=== PATIENT | female | born 1955 | race Caucasian/White ===

== ENCOUNTER → 2016-10-26 | Outpatient (CLI) | payer MEDICARE, MEDICAID ==
[~2016-10-26] MED LIST: AC325T PO; AC500T PO; ACET-2303 PO; ALBU2.5V52 INH; AMPH20TA2 PO; AMPH30TA2 PO; CALC-9 PO; DCS100C PO; FESO8TAB SQ; FLC100T1 PO; HYDR25CA92 PO; KCL20TCR PO; LEVO750T24 PO; LRT10T PO; LSNP20T PO; MELO-198 PO; NITR-65 PO; OMEP-10 PO; PNT40TEC PO; TERI202.4P SQ
--- NOTE | 2016-10-26 13:36 | Diagnostic Imaging Report ---
PROCEDURE: CT head without contrast. TECHNIQUE: Multiple contiguous axial images were obtained through the brain without the use of intravenous contrast. Indication: Headache, evaluate shunt placement and function. Comparison: 04/06/2013. Discussion: No adverse interval change. Bilateral transfrontal ventriculostomy catheters are again noted, unchanged in position. Dense calcification along the tip of the right catheter in the right basal ganglia is stable. Chronic lacunar infarct within the right basal ganglia stable. Mild asymmetrical appearance of the lateral ventricles is stable, right greater than left. No midline shift. White matter hypoattenuation is nonspecific though not greater than expected for age related chronic small vessel ischemic disease, stable. 1 cm high attenuation nodule along the anterior right falx is stable, likely a meningioma. Senescent intraparenchymal calcifications are present within the posterior right frontal lobe, increased from prior. The visualized orbits, paranasal sinuses, mastoid air cells, and calvarium are unremarkable. Impression: 1. Stable head CT. Dictated by: Dictated on workstation # [id number]
== END ==
LOC: RAD 13:13
PROVIDERS: ATTEND Family Medicine
DX: T85.09XA 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, initial encounter (principal)
CPT/HCPCS: 70450

== ENCOUNTER → 2017-05-04 | Outpatient (CLI) | payer MEDICARE, MEDICAID | LOC: WOUNDCARE 09:54 | PROVIDERS: ATTEND Surgery | DX: Z53.9 Procedure and treatment not carried out, unspecified reason (principal) | CPT/HCPCS: 11042 ==

== ENCOUNTER → 2017-05-11 | Outpatient (CLI) | payer MEDICARE, MEDICAID | LOC: WOUNDCARE 08:58 | PROVIDERS: ATTEND Surgery | DX: L98.492 Non-pressure chronic ulcer of skin of other sites with fat layer exposed (principal); L03.311 Cellulitis of abdominal wall; L03.313 Cellulitis of chest wall; L30.4 Erythema intertrigo; R41.843 Psychomotor deficit | CPT/HCPCS: 11042 ==

== ENCOUNTER → 2017-05-25 | Outpatient (CLI) | payer MEDICARE, MEDICAID | LOC: WOUNDCARE 09:03 | PROVIDERS: ATTEND Surgery | DX: S30.851A Superficial foreign body of abdominal wall, initial encounter (principal); L98.492 Non-pressure chronic ulcer of skin of other sites with fat layer exposed; L03.311 Cellulitis of abdominal wall; L03.313 Cellulitis of chest wall; L30.4 Erythema intertrigo; R41.843 Psychomotor deficit | CPT/HCPCS: 99213 ==

== ENCOUNTER 2017-05-30 05:30 | Outpatient (CLI) | payer MEDICARE, MEDICAID ==
[~2017-05-30] VITALS: Ht 157.5 cm; Wt 68.0 kg
[2017-05-30] MEDS ORDERED: ACET325T49 PO (11:53)
[2017-05-30] MEDS ORDERED: CHOL5000 PO (11:53)
[2017-05-30] MEDS ORDERED: MAGN400O7 PO (11:53)
[2017-05-30] MEDS ORDERED: DOCU-163 PO (11:53)
[2017-05-30] MEDS ORDERED: BISA5TAB8 PO (11:53)
[2017-05-30] MEDS ORDERED: LANS15CA21 PO (11:53)
[2017-05-30] MEDS ORDERED: POLY454P4 PO (11:53)
[2017-05-30] MEDS ORDERED: ASPI-586 PO (11:53)
[2017-05-30] MEDS ORDERED: MULT-35 PO (11:53)
[2017-05-30] MEDS ORDERED: SENN8.6T81 PO (11:53)
[2017-05-30] MEDS ORDERED: POTA8TAB6 PO (11:53)
== END 2017-05-30 11:55 ==
LOC: PREOP 05:30
PROVIDERS: ATTEND Surgery
DX: Z01.818 Encounter for other preprocedural examination (principal); S21.102A Unspecified open wound of left front wall of thorax without penetration into thoracic cavity, initial encounter; S31.109A Unspecified open wound of abdominal wall, unspecified quadrant without penetration into peritoneal cavity, initial encounter; X58.XXXA Exposure to other specified factors, initial encounter; Y99.8 Other external cause status

== ENCOUNTER → 2017-06-01 | Outpatient (CLI) | payer MEDICARE, MEDICAID ==
[~2017-06-01] MED LIST changes: +ACET325T49 PO; +ASPI-586 PO; +BISA5TAB8 PO; +BUP/EPI 0.5% 1:200,000 (MARCAINE) 10ML VIAL IJ ONE; +CHOL5000 PO; +DOCU-163 PO; +HYDR-3816 PO; +LANS15CA21 PO; +MAGN400O7 PO; +MULT-35 PO; +POLY454P4 PO; +POTA8TAB6 PO; +SENN8.6T81 PO
== END ==
LOC: WOUNDCARE 08:55
PROVIDERS: ATTEND Surgery
DX: S30.851A Superficial foreign body of abdominal wall, initial encounter (principal); L98.492 Non-pressure chronic ulcer of skin of other sites with fat layer exposed; L03.311 Cellulitis of abdominal wall; L03.313 Cellulitis of chest wall; L30.4 Erythema intertrigo; R41.843 Psychomotor deficit
CPT/HCPCS: 99213

== ENCOUNTER 2017-06-02 12:00 | Day surgery (SDC) | payer MEDICARE, MEDICAID ==
[~2017-06-02] VITALS: Ht 157.5 cm; Wt 68.0 kg
[2017-06-02 11:45] VITALS: BP 137/58
[~2017-06-02 12:00] MED LIST changes: -BUP/EPI 0.5% 1:200,000 (MARCAINE) 10ML VIAL IJ ONE; -HYDR-3816 PO
[2017-06-02] MEDS ORDERED: ceFAZolin 1 GM/NS 50 ML IVPB IV ONE ×2 (12:30)
--- NOTE | 2017-06-02 12:47 | Progress Note-Pre Operative ---
Pre-Operative Progress Note H&P Reviewed The H&P was reviewed, patient examined and no changes noted. Date Seen by Provider: Jun 02, 2017 Time Seen by Provider: 12:45 Date H&P Reviewed: Jun 02, 2017 Time H&P Reviewed: 12:45 Pre-Operative Diagnosis: non-healing open abdominal wall wounds CARLOS WHITE MD Jun 02, 2017 12:47 pm
[2017-06-02] MEDS ORDERED: ACETAMINOPHEN 325 MG TABLET/CAPLET (TYLENOL) PO PRN (13:00)
[2017-06-02] MEDS ORDERED: morphine INJ 10 MG/ML 1ML (SYR OR VIAL) IVP PRN ×2 (13:00→16:45)
[2017-06-02] MEDS ORDERED: ONDANSETRON 4 MG/2 ML (SDV) Z0FRAN IVP PRN ×2 (13:00→16:45)
[2017-06-02] MEDS ORDERED: HYDROcodone/APAP 5 MG/325 MG (LORTAB) TAB PO ONE (13:00)
[2017-06-02] MEDS ORDERED: proPOfol 200 MG/20 ML (DIPRIVAN) VIAL IV ONE (13:41)
[2017-06-02] MEDS ORDERED: MIDAZOLAM 2 MG/2 ML (VERSED) VIAL ONE (13:41)
[2017-06-02] MEDS ORDERED: ROCURONIUM 50 MG/5 ML (ZEMURON) VIAL IV ONE (13:41)
[2017-06-02] MEDS ORDERED: LIDOCAINE JELLY 2% (XYLOCAINE) 5 ML TUBE ONE (13:41)
[2017-06-02] MEDS ORDERED: ONDANSETRON 4 MG/2 ML (SDV) Z0FRAN ONE ×2 (13:41→15:24)
[2017-06-02] MEDS ORDERED: LIDOCAINE PF 2% 5 ML (XYLOCAINE) VIAL ONE (13:41)
[2017-06-02] MEDS ORDERED: LACTATED RINGERS 0 ML IV ONE (13:41)
[2017-06-02] MEDS ORDERED: fentaNYL INJECTION 100 MCG/2 ML AMP ONE (13:42)
[2017-06-02] MEDS ORDERED: HYDROmorphone (DILAUDID) 2 MG/ML VIAL ONE (15:24)
[2017-06-02] MEDS ORDERED: morphine INJ 10 MG/ML 1ML (SYR OR VIAL) ONE ×2 (15:24→15:42)
[2017-06-02] MEDS ORDERED: KETOROLAC 30 MG/ML VIAL ONE (15:24)
[2017-06-02] MEDS ORDERED: NEOSTIGMINE (BLOXIVERZ ) 1 MG/1ML 10 ML VIAL ONE (16:15)
[2017-06-02] MEDS ORDERED: GLYCOPYRROLATE 0.2 MG/ML (ROBINUL) 2 ML VIAL ONE (16:15)
[2017-06-02] MEDS ORDERED: SEVOFLURANE (ULTANE) 15 ML INHAL SOLN ONE (16:34)
--- NOTE | 2017-06-02 16:44 | Progress Note-Post Operative ---
Post-Operative Progess Note Surgeon (s)/Bacteriologist Soil (s) Surgeon CARLOS WHITE MD Bacteriologist Soil: jack moreno SAND SCREENER Pre-Operative Diagnosis non-healing open abdominal wall wounds Post-Operative Diagnosis foreign body right upper abdomen(catheter), extensive fibrosis abdominal wall, possible incorporated hernia mesh, no obvious foreign body. Procedure & Operative Findings Date of Procedure 06/02/17 Procedure Performed/Findings removal foreign and debridement right upper abdominal wall, mini laparotomy with bx abdominal wall and primary closure. Anesthesia Type general LMA Estimated Blood Loss Estimated blood loss (mL): minimal Specimens/Packing Specimens Removed abdominal wall foreign body, abdominal wall. CARLOS WHITE MD Jun 02, 2017 4:44 pm
[2017-06-02] MEDS ORDERED: MEPERIDINE (DEMEROL) INJ 50 MG/ML IVP PRN (16:45)
[2017-06-02] MEDS ORDERED: BUP/EPI 0.5% 1:200,000 (SENSORCAINE) 30 ML VIAL INJ ONE (16:45)
[2017-06-02] MEDS ORDERED: HYDR-3816 PO (16:46)
--- NOTE | 2017-06-02 16:47 | Discharge Inst-Surgical ---
D/C Lap Instructions-CINDY New, Converted, or Re-Newed RX: RX on Chart Follow Up Appt in 2 weeks Activity as tolerated No driving for 24 hours No driving while on pain medications Incentive Spirometry use every 2 hours while awake Regular Diet Symptoms to Report: Fever over 101 degree F, Nausea/Vomiting Infection Signs and Symptoms to report: Increased redness, Foul odor of wound, Increased drainage Bathing instructions: May shower Operative Area Clean/Dry; Keep incision clean/dry If any problems/questions: Contact your physician or go to Emergency Room CARLOS WHITE MD Jun 02, 2017 4:47 pm
[2017-06-02 17:35] VITALS: BP 126/48
[2017-06-02 18:06] VITALS: BP 122/48
[2017-06-02 18:20] VITALS: BP 122/48
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
== END 2017-06-02 18:20 | disposition home or self-care (01) ==
LOC: SDC 12:00
PROVIDERS: ATTEND Surgery
DX: S30.851A Superficial foreign body of abdominal wall, initial encounter (principal); G35 Multiple sclerosis; K21.9 Gastro-esophageal reflux disease without esophagitis; F17.210 Nicotine dependence, cigarettes, uncomplicated; M19.91 Primary osteoarthritis, unspecified site; Z85.820 Personal history of malignant melanoma of skin; Z86.011 Personal history of benign neoplasm of the brain; Z79.899 Other long term (current) drug therapy; Z79.82 Long term (current) use of aspirin
CPT/HCPCS: 87081

== ENCOUNTER → 2017-06-15 | Outpatient (CLI) | payer MEDICARE, MEDICAID ==
[~2017-06-15] MED LIST changes: +HYDR-3816 PO
== END ==
LOC: WOUNDCARE 09:04
PROVIDERS: ATTEND Surgery
DX: S30.851A Superficial foreign body of abdominal wall, initial encounter (principal); L98.492 Non-pressure chronic ulcer of skin of other sites with fat layer exposed; R41.83 Borderline intellectual functioning
CPT/HCPCS: 99212

== ENCOUNTER → 2017-06-22 | Outpatient (CLI) | payer MEDICARE, MEDICAID | LOC: WOUNDCARE 08:58 | PROVIDERS: ATTEND Surgery | DX: L98.492 Non-pressure chronic ulcer of skin of other sites with fat layer exposed (principal); R41.843 Psychomotor deficit; S30.851A Superficial foreign body of abdominal wall, initial encounter | CPT/HCPCS: 11042; 87070; 87075; 87205 ==

== ENCOUNTER → 2017-06-25 | Outpatient (CLI) | payer MEDICARE, MEDICAID | PROVIDERS: ATTEND Family Medicine | DX: S31.109A Unspecified open wound of abdominal wall, unspecified quadrant without penetration into peritoneal cavity, initial encounter (principal); X58.XXXA Exposure to other specified factors, initial encounter; Y99.8 Other external cause status | CPT/HCPCS: 87070; 87077; 87186; 87205 ==

== ENCOUNTER 2017-06-28 14:07 | Day surgery (SDC) | payer MEDICARE, MEDICAID ==
[~2017-06-28] VITALS: Ht 157.5 cm; Wt 59.9 kg
--- NOTE | 2017-06-28 14:52 | ED GI ---
General Chief Complaint: Abdominal/GI Problems Stated Complaint: ABD PAIN Source of Information: Patient Exam Limitations: No Limitations History of Present Illness Time Seen By Provider: 14:49 Initial Comments To ER with left-sided abdominal pain around the wound. She's had a chronic wound for several months, about 6 months to the left-sided abdominal wound. About 6 months ago she had a laparotomy for retained piece of ventriculoperitoneal shunt on the right and some hard fibrous tissue on the left. No fevers or chills but she does report feeling generally poorly today. Patient has a ventriculoperitoneal shunt that was placed in the 1970s for an inoperable brain tumor and she also received cobalt therapy. She has residual left arm and leg paralysis.she is currently on Augmentin and doxycycline for this wound. She does follow with wound care Timing/Duration: Getting Worse, Intermittent Severity/Quality: Moderate Location: LUQ, LLQ Radiation: No Radiation Activities at Onset: None Allergies and Home Medications Allergies Coded Allergies: erythromycin base (Verified Allergy, Unknown, 04/06/13) fentanyl (Verified Allergy, Unknown, 04/06/13) Uncoded Allergies: CHROME SUTURES (Allergy, Unknown, 01/07/09) Home Medications Acetaminophen 325 Mg Tablet, 650 MG PO Q4H PRN for PAIN-MILD, (Reported) Aspirin 81 Mg Tablet.dr, PO DAILY, (Reported) Bisacodyl 5 Mg Tablet.dr, 5 MG PO Q12H PRN for CONSTIPATION-1ST LINE, (Reported) Cholecalciferol (Vitamin D3) 5,000 Unit Capsule, 5,000 UNIT PO DAILY, (Reported) Docusate Sodium 100 Mg Capsule, 100 MG PO Q8H PRN for CONSTIPATION-2ND LINE, ( Reported) Hydrocodone/Acetaminophen 1 Each Tablet, 1-2 EACH PO Q4H, #35 Prescribed by: CARLOS WHITE on 06/02/17 1646 Lansoprazole 15 Mg Capsule.dr, 15 MG PO DAILY, (Reported) Magnesium Hydroxide 400 Mg/5 Ml Oral.susp, 30 ML PO PRN PRN for CONSTIPATION- 3RD LINE, (Reported) Multivitamin 1 Each Tablet, 1 EACH PO DAILY, (Reported) Polyethylene Glycol 1000 500 Gm Powder, 17 GM PO Q8H PRN for CONSTIPATION-4TH LINE, (Reported) Potassium Chloride 8 Meq Tablet.er, 8 MEQ PO DAILY, (Reported) Sennosides 8.6 Mg Tablet, 8.6 MG PO BID, (Reported) Review of Systems Constitutional: see HPI EENTM: No Symptoms Reported Respiratory: No Symptoms Reported Cardiovascular: No Symptoms Reported Gastrointestinal: See HPI, Abdominal Pain, Other (there is 4 cm of erythema to the left side of the abdominal wall. This is indurated and there are 2 wounds channels. The most lateral wound channel on this has drainage of purulent brownish material. I'm unable to express any drainage by pressing on this. However a very large amount of material does rhythmically come out of the wound. I would have concerns about an enterocutaneous fistula.) Genitourinary: No Symptoms Reported Musculoskeletal: no symptoms reported Skin: no symptoms reported Endocrine: No Symptoms Reported Hematologic/Lymphatic: No Symptoms Reported Past Lsusmys-Ixviba-Kmvlsg Hx Patient Social History Type Used: Cigarettes Recent Foreign Travel: No Contact w/Someone Who Travel: No Recent Hopitalizations: Yes (left hip) Immunizations Up To Date Tetanus Booster (TDap): Unknown Surgeries Surgeries: Gallbladder, Tonsillectomy Respiratory Respiratory Disorders: COPD Reproductive System Hx Reproductive Disorders: No Sexually Transmitted Disease: No HIV/AIDS: No Female Reproductive Disorders: Denies Gastrointestinal Gastrointestinal Disorders: Gastroesophageal Reflux HEENT Loss of Vision: Denies Hearing Impairment: Denies Cancer Cancer: Brain, Skin, Melanoma Family Medical History Significant Family History: No Pertinent Family Hx Physical Exam Vital Signs VS - Last 72 Hours, by Label 06/28/17 14:22 Temp 97.6 Pulse 72 Resp 16 B/P (MAP) 118/49 Pulse Ox 98 O2 Delivery Room Air Capillary Refill : General Appearance: WD/WN, no apparent distress HEENT: PERRL/EOMI, normal ENT inspection Neck: non-tender, full range of motion Respiratory: no respiratory distress, no accessory muscle use Gastrointestinal: normal bowel sounds, non tender, other (erythema 7 cm left upper abdominal wall with brownish purulent drainage leaking out.) Extremities: normal range of motion, non-tender Neurologic/Psychiatric: alert, normal mood/affect, oriented x 3 Skin: normal color, warm/dry Progress/Results/Core Measures Results/Orders Lab Results Laboratory Tests Test 06/28/17 14:50 Range/Units White Blood Count 12.0 H 4.3-11.0 10^3/uL Red Blood Count 5.04 4.35-5.85 10^6/uL Hemoglobin 13.6 11.5-16.0 G/DL Hematocrit 44 35-52 % Mean Corpuscular Volume 87 80-99 FL Mean Corpuscular Hemoglobin 27 25-34 PG Mean Corpuscular Hemoglobin Concent 31 L 32-36 G/DL Red Cell Distribution Width 14.9 H 10.0-14.5 % Platelet Count 507 H 130-400 10^3/uL Mean Platelet Volume 9.9 7.4-10.4 FL Neutrophils (%) (Auto) 69 42-75 % Lymphocytes (%) (Auto) 19 12-44 % Monocytes (%) (Auto) 8 0-12 % Eosinophils (%) (Auto) 4 0-10 % Basophils (%) (Auto) 1 0-10 % Neutrophils # (Auto) 8.3 H 1.8-7.8 X 10^3 Lymphocytes # (Auto) 2.2 1.0-4.0 X 10^3 Monocytes # (Auto) 0.9 0.0-1.0 X 10^3 Eosinophils # (Auto) 0.5 H 0.0-0.3 10^3/uL Basophils # (Auto) 0.1 0.0-0.1 10^3/uL Sodium Level 149 H 135-145 MMOL/L Potassium Level 3.6 3.6-5.0 MMOL/L Chloride Level 109 H 98-107 MMOL/L Carbon Dioxide Level 28 21-32 MMOL/L Anion Gap 12 5-14 MMOL/L Blood Urea Nitrogen 23 H 7-18 MG/DL Creatinine 0.85 0.60-1.30 MG/DL Estimat Glomerular Filtration Rate > 60 BUN/Creatinine Ratio 27 Glucose Level 113 H 70-105 MG/DL Calcium Level 9.8 8.5-10.1 MG/DL Total Bilirubin 0.2 0.1-1.0 MG/DL Aspartate Amino Transf (AST/SGOT) 27 5-34 U/L Alanine Aminotransferase (ALT/SGPT) 20 0-55 U/L Alkaline Phosphatase 123 40-136 U/L Total Protein 8.6 H 6.4-8.2 GM/DL Albumin 3.8 3.2-4.5 GM/DL My Orders Orders - FELIPE BURRELL G[employer]PER Cbc With Automated Diff (06/28/17 14:52) Comprehensive Metabolic Panel (06/28/17 14:52) Ua Culture If Indicated (06/28/17 14:52) Saline Lock/Iv-Start (06/28/17 14:52) Ct Abdomen/Pelvis W (06/28/17 14:52) Iohexol Injection (Omnipaque 350 Mg/Ml 1 (06/28/17 15:00) Ns (Ivpb) (Sodium Chloride 0.9% Ivpb Bag (06/28/17 15:00) Pharmacy Communication (Pharmacy Communi (06/28/17 14:54) Medications Given in ED Current Medications Medications Dose Ordered Sig/Sarah Route Start Time Stop Time Status Last Admin Dose Admin Iohexol 100 ml ONCE ONCE IV 06/28/17 15:00 06/28/17 15:01 DC 06/28/17 15:47 100 ML Sodium Chloride 100 ml ONCE ONCE IV 06/28/17 15:00 06/28/17 15:01 DC 06/28/17 15:48 80 ML Vital Signs/I&O Vital Sign - Last 12Hours 06/28/17 14:22 Temp 97.6 Pulse 72 Resp 16 B/P (MAP) 118/49 Pulse Ox 98 O2 Delivery Room Air Departure Communication (Admissions) Progress Notes I discussed the case with Dr. White with information relayed through the day surgery nurse. Recommends having the patient sent to day surgery and he will do her as the next case. I reviewed cultures from 1716 which showed staph aureus without MRSA. Sensitive to the Augmentin and doxycycline that she is on. Impression Impression: Primary Impression: left abdominal wall abscess Disposition: HOME, SELF-CARE Condition: Stable Departure-Patient Inst. Decision time for Depature: 16:00 Referrals: BRIGETTE GIMENEZ DO (PCP/Family) Primary Care Physician Patient Instructions: Abscess Drainage, Percutaneous (DC) Add. Discharge Instructions: 1. Go directly to day surgery. Nothing to eat or drink in the meantime Copy Copies To 1: CARLOS WHITE MD; BRIGETTE GIMENEZ PETER J APRN Jun 28, 2017 14:52
[2017-06-28] MEDS ORDERED: NS 100 ML (IVPB) BAG IV ONE (15:00)
[2017-06-28] MEDS ORDERED: IOHEXOL 350 MG/ML 100 ML (OMNIPAQUE 350) VIAL IV ONE (15:00)
[2017-06-28 15:03] LABS: BASOPHILS # (AUTO) 0.1 10^3/uL (0.0-0.1); BASOPHILS % (AUTO) 1 % (0-10); EOSINOPHILS # (AUTO) 0.5 10^3/uL (0.0-0.3); EOSINOPHILS % (AUTO) 4 % (0-10); LYMPHOCYTES # (AUTO) 2.2 X 10^3 (1.0-4.0); LYMPHOCYTES % (AUTO) 19 % (12-44); MEAN CORPUSCULAR HEMOGLOBIN 27 PG (25-34); MEAN CORPUSCULAR HGB CONC 31 G/DL (32-36); MEAN CORPUSCULAR VOLUME 87 FL (80-99); MEAN PLATELET VOLUME 9.9 FL (7.4-10.4); MONOCYTES # (AUTO) 0.9 X 10^3 (0.0-1.0); MONOCYTES % (AUTO) 8 % (0-12); NEUTROPHILS # (AUTO) 8.3 X 10^3 (1.8-7.8); NEUTROPHILS % (AUTO) 69 % (42-75); PLATELET COUNT 507 10^3/uL (130-400); RED BLOOD COUNT 5.04 10^6/uL (4.35-5.85); RED CELL DISTRIBUTION WIDTH 14.9 % (10.0-14.5)
[2017-06-28 15:13] LABS: ALANINE AMINOTRANSFERASE 20 U/L (0-55); ALBUMIN 3.8 GM/DL (3.2-4.5); ANION GAP 12 MMOL/L (5-14); ASPARTATE AMINO TRANSFERASE 27 U/L (5-34); BILIRUBIN,TOTAL 0.2 MG/DL (0.1-1.0); BLOOD UREA NITROGEN 23 MG/DL (7-18); BUN/CREATININE RATIO 27; CALCIUM 9.8 MG/DL (8.5-10.1); CARBON DIOXIDE 28 MMOL/L (21-32); CHLORIDE 109 MMOL/L (98-107); CREATININE SERUM 0.85 MG/DL (0.60-1.30); GFR ESTIMATED > 60; GLUCOSE 113 MG/DL (70-105); POTASSIUM 3.6 MMOL/L (3.6-5.0); SODIUM 149 MMOL/L (135-145); TOTAL PROTEIN 8.6 GM/DL (6.4-8.2)
--- NOTE | 2017-06-28 16:11 | Diagnostic Imaging Report ---
PROCEDURE: CT abdomen and pelvis with contrast. TECHNIQUE: Multiple contiguous axial images were obtained through the abdomen and pelvis after administration of intravenous contrast. INDICATION: Abdominal pain and drainage. 100 mL of Omnipaque 350 is administered intravenously. FINDINGS: The lung bases demonstrate no significant abnormality. The liver, the spleen, the pancreas, and the adrenal glands appear unremarkable. Cholecystectomy clips are seen. The kidneys have symmetric enhancement and contrast excretion. There is no hydronephrosis. The urinary bladder appears unremarkable. There are moderate to large amounts of fecal material seen in the colon. There is a fluid collection with an air-fluid level seen in the anterior abdominal wall within the upper left side of the abdomen measuring 7.8 x 4.3 x 5.2 cm. This may relate to an abscess. This appears to involve the anterior abdominal wall muscles layer with no definitive involvement of the peritoneal cavity. Portion of the greater curvature of the stomach and the gastric body appears to be adherent to the abdominal wall just deep to the location of the abscess with no definitive communication. No peritoneal fluid collection is seen. The appendix is normal. There is a shunt tube seen in the right side of the abdomen and looped in the pelvis. The osseous structures demonstrate internal fixation of a proximal left femoral fracture. IMPRESSION: 1. Upper left anterior abdominal wall fluid collection with an air-fluid level measuring 7.8 cm in size may relate to an abscess. No obvious communication to the peritoneal cavity. There is, however, an area from the greater curvature of the gastric body that appears to be adherent to the anterior abdominal wall just deep to the fluid collection. If the fluid collection or drainage persists after draining this abscess, then a followup CT scan with oral contrast would be helpful to rule out a fistula. 2. Moderate amounts of fecal material seen in the colon and rectum. The findings were discussed with NANNETTE Abebe taking care of the patient at time of dictation. Dictated by: Dictated on workstation # [id number]
--- OUTSIDE RECORDS SUMMARY | 2017-06-28 16:12 | XMS REPORT | Continuity of Care Document ---
Author Author [employer] Organization [facility] Address Unknown Phone Unavailable Care Team Providers Care Recruiting Manager Name Role Phone [employer] Unavailable Unavailable Problems Medications Allergies, Adverse Reactions, Alerts Immunizations Results Vital Signs Encounters Location Location Details Encounter Type Encounter Number Reason For Visit Attending Provider ADM Date DC Date Status Source O Active [facility] Procedures Plan of Care Social History Assessment and Plan Family History Value Date Source Advance Directives Order Name Results Value Date Source
--- OUTSIDE RECORDS SUMMARY | 2017-06-28 16:13 | XMS REPORT | Clinical Summary ---
Author Author [facility] Organization [facility] Address Unknown Phone Unavailable Care Team Providers Care Assistant Production Manager Name Role Phone PCP Unavailable Source Comments Some departments are not documenting in the electronic medical record. If you do not see the information that you expected, contact Release of Information in the Health Information Management department at [phone] for further assistance in locating additional records.[facility] Allergies Active Allergy Reactions Severity Noted Date Comments Adhesive Tape (Rosins) RASH Medium 10/12/2016 Erythromycin SEE COMMENTS Low 10/12/2016 Anorexia Current Medications Prescription Sig. Disp. Refills Start End Date Status Date acetaminophen SR(+) Take 650 mg by mouth Active (TYLENOL) 650 mg tablet every 4 hours as needed for Pain. bisacodyl (DULCOLAX) 5 mg Take 5 mg by mouth every Active tablet 12 hours as needed for Constipation. docusate (COLACE) 100 mg Take 100 mg by mouth Active capsule every 8 hours as needed for Constipation. ketoconazole (NIZORAL) 2 Apply topically to Active % topical shampoo affected area once. Apply topically to affected area of damp skin, lather, leave on 5 minutes, and rinse. Repeat 2x/weekly potassium chloride(+) Take 8 mEq by mouth Active (MICRO-K) 10 mEq capsule daily. Take with a meal and a full glass of water. polyethylene glycol 3350 Take 17 g by mouth every Active (MIRALAX) 17 g packet 8 hours as needed. lansoprazole(+) DR Take 15 mg by mouth daily Active (PREVACID) 15 mg capsule 30 minutes before breakfast. cholecalciferol (VITAMIN Take 3,000 Units by mouth Active D-3) 1,000 units tablet daily. gentamicin 0.1 % topical Apply to area on head Active cream twice daily milk of magnesia (CONC) Take 10 mL by mouth four Active 2,400 mg/10 mL oral times daily as needed for suspension Heartburn. kjubiefk-zrg-fwhh-FA-lute Take 1 Tab by mouth Active in (CENTRUM SILVER WOMEN) daily. 8 mg iron-400 mcg-300 mcg tab aspirin EC 81 mg tablet Take 1 Tab by mouth 90 Tab 3 10/23/19 Active daily. Take with food. OK 17 to restart 1 week post op - 10/22/16 HYDROcodone/acetaminophen Take 1-2 Tabs by mouth 60 Tab 0 10/19/19 Active (NORCO) 5/325 mg tablet every 4 hours as needed 17 for Pain Bacitracin 500 unit/gram apply to incisions daily, 2 Tube 1 10/19/19 Active oint cover with xeroform, 17 telfa and head gauze Active Problems Problem Noted Date Hx of head and neck radiation 11/22/2016 Scalp laceration 11/02/2016 Hydrocephalus 10/12/2016 Benign neoplasm of skin of trunk, except scrotum 11/23/2007 Family History Medical History Relation Name Comments Alcohol abuse Father Hypertension Father Stroke Father Vision Loss Father Diabetes Maternal Grandfather Heart Disease Maternal Grandmother Vision Loss Maternal Grandmother Arthritis Mother Depression Mother Relation Name Status Comments Father Maternal Grandfather Maternal Grandmother Mother Social History Tobacco Use Types Packs/Day Years Used Date Current Every Day Smoker Cigarettes 1 15 Smokeless Tobacco: Never Used Alcohol Use Drinks/Week oz/Week Comments No 0 Standard 0.0 rarely drinks or equivalent Sex Assigned at Date Recorded Not on file Last Filed Vital Signs Vital Sign Reading Time Taken Blood Pressure 105/67 01/13/2017 10:40 AM CDT Pulse 41 01/13/2017 10:40 AM CDT Temperature 36.2 C (97.2 F) 11/15/2016 10:50 AM CDT Respiratory Rate 16 11/15/2016 10:50 AM CDT Oxygen Saturation 96% 10/18/2016 9:16 AM CDT Inhaled Oxygen - - Concentration Weight 59 kg (130 lb) 01/13/2017 10:40 AM CDT Height 157.5 cm (5' 2") 01/13/2017 10:40 AM CDT Body Mass Index 23.78 01/13/2017 10:40 AM CDT Plan of Treatment Health Maintenance Due Date Last Done Comments HEPATITIS C SCREENING 1954 PHYSICAL (COMPREHENSIVE) 1961 EXAM PERTUSSIS VACCINE 1965 TETANUS VACCINE 1971 CERVICAL CANCER SCREENING 1984 BREAST CANCER SCREENING 1994 COLORECTAL CANCER 2004 SCREENING SHINGLES VACCINE 2014 INFLUENZA VACCINE 03/08/2017 Implants Explanted Type Area Optical Lens Manufacturing Tech Device Expiration Model / Identifier Date Serial / Lot Equipment Maintenance Technician Shunt / Explanted: Qty: 2 on 10/15/2016 by LELAND / Keegan Sandra MD NA Results Not on filefrom Last 3 Months
[2017-06-28 16:20] VITALS: BP 112/58
[2017-06-28] MEDS ORDERED: ceFAZolin 1,000 MG (ANCEF) VIAL ONE (16:49)
[2017-06-28] MEDS ORDERED: NS (IVPB) 50 ML ONE (16:49)
[2017-06-28] MEDS ORDERED: LACTATED RINGERS 1,000 ML IV PRN (16:55)
[2017-06-28] MEDS ORDERED: FAMOTIDINE 20MG/2ML IV (PEPCID) IV ONE (17:00)
--- NOTE | 2017-06-28 17:03 | Progress Note-Pre Operative ---
Pre-Operative Progress Note H&P Reviewed The H&P was reviewed, patient examined and no changes noted. Date Seen by Provider: Jun 28, 2017 Time Seen by Provider: 17:00 Date H&P Reviewed: Jun 28, 2017 Time H&P Reviewed: 17:00 Pre-Operative Diagnosis: abdominal wall abscess. CARLOS WHITE MD Jun 28, 2017 5:03 pm
[2017-06-28] MEDS ORDERED: MIDAZOLAM 2 MG/2 ML (VERSED) VIAL ONE (17:06)
[2017-06-28] MEDS ORDERED: KETAMINE HCL 100 MG/ML 5 ML VIAL ONE (17:06)
[2017-06-28] MEDS ORDERED: BUP/EPI 0.5% 1:200,000 (MARCAINE) 10ML VIAL IJ ONE (17:16)
[2017-06-28] MEDS ORDERED: ceFAZolin 1 GM/NS 50 ML IVPB IV ONE ×2 (17:30)
[2017-06-28] MEDS ORDERED: proPOfol 200 MG/20 ML (DIPRIVAN) VIAL IV ONE (17:41)
--- NOTE | 2017-06-28 17:59 | Progress Note-Post Operative ---
Post-Operative Progess Note Surgeon (s)/Payroll And Benefits Manager (s) Surgeon CARLOS WHITE MD Payroll And Benefits Manager: jack moreno APRN Pre-Operative Diagnosis abdominal wall abscess. Post-Operative Diagnosis same (6x6cm), no fistula Procedure & Operative Findings Date of Procedure 06/28/17 Procedure Performed/Findings incision and drainage debridement abdominal wall 6x6cm. Anesthesia Type MAC with local Estimated Blood Loss Estimated blood loss (mL): minimal Specimens/Packing Specimens Removed none CARLOS WHITE MD Jun 28, 2017 5:59 pm
[2017-06-28] MEDS ORDERED: ACETAMINOPHEN 325 MG TABLET/CAPLET (TYLENOL) PO PRN (18:00)
[2017-06-28] MEDS ORDERED: morphine INJ 10 MG/ML 1ML (SYR OR VIAL) IVP PRN ×2 (18:00→18:15)
[2017-06-28] MEDS ORDERED: HYDROcodone/APAP 5 MG/325 MG (LORTAB) TAB PO ONE (18:00)
[2017-06-28] MEDS ORDERED: ONDANSETRON 4 MG/2 ML (SDV) Z0FRAN IVP PRN ×2 (18:00→18:15)
--- NOTE | 2017-06-28 18:09 | Discharge Inst-Surgical ---
D/C Lap Instructions-KIDO New, Converted, or Re-Newed RX: RX on Chart Follow Up Appt in 2 weeks Activity as tolerated wet to dry dressing change BID until completely closed. Regular Diet Symptoms to Report: Fever over 101 degree F, Nausea/Vomiting Infection Signs and Symptoms to report: Increased redness, Foul odor of wound, Increased drainage Bathing instructions: May shower Operative Area Clean/Dry; Keep incision clean/dry If any problems/questions: Contact your physician or go to Emergency Room CARLOS WHITE MD Jun 28, 2017 6:09 pm
[2017-06-28 18:20] VITALS: BP 118/55
[2017-06-28] MEDS ORDERED: PIPERACILLIN SODIUM/TAZOBACTAM 4.5 GM in NS (IVPB) 100 ML IV NR (19:30)
[2017-06-28 19:41] VITALS: BP 137/74
[2017-06-28] MEDS ORDERED: CATHETER FLUSH 10 ML SYR IV PRN (19:45)
[2017-06-28] MEDS: CATHETER FLUSH 10 ML SYR IV SCH (22:33)
[2017-06-29 00:50] VITALS: BP 114/58
[2017-06-29] MEDS: PIPERACILLIN SODIUM/TAZOBACTAM 4.5 GM in NS (IVPB) 100 ML IV SCH ×2 (01:05→09:12)
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
[2017-06-29 04:57] VITALS: BP 110/56
[2017-06-29] MEDS: CATHETER FLUSH 10 ML SYR IV SCH (06:36)
[2017-06-29 08:00] VITALS: BP 103/54
[2017-06-29] MEDS ORDERED: INFLUENZA TRIvalent 2017-2018 0.5 ML/45 MCG SYR IM ONE (09:15)
[2017-06-29] MEDS ORDERED: AMOX1TAB11 PO (10:08)
[2017-06-29] MEDS ORDERED: MULT-166 PO (10:08)
[2017-06-29] MEDS ORDERED: POLY17PO6 PO (10:08)
[2017-06-29] MEDS ORDERED: ACET-2429 PO (10:08)
[2017-06-29] MEDS ORDERED: DOXY100C42 PO (10:08)
[2017-06-29] MEDS ORDERED: SENN8.6T68 PO (10:08)
[2017-06-29] MEDS ORDERED: MAGN400O7 PO (10:08)
[2017-06-29] MEDS ORDERED: POTA8CAP9 PO (10:08)
[2017-06-29] MEDS ORDERED: OXYC-197 PO (10:08)
[2017-06-29 11:45] VITALS: BP 103/54
--- NOTE | 2017-06-29 12:49 | Anesthesia-General Post-Op ---
General Patient Condition Mental Status/LOC: Same as Preop Cardiovascular: Satisfactory Nausea/Vomiting: Absent Respiratory: Satisfactory Pain: Controlled Complications: Absent Post Op Complications Complications None Follow Up Care/Instructions Patient Instructions None needed. Anesthesia/Patient Condition Patient Condition Patient is doing well, no complaints, stable vital signs, no apparent adverse anesthesia problems. No complications reported per nursing. D/C home per [facility] Criteria: No ROBYN CAZARES CRNA Jun 29, 2017 12:49
== END 2017-06-29 11:45 | disposition home or self-care (01) ==
LOC: EDUNIT# 14:07 → ER 14:09 → SDC 16:08 → 4TH 18:20 → SDC 06-29 11:45
PROVIDERS: ATTEND Surgery
DX: L02.211 Cutaneous abscess of abdominal wall (principal); G35 Multiple sclerosis; F17.210 Nicotine dependence, cigarettes, uncomplicated; M19.91 Primary osteoarthritis, unspecified site; G83.24 Monoplegia of upper limb affecting left nondominant side; G83.14 Monoplegia of lower limb affecting left nondominant side; Z85.820 Personal history of malignant melanoma of skin; Z86.011 Personal history of benign neoplasm of the brain; Z79.899 Other long term (current) drug therapy; Z79.82 Long term (current) use of aspirin
CPT/HCPCS: 36415; 74177; 80053; 85025; 87070; 87075; 87077; 87081; 87205

== ENCOUNTER → 2017-07-06 | Outpatient (CLI) | payer MEDICARE, MEDICAID ==
[~2017-07-06] MED LIST changes: +ACET-2429 PO; +AMOX1TAB11 PO; +DOXY100C42 PO; +MULT-166 PO; +OXYC-197 PO; +POLY17PO6 PO; +POTA8CAP9 PO; +SENN8.6T68 PO
== END ==
LOC: WOUNDCARE 09:07
PROVIDERS: ATTEND Surgery
DX: L98.492 Non-pressure chronic ulcer of skin of other sites with fat layer exposed (principal); R41.843 Psychomotor deficit; S30.851A Superficial foreign body of abdominal wall, initial encounter
CPT/HCPCS: 99212

== ENCOUNTER → 2017-07-13 | Outpatient (CLI) | payer MEDICARE, MEDICAID ==
--- NOTE | 2017-07-13 12:50 | Diagnostic Imaging Report ---
PROCEDURE: CT abdomen without contrast. TECHNIQUE: Multiple contiguous axial images were obtained through the abdomen without the use of intravenous contrast. INDICATION: Draining wound in the anterior abdominal wall. FINDINGS: Oral contrast is given opacifying the stomach and small bowel loops. Oral contrast is seen leaking into the abdominal wall collection from the gastric body anterior aspect. This could relate to a fistula along a tract of an old gastrostomy tube. There is no bowel obstruction. There is no significant fluid collection seen at this time in the abdomen. The abdominal aorta is normal in caliber. No para-aortic significantly enlarged lymph node seen. The kidneys demonstrate no hydronephrosis. The liver, the pancreas, the spleen, and the adrenal glands appear unremarkable. Cholecystectomy clips are seen. The osseous structures appear grossly unremarkable. IMPRESSION: Findings compatible with a gastrocutaneous fistula, involving the gastric body which appears to be adherent to the anterior abdominal wall at the site of the fistula. Dictated by: Dictated on workstation # [id number]
== END ==
LOC: RAD 08:14
PROVIDERS: ATTEND Nurse Practitioner Family
DX: T81.89XA Other complications of procedures, not elsewhere classified, initial encounter (principal); Z90.49 Acquired absence of other specified parts of digestive tract
CPT/HCPCS: 74150

== ENCOUNTER → 2017-07-27 | Outpatient (CLI) | payer MEDICARE, MEDICAID | LOC: WOUNDCARE 08:27 | PROVIDERS: ATTEND Surgery | DX: T81.83XA Persistent postprocedural fistula, initial encounter (principal); T81.31XD Disruption of external operation (surgical) wound, not elsewhere classified, subsequent encounter; L98.492 Non-pressure chronic ulcer of skin of other sites with fat layer exposed; R41.843 Psychomotor deficit | CPT/HCPCS: 99213 ==

== ENCOUNTER → 2018-08-15 | Outpatient (CLI) | payer MEDICARE, MEDICAID ==
[~2018-08-15] MED LIST changes: +HYDR-34 PO; -HYDR-3816 PO; -OXYC-197 PO; +OXYC1TAB87 PO
--- NOTE | 2018-08-15 13:14 | Diagnostic Imaging Report ---
Indication: Routine screening. No prior mammograms are available for comparison. 2-D and 3-D bilateral screening mammography was performed with CAD. Both breasts are heterogeneously dense, limiting the sensitivity of mammography. Overall positioning is extremely limited. No dominant mass or malignant-appearing microcalcifications are seen. Impression: BI-RADS category 1 Limited study. No definite mammographic features suspicious for malignancy are identified. ACR BI-RADS Category 1: Negative. Result letter will be mailed to the patient. Note: At least 10% of breast cancer is not imaged by mammography. Dictated by: Dictated on workstation # [id number]
== END ==
LOC: RAD 09:58
PROVIDERS: ATTEND Nurse Practitioner Family
DX: Z12.31 Encounter for screening mammogram for malignant neoplasm of breast (principal)
CPT/HCPCS: 77067

== ENCOUNTER 2018-09-26 14:14 | Outpatient (CLI) | payer MEDICARE, MEDICAID ==
[~2018-09-26] VITALS: Ht 157.5 cm; Wt 59.9 kg
== END 2018-09-26 16:00 | disposition home or self-care (01) ==
LOC: PREOP 14:14
PROVIDERS: ATTEND Surgery
DX: Z01.818 Encounter for other preprocedural examination (principal)

== ENCOUNTER 2018-10-02 07:14 | Day surgery (SDC) | payer MEDICARE, MEDICAID ==
[~2018-10-02] VITALS: Ht 157.5 cm; Wt 59.9 kg
[~2018-10-02 07:14] MED LIST changes: +AMIT10TA6 PO; +DULO30CA3 PO; +GLYC5.6S RC; +HYDR-3812 PO; +HYOS-20 PO; +POTA10CA43 PO; +RABE20TA27 PO
--- OUTSIDE RECORDS SUMMARY | 2018-10-02 07:18 | XMS REPORT | Clinical Summary ---
Author Author [facility] Organization [facility] Address Unknown Phone Unavailable Care Team Providers [place] Manager Name Role Phone Jermoe Aguilar MD Unavailable Cherri Holguin MD PCP Source Comments Some departments are not documenting in the electronic medical record. If you do not see the information that you expected, contact Release of Information in the Health Information Management department at [phone] for further assistance in locating additional records.[facility] Allergies Comments Active Allergy Reactions Severity Noted Date Adhesive Tape (Rosins) RASH Medium 10/12/2016 Anorexia Erythromycin SEE COMMENTS Low 10/12/2016 Medications End Date Status Medication Sig Dispensed Refills Start Date Active acetaminophen SR(+) Take 650 mg 0 (TYLENOL) 650 mg tablet by mouth every 4 hours as needed for Pain. Active bisacodyl (DULCOLAX) 5 mg Take 5 mg by 0 tablet mouth every 12 hours as needed for Constipation. Active docusate (COLACE) 100 mg Take 100 mg 0 capsule by mouth every 8 hours as needed for Constipation. Active ketoconazole (NIZORAL) 2 Apply 0 % topical shampoo topically to affected area once. Apply topically to affected area of damp skin, lather, leave on 5 minutes, and rinse. Repeat 2x/weekly Active potassium chloride(+) Take 8 mEq by 0 (MICRO-K) 10 mEq capsule mouth daily. Take with a meal and a full glass of water. Active polyethylene glycol 3350 Take 17 g by 0 (MIRALAX) 17 g packet mouth every 8 hours as needed. Active lansoprazole(+) DR Take 15 mg by 0 (PREVACID) 15 mg capsule mouth daily 30 minutes before breakfast. Active cholecalciferol (VITAMIN Take 3,000 0 D-3) 1,000 units tablet Units by mouth daily. Active gentamicin 0.1 % topical Apply to area 0 cream on head twice daily Active milk of magnesia (CONC) Take 10 mL by 0 2,400 mg/10 mL oral mouth four suspension times daily as needed for Heartburn. Active fqinbzax-wup-xlxh-FA-lute Take 1 Tab by 0 in (CENTRUM SILVER WOMEN) mouth daily. 8 mg iron-400 mcg-300 mcg tab Active aspirin EC 81 mg tablet Take 1 Tab by 90 Tab 3 mouth daily. 7 Take with food. OK to restart 1 week post op - 10/22/16 Active HYDROcodone/acetaminophen Take 1-2 Tabs 60 Tab 0 (NORCO) 5/325 mg tablet by mouth 7 every 4 hours as needed for Pain Active Bacitracin 500 unit/gram apply to 2 Tube 1 oint incisions 7 daily, cover with xeroform, telfa and head gauze Active Problems Problem [...] Maternal Grandfather Maternal Grandmother Mother Social History Date Tobacco Use Types Packs/Day Years Used Current Every Day Smoker Cigarettes 1 15 Smokeless Tobacco: Never Used Alcohol Use Drinks/Week oz/Week Comments No 0 Standard 0.0 rarely drinks or equivalent Sex Assigned at Date Recorded Not on file Industry Job Start Date Occupation Not on file Not on file Not on file Travel End Travel History Travel Start No recent travel history available. Last Filed Vital Signs Time Taken Vital Sign Reading 01/13/2017 10:40 AM CDT Blood Pressure 105/67 01/13/2017 10:40 AM CDT Pulse 41 11/15/2016 10:50 AM CDT Temperature 36.2 C (97.2 F) 11/15/2016 10:50 AM CDT Respiratory Rate 16 10/18/2016 9:16 AM CDT Oxygen Saturation 96% - Inhaled Oxygen - Concentration 01/13/2017 10:40 AM CDT Weight 59 kg (130 lb) 01/13/2017 10:40 AM CDT Height 157.5 cm (5' 2") 01/13/2017 10:40 AM CDT Body Mass Index 23.78 Plan of Treatment Health Maintenance Due Date Last Done Comments HEPATITIS C SCREENING 1954 PHYSICAL (COMPREHENSIVE) 1961 EXAM HIV SCREENING 1969 DTAP/TDAP VACCINES (1 - 1972 Tdap) CERVICAL CANCER SCREENING 1984 BREAST CANCER SCREENING 1994 COLORECTAL CANCER 2004 SCREENING SHINGLES RECOMBINANT 2004 VACCINE (1 of 2) INFLUENZA VACCINE 03/08/2018 Implants Device Identifier Shelf Expiration Date Model / Serial / Lot Explanted Type Area Manufactur er / NA / NA Test Desk Trouble Locator Shunt Explanted: Qty: 2 on 10/15/2016 by Keegan Sandra MD Results Not on filefrom Last 3 Months Insurance Payer Benefit Subscriber ID Type Phone Address Plan / Group MEDICARE MEDICARE xxxxxxxxxx Medicare PART A AND B [facility] AARP xxxxxxxxxxx PPO [facility] MEDICAID [place] [facility] xxxxxxxxxxx Medicaid [employer] [place] Advance Directives Patient has advance care planning documents, and code status on file. For more information, please contact: [facility] [address] [place] [address] Date Inactivated Comments Code Status Date Activated 10/18/2016 4:17 PM Full Code 10/12/2016 3:39 PM Provider has discussed Code Status No, discussion not w/Patient or Family? necessary based on Dx
--- OUTSIDE RECORDS SUMMARY | 2018-10-02 07:19 | XMS REPORT | Continuity of Care Document ---
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 EXTERNAL CAUSE STATUS 08/15/2018 JIM SURESH MD, Ot L98.492 NON-PRS CHRONIC ULCER OF SKIN OF SITES W 08/15/2018 JIM SURESH MD, Ot R41.843 PSYCHOMOTOR DEFICIT 08/15/2018 JIM SURESH MD, Ot S30.851A SUPERFICIAL FOREIGN BODY OF ABDOMINAL WA 08/15/2018 TUNG STYLES APRN Ot T81.89XA OTH COMPLICATIONS OF PROCEDURES, NEC, IN 08/15/2018 TUNG STYLES APRN Ot Z90.49 ACQUIRED ABSENCE OF OTHER SPECIFIED PART 08/15/2018 JIM SURESH MD Ot L98.492 NON-PRS CHRONIC ULCER OF SKIN OF SITES W 08/15/2018 JIM SURESH MD Ot R41.843 PSYCHOMOTOR DEFICIT 08/15/2018 JIM SURESH MD, Ot T81.31XD DISRUPTION OF EXTERNAL OPERATION (SURGIC 08/15/2018 JIM SURESH MD, Ot 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 Results Test Result Range Methicillin resistant Staphylococcus aureus (MRSA) screening culture - 12:15 Methicillin resistant Staphylococcus aureus (MRSA) screening culture NEG NRG Bacteria identification in isolate by anaerobe culture - 06/22/17 09:18 Bacteria identification in isolate by anaerobe culture NOANA NRG Gram stain microscopy - 06/22/17 09:18 GRAM STAIN RESULT FEW GRAM POSITIVE COCCI RESEMBLING STAPH NRG Bacteria identification in wound by culture - 06/22/17 09:18 Bacteria identification in wound by culture [id number] NR FREE TEXT EXTERNAL SENSITIVITY REPORTED AT 06-24-17 NRG QUANTITY OF GROWTH Moderate Growth NRG MRSA AGAR Screening test for MRSA is NEGATIVE (Final to follow) NR Bacterial susceptibility panel - 06/22/17 09:18 Oxacillin susceptibility test by minimum inhibitory concentration 0.5 NRG Gentamicin susceptibility test by minimum inhibitory concentration < = NRG Clindamycin susceptibility test by minimum inhibitory concentration >= NRG Erythromycin susceptibility test by minimum inhibitory concentration >= NRG Trimethoprim/sulfamethoxazole susceptibility test by minimum inhibitoryconcentration S NRG Vancomycin susceptibility test by minimum inhibitory concentration 1 NRG Levofloxacin susceptibility test by minimum inhibitory concentration >= NRG Rifampin susceptibility test by minimum inhibitory concentration <= NRG Tetracycline susceptibility test by minimum inhibitory concentration <= NRG Ciprofloxacin susceptibility test by minimum inhibitory concentration R NRG Gram stain microscopy - 06/25/17 00:30 GRAM STAIN RESULT FEW GRAM POSITIVE COCCI [facility] Bacteria identification in wound by culture - 06/25/17 00:30 Bacteria identification in wound by culture [id number] [facility] FREE TEXT EXTERNAL SENSITIVITY REPORTED AT 1229, 06-26-17 NR QUANTITY OF GROWTH Moderate Growth NR MRSA AGAR Screening test for MRSA is NEGATIVE (Final to follow) [facility] Bacterial susceptibility panel - 06/25/17 00:30 Oxacillin susceptibility test by minimum inhibitory concentration < = NRG Gentamicin susceptibility test by minimum inhibitory concentration < = NRG Clindamycin susceptibility test by minimum inhibitory concentration >= NRG Erythromycin susceptibility test by minimum inhibitory concentration >= NRG Trimethoprim/sulfamethoxazole susceptibility test by minimum inhibitoryconcentration S NRG Vancomycin susceptibility test by minimum inhibitory concentration 1 NRG Levofloxacin susceptibility test by minimum inhibitory concentration >= NRG Rifampin susceptibility test by minimum inhibitory concentration <= NRG Tetracycline susceptibility test by minimum inhibitory concentration <= NRG Ciprofloxacin susceptibility test by minimum inhibitory concentration R NRG Complete blood count (CBC) with automated white blood cell (WBC) differential - 06/28/17 14:50 Blood leukocytes automated count (number/volume) 12.0 10*3/uL 4.3-11.0 Blood erythrocytes automated count (number/volume) 5.04 10*6/uL 4.35-5.85 Venous blood hemoglobin measurement (mass/volume) 13.6 g/dL 11.5-16.0 Blood hematocrit (volume fraction) 44 % 35-52 Automated erythrocyte mean corpuscular volume 87 [foz_us] 80-99 Automated erythrocyte mean corpuscular hemoglobin (mass per erythrocyte) 27 pg 25-34 Automated erythrocyte mean corpuscular hemoglobin concentration measurement ( mass/volume) 31 g/dL 32-36 Automated erythrocyte distribution width ratio 14.9 % 10.0-14.5 Automated blood platelet count (count/volume) 507 10*3/uL 130-400 Automated blood platelet mean volume measurement 9.9 [foz_us] 7.4-10.4 Automated blood neutrophils/100 leukocytes 69 % 42-75 Automated blood lymphocytes/100 leukocytes 19 % 12-44 Blood monocytes/100 leukocytes 8 % 0-12 Automated blood eosinophils/100 leukocytes 4 % 0-10 Automated blood basophils/100 leukocytes 1 % 0-10 Blood neutrophils automated count (number/volume) 8.3 10*3 1.8-7.8 Blood lymphocytes automated count (number/volume) 2.2 10*3 1.0-4.0 Blood monocytes automated count (number/volume) 0.9 10*3 0.0-1.0 Automated eosinophil count 0.5 10*3/uL 0.0-0.3 Automated blood basophil count (count/volume) 0.1 10*3/uL 0.0-0.1 Comprehensive metabolic panel - 06/28/17 14:50 Serum or plasma sodium measurement (moles/volume) 149 mmol/L 135-145 Serum or plasma potassium measurement (moles/volume) 3.6 mmol/L 3.6-5.0 Serum or plasma chloride measurement (moles/volume) 109 mmol/L 98-107 Carbon dioxide 28 mmol/L 21-32 Serum or plasma anion gap determination (moles/volume) 12 mmol/L 5-14 Serum or plasma urea nitrogen measurement (mass/volume) 23 mg/dL 7-18 Serum or plasma creatinine measurement (mass/volume) 0.85 mg/dL 0.60-1.30 Serum or plasma urea nitrogen/creatinine mass ratio 27 NRG Serum or plasma creatinine measurement with calculation of estimated glomerular filtration rate > NRG Serum or plasma glucose measurement (mass/volume) 113 mg/dL 70-105 Serum or plasma calcium measurement (mass/volume) 9.8 mg/dL 8.5-10.1 Serum or plasma total bilirubin measurement (mass/volume) 0.2 mg/dL 0.1-1.0 Serum or plasma alkaline phosphatase measurement (enzymatic activity/volume) 123 U/L 40-136 Serum or plasma aspartate aminotransferase measurement (enzymatic activity/ volume) 27 U/L 5-34 Serum or plasma alanine aminotransferase measurement (enzymatic activity/volume ) 20 U/L 0-55 Serum or plasma protein measurement (mass/volume) 8.6 g/dL 6.4-8.2 Serum or plasma albumin measurement (mass/volume) 3.8 g/dL 3.2-4.5 Methicillin resistant Staphylococcus aureus (MRSA) screening culture - 17:00 Methicillin resistant Staphylococcus aureus (MRSA) screening culture NEG NRG Bacteria identification in isolate by anaerobe culture - 06/28/17 17:30 Bacteria identification in isolate by anaerobe culture NOANA NRG Gram stain microscopy - 06/28/17 17:30 GRAM STAIN RESULT RODS NRG Bacteria identification in wound by culture - 06/28/17 17:30 Bacteria identification in wound by culture [id number] NRG FREE TEXT EXTERNAL SENSITIVITY REPORTED 06/30/17 7:50 NRG QUANTITY OF GROWTH Moderate Growth NRG Bacterial susceptibility panel - 06/28/17 17:30 Oxacillin susceptibility test by minimum inhibitory concentration 0.5 NRG Gentamicin susceptibility test by minimum inhibitory concentration < = NRG Clindamycin susceptibility test by minimum inhibitory concentration >= NRG Erythromycin susceptibility test by minimum inhibitory concentration >= NRG Trimethoprim/sulfamethoxazole susceptibility test by minimum inhibitoryconcentration S NRG Vancomycin susceptibility test by minimum inhibitory concentration 1 NRG Levofloxacin susceptibility test by minimum inhibitory concentration >= NRG Rifampin susceptibility test by minimum inhibitory concentration <= NRG Tetracycline susceptibility test by minimum inhibitory concentration <= NRG Ciprofloxacin susceptibility test by minimum inhibitory concentration R NRG Encounters ACCT No. Visit Date/Time Discharge Status Pt. Type Provider Facility Loc./Unit Complaint [id number] 09/26/2018 14:14:00 09/26/2018 16:00:00 DIS Outpatient JEFF SAMANIEGO, VELVET Desai [facility] PREOP COLONOSCOPY [id number] 08/15/2018 09:58:00 08/15/2018 23:59:59 CLS Outpatient CJ BETANCOURT PACK OUT OPERATOR [facility] RAD SCREENING [id number] 07/27/2017 08:27:00 07/27/2017 23:59:59 CLS Outpatient JIM SURESH MD [facility] WOUNDCARE [id number] 07/13/2017 08:14:00 07/13/2017 23:59:59 CLS Outpatient TUNG STYLES PACK OUT OPERATOR [facility] RAD POSSIBLE FISTULA [id number] 07/06/2017 09:07:00 07/06/2017 23:59:59 CLS Outpatient JIM SURESH MD [facility] WOUNDCARE [id number] 06/28/2017 16:08:00 06/29/2017 11:45:00 DIS Outpatient CARLOS WHITE MD [facility] INCISION DRAINING OF ABD ABSCESS [id number] 06/25/2017 00:30:00 06/25/2017 23:59:59 CLS Outpatient CHERRI HOLGUIN DO [facility] MSL WOUND CULTURE [id number] 06/22/2017 08:58:00 06/22/2017 23:59:59 CLS Outpatient JIM SURESH MD [facility] WOUNDCARE [id number] 06/15/2017 09:04:00 06/15/2017 23:59:59 CLS Outpatient JIM SURESH MD [facility] WOUNDCARE [id number] 06/02/2017 12:00:00 06/02/2017 18:20:00 DIS Outpatient CARLOS WHITE MD [facility] NONHEALING WOUNDS [id number] 06/01/2017 08:55:00 06/01/2017 23:59:59 CLS Outpatient JIM SURESH MD [facility] WOUNDCARE [id number] 05/30/2017 05:30:00 05/30/2017 11:55:00 DIS Outpatient CARLOS WHITE MD [facility] PREOP NON HEALING WOUNDS [id number] 05/25/2017 09:03:00 05/25/2017 23:59:59 CLS Outpatient JIM SURESH MD [facility] WOUNDCARE [id number] 05/11/2017 08:58:00 05/11/2017 23:59:59 CLS Outpatient JIM SURESH MD [facility] WOUNDCARE [id number] 05/04/2017 09:54:00 05/04/2017 23:59:59 CLS Outpatient JIM SURESH MD [facility] WOUNDCARE [id number] 10/26/2016 13:13:00 10/26/2016 23:59:59 CLS Outpatient ORENDER DO CHERRI S [facility] RAD T85.09 [id number] 06/07/2014 10:12:00 06/07/2014 23:59:59 CLS Outpatient ORENDER DO CHERRI S [facility] RAD JOHNSON OF THROAT, OTHER DYSPHAGIA, FEEDING TUBE [id number] 02/21/2014 13:42:00 02/21/2014 17:14:00 DIS Emergency SHERRIE SAMANIEGO, GAMAL De Leon [facility] ER JOHNSON TO CHEST [id number] 06/20/2013 08:40:00 07/03/2013 13:51:00 DIS Outpatient DANIEL HOLGUIN DOQUELINE S [facility] REHAB LEFT HEMIPARESIS, WEAKNESS,CONTRACTURES [id number] 04/06/2013 15:20:00 04/11/2013 11:45:00 DIS Inpatient ERICNDER DO CHERRI S [facility] 4TH VOLUME DEPLETION, STAGE 1 DECUBITUS COCCYX [id number] 10/02/2018 08:00:00 PEN Preadmit JEFF SAMANIEGO, VELVET Desai [facility] ENDO SCREENING [id number] 04/23/2015 09:31:00 Document Registration [id number] 04/23/2015 09:31:00 Document Registration [id number] 07/10/2012 12:26:00 Document Registration [id number] 09/24/2011 11:38:00 Document Registration [id number] 01/05/2011 12:50:00 Document Registration [id number] 05/25/2010 14:41:00 Document Registration [id number] 05/04/2010 16:31:00 Document Registration [id number] 10/30/2009 10:18:00 Document Registration [id number] 02/06/2015 14:39:00 Document Registration 10/12/10 09/21/2018 23:22:00 09/21/2018 23:59:59 CLS Outpatient Vickie Holguinline S.
[2018-10-02] MEDS ORDERED: LACTATED RINGERS 1,000 ML IV STA (07:22)
[2018-10-02] MEDS ORDERED: LACTATED RINGERS 1,000 ML IV ONE (07:28)
[2018-10-02 07:57] VITALS: BP 147/98
[2018-10-02] MEDS ORDERED: PROPOFOL INJECTION 50 ML IV ONE (08:23)
--- NOTE | 2018-10-02 08:56 | Anesthesia-General Post-Op ---
MAC Patient Condition Mental Status/LOC: Same as Preop Cardiovascular: Satisfactory Nausea/Vomiting: Absent Respiratory: Satisfactory Pain: Controlled Complications: Absent Post Op Complications Complications None Follow Up Care/Instructions Patient Instructions None needed. Anesthesiology Discharge Order Discharge Order Patient is doing well, no complaints, stable vital signs, no apparent adverse anesthesia problems. No complications reported per nursing. JEAN CARLOS ENGLAND CRNA Oct 02, 2018 08:56
--- NOTE | 2018-10-02 08:59 | History & Physicial ---
History of Present Illness History of Present Illness Reason for visit/HPI to undergo screening colonoscopy Date of Admission 10/02/18 Date Seen by a Provider: Oct 02, 2018 Time Seen by a Provider: 08:05 I consulted on this patient on 10/02/18 08:57 Attending Physician Antonio Gandhi MD Admitting Physician Cherri Holguin DO Consult Allergies and Home Medications Allergies Coded Allergies: erythromycin base (Verified Allergy, Unknown, 06/28/17) fentanyl (Verified Allergy, Unknown, 06/28/17) Uncoded Allergies: CHROME SUTURES (Allergy, Unknown, 01/07/09) Home Medications Acetaminophen 650 Mg Tablet.er, 650 MG PO Q4H PRN for PAIN-MILD, (Reported) Amitriptyline HCl 10 Mg Tablet, 10 MG PO HS, (Reported) Aspirin 81 Mg Tablet.dr, 81 MG PO HS, (Reported) Bisacodyl 5 Mg Tablet.dr, 5 MG PO Q12H PRN for CONSTIPATION-4TH LINE, (Reported) Cholecalciferol (Vitamin D3) 5,000 Unit Capsule, 5,000 UNIT PO HS, (Reported) Docusate Sodium 100 Mg Capsule, 100 MG PO Q8H PRN for CONSTIPATION-1ST LINE, ( Reported) Duloxetine HCl 30 Mg Capsule.dr, 30 MG PO DAILY, (Reported) Glycerin 5.4 Gm/5.4 Ml Tonia.pf.logan, 5.4 GM RC TuSa, (Reported) Hydrocodone/Acetaminophen 1 Each Tablet, 1 TAB PO Q4H, (Reported) Hyoscyamine Sulfate 0.125 Mg Tablet, 0.125 MG PO Q4H PRN for INCREASE ORAL SECREATIONS, (Reported) Magnesium Hydroxide 400 Mg/5 Ml Oral.susp, 30 ML PO DAILY PRN for CONSTIPATION- 7TH LINE, (Reported) Multivitamin with Minerals 1 Each Tablet, 1 TAB PO HS, (Reported) Potassium Chloride 10 Meq Capsule.er, 10 MEQ PO HS, (Reported) Rabeprazole Sodium 20 Mg Tablet.dr, 20 MG PO DAILY, (Reported) Sennosides 8.6 Mg Tablet, 17.2 MG PO BID, (Reported) TAKE 2 (8.6MG) TABS Patient Home Medication List Home Medication List Reviewed: Yes Past [place]-Hczsdr Hx Patient Social History Marrital Status: single Employed/Student: unemployed Alcohol Use: Denies Use Recreational Drug Use: No Smoking Status: Current Everyday Smoker Type Used: Cigarettes Recent Foreign Travel: No Contact w/other who traveled: No Recent Hopitalizations: No Immunizations Up To Date Tetanus Booster (TDap): Unknown Date of Influenza Vaccine: Apr 27, 2018 Seasonal Allergies Seasonal Allergies: Yes Surgeries Yes (shunt x2, SKIN ) Gallbladder, Tonsillectomy Respiratory Yes Cardiovascular No Neurological Yes (HX BRAIN TUMOR, MEMORY LOSS) Parkinson's Disease Reproductive System Hx Reproductive Disorders: No Sexually Transmitted Disease: No HIV/AIDS: No Female Reproductive Disorders: Denies Genitourinary No Gastrointestinal Yes (HX OF ANOREXIA AT AGE 16) Gastroesophageal Reflux, Chronic Constipation Musculoskeletal Yes (MS) Osteoporosis, Arthritis Endocrine History of Endocrine Disorders: No HEENT History of HEENT Disorders: No Loss of Vision: Denies Hearing Impairment: Denies Cancer Yes Brain, Skin, Melanoma Type of Treatment: Surgical Intervention Psychosocial History of Psychiatric Problem: Yes Behavioral Health Disorders: Sleep Difficulties Integumentary History of Skin or Integumenta: No Blood Transfusions History of Blood Disorders: No Family Medical History Significant Family History: No Pertinent Family Hx Review of Systems Constitutional: no symptoms reported EENTM: no symptoms reported Respiratory: no symptoms reported Cardiovascular: no symptoms reported Gastrointestinal: no symptoms reported Genitourinary: no symptoms reported Musculoskeletal: joint pain Skin: no symptoms reported Psychiatric/Neurological: Anxiety Physical Exam Vital Signs Vital Signs - First Documented 10/02/18 07:57 Temp 98.4 Pulse 104 Resp 18 B/P (MAP) 147/98 (114) Pulse Ox 93 O2 Delivery Room Air Capillary Refill : Height, Weight, BMI Height: 5'2.00" Weight: 132lbs. 0.0oz. 59.884549ti; 24.1 BMI Method:Stated General Appearance: No Apparent Distress Neck: Normal Inspection Respiratory: Lungs Clear Cardiovascular: Regular Rate, Rhythm Gastrointestinal: Non Tender, Soft Rectal: Deferred Skin: Warm/Dry Assessment/Plan Assessment and Plan lady in need of screening colonoscopy. No family history of colon cancer. Discussed in detail. Admission Diagnosis Admission Status: Other (Outpt Proc) ANTONIO GANDHI MD Oct 02, 2018 08:59
--- NOTE | 2018-10-02 09:01 | Endo Procedure Record ---
Endo Procedure Report Date of Procedure Last Colonoscopy: Yes Oct 02, 2018 Surgeon (s) VELVET AGUILAR MD Post Procedure/Op Diagnosis normal colonoscopy Procedure Performed colonoscopy to cecum Description of Procedure Anesthesia Type: Conscious Sedation Specimen(s) collected/removed none Description of the Procedure Indication for the procedure: This lady, who is a resident at a local [facility] due to multiple neurologic issues, came in for screening colonoscopy. The family denied relevant history of colon cancer or polyps. Informed consent was obtained after reviewing the procedure in detail. Description of the procedure: She was placed in left lateral decubitus position and her vital signs conscious sedation was achieved using propofol infusion by our DIRECTOR OF SUSTAINABILITY. Digital rectal examination was unremarkable. The colonoscope was then introduced in the rectum and advanced to the cecum. The scope was then withdrawn slowly and the mucosa examined in a systematic fashion. There was no abnormality. She tolerated the procedure well and was taken back to the nursing area in a stable condition. Impression: Normal screening colonoscopy. No family history. Copy Copies To 1: BRIGETTE GIMENEZ XAVIER M MD Oct 02, 2018 09:01
--- NOTE | 2018-10-02 09:02 | Discharge Inst-Simple/Standard ---
Discharge Inst-Standard Discharge Medications New, Converted or Re-Newed RX: Other Patient Instructions/Follow Up Plan of Care/Instructions/FU: follow-up with her primary as needed Activity as Tolerated: Yes Discharge Diet: No Restrictions VELVTE AGUILAR MD Oct 02, 2018 09:02
[2018-10-02 09:05] VITALS: BP 121/73
[2018-10-02 09:35] VITALS: BP 148/90
[2018-10-02 10:38] VITALS: BP 148/90
== END 2018-10-02 09:40 ==
LOC: ENDO 07:14
PROVIDERS: ATTEND Surgery
DX: Z12.11 Encounter for screening for malignant neoplasm of colon (principal); G20 Parkinson's disease; K21.9 Gastro-esophageal reflux disease without esophagitis; K59.09 Other constipation; G35 Multiple sclerosis; M81.0 Age-related osteoporosis without current pathological fracture; F17.210 Nicotine dependence, cigarettes, uncomplicated; J44.9 Chronic obstructive pulmonary disease, unspecified; Z79.899 Other long term (current) drug therapy; Z79.82 Long term (current) use of aspirin; Z85.820 Personal history of malignant melanoma of skin; Z85.828 Personal history of other malignant neoplasm of skin; Z85.841 Personal history of malignant neoplasm of brain

== ENCOUNTER → 2019-06-12 | Outpatient (CLI) | payer MEDICARE, MEDICAID ==
[~2019-06-12] MED LIST changes: +POTA8CAP20 PO; -POTA8CAP9 PO
--- NOTE | 2019-06-12 15:44 | Diagnostic Imaging Report ---
INDICATION: Postmenopausal screening for osteoporosis. COMPARISON: None FINDINGS: AP Spine L1-L4: [BMD (g/cm2): 0.720] [T-Score: -4.0] [Z-Score: -2.6] [BMD Previous: 0.915] [BMD % Change: -21.3] LT Hip Neck: [BMD (g/cm2): NA] [T-Score: NA] [Z-Score: NA] LT Hip Total: [BMD (g/cm2):NA] [T-Score:NA] [Z-Score: NA] [BMD Previous: NA] [BMD % Change: NA] RT Hip Neck: [BMD (g/cm2):0.322] [T-Score:-5.2] [Z-Score:-3.8] RT Hip Total: [BMD (g/cm2):0.293] [T-score:-5.7] [Z-Score:-4.6] [BMD Previous:0.556] [BMD % Change:-47.3] *Indicates significant change from prior examination based on 95% confidence level. World Health Organization criteria for BMD interpretation classify patients as Normal (T-score at or above -1.0), Osteopenic (T-score between -1.0 and -2.5) or Osteoporotic (T-score at or below -2.5). LIMITATIONS AND MODIFICATION: None. FRACTURE RISK (FRAX SCORE): The ten year probability of (%): Major Osteoporotic Fracture: [49.8] Hip Fracture: [72.7] IMPRESSION: 1. Osteoporosis. 2. Baseline examination. 3. See below National Osteoporosis Foundation guidelines on when to potentially initiate pharmacologic therapy. Based on the National Osteoporosis Foundation Guidelines, pharmacologic treatment should be initiated in any of the following, unless clinical conditions suggest otherwise: * Any patient with prior fragility fracture of the hip or vertebrae. A spine fracture indicates 5X risk for subsequent spine fracture and 2X risk for subsequent hip fracture. * Osteoporosis (T-score <-2.5). * Postmenopausal women and men age 50 and older with low bone mass/osteopenia (T-score between -1.0 and -2.5) by DXA and 10-year major osteoporotic fracture greater than 20% or a 10-year probability of hip fracture greater than 3%. These fracture risks are supplied above in the FRAX score, if applicable. * Clinician judgement and/or patient preferences may indicate treatment for people with 10-year fracture probabilities above or below these levels. Dictated by: Dictated on workstation # [id number]
== END ==
LOC: RAD 14:11
PROVIDERS: ATTEND Family Medicine
DX: Z13.820 Encounter for screening for osteoporosis (principal); M81.0 Age-related osteoporosis without current pathological fracture; Z78.0 Asymptomatic menopausal state
CPT/HCPCS: 77080

== ENCOUNTER 2019-06-29 08:12 | Outpatient (CLI) | payer MEDICARE, MEDICAID ==
[~2019-06-29] VITALS: Ht 157.5 cm; Wt 61.5 kg
[2019-06-29 08:20] VITALS: BP 129/60
[2019-06-29] MEDS ORDERED: DENOSUMAB 60 MG/1 ML (PROLIA) SQ SCH (08:30)
== END 2019-06-29 09:15 | disposition home or self-care (01) ==
LOC: SDC 08:12
PROVIDERS: ATTEND Family Medicine
DX: M81.0 Age-related osteoporosis without current pathological fracture (principal)
CPT/HCPCS: 96372

== ENCOUNTER → 2019-08-23 | Outpatient (CLI) | payer MEDICARE, MEDICAID ==
[~2019-08-23] MED LIST changes: -ACET-2429 PO; +ACET650T41 PO
--- NOTE | 2019-08-23 15:37 | Diagnostic Imaging Report ---
INDICATION: Routine screening. Comparison is made with prior mammogram from 08/15/2018. 2-D and 3-D bilateral screening mammography was performed. The current study was also evaluated with a Computer Aided Detection (CAD) system. 3-D tomosynthesis was also performed and reviewed. FINDINGS: Both breasts are heterogeneously dense, limiting the sensitivity of mammography. Positioning remains extremely limited, limiting the study. No dominant mass or malignant-appearing microcalcifications are seen. Axillae are unremarkable. IMPRESSION: No mammographic features suspicious for malignancy are identified. ACR BI-RADS Category 1: Negative. Result letter will be mailed to the patient. Note: At least 10% of breast cancer is not imaged by mammography. Dictated by: Dictated on workstation # [id number]
== END ==
LOC: RAD 14:39
PROVIDERS: ATTEND Family Medicine
DX: Z12.31 Encounter for screening mammogram for malignant neoplasm of breast (principal)
CPT/HCPCS: 77067

== ENCOUNTER 2020-03-05 19:09 | Emergency (ER) | payer MEDICARE, MEDICAID ==
[~2020-03-05 19:09] MED LIST changes: +ACHD5005 PO; -HYDR-3812 PO
--- NOTE | 2020-03-05 19:28 | ED Head Injury ---
General Chief Complaint: Head/Cervical Problems Stated Complaint: HEAD INJ Nursing Triage Note: Staff reported to ems that they were pushing the patient in her wheelchair when she leaned forward and fell out of her chair. Patient has a large hematoma to the left mormonism area of her head. EMS state staff deny loss of consciousness and a c-collar was placed per EMS. Patient is alert and oriented upon arrival but is normally non-verbal. Source: patient Exam Limitations: no limitations History of Present Illness Date Seen by Provider: Mar 05, 2020 Time Seen by Provider: 19:24 Initial Comments To ER by EMS from local [facility] with a left temporal hematoma/laceration. She has Parkinson's and multiple sclerosis, fell forward out of her wheelchair just prior to arrival. Occurred: just prior to arrival Severity: moderate Location: temporal Loss of Consciousness: no loss of consciousness Allergies and Home Medications Allergies Coded Allergies: erythromycin base (Verified Allergy, Unknown, 06/28/17) fentanyl (Verified Allergy, Unknown, 06/28/17) Uncoded Allergies: CHROME SUTURES (Allergy, Unknown, 01/07/09) Home Medications Acetaminophen 650 Mg Tablet.er, 650 MG PO Q4H PRN for PAIN-MILD, (Reported) Amitriptyline HCl 10 Mg Tablet, 10 MG PO HS, (Reported) Aspirin 81 Mg Tablet.dr, 81 MG PO HS, (Reported) Bisacodyl 5 Mg Tablet.dr, 5 MG PO Q12H PRN for CONSTIPATION-4TH LINE, (Reported) Cholecalciferol (Vitamin D3) 5,000 Unit Capsule, 5,000 UNIT PO HS, (Reported) Docusate Sodium 100 Mg Capsule, 100 MG PO Q8H PRN for CONSTIPATION-1ST LINE, (Reported) Duloxetine HCl 30 Mg Capsule.dr, 30 MG PO DAILY, (Reported) Glycerin 5.4 Gm/5.4 Ml Tonia.pf.logan, 5.4 GM RC TuSa, (Reported) Hydrocodone Bit/Acetaminophen 1 Each Tablet, 1 TAB PO Q4H, (Reported) Hyoscyamine Sulfate 0.125 Mg Tablet, 0.125 MG PO Q4H PRN for INCREASE ORAL SECREATIONS, (Reported) Magnesium Hydroxide 400 Mg/5 Ml Oral.susp, 30 ML PO DAILY PRN for CONSTIPATION- 7TH LINE, (Reported) Multivitamin with Minerals 1 Each Tablet, 1 TAB PO HS, (Reported) Potassium Chloride 10 Meq Capsule.er, 10 MEQ PO HS, (Reported) Rabeprazole Sodium 20 Mg Tablet.dr, 20 MG PO DAILY, (Reported) Sennosides 8.6 Mg Tablet, 17.2 MG PO BID, (Reported) TAKE 2 (8.6MG) TABS Patient Home Medication List Home Medication List Reviewed: Yes Review of Systems Review of Systems Constitutional: see HPI Eyes: No Symptoms Reported Ears, Nose, Mouth, Throat: no symptoms reported Respiratory: no symptoms reported Cardiovascular: no symptoms reported Genitourinary: no symptoms reported Musculoskeletal: no symptoms reported Skin: no symptoms reported Psychiatric/Neurological: No Symptoms Reported Past Pxtuwyj-Vkwffh-Ymhlwz Hx Patient Social History Alcohol Use: Denies Use Recreational Drug Use: No Smoking Status: Current Everyday Smoker Type Used: Cigarettes Recent Foreign Travel: No Contact w/Someone Who Travel: No Recent Infectious Disease Expo: No Recent Hopitalizations: No Immunizations Up To Date Tetanus Booster (TDap): Unknown Date of Influenza Vaccine: Apr 27, 2018 Seasonal Allergies Seasonal Allergies: Yes Past Medical History Surgeries: Yes (shunt x2, SKIN ) Gallbladder, Tonsillectomy Respiratory: Yes COPD Cardiac: No Neurological: Yes (HX BRAIN TUMOR, MEMORY LOSS) Parkinson's Disease Reproductive Disorders: No Female Reproductive Disorders: Denies Sexually Transmitted Disease: No HIV/AIDS: No Genitourinary: No Gastrointestinal: Yes (HX OF ANOREXIA AT AGE 16) Gastroesophageal Reflux, Chronic Constipation Musculoskeletal: Yes (MS) Osteoporosis, Arthritis Endocrine: No HEENT: No Loss of Vision: Denies Hearing Impairment: Denies Cancer: Yes Brain, Skin, Melanoma What Type of Treatment Did You: Surgical Intervention Psychosocial: Yes Sleep Difficulties Integumentary: No Blood Disorders: No Family Medical History No Pertinent Family Hx Physical Exam Vital Signs Capillary Refill : Less Than 3 Seconds Height, Weight, BMI Height: 5'2.00" Weight: 132lbs. 0.0oz. 59.612255de; 24.1 BMI Method:Stated General Appearance: WD/WN, no apparent distress HEENT: PERRL/EOMI, normal ENT inspection, TMs normal, other (0.570 laceration to the lateral aspect of the left eyebrow depth to the subcutaneous tissue. This was cleansed with chlorhexidine/saline solution covered with Dermabond.) Neck: other (she is in a rigid cervical collar upon arrival. Nonverbal when I ask her questions) Respiratory: no respiratory distress, no accessory muscle use Gastrointestinal: normal bowel sounds, non tender Extremities: normal range of motion, non-tender Psychiatric: alert, oriented x 3 Crainal Nerves: normal hearing, normal speech, PERRL Motor/Sensory: no motor deficit, no sensory deficit Skin: normal color, warm/dry Crawford Coma Score Best Eye Response: (4) Open Spontaneously Best Verbal Response: (1) No Verbal Response Best Motor Response: (5) Localizes to Pain Petr Total: 10 Images 1 - Progress/Results/Core Measures Results/Orders My Orders Orders - FELIPE BURRELL APRN Ct Head/Cervical Spine Wo (03/05/20 19:15) Dipht,Pertuss(Acell),Tet Adult (Boostrix (03/05/20 19:30) Blood Pressure Mean: 104 Departure Impression Primary Impression: Fall at [facility] Qualified Codes: W19.XXXA - Unspecified fall, initial encounter; Y92.129 - Unspecified place in [facility] as the place of occurrence of the external cause Additional Impressions: Forehead laceration Qualified Codes: S01.81XA - Laceration without foreign body of other part of head, initial encounter Traumatic hematoma of forehead Qualified Codes: S00.83XA - Contusion of other part of head, initial encounter Disposition: 01 HOME, SELF-CARE Condition: Stable Departure-Patient Inst. Decision time for Depature: 19:27 Referrals: BRIGETTE GIMENEZ DO (PCP/Family) Primary Care Physician Patient Instructions: Closed Head Injury Add. Discharge Instructions: 1. Allow the glue to fall off on its own in 3-5 days. She can shower letting water run over this but do not apply any lotions creams or ointments to the skin glue. All discharge instructions reviewed with patient and/or family. Voiced understanding. FELIPE BURRELL APRN Mar 05, 2020 19:28
[2020-03-05] MEDS ORDERED: TETANUS,DIPTH,PERTUSS P/F (BOOSTRIX) 0.5 ML VIAL IM ONE (19:30)
--- NOTE | 2020-03-05 19:40 | Diagnostic Imaging Report ---
PROCEDURE: CT head and CT cervical spine without contrast. TECHNIQUE: Multiple contiguous axial images were obtained through the brain and cervical spine without the use of intravenous contrast. Sagittal and coronal reformations through the cervical spine were then performed. Auto Exposure Controls were utilized during the CT exam to meet ALARA standards for radiation dose reduction. INDICATION: Fall with head and neck injury. COMPARISON: Study of 10/26/2016. CT head: There is prominent left frontal scalp contusion. No underlying fracture is identified. There are bilateral frontal anabella holes. Catheters or electrodes extend into the lateral ventricles anteriorly bilaterally. There are dystrophic calcifications in the periphery of the ventricles and in the right posterior frontal lobe. There is also a probable 1 cm meningioma to the right of midline along the interhemispheric falx. No definite intracranial hemorrhage is identified. IMPRESSION: Left frontal scalp contusion without acute intracranial abnormality or significant change from previous study. CT cervical spine: There is loss of normal cervical lordosis. Vertebral body heights and disc spaces are maintained. Prevertebral soft tissues are unremarkable, and there is no evidence of paraspinous hematoma. There are mild diffuse degenerative findings in the cervical spine. IMPRESSION: Loss of normal cervical lordosis which may be due to positioning or muscle spasm. There is, otherwise, no CT evidence of acute cervical spinal abnormality. Dictated by: Dictated on workstation # [id number]
--- NOTE | 2020-03-05 20:00 | NUR ---
C-collar removed per Opal PEREZ
--- NOTE | 2020-03-05 20:08 | NUR ---
Patient is resting comfortably at this time.
[2020-03-05 20:41] VITALS: BP 153/88
--- OUTSIDE RECORDS SUMMARY | 2020-03-05 20:42 | XMS REPORT | Clinical Summary ---
Author Author [facility] Organization [facility] Address Unknown Phone Unavailable Care Team Providers Care Psychiatric Aides Teacher Name Role Phone Jerome Aguilar MD Unavailable Cherri Holguin MD PCP Source Comments Some departments are not documenting in the electronic medical record. If you d o not see the information that you expected, contact Release of Information in [facility] [employer] Information Management department at [phone] for further assistan ce in locating additional records.[facility] Allergies Comments Active Allergy Reactions Severity Noted Date Adhesive Tape (Rosins) RASH Medium 017 Anorexia Erythromycin SEE COMMENTS Low 10/12/2016 Medications [...] times daily as needed for Heartburn. Active ehzvckqh-bga-ldiu-FA-lute Take 1 Tab by 0 in (CENTRUM [...] 500 unit/gram apply to 2 Tube 1 0 oint incisions 7 daily, cover with xeroform, telfa and head gauze Active amitriptyline (ELAVIL) 10 Take 10 mg by 0 mg tablet mouth at bedtime as needed. Active duloxetine DR (CYMBALTA) Take 30 mg by 0 30 mg capsule mouth daily. Active hyoscyamine (ANASPAZ; Place 125 mcg 0 NULEV; SYMAX FASTABS; under tongue HYOMAX-FT; ED-SPAZ; every 4 hours OSCIMIN) 0.125 mg rapid as needed for dissolve tablet Cramps. Active lidocaine/hydrocortisone Apply 0 ac (SENATEC HC TP) topically to affected area. Active sennosides (SENNA PO) Take by 0 mouth. Active ergocalciferol (vitamin Take by 0 D2) (VITAMIN D PO) mouth. Active Problems Problem Noted Date Hx of head and neck radiation 11/22/2016 Scalp laceration 11/02/2016 Hydrocephalus 10/12/2016 Benign neoplasm of skin of trunk, except scrotum Family History Medical History Relation Name Comments Alcohol abuse Father Hypertension Father Stroke Father Vision Loss Father Diabetes Maternal Grandfather Heart Disease Maternal Grandmother Vision Loss Maternal Grandmother Arthritis Mother Depression Mother Relation Name Status Comments Father Maternal Grandfather Maternal Grandmother Mother Social History Date Tobacco Use Types Packs/Day Years Used Current Every Day Smoker Cigarettes 1 15 Smokeless Tobacco: Never Used Drinks/Week oz/Week Comments Alcohol Use 0 Standard drinks or equivalent 0.0 rarely No Sex Assigned at Date Recorded Not on file Industry Job Start Date Occupation Not on file Not on file Not on file Travel End Travel History Travel Start No recent travel history available. Last Filed Vital Signs Reading Time Taken Comments Vital Sign 91/76 10/13/2018 12:06 PM [employer] Blood Pressure 78 10/13/2018 12:06 PM [employer] Pulse 36.7 C (98 F) 10/13/2018 12:06 PM [employer] Temperature 16 11/15/2016 10:50 AM CDT Respiratory Rate 99% 10/13/2018 12:06 PM [employer] Oxygen Saturation - - Inhaled Oxygen Concentration 57.1 kg (125 lb 14.4 oz) 10/13/2018 12:06 PM [employer] Weight 157.5 cm (5' 2") 10/13/2018 12:06 PM [employer] Height 23.03 10/13/2018 12:06 PM [employer] Body Mass Index Plan of Treatment Health Maintenance Due Date Last Done Comments MEDICARE ANNUAL WELLNESS 1954 VISIT HIV SCREENING 1969 DTAP/TDAP VACCINES (1 - 1972 Tdap) HEPATITIS C SCREENING 1972 PHYSICAL (COMPREHENSIVE) 1972 EXAM BREAST CANCER SCREENING 1994 COLORECTAL CANCER 2004 SCREENING SHINGLES RECOMBINANT 2004 VACCINE (1 of 2) OSTEOPOROSIS 2019 SCREENING/MONITORING PNEUMONIA (PPSV23) 2019 VACCINE (1 of 1 - PPSV23) INFLUENZA VACCINE 05/08/2020 Implants Device Identifier Shelf Expiration Date Model / Serial / L ot Explanted Type Area Manufactur er / NA / NA Testing Engineer Shunt Explanted: Qty: 2 on 10/15/2016 by Keegan Sandra MD at [facility] Results Not on filefrom Last 3 Months Insurance Type Payer Benefit Subscriber ID Effective Phone Address Plan / Dates Group Medicare MEDICARE MEDICARE xxxxxxxxxxx 2007-P PART A AND resent B PPO [facility] AARP xxxxxxxxxxx 2014- Present Medicaid [facility] [place]ICAID [place] [facility] xxxxxxxxxxx 2016-P [employer] resent PLAN [place] Advance Directives Patient Nurse Office Explanation Type Date Recorded Advance 10/12/2016 2:27 PM Directive/DPOA Date Inactivated Comments Code Status Date Activated 10/18/2016 4:17 PM Full Code 10/12/2016 3:39 PM Provider has discussed Code Status No, discussion no t w/Patient or Family? necessary based on Dx
--- OUTSIDE RECORDS SUMMARY | 2020-03-05 20:43 | XMS REPORT | CCD ---
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 10e9/L 012 Unknown COMPLETE BLOOD COUNT [id number] ABS EOS 0.11 10e9/L 012 Unknown COMPLETE BLOOD COUNT [id number] ABS BASO 0.02 10e9/L 012 Unknown COMPLETE BLOOD COUNT [id number] RDW-SD 43.5 fL 2 Unknown THYROID STIMULATING HORMONE 50586 TSH 1.487 uIU/ML 05/29/2012 Unknown GFR CALC [id number] GFR AA >60 ML/MIN 05/29/2012 Unknown GFR CALC [id number] GFR NON-AA >60 ML/MIN 05/29/2012 Unknown FREE T4 84017 FREE T4 1.20 NG/DL 05/29/2012 Unknown COMPREHENSIVE METABOLIC 85331 AST 17 U/L 2011 Unknown COMPREHENSIVE METABOLIC 14475 ALT 16 IU/L 2011 Unknown COMPREHENSIVE METABOLIC 69624 BUN 9 MG/DL 2011 Unknown COMPREHENSIVE METABOLIC 37176 ALBUMIN 4.1 GM/DL 2011 Unknown COMPREHENSIVE METABOLIC 15273 CHLORIDE 106 MMOL/L 05/29 Unknown COMPREHENSIVE METABOLIC 78050 BILI TOT 0.4 MG/DL 2011 Unknown COMPREHENSIVE METABOLIC 15475 ALK PHOS 87 U/L 2011 Unknown COMPREHENSIVE METABOLIC 00499 SODIUM 142 MMOL/L 05/29 Unknown COMPREHENSIVE METABOLIC 64460 CREATININE 0.79 MG/DL 05/09 Unknown COMPREHENSIVE METABOLIC 10169 CALCIUM 9.2 MG/DL 2011 Unknown COMPREHENSIVE METABOLIC 05190 POTASSIUM 3.6 MMOL/L 05/29 Unknown COMPREHENSIVE METABOLIC 88924 PROT TOT 6.5 GM/DL 2011 Unknown COMPREHENSIVE METABOLIC 60663 Glucose 78 MG/DL 2011 Unknown COMPREHENSIVE METABOLIC 27127 BICARB 27 MMOL/L 2011 Unknown COMPREHENSIVE METABOLIC 79153 ANION GAP 9 MEQ/L 2011 Unknown Procedures Procedure Codes Date PPPS, subseq visit CPT-4: G0439 08/03/2018 PPPS, subseq visit CPT-4: G0439 07/12/2016 CUR TOBACCO NON-USER CPT-4: G8457 04/15/2015 URINALYSIS NONAUTO W/O SCOPE CPT-4: 12179 07/05/2012 URINE CULTURE/ COLONY COUNT CPT-4: 96460 07/05/2012 PRESCRIP TRANSMIT VIA ERX SY CPT-4: G8553 07/05/2012 ROUTINE VENIPUNCTURE CPT-4: 56174 05/29/2012 ASSAY OF FREE THYROXINE CPT-4: 39068 05/29/2012 ASSAY THYROID STIM HORMONE CPT-4: 88738 05/29/2012 COMPREHEN METABOLIC PANEL CPT-4: 56028 05/29/2012 COMPLETE CBC W/AUTO DIFF WBC CPT-4: 94764 05/29/2012 PRESCRIP TRANSMIT VIA ERX SY CPT-4: G8553 05/29/2012 PRESCRIP TRANSMIT VIA ERX SY CPT-4: G8553 02/02/2012 PRESCRIP TRANSMIT VIA ERX SY CPT-4: G8553 05/27/2011 PRESCRIP TRANSMIT VIA ERX SY CPT-4: G8553 02/22/2011 SERVICE REQUIRED FOR PMD CPT-4: G0372 06/15/2010 ROUTINE VENIPUNCTURE CPT-4: 75616 10/20/2009 Vital Signs Date Vital 02/20/2020 Blood Pressure 1: 116/64 Code: 8480-6 Heart Rate 1: 70 bpm Respiratory Rate: 18 bpm SpO2: 94% Temperature: 36.4 (C) / 97.5 (F) 12/03/2019 Blood Pressure 1: 106/58 Code: 8480-6 Heart Rate 1: 73 bpm Respiratory Rate: 18 bpm SpO2: 96% Temperature: 36.4 (C) / 97.5 (F) We ight: 138 lbs 10/01/2019 Blood Pressure 1: 92/60 Code: 8480-6 Heart Rate 1: 88 bpm Respiratory Rate: 16 bpm Temperature: 36.6 (C) / 97.9 (F) 06/25/2019 Blood Pressure 1: 118/74 Code: 8480-6 Heart Rate 1: 67 bpm SpO2: 97% Temperature: 36.2 (C) / 97.1 (F) Weight: 135 lbs 02/05/2019 Blood Pressure 1: 102/68 Code: 8480-6 Heart Rate 1: 76 bpm Respiratory Rate: 16 bpm SpO2: 95% Temperature: 36.6 (C) / 97.9 (F) 12/13/2018 Blood Pressure 1: 112/78 Code: 8480-6 Heart Rate 1: 72 bpm Height: Respiratory Rate: 16 bpm SpO2: 97% Temperature: 36.7 (C) / 98.1 (F) We ight: 11/27/2018 Blood Pressure 1: 112/68 Code: 8480-6 Heart Rate 1: 82 bpm Respiratory Rate: 18 bpm SpO2: 97% Temperature: 36.6 (C) / 97.8 (F) We ight: 09/25/2018 Blood Pressure 1: 106/68 Code: 8480-6 Heart Rate 1: 72 bpm Height: Respiratory Rate: 16 bpm SpO2: 94% Temperature: 36.7 (C) / 98.0 (F) We ight: 08/03/2018 Blood Pressure 1: 120/70 Code: 8480-6 Heart Rate 1: 76 bpm Respiratory Rate: 20 bpm SpO2: 93% Temperature: 36.1 (C) / 97.0 (F) We ight: 06/22/2018 Blood Pressure 1: 118/70 Code: 8480-6 Heart Rate 1: 67 bpm Respiratory Rate: 18 bpm SpO2: 96% Temperature: 36.1 (C) / 96.9 (F) We ight: 04/06/2018 Blood Pressure 1: 100/64 Code: 8480-6 Heart Rate 1: 76 bpm Height: Respiratory Rate: 20 bpm SpO2: 95% Temperature: 36.8 (C) / 98.2 (F) We ight: 03/06/2018 Blood Pressure 1: 106/70 Code: 8480-6 Heart Rate 1: 56 bpm Height: Respiratory Rate: 22 bpm SpO2: 97% Temperature: 35.7 (C) / 96.2 (F) We ight: 02/15/2018 Blood Pressure 1: 108/74 Code: 8480-6 Heart Rate 1: 84 bpm Height: Respiratory Rate: 18 bpm SpO2: 97% Temperature: 36.8 (C) / 98.3 (F) We ight: 12/12/2017 Blood Pressure 1: 114/72 Code: 8480-6 Heart Rate 1: 68 bpm Height: Respiratory Rate: 20 bpm SpO2: 96% Temperature: 36.6 (C) / 97.8 (F) We ight: 10/10/2017 Blood Pressure 1: 100/64 Code: 8480-6 Heart Rate 1: 84 bpm Height: Respiratory Rate: 20 bpm SpO2: 94% Temperature: 36.7 (C) / 98.0 (F) We ight: 09/19/2017 Blood Pressure 1: 108/66 Code: 8480-6 Heart Rate 1: 74 bpm Height: Respiratory Rate: 22 bpm SpO2: 97% Temperature: 35.9 (C) / 96.6 (F) We ight: 08/04/2017 Blood Pressure 1: 108/74 Code: 8480-6 Heart Rate 1: 80 bpm Height: Temperature: 36.8 (C) / 98.2 (F) Weight: 07/12/2017 Blood Pressure 1: 112/74 Code: 8480-6 Heart Rate 1: 80 bpm Respiratory Rate: 20 bpm Temperature: 36.8 (C) / 98.2 (F) Weight: 123 lbs 05/30/2017 Blood Pressure 1: 114/74 Code: 8480-6 Heart Rate 1: 82 bpm Height: Respiratory Rate: 22 bpm SpO2: 94% Temperature: 36.0 (C) / 96.8 (F) We ight: 05/02/2017 Blood Pressure 1: 112/70 Code: 8480-6 Heart Rate 1: 80 bpm Height: Respiratory Rate: 18 bpm SpO2: 94% Temperature: 36.6 (C) / 97.8 (F) We ight: 02/28/2017 Blood Pressure 1: 106/70 Code: 8480-6 Heart Rate 1: 86 bpm Height: Respiratory Rate: 18 bpm SpO2: 94% Temperature: 36.6 (C) / 97.8 (F) We ight: 12/06/2016 Blood Pressure 1: 116/74 Code: 8480-6 Heart Rate 1: 80 bpm Height: Respiratory Rate: 20 bpm SpO2: 95% Temperature: 37.0 (C) / 98.6 (F) We ight: 12/02/2016 Blood Pressure 1: 122/74 Code: 8480-6 Heart Rate 1: 88 bpm Height: Respiratory Rate: 20 bpm SpO2: 95% Temperature: 36.4 (C) / 97.5 (F) We ight: 12/01/2016 Blood Pressure 1: 126/74 Code: 8480-6 Heart Rate 1: 72 bpm Height: Respiratory Rate: 20 bpm SpO2: 95% Temperature: 37.0 (C) / 98.6 (F) We ight: 11/30/2016 Blood Pressure 1: 104/70 Code: 8480-6 Heart Rate 1: 84 bpm Height: Respiratory Rate: 20 bpm SpO2: 94% Temperature: 36.8 (C) / 98.2 (F) We ight: 10/26/2016 Blood Pressure 1: 126/78 Code: 8480-6 Heart Rate 1: 76 bpm Height: Respiratory Rate: 20 bpm SpO2: 95% Temperature: 36.6 (C) / 97.8 (F) We ight: 09/13/2016 Blood Pressure 1: 124/78 Code: 8480-6 Heart Rate 1: 76 bpm Height: Respiratory Rate: 20 bpm SpO2: 95% Temperature: 36.7 (C) / 98.1 (F) We ight: 07/12/2016 Blood Pressure 1: 114/66 Code: 8480-6 BMI: 25.8 Code: 79161-0 Heart Rate 1: 72 bpm Height: 5'2" Respiratory Rate: 20 bpm SpO2: 94% Tempera ture: 36.7 (C) / 98.0 (F) Weight: 141 lbs 2 oz 05/11/2016 Blood Pressure 1: 116/68 Code: 8480-6 Heart Rate 1: 80 bpm Height: Respiratory Rate: 20 bpm Temperature: 36.8 (C) / 98.3 (F) Weight: 12/23/2015 Blood Pressure 1: 11678 Code: 8480-6 Heart Rate 1: 76 bpm Height: Respiratory Rate: 20 bpm Temperature: 36.2 (C) / 97.2 (F) Weight: 09/23/2015 Blood Pressure 1: 124/78 Code: 8480-6 Heart Rate 1: 76 bpm Height: Respiratory Rate: 20 bpm Temperature: 36.1 (C) / 96.9 (F) Weight: 04/15/2015 Blood Pressure 1: 124/90 Code: 8480-6 Heart Rate 1: 10 8 bpm Height: Respiratory Rate: 20 bpm Temperature: 36.8 (C) / 98.2 (F) Weight: 01/14/2015 Blood Pressure 1: 116/78 Code: 8480-6 Heart Rate 1: 92 bpm Height: Respiratory Rate: 20 bpm Temperature: 36.3 (C) / 97.4 (F) Weight: 10/29/2014 Blood Pressure 1: 114/78 Code: 8480-6 Heart Rate 1: 84 bpm Height: Respiratory Rate: 20 bpm Temperature: 36.4 (C) / 97.5 (F) Weight: 08/20/2014 Blood Pressure 1: 104/70 Code: 8480-6 Heart Rate 1: 10 0 bpm Height: Respiratory Rate: 20 bpm Temperature: 36.9 (C) / 98.4 (F) Weight: 06/04/2014 Blood Pressure 1: 114/68 Code: 8480-6 Heart Rate 1: 92 bpm Height: Respiratory Rate: 20 bpm Temperature: 36.7 (C) / 98.1 (F) Weight: 05/06/2014 Blood Pressure 1: 118/90 Code: 8480-6 Heart Rate 1: 108 bpm Respiratory Rate: 20 bpm Temperature: 36.6 (C) / 97.9 (F) 08/07/2013 Blood Pressure 1: 116/78 Code: 8480-6 Heart Rate 1: 80 bpm Temperature: 36.5 (C) / 97.7 (F) 05/23/2013 Blood Pressure 1: 114/72 Code: 8480-6 Heart Rate 1: 88 bpm Respiratory Rate: 20 bpm Temperature: 36.6 (C) / 97.9 (F) 04/25/2013 Blood Pressure 1: 140/82 Code: 8480-6 Heart Rate 1: 78 bpm Respiratory Rate: 22 bpm Temperature: 36.3 (C) / 97.3 (F) 01/22/2013 Blood Pressure 1: 124/80 Code: 8480-6 Heart Rate 1: 100 bpm Respiratory Rate: 20 bpm Temperature: 36.7 (C) / 98.1 (F) 10/18/2012 Blood Pressure 1: 122/68 Code: 8480-6 Heart Rate 1: 72 bpm Respiratory Rate: 20 bpm Temperature: 36.6 (C) / 97.8 (F) 09/25/2012 Blood Pressure 1: 122/68 Code: 8480-6 Heart Rate 1: 68 bpm Temperature: 36.3 (C) / 97.4 (F) Weight: 08/24/2012 Blood Pressure 1: 108/68 Code: 8480-6 Heart Rate 1: 96 bpm Temperature: 36.9 (C) / 98.4 (F) 07/27/2012 Blood Pressure 1: 108/70 Code: 8480-6 Heart Rate 1: 92 bpm Respiratory Rate: 20 bpm Temperature: 36.6 (C) / 97.9 (F) 07/05/2012 Blood Pressure 1: 114/70 Code: 8480-6 Heart Rate 1: 92 bpm SpO2: 95% Temperature: 37.8 (C) / 100.1 (F) 05/29/2012 Blood Pressure 1: 114/72 Code: 8480-6 Heart Rate 1: 92 bpm Respiratory Rate: 20 bpm Temperature: 36.8 (C) / 98.2 (F) Weight: 129 lbs 02/02/2012 Blood Pressure 1: 122/80 Code: 8480-6 BMI: 24.9 Code: 54795-6 Heart Rate 1: 100 bpm Height: 5'2" Respiratory Rate: 20 bpm Temperature: 37 .1 (C) / 98.8 (F) Weight: 136 lbs 11/03/2011 Blood Pressure 1: 104/60 Code: 8480-6 BMI: 24.1 Code: 15103-5 Heart Rate 1: 88 bpm Height: 5'2" Respiratory Rate: 20 bpm Temperature: 36 .6 (C) / 97.8 (F) Weight: 132 lbs 08/25/2011 Blood Pressure 1: 128/86 Code: 8480-6 BMI: 24.9 Code: 81906-8 Heart Rate 1: 76 bpm Height: 5'2" Respiratory Rate: 20 bpm Temperature: 36 .2 (C) / 97.2 (F) Weight: 136 lbs 05/27/2011 Blood Pressure 1: 130/90 Code: 8480-6 BMI: 25.1 Code: 51033-5 Heart Rate 1: 68 bpm Height: 5'2" Temperature: 36.1 (C) / 97.0 (F) Weight: 137 lbs 04/15/2011 Blood Pressure 1: 92/58 Code: 8480-6 Heart Rate 1: 76 bpm Temperature: 36.8 (C) / 98.2 (F) Weight: 134 lbs 03/22/2011 Blood Pressure 1: 128/82 Code: 8480-6 Heart Rate 1: 88 bpm Respiratory Rate: 18 bpm Temperature: 36.9 (C) / 98.4 (F) Weight: 130 lbs 02/22/2011 Blood Pressure 1: 98/68 Code: 8480-6 Heart Rate 1: 88 bpm Temperature: 36.9 (C) / 98.4 (F) Weight: 134 lbs 01/26/2011 Blood Pressure 1: 118/80 Code: 8480-6 Heart Rate 1: 84 bpm Temperature: 36.4 (C) / 97.6 (F) Weight: 136 lbs 06/15/2010 Blood Pressure 1: 126/80 Code: 8480-6 Heart Rate 1: 76 bpm Temperature: 36.2 (C) / 97.2 (F) 05/04/2010 Blood Pressure 1: 126/84 Code: 8480-6 Heart Rate 1: 92 bpm Temperature: 36.2 (C) / 97.2 (F) 03/03/2010 Blood Pressure 1: 106/78 Code: 8480-6 Heart Rate 1: 92 bpm Temperature: 36.7 (C) / 98.1 (F) 10/20/2009 Blood Pressure 1: 114/70 Code: 8480-6 BMI: 22.9 Code: 37098-8 Heart Rate 1: 92 bpm Height: 5'2" Temperature: 36.4 (C) / 97.5 (F) Weight: 125 lbs Functional Status No Functional Status data Reason For Visit Reason For Visit Effective Dates Notes follow up 02/20/2020 swelling 12/10/2019 follow up 12/03/2019 2mo fwup follow up 10/01/2019 follow up 06/25/2019 follow up 02/05/2019 Sister said her dent ist is wanting to try speech therapy orders follow up 12/13/2018 follow up 11/27/2018 to right forearm, th ey are unsure what to use on it. follow up 09/25/2018 Patients family woul d like need for colonoscopy discussed with patient well woman exam (40-65 years) 08/03/2018 ~generic 06/22/2018 H&P follow up 04/06/2018 follow up 03/06/2018 2 Week follow up 02/15/2018 Sister states all me dications are given at bedtime so wonders if duloxetine should be switched to morning dose follow up 12/12/2017 2mo fwup follow up 10/10/2017 follow up 09/19/2017 follow up 08/04/2017 sores 07/12/2017 Sister would like to discuss hospice follow up 05/30/2017 3Month follow up 05/02/2017 follow up 02/28/2017 Discuss Labs follow up 12/06/2016 follow up 12/02/2016 1 day fwup follow up 12/01/2016 sores 11/30/2016 back pain 10/26/2016 follow up 09/13/2016 2mo fwup back pain 07/12/2016 follow up 05/11/2016 follow up 12/23/2015 3mo fwup follow up 09/23/2015 2mo fwup follow up 04/15/2015 1mo fwup follow up 01/14/2015 3mo fwup follow up 10/29/2014 3mo fwup follow up 08/20/2014 follow up 06/04/2014 1mo fwup follow up 05/06/2014 Hospital fwup follow up 08/07/2013 from Urgent Care follow up 05/23/2013 1mo fwup--Patient wa nting to go home follow up 04/25/2013 2 WEEK HOSPITAL F/U follow up 01/22/2013 follow up 10/18/2012 1mo fwup--going home next week follow up 09/25/2012 follow up 08/24/2012 1mo fwup follow up 07/27/2012 3wk fwup fever 07/05/2012 follow up 05/29/2012 4mo fwup follow up 02/02/2012 3mo fwup follow up 11/03/2011 2mo fwup follow up 08/25/2011 refill adderall eye erythema 05/27/2011 follow up 04/15/2011 1mo fwup follow up 03/22/2011 1mo fwup follow up 02/22/2011 1mo fwup muscle weakness 01/26/2011 needs paperwork fill ed out for PT muscle weakness 06/15/2010 follow up 05/04/2010 from physical therap y, going to inpatient care for intense PT for 2wks, will be going today follow up 03/03/2010 3mo fwup follow up 10/20/2009 PATIENT STOPPED PROZ AC, ZESTRIL, MV BECAUSE OF N/V Encounters Encounter Performer Location Codes Date ([id number]) OFFICE/OUTPATIENT VISIT EST Diagnosis: Hemiplegia, unspecified affecting left dominant side[ICD10: G81.92] Diagnosis: Gastro-esophageal reflux disease without esophagitis[ICD10: K21.9] Diagnosis: Muscle weakness (generalized)[ICD10: M62.81] Cherri Thomas [facility] CPT-4: 40175 02/20/2020 ([id number]) OFFICE/OUTPATIENT VISIT EST Diagnosis: Left arm cellulitis[ICD10: L03.114] Diagnosis: Skin tear of left upper extremity[ICD10: S41.112A] Cherri Thomas [facility] CPT-4: 53635 12/10/2019 ([id number]) OFFICE/OUTPATIENT VISIT EST Diagnosis: Constipation[ICD10: K59.00] Diagnosis: Sacral decubitus ulcer[ICD10: L89.159] Cherri Thomas [facility] CPT-4: 25816 12/03/2019 ([id number]) OFFICE/OUTPATIENT VISIT EST 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] Diagnosis: Muscle weakness (generalized)[ICD10: M62.81] Cherri HOLGUIN DO [facility] CPT-4: 80469 10/01/2019 ([id number]) OFFICE/OUTPATIENT VISIT EST Diagnosis: Personal history of malignant neoplasm of brain[ICD10: Z85.841] Diagnosis: Muscle weakness (generalized)[ICD10: M62.81] Diagnosis: Hemiplegia, unspecified affecting left dominant side[ICD10: G81.92] Diagnosis: Contracture, 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] Cherri HOLGUIN [facility] CPT-4: 07263 06/25/2019 ([id number]) OFFICE/OUTPATIENT VISIT EST Diagnosis: Attention and concentration deficit[ICD10: R41.840] Diagnosis: Abnormal weight loss[ICD10: R63.4] Cherri HOLGUIN [employer] [facility] CPT-4: 09547 02/05/2019 ([id number]) OFFICE/OUTPATIENT VISIT EST Diagnosis: Attention and concentration deficit[ICD10: R41.840] Cherri HOLGUIN [facility] CPT-4: 02510 12/13/2018 ([id number]) OFFICE/OUTPATIENT VISIT EST Diagnosis: Laceration without foreign body of left upper arm, sequela[ICD10: S41.112S] Diagnosis: Other fatigue[ICD10: R53.83] Cherri HOLGUIN [facility] CPT-4: 75970 11/27/2018 ([id number]) OFFICE/OUTPATIENT VISIT EST Diagnosis: Gastro-esophageal reflux disease without esophagitis[ICD10: K21.9] Diagnosis: Contracture, 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] Diagnosis: Slow transit constipation[ICD10: K59.01] Cherri HOLGUIN DO [facility] CPT-4: 47536 09/25/2018 ([id number]) OFFICE/OUTPATIENT VISIT EST Diagnosis: Gastro-esophageal reflux disease without esophagitis[ICD10: K21.9] Diagnosis: Muscle weakness (generalized)[ICD10: M62.81] Maxine HOLGUIN DO [facility] CPT-4: 60728 06/22/2018 ([id number]) OFFICE/OUTPATIENT VISIT EST Diagnosis: Gastro-esophageal reflux disease without esophagitis[ICD10: K21.9] Cherri HOLGUIN DO [facility] CPT-4: 91916 04/06/2018 ([id number]) OFFICE/OUTPATIENT VISIT EST Diagnosis: Gastro-esophageal reflux disease without esophagitis[ICD10: K21.9] Maxine HOLGUIN DO [facility] CPT-4: 30231 03/06/2018 ([id number]) OFFICE/OUTPATIENT VISIT EST Diagnosis: 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] Diagnosis: Gastro-esophageal reflux disease without esophagitis[ICD10: K21.9] Diagnosis: Slow transit constipation[ICD10: K59.01] Diagnosis: Primary insomnia[ICD10: F51.01] Cherri HOLGUIN [employer] [facility] CPT-4: 95332 02/15/2018 ([id number]) OFFICE/OUTPATIENT VISIT EST Diagnosis: Muscle weakness (generalized)[ICD10: M62.81] Diagnosis: Gastro-esophageal reflux disease without esophagitis[ICD10: K21.9] Cherri HOLGUIN DO [employer] CPT-4: 86008 12/12/2017 ([id number]) OFFICE/OUTPATIENT VISIT EST Diagnosis: Nondisplaced fracture of medial malleolus of left tibia, subsequent encounter for closed fracture with delayed healing[ICD10: S82.55XG] Cherri HOLGUIN DO [facility] CPT-4: 81664 10/10/2017 OFFICE/OUTPATIENT VISIT EST Diagnosis: Acute upper respiratory infection, unspecified[ICD10: J06.9] Maxine HOLGUIN DO [facility] CPT-4: 00514 09/19/2017 ([id number]) OFFICE/OUTPATIENT VISIT EST Diagnosis: Muscle weakness (generalized)[ICD10: M62.81] Diagnosis: Other specified disorders of the skin and subcutaneous tissue[ICD10: L98.8] Cherri HOLGUIN DO [facility] CPT-4: 05963 08/04/2017 ([id number]) OFFICE/OUTPATIENT VISIT EST Diagnosis: Unspecified open wound of abdominal wall, left upper quadrant with penetration into peritoneal cavity, sequela[ICD10: S31.601S] Diagnosis: Muscle weakness (generalized)[ICD10: M62.81] Diagnosis: Personal history of malignant neoplasm of brain[ICD10: Z85.841] Cherri HOLGUIN DO [facility] CPT-4: 07472 07/12/2017 ([id number]) OFFICE/OUTPATIENT VISIT EST Diagnosis: Non-pressure chronic ulcer of skin of other sites with unspecified severity[ICD10: L98.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] Diagnosis: Tinea cruris[ICD10: B35.6] Cherri RUSHING [facility] CPT-4: 08048 05/30/2017 ([id number]) OFFICE/OUTPATIENT VISIT EST Diagnosis: Cellulitis of abdominal wall[ICD10: L03.311] Diagnosis: Cellulitis of chest wall[ICD10: L03.313] Cherri HOLGUIN DO [facility] CPT-4: 51879 05/02/2017 ([id number]) OFFICE/OUTPATIENT VISIT EST Diagnosis: Cellulitis of chest wall[ICD10: L03.313] Diagnosis: Muscle weakness (generalized)[ICD10: M62.81] Cherri HOLGUIN DO [facility] CPT-4: 25027 02/28/2017 ([id number]) OFFICE/OUTPATIENT VISIT EST Diagnosis: Cellulitis of abdominal wall[ICD10: L03.311] Cherri HOLGUIN DO [facility] CPT-4: 71265 12/06/2016 OFFICE/OUTPATIENT VISIT EST Diagnosis: Cutaneous abscess of abdominal wall[ICD10: L02.211] Diagnosis: Cellulitis of abdominal wall[ICD10: L03.311] Cherri HOLGUIN DO [facility] CPT-4: 71933 12/02/2016 ([id number]) OFFICE/OUTPATIENT VISIT EST Diagnosis: Cellulitis of abdominal wall[ICD10: L03.311] Diagnosis: Cutaneous abscess of abdominal wall[ICD10: L02.211] Cherri HOLGUIN DO [facility] CPT-4: 77098 12/01/2016 ([id number]) OFFICE/OUTPATIENT VISIT EST Diagnosis: Cutaneous abscess of abdominal wall[ICD10: L02.211] Diagnosis: Cellulitis of abdominal wall[ICD10: L03.311] Cherri HOLGUIN [facility] CPT-4: 63131 11/30/2016 ([id number]) OFFICE/OUTPATIENT VISIT EST Diagnosis: Muscle weakness (generalized)[ICD10: M62.81] Diagnosis: Slow transit constipation[ICD10: K59.01] Diagnosis: 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, 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] Cherri HOLGUIN [facility] CPT-4: 81951 10/26/2016 ([id number]) OFFICE/OUTPATIENT VISIT EST Diagnosis: Other seborrheic dermatitis[ICD10: L21.8] Cherri HOLGUIN [facility] CPT-4: 17079 09/13/2016 ([id number]) OFFICE/OUTPATIENT VISIT EST Diagnosis: Contracture, 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] Diagnosis: Nicotine dependence, cigarettes, uncomplicated[ICD10: F17.210] Diagnosis: Hemiplegia, unspecified affecting unspecified side[ICD10: G81.90] Diagnosis: Muscle weakness (generalized)[ICD10: M62.81] Cherriолег Pappasramuxuan HOLGUIN [facility] CPT-4: 26256 05/11/2016 ([id number]) OFFICE/OUTPATIENT VISIT EST Diagnosis: Muscle weakness (generalized)[ICD10: M62.81] Diagnosis: Abnormal weight loss[ICD10: R63.4] [facility]: 83697 12/23/2015 ([id number]) OFFICE/OUTPATIENT VISIT EST Diagnosis: Torticollis[ICD10: M43.6] Diagnosis: Cervicalgia[ICD10: M54.2] Diagnosis: Basal cell carcinoma of skin, unspecified[ICD10: C44.91] Cherri HOLGUIN [facility] CPT-4: 10090 09/23/2015 ([id number]) OFFICE/OUTPATIENT VISIT EST Diagnosis: Constipation[ICD9: 564.00] Diagnosis: MUSCLE WEAKNESS-GENERAL[ICD9: 728.87] Cherri HOLGUIN [facility] CPT-4: 50581 04/15/2015 ([id number]) OFFICE/OUTPATIENT VISIT EST Diagnosis: MALAISE AND FATIGUE[ICD9: 780.79] Diagnosis: 3RD DEGREE BURN[ICD9: 949.3] Cherri HOLGUIN DO [facility] CPT-4: 24615 01/14/2015 ([id number]) OFFICE/OUTPATIENT VISIT EST Diagnosis: Constipation[ICD9: 564.00] Diagnosis: MUSCLE WEAKNESS-GENERAL[ICD9: 728.87] Diagnosis: 3RD DEGREE BURN[ICD9: 949.3] Cherri HOLGUIN [facility] CPT-4: 92295 10/29/2014 ([id number]) OFFICE/OUTPATIENT VISIT EST Diagnosis: Weakness generalized[ICD9: 780.79] Diagnosis: 3RD DEGREE BURN[ICD9: 949.3] Cherri HOLGUIN [facility] CPT-4: 73685 08/20/2014 ([id number]) OFFICE/OUTPATIENT VISIT EST Diagnosis: 3RD DEGREE BURN[ICD9: 949.3] Diagnosis: DYSPHAGIA NEC[ICD9: 787.29] Cherri Pappasramuxuan CHERRI EarlBelkis Jaquan [facility] CPT-4: 39798 06/04/2014 ([id number]) OFFICE/OUTPATIENT VISIT EST Diagnosis: 3RD DEGREE BURN[ICD9: 949.3] Diagnosis: Complication of skin graft[ICD9: 996.52] Diagnosis: TOBACCO USE DISORDER[ICD9: 305.1] Cherri Mianrl Franklin [employer] [facility] CPT-4: 98109 05/06/2014 ([id number]) OFFICE/OUTPATIENT VISIT EST Diagnosis: CELLULITIS[ICD9: 682.9] Cherri Mianrl MACHUCA [employer] LAWSON BRUNSON [facility] CPT-4: 38632 08/07/2013 ([id number]) OFFICE/OUTPATIENT VISIT EST Diagnosis: MUSCLE WEAKNESS-GENERAL[ICD9: 728.87] Diagnosis: MALAISE AND FATIGUE[ICD9: 780.79] Diagnosis: ABNORMALITY OF GAIT[ICD9: 781.2] Cherri HOLGUIN [employer] CPT-4: 93356 05/23/2013 ([id number]) OFFICE/OUTPATIENT VISIT EST Diagnosis: MALAISE AND FATIGUE[ICD9: 780.79] Diagnosis: MUSCLE WEAKNESS-GENERAL[ICD9: 728.87] Diagnosis: HEMIPLEGIANOS SIDE NOS[ICD9: 342.90] Diagnosis: 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] Cherri HOLGUIN [employer] CPT-4: 69078 04/25/2013 ([id number]) OFFICE/OUTPATIENT VISIT EST Diagnosis: MUSCLE WEAKNESS-GENERAL[ICD9: 728.87] Diagnosis: ABNORMALITY OF GAIT[ICD9: 781.2] Diagnosis: MALAISE AND FATIGUE[ICD9: 780.79] Cherri BYERS Noemi Martha HOLGUIN [employer] CPT-4: 39993 01/22/2013 OFFICE/OUTPATIENT VISIT EST Diagnosis: MALAISE AND FATIGUE[ICD9: 780.79] Diagnosis: MUSCLE WEAKNESS-GENERAL[ICD9: 728.87] Diagnosis: HEMIPLEGIANOS SIDE NOS[ICD9: 342.90] Diagnosis: ABNORMALITY OF GAIT[ICD9: 781.2] Cherri HOLGUIN [employer] [facility] CPT-4: 01601 10/18/2012 OFFICE/OUTPATIENT VISIT EST Diagnosis: ABNORMALITY OF GAIT[ICD9: 781.2] Diagnosis: MALAISE AND FATIGUE[ICD9: 780.79] Diagnosis: MUSCLE WEAKNESS-GENERAL[ICD9: 728.87] Cherri Mianramuxuan ALLEN RYLIE Martha HOLGUIN [employer] CPT-4: 36722 09/25/2012 OFFICE/OUTPATIENT VISIT EST Diagnosis: CERVICALGIA[ICD9: 723.1] Diagnosis: ABNORMALITY OF GAIT[ICD9: 781.2] Diagnosis: MUSCLE WEAKNESS-GENERAL[ICD9: 728.87] Cherri Mianramuxuan ALLEN [employer] EZIO [employer] [facility] CPT-4: 89702 08/24/2012 ([id number]) OFFICE/OUTPATIENT VISIT EST Diagnosis: URINARY TRACT INFECTION[ICD9: 599.0] Diagnosis: Altered mental state[ICD9: 780.97] Diagnosis: MUSCLE WEAKNESS-GENERAL[ICD9: 728.87] Diagnosis: HEMIPLEGIANOS SIDE NOS[ICD9: 342.90] Diagnosis: Cervicalgia[ICD9: 723.1] Cherri CARIAS [facility] CPT-4: 57973 07/27/2012 OFFICE/OUTPATIENT VISIT EST Diagnosis: URINARY TRACT INFECTION[ICD9: 599.0] Diagnosis: Weakness generalized[ICD9: 780.79] Diagnosis: FEBRILE ILLNESS[ICD9: 780.60] Diagnosis: Vision disturbance[ICD9: 368.9] Tasneem Esquivel CHERRI HOLGUIN [facility] CPT-4: 00942 07/05/2012 OFFICE/OUTPATIENT VISIT EST Diagnosis: CONJUNCTIVITIS NOS[ICD9: 372.30] Diagnosis: MUSCLE WEAKNESS-GENERAL[ICD9: 728.87] Diagnosis: HEMIPLEGIANOS SIDE NOS[ICD9: 342.90] Diagnosis: ABNORMALITY OF GAIT[ICD9: 781.2] [facility] 02379 05/29/2012 ([id number]) OFFICE/OUTPATIENT VISIT EST Diagnosis: MUSCLE WEAKNESS-GENERAL[ICD9: 728.87] Diagnosis: HEMIPLEGIANOS SIDE NOS[ICD9: 342.90] Diagnosis: ABNORMALITY OF GAIT[ICD9: 781.2] Diagnosis: DYSPEPSIA[ICD9: 536.8] Diagnosis: GERD[ICD9: 530.81] [facility] 35437 02/02/2012 ([id number]) OFFICE/OUTPATIENT VISIT EST Diagnosis: MUSCLE WEAKNESS-GENERAL[ICD9: 728.87] Diagnosis: ABNORMALITY OF GAIT[ICD9: 781.2] Diagnosis: GERD[ICD9: 530.81] Cherri HOLGUIN [facility] CPT-4: 22546 11/03/2011 OFFICE/OUTPATIENT VISIT EST Diagnosis: MUSCLE WEAKNESS-GENERAL[ICD9: 728.87] Diagnosis: ABNORMALITY OF GAIT[ICD9: 781.2] Diagnosis: VOMITING ALONE[ICD9: 787.03] Diagnosis: GERD[ICD9: 530.81] Cherri PAPPASNDER DO [facility] CPT-4: 49845 08/25/2011 OFFICE/OUTPATIENT VISIT EST Diagnosis: CONJUNCTIVITIS NOS[ICD9: 372.30] [facility] CPT-4: 72134 05/27/2011 OFFICE/OUTPATIENT VISIT EST Diagnosis: MUSCLE WEAKNESS-GENERAL[ICD9: 728.87] Diagnosis: ABNORMALITY OF GAIT[ICD9: 781.2] Cherri PAPPASNDER DO [facility] CPT-4: 70998 04/15/2011 OFFICE/OUTPATIENT VISIT EST Diagnosis: MALAISE AND FATIGUE[ICD9: 780.79] Diagnosis: MUSCLE WEAKNESS-GENERAL[ICD9: 728.87] Diagnosis: DEPRESSIVE DISORDER NEC[ICD9: 311] Diagnosis: ABNORMALITY OF GAIT[ICD9: 781.2] Cherri MACHUCA SBelkis ORENDER DO [facility] CPT-4: 60709 03/22/2011 OFFICE/OUTPATIENT VISIT EST Cherri Ezio MACHUCA SBelkis ORE NDER DO [facility] CPT- 4: 06594 02/22/2011 ([id number]) OFFICE/OUTPATIENT VISIT EST Cherriолег MELO [facility] CPT-4: 27762 01/26/2011 ([id number]) OFFICE/OUTPATIENT VISIT, EST Cherri Mianramuxuan [facility] CPT-4: 09845 06/15/2010 ([id number]) OFFICE/OUTPATIENT VISIT, EST Cherri Pathakxuan [facility] CPT-4: 77910 05/04/2010 ([id number]) OFFICE/OUTPATIENT VISIT, EST Cherri Pathakxuan [facility] CPT-4: 24603 03/03/2010 ([id number]) OFFICE/OUTPATIENT VISIT, EST Cherri Mianramuxuan [facility] CPT-4: 57506 10/20/2009 Plan of Care Planned Activity Notes Codes Status Date Visit Diagnosis Plan: Hemiplegia, unspecified affectin g left dominant side Discussion: Shaneka.me video visit done with nurse at [facility] Doing well with new Wheel Chair Follow Up: 2 months ICD-9 : 342.91 ICD-10 : G81.92 02/20/2020 Visit Diagnosis Plan: Gastro-esophageal reflux disease without esophagitis Discussion: Stable ICD-9 : 530.81 ICD-10 : K21.9 02/20/2020 Visit Diagnosis Plan: Left arm cellulitis Discussion: Shaneka. video visit done with nurse at [facility] Start Keflex Continue with clear tegaderm dressing and brian wrap and ice Notify if any worsening ICD-9 : 682.3 ICD-10 : L03.114 12/10/2019 Appointment: Cherri Holguintel: [address] [place] [address] 12/10/2019 Visit Diagnosis Plan: Sacral decubitus ulcer Discussio n: Wound Care seeing this week Follow Up: 2 months ICD-9 : 707.03 ICD-10 : L89.159 12/03/2019 Visit Diagnosis Plan: Constipation Discussion: Shaneka. 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 FOLLOW UP 06/25/2019 Visit Diagnosis Plan: Abnormal weight loss Discussion: Patient agrees to try protein shake daily and facility will send me weekly weight checks the next month Will also do ST for swallow eval ICD-9 : 783.21 ICD-10 : R63.4 02/05/2019 Visit Diagnosis Plan: Attention and concentration defi cit Discussion: Discussed that patient has had weight loss with all stimulants that has tried in past and is currently a poor eater and having ongoing issues with proper amount of food consumption as well as ongoing weight loss ICD-9 : 799.51 ICD-10 : R41.840 02/05/2019 Appointment: Cherri Holguintel: [address] [place] [id number] [place] Confirmed with Nara Hankins 02/02 @ 11:07 am FOL LOW UP 02/05/2019 Appointment: Cherri Holguintel: [address] [place], [place] [id number] [place] NO SHOW 01/24/2019 Visit Diagnosis Plan: Attention and concentration defi cit Discussion: Trial of strattera 10mg daily for 1 week then 25mg daily Recheck 6 weeks Stimulants have caused weight loss in past as patient is also poor, picky eater so with the stimulants her appetite worsens even more ICD-9 : 799.51 ICD-10 : R41.840 12/13/2018 Appointment: Cherri Holguintel: [address] [place] [id number] [place] confirmed with Morena FOLLOW UP 12/13/2018 Visit Diagnosis Plan: Laceration without foreign body of left upper arm, sequela Discussion: Cover with keflex for possib le cellulitis Non stick telfa with kerlix then coband applied Recheck 2 weeks ICD-9 : 906.1 ICD-10 : S41.112S 11/27/2018 Visit Diagnosis Plan: Other fatigue Discussion: DC ami triptylene Recheck 2 weeks ICD-9 : 780.79 ICD-10 : R53.83 11/27/2018 Appointment: Cherri Holguintel: [facility]6 [facility] [place] confirmed with Karlee FOLLOW UP 11/27/2018 Visit Diagnosis Plan: Gastro-esophageal reflux disease without esophagitis Discussion: Stable on current meds ICD-9 : 530.81 ICD-10 : K21.9 09/25/2018 Visit Diagnosis Plan: Contracture, left hand Discussio n: Left arm in anh on wheelchair Follow Up: 2 months ICD-9 : 718.44 ICD-10 : M24.542 09/25/2018 Visit Diagnosis Plan: Slow transit constipation Discus benito: Scheduled for colonoscopy on Tuesday ICD-9 : 564.01 ICD-10 : K59.01 09/25/2018 Appointment: Cherri Holguin WPtel: [facility]9 [facility] [place] FOLLOW UP 09/25/2018 Visit Diagnosis Plan: Disorder of the skin and subcuta neous tissue, unspecified Discussion: referral to be sent to dr. hsieh for change in lesion on scalp. ICD-9 : 709.9 ICD-10 : L98.9 08/03/2018 Visit Diagnosis Plan: Mood disorder due to known physiological condition with depressive features Discussion: stable on current dose of cy mbalta. continue with current medications. ICD-9 : 311 ICD-10 : F06.31 08/03/2018 Visit Diagnosis Plan: Encounter for gene [facility] adult medical examination with abnormal findings Discussion: see other plans. follow up i n 3 months. ICD-9 : V70.0 ICD-10 : Z00.01 08/03/2018 Visit Diagnosis Plan: Encounter for screening for maximino gnant neoplasm of colon Discussion: will obtain records for colonoscopy. if needing updated scope, will refer to surgeon. ICD-9 : V76.51 ICD-10 : Z12.11 08/03/2018 Visit Diagnosis Plan: Encounter for othe r screening for malignant neoplasm of breast Discussion: mammogram order written to thierry stacy. ICD-9 : V76.10 ICD-10 : Z12.39 08/03/2018 Appointment: Maxine Glasgow [address] Annual Well Visit 08/03/2018 Visit Diagnosis Plan: Muscle weakness (generalized) Di scussion: stable. follow up 3 months. patient is due for routine blood work in july and order was written to be obtained in july. ICD-9 : 780.79 ICD-10 : M62.81 06/22/2018 Visit Diagnosis Plan: Gastro-esophageal reflux disease without esophagitis Discussion: stable on current medications, continue with current medications. follow up 3 months. ICD-9 : 530.81 ICD-10 : K21.9 06/22/2018 [facility]ment[facility] [facility] 06/22/2018 Visit Diagnosis Plan: Gastro-esophageal reflux disease without esophagitis Discussion: Continue aciphex at 20m po daily Recheck 2mos ICD-9 : 530.81 ICD-10 : K21.9 04/06/2018 Appointment: [facility] [phone] [facility] [facility] 04/06/2018 Patient Education: Patient Medication Summary Completed 04/06/2018 Appointment: Cher[facility] [address] [facility] [place] RESCHEDULED 03/07/2018 Visit Diagnosis Plan: Gastro-esophageal reflux disease without esophagitis Discussion: patient had aciphex and prevacid on med list. order written out on patient's list to only give the aciphex as prescribed and not both. follow up in one month to assess medication efficacy and constipation. ICD-9 : 530.81 ICD-10 : K21.9 03/06/2018 Appointment: [facility] [address] [facility] [id number] FOLLOW UP 03/06/2018 Patient Education: Patient Medication Summary Completed 03/06/2018 Visit Diagnosis Plan: Mood disorder due to known physiological condition with depressive features Discussion: Affect seems improved with c ymbalta ICD-9 : 311 ICD-10 : F06.31 02/15/2018 Visit Diagnosis Plan: Gastro-esophageal reflux disease without esophagitis Discussion: Increase prevacid to 30mg po q HS ICD-9 : 530.81 ICD-10 : K21.9 02/15/2018 Visit Diagnosis Plan: Slow transit constipation Discus benito: DC miralax Increase senokot-S to 2 po q HS Follow Up: 2 months ICD-9 : 564.01 ICD-10 : K59.01 02/15/2018 Visit Diagnosis Plan: Primary insomnia Discussion: Add elavil 10mg po q HS Sister to let us know in 2 weeks if helping ICD-9 : 780.52 ICD-10 : F51.01 02/15/2018 Appointment: Cherri Holguin WPtel: [address] [place], [place] [id number] [place] FOLLOW UP 02/15/2018 Patient Education: Patient Medication Summary Completed 02/15/2018 Appointment: Cherri Holguin WPtel: [address] [place], [place] [phone] [facility] transportation called, stating that the patient is still eating lunch, and will not be able to make her appointment.She is rescheduled for Tuesday ~sp NO SHOW 02/13/2018 Visit Diagnosis Plan: Gastro-esophageal reflux disease without esophagitis Discussion: Stable as long as takes prevacid Follow Up: 2 months ICD-9 : 530.81 ICD-10 : K21.9 12/12/2017 Visit Diagnosis Plan: Muscle weakness (generalized) Di scussion: Patient asked for PT but PT has not been beneficial in past as the patient makes no progress so the therapies are DCed ICD-9 : 728.87 ICD-10 : M62.81 12/12/2017 Appointment: Cherri Holguin WPtel: [address] [place], [place] [id number] [place] FOLLOW UP 12/12/2017 Patient Education: Patient Medication Summary Completed 12/12/2017 Visit Diagnosis Plan: Nondisplaced fract ure of medial malleolus of left tibia, subsequent encounter for closed fracture with delayed healing Discussion: Add miacalcin nasal spray for next 2mos Fwup with ortho Follow Up: 2 months ICD-9 : V54.16 ICD-10 : S82.55XG 10/10/2017 Appointment: Cherri Holguin WPtel: [facility] [place] FOLLOW UP 10/10/2017 Patient Education: Patient Medication Summary Completed 10/10/2017 Appointment: Cherri Holguin WPtel: [address] [place] [address] [place] RESCHEDULED 10/04/2017 Referral: Alvarado Mercado WPtel: [address] [address] [place] Referral Initiated 10/04/2017 Visit Diagnosis Plan: Acute upper respiratory infectio n, unspecified Discussion: continue with tespavel perlmerle as needed. increase fluids. notify if worsening symptoms including shortness of breath or fever. call or rtc later this week if no improvement. instructed patient to perform deep breathing exercises at home. ICD-9 : 465.9 ICD-10 : J06.9 09/19/2017 Appointment: Maxine Glasgow [address] [place] [address] ACUTE ILLNESS 09/19/2017 Patient Education: Patient Medication Summary Completed 09/19/2017 Appointment: Cherri Holguin WPtel: [address] [place], [place] [id number] [place] CANCELED 08/16/2017 Visit Diagnosis Plan: Muscle weakness (generalized) Di scussion: Continue adderall at low dose and monitor weight/appetite Follow Up: 2 months ICD-9 : 728.87 ICD-10 : M62.81 08/04/2017 Visit Diagnosis Plan: Other specified di sorders of the skin and subcutaneous tissue Discussion: Should heal on own per surge ry and wound care ICD-9 : 686.9 ICD-10 : L98.8 08/04/2017 Appointment: Cherri Holguin WPtel: [address] [place], [place] [phone] [place] FOLLOW UP 08/04/2017 Patient Education: Patient Medication Summary Completed 08/04/2017 Visit Diagnosis Plan: Muscle weakness (generalized) Di scussion: Retry low dose adderall Follow Up: 1 months ICD-9 : 728.87 ICD-10 : M62.81 07/12/2017 Visit Diagnosis Plan: Unspecified open w ound of abdominal wall, left upper quadrant with penetration into peritoneal cavity, sequela Discussion: Getting scan tomorrow to look for fistula ICD-9 : 906.0 ICD-10 : S31.601S 07/12/2017 Visit Diagnosis Plan: Personal history of malignant ne oplasm of brain Discussion: Hospice consult ICD-9 : V10.85 ICD-10 : Z85.841 07/12/2017 Appointment: Cherri Holguin WPtel: [address] [place], [place] [id number] Follow Up 07/12/2017 Patient Education: Patient Medication Summary Completed 07/12/2017 Visit Diagnosis Plan: Tinea cruris Discussion: Difluca n for 1 week ICD-9 : 110.3 ICD-10 : B35.6 05/30/2017 Visit Diagnosis Plan: 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 Valdes for further debridement Follow Up: 2 months ICD-9 : 707.8 ICD-10 : L98.499 05/30/2017 Appointment: Cherri Holguin WPtel: [address] [place] [address] FOLLOW UP 05/30/2017 Patient Education: Patient Medication Summary Completed 05/30/2017 Visit Diagnosis Plan: Cellulitis of abdominal wall Dis cussion: Finish keflex Referral to wound care ICD-9 : 682.2 ICD-10 : L03.311 05/02/2017 Appointment: Cherri Holguin WPtel: [address] [place], [place] [phone] FOLLOW UP 05/02/2017 Patient Education: Patient Medication Summary Completed 05/02/2017 Referral: Remigio Valdes WPtel: [address] [place], [place] [phone] [place] Referral Initiated 04/05/2017 Visit Diagnosis Plan: Cellulitis of chest wall Discuss ion: Keflex x1 week Continue daily dressing changes ICD-9 : 682.2 ICD-10 : L03.313 02/28/2017 Visit Diagnosis Plan: Muscle weakness (generalized) Di scussion: Stable Follow Up: 2 months ICD-9 : 728.87 ICD-10 : M62.81 02/28/2017 Appointment: Cherri Holguin WPtel: [facility] 02/24 confirmed~sl FOLLOW UP 02/28/2017 Patient Education: Patient Medication Summary Completed 02/28/2017 Visit Diagnosis Plan: Cellulitis of abdominal wall Dis cussion: Healing and improving so will finish all of clindamycin and monitor wounds for any worsening or recurrence ICD-9 : 682.2 ICD-10 : L03.311 12/06/2016 Appointment: Cherri Holguin WPtel: [phone] [facility] WORK IN 12/06/2016 Patient Education: Patient Medication Summary Completed 12/06/2016 Visit Diagnosis Plan: Cutaneous abscess of abdominal w all Discussion: Continue clindamycin and dressing changes To ER this weekend if worsens Fwup with me in 4 days for recheck ICD-9 : 682.2 ICD-10 : L02.211 12/02/2016 Appointment: Cherri Holguin WPtel: [phone] [facility] FOLLOW UP 12/02/2016 Patient Education: Patient Medication Summary Completed 12/02/2016 Visit Diagnosis Plan: Cutaneous abscess of abdominal w all Discussion: Continue clindamycin Follow Up: 1 days ICD-9 : 682.2 ICD-10 : L02.211 12/01/2016 Visit Diagnosis Plan: Cellulitis of abdominal wall Dis cussion: Continue clindamycin TID f/u in 1 day for abscess under rt breast and LUQ consider hospital admit Follow Up: 1 days ICD-9 : 682.2 ICD-10 : L03.311 12/01/2016 Appointment: Cherri Holguin WPtel: [phone] [facility] [place] WORK IN 12/01/2016 Patient Education: Patient Medication Summary Completed 12/01/2016 Visit Diagnosis Plan: Cutaneous abscess of abdominal w all Discussion: Copious amounts of pus expressed until bloody discharge Start clindamycin Recheck tomorrow Erythema outline marked Follow Up: 1 days ICD-9 : 682.2 ICD-10 : L02.211 11/30/2016 Appointment: Cherri Holguin WPtel: [address] [place], [place] [phone] 11/29 confirmed`sl FOLLOW UP 11/30/2016 Patient Education: Patient Medication Summary Completed 11/30/2016 Appointment: Cherri Holguin WPtel: [address] [place], [place] [phone] 11/10 scalp looks ok will discuss at 11/30 appointment~sl RESCHEDULED 11/11/2016 Visit Diagnosis Plan: Slow transit constipation Discus benito: Add colace 100mg po BID and increase water intake ICD-9 : 564.01 ICD-10 : K59.01 10/26/2016 Visit Diagnosis Plan: Muscle weakness (generalized) Di scussion: Start PT and will also assess for new wheelchair due to truncal and extremity weakness Follow Up: 1 months ICD-9 : 728.87 ICD-10 : M62.81 10/26/2016 Visit Diagnosis Plan: 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, sequela Discussion: Patient has CT scan of brain tomorrow and fwup with [facility] on 11/02/16 ICD-9 : 909.3 ICD-10 : T85.09XS 10/26/2016 Appointment: Cherri Holguin WPtel: [address] [place], [place] [phone] ACUTE ILLNESS 10/26/2016 Patient Education: Patient Medication Summary Completed 10/26/2016 Patient Education: Patient Medication Summary Completed 10/21/2016 Care Plan: CT HEAD/BRAIN W/O DYE LOINC : 56910-0 Pending 10/21/2016 Visit Diagnosis Plan: Other seborrheic dermatitis Disc ussion: Topical ketoconazole shampoo alternating with selsun blue Follow Up: 2 months ICD-9 : 706.3 ICD-10 : L21.8 09/13/2016 Appointment: Cherri Holguin WPtel: [address] [place], [place] [phone] 09/09 confirm`sl FOLLOW UP 09/13/2016 Patient Education: Patient Medication Summary Completed 09/13/2016 Appointment: Cherri Holguin WPtel: [address] [place], [place] [phone] [place] CANCELED 07/13/2016 Visit Plan: Low-dose CT scan-45 PPD of C hest Check hemoccult Discussed updated CT of head to recheck meningioma Zostavax vaccine Will obtain last colonoscopy results Update lab 07/12/2016 Appointment: Cherri Holguin WPtel: [address] [place], [place] [phone] 07/08 confirmed~sl Annual Well Visit 07/12/2016 Patient Education: Patient Medication Summary Completed 07/12/2016 Visit Plan: Gets teeth extracted next mo nth then getting fitted for dentures so some of poor appetite is due to inability to eat certain things Continue current meds Defers flu shot 05/11/2016 Appointment: Cherri Holguin WPtel: [address] [place], [place] [phone] 05/10 confirmed~sl FOLLOW UP 05/11/2016 Patient Education: Patient Medication Summary Completed 05/11/2016 Visit Plan: Discussed nutrition and poss ible shakes as supplement until gets teeth completely pulled and fitted for full dentures Continue current meds Did have right scalp lesion removed 12/23/2015 Appointment: Cherri Holguin WPtel: [address] [place], [place] [phone] 12/21 confirmed-sp FOLLOW UP 12/23/2015 Patient Education: Patient Medication Summary Completed 12/23/2015 Referral: Tabitha Messer WPtel: [facility] [address] [facility] [place] Spoke with Kayli at [facility] and gave her appt information Initiated 10/07/2015 Visit Plan: Start PT for ROM of neck Dis cussed milkshake in place of meal if does not eat at least 20% of meal--patient states she wants to lose weight and does not like the food served there See dermatology for removal of scalp lesion 09/23/2015 Appointment: Cherri Holguin WPtel: [address] [place], [place] [phone] 09/22/15 appt confirmed with Amber at [facility] FOLLOW UP 09/23/2015 Patient Education: Patient Medication Summary Completed 09/23/2015 Visit Plan: Stop miralax and senokot-s S tart dulcolax daily Patient asking for PT and OT again but admits they don't really help/she doesn't gain much from them 04/15/2015 Appointment: Cherri Holguin WPtel: [address] [place], [place] [phone] 04/11 confirmed with [facility] FOLLOW UP 04/15/2015 Patient Education: Patient Medication Summary Completed 04/15/2015 Visit Plan: Check CBC, CMP, TSH, free T4 , Vit D Continue current meds 01/14/2015 Appointment: Cherri Holguin WPtel: [address] [place], [place] [phone] ACUTE ILLNESS 01/14/2015 Patient Education: Patient Medication Summary Completed 01/14/2015 Visit Plan: Change to Senokot-S 2 po BID Add miralax Has been released by burn center for now 10/29/2014 Appointment: Cherri Holguin WPtel: [address] [place], [place] [phone] 10/28 with Madiha FOLLOW UP 10/29/2014 Patient Education: Patient Medication Summary Completed 10/29/2014 Visit Plan: Patient is wheelchair bound now Continue current meds Patient following with [facility] end of 08/20/2014 Appointment: Cherri Holguin WPtel: [address] [place] [address] MLP rescheduled due to cold weather 08/19 message with Madiha at [facility] FOLLOW U P 08/20/2014 Patient Education: Patient Medication Summary Completed 08/20/2014 Visit Plan: Patient is eating better--10 0% of meals and wants feeding tube out but waiting on swallow eval Following with burn center and doing dressing changes to left chest every 3 days Refuses flu and pneumonia shots Fwup 4mos if goes to [place] or 1mo if stays in [place] 06/04/2014 Appointment: Cherri Holguin WPtel: [address] [place], [place] [phone] FOLLOW UP 06/04/2014 Patient Education: Patient Medication Summary Completed 06/04/2014 Visit Plan: Patient sees burn center nex t week Explained importance of taking nutren routinely as needs nutrition Increase prilosec to 20mg po BID Smoking Cessation 05/06/2014 Appointment: Cherri Holguin WPtel: [address] [place], [place] [phone] 05/03 vm on patient phone 05/03 message with Maria L at [facility] Follow Up 05/06/2014 Patient Education: Patient Medication Summary Completed 05/06/2014 Visit Plan: Finish abx Brian wrap to left LE and elevate 08/07/2013 Appointment: Cherri Holguin WPtel: [address] [place], [place] [phone] Urgent/Quick Care Follow Up 07/10 Patient Education: Patient Medication Summary Completed 08/07/2013 Appointment: Cherri Holguin WPtel: [address] [place], [place] [phone] 07/18 appointment confirmed with patient 07/19 NO SHOW FOLLOW UP 07/19/2013 Visit Plan: Continue current meds Contin ue PT 05/23/2013 Appointment: Cherri Holguin WPtel: [address] [place], [place] [phone] 05/22 vm...appt confirmed FOLLOW UP 2012 Patient Education: Patient Medication Summary Completed 05/23/2013 Visit Plan: Long discussion about need f or 24hr care Pt wants to go home 04/25/2013 Appointment: Cherri Holguin WPtel: [address] [place], [place] [phone] Appt confirmed with Augusto at [facility] Follow Up 04/25/2013 Patient Education: Patient Medication Summary Completed 04/25/2013 Appointment: Cherri Holguin WPtel: [address] [place], [place] [phone] 04/20 message left at [facility] FOLLOW UP 04/23/2013 Visit Plan: Continue current meds 01/22/2013 Appointment: Cherri Holguin WPtel: [address] [place], [place] [phone] 01/22 vm left FOLLOW UP 01/22/2013 Patient Education: Patient Medication Summary Completed 01/22/2013 Appointment: Cherri Holguin WPtel: [address] [place], [place] [phone] 11/20 left message...patient called in a t 10:00am and said she was unable to get to her car. She rescheduled for 11/27 11am 11/24 left message 11/29 called to confirm, patient cancell ed due to no ride from [place]. patient will [facility] and see when they can bring her and then call us to schedule FOLLOW UP 11/30/2012 Visit Plan: Going to go home at the end of week with caregiver Continue current meds 10/18/2012 Appointment: Cherri Holguin WPtel: [address] [place], [place] [phone] 10/17 appt confirmed with Reyna FOLLOW UP 10/18/2012 Patient Education: Patient Medication Summary Completed 10/18/2012 Visit Plan: Continue and finish PT Sultana nue current meds Fwup October 19 or --pts 100 days is up October 21 09/25/2012 Appointment: Cherri Holguintel: [address] [place], [place] [phone] [place] worked in since care home just droppe d her off. She was on shedule at one point but showed it was cancelled WORK IN Appointment: Cherri Holguin WPtel: [address] [place], [place] [phone] 07/17 Cancelled 09/25 Appt - Patient has appointments on 07/08 & 07/27 FOLLOW UP 09/25/2012 Patient Education: Patient Medication Summary Completed 09/25/2012 Visit Plan: Continue current meds Pt wan ts to go home when her 100 days are up 08/24/2012 Appointment: Cherri Holguin WPtel: [address] [place], [place] [phone] FOLLOW UP 08/24/2012 Patient Education: Patient Medication Summary Completed 08/24/2012 Visit Plan: DC tramadol Repeat UA and ch edu UDS Start PT for neck Discussed neurology eval, but pt has been to several in past and even [facility] 07/27/2012 Appointment: Cherri Holguin WPtel: [address] [place], [place] [phone] FOLLOW UP 07/27/2012 Patient Education: Patient Medication Summary Completed 07/27/2012 Appointment: Cherri Holguin WPtel: [address] [place], [place] [phone] 07/17 - left message..07/17 left message with Antonella at [facility] pt has appt tomorrow and on I think the 07/18 appt was scheduled prior to hospitalization. 07/18 no showed. just entered care home so no show is forgiven FOLLOW UP 07/18/2012 Appointment: Tasneem Esquivel WPtel: [address] [place], [place] [phone] ACUTE ILLNESS 07/05/2012 Patient Education: Patient Medication Summary Completed 07/05/2012 Appointment: Cherri Holguin WPtel: [address] [place], [place] [phone] FOLLOW UP 05/29/2012 Patient Education: Patient Medication Summary Completed 05/29/2012 Appointment: Cherri Holguin WPtel: [address] [place], [place] [phone] [place] FOLLOW UP 02/02/2012 Patient Education: Patient Medication Summary Completed 02/02/2012 Visit Plan: Continue current meds Check CBC, CMP, TSH, Free T4, B12 11/03/2011 Appointment: Cherri Holguin WPtel: [address] [place] [address] FOLLOW UP 11/03/2011 Patient Education: Patient Medication Summary Completed 11/03/2011 Visit Plan: Adderall refilled Continue c urrent meds 08/25/2011 Appointment: Cherri Holguin WPtel: [address] [place] [address] FOLLOW UP 08/25/2011 Patient Education: Patient Medication Summary Completed 08/25/2011 Appointment: Cherri Holguin WPtel: [address] [place] [address] Appointment was confirmed. FOLLOW UP 08/16 Visit Plan: Esther is eye doctor. Will u se eye drop.(Cipro as she claims allergy (nausea). Pt. is accompanied by "grounds keepers" from [facility]. Written instructions given for pt. to be seen in follow up by Esther. Written RX also given to pt. for cipro eye drops. Pt. is instructed that the RX has been electronically sent to [facility]. 05/27/2011 Appointment: Tasneem Esquivel WPtel: [address] [place] [address] ACUTE ILLNESS 05/27/2011 Patient Education: Patient Medication Summary Completed 05/27/2011 Visit Plan: Continue increased dose of A dderall 04/15/2011 Appointment: Cherri Holguin WPtel: [address] [place] [address] [place] FOLLOW UP 04/15/2011 Patient Education: Patient Medication Summary Completed 04/15/2011 Appointment: Cherri Holguin WPtel: [address] [place] [address] FOLLOW UP 03/22/2011 Patient Education: Patient Medication Summary Completed 03/22/2011 Appointment: Cherri Holguin WPtel: [address] [place], [place] [phone] [place] FOLLOW UP 02/25/2011 Visit Plan: Trial of Wellbutrin XL 150mg q AM 02/22/2011 Appointment: Cherri Holguin WPtel: [address] [place], [place] [phone] FOLLOW UP 02/22/2011 Patient Education: Patient Medication Summary Completed 02/22/2011 Visit Plan: Continue PT Add Cymbalta 30m g daily 01/26/2011 Appointment: Cherri Holguin WPtel: [address] [place] [address] FOLLOW UP 01/26/2011 Patient Education: Patient Medication Summary Completed 01/26/2011 Visit Plan: Cont current meds and PT Exa m for Power chair completed Adderall rx refilled 06/15/2010 Appointment: Cherri Holguin WPtel: [address] [place] [address] ESTABLISHED PATIENT 06/15/2010 Patient Education: Patient Medication Summary Completed 06/15/2010 Visit Plan: To rehab today for PT/OT--I will follow on rehab unit 05/04/2010 Appointment: Cherri Holguin WPtel: [address] [place], [place] [phone] FOLLOW UP 05/04/2010 Patient Education: Patient Medication Summary Completed 05/04/2010 Visit Plan: Cont PT Cont Forteo Long dis cussion about living home--will discuss with PT when finishes this session 03/03/2010 Appointment: Cherri Holguin WPtel: [address] [place] [address] FOLLOW UP 03/03/2010 Patient Education: Patient Medication Summary Completed 03/03/2010 Visit Plan: EGD by Dr. Dang Pt agrees to restart Forteo 10/20/2009 Appointment: Cherri Holguin WPtel: [address] [place], [place] [phone] FOLLOW UP 10/20/2009 Patient Education: Patient Medication Summary Completed 10/20/2009 Referral: Antonio Gandhi WPtel: [address] [id number] [place] Referral Initiated Instructions Comment . Low-dose CT scan-45 PPD of Chest Check hemoccult Discussed updated CT of head to recheck meningioma Zostavax vaccine Will obtain last colonoscopy results Update lab . Gets teeth extracted next month then g etting fitted for dentures so some of poor appetite is due to inability to eat certain things Continue current meds Defers flu shot . Discussed nutrition and possible shake s as supplement until gets teeth completely pulled and fitted for full dentures Continue current meds Did have right scalp lesion removed . Start PT for ROM of neck Discussed milkshake in place of meal if does not eat at least 20% of meal--patient states she wants to lose weight and does not like the food served there See dermatology for removal of scalp lesion . Stop miralax and senokot-s Start dulcolax daily Patient asking for PT and OT again but admits they don't really help/she doesn't gain much from them . Check CBC, CMP, TSH, free T4, Vit D Continue current meds . Change to Senokot-S 2 po BID Add miralax Has been released by burn center for now . Patient is wheelchair bound now Continue current meds Patient [facility] end of October . Patient is eating better--100% of meal s and wants feeding tube out but waiting on swallow eval Following with burn center and doing dressing changes to left chest every 3 days Refuses flu and pneumonia shots Fwup 4mos if goes to [place] or 1mo if stays in [place] . Patient sees burn center next week Explained importance of taking nutren routinely as needs nutrition Increase prilosec to 20mg po BID Smoking Cessation . Finish abx Brian wrap to left LE and elevate . Continue current meds Continue PT . Long discussion about need for 24hr ca re Pt wants to go home . Continue current meds . Going to go home at the end of week wi th caregiver Continue current meds . Continue and finish PT Continue current meds Fwup October 19 or --pts 100 days is up October 21 . Continue current meds Pt wants to go home when her 100 days are up . DC tramadol Repeat UA and check UDS Start PT for neck Discussed neurology eval, but pt has been to several in past and even [facility] . Continue current meds Check CBC, CMP, TSH, Free T4, B12 . Adderall refilled Continue current meds . 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 Will use eye bj p.(Cipro as she claims allergy (nausea). Pt. is accompanied by "grounds keepers" from [facility]. Written instructions given for pt. to be seen in follow up by Esther. Written RX also given to pt. for cipro eye drops. Pt. is instructed that the RX has been electronically sent to [facility]. . Continue increased dose of Adderall . Trial of Wellbutrin XL 150mg q AM . Continue PT Add Cymbalta 30mg daily . Cont current meds and PT Exam for Power chair completed Adderall rx refilled . To rehab today for PT/OT--I will follo w on rehab unit . Cont PT Cont Forteo Long discussion about living home--will discuss with PT when finishes this session . EGD by Dr. Dang Pt agrees to restart Forteo Medical Equipment No Medical Equipment data Health Concerns Section Health Concerns data not found Goals Section Goals data not found Interventions Section Interventions data not found Health Status Evaluations/Outcomes Section Health Status Evaluations/Outcomes data not found Advance Directives No Advance Directive data
--- OUTSIDE RECORDS SUMMARY | 2020-03-05 20:43 | XMS REPORT | CCD ---
Author Author Rosario Holguin D.O. 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 Medicare Part B [id number] Unknown Family History Family History data not found Social History Social History Element Codes Description Effective Dates Tobacco history SNOMED CT: 4315189 Former smoker 04/15/2015 Allergies, Adverse Reactions, Alerts [...] Instructions Tessalon Perles 100 mg capsule RxNorm: 403999 1 Capsule(s) Oral Q8H as needed 12/03/2019 No Stop Date Active glycerin (adult) rectal suppository RxNorm: 1 Cardenas ppository Rectal and Tuesday12/03/2019 No Stop Date Active cyanocobalamin (vit B-12) 1,000 mcg/mL injection solution Rx Norm: 048219 1 Milliliter(s) Intramuscular every 2 weeks 06/26/2019 09/24/2019 Inacti ve cyanocobalamin (vit B-12) 1,000 mcg/mL injection solution Rx Norm: 709702 1 Milliliter(s) Intramuscular every 2 weeks 06/26/2019 06/25/2019 Inacti ve bisacodyl 10 mg rectal suppository RxNorm: 854802 1 Sup pository Rectal QD as needed 05/10/2019 No Stop Date Active glycerin (adult) rectal suppository RxNorm: 9045079 1 Suppositor y RTL BIW 07/25/2018 12/02/2019 Inactive rabeprazole 20 mg tablet,delayed release RxNorm: 164651 1 Table t(s) PO QD 03/01/2018 05/29/2018 Inactive replaces lansoprazol e Adderall XR 10 mg capsule,extended release RxNorm: 231873 1 Cap teresa(s) PO QAM 10/20/2017 12/19/2017 Inactive Tessalon Perles 100 mg capsule RxNorm: 071814 1 Capsule (s) PO TID as needed for cough 09/16/2017 09/30/2019 Inactive Cymbalta 30 mg capsule,delayed release RxNorm: 131604 1 Capsule (s) PO QD 08/17/2017 12/02/2019 Inactive nystatin 100,000 unit/gram topical powder RxNorm: 008391 1 Appl ication TOP BID 08/16/2017 02/14/2018 Inactive Adderall XR 10 mg capsule,extended release RxNorm: 060945 1 Cap teresa(s) PO QAM 08/11/2017 09/09/2017 Inactive Adderall XR 10 mg capsule,extended release RxNorm: 638990 1 Cap teresa(s) PO QAM 08/04/2017 08/03/2017 Inactive Adderall XR 10 mg capsule,extended release RxNorm: 470177 1 Cap teresa(s) PO QAM 08/04/2017 08/10/2017 Inactive Bactrim DS 800 mg-160 mg tablet RxNorm: 243522 1 Tablet(s) PO BID 1 08/28/2016 07/07/2017 Inactive clindamycin 300 mg capsule RxNorm: 985293 2 Capsule(s) PO TID doses for today and tomorrow 11/30/2016 05/01/2017 Inactive ketoconazole 2 % shampoo RxNorm: 942183 1 Application TOP twice a week 09/14/2016 05/01/2017 Inactive hydrocodone 5 mg-acetaminophen 325 mg tablet RxNorm: 234317 1 Tablet(s) PO Q6H as needed for pain 07/12/2016 05/01/2017 Inactive Cipro 250 mg tablet RxNorm: 473372 1 Tablet(s) PO BID 09/29/201509/09 Inactive cefuroxime axetil 250 mg tablet RxNorm: 881784 1 Tablet(s) PO BID 0 09/10/2015 09/16/2015 Inactive Micro-K 8 mEq capsule,extended release RxNorm: 362742 1 Capsule (s) PO QD 08/20/2015 08/16/2017 Inactive Micro-K 8 mEq capsule,extended release RxNorm: 224328 1 Capsule (s) PO QD 08/20/2015 08/19/2015 Inactive Adderall XR 20 mg capsule,extended release RxNorm: 117330 1 Cap teresa(s) PO QAM 04/30/2015 02/11/2016 Inactive hydroxyzine HCl 25 mg tablet RxNorm: 454095 1 Tablet(s) PO Q6H as needed for itching/hives 04/02/2015 09/12/2016 Inactive Miralax 17 gram oral powder packet RxNorm: 891683 17 Gr am(s) PO BID for constipation 02/26/2015 02/11/2016 Inactive Adderall XR 20 mg capsule,extended release RxNorm: 220944 1 Cap teresa(s) PO QAM 07/09/2014 08/07/2014 Inactive Adderall 20 mg tablet RxNorm: 738383 2 Tablet(s) PO QD 02/04/201408/2013 Inactive [AttnRPh: Saving apply/adjudicate RxGRP: SG20 RxBIN:[id number] RxPCN:HT ID#:[id number]] triamcinolone acetonide 0.1 % topical cream RxNorm: 8346184 1 Application TOP BID to affected area as needed 12/12/2013 01/13/2015 Inactive [ AttnRPh: Saving apply/adjudicate RxGRP:SG20 RxBIN:[id number] RxPCN:HT ID#:[id number]] Adderall 20 mg tablet RxNorm: 328091 2 Tablet(s) PO QD 12/04/2013 Inactive [AttnRPh: Saving apply/adjudicate RxGRP: SG20 RxBIN:[id number] RxPCN:HT ID#:[id number]] Adderall 20 mg tablet RxNorm: 284651 2 Tablet(s) PO QD 12/03/2013 Inactive [AttnRPh: Saving apply/adjudicate RxGRP: SG20 RxBIN:[id number] RxPCN:HT ID#:[id number]] Adderall 20 mg tablet RxNorm: 294586 2 Tablet(s) PO QD 11/02/2013 Inactive Adderall 20 mg tablet RxNorm: 586219 2 Tablet(s) PO QD 10/01/2013 Inactive meloxicam 7.5 mg tablet RxNorm: 471878 1 Tablet(s) PO QD 09/24/2013 0 08/19/2014 Inactive lisinopril 20 mg tablet RxNorm: 006710 1 Tablet(s) PO QD 09/24/2013 0 08/19/2014 Inactive Protonix 40 mg tablet,delayed release RxNorm: 361641 1 Tablet(s ) PO QD 09/24/2013 08/19/2014 Inactive Adderall 20 mg tablet RxNorm: 870238 2 Tablet(s) PO QD 08/29/2013 Inactive Adderall 20 mg tablet RxNorm: 917146 2 Tablet(s) PO QD 08/02/2013 Inactive hydroxyzine HCl 25 mg tablet RxNorm: 393751 1 Tablet(s) PO Q6H as needed 06/29/2013 08/19/2014 Inactive Adderall 20 mg tablet RxNorm: 690292 2 Tablet(s) PO QD 05/22/2013 Inactive Protonix 40 mg tablet,delayed release RxNorm: 114041 1 Tablet(s ) PO QD 05/15/2013 09/11/2013 Inactive meloxicam 7.5 mg tablet RxNorm: 357010 1 Tablet(s) PO QD 05/15/2013 0 09/11/2013 Inactive lisinopril 20 mg tablet RxNorm: 482516 1 Tablet(s) PO QD 05/15/2013 0 09/11/2013 Inactive Adderall 20 mg tablet RxNorm: 470282 2 Tablet(s) PO QD 04/02/2013 No Stop Date Active Adderall 20 mg tablet RxNorm: 521081 2 Tablet(s) PO QD 02/27/2013 No Stop Date Active Adderall 20 mg tablet RxNorm: 447823 2 Tablet(s) PO QD 01/22/2013 No Stop Date Active Adderall 20 mg tablet RxNorm: 682819 2 Tablet(s) PO QD 12/28/2012 No Stop Date Active Adderall 20 mg tablet RxNorm: 264912 2 Tablet(s) PO QD 12/01/2012 No Stop Date Active Adderall 20 mg tablet RxNorm: 132020 2 Tablet(s) PO QD 11/01/2012 No Stop Date Active K-Dur 20 mEq tablet,extended release RxNorm: 169110 1 Tablet(s) PO QD 10/19/2012 11/26/2018 Inactive meloxicam 7.5 mg tablet RxNorm: 772741 1 Tablet(s) PO QD 10/19/2012 0 04/16/2013 Inactive Protonix 40 mg tablet,delayed release RxNorm: 207727 1 Tablet(s ) PO QD 10/19/2012 04/16/2013 Inactive lisinopril 20 mg tablet RxNorm: 125294 1 Tablet(s) PO QD 10/19/2012 0 04/16/2013 Inactive Cipro 500 mg tablet RxNorm: 603652 1 Tablet(s) PO BID 07/05/201211/2011 Inactive Adderall XR 20 mg capsule,extended release RxNorm: 619972 2 Cap teresa(s) PO QAM 06/12/2012 07/26/2012 Inactive Adderall XR 20 mg capsule,extended release RxNorm: 633926 2 Cap teresa(s) PO QAM 05/16/2012 06/11/2012 Inactive Adderall XR 20 mg capsule,extended release RxNorm: 134293 2 Cap teresa(s) PO QAM 04/21/2012 05/15/2012 Inactive Adderall XR 20 mg capsule,extended release RxNorm: 056528 2 Cap teresa(s) PO QAM 02/16/2012 03/16/2012 Inactive Enablex 15 mg 24 hr Tab RxNorm: 803341 1 Tablet(s) PO QPM repla mady Vesicare 02/07/2012 05/28/2012 Inactive Enablex 15 mg 24 hr Tab RxNorm: 067728 1 Tablet(s) PO QPM repla mady Vesicare 02/07/2012 08/04/2012 Inactive Protonix 40 mg Tab RxNorm: 708922 1 Tablet(s) PO QD 02/07/20122011 Inactive Protonix 40 mg Tab RxNorm: 677452 1 Tablet(s) PO QD 02/02/20122011 Inactive Enablex 15 mg 24 hr Tab RxNorm: 192657 1 Tablet(s) PO QPM repla mady Vesicare 02/02/2012 02/06/2012 Inactive Adderall XR 20 mg 24 hr Cap RxNorm: 242255 2 Capsule(s) PO QAM 01/0602/15/2012 Inactive Adderall XR 20 mg 24 hr Cap RxNorm: 664873 2 Capsule(s) PO QAM 12/0601/15/2012 Inactive Adderall XR 20 mg 24 hr Cap RxNorm: 553361 2 Capsule(s) PO QAM 11/0612/16/2011 Inactive Adderall XR 20 mg 24 hr Cap RxNorm: 970951 2 Capsule(s) PO QAM 10/0611/17/2011 Inactive Adderall XR 20 mg 24 hr Cap RxNorm: 190601 2 Capsule(s) PO QAM 09/0910/24/2011 Inactive Prevacid 30 mg Cap RxNorm: 803130 1 Capsule(s) PO QD 07/30/201109/27 Inactive Adderall XR 20 mg 24 hr Cap RxNorm: 607469 2 Capsule(s) PO QAM 07/0908/28/2011 Inactive Adderall XR 20 mg 24 hr Cap RxNorm: 446051 2 Capsule(s) PO QAM 06/0807/21/2011 Inactive ciprofloxacin 0.3 % Eye Drops RxNorm: 079503 2 Drop(s) OPH Q2H 05/0905/31/2011 Inactive Adderall XR 20 mg 24 hr Cap RxNorm: 937856 2 Capsule(s) PO QAM 05/08 No Stop Date Active Wellbutrin XL 150 mg 24 hr Tab RxNorm: 611867 1 Tablet(s) PO QAM 04/14/2011 Inactive Vesicare 10 mg Tab RxNorm: 302506 1 Tablet(s) PO QD 12/24/20102011 Inactive Vesicare 10 mg Tab RxNorm: 092084 1 Tablet(s) PO QD 12/21/20102018 Inactive Adderall XR 30 mg 24 hr Cap RxNorm: 626231 1 Capsule(s) PO QD 11/1712/16/2010 Inactive Vesicare 10 mg Tab RxNorm: 296326 1 Tablet(s) PO QD 09/21/20102010 Inactive Adderall XR 30 mg 24 hr Cap RxNorm: 358949 1 Capsule(s) PO 09/17/19 11 10/16/2010 Inactive Adderall XR 30 mg 24 hr Cap RxNorm: 026115 1 Capsule(s) PO QAM 07/0911/26/2018 Inactive Adderall XR 30 mg 24 hr Cap RxNorm: 151405 1 Capsule(s) PO QAM 07/0908/03/2010 Inactive Adderall XR 20 mg 24 hr Cap RxNorm: 044040 2 Capsule(s) PO QD 01/2602/02/2010 Inactive Adderall XR 20 mg 24 hr Cap RxNorm: 549347 1 Capsule(s) PO QD 01/2605/03/2010 Inactive Forteo 20 mcg/dose (600 mcg/2.4 mL) Sub-Q Pen Injector RxNorm: 1 696970 SQ 12/30/2009 01/25/2011 Inactive hyoscyamine 0.125 mg sublingual tablet RxNorm: 1290141 1 Tablet(s) SL Q4H as needed for excessive secretions No Start Date Active Senokot-S 8.6 mg-50 mg tablet RxNorm: 0085817 2 Tablet(s) PO BID No Start Date Active rabeprazole 20 mg tablet,delayed release RxNorm: 190827 1 Table t(s) PO QD No Start Date Active Micro-K 10 10 mEq capsule,extended release RxNorm: 574753 1 Cap teresa(s) PO QD No Start Date Active docusate sodium 100 mg tablet RxNorm: 7302736 1 Tablet(s) PO Q8H as needed No Start Date Active ondansetron HCl 4 mg tablet RxNorm: 742557 1 Tablet(s) PO Q4H a s needed No Start Date Active Vitamin D3 5,000 unit tablet RxNorm: 555513 1 Tablet(s) PO QD No Star t Date Active bisacodyl 5 mg tablet RxNorm: 835045 1 Tablet(s) PO BID as needed N o Start Date Active aspirin 81 mg tablet RxNorm: 483737 1 Tablet(s) PO QD No Start Date Active Multivitamin And Mineral oral RxNorm: oral No Start Date Active Benadryl 1 % topical cream RxNorm: 4718959 TOP as needed for hiv es No Start Date Active K-Dur 20 mEq tablet,extended release RxNorm: 667543 1 Tablet(s) PO QD No Start Date 08/19/2014 Inactive Colace 100 mg capsule RxNorm: 9200954 1 Capsule(s) PO BID No Start Date 01/19/2017 Inactive ketoconazole 2 % shampoo RxNorm: 895334 1 Application TOP twice a week No Start Date 09/13/2016 Inactive ibuprofen 600 mg tablet RxNorm: 479480 1 Tablet(s) PO Q6H as ne eded No Start Date 06/21/2018 Inactive Zaditor 0.025 % Eye Drops RxNorm: 544428 1 Drop(s) OPH BID No Start Date 05/28/2012 Inactive senna 8.6 mg tablet RxNorm: 198830 2 Tablet(s) PO BID No Start Date 0 02/11/2016 Inactive senna 8.6 mg tablet RxNorm: 387471 1 Tablet(s) PO BID No Start Date 0 02/11/2016 Inactive Amoxil 500 mg capsule RxNorm: 239953 1 Capsule(s) PO BID No Start D ate 05/01/2017 Inactive lisinopril 20 mg tablet RxNorm: 035360 1 Tablet(s) PO QD No Start D ate 10/18/2012 Inactive Prevacid 30 mg Capsule, delayed release RxNorm: 858812 1 Capsul e(s) PO QD No Start Date 02/01/2012 Inactive Senokot-S 8.6 mg-50 mg Tab RxNorm: 9575216 2 Tablet(s) PO QD PRN No Start Date 03/02/2010 Inactive Cymbalta 30 mg capsule,delayed release RxNorm: 057398 1 Capsule (s) PO QD No Start Date 08/16/2017 Inactive ketoconazole 2 % topical cream RxNorm: 174400 1 Applica tion TOP BID to scaly eyebrows No Start Date 05/01/2017 Inactive lorazepam 0.5 mg tablet RxNorm: 477165 1 Tablet(s) PO Q4H as ne eded No Start Date 06/21/2018 Inactive Vitamin C 500 mg tablet RxNorm: 557897 1 Tablet(s) PO QD No Start D ate 01/21/2013 Inactive albuterol sulfate 2.5 mg/3 mL (0.083 %) Neb Solution RxNorm: 961873 Milliliter(s) INH 1 vial in nebulizer every 4 hours as needed No Start Date 01/21/2013 Inactive Adderall XR 20 mg 24 hr Cap RxNorm: 554702 1 Capsule(s) PO QAM No S tart Date 01/25/2011 Inactive Xanax 0.25 mg Tab RxNorm: 768238 1/2 Tablet(s) PO BID PRN No Start Date 03/02/2010 Inactive Tylenol Extra Strength 500 mg Tab RxNorm: 965002 2 Tablet(s) PO PRN No Start Date 08/24/2011 Inactive Adderall 20 mg tablet RxNorm: 780636 2 Tablet(s) PO QD No Start Date 10/31/2012 Inactive bisacodyl 5 mg tablet,delayed release RxNorm: 843858 1 Tablet(s) PO Q12H as needed No Start Date 02/04/2019 Inactive Tessalon Perles 100 mg capsule RxNorm: 365686 1 Capsule (s) PO TID as needed for cough No Start Date 09/15/2017 Inactive Vitamin D3 1,000 unit tablet RxNorm: 049630 3 Tablet(s) PO QD No St art Date 02/22/2017 Inactive meloxicam 7.5 mg tablet RxNorm: 245260 1 Tablet(s) PO QD No Start D ate 10/18/2012 Inactive Bactroban 2 % topical ointment RxNorm: 856773 1 Application TOP QD No Start Date 12/11/2017 Inactive Toviaz 8 mg 24 hr Tab RxNorm: 250535 1 Tablet(s) PO QD No Start Date 09/21/2010 Inactive Prevacid 15 mg capsule,delayed release RxNorm: 748995 Capsule(s ) PO QD No Start Date 02/28/2018 Inactive K-Dur 20 mEq tablet,extended release RxNorm: 8136731 1 Tablet(s) PO QD No Start Date 10/18/2012 Inactive Adderall XR 20 mg 24 hr Cap RxNorm: 605269 2 Capsule(s) PO QAM No S tart Date 05/24/2011 Inactive Calcium with Vitamin D 600 mg-400 unit Tab RxNorm: 576288 1 Tab let(s) PO QD No Start Date 08/24/2011 Inactive Miralax 17 gram oral powder packet RxNorm: 852306 17 Gram(s) PO BID as needed No Start Date 11/26/2018 Inactive Zestril 10 mg Tab RxNorm: 660630 1 Tablet(s) PO QD No Start Date 10/06 Inactive baclofen 10 mg tablet RxNorm: 581916 1 Tablet(s) PO QHS No Start Da te 09/11/2015 Inactive Tums 500 Oral RxNorm: Oral No Start Date 01/13/2015 Inactive Senokot-S 8.6 mg-50 mg tablet RxNorm: 0861302 1 Tablet(s) PO BID No Start Date 11/26/2018 Inactive Prozac 10 mg Tab RxNorm: 729115 1 Capsule(s) PO QD No Start Date 10/06 Inactive Elavil 10 mg tablet RxNorm: 873394 1 Tablet(s) PO QHS No Start Date 0 12/12/2018 Inactive Dulcolax Stool Softener (docusate) 100 mg capsule RxNorm: 12 14275 1 Capsule(s) PO Q8H as needed No Start Date 01/19/2017 Inactive Adderall XR 30 mg 24 hr Cap RxNorm: 067883 1 Capsule(s) PO QAM No S tart Date 04/14/2011 Inactive Milk of Alexa-Maury 15.25 % oral suspension RxNorm: oral No Start Date 11/26/2018 Inactive Tylenol 325 mg tablet RxNorm: 962626 2 Tablet(s) PO Q4H as needed N o Start Date 11/26/2018 Inactive Prilosec 20 mg capsule,delayed release RxNorm: 390092 1 Capsule (s) PO BID No Start Date 09/08/2014 Inactive Tylenol 8 Hour 650 mg tablet,extended release RxNorm: 916190 0 1 Tablet(s) PO Q4H as needed No Start Date 11/26/2018 Inactive Vitamin D3 2,000 unit tablet RxNorm: 885609 1 Tablet(s) PO QD No St art Date 02/22/2017 Inactive nystatin 100,000 unit/gram topical powder RxNorm: 423840 1 Appl ication TOP BID No Start Date 08/15/2017 Inactive morphine 20 mg/5 mL (4 mg/mL) oral solution RxNorm: 337955 .25 Milliliter(s) PO Q4H as needed No Start Date 09/24/2018 Inactive Forteo 20 mcg/dose (750 mcg/3 mL) Sub-Q Pen Injector RxNorm: 143 5115 SQ QD No Start Date 01/21/2010 Inactive ciprofloxacin 0.3 % Eye Drops RxNorm: 613133 2 Drop(s) OPH TID to affected eye No Start Date 08/23/2012 Inactive bisacodyl 5 mg tablet RxNorm: 925599 1 Tablet(s) PO BID No Start Da te 02/11/2016 Inactive Avosil 2 %-0.2 % topical ointment RxNorm: 1 Appl ication TOP Q8H as needed to burn sites No Start Date 11/26/2018 Inactive Milk of Sarahesia 800 mg/5 mL oral suspension RxNorm: 194317 Milliliter(s) PO as needed No Start Date 06/20/2018 Inactive Atarax 25 mg tablet RxNorm: 628149 1 Tablet(s) PO Q4H prn itchi ng/hives No Start Date 08/24/2011 Inactive Adderall XR 30 mg 24 hr Cap RxNorm: 137220 1 Capsule(s) PO QAM No S tart Date 07/26/2010 Inactive Prevacid 30 mg Cap RxNorm: 821590 1 Capsule(s) PO QD No Start Date Inactive Vitamin C 500 mg tablet RxNorm: 108234 1 Tablet(s) PO BID No Start Date 07/11/2016 Inactive Vistaril 25 mg capsule RxNorm: 214486 1 Capsule(s) PO Q4H PRN No St art Date 03/02/2010 Inactive tramadol 50 mg tablet RxNorm: 016733 1 Tablet(s) PO TID as need ed for pain No Start Date 01/21/2013 Inactive Multivitamin & Mineral Formula tablet RxNorm: 1 Tablet(s) PO Q D No Start Date 06/22/2018 Inactive hydrocodone 5 mg-acetaminophen 325 mg tablet RxNorm: 303337 1 Tablet(s) PO Q4H as needed for pain No Start Date 06/24/2019 Inactive Multivitamin & Mineral Formula Oral RxNorm: Oral No Start Da te 03/02/2010 Inactive Miralax 17 gram oral powder packet RxNorm: 507695 17 Gr am(s) PO QPM for constipation No Start Date 02/25/2015 Inactive Percocet 5 mg-325 mg tablet RxNorm: 8641966 1-2 Tablet(s) PO Q4H as needed No Start Date 09/24/2018 Inactive triamcinolone acetonide 0.1 % topical cream RxNorm: 6408278 1 Application TOP TID to affected area as needed No Start Date 12/12/2013 Inactive rabeprazole 20 mg tablet,delayed release RxNorm: 194035 1 Table t(s) PO QD No Start Date 09/24/2018 Inactive Protonix 40 mg tablet,delayed release RxNorm: 064807 1 Tablet(s ) PO QD No Start Date 10/18/2012 Inactive Mobic 7.5 mg Tab RxNorm: 235996 1 Tablet(s) PO BID No Start Date 10/06 Inactive Sinemet CR 50 mg-200 mg Tab RxNorm: 696702 1 Tablet(s) PO QD No Sta rt Date 03/02/2010 Inactive Adderall XR 20 mg 24 hr Cap RxNorm: 801888 2 Capsule(s) PO QD No St art Date 02/02/2010 Inactive Medication Administered No Medication Administered data Immunizations No Immunization data Results Observation Observation Code Item Item Code Result Date S vice Location COMPLETE BLOOD COUNT [id number] WBC 7.3 10e9/L 05/29/20 12 Unknown COMPLETE BLOOD COUNT [id number] RBC 5.20 10e12/L 2011 Unknown COMPLETE BLOOD COUNT [id number] HGB 15.3 g/dL 2 Unknown COMPLETE BLOOD COUNT [id number] HCT DET 45.9 % 2 Unknown COMPLETE BLOOD COUNT [id number] MCV 88.3 fL 2 Unknown COMPLETE BLOOD COUNT [id number] MCH 29.4 pg 2 Unknown COMPLETE BLOOD COUNT [id number] MCHC 33.3 g/dL 2 Unknown COMPLETE BLOOD COUNT [id number] PLT 341 10e9/L 05/29/20 12 Unknown COMPLETE BLOOD COUNT [id number] MPV 10.1 fL 2 Unknown COMPLETE BLOOD COUNT [id number] ASHLEY % 63.2 % 2 Unknown COMPLETE BLOOD COUNT [id number] LY % 27.4 % 2 Unknown COMPLETE BLOOD COUNT [id number] MON % 7.6 % 2 Unknown COMPLETE BLOOD COUNT [id number] EOS % 1.5 % 2 Unknown COMPLETE BLOOD COUNT [id number] BASO % 0.3 % 2 Unknown COMPLETE BLOOD COUNT [id number] RDW 13.6 % 2 Unknown COMPLETE BLOOD COUNT [id number] ABS ASHLEY 4.61 10e9/L 012 Unknown COMPLETE BLOOD COUNT [id number] ABS LYMPH 2.00 10e9/L 012 Unknown COMPLETE BLOOD COUNT [id number] ABS MONO 0.55 10e9/L 012 Unknown COMPLETE BLOOD COUNT [id number] ABS EOS 0.11 10e9/L 012 Unknown COMPLETE BLOOD COUNT [id number] ABS BASO 0.02 10e9/L 012 Unknown COMPLETE BLOOD COUNT [id number] RDW-SD 43.5 fL 2 Unknown THYROID STIMULATING HORMONE 77407 TSH 1.487 uIU/ML 05/29/2012 Unknown GFR CALC [id number] GFR AA >60 ML/MIN 05/29/2012 Unknown GFR CALC [id number] GFR NON-AA >60 ML/MIN 05/29/2012 Unknown FREE T4 91289 FREE T4 1.20 NG/DL 05/29/2012 Unknown COMPREHENSIVE METABOLIC 03959 AST 17 U/L 2011 Unknown COMPREHENSIVE METABOLIC 40613 ALT 16 IU/L 2011 Unknown COMPREHENSIVE METABOLIC 43926 BUN 9 MG/DL 2011 Unknown COMPREHENSIVE METABOLIC 84900 ALBUMIN 4.1 GM/DL 2011 Unknown COMPREHENSIVE METABOLIC 80423 CHLORIDE 106 MMOL/L 05/29 Unknown COMPREHENSIVE METABOLIC 34101 BILI TOT 0.4 MG/DL 2011 Unknown COMPREHENSIVE METABOLIC 37070 ALK PHOS 87 U/L 2011 Unknown COMPREHENSIVE METABOLIC 16730 SODIUM 142 MMOL/L 05/29 Unknown COMPREHENSIVE METABOLIC 47505 CREATININE 0.79 MG/DL 05/09 Unknown COMPREHENSIVE METABOLIC 93061 CALCIUM 9.2 MG/DL 2011 Unknown COMPREHENSIVE METABOLIC 46996 POTASSIUM 3.6 MMOL/L 05/29 Unknown COMPREHENSIVE METABOLIC 74186 PROT TOT 6.5 GM/DL 2011 Unknown COMPREHENSIVE METABOLIC 41166 Glucose 78 MG/DL 2011 Unknown COMPREHENSIVE METABOLIC 21276 BICARB 27 MMOL/L 2011 Unknown COMPREHENSIVE METABOLIC 61864 ANION GAP 9 MEQ/L 2011 Unknown Procedures Procedure Codes Date PPPS, subseq visit CPT-4: G0439 08/03/2018 PPPS, subseq visit CPT-4: G0439 07/12/2016 CUR TOBACCO NON-USER CPT-4: G8457 04/15/2015 URINALYSIS NONAUTO W/O SCOPE CPT-4: 54448 07/05/2012 URINE CULTURE/ COLONY COUNT CPT-4: 31656 07/05/2012 PRESCRIP TRANSMIT VIA ERX SY CPT-4: G8553 07/05/2012 ROUTINE VENIPUNCTURE CPT-4: 82744 05/29/2012 ASSAY OF FREE THYROXINE CPT-4: 12610 05/29/2012 ASSAY THYROID STIM HORMONE CPT-4: 54608 05/29/2012 COMPREHEN METABOLIC PANEL CPT-4: 83035 05/29/2012 COMPLETE CBC W/AUTO DIFF WBC CPT-4: 91553 05/29/2012 PRESCRIP TRANSMIT VIA ERX SY CPT-4: G8553 05/29/2012 PRESCRIP TRANSMIT VIA ERX SY CPT-4: G8553 02/02/2012 PRESCRIP TRANSMIT VIA ERX SY CPT-4: G8553 05/27/2011 PRESCRIP TRANSMIT VIA ERX SY CPT-4: G8553 02/22/2011 SERVICE REQUIRED FOR PMD CPT-4: G0372 06/15/2010 ROUTINE VENIPUNCTURE CPT-4: 56084 10/20/2009 Vital Signs Date Vital 02/20/2020 Blood [...] 1: 114/66 Code: 8480-6 BMI: 25.8 Code: 60771-3 Heart Rate 1: 72 bpm Height: 5'2" [...] 1: 122/80 Code: 8480-6 BMI: 24.9 Code: 00029-4 Heart Rate 1: 100 bpm Height: 5'2" Respiratory Rate: 20 bpm Temperature: 37 .1 (C) / 98.8 (F) Weight: 136 lbs 11/03/2011 Blood Pressure 1: 104/60 Code: 8480-6 BMI: 24.1 Code: 74679-5 Heart Rate 1: 88 bpm Height: 5'2" Respiratory Rate: 20 bpm Temperature: 36 .6 (C) / 97.8 (F) Weight: 132 lbs 08/25/2011 Blood Pressure 1: 128/86 Code: 8480-6 BMI: 24.9 Code: 17429-5 Heart Rate 1: 76 bpm Height: 5'2" Respiratory Rate: 20 bpm Temperature: 36 .2 (C) / 97.2 (F) Weight: 136 lbs 05/27/2011 Blood Pressure 1: 130/90 Code: 8480-6 BMI: 25.1 Code: 56434-4 Heart Rate 1: 68 bpm Height: 5'2" [...] 1: 114/70 Code: 8480-6 BMI: 22.9 Code: 91672-2 Heart Rate 1: 92 bpm Height: 5'2" [...] N/V Encounters Encounter Performer Location Codes Date (37037) OFFICE/OUTPATIENT VISIT EST Diagnosis: Hemiplegia, unspecified affecting left dominant side[ICD10: G81.92] Diagnosis: Gastro-esophageal reflux disease without esophagitis[ICD10: K21.9] Diagnosis: Muscle weakness (generalized)[ICD10: M62.81] Cherri Thomas Visier CPT-4: 24578 02/20/2020 ([id number]) OFFICE/OUTPATIENT VISIT EST Diagnosis: Left arm cellulitis[ICD10: L03.114] Diagnosis: Skin tear of left upper extremity[ICD10: S41.112A] Cherri Thomas Visier CPT-4: 71994 12/10/2019 ([id number]) OFFICE/OUTPATIENT VISIT EST Diagnosis: Constipation[ICD10: K59.00] Diagnosis: Sacral decubitus ulcer[ICD10: L89.159] Cherri Thomas Visier CPT-4: 13637 12/03/2019 ([id number]) OFFICE/OUTPATIENT VISIT EST 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] Diagnosis: Muscle weakness (generalized)[ICD10: M62.81] Cherri HOLGUIN DO [facility] CPT-4: 76739 10/01/2019 ([id number]) OFFICE/OUTPATIENT VISIT EST Diagnosis: Personal history of malignant neoplasm of brain[ICD10: Z85.841] Diagnosis: Muscle weakness (generalized)[ICD10: M62.81] Diagnosis: Hemiplegia, unspecified affecting left dominant side[ICD10: G81.92] Diagnosis: Contracture, 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] Cherri HOLGUIN [facility] CPT-4: 51677 06/25/2019 ([id number]) OFFICE/OUTPATIENT VISIT EST Diagnosis: Attention and concentration deficit[ICD10: R41.840] Diagnosis: Abnormal weight loss[ICD10: R63.4] Cherri HOLGUIN [employer] [facility] CPT-4: 37128 02/05/2019 ([id number]) OFFICE/OUTPATIENT VISIT EST Diagnosis: Attention and concentration deficit[ICD10: R41.840] Cherri HOLGUIN [facility] CPT-4: 95493 12/13/2018 ([id number]) OFFICE/OUTPATIENT VISIT EST Diagnosis: Laceration without foreign body of left upper arm, sequela[ICD10: S41.112S] Diagnosis: Other fatigue[ICD10: R53.83] Chreri HOLGUIN [facility] CPT-4: 60608 11/27/2018 ([id number]) OFFICE/OUTPATIENT VISIT EST Diagnosis: Gastro-esophageal reflux disease without esophagitis[ICD10: K21.9] Diagnosis: Contracture, 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] Diagnosis: Slow transit constipation[ICD10: K59.01] Cherri HOLGUIN DO [facility] CPT-4: 36006 09/25/2018 ([id number]) OFFICE/OUTPATIENT VISIT EST Diagnosis: Gastro-esophageal reflux disease without esophagitis[ICD10: K21.9] Diagnosis: Muscle weakness (generalized)[ICD10: M62.81] Maxine HOLGUIN DO [facility] CPT-4: 82703 06/22/2018 ([id number]) OFFICE/OUTPATIENT VISIT EST Diagnosis: Gastro-esophageal reflux disease without esophagitis[ICD10: K21.9] Cherri HOLGUIN DO [facility] CPT-4: 44888 04/06/2018 ([id number]) OFFICE/OUTPATIENT VISIT EST Diagnosis: Gastro-esophageal reflux disease without esophagitis[ICD10: K21.9] Maxine HOLGUIN DO [facility] CPT-4: 00976 03/06/2018 ([id number]) OFFICE/OUTPATIENT VISIT EST Diagnosis: 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] Diagnosis: Gastro-esophageal reflux disease without esophagitis[ICD10: K21.9] Diagnosis: Slow transit constipation[ICD10: K59.01] Diagnosis: Primary insomnia[ICD10: F51.01] Cherri HOLGUIN [employer] [facility] CPT-4: 13709 02/15/2018 ([id number]) OFFICE/OUTPATIENT VISIT EST Diagnosis: Muscle weakness (generalized)[ICD10: M62.81] Diagnosis: Gastro-esophageal reflux disease without esophagitis[ICD10: K21.9] Cherri HOLGUIN DO [employer] CPT-4: 94481 12/12/2017 ([id number]) OFFICE/OUTPATIENT VISIT EST Diagnosis: Nondisplaced fracture of medial malleolus of left tibia, subsequent encounter for closed fracture with delayed healing[ICD10: S82.55XG] Cherri HOLGUIN DO [facility] CPT-4: 86682 10/10/2017 OFFICE/OUTPATIENT VISIT EST Diagnosis: Acute upper respiratory infection, unspecified[ICD10: J06.9] Maxine HOLGUIN DO [facility] CPT-4: 23392 09/19/2017 ([id number]) OFFICE/OUTPATIENT VISIT EST Diagnosis: Muscle weakness (generalized)[ICD10: M62.81] Diagnosis: Other specified disorders of the skin and subcutaneous tissue[ICD10: L98.8] Cherri HOLGUIN DO [facility] CPT-4: 98119 08/04/2017 ([id number]) OFFICE/OUTPATIENT VISIT EST Diagnosis: Unspecified open wound of abdominal wall, left upper quadrant with penetration into peritoneal cavity, sequela[ICD10: S31.601S] Diagnosis: Muscle weakness (generalized)[ICD10: M62.81] Diagnosis: Personal history of malignant neoplasm of brain[ICD10: Z85.841] Cherri HOLGUIN DO [facility] CPT-4: 57519 07/12/2017 ([id number]) OFFICE/OUTPATIENT VISIT EST Diagnosis: Non-pressure chronic ulcer of skin of other sites with unspecified severity[ICD10: L98.499] Diagnosis: Tinea cruris[ICD10: B35.6] Cherri RUSHING [facility] CPT-4: 38784 05/30/2017 ([id number]) OFFICE/OUTPATIENT VISIT EST Diagnosis: Cellulitis of abdominal wall[ICD10: L03.311] Diagnosis: Cellulitis of chest wall[ICD10: L03.313] Cherri HOLGUIN DO [facility] CPT-4: 09569 05/02/2017 ([id number]) OFFICE/OUTPATIENT VISIT EST Diagnosis: Cellulitis of chest wall[ICD10: L03.313] Diagnosis: Muscle weakness (generalized)[ICD10: M62.81] Cherri HOLGUIN DO [facility] CPT-4: 77979 02/28/2017 ([id number]) OFFICE/OUTPATIENT VISIT EST Diagnosis: Cellulitis of abdominal wall[ICD10: L03.311] Cherri HOLGUIN DO [facility] CPT-4: 01467 12/06/2016 OFFICE/OUTPATIENT VISIT EST Diagnosis: Cutaneous abscess of abdominal wall[ICD10: L02.211] Diagnosis: Cellulitis of abdominal wall[ICD10: L03.311] Cherri HOLGUIN DO [facility] CPT-4: 03837 12/02/2016 ([id number]) OFFICE/OUTPATIENT VISIT EST Diagnosis: Cellulitis of abdominal wall[ICD10: L03.311] Diagnosis: Cutaneous abscess of abdominal wall[ICD10: L02.211] Cherri HOLGUIN DO [facility] CPT-4: 96054 12/01/2016 ([id number]) OFFICE/OUTPATIENT VISIT EST Diagnosis: Cutaneous abscess of abdominal wall[ICD10: L02.211] Diagnosis: Cellulitis of abdominal wall[ICD10: L03.311] Cherri HOLGUIN [facility] CPT-4: 11144 11/30/2016 ([id number]) OFFICE/OUTPATIENT VISIT EST Diagnosis: Muscle weakness (generalized)[ICD10: M62.81] Diagnosis: Slow transit constipation[ICD10: K59.01] Diagnosis: 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, 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] Cherri HOLGUIN [facility] CPT-4: 25069 10/26/2016 ([id number]) OFFICE/OUTPATIENT VISIT EST Diagnosis: Other seborrheic dermatitis[ICD10: L21.8] Cherri HOLGUIN [facility] CPT-4: 68885 09/13/2016 ([id number]) OFFICE/OUTPATIENT VISIT EST Diagnosis: Contracture, 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] Diagnosis: Nicotine dependence, cigarettes, uncomplicated[ICD10: F17.210] Diagnosis: Hemiplegia, unspecified affecting unspecified side[ICD10: G81.90] Diagnosis: Muscle weakness (generalized)[ICD10: M62.81] Cherriолег Pappasramuxuan HOLGUIN [facility] CPT-4: 16949 05/11/2016 ([id number]) OFFICE/OUTPATIENT VISIT EST Diagnosis: Muscle weakness (generalized)[ICD10: M62.81] Diagnosis: Abnormal weight loss[ICD10: R63.4] [facility] CPT-4: 97493 12/23/2015 ([id number]) OFFICE/OUTPATIENT VISIT EST Diagnosis: Torticollis[ICD10: M43.6] Diagnosis: Cervicalgia[ICD10: M54.2] Diagnosis: Basal cell carcinoma of skin, unspecified[ICD10: C44.91] Cherri HOLGUIN [facility] CPT-4: 11352 09/23/2015 ([id number]) OFFICE/OUTPATIENT VISIT EST Diagnosis: Constipation[ICD9: 564.00] Diagnosis: MUSCLE WEAKNESS-GENERAL[ICD9: 728.87] Cherri HOLGUIN [facility] CPT-4: 39549 04/15/2015 ([id number]) OFFICE/OUTPATIENT VISIT EST Diagnosis: MALAISE AND FATIGUE[ICD9: 780.79] Diagnosis: 3RD DEGREE BURN[ICD9: 949.3] Cherri HOLGUIN DO [facility] CPT-4: 96943 01/14/2015 ([id number]) OFFICE/OUTPATIENT VISIT EST Diagnosis: Constipation[ICD9: 564.00] Diagnosis: MUSCLE WEAKNESS-GENERAL[ICD9: 728.87] Diagnosis: 3RD DEGREE BURN[ICD9: 949.3] Cherri HOLGUIN [facility] CPT-4: 48265 10/29/2014 ([id number]) OFFICE/OUTPATIENT VISIT EST Diagnosis: Weakness generalized[ICD9: 780.79] Diagnosis: 3RD DEGREE BURN[ICD9: 949.3] Cherri HOLGUIN [facility] CPT-4: 91684 08/20/2014 ([id number]) OFFICE/OUTPATIENT VISIT EST Diagnosis: 3RD DEGREE BURN[ICD9: 949.3] Diagnosis: DYSPHAGIA NEC[ICD9: 787.29] Cherri Pappasramuxuan CHERRI EarlBelkis Jaquan XENIA [facility] CPT-4: 04446 06/04/2014 ([id number]) OFFICE/OUTPATIENT VISIT EST Diagnosis: 3RD DEGREE BURN[ICD9: 949.3] Diagnosis: Complication of skin graft[ICD9: 996.52] Diagnosis: TOBACCO USE DISORDER[ICD9: 305.1] Cherri Mianrl Franklin EarlBelkis [facility] CPT-4: 43662 05/06/2014 ([id number]) OFFICE/OUTPATIENT VISIT EST Diagnosis: CELLULITIS[ICD9: 682.9] Cherri Mianrl MACHUCA [employer] LAWSON BRUNSON [facility] CPT-4: 70261 08/07/2013 ([id number]) OFFICE/OUTPATIENT VISIT EST Diagnosis: MUSCLE WEAKNESS-GENERAL[ICD9: 728.87] Diagnosis: MALAISE AND FATIGUE[ICD9: 780.79] Diagnosis: ABNORMALITY OF GAIT[ICD9: 781.2] Cherri HOLGUIN [employer] CPT-4: 34717 05/23/2013 ([id number]) OFFICE/OUTPATIENT VISIT EST Diagnosis: MALAISE AND FATIGUE[ICD9: 780.79] Diagnosis: MUSCLE WEAKNESS-GENERAL[ICD9: 728.87] Diagnosis: HEMIPLEGIANOS SIDE NOS[ICD9: 342.90] Diagnosis: 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] Cherri HOLGUIN [employer] CPT-4: 37354 04/25/2013 ([id number]) OFFICE/OUTPATIENT VISIT EST Diagnosis: MUSCLE WEAKNESS-GENERAL[ICD9: 728.87] Diagnosis: ABNORMALITY OF GAIT[ICD9: 781.2] Diagnosis: MALAISE AND FATIGUE[ICD9: 780.79] Cherri BYERS Noemi Martha HOLGUIN [employer] CPT-4: 14331 01/22/2013 OFFICE/OUTPATIENT VISIT EST Diagnosis: MALAISE AND FATIGUE[ICD9: 780.79] Diagnosis: MUSCLE WEAKNESS-GENERAL[ICD9: 728.87] Diagnosis: HEMIPLEGIANOS SIDE NOS[ICD9: 342.90] Diagnosis: ABNORMALITY OF GAIT[ICD9: 781.2] Cherri HOLGUIN [employer] [facility] CPT-4: 93542 10/18/2012 OFFICE/OUTPATIENT VISIT EST Diagnosis: ABNORMALITY OF GAIT[ICD9: 781.2] Diagnosis: MALAISE AND FATIGUE[ICD9: 780.79] Diagnosis: MUSCLE WEAKNESS-GENERAL[ICD9: 728.87] Cherri Mianramuxuan ALLEN RYLIE Martha HOLGUIN [employer] CPT-4: 46516 09/25/2012 OFFICE/OUTPATIENT VISIT EST Diagnosis: CERVICALGIA[ICD9: 723.1] Diagnosis: ABNORMALITY OF GAIT[ICD9: 781.2] Diagnosis: MUSCLE WEAKNESS-GENERAL[ICD9: 728.87] Cherri Mianramuxuan ALLEN YOUNGBLOOD [employer] [facility] CPT-4: 39713 08/24/2012 ([id number]) OFFICE/OUTPATIENT VISIT EST Diagnosis: URINARY TRACT INFECTION[ICD9: 599.0] Diagnosis: Altered mental state[ICD9: 780.97] Diagnosis: MUSCLE WEAKNESS-GENERAL[ICD9: 728.87] Diagnosis: HEMIPLEGIANOS SIDE NOS[ICD9: 342.90] Diagnosis: Cervicalgia[ICD9: 723.1] Cherri CARIAS [facility] CPT-4: 81208 07/27/2012 OFFICE/OUTPATIENT VISIT EST Diagnosis: URINARY TRACT INFECTION[ICD9: 599.0] Diagnosis: Weakness generalized[ICD9: 780.79] Diagnosis: FEBRILE ILLNESS[ICD9: 780.60] Diagnosis: Vision disturbance[ICD9: 368.9] Tasneem Esquivel CHERRI HOLGUIN [facility] CPT-4: 77519 07/05/2012 OFFICE/OUTPATIENT VISIT EST Diagnosis: CONJUNCTIVITIS NOS[ICD9: 372.30] Diagnosis: MUSCLE WEAKNESS-GENERAL[ICD9: 728.87] Diagnosis: HEMIPLEGIANOS SIDE NOS[ICD9: 342.90] Diagnosis: ABNORMALITY OF GAIT[ICD9: 781.2] [facility] CPT-4: 47344 05/29/2012 ([id number]) OFFICE/OUTPATIENT VISIT EST Diagnosis: MUSCLE WEAKNESS-GENERAL[ICD9: 728.87] Diagnosis: HEMIPLEGIANOS SIDE NOS[ICD9: 342.90] Diagnosis: ABNORMALITY OF GAIT[ICD9: 781.2] Diagnosis: DYSPEPSIA[ICD9: 536.8] Diagnosis: GERD[ICD9: 530.81] [facility] CPT-4: 67020 02/02/2012 ([id number]) OFFICE/OUTPATIENT VISIT EST Diagnosis: MUSCLE WEAKNESS-GENERAL[ICD9: 728.87] Diagnosis: ABNORMALITY OF GAIT[ICD9: 781.2] Diagnosis: GERD[ICD9: 530.81] Cherri HOLGUIN [facility] CPT-4: 35487 11/03/2011 OFFICE/OUTPATIENT VISIT EST Diagnosis: MUSCLE WEAKNESS-GENERAL[ICD9: 728.87] Diagnosis: ABNORMALITY OF GAIT[ICD9: 781.2] Diagnosis: VOMITING ALONE[ICD9: 787.03] Diagnosis: GERD[ICD9: 530.81] Cherri PAPPASNDER DO [facility] CPT-4: 62450 08/25/2011 OFFICE/OUTPATIENT VISIT EST Diagnosis: CONJUNCTIVITIS NOS[ICD9: 372.30] Cherri [facility] CPT-4: 82545 05/27/2011 OFFICE/OUTPATIENT VISIT EST Diagnosis: MUSCLE WEAKNESS-GENERAL[ICD9: 728.87] Diagnosis: ABNORMALITY OF GAIT[ICD9: 781.2] Cherri PAPPASNDER DO [facility] CPT-4: 65762 04/15/2011 OFFICE/OUTPATIENT VISIT EST Diagnosis: MALAISE AND FATIGUE[ICD9: 780.79] Diagnosis: MUSCLE WEAKNESS-GENERAL[ICD9: 728.87] Diagnosis: DEPRESSIVE DISORDER NEC[ICD9: 311] Diagnosis: ABNORMALITY OF GAIT[ICD9: 781.2] Cherri MACHUCA SBelkis ORENDER DO [facility] CPT-4: 74886 03/22/2011 OFFICE/OUTPATIENT VISIT EST Cherri Ezio MACHUCA SBelkis ORE NDER DO [facility] CPT- 4: 59180 02/22/2011 ([id number]) OFFICE/OUTPATIENT VISIT EST Cherriолег MELO [facility] CPT-4: 29145 01/26/2011 ([id number]) OFFICE/OUTPATIENT VISIT, EST Cherri Mianramuxuan [facility] CPT-4: 30239 06/15/2010 ([id number]) OFFICE/OUTPATIENT VISIT, EST Cherri Pathakxuan [facility] CPT-4: 92737 05/04/2010 ([id number]) OFFICE/OUTPATIENT VISIT, EST Cherri Pathakxuan [facility] CPT-4: 37245 03/03/2010 ([id number]) OFFICE/OUTPATIENT VISIT, EST Cherri Mianramuxuan [facility] CPT-4: 95208 10/20/2009 Plan of Care Planned Activity Notes Codes Status Date Visit Diagnosis Plan: Hemiplegia, unspecified affectin g left dominant side Discussion: Shaneka.me video visit done with nurse at [facility] Doing well with new Wheel Chair Follow Up: 2 months ICD-9 : 342.91 ICD-10 : G81.92 02/20/2020 Visit Diagnosis Plan: Gastro-esophageal reflux disease without esophagitis Discussion: Stable ICD-9 : 530.81 ICD-10 : K21.9 02/20/2020 Visit Diagnosis Plan: Left arm cellulitis Discussion: Shaneka. video visit done with nurse at [facility] Start Keflex Continue with clear tegaderm dressing and brian wrap and ice Notify if any worsening ICD-9 : 682.3 ICD-10 : L03.114 12/10/2019 Appointment: Cherri Holguintel: [address] [place] [address] 12/10/2019 Visit Diagnosis Plan: Sacral decubitus ulcer Discussio n: Wound Care seeing this week Follow Up: 2 months ICD-9 : 707.03 ICD-10 : L89.159 12/03/2019 Visit Diagnosis Plan: Constipation Discussion: Shaneka. 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 FOLLOW UP 06/25/2019 [...] ICD-10 : R41.840 02/05/2019 Appointment: Cherri Holguintel: [address] [place], [place] [id number] [place] Confirmed with Nara Hankins 02/02 @ 11:07 am FOL LOW UP 02/05/2019 Appointment: Cherri Holguintel: [address] [place], [place] [id number] [place] NO SHOW 01/24/2019 Visit Diagnosis Plan: Attention and concentration defi cit Discussion: Trial of strattera 10mg daily for 1 week then 25mg daily Recheck 6 weeks Stimulants have caused weight loss in past as patient is also poor, picky eater so with the stimulants her appetite worsens even more ICD-9 : 799.51 ICD-10 : R41.840 12/13/2018 Appointment: Cherri Holguintel: [address] [place], [place] [id number] [place] confirmed with Morena FOLLOW UP 12/13/2018 [...] ICD-10 : R53.83 11/27/2018 Appointment: Cherri Holguintel: [facility] [place] confirmed with Karlee FOLLOW UP 11/27/2018 [...] : K59.01 09/25/2018 Appointment: Cherri Holguin WPtel: [facility]7 [facility] [place] FOLLOW UP 09/25/2018 Visit Diagnosis Plan: [...] 08/03/2018 Visit Diagnosis Plan: Encounter for [facility] adult medical examination with abnormal [...] 08/03/2018 Appointment: Maxine Glasgow [address] Annual Well Visit 08/03/2018 Visit Diagnosis [...] : K21.9 06/22/2018 App[facility]ment[facility] [facility] 06/22/2018 Visit Diagnosis Plan: Gastro-esophageal reflux disease without esophagitis Discussion: Continue aciphex at 20m po daily Recheck 2mos ICD-9 : 530.81 ICD-10 : K21.9 04/06/2018 Appointment: Cherri Holguin [facility]Ptel[facility] [phone] [facility] FO[facility] UP 04/06/2018 Patient Education: Patient Medication Summary Completed 04/06/2018 Appointment: Cherri Holguin WPtel[facility] [phone] [facility] [place] RESCHEDULED 03/07/2018 Visit Diagnosis Plan: Gastro-esophageal reflux disease without esophagitis Discussion: patient had aciphex and prevacid on med list. order written out on patient's list to only give the aciphex as prescribed and not both. follow up in one month to assess medication efficacy and constipation. ICD-9 : 530.81 ICD-10 : K21.9 03/06/2018 Appointment: Maxine Glasgow [address] [facility] 03/06/2018 Patient Education: Patient Medication [...] : F51.01 02/15/2018 Appointment: Cherri Holguin WPtel: [address] [place], [place] [address] [place] FOLLOW UP 02/15/2018 Patient Education: Patient Medication Summary Completed 02/15/2018 Appointment: Cherri Holguin WPtel: [address] [place], [place] [phone] [facility] transportation called, stating that the patient is [...] : M62.81 12/12/2017 Appointment: Cherri Holguin WPtel: [address] [place], [place] [address] [place] FOLLOW UP 12/12/2017 Patient Education: Patient Medication Summary Completed 12/12/2017 Visit Diagnosis Plan: Nondisplaced fract ure of medial malleolus of left tibia, subsequent encounter for closed fracture with delayed healing Discussion: Add miacalcin nasal spray for next 2mos Fwup with ortho Follow Up: 2 months ICD-9 : V54.16 ICD-10 : S82.55XG 10/10/2017 Appointment: Cherri Holguin WPtel: [facility] [place] FOLLOW UP 10/10/2017 Patient Education: Patient Medication Summary Completed 10/10/2017 Appointment: Cherri Holguin WPtel: [address] [place] [address] [place] RESCHEDULED 10/04/2017 Referral: Alvarado Mercado WPtel: [address] [address] [place] Referral Initiated 10/04/2017 Visit Diagnosis Plan: Acute upper respiratory infectio n, unspecified Discussion: continue with tespavel perlmerle as needed. increase fluids. notify if worsening symptoms including shortness of breath or fever. call or rtc later this week if no improvement. instructed patient to perform deep breathing exercises at home. ICD-9 : 465.9 ICD-10 : J06.9 09/19/2017 Appointment: Maxine Glasgow [address] [place] [address] ACUTE ILLNESS 09/19/2017 Patient Education: Patient Medication Summary Completed 09/19/2017 Appointment: Cherri Holguin WPtel: [address] [place], [place] [phone] [place] CANCELED 08/16/2017 Visit Diagnosis Plan: Muscle [...] : L98.8 08/04/2017 Appointment: Cherri Holguin WPtel: [address] [place], [place] [phone] [place] FOLLOW UP 08/04/2017 Patient Education: Patient [...] : Z85.841 07/12/2017 Appointment: Cherri Holguin WPtel: [address] [place], [place] [phone] Follow Up 07/12/2017 Patient Education: Patient Medication Summary Completed 07/12/2017 Visit Diagnosis Plan: 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 Valdes for further debridement Follow Up: 2 months ICD-9 : 707.8 ICD-10 : L98.499 05/30/2017 Visit Diagnosis Plan: Tinea cruris Discussion: Difluca n for 1 week ICD-9 : 110.3 ICD-10 : B35.6 05/30/2017 Appointment: Cherri Holguin WPtel: [address] [place] [address] FOLLOW UP 05/30/2017 Patient Education: Patient Medication Summary Completed 05/30/2017 Visit Diagnosis Plan: Cellulitis of abdominal wall Dis cussion: Finish keflex Referral to wound care ICD-9 : 682.2 ICD-10 : L03.311 05/02/2017 Appointment: Cherri Holguin WPtel: [address] [place], [place] [phone] FOLLOW UP 05/02/2017 Patient Education: Patient Medication Summary Completed 05/02/2017 Referral: Remigio Valdes WPtel: [address] [place], [place] [phone] [place] Referral Initiated 04/05/2017 Visit Diagnosis Plan: Cellulitis of chest wall Discuss ion: Keflex x1 week Continue daily dressing changes ICD-9 : 682.2 ICD-10 : L03.313 02/28/2017 Visit Diagnosis Plan: Muscle weakness (generalized) Di scussion: Stable Follow Up: 2 months ICD-9 : 728.87 ICD-10 : M62.81 02/28/2017 Appointment: Cherri Holguin WPtel: [facility] 02/24 confirmed~sl FOLLOW UP 02/28/2017 Patient Education: Patient Medication Summary Completed 02/28/2017 Visit Diagnosis Plan: Cellulitis of abdominal wall Dis cussion: Healing and improving so will finish all of clindamycin and monitor wounds for any worsening or recurrence ICD-9 : 682.2 ICD-10 : L03.311 12/06/2016 Appointment: Cherri Holguin WPtel: [phone] [facility] WORK IN 12/06/2016 Patient Education: Patient Medication Summary Completed 12/06/2016 Visit Diagnosis Plan: Cutaneous abscess of abdominal w all Discussion: Continue clindamycin and dressing changes To ER this weekend if worsens Fwup with me in 4 days for recheck ICD-9 : 682.2 ICD-10 : L02.211 12/02/2016 Appointment: Cherri Holguin WPtel: [phone] [facility] FOLLOW UP 12/02/2016 Patient Education: Patient Medication Summary Completed 12/02/2016 Visit Diagnosis Plan: Cellulitis of abdominal wall Dis cussion: Continue clindamycin TID f/u in 1 day for abscess under rt breast and LUQ consider hospital admit Follow Up: 1 days ICD-9 : 682.2 ICD-10 : L03.311 12/01/2016 Visit Diagnosis Plan: Cutaneous abscess of abdominal w all Discussion: Continue clindamycin Follow Up: 1 days ICD-9 : 682.2 ICD-10 : L02.211 12/01/2016 Appointment: Cherri Holguintel: [phone] [facility] [place] WORK IN 12/01/2016 Patient Education: Patient Medication Summary Completed 12/01/2016 Visit Diagnosis Plan: Cutaneous abscess of abdominal w all Discussion: Copious amounts of pus expressed until bloody discharge Start clindamycin Recheck tomorrow Erythema outline marked Follow Up: 1 days ICD-9 : 682.2 ICD-10 : L02.211 11/30/2016 Appointment: Cherri Holguin WPtel: [address] [place], [place] [phone] 11/29 confirmed`sl FOLLOW UP 11/30/2016 Patient Education: Patient Medication Summary Completed 11/30/2016 Appointment: Cherri Holguin WPtel: [address] [place], [place] [phone] 11/10 scalp looks ok will discuss at 11/30 appointment~sl RESCHEDULED 11/11/2016 Visit Diagnosis Plan: Muscle weakness (generalized) Di [...] ICD-9 : 909.3 ICD-10 : T85.09XS 10/26/2016 Visit Diagnosis Plan: Slow transit constipation Discus benito: Add colace 100mg po BID and increase water intake ICD-9 : 564.01 ICD-10 : K59.01 10/26/2016 Appointment: Cherri Holguin WPtel: [address] [place], [place] [phone] ACUTE ILLNESS 10/26/2016 Patient Education: Patient Medication Summary Completed 10/26/2016 Patient Education: Patient Medication Summary Completed 10/21/2016 Care Plan: CT HEAD/BRAIN W/O DYE LOINC : 91105-5 Pending 10/21/2016 Visit Diagnosis Plan: Other seborrheic dermatitis Disc ussion: Topical ketoconazole shampoo alternating with selsun blue Follow Up: 2 months ICD-9 : 706.3 ICD-10 : L21.8 09/13/2016 Appointment: Cherri Holguin WPtel: [address] [place], [place] [phone] 09/09 confirm`sl FOLLOW UP 09/13/2016 Patient Education: Patient Medication Summary Completed 09/13/2016 Appointment: Cherri Holguin WPtel: [address] [place], [place] [phone] [place] CANCELED 07/13/2016 Visit Plan: Low-dose CT scan-45 PPD of C hest Check hemoccult Discussed updated CT of head to recheck meningioma Zostavax vaccine Will obtain last colonoscopy results Update lab 07/12/2016 Appointment: Cherri Holguin WPtel: [address] [place], [place] [phone] 07/08 confirmed~sl Annual Well Visit 07/12/2016 Patient Education: Patient Medication Summary Completed 07/12/2016 Visit Plan: Gets teeth extracted next mo nth then getting fitted for dentures so some of poor appetite is due to inability to eat certain things Continue current meds Defers flu shot 05/11/2016 Appointment: Cherri Holguin WPtel: [address] [place] [phone] 05/10 confirmed~sl FOLLOW UP 05/11/2016 Patient Education: Patient Medication Summary Completed 05/11/2016 Visit Plan: Discussed nutrition and poss ible shakes as supplement until gets teeth completely pulled and fitted for full dentures Continue current meds Did have right scalp lesion removed 12/23/2015 Appointment: Cherri Holguin WPtel: [address] [place] [phone] 12/21 confirmed-sp FOLLOW UP 12/23/2015 Patient Education: Patient Medication Summary Completed 12/23/2015 Referral: Tabitha Messer WPtel: [facility] [address] [facility] [place] Spoke with Kayli at [facility] and gave her appt information Initiated 10/07/2015 Visit Plan: Start PT for ROM of neck Dis cussed milkshake in place of meal if does not eat at least 20% of meal--patient states she wants to lose weight and does not like the food served there See dermatology for removal of scalp lesion 09/23/2015 Appointment: Cherri Holguin WPtel: [address] [place] [phone] 09/22/15 appt confirmed with Amber at [facility] FOLLOW UP 09/23/2015 Patient Education: Patient Medication Summary Completed 09/23/2015 Visit Plan: Stop miralax and senokot-s S tart dulcolax daily Patient asking for PT and OT again but admits they don't really help/she doesn't gain much from them 04/15/2015 Appointment: Cherri Holguin WPtel: [address] [place], [place] [phone] 04/11 confirmed with [facility] FOLLOW UP 04/15/2015 Patient Education: Patient Medication Summary Completed 04/15/2015 Visit Plan: Check CBC, CMP, TSH, free T4 , Vit D Continue current meds 01/14/2015 Appointment: Cherri Holguin WPtel: [address] [place], [place] [phone] ACUTE ILLNESS 01/14/2015 Patient Education: Patient Medication Summary Completed 01/14/2015 Visit Plan: Change to Senokot-S 2 po BID Add miralax Has been released by burn center for now 10/29/2014 Appointment: Cherri Holguin WPtel: [address] [place], [place] [phone] 10/28 with Madiha FOLLOW UP 10/29/2014 Patient Education: Patient Medication Summary Completed 10/29/2014 Visit Plan: Patient is wheelchair bound now Continue current meds Patient following with Burn Center at [facility] end of 08/20/2014 Appointment: Cherri Holguin WPtel: [address] [place] [address] MLP rescheduled due to cold weather 08/19 message with Madiha at [facility] FOLLOW U P 08/20/2014 Patient Education: Patient [...] in [place] 06/04/2014 Appointment: Cherri Holguin WPtel: [address] [place], [place] [phone] FOLLOW UP 06/04/2014 Patient Education: Patient Medication Summary Completed 06/04/2014 Visit Plan: Patient sees burn center nex t week Explained importance of taking nutren routinely as needs nutrition Increase prilosec to 20mg po BID Smoking Cessation 05/06/2014 Appointment: Cherri Holguin WPtel: [address] [place], [place] [phone] 05/03 vm on patient phone 05/03 message with Maria L at [facility] Follow Up 05/06/2014 Patient Education: Patient Medication Summary Completed 05/06/2014 Visit Plan: Finish abx Brian wrap to left LE and elevate 08/07/2013 Appointment: Cherri Holguin WPtel: [address] [place], [place] [phone] Urgent/Quick Care Follow Up 07/10 Patient Education: Patient Medication Summary Completed 08/07/2013 Appointment: Cherri Holguin WPtel: [address] [place] [phone] 07/18 appointment confirmed with patient 07/19 NO SHOW FOLLOW UP 07/19/2013 Visit Plan: Continue current meds Contin ue PT 05/23/2013 Appointment: Cherri Holguin WPtel: [address] [place] [phone] 05/22 vm...appt confirmed FOLLOW UP 2012 Patient Education: Patient Medication Summary Completed 05/23/2013 Visit Plan: Long discussion about need f or 24hr care Pt wants to go home 04/25/2013 Appointment: Cherri Holguin WPtel: [address] [place], [place] [phone] Appt confirmed with Augusto at [facility] Follow Up 04/25/2013 Patient Education: Patient Medication Summary Completed 04/25/2013 Appointment: Cherri Holguin WPtel: [address] [place], [place] [phone] 04/20 message left at [facility] FOLLOW UP 04/23/2013 Visit Plan: Continue current meds 01/22/2013 Appointment: Cherri Holguin WPtel: [address] [place] [phone] 01/22 vm left FOLLOW UP 01/22/2013 Patient Education: Patient Medication Summary Completed 01/22/2013 Appointment: Cherri Holguin WPtel: [address] [place], [place] [phone] 11/20 left message...patient called in a t 10:00am and said she was unable to get to her car. She rescheduled for 11/27 11am 11/24 left message 11/29 called to confirm, patient cancell ed due to no ride from [employer] [place]. patient will call [facility] and see when they can bring her and then call us to schedule FOLLOW UP 11/30/2012 Visit Plan: Going to go home at the end of week with caregiver Continue current meds 10/18/2012 Appointment: Cherri Holguin WPtel: [address] [place] [phone] 10/17 appt confirmed with Reyna FOLLOW UP 10/18/2012 Patient Education: Patient Medication Summary Completed 10/18/2012 Visit Plan: Continue and finish PT Sultana nue current meds Fwup October 19 or --pts 100 days is up October 21 09/25/2012 Appointment: Cherri Holguintel: [address] [place] [phone] [place] worked in since [facility] just drop[facility] d her off. She was on shedule at one point but showed it was cancelled WORK IN Appointment: Cherri Holguin WPtel: [address] [place], [place] [phone] 07/17 Cancelled 09/25 Appt - Patient has appointments on 07/08 & 07/27 FOLLOW UP 09/25/2012 Patient Education: Patient Medication Summary Completed 09/25/2012 Visit Plan: Continue current meds Pt wan ts to go home when her 100 days are up 08/24/2012 Appointment: Cherri Holguin WPtel: [address] [place] [phone] FOLLOW UP 08/24/2012 Patient Education: Patient Medication Summary Completed 08/24/2012 Visit Plan: DC tramadol Repeat UA and ch edu UDS Start PT for neck Discussed neurology eval, but pt has been to several in past and even [facility] 07/27/2012 Appointment: Cherri Holguin WPtel: [address] [place] [phone] FOLLOW UP 07/27/2012 Patient Education: Patient Medication Summary Completed 07/27/2012 Appointment: Cherri Holguin WPtel: [address] [place] [phone] 07/17 - left message..07/17 left message with Antonella at [facility] pt has appt tomorrow and on I think the 07/18 appt was scheduled prior to hospitalization. 07/18 no showed. just entered [facility] so no show is forgiven FOLLOW UP 07/18/2012 Appointment: Tasneem Esquivel WPtel: [address] [place], [place] [phone] ACUTE ILLNESS 07/05/2012 Patient Education: Patient Medication Summary Completed 07/05/2012 Appointment: Cherri Holguin WPtel: [address] [place] [phone] FOLLOW UP 05/29/2012 Patient Education: Patient Medication Summary Completed 05/29/2012 Appointment: Cherri Holguin WPtel: [address] [place] [phone] [place] FOLLOW UP 02/02/2012 Patient Education: Patient Medication Summary Completed 02/02/2012 Visit Plan: Continue current meds Check CBC, CMP, TSH, Free T4, B12 11/03/2011 Appointment: Cherri Holguin WPtel: [address] [place] [address] FOLLOW UP 11/03/2011 Patient Education: Patient Medication Summary Completed 11/03/2011 Visit Plan: Adderall refilled Continue c urrent meds 08/25/2011 Appointment: Cherri Holguin WPtel: [address] [place] [address] FOLLOW UP 08/25/2011 Patient Education: Patient Medication Summary Completed 08/25/2011 Appointment: Cherri Holguin WPtel: [address] [place] [address] Appointment was confirmed. FOLLOW UP 08/16 Visit Plan: Esther is eye doctor. Will u se eye drop.(Cipro as she claims allergy (nausea). [facility] Written instructions given for pt. to be seen in follow up by Esther. Written RX also given to pt. for cipro eye drops. Pt. is instructed that the RX has been electronically sent to [facility]. 05/27/2011 Appointment: Tasneem Esquivel WPtel: [address] [place] [address] ACUTE ILLNESS 05/27/2011 Patient Education: Patient Medication Summary Completed 05/27/2011 Visit Plan: Continue increased dose of A dderall 04/15/2011 Appointment: Cherri Holguin WPtel: [address] [place] [address] [place] FOLLOW UP 04/15/2011 Patient Education: Patient Medication Summary Completed 04/15/2011 Appointment: Cherri Holguin WPtel: [address] [place] [address] FOLLOW UP 03/22/2011 Patient Education: Patient Medication Summary Completed 03/22/2011 Appointment: Cherri Holguin WPtel: [address] [place] [phone] [place] FOLLOW UP 02/25/2011 Visit Plan: Trial of Wellbutrin XL 150mg q AM 02/22/2011 Appointment: Cherri Holguin WPtel: [address] [place] [phone] FOLLOW UP 02/22/2011 Patient Education: Patient Medication Summary Completed 02/22/2011 Visit Plan: Continue PT Add Cymbalta 30m g daily 01/26/2011 Appointment: Cherri Holguin WPtel: [address] [place] [address] FOLLOW UP 01/26/2011 Patient Education: Patient Medication Summary Completed 01/26/2011 Visit Plan: Cont current meds and PT Exa m for Power chair completed Adderall rx refilled 06/15/2010 Appointment: Cherri Holguin WPtel: [address] [place] [address] ESTABLISHED PATIENT 06/15/2010 Patient Education: Patient Medication Summary Completed 06/15/2010 Visit Plan: To rehab today for PT/OT--I will follow on rehab unit 05/04/2010 Appointment: Cherri Holguin WPtel: [address] [place], [place] [phone] FOLLOW UP 05/04/2010 Patient Education: Patient Medication Summary Completed 05/04/2010 Visit Plan: Cont PT Cont Forteo Long dis cussion about living home--will discuss with PT when finishes this session 03/03/2010 Appointment: Cherri Holguin WPtel: [address] [place] [address] FOLLOW UP 03/03/2010 Patient Education: Patient Medication Summary Completed 03/03/2010 Visit Plan: EGD by Dr. Dang Pt agrees to restart Forteo 10/20/2009 Appointment: Cherri Holguin WPtel: [address] [place], [place] [phone] FOLLOW UP 10/20/2009 Patient Education: Patient Medication Summary Completed 10/20/2009 Referral: Antonio Gandhi WPtel: [address] [id number] [place] Referral Initiated Instructions Comment . Low-dose [...] meds Patient following with Burn Center at [facility] end of October . Patient is [...] been to several in past and even [facility] . Continue current meds Check CBC, CMP, TSH, Free T4, B12 . Adderall refilled Continue current meds . 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 Will use eye bj p.(Cipro as she claims allergy (nausea). Pt. is accompanied by "grounds keepers" from [facility]. Written instructions given for pt. to be [...]
--- OUTSIDE RECORDS SUMMARY | 2020-03-05 20:44 | XMS REPORT | CCD ---
Author Author Rosario Holguin D.O. Organization [facility] Address [address] [place] [address] Phone Care Team Providers Care Extension Associate Name Role Phone Cherri Holguin D.O., PP Unavailable CCM Unavailable Summary Purpose Interface Exchange Insurance Providers Payer name Policy type / Coverage type Covered libertarian ID Effective Begin Date Effective End Date WPS MEDICARE PART B [place] Medicare Part B [id number] Unknown [facility] Medicare Part B [id number] Unknown [facility] Medicare Part B [id number] Unknown Family History Family History data not found Social History Social History Element Codes Description Effective Dates Tobacco history SNOMED CT: 7554591 Former smoker 04/15/2015 Allergies, Adverse Reactions, Alerts [...] Instructions Tessalon Perles 100 mg capsule RxNorm: 914935 1 Capsule(s) Oral Q8H as needed 12/03/2019 No Stop Date Active glycerin (adult) rectal suppository RxNorm: 1 Cardenas ppository Rectal and Tuesday12/03/2019 No Stop Date Active cyanocobalamin (vit B-12) 1,000 mcg/mL injection solution Rx Norm: 264658 1 Milliliter(s) Intramuscular every 2 weeks 06/26/2019 09/24/2019 Inacti ve cyanocobalamin (vit B-12) 1,000 mcg/mL injection solution Rx Norm: 764300 1 Milliliter(s) Intramuscular every 2 weeks 06/26/2019 06/25/2019 Inacti ve bisacodyl 10 mg rectal suppository RxNorm: 737785 1 Sup pository Rectal QD as needed 05/10/2019 No Stop Date Active glycerin (adult) rectal suppository RxNorm: 5611994 1 Suppositor y RTL BIW 07/25/2018 12/02/2019 Inactive rabeprazole 20 mg tablet,delayed release RxNorm: 985410 1 Table t(s) PO QD 03/01/2018 05/29/2018 Inactive replaces lansoprazol e Adderall XR 10 mg capsule,extended release RxNorm: 141823 1 Cap teresa(s) PO QAM 10/20/2017 12/19/2017 Inactive Tessalon Perles 100 mg capsule RxNorm: 558424 1 Capsule (s) PO TID as needed for cough 09/16/2017 09/30/2019 Inactive Cymbalta 30 mg capsule,delayed release RxNorm: 511615 1 Capsule (s) PO QD 08/17/2017 12/02/2019 Inactive nystatin 100,000 unit/gram topical powder RxNorm: 169753 1 Appl ication TOP BID 08/16/2017 02/14/2018 Inactive Adderall XR 10 mg capsule,extended release RxNorm: 269340 1 Cap teresa(s) PO QAM 08/11/2017 09/09/2017 Inactive Adderall XR 10 mg capsule,extended release RxNorm: 574458 1 Cap teresa(s) PO QAM 08/04/2017 08/03/2017 Inactive Adderall XR 10 mg capsule,extended release RxNorm: 486945 1 Cap teresa(s) PO QAM 08/04/2017 08/10/2017 Inactive Bactrim DS 800 mg-160 mg tablet RxNorm: 644240 1 Tablet(s) PO BID 1 08/28/2016 07/07/2017 Inactive clindamycin 300 mg capsule RxNorm: 417804 2 Capsule(s) PO TID doses for today and tomorrow 11/30/2016 05/01/2017 Inactive ketoconazole 2 % shampoo RxNorm: 045716 1 Application TOP twice a week 09/14/2016 05/01/2017 Inactive hydrocodone 5 mg-acetaminophen 325 mg tablet RxNorm: 469705 1 Tablet(s) PO Q6H as needed for pain 07/12/2016 05/01/2017 Inactive Cipro 250 mg tablet RxNorm: 323482 1 Tablet(s) PO BID 09/29/201509/09 Inactive cefuroxime axetil 250 mg tablet RxNorm: 140183 1 Tablet(s) PO BID 0 09/10/2015 09/16/2015 Inactive Micro-K 8 mEq capsule,extended release RxNorm: 639328 1 Capsule (s) PO QD 08/20/2015 08/16/2017 Inactive Micro-K 8 mEq capsule,extended release RxNorm: 360530 1 Capsule (s) PO QD 08/20/2015 08/19/2015 Inactive Adderall XR 20 mg capsule,extended release RxNorm: 249227 1 Cap teresa(s) PO QAM 04/30/2015 02/11/2016 Inactive hydroxyzine HCl 25 mg tablet RxNorm: 226660 1 Tablet(s) PO Q6H as needed for itching/hives 04/02/2015 09/12/2016 Inactive Miralax 17 gram oral powder packet RxNorm: 298828 17 Gr am(s) PO BID for constipation 02/26/2015 02/11/2016 Inactive Adderall XR 20 mg capsule,extended release RxNorm: 519911 1 Cap teresa(s) PO QAM 07/09/2014 08/07/2014 Inactive Adderall 20 mg tablet RxNorm: 229347 2 Tablet(s) PO QD 02/04/201408/2013 Inactive [AttnRPh: Saving apply/adjudicate RxGRP: SG20 RxBIN:[id number] RxPCN:HT ID#:[id number]] triamcinolone acetonide 0.1 % topical cream RxNorm: 6431371 1 Application TOP BID to affected area as needed 12/12/2013 01/13/2015 Inactive [ AttnRPh: Saving apply/adjudicate RxGRP:SG20 RxBIN:[id number] RxPCN:HT ID#:[id number]] Adderall 20 mg tablet RxNorm: 249284 2 Tablet(s) PO QD 12/04/2013 Inactive [AttnRPh: Saving apply/adjudicate RxGRP: SG20 RxBIN:[id number] RxPCN:HT ID#:[id number]] Adderall 20 mg tablet RxNorm: 549394 2 Tablet(s) PO QD 12/03/2013 Inactive [AttnRPh: Saving apply/adjudicate RxGRP: SG20 RxBIN:[id number] RxPCN:HT ID#:[id number]] Adderall 20 mg tablet RxNorm: 319675 2 Tablet(s) PO QD 11/02/2013 Inactive Adderall 20 mg tablet RxNorm: 391520 2 Tablet(s) PO QD 10/01/2013 Inactive meloxicam 7.5 mg tablet RxNorm: 672853 1 Tablet(s) PO QD 09/24/2013 0 08/19/2014 Inactive lisinopril 20 mg tablet RxNorm: 547771 1 Tablet(s) PO QD 09/24/2013 0 08/19/2014 Inactive Protonix 40 mg tablet,delayed release RxNorm: 598830 1 Tablet(s ) PO QD 09/24/2013 08/19/2014 Inactive Adderall 20 mg tablet RxNorm: 235689 2 Tablet(s) PO QD 08/29/2013 Inactive Adderall 20 mg tablet RxNorm: 927843 2 Tablet(s) PO QD 08/02/2013 Inactive hydroxyzine HCl 25 mg tablet RxNorm: 719641 1 Tablet(s) PO Q6H as needed 06/29/2013 08/19/2014 Inactive Adderall 20 mg tablet RxNorm: 812737 2 Tablet(s) PO QD 05/22/2013 Inactive Protonix 40 mg tablet,delayed release RxNorm: 018460 1 Tablet(s ) PO QD 05/15/2013 09/11/2013 Inactive meloxicam 7.5 mg tablet RxNorm: 915085 1 Tablet(s) PO QD 05/15/2013 0 09/11/2013 Inactive lisinopril 20 mg tablet RxNorm: 786675 1 Tablet(s) PO QD 05/15/2013 0 09/11/2013 Inactive Adderall 20 mg tablet RxNorm: 347304 2 Tablet(s) PO QD 04/02/2013 No Stop Date Active Adderall 20 mg tablet RxNorm: 553050 2 Tablet(s) PO QD 02/27/2013 No Stop Date Active Adderall 20 mg tablet RxNorm: 157563 2 Tablet(s) PO QD 01/22/2013 No Stop Date Active Adderall 20 mg tablet RxNorm: 099467 2 Tablet(s) PO QD 12/28/2012 No Stop Date Active Adderall 20 mg tablet RxNorm: 172740 2 Tablet(s) PO QD 12/01/2012 No Stop Date Active Adderall 20 mg tablet RxNorm: 048936 2 Tablet(s) PO QD 11/01/2012 No Stop Date Active K-Dur 20 mEq tablet,extended release RxNorm: 547408 1 Tablet(s) PO QD 10/19/2012 11/26/2018 Inactive meloxicam 7.5 mg tablet RxNorm: 841729 1 Tablet(s) PO QD 10/19/2012 0 04/16/2013 Inactive Protonix 40 mg tablet,delayed release RxNorm: 334317 1 Tablet(s ) PO QD 10/19/2012 04/16/2013 Inactive lisinopril 20 mg tablet RxNorm: 021161 1 Tablet(s) PO QD 10/19/2012 0 04/16/2013 Inactive Cipro 500 mg tablet RxNorm: 909846 1 Tablet(s) PO BID 07/05/201211/2011 Inactive Adderall XR 20 mg capsule,extended release RxNorm: 528734 2 Cap teresa(s) PO QAM 06/12/2012 07/26/2012 Inactive Adderall XR 20 mg capsule,extended release RxNorm: 217428 2 Cap teresa(s) PO QAM 05/16/2012 06/11/2012 Inactive Adderall XR 20 mg capsule,extended release RxNorm: 500266 2 Cap teresa(s) PO QAM 04/21/2012 05/15/2012 Inactive Adderall XR 20 mg capsule,extended release RxNorm: 442944 2 Cap teresa(s) PO QAM 02/16/2012 03/16/2012 Inactive Enablex 15 mg 24 hr Tab RxNorm: 353213 1 Tablet(s) PO QPM repla mady Vesicare 02/07/2012 05/28/2012 Inactive Enablex 15 mg 24 hr Tab RxNorm: 922366 1 Tablet(s) PO QPM repla mady Vesicare 02/07/2012 08/04/2012 Inactive Protonix 40 mg Tab RxNorm: 644009 1 Tablet(s) PO QD 02/07/20122011 Inactive Protonix 40 mg Tab RxNorm: 278305 1 Tablet(s) PO QD 02/02/20122011 Inactive Enablex 15 mg 24 hr Tab RxNorm: 329095 1 Tablet(s) PO QPM repla mady Vesicare 02/02/2012 02/06/2012 Inactive Adderall XR 20 mg 24 hr Cap RxNorm: 677139 2 Capsule(s) PO QAM 01/0602/15/2012 Inactive Adderall XR 20 mg 24 hr Cap RxNorm: 292251 2 Capsule(s) PO QAM 12/0601/15/2012 Inactive Adderall XR 20 mg 24 hr Cap RxNorm: 327212 2 Capsule(s) PO QAM 11/0612/16/2011 Inactive Adderall XR 20 mg 24 hr Cap RxNorm: 900463 2 Capsule(s) PO QAM 10/0611/17/2011 Inactive Adderall XR 20 mg 24 hr Cap RxNorm: 671037 2 Capsule(s) PO QAM 09/0910/24/2011 Inactive Prevacid 30 mg Cap RxNorm: 794617 1 Capsule(s) PO QD 07/30/201109/27 Inactive Adderall XR 20 mg 24 hr Cap RxNorm: 136196 2 Capsule(s) PO QAM 07/0908/28/2011 Inactive Adderall XR 20 mg 24 hr Cap RxNorm: 995803 2 Capsule(s) PO QAM 06/0807/21/2011 Inactive ciprofloxacin 0.3 % Eye Drops RxNorm: 781872 2 Drop(s) OPH Q2H 05/0905/31/2011 Inactive Adderall XR 20 mg 24 hr Cap RxNorm: 660901 2 Capsule(s) PO QAM 05/08 No Stop Date Active Wellbutrin XL 150 mg 24 hr Tab RxNorm: 430430 1 Tablet(s) PO QAM 04/14/2011 Inactive Vesicare 10 mg Tab RxNorm: 249377 1 Tablet(s) PO QD 12/24/20102011 Inactive Vesicare 10 mg Tab RxNorm: 464048 1 Tablet(s) PO QD 12/21/20102018 Inactive Adderall XR 30 mg 24 hr Cap RxNorm: 075757 1 Capsule(s) PO QD 11/1712/16/2010 Inactive Vesicare 10 mg Tab RxNorm: 602477 1 Tablet(s) PO QD 09/21/20102010 Inactive Adderall XR 30 mg 24 hr Cap RxNorm: 453009 1 Capsule(s) PO 09/17/19 11 10/16/2010 Inactive Adderall XR 30 mg 24 hr Cap RxNorm: 465815 1 Capsule(s) PO QAM 07/0911/26/2018 Inactive Adderall XR 30 mg 24 hr Cap RxNorm: 735701 1 Capsule(s) PO QAM 07/0908/03/2010 Inactive Adderall XR 20 mg 24 hr Cap RxNorm: 607261 2 Capsule(s) PO QD 01/2602/02/2010 Inactive Adderall XR 20 mg 24 hr Cap RxNorm: 025278 1 Capsule(s) PO QD 01/2605/03/2010 Inactive Forteo 20 mcg/dose (600 mcg/2.4 mL) Sub-Q Pen Injector RxNorm: 1 237490 SQ 12/30/2009 01/25/2011 Inactive hyoscyamine 0.125 mg sublingual tablet RxNorm: 2175091 1 Tablet(s) SL Q4H as needed for excessive secretions No Start Date Active Senokot-S 8.6 mg-50 mg tablet RxNorm: 7751813 2 Tablet(s) PO BID No Start Date Active rabeprazole 20 mg tablet,delayed release RxNorm: 576811 1 Table t(s) PO QD No Start Date Active Micro-K 10 10 mEq capsule,extended release RxNorm: 787798 1 Cap teresa(s) PO QD No Start Date Active docusate sodium 100 mg tablet RxNorm: 3839691 1 Tablet(s) PO Q8H as needed No Start Date Active ondansetron HCl 4 mg tablet RxNorm: 295893 1 Tablet(s) PO Q4H a s needed No Start Date Active Vitamin D3 5,000 unit tablet RxNorm: 397435 1 Tablet(s) PO QD No Star t Date Active bisacodyl 5 mg tablet RxNorm: 995857 1 Tablet(s) PO BID as needed N o Start Date Active aspirin 81 mg tablet RxNorm: 014731 1 Tablet(s) PO QD No Start Date Active Multivitamin And Mineral oral RxNorm: oral No Start Date Active Benadryl 1 % topical cream RxNorm: 6351516 TOP as needed for hiv es No Start Date Active K-Dur 20 mEq tablet,extended release RxNorm: 391441 1 Tablet(s) PO QD No Start Date 08/19/2014 Inactive Colace 100 mg capsule RxNorm: 6139027 1 Capsule(s) PO BID No Start Date 01/19/2017 Inactive ketoconazole 2 % shampoo RxNorm: 952608 1 Application TOP twice a week No Start Date 09/13/2016 Inactive ibuprofen 600 mg tablet RxNorm: 701561 1 Tablet(s) PO Q6H as ne eded No Start Date 06/21/2018 Inactive Zaditor 0.025 % Eye Drops RxNorm: 277395 1 Drop(s) OPH BID No Start Date 05/28/2012 Inactive senna 8.6 mg tablet RxNorm: 761514 2 Tablet(s) PO BID No Start Date 0 02/11/2016 Inactive senna 8.6 mg tablet RxNorm: 809611 1 Tablet(s) PO BID No Start Date 0 02/11/2016 Inactive Amoxil 500 mg capsule RxNorm: 069699 1 Capsule(s) PO BID No Start D ate 05/01/2017 Inactive lisinopril 20 mg tablet RxNorm: 748630 1 Tablet(s) PO QD No Start D ate 10/18/2012 Inactive Prevacid 30 mg Capsule, delayed release RxNorm: 722983 1 Capsul e(s) PO QD No Start Date 02/01/2012 Inactive Senokot-S 8.6 mg-50 mg Tab RxNorm: 5295662 2 Tablet(s) PO QD PRN No Start Date 03/02/2010 Inactive Cymbalta 30 mg capsule,delayed release RxNorm: 144511 1 Capsule (s) PO QD No Start Date 08/16/2017 Inactive ketoconazole 2 % topical cream RxNorm: 897632 1 Applica tion TOP BID to scaly eyebrows No Start Date 05/01/2017 Inactive lorazepam 0.5 mg tablet RxNorm: 124922 1 Tablet(s) PO Q4H as ne eded No Start Date 06/21/2018 Inactive Vitamin C 500 mg tablet RxNorm: 961172 1 Tablet(s) PO QD No Start D ate 01/21/2013 Inactive albuterol sulfate 2.5 mg/3 mL (0.083 %) Neb Solution RxNorm: 625353 Milliliter(s) INH 1 vial in nebulizer every 4 hours as needed No Start Date 01/21/2013 Inactive Adderall XR 20 mg 24 hr Cap RxNorm: 176056 1 Capsule(s) PO QAM No S tart Date 01/25/2011 Inactive Xanax 0.25 mg Tab RxNorm: 736741 1/2 Tablet(s) PO BID PRN No Start Date 03/02/2010 Inactive Tylenol Extra Strength 500 mg Tab RxNorm: 329152 2 Tablet(s) PO PRN No Start Date 08/24/2011 Inactive Adderall 20 mg tablet RxNorm: 764033 2 Tablet(s) PO QD No Start Date 10/31/2012 Inactive bisacodyl 5 mg tablet,delayed release RxNorm: 915419 1 Tablet(s) PO Q12H as needed No Start Date 02/04/2019 Inactive Tessalon Perles 100 mg capsule RxNorm: 847946 1 Capsule (s) PO TID as needed for cough No Start Date 09/15/2017 Inactive Vitamin D3 1,000 unit tablet RxNorm: 023812 3 Tablet(s) PO QD No St art Date 02/22/2017 Inactive meloxicam 7.5 mg tablet RxNorm: 206058 1 Tablet(s) PO QD No Start D ate 10/18/2012 Inactive Bactroban 2 % topical ointment RxNorm: 127798 1 Application TOP QD No Start Date 12/11/2017 Inactive Toviaz 8 mg 24 hr Tab RxNorm: 983876 1 Tablet(s) PO QD No Start Date 09/21/2010 Inactive Prevacid 15 mg capsule,delayed release RxNorm: 749444 Capsule(s ) PO QD No Start Date 02/28/2018 Inactive K-Dur 20 mEq tablet,extended release RxNorm: 6224504 1 Tablet(s) PO QD No Start Date 10/18/2012 Inactive Adderall XR 20 mg 24 hr Cap RxNorm: 345687 2 Capsule(s) PO QAM No S tart Date 05/24/2011 Inactive Calcium with Vitamin D 600 mg-400 unit Tab RxNorm: 584911 1 Tab let(s) PO QD No Start Date 08/24/2011 Inactive Miralax 17 gram oral powder packet RxNorm: 398831 17 Gram(s) PO BID as needed No Start Date 11/26/2018 Inactive Zestril 10 mg Tab RxNorm: 228230 1 Tablet(s) PO QD No Start Date 10/06 Inactive baclofen 10 mg tablet RxNorm: 563038 1 Tablet(s) PO QHS No Start Da te 09/11/2015 Inactive Tums 500 Oral RxNorm: Oral No Start Date 01/13/2015 Inactive Senokot-S 8.6 mg-50 mg tablet RxNorm: 5528686 1 Tablet(s) PO BID No Start Date 11/26/2018 Inactive Prozac 10 mg Tab RxNorm: 288472 1 Capsule(s) PO QD No Start Date 10/06 Inactive Elavil 10 mg tablet RxNorm: 166788 1 Tablet(s) PO QHS No Start Date 0 12/12/2018 Inactive Dulcolax Stool Softener (docusate) 100 mg capsule RxNorm: 12 82100 1 Capsule(s) PO Q8H as needed No Start Date 01/19/2017 Inactive Adderall XR 30 mg 24 hr Cap RxNorm: 156747 1 Capsule(s) PO QAM No S tart Date 04/14/2011 Inactive Milk of Alexa-Maury 15.25 % oral suspension RxNorm: oral No Start Date 11/26/2018 Inactive Tylenol 325 mg tablet RxNorm: 079398 2 Tablet(s) PO Q4H as needed N o Start Date 11/26/2018 Inactive Prilosec 20 mg capsule,delayed release RxNorm: 683832 1 Capsule (s) PO BID No Start Date 09/08/2014 Inactive Tylenol 8 Hour 650 mg tablet,extended release RxNorm: 325853 0 1 Tablet(s) PO Q4H as needed No Start Date 11/26/2018 Inactive Vitamin D3 2,000 unit tablet RxNorm: 189351 1 Tablet(s) PO QD No St art Date 02/22/2017 Inactive nystatin 100,000 unit/gram topical powder RxNorm: 612544 1 Appl ication TOP BID No Start Date 08/15/2017 Inactive morphine 20 mg/5 mL (4 mg/mL) oral solution RxNorm: 651506 .25 Milliliter(s) PO Q4H as needed No Start Date 09/24/2018 Inactive Forteo 20 mcg/dose (750 mcg/3 mL) Sub-Q Pen Injector RxNorm: 143 5115 SQ QD No Start Date 01/21/2010 Inactive ciprofloxacin 0.3 % Eye Drops RxNorm: 887051 2 Drop(s) OPH TID to affected eye No Start Date 08/23/2012 Inactive bisacodyl 5 mg tablet RxNorm: 625233 1 Tablet(s) PO BID No Start Da te 02/11/2016 Inactive Avosil 2 %-0.2 % topical ointment RxNorm: 1 Appl ication TOP Q8H as needed to burn sites No Start Date 11/26/2018 Inactive Milk of Sarahesia 800 mg/5 mL oral suspension RxNorm: 269209 Milliliter(s) PO as needed No Start Date 06/20/2018 Inactive Atarax 25 mg tablet RxNorm: 056199 1 Tablet(s) PO Q4H prn itchi ng/hives No Start Date 08/24/2011 Inactive Adderall XR 30 mg 24 hr Cap RxNorm: 207182 1 Capsule(s) PO QAM No S tart Date 07/26/2010 Inactive Prevacid 30 mg Cap RxNorm: 523902 1 Capsule(s) PO QD No Start Date Inactive Vitamin C 500 mg tablet RxNorm: 020266 1 Tablet(s) PO BID No Start Date 07/11/2016 Inactive Vistaril 25 mg capsule RxNorm: 181573 1 Capsule(s) PO Q4H PRN No St art Date 03/02/2010 Inactive tramadol 50 mg tablet RxNorm: 969332 1 Tablet(s) PO TID as need ed for pain No Start Date 01/21/2013 Inactive Multivitamin & Mineral Formula tablet RxNorm: 1 Tablet(s) PO Q D No Start Date 06/22/2018 Inactive hydrocodone 5 mg-acetaminophen 325 mg tablet RxNorm: 596766 1 Tablet(s) PO Q4H as needed for pain No Start Date 06/24/2019 Inactive Multivitamin & Mineral Formula Oral RxNorm: Oral No Start Da te 03/02/2010 Inactive Miralax 17 gram oral powder packet RxNorm: 962283 17 Gr am(s) PO QPM for constipation No Start Date 02/25/2015 Inactive Percocet 5 mg-325 mg tablet RxNorm: 2003231 1-2 Tablet(s) PO Q4H as needed No Start Date 09/24/2018 Inactive triamcinolone acetonide 0.1 % topical cream RxNorm: 5547227 1 Application TOP TID to affected area as needed No Start Date 12/12/2013 Inactive rabeprazole 20 mg tablet,delayed release RxNorm: 155616 1 Table t(s) PO QD No Start Date 09/24/2018 Inactive Protonix 40 mg tablet,delayed release RxNorm: 957427 1 Tablet(s ) PO QD No Start Date 10/18/2012 Inactive Mobic 7.5 mg Tab RxNorm: 787471 1 Tablet(s) PO BID No Start Date 10/06 Inactive Sinemet CR 50 mg-200 mg Tab RxNorm: 202823 1 Tablet(s) PO QD No Sta rt Date 03/02/2010 Inactive Adderall XR 20 mg 24 hr Cap RxNorm: 741348 2 Capsule(s) PO QD No St art Date 02/02/2010 Inactive Medication Administered No Medication Administered data Immunizations No Immunization data Results Observation Observation Code Item Item Code Result Date S vice Location COMPLETE BLOOD COUNT [id number] WBC 7.3 10e9/L 05/29/20 12 Unknown COMPLETE BLOOD COUNT [id number] RBC 5.20 10e12/L 2011 Unknown COMPLETE BLOOD COUNT [id number] HGB 15.3 g/dL 2 Unknown COMPLETE BLOOD COUNT [id number] HCT DET 45.9 % 2 Unknown COMPLETE BLOOD COUNT [id number] MCV 88.3 fL 2 Unknown COMPLETE BLOOD COUNT [id number] MCH 29.4 pg 2 Unknown COMPLETE BLOOD COUNT [id number] MCHC 33.3 g/dL 2 Unknown COMPLETE BLOOD COUNT [id number] PLT 341 10e9/L 05/29/20 12 Unknown COMPLETE BLOOD COUNT [id number] MPV 10.1 fL 2 Unknown COMPLETE BLOOD COUNT [id number] ASHLEY % 63.2 % 2 Unknown COMPLETE BLOOD COUNT [id number] LY % 27.4 % 2 Unknown COMPLETE BLOOD COUNT [id number] MON % 7.6 % 2 Unknown COMPLETE BLOOD COUNT [id number] EOS % 1.5 % 2 Unknown COMPLETE BLOOD COUNT [id number] BASO % 0.3 % 2 Unknown COMPLETE BLOOD COUNT [id number] RDW 13.6 % 2 Unknown COMPLETE BLOOD COUNT [id number] ABS ASHLEY 4.61 10e9/L 012 Unknown COMPLETE BLOOD COUNT [id number] ABS LYMPH 2.00 10e9/L 012 Unknown COMPLETE BLOOD COUNT [id number] ABS MONO 0.55 10e9/L 012 Unknown COMPLETE BLOOD COUNT [id number] ABS EOS 0.11 10e9/L 012 Unknown COMPLETE BLOOD COUNT [id number] ABS BASO 0.02 10e9/L 012 Unknown COMPLETE BLOOD COUNT [id number] RDW-SD 43.5 fL 2 Unknown THYROID STIMULATING HORMONE 16593 TSH 1.487 uIU/ML 05/29/2012 Unknown GFR CALC [id number] GFR AA >60 ML/MIN 05/29/2012 Unknown GFR CALC [id number] GFR NON-AA >60 ML/MIN 05/29/2012 Unknown FREE T4 58153 FREE T4 1.20 NG/DL 05/29/2012 Unknown COMPREHENSIVE METABOLIC 28266 AST 17 U/L 2011 Unknown COMPREHENSIVE METABOLIC 36675 ALT 16 IU/L 2011 Unknown COMPREHENSIVE METABOLIC 92533 BUN 9 MG/DL 2011 Unknown COMPREHENSIVE METABOLIC 34291 ALBUMIN 4.1 GM/DL 2011 Unknown COMPREHENSIVE METABOLIC 34125 CHLORIDE 106 MMOL/L 05/29 Unknown COMPREHENSIVE METABOLIC 31850 BILI TOT 0.4 MG/DL 2011 Unknown COMPREHENSIVE METABOLIC 34468 ALK PHOS 87 U/L 2011 Unknown COMPREHENSIVE METABOLIC 29617 SODIUM 142 MMOL/L 05/29 Unknown COMPREHENSIVE METABOLIC 88280 CREATININE 0.79 MG/DL 05/09 Unknown COMPREHENSIVE METABOLIC 60720 CALCIUM 9.2 MG/DL 2011 Unknown COMPREHENSIVE METABOLIC 09407 POTASSIUM 3.6 MMOL/L 05/29 Unknown COMPREHENSIVE METABOLIC 68474 PROT TOT 6.5 GM/DL 2011 Unknown COMPREHENSIVE METABOLIC 74964 Glucose 78 MG/DL 2011 Unknown COMPREHENSIVE METABOLIC 28025 BICARB 27 MMOL/L 2011 Unknown COMPREHENSIVE METABOLIC 10046 ANION GAP 9 MEQ/L 2011 Unknown Procedures Procedure Codes Date PPPS, subseq visit CPT-4: G0439 08/03/2018 PPPS, subseq visit CPT-4: G0439 07/12/2016 CUR TOBACCO NON-USER CPT-4: G8457 04/15/2015 URINALYSIS NONAUTO W/O SCOPE CPT-4: 74819 07/05/2012 URINE CULTURE/ COLONY COUNT CPT-4: 64473 07/05/2012 PRESCRIP TRANSMIT VIA ERX SY CPT-4: G8553 07/05/2012 ROUTINE VENIPUNCTURE CPT-4: 86507 05/29/2012 ASSAY OF FREE THYROXINE CPT-4: 40521 05/29/2012 ASSAY THYROID STIM HORMONE CPT-4: 80156 05/29/2012 COMPREHEN METABOLIC PANEL CPT-4: 15351 05/29/2012 COMPLETE CBC W/AUTO DIFF WBC CPT-4: 91023 05/29/2012 PRESCRIP TRANSMIT VIA ERX SY CPT-4: G8553 05/29/2012 PRESCRIP TRANSMIT VIA ERX SY CPT-4: G8553 02/02/2012 PRESCRIP TRANSMIT VIA ERX SY CPT-4: G8553 05/27/2011 PRESCRIP TRANSMIT VIA ERX SY CPT-4: G8553 02/22/2011 SERVICE REQUIRED FOR PMD CPT-4: G0372 06/15/2010 ROUTINE VENIPUNCTURE CPT-4: 86326 10/20/2009 Vital Signs Date Vital 02/20/2020 Blood [...] 1: 114/66 Code: 8480-6 BMI: 25.8 Code: 64429-4 Heart Rate 1: 72 bpm Height: 5'2" [...] 1: 122/80 Code: 8480-6 BMI: 24.9 Code: 81071-5 Heart Rate 1: 100 bpm Height: 5'2" Respiratory Rate: 20 bpm Temperature: 37 .1 (C) / 98.8 (F) Weight: 136 lbs 11/03/2011 Blood Pressure 1: 104/60 Code: 8480-6 BMI: 24.1 Code: 20876-6 Heart Rate 1: 88 bpm Height: 5'2" Respiratory Rate: 20 bpm Temperature: 36 .6 (C) / 97.8 (F) Weight: 132 lbs 08/25/2011 Blood Pressure 1: 128/86 Code: 8480-6 BMI: 24.9 Code: 94017-8 Heart Rate 1: 76 bpm Height: 5'2" Respiratory Rate: 20 bpm Temperature: 36 .2 (C) / 97.2 (F) Weight: 136 lbs 05/27/2011 Blood Pressure 1: 130/90 Code: 8480-6 BMI: 25.1 Code: 39724-2 Heart Rate 1: 68 bpm Height: 5'2" [...] 1: 114/70 Code: 8480-6 BMI: 22.9 Code: 19082-9 Heart Rate 1: 92 bpm Height: 5'2" [...] N/V Encounters Encounter Performer Location Codes Date ([id number]) OFFICE/OUTPATIENT VISIT EST Diagnosis: Hemiplegia, unspecified affecting left dominant side[ICD10: G81.92] Diagnosis: Gastro-esophageal reflux disease without esophagitis[ICD10: K21.9] Diagnosis: Muscle weakness (generalized)[ICD10: M62.81] Cherri [facility] CPT-4: 09762 02/20/2020 ([id number]) OFFICE/OUTPATIENT VISIT EST Diagnosis: Left arm cellulitis[ICD10: L03.114] Diagnosis: Skin tear of left upper extremity[ICD10: S41.112A] Cherri Thomas [facility] CPT-4: 88463 12/10/2019 ([id number]) OFFICE/OUTPATIENT VISIT EST Diagnosis: Constipation[ICD10: K59.00] Diagnosis: Sacral decubitus ulcer[ICD10: L89.159] Cherri Thomas [facility] CPT-4: 77191 12/03/2019 ([id number]) OFFICE/OUTPATIENT VISIT EST 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] Diagnosis: Muscle weakness (generalized)[ICD10: M62.81] Cherri [facility] DO [facility] CPT-4: 88932 10/01/2019 ([id number]) OFFICE/OUTPATIENT VISIT EST Diagnosis: Personal history of malignant neoplasm of brain[ICD10: Z85.841] Diagnosis: Muscle weakness (generalized)[ICD10: M62.81] Diagnosis: Hemiplegia, unspecified affecting left dominant side[ICD10: G81.92] Diagnosis: Contracture, 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] Cherri [facility] CPT-4: 72460 06/25/2019 ([id number]) OFFICE/OUTPATIENT VISIT EST Diagnosis: Attention and concentration deficit[ICD10: R41.840] Diagnosis: Abnormal weight loss[ICD10: R63.4] Cherri [facility]GU[facility] CPT-4: 75730 02/05/2019 ([id number]) OFFICE/OUTPATIENT VISIT EST Diagnosis: Attention and concentration deficit[ICD10: R41.840] Cherri HOLGUIN [facility] CPT-4: 05720 12/13/2018 ([id number]) OFFICE/OUTPATIENT VISIT EST Diagnosis: Laceration without foreign body of left upper arm, sequela[ICD10: S41.112S] Diagnosis: Other fatigue[ICD10: R53.83] Cherri HOLGUIN [facility] CPT-4: 27950 11/27/2018 ([id number]) OFFICE/OUTPATIENT VISIT EST Diagnosis: Gastro-esophageal reflux disease without esophagitis[ICD10: K21.9] Diagnosis: Contracture, 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] Diagnosis: Slow transit constipation[ICD10: K59.01] Cherri HOLGUIN [facility] CPT-4: 32054 09/25/2018 ([id number]) OFFICE/OUTPATIENT VISIT EST Diagnosis: Gastro-esophageal reflux disease without esophagitis[ICD10: K21.9] Diagnosis: Muscle weakness (generalized)[ICD10: M62.81] Maxine HOLGUIN DO [facility] CPT-4: 78053 06/22/2018 ([id number]) OFFICE/OUTPATIENT VISIT EST Diagnosis: Gastro-esophageal reflux disease without esophagitis[ICD10: K21.9] Cherri HOLGUIN DO [facility] CPT-4: 06369 04/06/2018 ([id number]) OFFICE/OUTPATIENT VISIT EST Diagnosis: Gastro-esophageal reflux disease without esophagitis[ICD10: K21.9] Maxine HOLGUIN DO [facility] CPT-4: 15472 03/06/2018 ([id number]) OFFICE/OUTPATIENT VISIT EST Diagnosis: 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] Diagnosis: Gastro-esophageal reflux disease without esophagitis[ICD10: K21.9] Diagnosis: Slow transit constipation[ICD10: K59.01] Diagnosis: Primary insomnia[ICD10: F51.01] Cherri HOLGUIN [facility] CPT-4: 36795 02/15/2018 ([id number]) OFFICE/OUTPATIENT VISIT EST Diagnosis: Muscle weakness (generalized)[ICD10: M62.81] Diagnosis: Gastro-esophageal reflux disease without esophagitis[ICD10: K21.9] Cherri HOLGUIN DO [facility] CPT-4: 22805 12/12/2017 ([id number]) OFFICE/OUTPATIENT VISIT EST Diagnosis: Nondisplaced fracture of medial malleolus of left tibia, subsequent encounter for closed fracture with delayed healing[ICD10: S82.55XG] Cherri HOLGUIN DO [facility] CPT-4: 49021 10/10/2017 OFFICE/OUTPATIENT VISIT EST Diagnosis: Acute upper respiratory infection, unspecified[ICD10: J06.9] Maxine HOLGUIN DO [facility] CPT-4: 95084 09/19/2017 ([id number]) OFFICE/OUTPATIENT VISIT EST Diagnosis: Muscle weakness (generalized)[ICD10: M62.81] Diagnosis: Other specified disorders of the skin and subcutaneous tissue[ICD10: L98.8] Cherri HOLGUIN DO [facility] CPT-4: 52540 08/04/2017 ([id number]) OFFICE/OUTPATIENT VISIT EST Diagnosis: Unspecified open wound of abdominal wall, left upper quadrant with penetration into peritoneal cavity, sequela[ICD10: S31.601S] Diagnosis: Muscle weakness (generalized)[ICD10: M62.81] Diagnosis: Personal history of malignant neoplasm of brain[ICD10: Z85.841] Cherri HOLGUIN DO [facility] CPT-4: 40934 07/12/2017 ([id number]) OFFICE/OUTPATIENT VISIT EST Diagnosis: Non-pressure chronic ulcer of skin of other sites with unspecified severity[ICD10: L98.499] Diagnosis: Tinea cruris[ICD10: B35.6] Cherri [facility] CPT-4: 30850 05/30/2017 ([id number]) OFFICE/OUTPATIENT VISIT EST Diagnosis: Cellulitis of abdominal wall[ICD10: L03.311] Diagnosis: Cellulitis of chest wall[ICD10: L03.313] Cherri HOLGUIN DO [facility] CPT-4: 83445 05/02/2017 ([id number]) OFFICE/OUTPATIENT VISIT EST Diagnosis: Cellulitis of chest wall[ICD10: L03.313] Diagnosis: Muscle weakness (generalized)[ICD10: M62.81] Cherri HOLGUIN DO [facility] CPT-4: 21349 02/28/2017 ([id number]) OFFICE/OUTPATIENT VISIT EST Diagnosis: Cellulitis of abdominal wall[ICD10: L03.311] Cherri HOLGUIN DO [facility] CPT-4: 82170 12/06/2016 OFFICE/OUTPATIENT VISIT EST Diagnosis: Cutaneous abscess of abdominal wall[ICD10: L02.211] Diagnosis: Cellulitis of abdominal wall[ICD10: L03.311] Cherri HOLGUIN DO [facility] CPT-4: 80415 12/02/2016 ([id number]) OFFICE/OUTPATIENT VISIT EST Diagnosis: Cellulitis of abdominal wall[ICD10: L03.311] Diagnosis: Cutaneous abscess of abdominal wall[ICD10: L02.211] Cherri HOLGUIN DO [facility] CPT-4: 75997 12/01/2016 ([id number]) OFFICE/OUTPATIENT VISIT EST Diagnosis: Cutaneous abscess of abdominal wall[ICD10: L02.211] Diagnosis: Cellulitis of abdominal wall[ICD10: L03.311] Cherri HOLGUIN [facility] CPT-4: 72998 11/30/2016 ([id number]) OFFICE/OUTPATIENT VISIT EST Diagnosis: Muscle weakness (generalized)[ICD10: M62.81] Diagnosis: Slow transit constipation[ICD10: K59.01] Diagnosis: 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, 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] Cherri HOLGUIN [facility] CPT-4: 91939 10/26/2016 ([id number]) OFFICE/OUTPATIENT VISIT EST Diagnosis: Other seborrheic dermatitis[ICD10: L21.8] Cherri HOLGUIN [facility] CPT-4: 99045 09/13/2016 ([id number]) OFFICE/OUTPATIENT VISIT EST Diagnosis: Contracture, 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] Diagnosis: Nicotine dependence, cigarettes, uncomplicated[ICD10: F17.210] Diagnosis: Hemiplegia, unspecified affecting unspecified side[ICD10: G81.90] Diagnosis: Muscle weakness (generalized)[ICD10: M62.81] Cherriолег Pappasramuxuan HOLGUIN [facility] CPT-4: 98917 05/11/2016 ([id number]) OFFICE/OUTPATIENT VISIT EST Diagnosis: Muscle weakness (generalized)[ICD10: M62.81] Diagnosis: Abnormal weight loss[ICD10: R63.4] [facility]: 18648 12/23/2015 ([id number]) OFFICE/OUTPATIENT VISIT EST Diagnosis: Torticollis[ICD10: M43.6] Diagnosis: Cervicalgia[ICD10: M54.2] Diagnosis: Basal cell carcinoma of skin, unspecified[ICD10: C44.91] Cherri HOLGUIN [facility] CPT-4: 53031 09/23/2015 ([id number]) OFFICE/OUTPATIENT VISIT EST Diagnosis: Constipation[ICD9: 564.00] Diagnosis: MUSCLE WEAKNESS-GENERAL[ICD9: 728.87] Cherri HOLGUIN [facility] CPT-4: 92833 04/15/2015 ([id number]) OFFICE/OUTPATIENT VISIT EST Diagnosis: MALAISE AND FATIGUE[ICD9: 780.79] Diagnosis: 3RD DEGREE BURN[ICD9: 949.3] Cherri HOLGUIN DO [facility] CPT-4: 34427 01/14/2015 ([id number]) OFFICE/OUTPATIENT VISIT EST Diagnosis: Constipation[ICD9: 564.00] Diagnosis: MUSCLE WEAKNESS-GENERAL[ICD9: 728.87] Diagnosis: 3RD DEGREE BURN[ICD9: 949.3] Cherri HOLGUIN [facility] CPT-4: 54566 10/29/2014 ([id number]) OFFICE/OUTPATIENT VISIT EST Diagnosis: Weakness generalized[ICD9: 780.79] Diagnosis: 3RD DEGREE BURN[ICD9: 949.3] Cherri OHLGUIN [facility] CPT-4: 96709 08/20/2014 ([id number]) OFFICE/OUTPATIENT VISIT EST Diagnosis: 3RD DEGREE BURN[ICD9: 949.3] Diagnosis: DYSPHAGIA NEC[ICD9: 787.29] Cherri Pappasramuxuan CHERRI EarlBelkis Jaquan XENIA [facility] CPT-4: 39824 06/04/2014 ([id number]) OFFICE/OUTPATIENT VISIT EST Diagnosis: 3RD DEGREE BURN[ICD9: 949.3] Diagnosis: Complication of skin graft[ICD9: 996.52] Diagnosis: TOBACCO USE DISORDER[ICD9: 305.1] Cherri Mianrl Franklin EarlBelkis EZIO [facility] CPT-4: 64214 05/06/2014 ([id number]) OFFICE/OUTPATIENT VISIT EST Diagnosis: CELLULITIS[ICD9: 682.9] Cherri Mianrl MACHUCA EarlBelkis LAWSON BRUNSON [facility] CPT-4: 82421 08/07/2013 ([id number]) OFFICE/OUTPATIENT VISIT EST Diagnosis: MUSCLE WEAKNESS-GENERAL[ICD9: 728.87] Diagnosis: MALAISE AND FATIGUE[ICD9: 780.79] Diagnosis: ABNORMALITY OF GAIT[ICD9: 781.2] Cherri HOLGUIN [facility] CPT-4: 78898 05/23/2013 ([id number]) OFFICE/OUTPATIENT VISIT EST Diagnosis: MALAISE AND FATIGUE[ICD9: 780.79] Diagnosis: MUSCLE WEAKNESS-GENERAL[ICD9: 728.87] Diagnosis: HEMIPLEGIANOS SIDE NOS[ICD9: 342.90] Diagnosis: 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] Cherri HOLGUIN [facility] CPT-4: 40788 04/25/2013 ([id number]) OFFICE/OUTPATIENT VISIT EST Diagnosis: MUSCLE WEAKNESS-GENERAL[ICD9: 728.87] Diagnosis: ABNORMALITY OF GAIT[ICD9: 781.2] Diagnosis: MALAISE AND FATIGUE[ICD9: 780.79] Cherri BYERS Noemi Martha HOLGUIN [facility] CPT-4: 75992 01/22/2013 OFFICE/OUTPATIENT VISIT EST Diagnosis: MALAISE AND FATIGUE[ICD9: 780.79] Diagnosis: MUSCLE WEAKNESS-GENERAL[ICD9: 728.87] Diagnosis: HEMIPLEGIANOS SIDE NOS[ICD9: 342.90] Diagnosis: ABNORMALITY OF GAIT[ICD9: 781.2] Cherri HOLGUIN [facility] CPT-4: 68518 10/18/2012 OFFICE/OUTPATIENT VISIT EST Diagnosis: ABNORMALITY OF GAIT[ICD9: 781.2] Diagnosis: MALAISE AND FATIGUE[ICD9: 780.79] Diagnosis: MUSCLE WEAKNESS-GENERAL[ICD9: 728.87] Cherri Mianramuxuan ALLEN RYLIE Martha HOLGUIN [facility] CPT-4: 46262 09/25/2012 OFFICE/OUTPATIENT VISIT EST Diagnosis: CERVICALGIA[ICD9: 723.1] Diagnosis: ABNORMALITY OF GAIT[ICD9: 781.2] Diagnosis: MUSCLE WEAKNESS-GENERAL[ICD9: 728.87] Cherri Mianramuxuan ALLEN YOUNGBLOOD EarlBelkis [facility] CPT-4: 91468 08/24/2012 ([id number]) OFFICE/OUTPATIENT VISIT EST Diagnosis: URINARY TRACT INFECTION[ICD9: 599.0] Diagnosis: Altered mental state[ICD9: 780.97] Diagnosis: MUSCLE WEAKNESS-GENERAL[ICD9: 728.87] Diagnosis: HEMIPLEGIANOS SIDE NOS[ICD9: 342.90] Diagnosis: Cervicalgia[ICD9: 723.1] Cherri CARIAS [facility] CPT-4: 46146 07/27/2012 OFFICE/OUTPATIENT VISIT EST Diagnosis: URINARY TRACT INFECTION[ICD9: 599.0] Diagnosis: Weakness generalized[ICD9: 780.79] Diagnosis: FEBRILE ILLNESS[ICD9: 780.60] Diagnosis: Vision disturbance[ICD9: 368.9] Tasneem Esquivel CHERRI HOLGUIN [facility] CPT-4: 05991 07/05/2012 OFFICE/OUTPATIENT VISIT EST Diagnosis: CONJUNCTIVITIS NOS[ICD9: 372.30] Diagnosis: MUSCLE WEAKNESS-GENERAL[ICD9: 728.87] Diagnosis: HEMIPLEGIANOS SIDE NOS[ICD9: 342.90] Diagnosis: ABNORMALITY OF GAIT[ICD9: 781.2] [facility]: 60590 05/29/2012 ([id number]) OFFICE/OUTPATIENT VISIT EST Diagnosis: MUSCLE WEAKNESS-GENERAL[ICD9: 728.87] Diagnosis: HEMIPLEGIANOS SIDE NOS[ICD9: 342.90] Diagnosis: ABNORMALITY OF GAIT[ICD9: 781.2] Diagnosis: DYSPEPSIA[ICD9: 536.8] Diagnosis: GERD[ICD9: 530.81] [facility] CPT-4: 10832 02/02/2012 ([id number]) OFFICE/OUTPATIENT VISIT EST Diagnosis: MUSCLE WEAKNESS-GENERAL[ICD9: 728.87] Diagnosis: ABNORMALITY OF GAIT[ICD9: 781.2] Diagnosis: GERD[ICD9: 530.81] Cherri HOLGUIN [facility] CPT-4: 47238 11/03/2011 OFFICE/OUTPATIENT VISIT EST Diagnosis: MUSCLE WEAKNESS-GENERAL[ICD9: 728.87] Diagnosis: ABNORMALITY OF GAIT[ICD9: 781.2] Diagnosis: VOMITING ALONE[ICD9: 787.03] Diagnosis: GERD[ICD9: 530.81] Cherri PAPPASNDER DO [facility] CPT-4: 08061 08/25/2011 OFFICE/OUTPATIENT VISIT EST Diagnosis: CONJUNCTIVITIS NOS[ICD9: 372.30] [facility]ri [facility] CPT-4: 27887 05/27/2011 OFFICE/OUTPATIENT VISIT EST Diagnosis: MUSCLE WEAKNESS-GENERAL[ICD9: 728.87] Diagnosis: ABNORMALITY OF GAIT[ICD9: 781.2] Cherri PAPPASNDER DO [facility] CPT-4: 19029 04/15/2011 OFFICE/OUTPATIENT VISIT EST Diagnosis: MALAISE AND FATIGUE[ICD9: 780.79] Diagnosis: MUSCLE WEAKNESS-GENERAL[ICD9: 728.87] Diagnosis: DEPRESSIVE DISORDER NEC[ICD9: 311] Diagnosis: ABNORMALITY OF GAIT[ICD9: 781.2] Cherri MACHUCA SBelkis ORENDER DO [facility] CPT-4: 43932 03/22/2011 OFFICE/OUTPATIENT VISIT EST Cherri Ezio MACHUCA SBelkis ORE NDER DO [facility] CPT- 4: 59684 02/22/2011 ([id number]) OFFICE/OUTPATIENT VISIT EST Cherriолег MELO [facility] CPT-4: 60232 01/26/2011 ([id number]) OFFICE/OUTPATIENT VISIT, EST Cherri Mianramuxuan [facility] CPT-4: 00729 06/15/2010 ([id number]) OFFICE/OUTPATIENT VISIT, EST Cherri Pathakxuan [facility] CPT-4: 14164 05/04/2010 ([id number]) OFFICE/OUTPATIENT VISIT, EST Cherri Pathakxuan [facility] CPT-4: 34914 03/03/2010 ([id number]) OFFICE/OUTPATIENT VISIT, EST Cherri Mianramuxuan [facility] CPT-4: 94444 10/20/2009 Plan of Care Planned Activity Notes Codes Status Date Visit Diagnosis Plan: Hemiplegia, unspecified affectin g left dominant side Discussion: Shaneka.me video visit done with nurse at CT Doing well with new Wheel Chair Follow Up: 2 months ICD-9 : 342.91 ICD-10 : G81.92 02/20/2020 Visit Diagnosis Plan: Gastro-esophageal reflux disease without esophagitis Discussion: Stable ICD-9 : 530.81 ICD-10 : K21.9 02/20/2020 Visit Diagnosis Plan: Left arm cellulitis Discussion: Shaneka. video visit done with nurse at CT Start Keflex Continue with clear tegaderm dressing and brian wrap and ice Notify if any worsening ICD-9 : 682.3 ICD-10 : L03.114 12/10/2019 Appointment: Cherri Holguintel: [address] [place] [address] 12/10/2019 Visit Diagnosis Plan: Sacral decubitus ulcer Discussio n: Wound Care seeing this week Follow Up: 2 months ICD-9 : 707.03 ICD-10 : L89.159 12/03/2019 Visit Diagnosis Plan: Constipation Discussion: Shaneka. 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 FOLLOW UP 06/25/2019 [...] ICD-10 : R41.840 02/05/2019 Appointment: Cherri Holguintel: [address] [place], [place] [id number] [place] Confirmed with Nara Hankins 02/02 @ 11:07 am FOL LOW UP 02/05/2019 Appointment: Cherri Holguintel: [address] [place], [place] [id number] [place] NO SHOW 01/24/2019 Visit Diagnosis Plan: Attention and concentration defi cit Discussion: Trial of strattera 10mg daily for 1 week then 25mg daily Recheck 6 weeks Stimulants have caused weight loss in past as patient is also poor, picky eater so with the stimulants her appetite worsens even more ICD-9 : 799.51 ICD-10 : R41.840 12/13/2018 Appointment: Cherri Holguintel: [address] [place], [place] [id number] [place] confirmed with Morena FOLLOW UP 12/13/2018 [...] ICD-10 : R53.83 11/27/2018 Appointment: Cherri Holguintel: [facility] [place] confirmed with Karlee FOLLOW UP [...] : K59.01 09/25/2018 Appointment: Cherri Holguin WPtel: [facility] [place] FOLLOW UP 09/25/2018 Visit Diagnosis [...] 08/03/2018 Visit Diagnosis Plan: Encounter for gene [facility] adult medical examination with abnormal findings Discussion: [...] 08/03/2018 Appointment: Maxine Glasgow [address] Annual Well Visit 08/03/2018 Visit Diagnosis [...] : K21.9 06/22/2018 [facility] [facility] 06/22/2018 Visit Diagnosis Plan: Gastro-esophageal reflux disease without esophagitis Discussion: Continue aciphex at 20m po daily Recheck 2mos ICD-9 : 530.81 ICD-10 : K21.9 04/06/2018 Appointment: Cherri Holguin [facility]el[facility] [phone] [facility] FOLLOW UP 04/06/2018 Patient Education: Patient Medication Summary Completed 04/06/2018 Appointment: Cherri Holguin WPtel: [phone] [facility] [place] RESCHEDULED 03/07/2018 Visit Diagnosis Plan: Gastro-esophageal reflux disease without esophagitis Discussion: patient had aciphex and prevacid on med list. order written out on patient's list to only give the aciphex as prescribed and not both. follow up in one month to assess medication efficacy and constipation. ICD-9 : 530.81 ICD-10 : K21.9 03/06/2018 Appointment: [facility]ine Glasgow [address] [id number] 03/06/2018 Patient Education: Patient Medication [...] : F51.01 02/15/2018 Appointment: Cherri Holguin WPtel: [address] [place], [place] [id number] [place] FOLLOW UP 02/15/2018 Patient Education: Patient Medication Summary Completed 02/15/2018 Appointment: Cherri Holguin WPtel: [address] [place], [place] [phone] [facility] transportation called, stating that the patient [...] : M62.81 12/12/2017 Appointment: Cherri Holguin WPtel: [address] [place], [place] [id number] [place] FOLLOW UP 12/12/2017 Patient Education: Patient Medication Summary Completed 12/12/2017 Visit Diagnosis Plan: Nondisplaced fract ure of medial malleolus of left tibia, subsequent encounter for closed fracture with delayed healing Discussion: Add miacalcin nasal spray for next 2mos Fwup with ortho Follow Up: 2 months ICD-9 : V54.16 ICD-10 : S82.55XG 10/10/2017 Appointment: Cherri Holguin WPtel: [facility] [place] FOLLOW UP 10/10/2017 Patient Education: Patient Medication Summary Completed 10/10/2017 Appointment: Cherri Holguin WPtel: [address] [place] [address] [place] RESCHEDULED 10/04/2017 Referral: Alvarado Mercado WPtel: [address] [address] [place] Referral Initiated 10/04/2017 Visit Diagnosis Plan: Acute upper respiratory infectio n, unspecified Discussion: continue with tespavel perlmerle as needed. increase fluids. notify if worsening symptoms including shortness of breath or fever. call or rtc later this week if no improvement. instructed patient to perform deep breathing exercises at home. ICD-9 : 465.9 ICD-10 : J06.9 09/19/2017 Appointment: Maxine Glasgow [address] [place] [address] ACUTE ILLNESS 09/19/2017 Patient Education: Patient Medication Summary Completed 09/19/2017 Appointment: Cherri Holguin WPtel: [address] [place], [place] [phone] [place] CANCELED 08/16/2017 Visit Diagnosis Plan: Muscle [...] : L98.8 08/04/2017 Appointment: Cherri Holguin WPtel: [address] [place], [place] [phone] [place] FOLLOW UP 08/04/2017 Patient Education: Patient [...] : Z85.841 07/12/2017 Appointment: Cherri Holguin WPtel: [address] [place], [place] [phone] Follow Up 07/12/2017 Patient Education: Patient [...] : B35.6 05/30/2017 Appointment: Cherri Holguin WPtel: [address] [place] [address] FOLLOW UP 05/30/2017 Patient Education: Patient Medication Summary Completed 05/30/2017 Visit Diagnosis Plan: Cellulitis of abdominal wall Dis cussion: Finish keflex Referral to wound care ICD-9 : 682.2 ICD-10 : L03.311 05/02/2017 Appointment: Cherri Holguin WPtel: [address] [place], [place] [phone] FOLLOW UP 05/02/2017 Patient Education: Patient Medication Summary Completed 05/02/2017 Referral: Reimgio Valdes WPtel: [address] [place], [place] [phone] [place] Referral Initiated 04/05/2017 Visit Diagnosis Plan: Cellulitis of chest wall Discuss ion: Keflex x1 week Continue daily dressing changes ICD-9 : 682.2 ICD-10 : L03.313 02/28/2017 Visit Diagnosis Plan: Muscle weakness (generalized) Di scussion: Stable Follow Up: 2 months ICD-9 : 728.87 ICD-10 : M62.81 02/28/2017 Appointment: Cherri Holguin WPtel: [facility] 02/24 confirmed~sl FOLLOW UP 02/28/2017 Patient Education: Patient Medication Summary Completed 02/28/2017 Visit Diagnosis Plan: Cellulitis of abdominal wall Dis cussion: Healing and improving so will finish all of clindamycin and monitor wounds for any worsening or recurrence ICD-9 : 682.2 ICD-10 : L03.311 12/06/2016 Appointment: Cherri Holguin WPtel: [address] [facility] WORK IN 12/06/2016 Patient Education: Patient Medication Summary Completed 12/06/2016 Visit Diagnosis Plan: Cutaneous abscess of abdominal w all Discussion: Continue clindamycin and dressing changes To ER this weekend if worsens Fwup with me in 4 days for recheck ICD-9 : 682.2 ICD-10 : L02.211 12/02/2016 Appointment: Cherri Holguin WPtel: [address] [facility] FOLLOW UP 12/02/2016 Patient Education: Patient [...] : L02.211 12/01/2016 Appointment: Cherri Holguintel: [address] [facility] [place] WORK IN 12/01/2016 Patient Education: Patient Medication Summary Completed 12/01/2016 Visit Diagnosis Plan: Cutaneous abscess of abdominal w all Discussion: Copious amounts of pus expressed until bloody discharge Start clindamycin Recheck tomorrow Erythema outline marked Follow Up: 1 days ICD-9 : 682.2 ICD-10 : L02.211 11/30/2016 Appointment: Cherri Holguin WPtel: [address] [place], [place] [phone] 11/29 confirmed`sl FOLLOW UP 11/30/2016 Patient Education: Patient Medication Summary Completed 11/30/2016 Appointment: Cherri Holguin WPtel: [address] [place], [place] [phone] 11/10 scalp looks ok will discuss at [...] : K59.01 10/26/2016 Appointment: Cherri Holguin WPtel: [address] [place], [place] [phone] ACUTE ILLNESS 10/26/2016 Patient Education: Patient Medication Summary Completed 10/26/2016 Patient Education: Patient Medication Summary Completed 10/21/2016 Care Plan: CT HEAD/BRAIN W/O DYE LOINC : 12606-1 Pending 10/21/2016 Visit Diagnosis Plan: Other seborrheic dermatitis Disc ussion: Topical ketoconazole shampoo alternating with selsun blue Follow Up: 2 months ICD-9 : 706.3 ICD-10 : L21.8 09/13/2016 Appointment: Cherri Holguin WPtel: [address] [place], [place] [phone] 09/09 confirm`sl FOLLOW UP 09/13/2016 Patient Education: Patient Medication Summary Completed 09/13/2016 Appointment: Cherri Holguin WPtel: [address] [place], [place] [phone] [place] CANCELED 07/13/2016 Visit Plan: Low-dose CT scan-45 PPD of C hest Check hemoccult Discussed updated CT of head to recheck meningioma Zostavax vaccine Will obtain last colonoscopy results Update lab 07/12/2016 Appointment: Cherri Holguin WPtel: [address] [place], [place] [phone] 07/08 confirmed~sl Annual Well Visit 07/12/2016 Patient Education: Patient Medication Summary Completed 07/12/2016 Visit Plan: Gets teeth extracted next mo nth then getting fitted for dentures so some of poor appetite is due to inability to eat certain things Continue current meds Defers flu shot 05/11/2016 Appointment: Cherri Holguin WPtel: [address] [place], [place] [phone] 05/10 confirmed~sl FOLLOW UP 05/11/2016 Patient Education: Patient Medication Summary Completed 05/11/2016 Visit Plan: Discussed nutrition and poss ible shakes as supplement until gets teeth completely pulled and fitted for full dentures Continue current meds Did have right scalp lesion removed 12/23/2015 Appointment: Cherri Holguin WPtel: [address] [place], [place] [phone] 12/21 confirmed-sp FOLLOW UP 12/23/2015 Patient Education: Patient Medication Summary Completed 12/23/2015 Referral: Tabitha Messer WPtel: [facility] [address] [facility] [place] Spoke with Kayli at [facility] and gave her appt information Initiated 10/07/2015 Visit Plan: Start PT for ROM of neck Dis cussed milkshake in place of meal if does not eat at least 20% of meal--patient states she wants to lose weight and does not like the food served there See dermatology for removal of scalp lesion 09/23/2015 Appointment: Cherri Holguin WPtel: [address] [place], [place] [phone] 09/22/15 appt confirmed with Amber at [facility] FOLLOW UP 09/23/2015 Patient Education: Patient Medication Summary Completed 09/23/2015 Visit Plan: Stop miralax and senokot-s S tart dulcolax daily Patient asking for PT and OT again but admits they don't really help/she doesn't gain much from them 04/15/2015 Appointment: Cherri Holguin WPtel: [address] [place], [place] [phone] 04/11 confirmed with [facility] FOLLOW UP 04/15/2015 Patient Education: Patient Medication Summary Completed 04/15/2015 Visit Plan: Check CBC, CMP, TSH, free T4 , Vit D Continue current meds 01/14/2015 Appointment: Cherri Holguin WPtel: [address] [place], [place] [phone] ACUTE ILLNESS 01/14/2015 Patient Education: Patient Medication Summary Completed 01/14/2015 Visit Plan: Change to Senokot-S 2 po BID Add miralax Has been released by burn center for now 10/29/2014 Appointment: Cherri Holguin WPtel: [address] [place], [place] [phone] 10/28 with Madiha FOLLOW UP 10/29/2014 Patient Education: Patient Medication Summary Completed 10/29/2014 Visit Plan: Patient is wheelchair bound now Continue current meds Patient following with [facility] end of 08/20/2014 Appointment: Cherri Holguin WPtel: [address] [place] [address] MLP rescheduled due to cold weather 08/19 message with Madiha at [facility] FOLLOW U P 08/20/2014 Patient [...] in [place] 06/04/2014 Appointment: Cherri Holguin WPtel: [address] [place], [place] [phone] FOLLOW UP 06/04/2014 Patient Education: Patient Medication Summary Completed 06/04/2014 Visit Plan: Patient sees burn center nex t week Explained importance of taking nutren routinely as needs nutrition Increase prilosec to 20mg po BID Smoking Cessation 05/06/2014 Appointment: Cherri Holguin WPtel: [address] [place], [place] [phone] 05/03 vm on patient phone 05/03 message with Maria L at [facility] Follow Up 05/06/2014 Patient Education: Patient Medication Summary Completed 05/06/2014 Visit Plan: Finish abx Brian wrap to left LE and elevate 08/07/2013 Appointment: Cherri Holguin WPtel: [address] [place], [place] [phone] Urgent/Quick Care Follow Up 07/10 Patient Education: Patient Medication Summary Completed 08/07/2013 Appointment: Cherri Holguin WPtel: [address] [place], [place] [phone] 07/18 appointment confirmed with patient 07/19 NO SHOW FOLLOW UP 07/19/2013 Visit Plan: Continue current meds Contin ue PT 05/23/2013 Appointment: Cehrri Holguin WPtel: [address] [place], [place] [phone] 05/22 vm...appt confirmed FOLLOW UP 2012 Patient Education: Patient Medication Summary Completed 05/23/2013 Visit Plan: Long discussion about need f or 24hr care Pt wants to go home 04/25/2013 Appointment: Cherri Holguin WPtel: [address] [place], [place] [phone] Appt confirmed with Augusto at [facility] Follow Up 04/25/2013 Patient Education: Patient Medication Summary Completed 04/25/2013 Appointment: Cherri Holguin WPtel: [address] [place], [place] [phone] 04/20 message left at [facility] FOLLOW UP 04/23/2013 Visit Plan: Continue current meds 01/22/2013 Appointment: Cherri Holguin WPtel: [address] [place], [place] [phone] 01/22 vm left FOLLOW UP 01/22/2013 Patient Education: Patient Medication Summary Completed 01/22/2013 Appointment: Cherri Holguin WPtel: [address] [place], [place] [phone] 11/20 left message...patient called in a t 10:00am and said she was unable to get to her car. She rescheduled for 11/27 11am 11/24 left message 11/29 called to confirm, patient cancell ed due to no ride from [facility] [place]. patient will call [facility] and see when they can bring her and then call us to schedule FOLLOW UP 11/30/2012 Visit Plan: Going to go home at the end of week with caregiver Continue current meds 10/18/2012 Appointment: Cherri Holguin WPtel: [address] [place], [place] [phone] 10/17 appt confirmed with Reyna FOLLOW UP 10/18/2012 Patient Education: Patient Medication Summary Completed 10/18/2012 Visit Plan: Continue and finish PT Sultana nue current meds Fwup October 19 or --pts 100 days is up October 21 09/25/2012 Appointment: Cherri Holguintel: [address] [place], [place] [phone] [place] worked in since care home just droppe d her off. She was on shedule at one point but showed it was cancelled WORK IN Appointment: Cherri Holguin WPtel: [address] [place], [place] [phone] 07/17 Cancelled 09/25 Appt - Patient has appointments on 07/08 & 07/27 FOLLOW UP 09/25/2012 Patient Education: Patient Medication Summary Completed 09/25/2012 Visit Plan: Continue current meds Pt wan ts to go home when her 100 days are up 08/24/2012 Appointment: Cherri Holguin WPtel: [address] [place], [place] [phone] FOLLOW UP 08/24/2012 Patient Education: Patient Medication Summary Completed 08/24/2012 Visit Plan: DC tramadol Repeat UA and ch edu UDS Start PT for neck Discussed neurology eval, but pt has been to several in past and even [facility] 07/27/2012 Appointment: Cherri Holguin WPtel: [address] [place], [place] [phone] FOLLOW UP 07/27/2012 Patient Education: Patient Medication Summary Completed 07/27/2012 Appointment: Cherri Holguin WPtel: [address] [place], [place] [phone] 07/17 - left message..07/17 left message with Antonella at [facility] pt has appt tomorrow and on I think the 07/18 appt was scheduled prior to hospitalization. 07/18 no showed. just entered care home so no show is forgiven FOLLOW UP 07/18/2012 Appointment: Tasneem Esquivel WPtel: [address] [place], [place] [phone] ACUTE ILLNESS 07/05/2012 Patient Education: Patient Medication Summary Completed 07/05/2012 Appointment: Cherri Holguin WPtel: [address] [place], [place] [phone] FOLLOW UP 05/29/2012 Patient Education: Patient Medication Summary Completed 05/29/2012 Appointment: Cherri Holguin WPtel: [address] [place], [place] [phone] [place] FOLLOW UP 02/02/2012 Patient Education: Patient Medication Summary Completed 02/02/2012 Visit Plan: Continue current meds Check CBC, CMP, TSH, Free T4, B12 11/03/2011 Appointment: Cherri Holguin WPtel: [address] [place] [address] FOLLOW UP 11/03/2011 Patient Education: Patient Medication Summary Completed 11/03/2011 Visit Plan: Adderall refilled Continue c urrent meds 08/25/2011 Appointment: Cherri Holguin WPtel: [address] [place] [address] FOLLOW UP 08/25/2011 Patient Education: Patient Medication Summary Completed 08/25/2011 Appointment: Cherri Holguin WPtel: [address] [place] [address] Appointment was confirmed. FOLLOW UP 08/16 Visit Plan: Esther is eye doctor. Will u se eye drop.(Cipro as she claims allergy (nausea). Pt. is accompanied by "grounds keepers" from [facility]. Written instructions given for pt. to be seen in follow up by Esther. Written RX also given to pt. for cipro eye drops. Pt. is instructed that the RX has been electronically sent to [facility]. 05/27/2011 Appointment: Tasneem Esquivel WPtel: [address] [place] [address] ACUTE ILLNESS 05/27/2011 Patient Education: Patient Medication Summary Completed 05/27/2011 Visit Plan: Continue increased dose of A dderall 04/15/2011 Appointment: Cherri Holguin WPtel: [address] [place] [address] [place] FOLLOW UP 04/15/2011 Patient Education: Patient Medication Summary Completed 04/15/2011 Appointment: Cherri Holguin WPtel: [address] [place] [address] FOLLOW UP 03/22/2011 Patient Education: Patient Medication Summary Completed 03/22/2011 Appointment: Cherri Holguin WPtel: [address] [place], [place] [phone] [place] FOLLOW UP 02/25/2011 Visit Plan: Trial of Wellbutrin XL 150mg q AM 02/22/2011 Appointment: Cherri Holguin WPtel: [address] [place], [place] [phone] FOLLOW UP 02/22/2011 Patient Education: Patient Medication Summary Completed 02/22/2011 Visit Plan: Continue PT Add Cymbalta 30m g daily 01/26/2011 Appointment: Cherri Holguin WPtel: [address] [place] [address] FOLLOW UP 01/26/2011 Patient Education: Patient Medication Summary Completed 01/26/2011 Visit Plan: Cont current meds and PT Exa m for Power chair completed Adderall rx refilled 06/15/2010 Appointment: Cherri Holguin WPtel: [address] [place] [address] ESTABLISHED PATIENT 06/15/2010 Patient Education: Patient Medication Summary Completed 06/15/2010 Visit Plan: To rehab today for PT/OT--I will follow on rehab unit 05/04/2010 Appointment: Cherri Holguin WPtel: [address] [place], [place] [phone] FOLLOW UP 05/04/2010 Patient Education: Patient Medication Summary Completed 05/04/2010 Visit Plan: Cont PT Cont Forteo Long dis cussion about living home--will discuss with PT when finishes this session 03/03/2010 Appointment: Cherri Holguin WPtel: [address] [place] [address] FOLLOW UP 03/03/2010 Patient Education: Patient Medication Summary Completed 03/03/2010 Visit Plan: EGD by Dr. Dang Pt agrees to restart Forteo 10/20/2009 Appointment: Cherri Holguin WPtel: [address] [place], [place] [phone] FOLLOW UP 10/20/2009 Patient Education: Patient Medication Summary Completed 10/20/2009 Referral: Antonio Gandhi WPtel: [address] [id number] [place] Referral Initiated Instructions Comment . Low-dose [...] meds [facility] . Patient is [...] been to several in past and even [facility] . Continue current meds Check CBC, CMP, TSH, Free T4, B12 . Adderall refilled Continue current meds . 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 Will use eye bj p.(Cipro as she claims allergy (nausea). Pt. is accompanied by "grounds keepers" from [facility]. Written instructions given for pt. to [...]
--- OUTSIDE RECORDS SUMMARY | 2020-03-05 20:45 | XMS REPORT | CCD ---
Author Author Rosario Holguin D.O. Organization [facility] Address [address] [place] [address] Phone Care Team Providers Care Web Merchant Name Role Phone Cherri Holguin D.O., PP Unavailable CCM Unavailable Summary Purpose Interface Exchange Insurance Providers Payer name Policy type / Coverage type Covered green party ID Effective Begin Date Effective End Date WPS MEDICARE PART B [place] Medicare Part B [id number] Unknown [facility] Medicare Part B [id number] Unknown [facility] Medicare Part B [id number] Unknown Family History Family History data not found Social History Social History Element Codes Description Effective Dates Tobacco history SNOMED CT: 0310765 Former smoker 04/15/2015 Allergies, Adverse Reactions, Alerts [...] Instructions Tessalon Perles 100 mg capsule RxNorm: 572251 1 Capsule(s) Oral Q8H as needed 12/03/2019 No Stop Date Active glycerin (adult) rectal suppository RxNorm: 1 Cardenas ppository Rectal and Tuesday12/03/2019 No Stop Date Active cyanocobalamin (vit B-12) 1,000 mcg/mL injection solution Rx Norm: 470132 1 Milliliter(s) Intramuscular every 2 weeks 06/26/2019 09/24/2019 Inacti ve cyanocobalamin (vit B-12) 1,000 mcg/mL injection solution Rx Norm: 975171 1 Milliliter(s) Intramuscular every 2 weeks 06/26/2019 06/25/2019 Inacti ve bisacodyl 10 mg rectal suppository RxNorm: 486966 1 Sup pository Rectal QD as needed 05/10/2019 No Stop Date Active glycerin (adult) rectal suppository RxNorm: 6508276 1 Suppositor y RTL BIW 07/25/2018 12/02/2019 Inactive rabeprazole 20 mg tablet,delayed release RxNorm: 709665 1 Table t(s) PO QD 03/01/2018 05/29/2018 Inactive replaces lansoprazol e Adderall XR 10 mg capsule,extended release RxNorm: 217029 1 Cap teresa(s) PO QAM 10/20/2017 12/19/2017 Inactive Tessalon Perles 100 mg capsule RxNorm: 118239 1 Capsule (s) PO TID as needed for cough 09/16/2017 09/30/2019 Inactive Cymbalta 30 mg capsule,delayed release RxNorm: 174667 1 Capsule (s) PO QD 08/17/2017 12/02/2019 Inactive nystatin 100,000 unit/gram topical powder RxNorm: 536220 1 Appl ication TOP BID 08/16/2017 02/14/2018 Inactive Adderall XR 10 mg capsule,extended release RxNorm: 107019 1 Cap teresa(s) PO QAM 08/11/2017 09/09/2017 Inactive Adderall XR 10 mg capsule,extended release RxNorm: 921862 1 Cap teresa(s) PO QAM 08/04/2017 08/03/2017 Inactive Adderall XR 10 mg capsule,extended release RxNorm: 122614 1 Cap teresa(s) PO QAM 08/04/2017 08/10/2017 Inactive Bactrim DS 800 mg-160 mg tablet RxNorm: 756995 1 Tablet(s) PO BID 1 08/28/2016 07/07/2017 Inactive clindamycin 300 mg capsule RxNorm: 709363 2 Capsule(s) PO TID doses for today and tomorrow 11/30/2016 05/01/2017 Inactive ketoconazole 2 % shampoo RxNorm: 851446 1 Application TOP twice a week 09/14/2016 05/01/2017 Inactive hydrocodone 5 mg-acetaminophen 325 mg tablet RxNorm: 777821 1 Tablet(s) PO Q6H as needed for pain 07/12/2016 05/01/2017 Inactive Cipro 250 mg tablet RxNorm: 179238 1 Tablet(s) PO BID 09/29/201509/09 Inactive cefuroxime axetil 250 mg tablet RxNorm: 734369 1 Tablet(s) PO BID 0 09/10/2015 09/16/2015 Inactive Micro-K 8 mEq capsule,extended release RxNorm: 787049 1 Capsule (s) PO QD 08/20/2015 08/16/2017 Inactive Micro-K 8 mEq capsule,extended release RxNorm: 330684 1 Capsule (s) PO QD 08/20/2015 08/19/2015 Inactive Adderall XR 20 mg capsule,extended release RxNorm: 111459 1 Cap teresa(s) PO QAM 04/30/2015 02/11/2016 Inactive hydroxyzine HCl 25 mg tablet RxNorm: 669385 1 Tablet(s) PO Q6H as needed for itching/hives 04/02/2015 09/12/2016 Inactive Miralax 17 gram oral powder packet RxNorm: 774404 17 Gr am(s) PO BID for constipation 02/26/2015 02/11/2016 Inactive Adderall XR 20 mg capsule,extended release RxNorm: 888831 1 Cap teresa(s) PO QAM 07/09/2014 08/07/2014 Inactive Adderall 20 mg tablet RxNorm: 189299 2 Tablet(s) PO QD 02/04/201408/2013 Inactive [AttnRPh: Saving apply/adjudicate RxGRP: SG20 RxBIN:[id number] RxPCN:HT ID#:[id number]] triamcinolone acetonide 0.1 % topical cream RxNorm: 3922194 1 Application TOP BID to affected area as needed 12/12/2013 01/13/2015 Inactive [ AttnRPh: Saving apply/adjudicate RxGRP:SG20 RxBIN:[id number] RxPCN:HT ID#:[id number]] Adderall 20 mg tablet RxNorm: 561302 2 Tablet(s) PO QD 12/04/2013 Inactive [AttnRPh: Saving apply/adjudicate RxGRP: SG20 RxBIN:[id number] RxPCN:HT ID#:[id number]] Adderall 20 mg tablet RxNorm: 022861 2 Tablet(s) PO QD 12/03/2013 Inactive [AttnRPh: Saving apply/adjudicate RxGRP: SG20 RxBIN:[id number] RxPCN:HT ID#:[id number]] Adderall 20 mg tablet RxNorm: 954222 2 Tablet(s) PO QD 11/02/2013 Inactive Adderall 20 mg tablet RxNorm: 709207 2 Tablet(s) PO QD 10/01/2013 Inactive meloxicam 7.5 mg tablet RxNorm: 497710 1 Tablet(s) PO QD 09/24/2013 0 08/19/2014 Inactive lisinopril 20 mg tablet RxNorm: 307348 1 Tablet(s) PO QD 09/24/2013 0 08/19/2014 Inactive Protonix 40 mg tablet,delayed release RxNorm: 700628 1 Tablet(s ) PO QD 09/24/2013 08/19/2014 Inactive Adderall 20 mg tablet RxNorm: 788815 2 Tablet(s) PO QD 08/29/2013 Inactive Adderall 20 mg tablet RxNorm: 711270 2 Tablet(s) PO QD 08/02/2013 Inactive hydroxyzine HCl 25 mg tablet RxNorm: 676150 1 Tablet(s) PO Q6H as needed 06/29/2013 08/19/2014 Inactive Adderall 20 mg tablet RxNorm: 353415 2 Tablet(s) PO QD 05/22/2013 Inactive Protonix 40 mg tablet,delayed release RxNorm: 243644 1 Tablet(s ) PO QD 05/15/2013 09/11/2013 Inactive meloxicam 7.5 mg tablet RxNorm: 807317 1 Tablet(s) PO QD 05/15/2013 0 09/11/2013 Inactive lisinopril 20 mg tablet RxNorm: 417998 1 Tablet(s) PO QD 05/15/2013 0 09/11/2013 Inactive Adderall 20 mg tablet RxNorm: 059310 2 Tablet(s) PO QD 04/02/2013 No Stop Date Active Adderall 20 mg tablet RxNorm: 505737 2 Tablet(s) PO QD 02/27/2013 No Stop Date Active Adderall 20 mg tablet RxNorm: 448766 2 Tablet(s) PO QD 01/22/2013 No Stop Date Active Adderall 20 mg tablet RxNorm: 785636 2 Tablet(s) PO QD 12/28/2012 No Stop Date Active Adderall 20 mg tablet RxNorm: 473981 2 Tablet(s) PO QD 12/01/2012 No Stop Date Active Adderall 20 mg tablet RxNorm: 071195 2 Tablet(s) PO QD 11/01/2012 No Stop Date Active K-Dur 20 mEq tablet,extended release RxNorm: 146591 1 Tablet(s) PO QD 10/19/2012 11/26/2018 Inactive meloxicam 7.5 mg tablet RxNorm: 316207 1 Tablet(s) PO QD 10/19/2012 0 04/16/2013 Inactive Protonix 40 mg tablet,delayed release RxNorm: 468749 1 Tablet(s ) PO QD 10/19/2012 04/16/2013 Inactive lisinopril 20 mg tablet RxNorm: 675068 1 Tablet(s) PO QD 10/19/2012 0 04/16/2013 Inactive Cipro 500 mg tablet RxNorm: 525903 1 Tablet(s) PO BID 07/05/201211/2011 Inactive Adderall XR 20 mg capsule,extended release RxNorm: 099503 2 Cap teresa(s) PO QAM 06/12/2012 07/26/2012 Inactive Adderall XR 20 mg capsule,extended release RxNorm: 529264 2 Cap teresa(s) PO QAM 05/16/2012 06/11/2012 Inactive Adderall XR 20 mg capsule,extended release RxNorm: 078213 2 Cap teresa(s) PO QAM 04/21/2012 05/15/2012 Inactive Adderall XR 20 mg capsule,extended release RxNorm: 540931 2 Cap teresa(s) PO QAM 02/16/2012 03/16/2012 Inactive Enablex 15 mg 24 hr Tab RxNorm: 806846 1 Tablet(s) PO QPM repla mady Vesicare 02/07/2012 05/28/2012 Inactive Enablex 15 mg 24 hr Tab RxNorm: 956554 1 Tablet(s) PO QPM repla mady Vesicare 02/07/2012 08/04/2012 Inactive Protonix 40 mg Tab RxNorm: 014238 1 Tablet(s) PO QD 02/07/20122011 Inactive Protonix 40 mg Tab RxNorm: 927985 1 Tablet(s) PO QD 02/02/20122011 Inactive Enablex 15 mg 24 hr Tab RxNorm: 247936 1 Tablet(s) PO QPM repla mady Vesicare 02/02/2012 02/06/2012 Inactive Adderall XR 20 mg 24 hr Cap RxNorm: 982408 2 Capsule(s) PO QAM 01/0602/15/2012 Inactive Adderall XR 20 mg 24 hr Cap RxNorm: 067496 2 Capsule(s) PO QAM 12/0601/15/2012 Inactive Adderall XR 20 mg 24 hr Cap RxNorm: 308184 2 Capsule(s) PO QAM 11/0612/16/2011 Inactive Adderall XR 20 mg 24 hr Cap RxNorm: 331818 2 Capsule(s) PO QAM 10/0611/17/2011 Inactive Adderall XR 20 mg 24 hr Cap RxNorm: 726809 2 Capsule(s) PO QAM 09/0910/24/2011 Inactive Prevacid 30 mg Cap RxNorm: 457523 1 Capsule(s) PO QD 07/30/201109/27 Inactive Adderall XR 20 mg 24 hr Cap RxNorm: 041044 2 Capsule(s) PO QAM 07/0908/28/2011 Inactive Adderall XR 20 mg 24 hr Cap RxNorm: 750034 2 Capsule(s) PO QAM 06/0807/21/2011 Inactive ciprofloxacin 0.3 % Eye Drops RxNorm: 394897 2 Drop(s) OPH Q2H 05/0905/31/2011 Inactive Adderall XR 20 mg 24 hr Cap RxNorm: 591504 2 Capsule(s) PO QAM 05/08 No Stop Date Active Wellbutrin XL 150 mg 24 hr Tab RxNorm: 600484 1 Tablet(s) PO QAM 04/14/2011 Inactive Vesicare 10 mg Tab RxNorm: 981354 1 Tablet(s) PO QD 12/24/20102011 Inactive Vesicare 10 mg Tab RxNorm: 295328 1 Tablet(s) PO QD 12/21/20102018 Inactive Adderall XR 30 mg 24 hr Cap RxNorm: 109460 1 Capsule(s) PO QD 11/1712/16/2010 Inactive Vesicare 10 mg Tab RxNorm: 620842 1 Tablet(s) PO QD 09/21/20102010 Inactive Adderall XR 30 mg 24 hr Cap RxNorm: 709192 1 Capsule(s) PO 09/17/19 11 10/16/2010 Inactive Adderall XR 30 mg 24 hr Cap RxNorm: 571420 1 Capsule(s) PO QAM 07/0911/26/2018 Inactive Adderall XR 30 mg 24 hr Cap RxNorm: 208145 1 Capsule(s) PO QAM 07/0908/03/2010 Inactive Adderall XR 20 mg 24 hr Cap RxNorm: 062506 2 Capsule(s) PO QD 01/2602/02/2010 Inactive Adderall XR 20 mg 24 hr Cap RxNorm: 248936 1 Capsule(s) PO QD 01/2605/03/2010 Inactive Forteo 20 mcg/dose (600 mcg/2.4 mL) Sub-Q Pen Injector RxNorm: 1 309529 SQ 12/30/2009 01/25/2011 Inactive hyoscyamine 0.125 mg sublingual tablet RxNorm: 7767772 1 Tablet(s) SL Q4H as needed for excessive secretions No Start Date Active Senokot-S 8.6 mg-50 mg tablet RxNorm: 7232395 2 Tablet(s) PO BID No Start Date Active rabeprazole 20 mg tablet,delayed release RxNorm: 590705 1 Table t(s) PO QD No Start Date Active Micro-K 10 10 mEq capsule,extended release RxNorm: 278355 1 Cap teresa(s) PO QD No Start Date Active docusate sodium 100 mg tablet RxNorm: 5188635 1 Tablet(s) PO Q8H as needed No Start Date Active ondansetron HCl 4 mg tablet RxNorm: 128022 1 Tablet(s) PO Q4H a s needed No Start Date Active Vitamin D3 5,000 unit tablet RxNorm: 543959 1 Tablet(s) PO QD No Star t Date Active bisacodyl 5 mg tablet RxNorm: 320886 1 Tablet(s) PO BID as needed N o Start Date Active aspirin 81 mg tablet RxNorm: 611302 1 Tablet(s) PO QD No Start Date Active Multivitamin And Mineral oral RxNorm: oral No Start Date Active Benadryl 1 % topical cream RxNorm: 9674791 TOP as needed for hiv es No Start Date Active K-Dur 20 mEq tablet,extended release RxNorm: 123326 1 Tablet(s) PO QD No Start Date 08/19/2014 Inactive Colace 100 mg capsule RxNorm: 8078813 1 Capsule(s) PO BID No Start Date 01/19/2017 Inactive ketoconazole 2 % shampoo RxNorm: 818356 1 Application TOP twice a week No Start Date 09/13/2016 Inactive ibuprofen 600 mg tablet RxNorm: 280953 1 Tablet(s) PO Q6H as ne eded No Start Date 06/21/2018 Inactive Zaditor 0.025 % Eye Drops RxNorm: 375690 1 Drop(s) OPH BID No Start Date 05/28/2012 Inactive senna 8.6 mg tablet RxNorm: 969976 2 Tablet(s) PO BID No Start Date 0 02/11/2016 Inactive senna 8.6 mg tablet RxNorm: 314320 1 Tablet(s) PO BID No Start Date 0 02/11/2016 Inactive Amoxil 500 mg capsule RxNorm: 948867 1 Capsule(s) PO BID No Start D ate 05/01/2017 Inactive lisinopril 20 mg tablet RxNorm: 392095 1 Tablet(s) PO QD No Start D ate 10/18/2012 Inactive Prevacid 30 mg Capsule, delayed release RxNorm: 721971 1 Capsul e(s) PO QD No Start Date 02/01/2012 Inactive Senokot-S 8.6 mg-50 mg Tab RxNorm: 3686085 2 Tablet(s) PO QD PRN No Start Date 03/02/2010 Inactive Cymbalta 30 mg capsule,delayed release RxNorm: 226360 1 Capsule (s) PO QD No Start Date 08/16/2017 Inactive ketoconazole 2 % topical cream RxNorm: 565748 1 Applica tion TOP BID to scaly eyebrows No Start Date 05/01/2017 Inactive lorazepam 0.5 mg tablet RxNorm: 714365 1 Tablet(s) PO Q4H as ne eded No Start Date 06/21/2018 Inactive Vitamin C 500 mg tablet RxNorm: 108180 1 Tablet(s) PO QD No Start D ate 01/21/2013 Inactive albuterol sulfate 2.5 mg/3 mL (0.083 %) Neb Solution RxNorm: 694265 Milliliter(s) INH 1 vial in nebulizer every 4 hours as needed No Start Date 01/21/2013 Inactive Adderall XR 20 mg 24 hr Cap RxNorm: 658918 1 Capsule(s) PO QAM No S tart Date 01/25/2011 Inactive Xanax 0.25 mg Tab RxNorm: 313746 1/2 Tablet(s) PO BID PRN No Start Date 03/02/2010 Inactive Tylenol Extra Strength 500 mg Tab RxNorm: 999553 2 Tablet(s) PO PRN No Start Date 08/24/2011 Inactive Adderall 20 mg tablet RxNorm: 609610 2 Tablet(s) PO QD No Start Date 10/31/2012 Inactive bisacodyl 5 mg tablet,delayed release RxNorm: 268485 1 Tablet(s) PO Q12H as needed No Start Date 02/04/2019 Inactive Tessalon Perles 100 mg capsule RxNorm: 034633 1 Capsule (s) PO TID as needed for cough No Start Date 09/15/2017 Inactive Vitamin D3 1,000 unit tablet RxNorm: 250670 3 Tablet(s) PO QD No St art Date 02/22/2017 Inactive meloxicam 7.5 mg tablet RxNorm: 340118 1 Tablet(s) PO QD No Start D ate 10/18/2012 Inactive Bactroban 2 % topical ointment RxNorm: 784569 1 Application TOP QD No Start Date 12/11/2017 Inactive Toviaz 8 mg 24 hr Tab RxNorm: 643451 1 Tablet(s) PO QD No Start Date 09/21/2010 Inactive Prevacid 15 mg capsule,delayed release RxNorm: 799434 Capsule(s ) PO QD No Start Date 02/28/2018 Inactive K-Dur 20 mEq tablet,extended release RxNorm: 4870746 1 Tablet(s) PO QD No Start Date 10/18/2012 Inactive Adderall XR 20 mg 24 hr Cap RxNorm: 133600 2 Capsule(s) PO QAM No S tart Date 05/24/2011 Inactive Calcium with Vitamin D 600 mg-400 unit Tab RxNorm: 548060 1 Tab let(s) PO QD No Start Date 08/24/2011 Inactive Miralax 17 gram oral powder packet RxNorm: 227453 17 Gram(s) PO BID as needed No Start Date 11/26/2018 Inactive Zestril 10 mg Tab RxNorm: 189960 1 Tablet(s) PO QD No Start Date 10/06 Inactive baclofen 10 mg tablet RxNorm: 849210 1 Tablet(s) PO QHS No Start Da te 09/11/2015 Inactive Tums 500 Oral RxNorm: Oral No Start Date 01/13/2015 Inactive Senokot-S 8.6 mg-50 mg tablet RxNorm: 6219877 1 Tablet(s) PO BID No Start Date 11/26/2018 Inactive Prozac 10 mg Tab RxNorm: 174602 1 Capsule(s) PO QD No Start Date 10/06 Inactive Elavil 10 mg tablet RxNorm: 300457 1 Tablet(s) PO QHS No Start Date 0 12/12/2018 Inactive Dulcolax Stool Softener (docusate) 100 mg capsule RxNorm: 12 80676 1 Capsule(s) PO Q8H as needed No Start Date 01/19/2017 Inactive Adderall XR 30 mg 24 hr Cap RxNorm: 282726 1 Capsule(s) PO QAM No S tart Date 04/14/2011 Inactive Milk of Alexa-Maury 15.25 % oral suspension RxNorm: oral No Start Date 11/26/2018 Inactive Tylenol 325 mg tablet RxNorm: 662865 2 Tablet(s) PO Q4H as needed N o Start Date 11/26/2018 Inactive Prilosec 20 mg capsule,delayed release RxNorm: 172142 1 Capsule (s) PO BID No Start Date 09/08/2014 Inactive Tylenol 8 Hour 650 mg tablet,extended release RxNorm: 515545 0 1 Tablet(s) PO Q4H as needed No Start Date 11/26/2018 Inactive Vitamin D3 2,000 unit tablet RxNorm: 199609 1 Tablet(s) PO QD No St art Date 02/22/2017 Inactive nystatin 100,000 unit/gram topical powder RxNorm: 897719 1 Appl ication TOP BID No Start Date 08/15/2017 Inactive morphine 20 mg/5 mL (4 mg/mL) oral solution RxNorm: 392434 .25 Milliliter(s) PO Q4H as needed No Start Date 09/24/2018 Inactive Forteo 20 mcg/dose (750 mcg/3 mL) Sub-Q Pen Injector RxNorm: 143 5115 SQ QD No Start Date 01/21/2010 Inactive ciprofloxacin 0.3 % Eye Drops RxNorm: 188282 2 Drop(s) OPH TID to affected eye No Start Date 08/23/2012 Inactive bisacodyl 5 mg tablet RxNorm: 944894 1 Tablet(s) PO BID No Start Da te 02/11/2016 Inactive Avosil 2 %-0.2 % topical ointment RxNorm: 1 Appl ication TOP Q8H as needed to burn sites No Start Date 11/26/2018 Inactive Milk of Sarahesia 800 mg/5 mL oral suspension RxNorm: 764674 Milliliter(s) PO as needed No Start Date 06/20/2018 Inactive Atarax 25 mg tablet RxNorm: 659858 1 Tablet(s) PO Q4H prn itchi ng/hives No Start Date 08/24/2011 Inactive Adderall XR 30 mg 24 hr Cap RxNorm: 927102 1 Capsule(s) PO QAM No S tart Date 07/26/2010 Inactive Prevacid 30 mg Cap RxNorm: 708653 1 Capsule(s) PO QD No Start Date Inactive Vitamin C 500 mg tablet RxNorm: 264361 1 Tablet(s) PO BID No Start Date 07/11/2016 Inactive Vistaril 25 mg capsule RxNorm: 348974 1 Capsule(s) PO Q4H PRN No St art Date 03/02/2010 Inactive tramadol 50 mg tablet RxNorm: 929169 1 Tablet(s) PO TID as need ed for pain No Start Date 01/21/2013 Inactive Multivitamin & Mineral Formula tablet RxNorm: 1 Tablet(s) PO Q D No Start Date 06/22/2018 Inactive hydrocodone 5 mg-acetaminophen 325 mg tablet RxNorm: 462856 1 Tablet(s) PO Q4H as needed for pain No Start Date 06/24/2019 Inactive Multivitamin & Mineral Formula Oral RxNorm: Oral No Start Da te 03/02/2010 Inactive Miralax 17 gram oral powder packet RxNorm: 640953 17 Gr am(s) PO QPM for constipation No Start Date 02/25/2015 Inactive Percocet 5 mg-325 mg tablet RxNorm: 5772360 1-2 Tablet(s) PO Q4H as needed No Start Date 09/24/2018 Inactive triamcinolone acetonide 0.1 % topical cream RxNorm: 7684135 1 Application TOP TID to affected area as needed No Start Date 12/12/2013 Inactive rabeprazole 20 mg tablet,delayed release RxNorm: 280280 1 Table t(s) PO QD No Start Date 09/24/2018 Inactive Protonix 40 mg tablet,delayed release RxNorm: 778854 1 Tablet(s ) PO QD No Start Date 10/18/2012 Inactive Mobic 7.5 mg Tab RxNorm: 220152 1 Tablet(s) PO BID No Start Date 10/06 Inactive Sinemet CR 50 mg-200 mg Tab RxNorm: 339432 1 Tablet(s) PO QD No Sta rt Date 03/02/2010 Inactive Adderall XR 20 mg 24 hr Cap RxNorm: 292850 2 Capsule(s) PO QD No St art Date 02/02/2010 Inactive Medication Administered No Medication Administered data Immunizations No Immunization data Results Observation Observation Code Item Item Code Result Date S vice Location COMPLETE BLOOD COUNT [id number] WBC 7.3 10e9/L 05/29/20 12 Unknown COMPLETE BLOOD COUNT [id number] RBC 5.20 10e12/L 2011 Unknown COMPLETE BLOOD COUNT [id number] HGB 15.3 g/dL 2 Unknown COMPLETE BLOOD COUNT [id number] HCT DET 45.9 % 2 Unknown COMPLETE BLOOD COUNT [id number] MCV 88.3 fL 2 Unknown COMPLETE BLOOD COUNT [id number] MCH 29.4 pg 2 Unknown COMPLETE BLOOD COUNT [id number] MCHC 33.3 g/dL 2 Unknown COMPLETE BLOOD COUNT [id number] PLT 341 10e9/L 05/29/20 12 Unknown COMPLETE BLOOD COUNT [id number] MPV 10.1 fL 2 Unknown COMPLETE BLOOD COUNT [id number] ASHLEY % 63.2 % 2 Unknown COMPLETE BLOOD COUNT [id number] LY % 27.4 % 2 Unknown COMPLETE BLOOD COUNT [id number] MON % 7.6 % 2 Unknown COMPLETE BLOOD COUNT [id number] EOS % 1.5 % 2 Unknown COMPLETE BLOOD COUNT [id number] BASO % 0.3 % 2 Unknown COMPLETE BLOOD COUNT [id number] RDW 13.6 % 2 Unknown COMPLETE BLOOD COUNT [id number] ABS ASHLEY 4.61 10e9/L 012 Unknown COMPLETE BLOOD COUNT [id number] ABS LYMPH 2.00 10e9/L 012 Unknown COMPLETE BLOOD COUNT [id number] ABS MONO 0.55 10e9/L 012 Unknown COMPLETE BLOOD COUNT [id number] ABS EOS 0.11 10e9/L 012 Unknown COMPLETE BLOOD COUNT [id number] ABS BASO 0.02 10e9/L 012 Unknown COMPLETE BLOOD COUNT [id number] RDW-SD 43.5 fL 2 Unknown THYROID STIMULATING HORMONE 37145 TSH 1.487 uIU/ML 05/29/2012 Unknown GFR CALC [id number] GFR AA >60 ML/MIN 05/29/2012 Unknown GFR CALC [id number] GFR NON-AA >60 ML/MIN 05/29/2012 Unknown FREE T4 64015 FREE T4 1.20 NG/DL 05/29/2012 Unknown COMPREHENSIVE METABOLIC 48248 AST 17 U/L 2011 Unknown COMPREHENSIVE METABOLIC 13499 ALT 16 IU/L 2011 Unknown COMPREHENSIVE METABOLIC 54654 BUN 9 MG/DL 2011 Unknown COMPREHENSIVE METABOLIC 90975 ALBUMIN 4.1 GM/DL 2011 Unknown COMPREHENSIVE METABOLIC 92325 CHLORIDE 106 MMOL/L 05/29 Unknown COMPREHENSIVE METABOLIC 88884 BILI TOT 0.4 MG/DL 2011 Unknown COMPREHENSIVE METABOLIC 00078 ALK PHOS 87 U/L 2011 Unknown COMPREHENSIVE METABOLIC 29446 SODIUM 142 MMOL/L 05/29 Unknown COMPREHENSIVE METABOLIC 20484 CREATININE 0.79 MG/DL 05/09 Unknown COMPREHENSIVE METABOLIC 76898 CALCIUM 9.2 MG/DL 2011 Unknown COMPREHENSIVE METABOLIC 44253 POTASSIUM 3.6 MMOL/L 05/29 Unknown COMPREHENSIVE METABOLIC 88245 PROT TOT 6.5 GM/DL 2011 Unknown COMPREHENSIVE METABOLIC 94026 Glucose 78 MG/DL 2011 Unknown COMPREHENSIVE METABOLIC 35015 BICARB 27 MMOL/L 2011 Unknown COMPREHENSIVE METABOLIC 85502 ANION GAP 9 MEQ/L 2011 Unknown Procedures Procedure Codes Date PPPS, subseq visit CPT-4: G0439 08/03/2018 PPPS, subseq visit CPT-4: G0439 07/12/2016 CUR TOBACCO NON-USER CPT-4: G8457 04/15/2015 URINALYSIS NONAUTO W/O SCOPE CPT-4: 07868 07/05/2012 URINE CULTURE/ COLONY COUNT CPT-4: 65930 07/05/2012 PRESCRIP TRANSMIT VIA ERX SY CPT-4: G8553 07/05/2012 ROUTINE VENIPUNCTURE CPT-4: 39778 05/29/2012 ASSAY OF FREE THYROXINE CPT-4: 78280 05/29/2012 ASSAY THYROID STIM HORMONE CPT-4: 85935 05/29/2012 COMPREHEN METABOLIC PANEL CPT-4: 40069 05/29/2012 COMPLETE CBC W/AUTO DIFF WBC CPT-4: 99306 05/29/2012 PRESCRIP TRANSMIT VIA ERX SY CPT-4: G8553 05/29/2012 PRESCRIP TRANSMIT VIA ERX SY CPT-4: G8553 02/02/2012 PRESCRIP TRANSMIT VIA ERX SY CPT-4: G8553 05/27/2011 PRESCRIP TRANSMIT VIA ERX SY CPT-4: G8553 02/22/2011 SERVICE REQUIRED FOR PMD CPT-4: G0372 06/15/2010 ROUTINE VENIPUNCTURE CPT-4: 11594 10/20/2009 Vital Signs Date Vital 02/20/2020 Blood [...] 1: 114/66 Code: 8480-6 BMI: 25.8 Code: 57294-9 Heart Rate 1: 72 bpm Height: 5'2" [...] 1: 122/80 Code: 8480-6 BMI: 24.9 Code: 66683-7 Heart Rate 1: 100 bpm Height: 5'2" Respiratory Rate: 20 bpm Temperature: 37 .1 (C) / 98.8 (F) Weight: 136 lbs 11/03/2011 Blood Pressure 1: 104/60 Code: 8480-6 BMI: 24.1 Code: 79371-3 Heart Rate 1: 88 bpm Height: 5'2" Respiratory Rate: 20 bpm Temperature: 36 .6 (C) / 97.8 (F) Weight: 132 lbs 08/25/2011 Blood Pressure 1: 128/86 Code: 8480-6 BMI: 24.9 Code: 98818-9 Heart Rate 1: 76 bpm Height: 5'2" Respiratory Rate: 20 bpm Temperature: 36 .2 (C) / 97.2 (F) Weight: 136 lbs 05/27/2011 Blood Pressure 1: 130/90 Code: 8480-6 BMI: 25.1 Code: 69371-7 Heart Rate 1: 68 bpm Height: 5'2" [...] 1: 114/70 Code: 8480-6 BMI: 22.9 Code: 84924-5 Heart Rate 1: 92 bpm Height: 5'2" [...] N/V Encounters Encounter Performer Location Codes Date ([id number]) OFFICE/OUTPATIENT VISIT EST Diagnosis: Hemiplegia, unspecified affecting left dominant side[ICD10: G81.92] Diagnosis: Gastro-esophageal reflux disease without esophagitis[ICD10: K21.9] Diagnosis: Muscle weakness (generalized)[ICD10: M62.81] Cherri Thomas [employer] CPT-4: 42175 02/20/2020 ([id number]) OFFICE/OUTPATIENT VISIT EST Diagnosis: Left arm cellulitis[ICD10: L03.114] Diagnosis: Skin tear of left upper extremity[ICD10: S41.112A] Cherri Thomas [employer] CPT-4: 36818 12/10/2019 ([id number]) OFFICE/OUTPATIENT VISIT EST Diagnosis: Constipation[ICD10: K59.00] Diagnosis: Sacral decubitus ulcer[ICD10: L89.159] Cherri Thomas [employer] CPT-4: 58829 12/03/2019 ([id number]) OFFICE/OUTPATIENT VISIT EST 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] Diagnosis: Muscle weakness (generalized)[ICD10: M62.81] Cherri H[facility]GUIN [facility] CPT-4: 14372 10/01/2019 ([id number]) OFFICE/OUTPATIENT VISIT EST Diagnosis: Personal history of malignant neoplasm of brain[ICD10: Z85.841] Diagnosis: Muscle weakness (generalized)[ICD10: M62.81] Diagnosis: Hemiplegia, unspecified affecting left dominant side[ICD10: G81.92] Diagnosis: Contracture, 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] Cherri HOLGUIN [facility] CPT-4: 89350 06/25/2019 ([id number]) OFFICE/OUTPATIENT VISIT EST Diagnosis: Attention and concentration deficit[ICD10: R41.840] Diagnosis: Abnormal weight loss[ICD10: R63.4] Cherri HOLGUIN [employer] [facility] CPT-4: 51345 02/05/2019 ([id number]) OFFICE/OUTPATIENT VISIT EST Diagnosis: Attention and concentration deficit[ICD10: R41.840] Cherri HOLGUIN [facility] CPT-4: 19022 12/13/2018 ([id number]) OFFICE/OUTPATIENT VISIT EST Diagnosis: Laceration without foreign body of left upper arm, sequela[ICD10: S41.112S] Diagnosis: Other fatigue[ICD10: R53.83] Cherri HOLGUIN [facility] CPT-4: 15071 11/27/2018 ([id number]) OFFICE/OUTPATIENT VISIT EST Diagnosis: Gastro-esophageal reflux disease without esophagitis[ICD10: K21.9] Diagnosis: Contracture, 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] Diagnosis: Slow transit constipation[ICD10: K59.01] Cherri HOLGUIN DO [facility] CPT-4: 04723 09/25/2018 ([id number]) OFFICE/OUTPATIENT VISIT EST Diagnosis: Gastro-esophageal reflux disease without esophagitis[ICD10: K21.9] Diagnosis: Muscle weakness (generalized)[ICD10: M62.81] Maxine HOLGUIN DO [facility] CPT-4: 98055 06/22/2018 ([id number]) OFFICE/OUTPATIENT VISIT EST Diagnosis: Gastro-esophageal reflux disease without esophagitis[ICD10: K21.9] Cherri HOLGUIN DO [facility] CPT-4: 51456 04/06/2018 ([id number]) OFFICE/OUTPATIENT VISIT EST Diagnosis: Gastro-esophageal reflux disease without esophagitis[ICD10: K21.9] Maxine HOLGUIN DO [facility] CPT-4: 91164 03/06/2018 ([id number]) OFFICE/OUTPATIENT VISIT EST Diagnosis: 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] Diagnosis: Gastro-esophageal reflux disease without esophagitis[ICD10: K21.9] Diagnosis: Slow transit constipation[ICD10: K59.01] Diagnosis: Primary insomnia[ICD10: F51.01] Cherri HOLGUIN [employer] [facility] CPT-4: 02658 02/15/2018 ([id number]) OFFICE/OUTPATIENT VISIT EST Diagnosis: Muscle weakness (generalized)[ICD10: M62.81] Diagnosis: Gastro-esophageal reflux disease without esophagitis[ICD10: K21.9] Cherri HOLGUIN DO [employer] CPT-4: 20442 12/12/2017 ([id number]) OFFICE/OUTPATIENT VISIT EST Diagnosis: Nondisplaced fracture of medial malleolus of left tibia, subsequent encounter for closed fracture with delayed healing[ICD10: S82.55XG] Cherri HOLGUIN DO [facility] CPT-4: 17447 10/10/2017 OFFICE/OUTPATIENT VISIT EST Diagnosis: Acute upper respiratory infection, unspecified[ICD10: J06.9] Maxine HOLGUIN DO [facility] CPT-4: 56310 09/19/2017 ([id number]) OFFICE/OUTPATIENT VISIT EST Diagnosis: Muscle weakness (generalized)[ICD10: M62.81] Diagnosis: Other specified disorders of the skin and subcutaneous tissue[ICD10: L98.8] Cherri HOLGUIN DO [facility] CPT-4: 36603 08/04/2017 ([id number]) OFFICE/OUTPATIENT VISIT EST Diagnosis: Unspecified open wound of abdominal wall, left upper quadrant with penetration into peritoneal cavity, sequela[ICD10: S31.601S] Diagnosis: Muscle weakness (generalized)[ICD10: M62.81] Diagnosis: Personal history of malignant neoplasm of brain[ICD10: Z85.841] Cherri HOLGUIN DO [facility] CPT-4: 51829 07/12/2017 ([id number]) OFFICE/OUTPATIENT VISIT EST Diagnosis: Non-pressure chronic ulcer of skin of other sites with unspecified severity[ICD10: L98.499] Diagnosis: Tinea cruris[ICD10: B35.6] Cherri RUSHING [facility] CPT-4: 47552 05/30/2017 ([id number]) OFFICE/OUTPATIENT VISIT EST Diagnosis: Cellulitis of abdominal wall[ICD10: L03.311] Diagnosis: Cellulitis of chest wall[ICD10: L03.313] Cherri HOLGUIN DO [facility] CPT-4: 45591 05/02/2017 ([id number]) OFFICE/OUTPATIENT VISIT EST Diagnosis: Cellulitis of chest wall[ICD10: L03.313] Diagnosis: Muscle weakness (generalized)[ICD10: M62.81] Cherri HOLGUIN DO [facility] CPT-4: 69005 02/28/2017 ([id number]) OFFICE/OUTPATIENT VISIT EST Diagnosis: Cellulitis of abdominal wall[ICD10: L03.311] Cherri HOLGUIN DO [facility] CPT-4: 20968 12/06/2016 OFFICE/OUTPATIENT VISIT EST Diagnosis: Cutaneous abscess of abdominal wall[ICD10: L02.211] Diagnosis: Cellulitis of abdominal wall[ICD10: L03.311] Cherri HOLGUIN DO [facility] CPT-4: 72788 12/02/2016 ([id number]) OFFICE/OUTPATIENT VISIT EST Diagnosis: Cellulitis of abdominal wall[ICD10: L03.311] Diagnosis: Cutaneous abscess of abdominal wall[ICD10: L02.211] Cherri HOLGUIN DO [facility] CPT-4: 61316 12/01/2016 ([id number]) OFFICE/OUTPATIENT VISIT EST Diagnosis: Cutaneous abscess of abdominal wall[ICD10: L02.211] Diagnosis: Cellulitis of abdominal wall[ICD10: L03.311] Cherri HOLGUIN [facility] CPT-4: 09229 11/30/2016 ([id number]) OFFICE/OUTPATIENT VISIT EST Diagnosis: Muscle weakness (generalized)[ICD10: M62.81] Diagnosis: Slow transit constipation[ICD10: K59.01] Diagnosis: 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, 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] Cherri HOLGUIN [facility] CPT-4: 86632 10/26/2016 ([id number]) OFFICE/OUTPATIENT VISIT EST Diagnosis: Other seborrheic dermatitis[ICD10: L21.8] Cherri HOLGUIN [facility] CPT-4: 20447 09/13/2016 ([id number]) OFFICE/OUTPATIENT VISIT EST Diagnosis: Contracture, 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] Diagnosis: Nicotine dependence, cigarettes, uncomplicated[ICD10: F17.210] Diagnosis: Hemiplegia, unspecified affecting unspecified side[ICD10: G81.90] Diagnosis: Muscle weakness (generalized)[ICD10: M62.81] Cherriолег Pappasramuxuan HOLGUIN [facility] CPT-4: 33308 05/11/2016 ([id number]) OFFICE/OUTPATIENT VISIT EST Diagnosis: Muscle weakness (generalized)[ICD10: M62.81] Diagnosis: Abnormal weight loss[ICD10: R63.4] [facility]: 58081 12/23/2015 ([id number]) OFFICE/OUTPATIENT VISIT EST Diagnosis: Torticollis[ICD10: M43.6] Diagnosis: Cervicalgia[ICD10: M54.2] Diagnosis: Basal cell carcinoma of skin, unspecified[ICD10: C44.91] Cherri HOLGUIN [facility] CPT-4: 83898 09/23/2015 ([id number]) OFFICE/OUTPATIENT VISIT EST Diagnosis: Constipation[ICD9: 564.00] Diagnosis: MUSCLE WEAKNESS-GENERAL[ICD9: 728.87] Cherri HOLGUIN [facility] CPT-4: 64450 04/15/2015 ([id number]) OFFICE/OUTPATIENT VISIT EST Diagnosis: MALAISE AND FATIGUE[ICD9: 780.79] Diagnosis: 3RD DEGREE BURN[ICD9: 949.3] Cherri HOLGUIN DO [facility] CPT-4: 79536 01/14/2015 ([id number]) OFFICE/OUTPATIENT VISIT EST Diagnosis: Constipation[ICD9: 564.00] Diagnosis: MUSCLE WEAKNESS-GENERAL[ICD9: 728.87] Diagnosis: 3RD DEGREE BURN[ICD9: 949.3] Cherri HOLGUIN [facility] CPT-4: 55546 10/29/2014 ([id number]) OFFICE/OUTPATIENT VISIT EST Diagnosis: Weakness generalized[ICD9: 780.79] Diagnosis: 3RD DEGREE BURN[ICD9: 949.3] Cherri HOLGUIN [facility] CPT-4: 91497 08/20/2014 ([id number]) OFFICE/OUTPATIENT VISIT EST Diagnosis: 3RD DEGREE BURN[ICD9: 949.3] Diagnosis: DYSPHAGIA NEC[ICD9: 787.29] Cherri Pappasramuxuan CHERRI EralBelkis Jaquan XENIA [facility] CPT-4: 45115 06/04/2014 ([id number]) OFFICE/OUTPATIENT VISIT EST Diagnosis: 3RD DEGREE BURN[ICD9: 949.3] Diagnosis: Complication of skin graft[ICD9: 996.52] Diagnosis: TOBACCO USE DISORDER[ICD9: 305.1] Cherri Mianrl Franklin EarlBelkis EZIO [facility] CPT-4: 36747 05/06/2014 ([id number]) OFFICE/OUTPATIENT VISIT EST Diagnosis: CELLULITIS[ICD9: 682.9] Cherri Mianrl MACHUCA EarlBelkis LAWSON BRUNSON [facility] CPT-4: 41405 08/07/2013 ([id number]) OFFICE/OUTPATIENT VISIT EST Diagnosis: MUSCLE WEAKNESS-GENERAL[ICD9: 728.87] Diagnosis: MALAISE AND FATIGUE[ICD9: 780.79] Diagnosis: ABNORMALITY OF GAIT[ICD9: 781.2] Cherri HOLGUIN [employer] CPT-4: 85666 05/23/2013 ([id number]) OFFICE/OUTPATIENT VISIT EST Diagnosis: MALAISE AND FATIGUE[ICD9: 780.79] Diagnosis: MUSCLE WEAKNESS-GENERAL[ICD9: 728.87] Diagnosis: HEMIPLEGIANOS SIDE NOS[ICD9: 342.90] Diagnosis: 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] Cherri HOLGUIN [employer] CPT-4: 06771 04/25/2013 ([id number]) OFFICE/OUTPATIENT VISIT EST Diagnosis: MUSCLE WEAKNESS-GENERAL[ICD9: 728.87] Diagnosis: ABNORMALITY OF GAIT[ICD9: 781.2] Diagnosis: MALAISE AND FATIGUE[ICD9: 780.79] Cherri BYERS Noemi Martha HOLGUIN [employer] CPT-4: 28233 01/22/2013 OFFICE/OUTPATIENT VISIT EST Diagnosis: MALAISE AND FATIGUE[ICD9: 780.79] Diagnosis: MUSCLE WEAKNESS-GENERAL[ICD9: 728.87] Diagnosis: HEMIPLEGIANOS SIDE NOS[ICD9: 342.90] Diagnosis: ABNORMALITY OF GAIT[ICD9: 781.2] Cherri HOLGUIN [employer] [facility] CPT-4: 95198 10/18/2012 OFFICE/OUTPATIENT VISIT EST Diagnosis: ABNORMALITY OF GAIT[ICD9: 781.2] Diagnosis: MALAISE AND FATIGUE[ICD9: 780.79] Diagnosis: MUSCLE WEAKNESS-GENERAL[ICD9: 728.87] Cherri Mianramuxuan ALLEN RYLIE Martha HOLGUIN [employer] CPT-4: 02046 09/25/2012 OFFICE/OUTPATIENT VISIT EST Diagnosis: CERVICALGIA[ICD9: 723.1] Diagnosis: ABNORMALITY OF GAIT[ICD9: 781.2] Diagnosis: MUSCLE WEAKNESS-GENERAL[ICD9: 728.87] Cherri Mianramuxuan ALLEN YOUNGBLOOD EarlBelkis EZIO [employer] [facility] CPT-4: 15305 08/24/2012 ([id number]) OFFICE/OUTPATIENT VISIT EST Diagnosis: URINARY TRACT INFECTION[ICD9: 599.0] Diagnosis: Altered mental state[ICD9: 780.97] Diagnosis: MUSCLE WEAKNESS-GENERAL[ICD9: 728.87] Diagnosis: HEMIPLEGIANOS SIDE NOS[ICD9: 342.90] Diagnosis: Cervicalgia[ICD9: 723.1] Cherri CARIAS [facility] CPT-4: 10390 07/27/2012 OFFICE/OUTPATIENT VISIT EST Diagnosis: URINARY TRACT INFECTION[ICD9: 599.0] Diagnosis: Weakness generalized[ICD9: 780.79] Diagnosis: FEBRILE ILLNESS[ICD9: 780.60] Diagnosis: Vision disturbance[ICD9: 368.9] Tasneem Esquivel CHERRI HOLGUIN [facility] CPT-4: 70638 07/05/2012 OFFICE/OUTPATIENT VISIT EST Diagnosis: CONJUNCTIVITIS NOS[ICD9: 372.30] Diagnosis: MUSCLE WEAKNESS-GENERAL[ICD9: 728.87] Diagnosis: HEMIPLEGIANOS SIDE NOS[ICD9: 342.90] Diagnosis: ABNORMALITY OF GAIT[ICD9: 781.2] [facility]PT-[facility]: 66208 05/29/2012 ([id number]) OFFICE/OUTPATIENT VISIT EST Diagnosis: MUSCLE WEAKNESS-GENERAL[ICD9: 728.87] Diagnosis: HEMIPLEGIANOS SIDE NOS[ICD9: 342.90] Diagnosis: ABNORMALITY OF GAIT[ICD9: 781.2] Diagnosis: DYSPEPSIA[ICD9: 536.8] Diagnosis: GERD[ICD9: 530.81] [facility] CPT-4: 12570 02/02/2012 ([id number]) OFFICE/OUTPATIENT VISIT EST Diagnosis: MUSCLE WEAKNESS-GENERAL[ICD9: 728.87] Diagnosis: ABNORMALITY OF GAIT[ICD9: 781.2] Diagnosis: GERD[ICD9: 530.81] Cherri HOLGUIN [facility] CPT-4: 54336 11/03/2011 OFFICE/OUTPATIENT VISIT EST Diagnosis: MUSCLE WEAKNESS-GENERAL[ICD9: 728.87] Diagnosis: ABNORMALITY OF GAIT[ICD9: 781.2] Diagnosis: VOMITING ALONE[ICD9: 787.03] Diagnosis: GERD[ICD9: 530.81] Cherri PAPPASNDER DO [facility] CPT-4: 22191 08/25/2011 OFFICE/OUTPATIENT VISIT EST Diagnosis: CONJUNCTIVITIS NOS[ICD9: 372.30] [facility]ri [facility] CPT-4: 20185 05/27/2011 OFFICE/OUTPATIENT VISIT EST Diagnosis: MUSCLE WEAKNESS-GENERAL[ICD9: 728.87] Diagnosis: ABNORMALITY OF GAIT[ICD9: 781.2] Cherri PAPPASNDER DO [facility] CPT-4: 29944 04/15/2011 OFFICE/OUTPATIENT VISIT EST Diagnosis: MALAISE AND FATIGUE[ICD9: 780.79] Diagnosis: MUSCLE WEAKNESS-GENERAL[ICD9: 728.87] Diagnosis: DEPRESSIVE DISORDER NEC[ICD9: 311] Diagnosis: ABNORMALITY OF GAIT[ICD9: 781.2] Cherri MACHUCA SBelkis ORENDER DO [facility] CPT-4: 14960 03/22/2011 OFFICE/OUTPATIENT VISIT EST Cherri Ezio MACHUCA SBelkis ORE NDER DO [facility] CPT- 4: 45185 02/22/2011 ([id number]) OFFICE/OUTPATIENT VISIT EST Cherriолег MELO [facility] CPT-4: 96252 01/26/2011 ([id number]) OFFICE/OUTPATIENT VISIT, EST Cherri Mianramuxuan [facility] CPT-4: 74395 06/15/2010 ([id number]) OFFICE/OUTPATIENT VISIT, EST Cherri Pathakxuan [facility] CPT-4: 10823 05/04/2010 ([id number]) OFFICE/OUTPATIENT VISIT, EST Cherri Pathakxuan [facility] CPT-4: 00289 03/03/2010 ([id number]) OFFICE/OUTPATIENT VISIT, EST Cherri Mianramuxuan [facility] CPT-4: 83332 10/20/2009 Plan of Care Planned Activity Notes Codes Status Date Visit Diagnosis Plan: Hemiplegia, unspecified affectin g left dominant side Discussion: Shaneka.me video visit done with nurse at [place] Doing well with new Wheel Chair Follow Up: 2 months ICD-9 : 342.91 ICD-10 : G81.92 02/20/2020 Visit Diagnosis Plan: Gastro-esophageal reflux disease without esophagitis Discussion: Stable ICD-9 : 530.81 ICD-10 : K21.9 02/20/2020 Visit Diagnosis Plan: Left arm cellulitis Discussion: Shaneka. video visit done with nurse at [place] Start Keflex Continue with clear tegaderm dressing and brian wrap and ice Notify if any worsening ICD-9 : 682.3 ICD-10 : L03.114 12/10/2019 Appointment: Cherri Holguintel: [address] [place] [address] 12/10/2019 Visit Diagnosis Plan: Sacral decubitus ulcer Discussio n: Wound Care seeing this week Follow Up: 2 months ICD-9 : 707.03 ICD-10 : L89.159 12/03/2019 Visit Diagnosis Plan: Constipation Discussion: Shaneka. 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 FOLLOW UP 06/25/2019 [...] ICD-10 : R41.840 02/05/2019 Appointment: Cherri Holguintel: [address] [place], [place] [id number] [place] Confirmed with Nara Hankins 02/02 @ 11:07 am FOL LOW UP 02/05/2019 Appointment: Cherri Holguintel: [address] [place], [place] [address] [place] NO SHOW 01/24/2019 Visit Diagnosis Plan: Attention and concentration defi cit Discussion: Trial of strattera 10mg daily for 1 week then 25mg daily Recheck 6 weeks Stimulants have caused weight loss in past as patient is also poor, picky eater so with the stimulants her appetite worsens even more ICD-9 : 799.51 ICD-10 : R41.840 12/13/2018 Appointment: Cherri Holguintel: [address] [place] [id number] [place] confirmed with Morena FOLLOW UP 12/13/2018 [...] ICD-10 : R53.83 11/27/2018 Appointment: Cherri Holguintel: [facility] [place] confirmed with Karlee FOLLOW UP 11/27/2018 [...] : K59.01 09/25/2018 Appointment: Cherri Holguin WPtel: [facility] [place] FOLLOW UP 09/25/2018 Visit Diagnosis Plan: [...] 08/03/2018 Visit Diagnosis Plan: Encounter for [facility] adult medical examination with abnormal findings Discussion: [...] 08/03/2018 Appointment: Maxine Glasgow [address] Annual Well Visit 08/03/2018 Visit Diagnosis [...] : K21.9 06/22/2018 App[facility]ment[facility] [facility] 06/22/2018 Visit Diagnosis Plan: Gastro-esophageal reflux disease without esophagitis Discussion: Continue aciphex at 20m po daily Recheck 2mos ICD-9 : 530.81 ICD-10 : K21.9 04/06/2018 Appointment: Cherri [facility]gu[facility] [phone] [facility] FO[facility] 04/06/2018 Patient Education: Patient Medication Summary Completed 04/06/2018 Appointment: Cherri Holguin [facility]Ptel[facility] [phone] [facility] [place] RESCHEDULED 03/07/2018 Visit Diagnosis Plan: Gastro-esophageal reflux disease without esophagitis Discussion: patient had aciphex and prevacid on med list. order written out on patient's list to only give the aciphex as prescribed and not both. follow up in one month to assess medication efficacy and constipation. ICD-9 : 530.81 ICD-10 : K21.9 03/06/2018 Appointment: Maxine Glasgow [address] [facility] [facility] 03/06/2018 Patient Education: Patient Medication [...] : F51.01 02/15/2018 Appointment: Cherri Holguin WPtel: [address] [place] [address] [place] FOLLOW UP 02/15/2018 Patient Education: Patient Medication Summary Completed 02/15/2018 Appointment: Cherri Holguin WPtel: [address] [place], [place] [phone] [facility] transportation called, stating that the patient [...] : M62.81 12/12/2017 Appointment: Cherri Holguin WPtel: [address] [place] [address] [place] FOLLOW UP 12/12/2017 Patient Education: Patient Medication Summary Completed 12/12/2017 Visit Diagnosis Plan: Nondisplaced fract ure of medial malleolus of left tibia, subsequent encounter for closed fracture with delayed healing Discussion: Add miacalcin nasal spray for next 2mos Fwup with ortho Follow Up: 2 months ICD-9 : V54.16 ICD-10 : S82.55XG 10/10/2017 Appointment: Cherri Holguin WPtel: [facility] [place] FOLLOW UP 10/10/2017 Patient Education: Patient Medication Summary Completed 10/10/2017 Appointment: Cherri Holguin WPtel: [address] [place] [address] [place] RESCHEDULED 10/04/2017 Referral: Alvarado Mercado WPtel: [address] [address] [place] Referral Initiated 10/04/2017 Visit Diagnosis Plan: Acute upper respiratory infectio n, unspecified Discussion: continue with tespavel perlmerle as needed. increase fluids. notify if worsening symptoms including shortness of breath or fever. call or rtc later this week if no improvement. instructed patient to perform deep breathing exercises at home. ICD-9 : 465.9 ICD-10 : J06.9 09/19/2017 Appointment: Maxine Glasgow [address] [place] [address] ACUTE ILLNESS 09/19/2017 Patient Education: Patient Medication Summary Completed 09/19/2017 Appointment: Cherri Holguin WPtel: [address] [place], [place] [phone] [place] CANCELED 08/16/2017 Visit Diagnosis Plan: Muscle [...] : L98.8 08/04/2017 Appointment: Cherri Holguin WPtel: [address] [place], [place] [phone] [place] FOLLOW UP 08/04/2017 Patient Education: Patient [...] : Z85.841 07/12/2017 Appointment: Cherri Holguin WPtel: [address] [place], [place] [id number] Follow Up 07/12/2017 Patient [...] : B35.6 05/30/2017 Appointment: Cherri Holguin WPtel: [address] [place] [address] FOLLOW UP 05/30/2017 Patient Education: Patient Medication Summary Completed 05/30/2017 Visit Diagnosis Plan: Cellulitis of abdominal wall Dis cussion: Finish keflex Referral to wound care ICD-9 : 682.2 ICD-10 : L03.311 05/02/2017 Appointment: Cherri Holguin WPtel: [address] [place], [place] [phone] FOLLOW UP 05/02/2017 Patient Education: Patient Medication Summary Completed 05/02/2017 Referral: Remigio Valdes WPtel: [address] [place], [place] [phone] [place] Referral Initiated 04/05/2017 Visit Diagnosis Plan: Cellulitis of chest wall Discuss ion: Keflex x1 week Continue daily dressing changes ICD-9 : 682.2 ICD-10 : L03.313 02/28/2017 Visit Diagnosis Plan: Muscle weakness (generalized) Di scussion: Stable Follow Up: 2 months ICD-9 : 728.87 ICD-10 : M62.81 02/28/2017 Appointment: Cherri Holguin WPtel: [facility] 02/24 confirmed~sl FOLLOW UP 02/28/2017 Patient Education: Patient Medication Summary Completed 02/28/2017 Visit Diagnosis Plan: Cellulitis of abdominal wall Dis cussion: Healing and improving so will finish all of clindamycin and monitor wounds for any worsening or recurrence ICD-9 : 682.2 ICD-10 : L03.311 12/06/2016 Appointment: Cherri Holguin WPtel: [phone] [facility] WORK IN 12/06/2016 Patient Education: Patient Medication Summary Completed 12/06/2016 Visit Diagnosis Plan: Cutaneous abscess of abdominal w all Discussion: Continue clindamycin and dressing changes To ER this weekend if worsens Fwup with me in 4 days for recheck ICD-9 : 682.2 ICD-10 : L02.211 12/02/2016 Appointment: Cherri Holguin WPtel: [phone] [facility] FOLLOW UP 12/02/2016 Patient Education: Patient Medication [...] : L02.211 12/01/2016 Appointment: Cherri Holguintel: [address] [facility] [place] WORK IN 12/01/2016 Patient Education: Patient Medication Summary Completed 12/01/2016 Visit Diagnosis Plan: Cutaneous abscess of abdominal w all Discussion: Copious amounts of pus expressed until bloody discharge Start clindamycin Recheck tomorrow Erythema outline marked Follow Up: 1 days ICD-9 : 682.2 ICD-10 : L02.211 11/30/2016 Appointment: Cherri Holguin WPtel: [address] [place], [place] [phone] 11/29 confirmed`sl FOLLOW UP 11/30/2016 Patient Education: Patient Medication Summary Completed 11/30/2016 Appointment: Cherri Holguin WPtel: [address] [place], [place] [phone] 11/10 scalp looks ok will discuss at [...] : K59.01 10/26/2016 Appointment: Cherri Holguin WPtel: [address] [place], [place] [phone] ACUTE ILLNESS 10/26/2016 Patient Education: Patient Medication Summary Completed 10/26/2016 Patient Education: Patient Medication Summary Completed 10/21/2016 Care Plan: CT HEAD/BRAIN W/O DYE LOINC : 23478-6 Pending 10/21/2016 Visit Diagnosis Plan: Other seborrheic dermatitis Disc ussion: Topical ketoconazole shampoo alternating with selsun blue Follow Up: 2 months ICD-9 : 706.3 ICD-10 : L21.8 09/13/2016 Appointment: Cherri Holguin WPtel: [address] [place], [place] [phone] 09/09 confirm`sl FOLLOW UP 09/13/2016 Patient Education: Patient Medication Summary Completed 09/13/2016 Appointment: Cherri Holguin WPtel: [address] [place], [place] [phone] [place] CANCELED 07/13/2016 Visit Plan: Low-dose CT scan-45 PPD of C hest Check hemoccult Discussed updated CT of head to recheck meningioma Zostavax vaccine Will obtain last colonoscopy results Update lab 07/12/2016 Appointment: Cherri Holguin WPtel: [address] [place], [place] [phone] 07/08 confirmed~sl Annual Well Visit 07/12/2016 Patient Education: Patient Medication Summary Completed 07/12/2016 Visit Plan: Gets teeth extracted next mo nth then getting fitted for dentures so some of poor appetite is due to inability to eat certain things Continue current meds Defers flu shot 05/11/2016 Appointment: Cherri Holguin WPtel: [address] [place], [place] [phone] 05/10 confirmed~sl FOLLOW UP 05/11/2016 Patient Education: Patient Medication Summary Completed 05/11/2016 Visit Plan: Discussed nutrition and poss ible shakes as supplement until gets teeth completely pulled and fitted for full dentures Continue current meds Did have right scalp lesion removed 12/23/2015 Appointment: Cherri Holguin WPtel: [address] [place], [place] [phone] 12/21 confirmed-sp FOLLOW UP 12/23/2015 Patient Education: Patient Medication Summary Completed 12/23/2015 Referral: Tabitha Messer WPtel: [facility] [address] [facility] [place] Spoke with Kayli at [facility] and gave her appt information Initiated 10/07/2015 Visit Plan: Start PT for ROM of neck Dis cussed milkshake in place of meal if does not eat at least 20% of meal--patient states she wants to lose weight and does not like the food served there See dermatology for removal of scalp lesion 09/23/2015 Appointment: Cherri Holguin WPtel: [address] [place], [place] [phone] 09/22/15 appt confirmed with Amber at [facility] FOLLOW UP 09/23/2015 Patient Education: Patient Medication Summary Completed 09/23/2015 Visit Plan: Stop miralax and senokot-s S tart dulcolax daily Patient asking for PT and OT again but admits they don't really help/she doesn't gain much from them 04/15/2015 Appointment: Cherri Holguin WPtel: [address] [place] [place] [phone] 04/11 confirmed with [facility] FOLLOW UP 04/15/2015 Patient Education: Patient Medication Summary Completed 04/15/2015 Visit Plan: Check CBC, CMP, TSH, free T4 , Vit D Continue current meds 01/14/2015 Appointment: Cherri Holguin WPtel: [address] [place], [place] [phone] ACUTE ILLNESS 01/14/2015 Patient Education: Patient Medication Summary Completed 01/14/2015 Visit Plan: Change to Senokot-S 2 po BID Add miralax Has been released by burn center for now 10/29/2014 Appointment: Cherri Holguin WPtel: [address] [place], [place] [phone] 10/28 with Madiha FOLLOW UP 10/29/2014 Patient Education: Patient Medication Summary Completed 10/29/2014 Visit Plan: Patient is wheelchair bound now Continue current meds Patient following with [facility] end of 08/20/2014 Appointment: Cherri Holguin WPtel: [address] [place] [address] MLP rescheduled due to cold weather 08/19 message with Madiha at [facility] FOLLOW U P 08/20/2014 Patient Education: Patient [...] in [place] 06/04/2014 Appointment: Cherri Holguin WPtel: [address] [place], [place] [phone] FOLLOW UP 06/04/2014 Patient Education: Patient Medication Summary Completed 06/04/2014 Visit Plan: Patient sees burn center nex t week Explained importance of taking nutren routinely as needs nutrition Increase prilosec to 20mg po BID Smoking Cessation 05/06/2014 Appointment: Cherri Holguin WPtel: [address] [place], [place] [phone] 05/03 vm on patient phone 05/03 message with Maria L at [facility] Follow Up 05/06/2014 Patient Education: Patient Medication Summary Completed 05/06/2014 Visit Plan: Finish abx Brian wrap to left LE and elevate 08/07/2013 Appointment: Cherri Holguin WPtel: [address] [place], [place] [phone] Urgent/Quick Care Follow Up 07/10 Patient Education: Patient Medication Summary Completed 08/07/2013 Appointment: Cherri Holguin WPtel: [address] [place], [place] [phone] 07/18 appointment confirmed with patient 07/19 NO SHOW FOLLOW UP 07/19/2013 Visit Plan: Continue current meds Contin ue PT 05/23/2013 Appointment: Cherri Holguin WPtel: [address] [place], [place] [phone] 05/22 vm...appt confirmed FOLLOW UP 2012 Patient Education: Patient Medication Summary Completed 05/23/2013 Visit Plan: Long discussion about need f or 24hr care Pt wants to go home 04/25/2013 Appointment: Cherri Holguin WPtel: [address] [place], [place] [phone] Appt confirmed with Augusto at [facility] Follow Up 04/25/2013 Patient Education: Patient Medication Summary Completed 04/25/2013 Appointment: Cherri Holguin WPtel: [address] [place], [place] [phone] 04/20 message left at [facility] FOLLOW UP 04/23/2013 Visit Plan: Continue current meds 01/22/2013 Appointment: Cherri Holguin WPtel: [address] [place], [place] [phone] 01/22 vm left FOLLOW UP 01/22/2013 Patient Education: Patient Medication Summary Completed 01/22/2013 Appointment: Cherri Holguin WPtel: [address] [place], [place] [phone] 11/20 left message...patient called in a t 10:00am and said she was unable to get to her car. She rescheduled for 11/27 11am 11/24 left message 11/29 called to confirm, patient cancell ed due to no ride from [email or web address]. patient will call [facility] and see when they can bring her and then call us to schedule FOLLOW UP 11/30/2012 Visit Plan: Going to go home at the end of week with caregiver Continue current meds 10/18/2012 Appointment: Cherri Holguin WPtel: [address] [place], [place] [phone] 10/17 appt confirmed with Reyna FOLLOW UP 10/18/2012 Patient Education: Patient Medication Summary Completed 10/18/2012 Visit Plan: Continue and finish PT Sultana nue current meds Fwup October 19 or --pts 100 days is up October 21 09/25/2012 Appointment: Cherri Holguintel: [address] [place], [place] [phone] [place] worked in since shelter just droppe d her off. She was on shedule at one point but showed it was cancelled WORK IN Appointment: Cherri Holguin WPtel: [address] [place], [place] [phone] 07/17 Cancelled 09/25 Appt - Patient has appointments on 07/08 & 07/27 FOLLOW UP 09/25/2012 Patient Education: Patient Medication Summary Completed 09/25/2012 Visit Plan: Continue current meds Pt wan ts to go home when her 100 days are up 08/24/2012 Appointment: Cherri Holguin WPtel: [address] [place], [place] [phone] FOLLOW UP 08/24/2012 Patient Education: Patient Medication Summary Completed 08/24/2012 Visit Plan: DC tramadol Repeat UA and ch edu UDS Start PT for neck Discussed neurology eval, but pt has been to several in past and even [facility] 07/27/2012 Appointment: Cherri Holguin WPtel: [address] [place], [place] [phone] FOLLOW UP 07/27/2012 Patient Education: Patient Medication Summary Completed 07/27/2012 Appointment: Cherri Holguin WPtel: [address] [place], [place] [phone] 07/17 - left message..07/17 left message with Antonella at [facility] pt has appt tomorrow and on I think the 07/18 appt was scheduled prior to hospitalization. 07/18 no showed. just entered shelter so no show is forgiven FOLLOW UP 07/18/2012 Appointment: Tasneem Esquivel WPtel: [address] [place], [place] [phone] ACUTE ILLNESS 07/05/2012 Patient Education: Patient Medication Summary Completed 07/05/2012 Appointment: Cherri Holguin WPtel: [address] [place], [place] [phone] FOLLOW UP 05/29/2012 Patient Education: Patient Medication Summary Completed 05/29/2012 Appointment: Cherri Holguin WPtel: [address] [place], [place] [phone] [place] FOLLOW UP 02/02/2012 Patient Education: Patient Medication Summary Completed 02/02/2012 Visit Plan: Continue current meds Check CBC, CMP, TSH, Free T4, B12 11/03/2011 Appointment: Cherri Holguin WPtel: [address] [place] [address] FOLLOW UP 11/03/2011 Patient Education: Patient Medication Summary Completed 11/03/2011 Visit Plan: Adderall refilled Continue c urrent meds 08/25/2011 Appointment: Cherri Holguin WPtel: [address] [place] [address] FOLLOW UP 08/25/2011 Patient Education: Patient Medication Summary Completed 08/25/2011 Appointment: Cherri Holguin WPtel: [address] [place] [address] Appointment was confirmed. FOLLOW UP 08/16 Visit Plan: Esther is eye doctor. Will u se eye drop.(Cipro as she claims allergy (nausea). Pt. is accompanied by "grounds keepers" from [facility]. Written instructions given for pt. to be seen in follow up by Esther. Written RX also given to pt. for cipro eye drops. Pt. is instructed that the RX has been electronically sent to [facility]. 05/27/2011 Appointment: Tasneem Esquivel WPtel: [address] [place] [address] ACUTE ILLNESS 05/27/2011 Patient Education: Patient Medication Summary Completed 05/27/2011 Visit Plan: Continue increased dose of A dderall 04/15/2011 Appointment: Cherri Holguin WPtel: [address] [place] [address] [place] FOLLOW UP 04/15/2011 Patient Education: Patient Medication Summary Completed 04/15/2011 Appointment: Cherri Holguin WPtel: [address] [place] [address] FOLLOW UP 03/22/2011 Patient Education: Patient Medication Summary Completed 03/22/2011 Appointment: Cherri Holguin WPtel: [address] [place], [place] [phone] [place] FOLLOW UP 02/25/2011 Visit Plan: Trial of Wellbutrin XL 150mg q AM 02/22/2011 Appointment: Cherri Holguin WPtel: [address] [place], [place] [phone] FOLLOW UP 02/22/2011 Patient Education: Patient Medication Summary Completed 02/22/2011 Visit Plan: Continue PT Add Cymbalta 30m g daily 01/26/2011 Appointment: Cherri Holguin WPtel: [address] [place] [address] FOLLOW UP 01/26/2011 Patient Education: Patient Medication Summary Completed 01/26/2011 Visit Plan: Cont current meds and PT Exa m for Power chair completed Adderall rx refilled 06/15/2010 Appointment: Cherri Holguin WPtel: [address] [place] [address] ESTABLISHED PATIENT 06/15/2010 Patient Education: Patient Medication Summary Completed 06/15/2010 Visit Plan: To rehab today for PT/OT--I will follow on rehab unit 05/04/2010 Appointment: Cherri Holguin WPtel: [address] [place], [place] [phone] FOLLOW UP 05/04/2010 Patient Education: Patient Medication Summary Completed 05/04/2010 Visit Plan: Cont PT Cont Forteo Long dis cussion about living home--will discuss with PT when finishes this session 03/03/2010 Appointment: Cherri Holguin WPtel: [address] [place] [address] FOLLOW UP 03/03/2010 Patient Education: Patient Medication Summary Completed 03/03/2010 Visit Plan: EGD by Dr. Dang Pt agrees to restart Forteo 10/20/2009 Appointment: Cherri Holguin WPtel: [address] [place], [place] [phone] FOLLOW UP 10/20/2009 Patient Education: Patient Medication Summary Completed 10/20/2009 Referral: Antonio Gandhi WPtel: [address] [id number] [place] Referral Initiated Instructions Comment . Low-dose [...] meds Patient [facility] end of October . Patient is eating [...] been to several in past and even [facility] . Continue current meds Check CBC, CMP, TSH, Free T4, B12 . Adderall refilled Continue current meds . 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 Will use eye bj p.(Cipro as she claims allergy (nausea). Pt. is accompanied by "grounds keepers" from [facility]. Written instructions given for pt. to [...]
--- OUTSIDE RECORDS SUMMARY | 2020-03-05 20:46 | XMS REPORT | CCD ---
Author Author Rosario Holguin D.O. Organization [facility] Address [address] [place] [address] Phone Care Team Providers Care Lining Stamper Name Role Phone Cherri Holguin D.O., PP Unavailable CCM Unavailable Summary Purpose Interface Exchange Insurance Providers Payer name Policy type / Coverage type Covered democrat ID Effective Begin Date Effective End Date WPS MEDICARE PART B [place] Medicare Part B [id number] Unknown AARP Medicare Part B [id number] Unknown Family History Family History data not found Social History Social History Element Codes Description Effective Dates Tobacco history SNOMED CT: 0597084 Former smoker 04/15/2015 Allergies, Adverse Reactions, Alerts Substance Reaction Codes Entered Date Inactivated Date Status _ Unknown 03/03/2010 No Inactive Date Active * NO KNOWN FOOD ALLERGIES Unknown 10/20/2009 No Inactiv e Date Active _ Unknown 10/20/2009 No Inactive Date Active Erythromycin nausea, _ Unknown 10/20/2009 No Inactive Date Active Problems Condition Codes Effective Dates Condition Status Left arm cellulitis ICD-9: 682.3 ICD-10: L03.114 12/10/2019 Active Skin tear of left upper extremity ICD-9: 880.03 ICD-10: S41.112A 12/10/2019 Active Constipation ICD-9: 564.00 ICD-10: K59.00 12/03/2019 Active Sacral decubitus ulcer ICD-9: 707.03 ICD-10: L89.159 12/03/2019 Active Muscle weakness (generalized) ICD-9: 728.87 ICD-10: M62.81 10/29/2014 Active 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 ICD-9: 359.8 9 ICD-10: G73.7 10/01/2019 Active Contracture, left hand ICD-9: 718.44 ICD-10: M24.542 05/10/2016 Active Hemiplegia, unspecified affecting left dominant side I CD-9: 342.91 ICD-10: G81.92 08/03/2018 Active Muscle weakness (generalized) ICD-9: 780.79 ICD-10: [...] fatigue ICD-9: 780.79 ICD-10: R53.83 11/27/2018 Active Gastro-esophageal reflux disease without esophagitis I CD-9: 530.81 ICD-10: K21.9 12/12/2017 Active Slow transit constipation ICD-9: 564.01 ICD-10: [...] Instructions Tessalon Perles 100 mg capsule RxNorm: 137160 1 Capsule(s) Oral Q8H as needed 12/03/2019 No Stop Date Active glycerin (adult) rectal suppository RxNorm: 1 Cardenas ppository Rectal and Tuesday12/03/2019 No Stop Date Active cyanocobalamin (vit B-12) 1,000 mcg/mL injection solution Rx Norm: 438281 1 Milliliter(s) Intramuscular every 2 weeks 06/26/2019 09/24/2019 Inacti ve cyanocobalamin (vit B-12) 1,000 mcg/mL injection solution Rx Norm: 780262 1 Milliliter(s) Intramuscular every 2 weeks 06/26/2019 06/25/2019 Inacti ve bisacodyl 10 mg rectal suppository RxNorm: 262608 1 Sup pository Rectal QD as needed 05/10/2019 No Stop Date Active glycerin (adult) rectal suppository RxNorm: 4349778 1 Suppositor y RTL BIW 07/25/2018 12/02/2019 Inactive rabeprazole 20 mg tablet,delayed release RxNorm: 795877 1 Table t(s) PO QD 03/01/2018 05/29/2018 Inactive replaces lansoprazol e Adderall XR 10 mg capsule,extended release RxNorm: 072734 1 Cap teresa(s) PO QAM 10/20/2017 12/19/2017 Inactive Tessalon Perles 100 mg capsule RxNorm: 244946 1 Capsule (s) PO TID as needed for cough 09/16/2017 09/30/2019 Inactive Cymbalta 30 mg capsule,delayed release RxNorm: 172903 1 Capsule (s) PO QD 08/17/2017 12/02/2019 Inactive nystatin 100,000 unit/gram topical powder RxNorm: 970512 1 Appl ication TOP BID 08/16/2017 02/14/2018 Inactive Adderall XR 10 mg capsule,extended release RxNorm: 987419 1 Cap teresa(s) PO QAM 08/11/2017 09/09/2017 Inactive Adderall XR 10 mg capsule,extended release RxNorm: 636518 1 Cap teresa(s) PO QAM 08/04/2017 08/03/2017 Inactive Adderall XR 10 mg capsule,extended release RxNorm: 735627 1 Cap teresa(s) PO QAM 08/04/2017 08/10/2017 Inactive Bactrim DS 800 mg-160 mg tablet RxNorm: 951156 1 Tablet(s) PO BID 1 08/28/2016 07/07/2017 Inactive clindamycin 300 mg capsule RxNorm: 447125 2 Capsule(s) PO TID doses for today and tomorrow 11/30/2016 05/01/2017 Inactive ketoconazole 2 % shampoo RxNorm: 315869 1 Application TOP twice a week 09/14/2016 05/01/2017 Inactive hydrocodone 5 mg-acetaminophen 325 mg tablet RxNorm: 787809 1 Tablet(s) PO Q6H as needed for pain 07/12/2016 05/01/2017 Inactive Cipro 250 mg tablet RxNorm: 952283 1 Tablet(s) PO BID 09/29/201509/09 Inactive cefuroxime axetil 250 mg tablet RxNorm: 555647 1 Tablet(s) PO BID 0 09/10/2015 09/16/2015 Inactive Micro-K 8 mEq capsule,extended release RxNorm: 934351 1 Capsule (s) PO QD 08/20/2015 08/16/2017 Inactive Micro-K 8 mEq capsule,extended release RxNorm: 674436 1 Capsule (s) PO QD 08/20/2015 08/19/2015 Inactive Adderall XR 20 mg capsule,extended release RxNorm: 078216 1 Cap teresa(s) PO QAM 04/30/2015 02/11/2016 Inactive hydroxyzine HCl 25 mg tablet RxNorm: 432375 1 Tablet(s) PO Q6H as needed for itching/hives 04/02/2015 09/12/2016 Inactive Miralax 17 gram oral powder packet RxNorm: 807200 17 Gr am(s) PO BID for constipation 02/26/2015 02/11/2016 Inactive Adderall XR 20 mg capsule,extended release RxNorm: 351145 1 Cap teresa(s) PO QAM 07/09/2014 08/07/2014 Inactive Adderall 20 mg tablet RxNorm: 552714 2 Tablet(s) PO QD 02/04/201408/2013 Inactive [AttnRPh: Saving apply/adjudicate RxGRP: SG20 RxBIN:[id number] RxPCN: ID#:[id number]] triamcinolone acetonide 0.1 % topical cream RxNorm: 1294117 1 Application TOP BID to affected area as needed 12/12/2013 01/13/2015 Inactive [ AttnRPh: Saving apply/adjudicate RxGRP:SG20 RxBIN:[id number] RxPCN: ID#:[id number]] Adderall 20 mg tablet RxNorm: 011683 2 Tablet(s) PO QD 12/04/2013 Inactive [AttnRPh: Saving apply/adjudicate RxGRP: SG20 RxBIN:[id number] RxPCN: ID#:[id number]] Adderall 20 mg tablet RxNorm: 391531 2 Tablet(s) PO QD 12/03/2013 Inactive [AttnRPh: Saving apply/adjudicate RxGRP: SG20 RxBIN:[id number] RxPCN: ID#:[id number]] Adderall 20 mg tablet RxNorm: 036656 2 Tablet(s) PO QD 11/02/2013 Inactive Adderall 20 mg tablet RxNorm: 450911 2 Tablet(s) PO QD 10/01/2013 Inactive meloxicam 7.5 mg tablet RxNorm: 168390 1 Tablet(s) PO QD 09/24/2013 0 08/19/2014 Inactive lisinopril 20 mg tablet RxNorm: 749448 1 Tablet(s) PO QD 09/24/2013 0 08/19/2014 Inactive Protonix 40 mg tablet,delayed release RxNorm: 663351 1 Tablet(s ) PO QD 09/24/2013 08/19/2014 Inactive Adderall 20 mg tablet RxNorm: 751652 2 Tablet(s) PO QD 08/29/2013 Inactive Adderall 20 mg tablet RxNorm: 965300 2 Tablet(s) PO QD 08/02/2013 Inactive hydroxyzine HCl 25 mg tablet RxNorm: 212313 1 Tablet(s) PO Q6H as needed 06/29/2013 08/19/2014 Inactive Adderall 20 mg tablet RxNorm: 975035 2 Tablet(s) PO QD 05/22/2013 Inactive Protonix 40 mg tablet,delayed release RxNorm: 482607 1 Tablet(s ) PO QD 05/15/2013 09/11/2013 Inactive meloxicam 7.5 mg tablet RxNorm: 500184 1 Tablet(s) PO QD 05/15/2013 0 09/11/2013 Inactive lisinopril 20 mg tablet RxNorm: 885583 1 Tablet(s) PO QD 05/15/2013 0 09/11/2013 Inactive Adderall 20 mg tablet RxNorm: 709448 2 Tablet(s) PO QD 04/02/2013 No Stop Date Active Adderall 20 mg tablet RxNorm: 684517 2 Tablet(s) PO QD 02/27/2013 No Stop Date Active Adderall 20 mg tablet RxNorm: 715251 2 Tablet(s) PO QD 01/22/2013 No Stop Date Active Adderall 20 mg tablet RxNorm: 634486 2 Tablet(s) PO QD 12/28/2012 No Stop Date Active Adderall 20 mg tablet RxNorm: 102605 2 Tablet(s) PO QD 12/01/2012 No Stop Date Active Adderall 20 mg tablet RxNorm: 679993 2 Tablet(s) PO QD 11/01/2012 No Stop Date Active K-Dur 20 mEq tablet,extended release RxNorm: 905246 1 Tablet(s) PO QD 10/19/2012 11/26/2018 Inactive meloxicam 7.5 mg tablet RxNorm: 269362 1 Tablet(s) PO QD 10/19/2012 0 04/16/2013 Inactive Protonix 40 mg tablet,delayed release RxNorm: 478949 1 Tablet(s ) PO QD 10/19/2012 04/16/2013 Inactive lisinopril 20 mg tablet RxNorm: 127662 1 Tablet(s) PO QD 10/19/2012 0 04/16/2013 Inactive Cipro 500 mg tablet RxNorm: 454687 1 Tablet(s) PO BID 07/05/201211/2011 Inactive Adderall XR 20 mg capsule,extended release RxNorm: 887941 2 Cap teresa(s) PO QAM 06/12/2012 07/26/2012 Inactive Adderall XR 20 mg capsule,extended release RxNorm: 915594 2 Cap teresa(s) PO QAM 05/16/2012 06/11/2012 Inactive Adderall XR 20 mg capsule,extended release RxNorm: 575387 2 Cap teresa(s) PO QAM 04/21/2012 05/15/2012 Inactive Adderall XR 20 mg capsule,extended release RxNorm: 201259 2 Cap teresa(s) PO QAM 02/16/2012 03/16/2012 Inactive Enablex 15 mg 24 hr Tab RxNorm: 139965 1 Tablet(s) PO QPM repla mady Vesicare 02/07/2012 05/28/2012 Inactive Enablex 15 mg 24 hr Tab RxNorm: 738607 1 Tablet(s) PO QPM repla mady Vesicare 02/07/2012 08/04/2012 Inactive Protonix 40 mg Tab RxNorm: 352625 1 Tablet(s) PO QD 02/07/20122011 Inactive Protonix 40 mg Tab RxNorm: 956930 1 Tablet(s) PO QD 02/02/20122011 Inactive Enablex 15 mg 24 hr Tab RxNorm: 561799 1 Tablet(s) PO QPM repla mady Vesicare 02/02/2012 02/06/2012 Inactive Adderall XR 20 mg 24 hr Cap RxNorm: 916984 2 Capsule(s) PO QAM 01/0602/15/2012 Inactive Adderall XR 20 mg 24 hr Cap RxNorm: 557764 2 Capsule(s) PO QAM 12/0601/15/2012 Inactive Adderall XR 20 mg 24 hr Cap RxNorm: 750561 2 Capsule(s) PO QAM 11/0612/16/2011 Inactive Adderall XR 20 mg 24 hr Cap RxNorm: 372814 2 Capsule(s) PO QAM 10/0611/17/2011 Inactive Adderall XR 20 mg 24 hr Cap RxNorm: 009418 2 Capsule(s) PO QAM 09/0910/24/2011 Inactive Prevacid 30 mg Cap RxNorm: 514372 1 Capsule(s) PO QD 07/30/201109/27 Inactive Adderall XR 20 mg 24 hr Cap RxNorm: 798210 2 Capsule(s) PO QAM 07/0908/28/2011 Inactive Adderall XR 20 mg 24 hr Cap RxNorm: 337688 2 Capsule(s) PO QAM 06/0807/21/2011 Inactive ciprofloxacin 0.3 % Eye Drops RxNorm: 178746 2 Drop(s) OPH Q2H 05/0905/31/2011 Inactive Adderall XR 20 mg 24 hr Cap RxNorm: 428034 2 Capsule(s) PO QAM 05/08 No Stop Date Active Wellbutrin XL 150 mg 24 hr Tab RxNorm: 532525 1 Tablet(s) PO QAM 04/14/2011 Inactive Vesicare 10 mg Tab RxNorm: 945656 1 Tablet(s) PO QD 12/24/20102011 Inactive Vesicare 10 mg Tab RxNorm: 726087 1 Tablet(s) PO QD 12/21/20102018 Inactive Adderall XR 30 mg 24 hr Cap RxNorm: 044022 1 Capsule(s) PO QD 11/1712/16/2010 Inactive Vesicare 10 mg Tab RxNorm: 335917 1 Tablet(s) PO QD 09/21/20102010 Inactive Adderall XR 30 mg 24 hr Cap RxNorm: 710744 1 Capsule(s) PO 09/17/19 11 10/16/2010 Inactive Adderall XR 30 mg 24 hr Cap RxNorm: 505227 1 Capsule(s) PO QAM 07/0911/26/2018 Inactive Adderall XR 30 mg 24 hr Cap RxNorm: 230284 1 Capsule(s) PO QAM 07/0908/03/2010 Inactive Adderall XR 20 mg 24 hr Cap RxNorm: 119531 2 Capsule(s) PO QD 01/2602/02/2010 Inactive Adderall XR 20 mg 24 hr Cap RxNorm: 744890 1 Capsule(s) PO QD 01/2605/03/2010 Inactive Forteo 20 mcg/dose (600 mcg/2.4 mL) Sub-Q Pen Injector RxNorm: 1 330179 SQ 12/30/2009 01/25/2011 Inactive hyoscyamine 0.125 mg sublingual tablet RxNorm: 1500115 1 Tablet(s) SL Q4H as needed for excessive secretions No Start Date Active Senokot-S 8.6 mg-50 mg tablet RxNorm: 5120239 2 Tablet(s) PO BID No Start Date Active rabeprazole 20 mg tablet,delayed release RxNorm: 700055 1 Table t(s) PO QD No Start Date Active Micro-K 10 10 mEq capsule,extended release RxNorm: 659366 1 Cap teresa(s) PO QD No Start Date Active docusate sodium 100 mg tablet RxNorm: 0026679 1 Tablet(s) PO Q8H as needed No Start Date Active ondansetron HCl 4 mg tablet RxNorm: 462313 1 Tablet(s) PO Q4H a s needed No Start Date Active Vitamin D3 5,000 unit tablet RxNorm: 501422 1 Tablet(s) PO QD No Star t Date Active bisacodyl 5 mg tablet RxNorm: 705412 1 Tablet(s) PO BID as needed N o Start Date Active aspirin 81 mg tablet RxNorm: 164383 1 Tablet(s) PO QD No Start Date Active Multivitamin And Mineral oral RxNorm: oral No Start Date Active Benadryl 1 % topical cream RxNorm: 0439542 TOP as needed for hiv es No Start Date Active K-Dur 20 mEq tablet,extended release RxNorm: 968261 1 Tablet(s) PO QD No Start Date 08/19/2014 Inactive Colace 100 mg capsule RxNorm: 3649503 1 Capsule(s) PO BID No Start Date 01/19/2017 Inactive ketoconazole 2 % shampoo RxNorm: 905715 1 Application TOP twice a week No Start Date 09/13/2016 Inactive ibuprofen 600 mg tablet RxNorm: 112187 1 Tablet(s) PO Q6H as ne eded No Start Date 06/21/2018 Inactive Zaditor 0.025 % Eye Drops RxNorm: 561821 1 Drop(s) OPH BID No Start Date 05/28/2012 Inactive senna 8.6 mg tablet RxNorm: 438204 2 Tablet(s) PO BID No Start Date 0 02/11/2016 Inactive senna 8.6 mg tablet RxNorm: 256384 1 Tablet(s) PO BID No Start Date 0 02/11/2016 Inactive Amoxil 500 mg capsule RxNorm: 921111 1 Capsule(s) PO BID No Start D ate 05/01/2017 Inactive lisinopril 20 mg tablet RxNorm: 001542 1 Tablet(s) PO QD No Start D ate 10/18/2012 Inactive Prevacid 30 mg Capsule, delayed release RxNorm: 699627 1 Capsul e(s) PO QD No Start Date 02/01/2012 Inactive Senokot-S 8.6 mg-50 mg Tab RxNorm: 9756452 2 Tablet(s) PO QD PRN No Start Date 03/02/2010 Inactive Cymbalta 30 mg capsule,delayed release RxNorm: 150564 1 Capsule (s) PO QD No Start Date 08/16/2017 Inactive ketoconazole 2 % topical cream RxNorm: 700078 1 Applica tion TOP BID to scaly eyebrows No Start Date 05/01/2017 Inactive lorazepam 0.5 mg tablet RxNorm: 976375 1 Tablet(s) PO Q4H as ne eded No Start Date 06/21/2018 Inactive Vitamin C 500 mg tablet RxNorm: 978730 1 Tablet(s) PO QD No Start D ate 01/21/2013 Inactive albuterol sulfate 2.5 mg/3 mL (0.083 %) Neb Solution RxNorm: 151364 Milliliter(s) INH 1 vial in nebulizer every 4 hours as needed No Start Date 01/21/2013 Inactive Adderall XR 20 mg 24 hr Cap RxNorm: 414567 1 Capsule(s) PO QAM No S tart Date 01/25/2011 Inactive Xanax 0.25 mg Tab RxNorm: 065162 1/2 Tablet(s) PO BID PRN No Start Date 03/02/2010 Inactive Tylenol Extra Strength 500 mg Tab RxNorm: 383015 2 Tablet(s) PO PRN No Start Date 08/24/2011 Inactive Adderall 20 mg tablet RxNorm: 172970 2 Tablet(s) PO QD No Start Date 10/31/2012 Inactive bisacodyl 5 mg tablet,delayed release RxNorm: 947709 1 Tablet(s) PO Q12H as needed No Start Date 02/04/2019 Inactive Tessalon Perles 100 mg capsule RxNorm: 439574 1 Capsule (s) PO TID as needed for cough No Start Date 09/15/2017 Inactive Vitamin D3 1,000 unit tablet RxNorm: 119075 3 Tablet(s) PO QD No St art Date 02/22/2017 Inactive meloxicam 7.5 mg tablet RxNorm: 160521 1 Tablet(s) PO QD No Start D ate 10/18/2012 Inactive Bactroban 2 % topical ointment RxNorm: 717167 1 Application TOP QD No Start Date 12/11/2017 Inactive Toviaz 8 mg 24 hr Tab RxNorm: 863831 1 Tablet(s) PO QD No Start Date 09/21/2010 Inactive Prevacid 15 mg capsule,delayed release RxNorm: 382956 Capsule(s ) PO QD No Start Date 02/28/2018 Inactive K-Dur 20 mEq tablet,extended release RxNorm: 2708861 1 Tablet(s) PO QD No Start Date 10/18/2012 Inactive Adderall XR 20 mg 24 hr Cap RxNorm: 702611 2 Capsule(s) PO QAM No S tart Date 05/24/2011 Inactive Calcium with Vitamin D 600 mg-400 unit Tab RxNorm: 663415 1 Tab let(s) PO QD No Start Date 08/24/2011 Inactive Miralax 17 gram oral powder packet RxNorm: 911786 17 Gram(s) PO BID as needed No Start Date 11/26/2018 Inactive Zestril 10 mg Tab RxNorm: 208813 1 Tablet(s) PO QD No Start Date 10/06 Inactive baclofen 10 mg tablet RxNorm: 682799 1 Tablet(s) PO QHS No Start Da te 09/11/2015 Inactive Tums 500 Oral RxNorm: Oral No Start Date 01/13/2015 Inactive Senokot-S 8.6 mg-50 mg tablet RxNorm: 6751919 1 Tablet(s) PO BID No Start Date 11/26/2018 Inactive Prozac 10 mg Tab RxNorm: 955903 1 Capsule(s) PO QD No Start Date 10/06 Inactive Elavil 10 mg tablet RxNorm: 551414 1 Tablet(s) PO QHS No Start Date 0 12/12/2018 Inactive Dulcolax Stool Softener (docusate) 100 mg capsule RxNorm: 12 99147 1 Capsule(s) PO Q8H as needed No Start Date 01/19/2017 Inactive Adderall XR 30 mg 24 hr Cap RxNorm: 652083 1 Capsule(s) PO QAM No S tart Date 04/14/2011 Inactive Milk of Alexa-Genieara 15.25 % oral suspension RxNorm: oral No Start Date 11/26/2018 Inactive Tylenol 325 mg tablet RxNorm: 524762 2 Tablet(s) PO Q4H as needed N o Start Date 11/26/2018 Inactive Prilosec 20 mg capsule,delayed release RxNorm: 800550 1 Capsule (s) PO BID No Start Date 09/08/2014 Inactive Tylenol 8 Hour 650 mg tablet,extended release RxNorm: 500632 0 1 Tablet(s) PO Q4H as needed No Start Date 11/26/2018 Inactive Vitamin D3 2,000 unit tablet RxNorm: 962123 1 Tablet(s) PO QD No St art Date 02/22/2017 Inactive nystatin 100,000 unit/gram topical powder RxNorm: 445536 1 Appl ication TOP BID No Start Date 08/15/2017 Inactive morphine 20 mg/5 mL (4 mg/mL) oral solution RxNorm: 697391 .25 Milliliter(s) PO Q4H as needed No Start Date 09/24/2018 Inactive Forteo 20 mcg/dose (750 mcg/3 mL) Sub-Q Pen Injector RxNorm: 143 5115 SQ QD No Start Date 01/21/2010 Inactive ciprofloxacin 0.3 % Eye Drops RxNorm: 238497 2 Drop(s) OPH TID to affected eye No Start Date 08/23/2012 Inactive bisacodyl 5 mg tablet RxNorm: 205594 1 Tablet(s) PO BID No Start Da te 02/11/2016 Inactive Avosil 2 %-0.2 % topical ointment RxNorm: 1 Appl ication TOP Q8H as needed to burn sites No Start Date 11/26/2018 Inactive Milk of Magnesia 800 mg/5 mL oral suspension RxNorm: 966967 Milliliter(s) PO as needed No Start Date 06/20/2018 Inactive Atarax 25 mg tablet RxNorm: 884667 1 Tablet(s) PO Q4H prn itchi ng/hives No Start Date 08/24/2011 Inactive Adderall XR 30 mg 24 hr Cap RxNorm: 117532 1 Capsule(s) PO QAM No S tart Date 07/26/2010 Inactive Prevacid 30 mg Cap RxNorm: 337883 1 Capsule(s) PO QD No Start Date Inactive Vitamin C 500 mg tablet RxNorm: 500619 1 Tablet(s) PO BID No Start Date 07/11/2016 Inactive Vistaril 25 mg capsule RxNorm: 603063 1 Capsule(s) PO Q4H PRN No St art Date 03/02/2010 Inactive tramadol 50 mg tablet RxNorm: 045422 1 Tablet(s) PO TID as need ed for pain No Start Date 01/21/2013 Inactive Multivitamin & Mineral Formula tablet RxNorm: 1 Tablet(s) PO Q D No Start Date 06/22/2018 Inactive hydrocodone 5 mg-acetaminophen 325 mg tablet RxNorm: 934842 1 Tablet(s) PO Q4H as needed for pain No Start Date 06/24/2019 Inactive Multivitamin & Mineral Formula Oral RxNorm: Oral No Start Da te 03/02/2010 Inactive Miralax 17 gram oral powder packet RxNorm: 630779 17 Gr am(s) PO QPM for constipation No Start Date 02/25/2015 Inactive Percocet 5 mg-325 mg tablet RxNorm: 2505561 1-2 Tablet(s) PO Q4H as needed No Start Date 09/24/2018 Inactive triamcinolone acetonide 0.1 % topical cream RxNorm: 3084225 1 Application TOP TID to affected area as needed No Start Date 12/12/2013 Inactive rabeprazole 20 mg tablet,delayed release RxNorm: 286377 1 Table t(s) PO QD No Start Date 09/24/2018 Inactive Protonix 40 mg tablet,delayed release RxNorm: 968119 1 Tablet(s ) PO QD No Start Date 10/18/2012 Inactive Mobic 7.5 mg Tab RxNorm: 946832 1 Tablet(s) PO BID No Start Date 10/06 Inactive Sinemet CR 50 mg-200 mg Tab RxNorm: 204665 1 Tablet(s) PO QD No Sta rt Date 03/02/2010 Inactive Adderall XR 20 mg 24 hr Cap RxNorm: 433089 2 Capsule(s) PO QD No St art Date 02/02/2010 Inactive Medication Administered No Medication Administered data Immunizations No Immunization data Results Observation Observation Code Item Item Code Result Date S ervice Location COMPLETE BLOOD COUNT [id number] WBC 7.3 10e9/L 05/29/20 12 Unknown COMPLETE BLOOD COUNT [id number] RBC 5.20 10e12/L 2011 Unknown COMPLETE BLOOD COUNT [id number] HGB 15.3 g/dL 2 Unknown COMPLETE BLOOD COUNT [id number] HCT DET 45.9 % 2 Unknown COMPLETE BLOOD COUNT [id number] MCV 88.3 fL 2 Unknown COMPLETE BLOOD COUNT [id number] MCH 29.4 pg 2 Unknown COMPLETE BLOOD COUNT [id number] MCHC 33.3 g/dL 2 Unknown COMPLETE BLOOD COUNT [id number] PLT 341 10e9/L 05/29/20 12 Unknown COMPLETE BLOOD COUNT [id number] MPV 10.1 fL 2 Unknown COMPLETE BLOOD COUNT [id number] ASHLEY % 63.2 % 2 Unknown COMPLETE BLOOD COUNT [id number] LY % 27.4 % 2 Unknown COMPLETE BLOOD COUNT 0600001 MON % 7.6 % 2 Unknown COMPLETE BLOOD COUNT [id number] EOS % 1.5 % 2 Unknown COMPLETE BLOOD COUNT [id number] BASO % 0.3 % 2 Unknown COMPLETE BLOOD COUNT [id number] RDW 13.6 % 2 Unknown COMPLETE BLOOD COUNT [id number] ABS ASHLEY 4.61 10e9/L 012 Unknown COMPLETE BLOOD COUNT [id number] ABS LYMPH 2.00 10e9/L 012 Unknown COMPLETE BLOOD COUNT [id number] ABS MONO 0.55 10e9/L 012 Unknown COMPLETE BLOOD COUNT [id number] ABS EOS 0.11 10e9/L 012 Unknown COMPLETE BLOOD COUNT [id number] ABS BASO 0.02 10e9/L 012 Unknown COMPLETE BLOOD COUNT [id number] RDW-SD 43.5 fL 2 Unknown THYROID STIMULATING HORMONE 09419 TSH 1.487 uIU/ML 05/29/2012 Unknown GFR CALC [id number] GFR AA >60 ML/MIN 05/29/2012 Unknown GFR CALC [id number] GFR NON-AA >60 ML/MIN 05/29/2012 Unknown FREE T4 73874 FREE T4 1.20 NG/DL 05/29/2012 Unknown COMPREHENSIVE METABOLIC 97091 AST 17 U/L 2011 Unknown COMPREHENSIVE METABOLIC 23553 ALT 16 IU/L 2011 Unknown COMPREHENSIVE METABOLIC 95190 BUN 9 MG/DL 2011 Unknown COMPREHENSIVE METABOLIC 94399 ALBUMIN 4.1 GM/DL 2011 Unknown COMPREHENSIVE METABOLIC 71794 CHLORIDE 106 MMOL/L 05/29 Unknown COMPREHENSIVE METABOLIC 53209 BILI TOT 0.4 MG/DL 2011 Unknown COMPREHENSIVE METABOLIC 86112 ALK PHOS 87 U/L 2011 Unknown COMPREHENSIVE METABOLIC 76487 SODIUM 142 MMOL/L 05/29 Unknown COMPREHENSIVE METABOLIC 44670 CREATININE 0.79 MG/DL 05/09 Unknown COMPREHENSIVE METABOLIC 58097 CALCIUM 9.2 MG/DL 2011 Unknown COMPREHENSIVE METABOLIC 22514 POTASSIUM 3.6 MMOL/L 05/29 Unknown COMPREHENSIVE METABOLIC 72418 PROT TOT 6.5 GM/DL 2011 Unknown COMPREHENSIVE METABOLIC 49601 Glucose 78 MG/DL 2011 Unknown COMPREHENSIVE METABOLIC 85398 BICARB 27 MMOL/L 2011 Unknown COMPREHENSIVE METABOLIC 87765 ANION GAP 9 MEQ/L 2011 Unknown Procedures Procedure Codes Date PPPS, subseq visit CPT-4: G0439 08/03/2018 PPPS, subseq visit CPT-4: G0439 07/12/2016 CUR TOBACCO NON-USER CPT-4: G8457 04/15/2015 URINALYSIS NONAUTO W/O SCOPE CPT-4: 03004 07/05/2012 URINE CULTURE/ COLONY COUNT CPT-4: 17386 07/05/2012 PRESCRIP TRANSMIT VIA ERX SY CPT-4: G8553 07/05/2012 ROUTINE VENIPUNCTURE CPT-4: 64403 05/29/2012 ASSAY OF FREE THYROXINE CPT-4: 77944 05/29/2012 ASSAY THYROID STIM HORMONE CPT-4: 73036 05/29/2012 COMPREHEN METABOLIC PANEL CPT-4: 26867 05/29/2012 COMPLETE CBC W/AUTO DIFF WBC CPT-4: 94654 05/29/2012 PRESCRIP TRANSMIT VIA ERX SY CPT-4: G8553 05/29/2012 PRESCRIP TRANSMIT VIA ERX SY CPT-4: G8553 02/02/2012 PRESCRIP TRANSMIT VIA ERX SY CPT-4: G8553 05/27/2011 PRESCRIP TRANSMIT VIA ERX SY CPT-4: G8553 02/22/2011 SERVICE REQUIRED FOR PMD CPT-4: G0372 06/15/2010 ROUTINE VENIPUNCTURE CPT-4: 78458 10/20/2009 Vital Signs Date Vital 12/03/2019 Blood Pressure 1: 106/58 Code: 8480-6 [...] 1: 114/66 Code: 8480-6 BMI: 25.8 Code: 09209-3 Heart Rate 1: 72 bpm Height: 5'2" Respiratory Rate: 20 bpm SpO2: 94% Tempera ture: 36.7 (C) / 98.0 (F) Weight: 141 lbs 2 oz 05/11/2016 Blood Pressure 1: 11668 Code: 8480-6 Heart Rate 1: 80 bpm Height: Respiratory Rate: 20 bpm Temperature: 36.8 (C) / 98.3 (F) Weight: 12/23/2015 Blood Pressure 1: 11678 Code: 8480-6 Heart Rate 1: 76 bpm Height: Respiratory Rate: 20 bpm Temperature: 36.2 (C) / 97.2 (F) Weight: 09/23/2015 Blood Pressure 1: 12478 Code: 8480-6 Heart Rate 1: 76 bpm Height: Respiratory Rate: 20 bpm Temperature: 36.1 (C) / 96.9 (F) Weight: 04/15/2015 Blood Pressure 1: 124/90 Code: 8480-6 Heart Rate 1: 10 8 bpm Height: Respiratory Rate: 20 bpm Temperature: 36.8 (C) / 98.2 (F) Weight: 01/14/2015 Blood Pressure 1: 116 Code: 8480-6 Heart Rate 1: 92 bpm Height: Respiratory Rate: 20 bpm Temperature: 36.3 (C) / 97.4 (F) Weight: 10/29/2014 Blood Pressure 1: 114 Code: 8480-6 Heart Rate 1: 84 bpm Height: Respiratory Rate: 20 bpm Temperature: 36.4 (C) / 97.5 (F) Weight: 08/20/2014 Blood Pressure 1: 104/70 Code: 8480-6 Heart Rate 1: 10 0 bpm Height: Respiratory Rate: 20 bpm Temperature: 36.9 (C) / 98.4 (F) Weight: 06/04/2014 Blood Pressure 1: 11468 Code: 8480-6 Heart Rate 1: 92 bpm Height: Respiratory Rate: 20 bpm Temperature: 36.7 (C) / 98.1 (F) Weight: 05/06/2014 Blood Pressure 1: 118/90 Code: 8480-6 Heart Rate 1: 108 bpm Respiratory Rate: 20 bpm Temperature: 36.6 (C) / 97.9 (F) 08/07/2013 Blood Pressure 1: 11678 Code: 8480-6 Heart Rate 1: 80 bpm [...] 1: 122/80 Code: 8480-6 BMI: 24.9 Code: 10848-6 Heart Rate 1: 100 bpm Height: 5'2" Respiratory Rate: 20 bpm Temperature: 37 .1 (C) / 98.8 (F) Weight: 136 lbs 11/03/2011 Blood Pressure 1: 104/60 Code: 8480-6 BMI: 24.1 Code: 63521-9 Heart Rate 1: 88 bpm Height: 5'2" Respiratory Rate: 20 bpm Temperature: 36 .6 (C) / 97.8 (F) Weight: 132 lbs 08/25/2011 Blood Pressure 1: 128/86 Code: 8480-6 BMI: 24.9 Code: 01694-6 Heart Rate 1: 76 bpm Height: 5'2" Respiratory Rate: 20 bpm Temperature: 36 .2 (C) / 97.2 (F) Weight: 136 lbs 05/27/2011 Blood Pressure 1: 130/90 Code: 8480-6 BMI: 25.1 Code: 00770-8 Heart Rate 1: 68 bpm Height: 5'2" [...] 1: 114/70 Code: 8480-6 BMI: 22.9 Code: 16556-7 Heart Rate 1: 92 bpm Height: 5'2" Temperature: 36.4 (C) / 97.5 (F) Weight: 125 lbs Functional Status No Functional Status data Reason For Visit Reason For Visit Effective Dates Notes swelling 12/10/2019 follow up 12/03/2019 2mo fwup [...] N/V Encounters Encounter Performer Location Codes Date () OFFICE/OUTPATIENT VISIT EST Diagnosis: Left arm cellulitis[ICD10: L03.114] Diagnosis: Skin tear of left upper extremity[ICD10: S41.112A] Cherri MACHUCA [employer] CPT-4: 12597 12/10/2019 ([id number]) OFFICE/OUTPATIENT VISIT EST Diagnosis: Constipation[ICD10: K59.00] Diagnosis: Sacral decubitus ulcer[ICD10: L89.159] Cherri OLSON [employer] CPT-4: 17361 12/03/2019 ([id number]) OFFICE/OUTPATIENT VISIT EST 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] Diagnosis: Muscle weakness (generalized)[ICD10: M62.81] Cherri MACHUCA [employer] CPT-4: 54302 10/01/2019 ([id number]) OFFICE/OUTPATIENT VISIT EST Diagnosis: Personal history of malignant neoplasm of brain[ICD10: Z85.841] Diagnosis: Muscle weakness (generalized)[ICD10: M62.81] Diagnosis: Hemiplegia, unspecified affecting left dominant side[ICD10: G81.92] Diagnosis: Contracture, 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] Cherri Ezio HOLGUIN DO [facility] CPT-4: 85550 06/25/2019 ([id number]) OFFICE/OUTPATIENT VISIT EST Diagnosis: Attention and concentration deficit[ICD10: R41.840] Diagnosis: Abnormal weight loss[ICD10: R63.4] Cherri HOLGUIN DO [facility] CPT-4: 15931 02/05/2019 ([id number]) OFFICE/OUTPATIENT VISIT EST Diagnosis: Attention and concentration deficit[ICD10: R41.840] Cherri HOLGUIN DO [facility] CPT-4: 62564 12/13/2018 ([id number]) OFFICE/OUTPATIENT VISIT EST Diagnosis: Laceration without foreign body of left upper arm, sequela[ICD10: S41.112S] Diagnosis: Other fatigue[ICD10: R53.83] Cherri HOLGUIN DO [facility] CPT-4: 87357 11/27/2018 ([id number]) OFFICE/OUTPATIENT VISIT EST Diagnosis: Gastro-esophageal reflux disease without esophagitis[ICD10: K21.9] Diagnosis: Contracture, 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] Diagnosis: Slow transit constipation[ICD10: K59.01] Cherri HOLGUIN DO [facility] CPT-4: 28590 09/25/2018 ([id number]) OFFICE/OUTPATIENT VISIT EST Diagnosis: Gastro-esophageal reflux disease without esophagitis[ICD10: K21.9] Diagnosis: Muscle weakness (generalized)[ICD10: M62.81] Maxine HOLGUIN DO [facility] CPT-4: 22750 06/22/2018 ([id number]) OFFICE/OUTPATIENT VISIT EST Diagnosis: Gastro-esophageal reflux disease without esophagitis[ICD10: K21.9] Cherri HOLGUIN DO [facility] CPT-4: 34148 04/06/2018 ([id number]) OFFICE/OUTPATIENT VISIT EST Diagnosis: Gastro-esophageal reflux disease without esophagitis[ICD10: K21.9] Maxine HOLGUIN DO [facility] CPT-4: 09748 03/06/2018 ([id number]) OFFICE/OUTPATIENT VISIT EST Diagnosis: 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] Diagnosis: Gastro-esophageal reflux disease without esophagitis[ICD10: K21.9] Diagnosis: Slow transit constipation[ICD10: K59.01] Diagnosis: Primary insomnia[ICD10: F51.01] Cherri HOLGUIN [employer] [facility] CPT-4: 93098 02/15/2018 ([id number]) OFFICE/OUTPATIENT VISIT EST Diagnosis: Muscle weakness (generalized)[ICD10: M62.81] Diagnosis: Gastro-esophageal reflux disease without esophagitis[ICD10: K21.9] Cherri HOLGUIN [employer] [facility] CPT-4: 49467 12/12/2017 ([id number]) OFFICE/OUTPATIENT VISIT EST Diagnosis: Nondisplaced fracture of medial malleolus of left tibia, subsequent encounter for closed fracture with delayed healing[ICD10: S82.55XG] Cherri HOLGUIN [employer] [facility] CPT-4: 62621 10/10/2017 OFFICE/OUTPATIENT VISIT EST Diagnosis: Acute upper respiratory infection, unspecified[ICD10: J06.9] Maxine HOLGUIN [employer] [facility] CPT-4: 63595 09/19/2017 ([id number]) OFFICE/OUTPATIENT VISIT EST Diagnosis: Muscle weakness (generalized)[ICD10: M62.81] Diagnosis: Other specified disorders of the skin and subcutaneous tissue[ICD10: L98.8] Cherri HOLGUIN [employer] [facility] CPT-4: 37080 08/04/2017 ([id number]) OFFICE/OUTPATIENT VISIT EST Diagnosis: Unspecified open wound of abdominal wall, left upper quadrant with penetration into peritoneal cavity, sequela[ICD10: S31.601S] Diagnosis: Muscle weakness (generalized)[ICD10: M62.81] Diagnosis: Personal history of malignant neoplasm of brain[ICD10: Z85.841] Cherri HOLGUIN [employer] [facility] CPT-4: 07026 07/12/2017 ([id number]) OFFICE/OUTPATIENT VISIT EST Diagnosis: Non-pressure chronic ulcer of skin of other sites with unspecified severity[ICD10: L98.499] Diagnosis: Tinea cruris[ICD10: B35.6] Cherri RUSHING DO [facility] CPT-4: 85193 05/30/2017 ([id number]) OFFICE/OUTPATIENT VISIT EST Diagnosis: Cellulitis of abdominal wall[ICD10: L03.311] Diagnosis: Cellulitis of chest wall[ICD10: L03.313] Cherri HOLGUIN DO [facility] CPT-4: 16558 05/02/2017 ([id number]) OFFICE/OUTPATIENT VISIT EST Diagnosis: Cellulitis of chest wall[ICD10: L03.313] Diagnosis: Muscle weakness (generalized)[ICD10: M62.81] Cherri HOLGUIN DO [facility] CPT-4: 41159 02/28/2017 ([id number]) OFFICE/OUTPATIENT VISIT EST Diagnosis: Cellulitis of abdominal wall[ICD10: L03.311] Cherri HOLGUIN [facility] CPT-4: 17002 12/06/2016 OFFICE/OUTPATIENT VISIT EST Diagnosis: Cutaneous abscess of abdominal wall[ICD10: L02.211] Diagnosis: Cellulitis of abdominal wall[ICD10: L03.311] Cherri HOLGUIN DO [facility] CPT-4: 68326 12/02/2016 ([id number]) OFFICE/OUTPATIENT VISIT EST Diagnosis: Cellulitis of abdominal wall[ICD10: L03.311] Diagnosis: Cutaneous abscess of abdominal wall[ICD10: L02.211] Cherri HOLGUIN DO [facility] CPT-4: 34723 12/01/2016 ([id number]) OFFICE/OUTPATIENT VISIT EST Diagnosis: Cutaneous abscess of abdominal wall[ICD10: L02.211] Diagnosis: Cellulitis of abdominal wall[ICD10: L03.311] Cherri HOLGUIN DO [facility] CPT-4: 54786 11/30/2016 ([id number]) OFFICE/OUTPATIENT VISIT EST Diagnosis: Muscle weakness (generalized)[ICD10: M62.81] Diagnosis: Slow transit constipation[ICD10: K59.01] Diagnosis: 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, 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] Cherri HOLGUIN DO [facility] CPT-4: 66682 10/26/2016 ([id number]) OFFICE/OUTPATIENT VISIT EST Diagnosis: Other seborrheic dermatitis[ICD10: L21.8] Cherri HOLGUIN DO [facility] CPT-4: 65714 09/13/2016 ([id number]) OFFICE/OUTPATIENT VISIT EST Diagnosis: Contracture, 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] Diagnosis: Nicotine dependence, cigarettes, uncomplicated[ICD10: F17.210] Diagnosis: Hemiplegia, unspecified affecting unspecified side[ICD10: G81.90] Diagnosis: Muscle weakness (generalized)[ICD10: M62.81] Cherri HOLGUIN DO [facility] CPT-4: 84082 05/11/2016 ([id number]) OFFICE/OUTPATIENT VISIT EST Diagnosis: Muscle weakness (generalized)[ICD10: M62.81] Diagnosis: Abnormal weight loss[ICD10: R63.4] Cherri HOLGUIN [employer] [facility] CPT-4: 66658 12/23/2015 ([id number]) OFFICE/OUTPATIENT VISIT EST Diagnosis: Torticollis[ICD10: M43.6] Diagnosis: Cervicalgia[ICD10: M54.2] Diagnosis: Basal cell carcinoma of skin, unspecified[ICD10: C44.91] Cherri HOLGUIN [facility] CPT-4: 12646 09/23/2015 ([id number]) OFFICE/OUTPATIENT VISIT EST Diagnosis: Constipation[ICD9: 564.00] Diagnosis: MUSCLE WEAKNESS-GENERAL[ICD9: 728.87] Cherri SANCHEZDELFINA RYLIE Martha HOLGUIN [employer] [facility] CPT-4: 96280 04/15/2015 ([id number]) OFFICE/OUTPATIENT VISIT EST Diagnosis: MALAISE AND FATIGUE[ICD9: 780.79] Diagnosis: 3RD DEGREE BURN[ICD9: 949.3] Cherricesar JOHNSTONLINE Martha HOLGUIN [employer] [facility] CPT-4: 14027 01/14/2015 ([id number]) OFFICE/OUTPATIENT VISIT EST Diagnosis: Constipation[ICD9: 564.00] Diagnosis: MUSCLE WEAKNESS-GENERAL[ICD9: 728.87] Diagnosis: 3RD DEGREE BURN[ICD9: 949.3] Cherri HOLGUIN DO [facility] CPT-4: 14868 10/29/2014 ([id number]) OFFICE/OUTPATIENT VISIT EST Diagnosis: Weakness generalized[ICD9: 780.79] Diagnosis: 3RD DEGREE BURN[ICD9: 949.3] Cherri HOLGUIN DO [facility] CPT-4: 21442 08/20/2014 ([id number]) OFFICE/OUTPATIENT VISIT EST Diagnosis: 3RD DEGREE BURN[ICD9: 949.3] Diagnosis: DYSPHAGIA NEC[ICD9: 787.29] Cherri MICHAELS [facility] CPT-4: 06086 06/04/2014 ([id number]) OFFICE/OUTPATIENT VISIT EST Diagnosis: 3RD DEGREE BURN[ICD9: 949.3] Diagnosis: Complication of skin graft[ICD9: 996.52] Diagnosis: TOBACCO USE DISORDER[ICD9: 305.1] [facility] 59563 05/06/2014 ([id number]) OFFICE/OUTPATIENT VISIT EST Diagnosis: CELLULITIS[ICD9: 682.9] Cherri BRUNSON [facility] CPT-4: 49481 08/07/2013 ([id number]) OFFICE/OUTPATIENT VISIT EST Diagnosis: MUSCLE WEAKNESS-GENERAL[ICD9: 728.87] Diagnosis: MALAISE AND FATIGUE[ICD9: 780.79] Diagnosis: ABNORMALITY OF GAIT[ICD9: 781.2] Cherri HOLGUIN [facility] CPT-4: 30947 05/23/2013 ([id number]) OFFICE/OUTPATIENT VISIT EST Diagnosis: MALAISE AND FATIGUE[ICD9: 780.79] Diagnosis: MUSCLE WEAKNESS-GENERAL[ICD9: 728.87] Diagnosis: HEMIPLEGIANOS SIDE NOS[ICD9: 342.90] Diagnosis: 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] Cherri HOLGUIN [facility] CPT-4: 36087 04/25/2013 ([id number]) OFFICE/OUTPATIENT VISIT EST Diagnosis: MUSCLE WEAKNESS-GENERAL[ICD9: 728.87] Diagnosis: ABNORMALITY OF GAIT[ICD9: 781.2] Diagnosis: MALAISE AND FATIGUE[ICD9: 780.79] [facility]: 69452 01/22/2013 OFFICE/OUTPATIENT VISIT EST Diagnosis: MALAISE AND FATIGUE[ICD9: 780.79] Diagnosis: MUSCLE WEAKNESS-GENERAL[ICD9: 728.87] Diagnosis: HEMIPLEGIANOS SIDE NOS[ICD9: 342.90] Diagnosis: ABNORMALITY OF GAIT[ICD9: 781.2] [facility]: 60256 10/18/2012 OFFICE/OUTPATIENT VISIT EST Diagnosis: ABNORMALITY OF GAIT[ICD9: 781.2] Diagnosis: MALAISE AND FATIGUE[ICD9: 780.79] Diagnosis: MUSCLE WEAKNESS-GENERAL[ICD9: 728.87] [facility]PT[facility]: 39424 09/25/2012 OFFICE/OUTPATIENT VISIT EST Diagnosis: CERVICALGIA[ICD9: 723.1] Diagnosis: ABNORMALITY OF GAIT[ICD9: 781.2] Diagnosis: MUSCLE WEAKNESS-GENERAL[ICD9: 728.87] [facility]: 86464 08/24/2012 ([id number]) OFFICE/OUTPATIENT VISIT EST Diagnosis: URINARY TRACT INFECTION[ICD9: 599.0] Diagnosis: Altered mental state[ICD9: 780.97] Diagnosis: MUSCLE WEAKNESS-GENERAL[ICD9: 728.87] Diagnosis: HEMIPLEGIANOS SIDE NOS[ICD9: 342.90] Diagnosis: Cervicalgia[ICD9: 723.1] Cherri aPppasramuxuan CARIAS [facility] CPT-4: 81030 07/27/2012 OFFICE/OUTPATIENT VISIT EST Diagnosis: URINARY TRACT INFECTION[ICD9: 599.0] Diagnosis: Weakness generalized[ICD9: 780.79] Diagnosis: FEBRILE ILLNESS[ICD9: 780.60] Diagnosis: Vision disturbance[ICD9: 368.9] Tasneem HOLGUIN DO [facility] CPT-4: 77933 07/05/2012 OFFICE/OUTPATIENT VISIT EST Diagnosis: CONJUNCTIVITIS NOS[ICD9: 372.30] Diagnosis: MUSCLE WEAKNESS-GENERAL[ICD9: 728.87] Diagnosis: HEMIPLEGIANOS SIDE NOS[ICD9: 342.90] Diagnosis: ABNORMALITY OF GAIT[ICD9: 781.2] Cherri HOLGUIN [employer] [facility] CPT-4: 51808 05/29/2012 ([id number]) OFFICE/OUTPATIENT VISIT EST Diagnosis: MUSCLE WEAKNESS-GENERAL[ICD9: 728.87] Diagnosis: HEMIPLEGIANOS SIDE NOS[ICD9: 342.90] Diagnosis: ABNORMALITY OF GAIT[ICD9: 781.2] Diagnosis: DYSPEPSIA[ICD9: 536.8] Diagnosis: GERD[ICD9: 530.81] Cherri HOLGUIN [employer] [facility] CPT-4: 28028 02/02/2012 ([id number]) OFFICE/OUTPATIENT VISIT EST Diagnosis: MUSCLE WEAKNESS-GENERAL[ICD9: 728.87] Diagnosis: ABNORMALITY OF GAIT[ICD9: 781.2] Diagnosis: GERD[ICD9: 530.81] Cherri HOLGUIN [employer] [facility] CPT-4: 80781 11/03/2011 OFFICE/OUTPATIENT VISIT EST Diagnosis: MUSCLE WEAKNESS-GENERAL[ICD9: 728.87] Diagnosis: ABNORMALITY OF GAIT[ICD9: 781.2] Diagnosis: VOMITING ALONE[ICD9: 787.03] Diagnosis: GERD[ICD9: 530.81] Cherri HOLGUIN [employer] [facility] CPT-4: 01523 08/25/2011 OFFICE/OUTPATIENT VISIT EST Diagnosis: CONJUNCTIVITIS NOS[ICD9: 372.30] Cherri HOGLUIN [employer] [facility] CPT-4: 81768 05/27/2011 OFFICE/OUTPATIENT VISIT EST Diagnosis: MUSCLE WEAKNESS-GENERAL[ICD9: 728.87] Diagnosis: ABNORMALITY OF GAIT[ICD9: 781.2] Cherri HOLGUIN [employer] [facility] CPT-4: 02229 04/15/2011 OFFICE/OUTPATIENT VISIT EST Diagnosis: MALAISE AND FATIGUE[ICD9: 780.79] Diagnosis: MUSCLE WEAKNESS-GENERAL[ICD9: 728.87] Diagnosis: DEPRESSIVE DISORDER NEC[ICD9: 311] Diagnosis: ABNORMALITY OF GAIT[ICD9: 781.2] Cherri Mianrl CHERRI Thomas ORENDER DO [facility] CPT-4: 49390 03/22/2011 OFFICE/OUTPATIENT VISIT EST Cherri Thomas ORE NDER DO [facility] CPT- 4: 59426 02/22/2011 ([id number]) OFFICE/OUTPATIENT VISIT EST Cherri Oreramuxuan MELO SBelkis ORENDER DO [facility] CPT-4: 30310 01/26/2011 ([id number]) OFFICE/OUTPATIENT VISIT, EST Cherricrystal DENNEY SBelkis ORENDER DO [employer] CPT-4: 95902 06/15/2010 ([id number]) OFFICE/OUTPATIENT VISIT, EST Cherri Mianrl DANIEL DENNEY S. ORENDER DO [facility] CPT-4: 86469 05/04/2010 ([id number]) OFFICE/OUTPATIENT VISIT, EST Cherri DENNEY SBelkis ORENDER DO [employer] CPT-4: 47495 03/03/2010 ([id number]) OFFICE/OUTPATIENT VISIT, EST Cherri DENNEY S. ORENDER DO [employer] CPT-4: 00530 10/20/2009 Plan of Care Planned Activity Notes Codes Status Date Visit Diagnosis Plan: Left arm cellulitis Discussion: Doxy.ms video visit done with nurse at [place] Start Keflex Continue with clear tegaderm dressing and brian wrap and ice Notify if any worsening ICD-9 : 682.3 ICD-10 : L03.114 12/10/2019 Appointment[facility] [phone] [facility] [facility]/10/2019 Visit Diagnosis Plan: Constipation Discussion: Doxy.me video with [place] nurse done Changing to bisacodyl suppository ICD-9 : 564.00 ICD-10 : K59.00 12/03/2019 Visit Diagnosis Plan: Sacral decubitus ulcer Discussio n: Wound Care seeing this week Follow Up: 2 months ICD-9 : 707.03 ICD-10 : L89.159 12/03/2019 Appointment: Cherri Holguintel: [address] [place], [place] [phone] [place] [employer] 12/03/2019 Visit Diagnosis Plan: 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 FOLLOW UP 06/25/2019 Visit Diagnosis Plan: Attention and concentration defi cit Discussion: Discussed that patient has had weight loss with all stimulants that has tried in past and is currently a poor eater and having ongoing issues with proper amount of food consumption as well as ongoing weight loss ICD-9 : 799.51 ICD-10 : R41.840 02/05/2019 Visit Diagnosis Plan: Abnormal weight loss Discussion: Patient agrees to try protein shake daily and facility will send me weekly weight checks the next month Will also do ST for swallow eval ICD-9 : 783.21 ICD-10 : R63.4 02/05/2019 Appointment: Cherri Holguintel: [address] [place], [place] [phone] [place] Confirmed with Nara Hankins 02/02 @ 11:07 am FOL LOW UP 02/05/2019 Appointment: Cherri Holguintel: [address] [place], [place] [phone] [place] NO SHOW 01/24/2019 Visit Diagnosis Plan: Attention and concentration defi cit Discussion: Trial of strattera 10mg daily for 1 week then 25mg daily Recheck 6 weeks Stimulants have caused weight loss in past as patient is also poor, picky eater so with the stimulants her appetite worsens even more ICD-9 : 799.51 ICD-10 : R41.840 12/13/2018 Appointment: Cherri Holguintel: [address] [place], [place] [phone] [place] confirmed with Morena FOLLOW UP 12/13/2018 [...] 780.79 ICD-10 : R53.83 11/27/2018 Appointment: Cherri Holguin WPtel: [address] [place], [place] [phone] [place] confirmed with Karlee FOLLOW UP 11/27/2018 [...] 564.01 ICD-10 : K59.01 09/25/2018 Appointment: Cherri Holguintel: [address] [place], [place] [phone] [place] FOLLOW UP 09/25/2018 Visit Diagnosis Plan: Disorder of the skin and subcuta neous tissue, unspecified Discussion: referral to be sent to dr. hsieh for change in lesion on scalp. ICD-9 : 709.9 ICD-10 : L98.9 08/03/2018 Visit Diagnosis Plan: Encounter for othe r screening for malignant neoplasm of breast Discussion: mammogram order written to thierry stacy. ICD-9 : V76.10 ICD-10 : Z12.39 08/03/2018 Visit Diagnosis Plan: Encounter for gene ral adult medical examination with abnormal findings Discussion: see other plans. follow up i n 3 months. ICD-9 : V70.0 ICD-10 : Z00.01 08/03/2018 Visit Diagnosis Plan: Mood disorder due to known physiological condition with depressive features Discussion: stable on current dose of cy mbalta. continue with current medications. ICD-9 : 311 ICD-10 : F06.31 08/03/2018 Visit Diagnosis Plan: Encounter for screening for maximino gnant neoplasm of colon Discussion: will obtain records for colonoscopy. if needing updated scope, will refer to surgeon. ICD-9 : V76.51 ICD-10 : Z12.11 08/03/2018 Appointment: Maxine Glasgow [address] [facility] Annual Well Visit 08/03/2018 Visit Diagnosis Plan: [...] : K21.9 06/22/2018 Appointment: [facility] [facility] 06/22/2018 Visit Diagnosis Plan: Gastro-esophageal reflux disease without esophagitis Discussion: Continue aciphex at 20m po daily Recheck 2mos ICD-9 : 530.81 ICD-10 : K21.9 04/06/2018 Appointment: Cherri Holguintel: [address] [place], [place] [phone] FOLLOW UP 04/06/2018 Patient Education: Patient Medication Summary Completed 04/06/2018 Appointment: Cherri Holguintel: [phone] [facility] [place] RESCHEDULED 03/07/2018 Visit Diagnosis Plan: Gastro-esophageal reflux disease without esophagitis Discussion: patient had aciphex and prevacid on med list. order written out on patient's list to only give the aciphex as prescribed and not both. follow up in one month to assess medication efficacy and constipation. ICD-9 : 530.81 ICD-10 : K21.9 03/06/2018 Appointment: Maxine Glasgow [address] [place], [place] [phone] FOLLOW UP 03/06/2018 Patient Education: Patient Medication Summary Completed 03/06/2018 Visit Diagnosis Plan: Mood disorder due to known physiological condition with depressive features Discussion: Affect seems improved with c nasimbalta ICD-9 : 311 ICD-10 : F06.31 02/15/2018 [...] : F51.01 02/15/2018 Appointment: Cherri Holguin WPtel: [address] [place], [place] [phone] FOLLOW UP 02/15/2018 Patient Education: Patient Medication Summary Completed 02/15/2018 Appointment: Cherri Holguin WPtel: [facility] [facility], [facility] that the patient is [...] : M62.81 12/12/2017 Appointment: Cherri Holguin WPtel: [address] [place] [address] FOLLOW UP 12/12/2017 Patient Education: Patient Medication Summary Completed 12/12/2017 Visit Diagnosis Plan: Nondisplaced fract ure of medial malleolus of left tibia, subsequent encounter for closed fracture with delayed healing Discussion: Add miacalcin nasal spray for next 2mos Fwup with ortho Follow Up: 2 months ICD-9 : V54.16 ICD-10 : S82.55XG 10/10/2017 Appointment: Cherri Holguin WPtel: [address] [place] [address] FOLLOW UP 10/10/2017 Patient Education: Patient Medication Summary Completed 10/10/2017 Appointment: Cherri Holguin WPtel: [address] [place] [address] [place] RESCHEDULED 10/04/2017 Referral: Alvarado Mercado WPtel: [address] [address] [place] Referral Initiated 10/04/2017 Visit Diagnosis Plan: Acute upper respiratory infectio n, unspecified Discussion: continue with chika ragland as needed. increase fluids. notify if worsening symptoms including shortness of breath or fever. call or rtc later this week if no improvement. instructed patient to perform deep breathing exercises at home. ICD-9 : 465.9 ICD-10 : J06.9 09/19/2017 Appointment: Maxine Glasgow [address] [place] [address] ACUTE ILLNESS 09/19/2017 Patient Education: Patient Medication Summary Completed 09/19/2017 Appointment: Cherri Holguin WPtel: [address] [place] [address] [place] CANCELED 08/16/2017 Visit Diagnosis Plan: Muscle [...] : L98.8 08/04/2017 Appointment: Cherri Holguin WPtel: [address] [place], [place] [id number] FOLLOW UP 08/04/2017 Patient Education: Patient Medication [...] : Z85.841 07/12/2017 Appointment: Cherri Holguin WPtel: [address] [place], [place] [phone] [facility] Follow Up 07/12/2017 Patient Education: Patient Medication [...] : B35.6 05/30/2017 Appointment: Cherri Holguin WPtel: [address] [place], [place] [phone] [place] FOLLOW UP 05/30/2017 Patient Education: Patient Medication Summary Completed 05/30/2017 Visit Diagnosis Plan: Cellulitis of abdominal wall Dis cussion: Finish keflex Referral to wound care ICD-9 : 682.2 ICD-10 : L03.311 05/02/2017 Appointment: Cherri Holguin WPtel: [address] [place], [place] [phone] [place] FOLLOW UP 05/02/2017 Patient Education: Patient Medication Summary Completed 05/02/2017 Referral: Remigio Valdes WPtel: [address] [place], [place] [phone] [place] Referral Initiated 04/05/2017 Visit Diagnosis Plan: Cellulitis of chest wall Discuss ion: Keflex x1 week Continue daily dressing changes ICD-9 : 682.2 ICD-10 : L03.313 02/28/2017 Visit Diagnosis Plan: Muscle weakness (generalized) Di scussion: Stable Follow Up: 2 months ICD-9 : 728.87 ICD-10 : M62.81 02/28/2017 Appointment: Cherri Holguin WPtel: [address] [place], [place] [phone] [place] 02/24 confirmed~sl FOLLOW UP 02/28/2017 Patient Education: Patient Medication Summary Completed 02/28/2017 Visit Diagnosis Plan: Cellulitis of abdominal wall Dis cussion: Healing and improving so will finish all of clindamycin and monitor wounds for any worsening or recurrence ICD-9 : 682.2 ICD-10 : L03.311 12/06/2016 Appointment: Cherri Holguin WPtel: [address] [place], [place] [phone] [place] WORK IN 12/06/2016 Patient Education: Patient Medication Summary Completed 12/06/2016 Visit Diagnosis Plan: Cutaneous abscess of abdominal w all Discussion: Continue clindamycin and dressing changes To ER this weekend if worsens Fwup with me in 4 days for recheck ICD-9 : 682.2 ICD-10 : L02.211 12/02/2016 Appointment: Cherri Holguin WPtel: [address] [place], [place] [id number] [place] FOLLOW UP 12/02/2016 Patient Education: Patient Medication [...] 682.2 ICD-10 : L02.211 12/01/2016 Appointment: Cherri Holguin WPtel: [address] [place] [id number] WORK IN 12/01/2016 Patient Education: Patient Medication Summary Completed 12/01/2016 Visit Diagnosis Plan: Cutaneous abscess of abdominal w all Discussion: Copious amounts of pus expressed until bloody discharge Start clindamycin Recheck tomorrow Erythema outline marked Follow Up: 1 days ICD-9 : 682.2 ICD-10 : L02.211 11/30/2016 Appointment: Cherri Holguin WPtel: [address] [place] [phone] 11/29 confirmed`sl FOLLOW UP 11/30/2016 Patient Education: Patient Medication Summary Completed 11/30/2016 Appointment: Cherri Holguintel: [address] [place], [place] [id number] 11/10 scalp looks ok will discuss at [...] : K59.01 10/26/2016 Appointment: Cherri Holguin WPtel: [address] [place], [place] [phone] ACUTE ILLNESS 10/26/2016 Patient Education: Patient Medication Summary Completed 10/26/2016 Patient Education: Patient Medication Summary Completed 10/21/2016 Care Plan: CT HEAD/BRAIN W/O DYE LOINC : 61676-9 Pending 10/21/2016 Visit Diagnosis Plan: Other seborrheic dermatitis Disc ussion: Topical ketoconazole shampoo alternating with selsun blue Follow Up: 2 months ICD-9 : 706.3 ICD-10 : L21.8 09/13/2016 Appointment: Cherri Holguin WPtel: [address] [place], [place] [phone] 09/09 confirm`sl FOLLOW UP 09/13/2016 Patient Education: Patient Medication Summary Completed 09/13/2016 Appointment: Cherri Holguin WPtel: [address] [place], [place] [id number] [place] CANCELED 07/13/2016 Visit Plan: Low-dose CT scan-45 PPD of C hest Check hemoccult Discussed updated CT of head to recheck meningioma Zostavax vaccine Will obtain last colonoscopy results Update lab 07/12/2016 Appointment: Cherri Holguin WPtel: [address] [place], [place] [phone] [place] 07/08 confirmed~sl Annual Well Visit 07/12/2016 Patient Education: Patient Medication Summary Completed 07/12/2016 Visit Plan: Gets teeth extracted next mo nth then getting fitted for dentures so some of poor appetite is due to inability to eat certain things Continue current meds Defers flu shot 05/11/2016 Appointment: Cherri Holguin WPtel: [address] [place], [place] [phone] 05/10 confirmed~sl FOLLOW UP 05/11/2016 Patient Education: Patient Medication Summary Completed 05/11/2016 Visit Plan: Discussed nutrition and poss ible shakes as supplement until gets teeth completely pulled and fitted for full dentures Continue current meds Did have right scalp lesion removed 12/23/2015 Appointment: Cherri Holugin WPtel: [address] [place], [place] [phone] 12/21 confirmed-sp FOLLOW UP 12/23/2015 Patient Education: Patient Medication Summary Completed 12/23/2015 Referral: Tabitha Messer WPtel: [facility] [address] Spoke with Kayli at [facility] and gave her appt information Initiated 10/07/2015 Visit Plan: Start PT for ROM of neck Dis cussed milkshake in place of meal if does not eat at least 20% of meal--patient states she wants to lose weight and does not like the food served there See dermatology for removal of scalp lesion 09/23/2015 Appointment: Cherri Holguin WPtel: [address] [place], [place] [phone] 09/22/15 appt confirmed with Amber at [facility] FOLLOW UP 09/23/2015 Patient Education: Patient Medication Summary Completed 09/23/2015 Visit Plan: Stop miralax and senokot-s S tart dulcolax daily Patient asking for PT and OT again but admits they don't really help/she doesn't gain much from them 04/15/2015 Appointment: Cherri Holguin WPtel: [address] [place], [place] [phone] 04/11 confirmed with [facility] FOLLOW UP 04/15/2015 Patient Education: Patient Medication Summary Completed 04/15/2015 Visit Plan: Check CBC, CMP, TSH, free T4 , Vit D Continue current meds 01/14/2015 Appointment: Cherri Holguin WPtel: [address] [place], [place] [phone] AC[facility] ILLNESS 01/14/2015 Patient Education: Patient Medication Summary Completed 01/14/2015 Visit Plan: Change to Senokot-S 2 po BID Add miralax Has been released by burn center for now 10/29/2014 Appointment: Cherri Holguin WPtel: [address] [place], [place] [phone] 10/28 with Madiha FOLLOW UP 10/29/2014 Patient Education: Patient Medication Summary Completed 10/29/2014 Visit Plan: Patient is wheelchair bound now Continue current meds Patient following with [facility] end of 08/20/2014 Appointment: Cherri Holguin WPtel: [address] [place] [address] MLP rescheduled due to cold weather 08/19 message with Madiha at [facility] FOLLOW U P 08/20/2014 Patient Education: Patient Medication Summary Completed 08/20/2014 Visit Plan: Patient is eating better--10 0% of meals and wants feeding tube out but waiting on swallow eval Following with burn center and doing dressing changes to left chest every 3 days Refuses flu and pneumonia shots Fwup 4mos if goes to [place] or 1mo if stays in [place] 06/04/2014 Appointment: Cherri Holguin WPtel: [address] [place], [place] [phone] FOLLOW UP 06/04/2014 Patient Education: Patient Medication Summary Completed 06/04/2014 Visit Plan: Patient sees burn center nex t week Explained importance of taking nutren routinely as needs nutrition Increase prilosec to 20mg po BID Smoking Cessation 05/06/2014 Appointment: Cherri Holguin WPtel: [address] [place], [place] [phone] 05/03 vm on patient phone 05/03 message with Maria L at [facility] Follow Up 05/06/2014 Patient Education: Patient Medication Summary Completed 05/06/2014 Visit Plan: Finish abx Brian wrap to left LE and elevate 08/07/2013 [facility]ment[facility] [phone] [id number] [facility] Follow Up 07/10 Patient Education: Patient Medication Summary Completed 08/07/2013 Appointment: Cherri Holguin WPtel: [address] [place], [place] [id number] 07/18 appointment confirmed with patient 07/19 NO SHOW FOLLOW UP 07/19/2013 Visit Plan: Continue current meds Contin ue PT 05/23/2013 Appointment: Cherri Holguin WPtel: [address] [place], [place] [phone] 05/22 vm...appt confirmed FOLLOW UP 2012 Patient Education: Patient Medication Summary Completed 05/23/2013 Visit Plan: Long discussion about need f or 24hr care Pt wants to go home 04/25/2013 Appointment: Cherri Holguin WPtel: [address] [place], [place] [phone] Appt confirmed with Augusto at [facility] Follow Up 04/25/2013 Patient Education: Patient Medication Summary Completed 04/25/2013 Appointment: Cherri Holguin WPtel: [address] [place], [place] [phone] 04/20 message left at [facility] FOLLOW UP 04/23/2013 Visit Plan: Continue current meds 01/22/2013 Appointment: Cherri Holguin WPtel: [address] [place], [place] [phone] 01/22 vm left FOLLOW UP 01/22/2013 Patient Education: Patient Medication Summary Completed 01/22/2013 Appointment: Cherri Holguin WPtel: [address] [place], [place] [phone] 11/20 left message...patient called in a t 10:00am and said she was unable to get to her car. She rescheduled for 11/27 11am 11/24 left message 11/29 called to confirm, patient cancell ed due to no ride from care van. patient will call [facility] and see when they can bring her and then call us to schedule FOLLOW UP 11/30/2012 Visit Plan: Going to go home at the end of week with caregiver Continue current meds 10/18/2012 Appointment: Cherri Holguintel: [address] [place], [place] [phone] 10/17 appt confirmed with Reyna FOLLOW UP 10/18/2012 Patient Education: Patient Medication Summary Completed 10/18/2012 Visit Plan: Continue and finish PT Sultana bolton current meds Fwup October 19 or --pts 100 days is up October 21 09/25/2012 Appointment: Cherri Holguintel: [address] [place], [place] [phone] [place] worked in since [facility] just droppe d her off. She was on shedule at one point but showed it was cancelled WORK IN Appointment: Cherri Holguin WPtel: [address] [place], [place] [phone] 07/17 Cancelled 09/25 Appt - Patient has appointments on 07/08 & 07/27 FOLLOW UP 09/25/2012 Patient Education: Patient Medication Summary Completed 09/25/2012 Visit Plan: Continue current meds Pt wan ts to go home when her 100 days are up 08/24/2012 Appointment: Cherri Holguintel: [address] [place], [place] [phone] [place] FOLLOW UP 08/24/2012 Patient Education: Patient Medication Summary Completed 08/24/2012 Visit Plan: DC tramadol Repeat UA and ch edu UDS Start PT for neck Discussed neurology eval, but pt has been to several in past and even [facility] 07/27/2012 Appointment: Cherri Holguintel: [address] [place], [place] [phone] [place] FOLLOW UP 07/27/2012 Patient Education: Patient Medication Summary Completed 07/27/2012 Appointment: Cherri Holguin WPtel: [address] [place] [address] 07/17 - left message..07/17 left message with Antonella at [facility] pt has appt tomorrow and on I think the 07/18 appt was scheduled prior to hospitalization. 07/18 no showed. just entered [facility] so no show is forgiven FOLLOW UP 07/18/2012 Appointment: Tasneem Esquivel WPtel: [address] [place] [address] ACUTE ILLNESS 07/05/2012 Patient Education: Patient Medication Summary Completed 07/05/2012 Appointment: Cherri Holguin WPtel: [address] [place] [address] FOLLOW UP 05/29/2012 Patient Education: Patient Medication Summary Completed 05/29/2012 Appointment: Cherri Holguin WPtel: [address] [place] [address] FOLLOW UP 02/02/2012 Patient Education: Patient Medication Summary Completed 02/02/2012 Visit Plan: Continue current meds Check CBC, CMP, TSH, Free T4, B12 11/03/2011 Appointment: Cherri Holguin WPtel: [address] [place] [address] FOLLOW UP 11/03/2011 Patient Education: Patient Medication Summary Completed 11/03/2011 Visit Plan: Adderall refilled Continue c urrent meds 08/25/2011 Appointment: Cherri Holguin WPtel: [address] [place] [address] FOLLOW UP 08/25/2011 Patient Education: Patient Medication Summary Completed 08/25/2011 Appointment: Cherri Holguin WPtel: [address] [place] [address] Appointment was confirmed. FOLLOW UP 08/16 Visit Plan: Esther is eye doctor. Will u se eye drop.(Cipro as she claims allergy (nausea). Pt. is accompanied by "grounds keepers" from [facility]. Written instructions given for pt. to be seen in follow up by Esther. Written RX also given to pt. for cipro eye drops. Pt. is instructed that the RX has been electronically sent to [facility]. 05/27/2011 Appointment: Tasneem Esquivel WPtel: [address] [place] [address] ACUTE ILLNESS 05/27/2011 Patient Education: Patient Medication Summary Completed 05/27/2011 Visit Plan: Continue increased dose of A dderall 04/15/2011 Appointment: Cherri Holguin WPtel: [address] [place] [address] FOLLOW UP 04/15/2011 Patient Education: Patient Medication Summary Completed 04/15/2011 Appointment: Cherri Holguin WPtel: [address] [place] [address] [place] FOLLOW UP 03/22/2011 Patient Education: Patient Medication Summary Completed 03/22/2011 Appointment: Cherri Holguin WPtel: [address] [place] [address] FOLLOW UP 02/25/2011 Visit Plan: Trial of Wellbutrin XL 150mg q AM 02/22/2011 Appointment: Cherri Holguin WPtel: [address] [place], [place] [phone] [place] FOLLOW UP 02/22/2011 Patient Education: Patient Medication Summary Completed 02/22/2011 Visit Plan: Continue PT Add Cymbalta 30m g daily 01/26/2011 Appointment: Cherri Holguin WPtel: [address] [place] [address] [place] FOLLOW UP 01/26/2011 Patient Education: Patient Medication Summary Completed 01/26/2011 Visit Plan: Cont current meds and PT Exrenetta m for Power chair completed Adderall rx refilled 06/15/2010 Appointment: Cherri Holguin WPtel: [address] [place] [address] ESTABLISHED PATIENT 06/15/2010 Patient Education: Patient Medication Summary Completed 06/15/2010 Visit Plan: To rehab today for PT/OT--I will follow on rehab unit 05/04/2010 Appointment: Cherri Holguin WPtel: [phone] [facility] FOLLOW UP 05/04/2010 Patient Education: Patient Medication Summary Completed 05/04/2010 Visit Plan: Cont PT Cont Forteo Long dis cussion about living home--will discuss with PT when finishes this session 03/03/2010 Appointment: Cherri Holguin WPtel: [address] [facility] FOLLOW UP 03/03/2010 Patient Education: Patient Medication Summary Completed 03/03/2010 Visit Plan: EGD by Dr. Dang Pt agrees to restart Forteo 10/20/2009 Appointment: Cherri Holguin WPtel: [address] [facility] [place] FOLLOW UP 10/20/2009 Patient Education: Patient Medication Summary Completed 10/20/2009 Referral: Antonio Gandhi WPtel: [phone] [id number] [place] Referral Initiated Instructions Comment . Low-dose [...] meds Patient following with [facility] end of October . Patient is eating [...] several in past and even [facility] . Continue current meds Check CBC, CMP, TSH, Free T4, B12 . Adderall refilled Continue current meds . 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 Will use eye bj p.(Cipro as she claims allergy (nausea). Pt. is accompanied by "grounds keepers" from [facility]. Written instructions given for pt. to be [...]
--- OUTSIDE RECORDS SUMMARY | 2020-03-05 20:46 | XMS REPORT | CCD ---
Author Author Rosario Holguin D.O. Organization [facility] Address [address] [place] [address] Phone Care Team Providers Care Director Of Alumni Relations Name Role Phone Cherri Holguin D.O., PP Unavailable CCM Unavailable Summary Purpose Interface Exchange Insurance Providers Payer name Policy type / Coverage type Covered democrat ID Effective Begin Date Effective End Date [place] MEDICARE PART B [place] Medicare Part B [id number] Unknown AARP Medicare Part B [id number] Unknown Family History Family History data not found Social History Social History Element Codes Description Effective Dates Tobacco history SNOMED CT: 6360033 Former smoker 04/15/2015 Allergies, Adverse Reactions, Alerts [...] Instructions Tessalon Perles 100 mg capsule RxNorm: 881217 1 Capsule(s) Oral Q8H as needed 12/03/2019 No Stop Date Active glycerin (adult) rectal suppository RxNorm: 1 Cardenas ppository Rectal and Tuesday12/03/2019 No Stop Date Active cyanocobalamin (vit B-12) 1,000 mcg/mL injection solution Rx Norm: 870412 1 Milliliter(s) Intramuscular every 2 weeks 06/26/2019 09/24/2019 Inacti ve cyanocobalamin (vit B-12) 1,000 mcg/mL injection solution Rx Norm: 395277 1 Milliliter(s) Intramuscular every 2 weeks 06/26/2019 06/25/2019 Inacti ve bisacodyl 10 mg rectal suppository RxNorm: 415002 1 Sup pository Rectal QD as needed 05/10/2019 No Stop Date Active glycerin (adult) rectal suppository RxNorm: 4283545 1 Suppositor y RTL BIW 07/25/2018 12/02/2019 Inactive rabeprazole 20 mg tablet,delayed release RxNorm: 044097 1 Table t(s) PO QD 03/01/2018 05/29/2018 Inactive replaces lansoprazol e Adderall XR 10 mg capsule,extended release RxNorm: 824643 1 Cap teresa(s) PO QAM 10/20/2017 12/19/2017 Inactive Tessalon Perles 100 mg capsule RxNorm: 509503 1 Capsule (s) PO TID as needed for cough 09/16/2017 09/30/2019 Inactive Cymbalta 30 mg capsule,delayed release RxNorm: 088054 1 Capsule (s) PO QD 08/17/2017 12/02/2019 Inactive nystatin 100,000 unit/gram topical powder RxNorm: 803047 1 Appl ication TOP BID 08/16/2017 02/14/2018 Inactive Adderall XR 10 mg capsule,extended release RxNorm: 940340 1 Cap teresa(s) PO QAM 08/11/2017 09/09/2017 Inactive Adderall XR 10 mg capsule,extended release RxNorm: 395838 1 Cap teresa(s) PO QAM 08/04/2017 08/03/2017 Inactive Adderall XR 10 mg capsule,extended release RxNorm: 611164 1 Cap teresa(s) PO QAM 08/04/2017 08/10/2017 Inactive Bactrim DS 800 mg-160 mg tablet RxNorm: 354922 1 Tablet(s) PO BID 1 08/28/2016 07/07/2017 Inactive clindamycin 300 mg capsule RxNorm: 936809 2 Capsule(s) PO TID doses for today and tomorrow 11/30/2016 05/01/2017 Inactive ketoconazole 2 % shampoo RxNorm: 440302 1 Application TOP twice a week 09/14/2016 05/01/2017 Inactive hydrocodone 5 mg-acetaminophen 325 mg tablet RxNorm: 972488 1 Tablet(s) PO Q6H as needed for pain 07/12/2016 05/01/2017 Inactive Cipro 250 mg tablet RxNorm: 110101 1 Tablet(s) PO BID 09/29/201509/09 Inactive cefuroxime axetil 250 mg tablet RxNorm: 920170 1 Tablet(s) PO BID 0 09/10/2015 09/16/2015 Inactive Micro-K 8 mEq capsule,extended release RxNorm: 637394 1 Capsule (s) PO QD 08/20/2015 08/16/2017 Inactive Micro-K 8 mEq capsule,extended release RxNorm: 709062 1 Capsule (s) PO QD 08/20/2015 08/19/2015 Inactive Adderall XR 20 mg capsule,extended release RxNorm: 328951 1 Cap teresa(s) PO QAM 04/30/2015 02/11/2016 Inactive hydroxyzine HCl 25 mg tablet RxNorm: 897182 1 Tablet(s) PO Q6H as needed for itching/hives 04/02/2015 09/12/2016 Inactive Miralax 17 gram oral powder packet RxNorm: 529864 17 Gr am(s) PO BID for constipation 02/26/2015 02/11/2016 Inactive Adderall XR 20 mg capsule,extended release RxNorm: 692270 1 Cap teresa(s) PO QAM 07/09/2014 08/07/2014 Inactive Adderall 20 mg tablet RxNorm: 114411 2 Tablet(s) PO QD 02/04/201408/2013 Inactive [AttnRPh: Saving apply/adjudicate RxGRP: SG20 RxBIN:[id number] RxPCN: ID#:[id number]] triamcinolone acetonide 0.1 % topical cream RxNorm: 0223366 1 Application TOP BID to affected area as needed 12/12/2013 01/13/2015 Inactive [ AttnRPh: Saving apply/adjudicate RxGRP:SG20 RxBIN:[id number] RxPCN: ID#:[id number]] Adderall 20 mg tablet RxNorm: 220720 2 Tablet(s) PO QD 12/04/2013 Inactive [AttnRPh: Saving apply/adjudicate RxGRP: SG20 RxBIN:[id number] RxPCN: ID#:[id number]] Adderall 20 mg tablet RxNorm: 757201 2 Tablet(s) PO QD 12/03/2013 Inactive [AttnRPh: Saving apply/adjudicate RxGRP: SG20 RxBIN:[id number] RxPCN: ID#:[id number]] Adderall 20 mg tablet RxNorm: 946960 2 Tablet(s) PO QD 11/02/2013 Inactive Adderall 20 mg tablet RxNorm: 590900 2 Tablet(s) PO QD 10/01/2013 Inactive meloxicam 7.5 mg tablet RxNorm: 882647 1 Tablet(s) PO QD 09/24/2013 0 08/19/2014 Inactive lisinopril 20 mg tablet RxNorm: 313579 1 Tablet(s) PO QD 09/24/2013 0 08/19/2014 Inactive Protonix 40 mg tablet,delayed release RxNorm: 890477 1 Tablet(s ) PO QD 09/24/2013 08/19/2014 Inactive Adderall 20 mg tablet RxNorm: 825091 2 Tablet(s) PO QD 08/29/2013 Inactive Adderall 20 mg tablet RxNorm: 571714 2 Tablet(s) PO QD 08/02/2013 Inactive hydroxyzine HCl 25 mg tablet RxNorm: 266194 1 Tablet(s) PO Q6H as needed 06/29/2013 08/19/2014 Inactive Adderall 20 mg tablet RxNorm: 708480 2 Tablet(s) PO QD 05/22/2013 Inactive Protonix 40 mg tablet,delayed release RxNorm: 680173 1 Tablet(s ) PO QD 05/15/2013 09/11/2013 Inactive meloxicam 7.5 mg tablet RxNorm: 904708 1 Tablet(s) PO QD 05/15/2013 0 09/11/2013 Inactive lisinopril 20 mg tablet RxNorm: 096646 1 Tablet(s) PO QD 05/15/2013 0 09/11/2013 Inactive Adderall 20 mg tablet RxNorm: 092371 2 Tablet(s) PO QD 04/02/2013 No Stop Date Active Adderall 20 mg tablet RxNorm: 241597 2 Tablet(s) PO QD 02/27/2013 No Stop Date Active Adderall 20 mg tablet RxNorm: 285639 2 Tablet(s) PO QD 01/22/2013 No Stop Date Active Adderall 20 mg tablet RxNorm: 944279 2 Tablet(s) PO QD 12/28/2012 No Stop Date Active Adderall 20 mg tablet RxNorm: 702494 2 Tablet(s) PO QD 12/01/2012 No Stop Date Active Adderall 20 mg tablet RxNorm: 076099 2 Tablet(s) PO QD 11/01/2012 No Stop Date Active K-Dur 20 mEq tablet,extended release RxNorm: 581149 1 Tablet(s) PO QD 10/19/2012 11/26/2018 Inactive meloxicam 7.5 mg tablet RxNorm: 813130 1 Tablet(s) PO QD 10/19/2012 0 04/16/2013 Inactive Protonix 40 mg tablet,delayed release RxNorm: 891130 1 Tablet(s ) PO QD 10/19/2012 04/16/2013 Inactive lisinopril 20 mg tablet RxNorm: 212395 1 Tablet(s) PO QD 10/19/2012 0 04/16/2013 Inactive Cipro 500 mg tablet RxNorm: 232563 1 Tablet(s) PO BID 07/05/201211/2011 Inactive Adderall XR 20 mg capsule,extended release RxNorm: 202061 2 Cap teresa(s) PO QAM 06/12/2012 07/26/2012 Inactive Adderall XR 20 mg capsule,extended release RxNorm: 147382 2 Cap teresa(s) PO QAM 05/16/2012 06/11/2012 Inactive Adderall XR 20 mg capsule,extended release RxNorm: 592384 2 Cap teresa(s) PO QAM 04/21/2012 05/15/2012 Inactive Adderall XR 20 mg capsule,extended release RxNorm: 090382 2 Cap teresa(s) PO QAM 02/16/2012 03/16/2012 Inactive Enablex 15 mg 24 hr Tab RxNorm: 305126 1 Tablet(s) PO QPM repla mady Vesicare 02/07/2012 05/28/2012 Inactive Enablex 15 mg 24 hr Tab RxNorm: 155432 1 Tablet(s) PO QPM repla mady Vesicare 02/07/2012 08/04/2012 Inactive Protonix 40 mg Tab RxNorm: 567064 1 Tablet(s) PO QD 02/07/20122011 Inactive Protonix 40 mg Tab RxNorm: 897203 1 Tablet(s) PO QD 02/02/20122011 Inactive Enablex 15 mg 24 hr Tab RxNorm: 812058 1 Tablet(s) PO QPM repla mady Vesicare 02/02/2012 02/06/2012 Inactive Adderall XR 20 mg 24 hr Cap RxNorm: 515825 2 Capsule(s) PO QAM 01/0602/15/2012 Inactive Adderall XR 20 mg 24 hr Cap RxNorm: 834450 2 Capsule(s) PO QAM 12/0601/15/2012 Inactive Adderall XR 20 mg 24 hr Cap RxNorm: 627132 2 Capsule(s) PO QAM 11/0612/16/2011 Inactive Adderall XR 20 mg 24 hr Cap RxNorm: 852343 2 Capsule(s) PO QAM 10/0611/17/2011 Inactive Adderall XR 20 mg 24 hr Cap RxNorm: 129474 2 Capsule(s) PO QAM 09/0910/24/2011 Inactive Prevacid 30 mg Cap RxNorm: 575756 1 Capsule(s) PO QD 07/30/201109/27 Inactive Adderall XR 20 mg 24 hr Cap RxNorm: 499176 2 Capsule(s) PO QAM 07/0908/28/2011 Inactive Adderall XR 20 mg 24 hr Cap RxNorm: 633432 2 Capsule(s) PO QAM 06/0807/21/2011 Inactive ciprofloxacin 0.3 % Eye Drops RxNorm: 892393 2 Drop(s) OPH Q2H 05/0905/31/2011 Inactive Adderall XR 20 mg 24 hr Cap RxNorm: 807245 2 Capsule(s) PO QAM 05/08 No Stop Date Active Wellbutrin XL 150 mg 24 hr Tab RxNorm: 145616 1 Tablet(s) PO QAM 04/14/2011 Inactive Vesicare 10 mg Tab RxNorm: 248694 1 Tablet(s) PO QD 12/24/20102011 Inactive Vesicare 10 mg Tab RxNorm: 557136 1 Tablet(s) PO QD 12/21/20102018 Inactive Adderall XR 30 mg 24 hr Cap RxNorm: 392098 1 Capsule(s) PO QD 11/1712/16/2010 Inactive Vesicare 10 mg Tab RxNorm: 746275 1 Tablet(s) PO QD 09/21/20102010 Inactive Adderall XR 30 mg 24 hr Cap RxNorm: 108594 1 Capsule(s) PO 09/17/19 11 10/16/2010 Inactive Adderall XR 30 mg 24 hr Cap RxNorm: 805275 1 Capsule(s) PO QAM 07/0911/26/2018 Inactive Adderall XR 30 mg 24 hr Cap RxNorm: 055342 1 Capsule(s) PO QAM 07/0908/03/2010 Inactive Adderall XR 20 mg 24 hr Cap RxNorm: 333289 2 Capsule(s) PO QD 01/2602/02/2010 Inactive Adderall XR 20 mg 24 hr Cap RxNorm: 199549 1 Capsule(s) PO QD 01/2605/03/2010 Inactive Forteo 20 mcg/dose (600 mcg/2.4 mL) Sub-Q Pen Injector RxNorm: 1 006529 SQ 12/30/2009 01/25/2011 Inactive hyoscyamine 0.125 mg sublingual tablet RxNorm: 4821413 1 Tablet(s) SL Q4H as needed for excessive secretions No Start Date Active Senokot-S 8.6 mg-50 mg tablet RxNorm: 8652421 2 Tablet(s) PO BID No Start Date Active rabeprazole 20 mg tablet,delayed release RxNorm: 575920 1 Table t(s) PO QD No Start Date Active Micro-K 10 10 mEq capsule,extended release RxNorm: 416390 1 Cap teresa(s) PO QD No Start Date Active docusate sodium 100 mg tablet RxNorm: 9415730 1 Tablet(s) PO Q8H as needed No Start Date Active ondansetron HCl 4 mg tablet RxNorm: 422799 1 Tablet(s) PO Q4H a s needed No Start Date Active Vitamin D3 5,000 unit tablet RxNorm: 745371 1 Tablet(s) PO QD No Star t Date Active bisacodyl 5 mg tablet RxNorm: 797734 1 Tablet(s) PO BID as needed N o Start Date Active aspirin 81 mg tablet RxNorm: 908438 1 Tablet(s) PO QD No Start Date Active Multivitamin And Mineral oral RxNorm: oral No Start Date Active Benadryl 1 % topical cream RxNorm: 3312813 TOP as needed for hiv es No Start Date Active K-Dur 20 mEq tablet,extended release RxNorm: 898296 1 Tablet(s) PO QD No Start Date 08/19/2014 Inactive Colace 100 mg capsule RxNorm: 0047494 1 Capsule(s) PO BID No Start Date 01/19/2017 Inactive ketoconazole 2 % shampoo RxNorm: 352779 1 Application TOP twice a week No Start Date 09/13/2016 Inactive ibuprofen 600 mg tablet RxNorm: 805312 1 Tablet(s) PO Q6H as ne eded No Start Date 06/21/2018 Inactive Zaditor 0.025 % Eye Drops RxNorm: 667225 1 Drop(s) OPH BID No Start Date 05/28/2012 Inactive senna 8.6 mg tablet RxNorm: 529492 2 Tablet(s) PO BID No Start Date 0 02/11/2016 Inactive senna 8.6 mg tablet RxNorm: 948898 1 Tablet(s) PO BID No Start Date 0 02/11/2016 Inactive Amoxil 500 mg capsule RxNorm: 303867 1 Capsule(s) PO BID No Start D ate 05/01/2017 Inactive lisinopril 20 mg tablet RxNorm: 530547 1 Tablet(s) PO QD No Start D ate 10/18/2012 Inactive Prevacid 30 mg Capsule, delayed release RxNorm: 179886 1 Capsul e(s) PO QD No Start Date 02/01/2012 Inactive Senokot-S 8.6 mg-50 mg Tab RxNorm: 4413991 2 Tablet(s) PO QD PRN No Start Date 03/02/2010 Inactive Cymbalta 30 mg capsule,delayed release RxNorm: 578119 1 Capsule (s) PO QD No Start Date 08/16/2017 Inactive ketoconazole 2 % topical cream RxNorm: 745049 1 Applica tion TOP BID to scaly eyebrows No Start Date 05/01/2017 Inactive lorazepam 0.5 mg tablet RxNorm: 791256 1 Tablet(s) PO Q4H as ne eded No Start Date 06/21/2018 Inactive Vitamin C 500 mg tablet RxNorm: 843813 1 Tablet(s) PO QD No Start D ate 01/21/2013 Inactive albuterol sulfate 2.5 mg/3 mL (0.083 %) Neb Solution RxNorm: 539391 Milliliter(s) INH 1 vial in nebulizer every 4 hours as needed No Start Date 01/21/2013 Inactive Adderall XR 20 mg 24 hr Cap RxNorm: 655213 1 Capsule(s) PO QAM No S tart Date 01/25/2011 Inactive Xanax 0.25 mg Tab RxNorm: 293300 1/2 Tablet(s) PO BID PRN No Start Date 03/02/2010 Inactive Tylenol Extra Strength 500 mg Tab RxNorm: 866688 2 Tablet(s) PO PRN No Start Date 08/24/2011 Inactive Adderall 20 mg tablet RxNorm: 866554 2 Tablet(s) PO QD No Start Date 10/31/2012 Inactive bisacodyl 5 mg tablet,delayed release RxNorm: 604576 1 Tablet(s) PO Q12H as needed No Start Date 02/04/2019 Inactive Tessalon Perles 100 mg capsule RxNorm: 622811 1 Capsule (s) PO TID as needed for cough No Start Date 09/15/2017 Inactive Vitamin D3 1,000 unit tablet RxNorm: 256237 3 Tablet(s) PO QD No St art Date 02/22/2017 Inactive meloxicam 7.5 mg tablet RxNorm: 328006 1 Tablet(s) PO QD No Start D ate 10/18/2012 Inactive Bactroban 2 % topical ointment RxNorm: 980982 1 Application TOP QD No Start Date 12/11/2017 Inactive Toviaz 8 mg 24 hr Tab RxNorm: 506173 1 Tablet(s) PO QD No Start Date 09/21/2010 Inactive Prevacid 15 mg capsule,delayed release RxNorm: 413905 Capsule(s ) PO QD No Start Date 02/28/2018 Inactive K-Dur 20 mEq tablet,extended release RxNorm: 9999287 1 Tablet(s) PO QD No Start Date 10/18/2012 Inactive Adderall XR 20 mg 24 hr Cap RxNorm: 083592 2 Capsule(s) PO QAM No S tart Date 05/24/2011 Inactive Calcium with Vitamin D 600 mg-400 unit Tab RxNorm: 200060 1 Tab let(s) PO QD No Start Date 08/24/2011 Inactive Miralax 17 gram oral powder packet RxNorm: 445017 17 Gram(s) PO BID as needed No Start Date 11/26/2018 Inactive Zestril 10 mg Tab RxNorm: 047113 1 Tablet(s) PO QD No Start Date 10/06 Inactive baclofen 10 mg tablet RxNorm: 520354 1 Tablet(s) PO QHS No Start Da te 09/11/2015 Inactive Tums 500 Oral RxNorm: Oral No Start Date 01/13/2015 Inactive Senokot-S 8.6 mg-50 mg tablet RxNorm: 8300452 1 Tablet(s) PO BID No Start Date 11/26/2018 Inactive Prozac 10 mg Tab RxNorm: 209029 1 Capsule(s) PO QD No Start Date 10/06 Inactive Elavil 10 mg tablet RxNorm: 408158 1 Tablet(s) PO QHS No Start Date 0 12/12/2018 Inactive Dulcolax Stool Softener (docusate) 100 mg capsule RxNorm: 12 83406 1 Capsule(s) PO Q8H as needed No Start Date 01/19/2017 Inactive Adderall XR 30 mg 24 hr Cap RxNorm: 280375 1 Capsule(s) PO QAM No S tart Date 04/14/2011 Inactive Milk of Alexa-Genieara 15.25 % oral suspension RxNorm: oral No Start Date 11/26/2018 Inactive Tylenol 325 mg tablet RxNorm: 100803 2 Tablet(s) PO Q4H as needed N o Start Date 11/26/2018 Inactive Prilosec 20 mg capsule,delayed release RxNorm: 763809 1 Capsule (s) PO BID No Start Date 09/08/2014 Inactive Tylenol 8 Hour 650 mg tablet,extended release RxNorm: 141223 0 1 Tablet(s) PO Q4H as needed No Start Date 11/26/2018 Inactive Vitamin D3 2,000 unit tablet RxNorm: 086037 1 Tablet(s) PO QD No St art Date 02/22/2017 Inactive nystatin 100,000 unit/gram topical powder RxNorm: 933909 1 Appl ication TOP BID No Start Date 08/15/2017 Inactive morphine 20 mg/5 mL (4 mg/mL) oral solution RxNorm: 003813 .25 Milliliter(s) PO Q4H as needed No Start Date 09/24/2018 Inactive Forteo 20 mcg/dose (750 mcg/3 mL) Sub-Q Pen Injector RxNorm: 143 5115 SQ QD No Start Date 01/21/2010 Inactive ciprofloxacin 0.3 % Eye Drops RxNorm: 645235 2 Drop(s) OPH TID to affected eye No Start Date 08/23/2012 Inactive bisacodyl 5 mg tablet RxNorm: 850897 1 Tablet(s) PO BID No Start Da te 02/11/2016 Inactive Avosil 2 %-0.2 % topical ointment RxNorm: 1 Appl ication TOP Q8H as needed to burn sites No Start Date 11/26/2018 Inactive Milk of Magnesia 800 mg/5 mL oral suspension RxNorm: 331103 Milliliter(s) PO as needed No Start Date 06/20/2018 Inactive Atarax 25 mg tablet RxNorm: 107096 1 Tablet(s) PO Q4H prn itchi ng/hives No Start Date 08/24/2011 Inactive Adderall XR 30 mg 24 hr Cap RxNorm: 223418 1 Capsule(s) PO QAM No S tart Date 07/26/2010 Inactive Prevacid 30 mg Cap RxNorm: 003452 1 Capsule(s) PO QD No Start Date Inactive Vitamin C 500 mg tablet RxNorm: 239261 1 Tablet(s) PO BID No Start Date 07/11/2016 Inactive Vistaril 25 mg capsule RxNorm: 176904 1 Capsule(s) PO Q4H PRN No St art Date 03/02/2010 Inactive tramadol 50 mg tablet RxNorm: 365879 1 Tablet(s) PO TID as need ed for pain No Start Date 01/21/2013 Inactive Multivitamin & Mineral Formula tablet RxNorm: 1 Tablet(s) PO Q D No Start Date 06/22/2018 Inactive hydrocodone 5 mg-acetaminophen 325 mg tablet RxNorm: 980155 1 Tablet(s) PO Q4H as needed for pain No Start Date 06/24/2019 Inactive Multivitamin & Mineral Formula Oral RxNorm: Oral No Start Da te 03/02/2010 Inactive Miralax 17 gram oral powder packet RxNorm: 296567 17 Gr am(s) PO QPM for constipation No Start Date 02/25/2015 Inactive Percocet 5 mg-325 mg tablet RxNorm: 5739212 1-2 Tablet(s) PO Q4H as needed No Start Date 09/24/2018 Inactive triamcinolone acetonide 0.1 % topical cream RxNorm: 6529755 1 Application TOP TID to affected area as needed No Start Date 12/12/2013 Inactive rabeprazole 20 mg tablet,delayed release RxNorm: 859949 1 Table t(s) PO QD No Start Date 09/24/2018 Inactive Protonix 40 mg tablet,delayed release RxNorm: 749532 1 Tablet(s ) PO QD No Start Date 10/18/2012 Inactive Mobic 7.5 mg Tab RxNorm: 784886 1 Tablet(s) PO BID No Start Date 10/06 Inactive Sinemet CR 50 mg-200 mg Tab RxNorm: 041389 1 Tablet(s) PO QD No Sta rt Date 03/02/2010 Inactive Adderall XR 20 mg 24 hr Cap RxNorm: 852450 2 Capsule(s) PO QD No St art Date 02/02/2010 Inactive Medication Administered No Medication Administered data Immunizations No Immunization data Results Observation Observation Code Item Item Code Result Date S ervice Location COMPLETE BLOOD COUNT [id number] WBC 7.3 10e9/L 05/29/20 12 Unknown COMPLETE BLOOD COUNT [id number] RBC 5.20 10e12/L 2011 Unknown COMPLETE BLOOD COUNT [id number] HGB 15.3 g/dL 2 Unknown COMPLETE BLOOD COUNT [id number] HCT DET 45.9 % 2 Unknown COMPLETE BLOOD COUNT [id number] MCV 88.3 fL 2 Unknown COMPLETE BLOOD COUNT [id number] MCH 29.4 pg 2 Unknown COMPLETE BLOOD COUNT [id number] MCHC 33.3 g/dL 2 Unknown COMPLETE BLOOD COUNT [id number] PLT 341 10e9/L 05/29/20 12 Unknown COMPLETE BLOOD COUNT [id number] MPV 10.1 fL 2 Unknown COMPLETE BLOOD COUNT [id number] ASHLEY % 63.2 % 2 Unknown COMPLETE BLOOD COUNT [id number] LY % 27.4 % 2 Unknown COMPLETE BLOOD COUNT [id number] MON % 7.6 % 2 Unknown COMPLETE BLOOD COUNT [id number] EOS % 1.5 % 2 Unknown COMPLETE BLOOD COUNT [id number] BASO % 0.3 % 2 Unknown COMPLETE BLOOD COUNT [id number] RDW 13.6 % 2 Unknown COMPLETE BLOOD COUNT [id number] ABS ASHLEY 4.61 10e9/L 012 Unknown COMPLETE BLOOD COUNT [id number] ABS LYMPH 2.00 10e9/L 012 Unknown COMPLETE BLOOD COUNT [id number] ABS MONO 0.55 10e9/L 012 Unknown COMPLETE BLOOD COUNT [id number] ABS EOS 0.11 10e9/L 012 Unknown COMPLETE BLOOD COUNT [id number] ABS BASO 0.02 10e9/L 012 Unknown COMPLETE BLOOD COUNT [id number] RDW-SD 43.5 fL 2 Unknown THYROID STIMULATING HORMONE 69040 TSH 1.487 uIU/ML 05/29/2012 Unknown GFR CALC [id number] GFR AA >60 ML/MIN 05/29/2012 Unknown GFR CALC [id number] GFR NON-AA >60 ML/MIN 05/29/2012 Unknown FREE T4 15975 FREE T4 1.20 NG/DL 05/29/2012 Unknown COMPREHENSIVE METABOLIC 66622 AST 17 U/L 2011 Unknown COMPREHENSIVE METABOLIC 08235 ALT 16 IU/L 2011 Unknown COMPREHENSIVE METABOLIC 05155 BUN 9 MG/DL 2011 Unknown COMPREHENSIVE METABOLIC 83509 ALBUMIN 4.1 GM/DL 2011 Unknown COMPREHENSIVE METABOLIC 62891 CHLORIDE 106 MMOL/L 05/29 Unknown COMPREHENSIVE METABOLIC 61333 BILI TOT 0.4 MG/DL 2011 Unknown COMPREHENSIVE METABOLIC 15316 ALK PHOS 87 U/L 2011 Unknown COMPREHENSIVE METABOLIC 85953 SODIUM 142 MMOL/L 05/29 Unknown COMPREHENSIVE METABOLIC 67671 CREATININE 0.79 MG/DL 05/09 Unknown COMPREHENSIVE METABOLIC 98752 CALCIUM 9.2 MG/DL 2011 Unknown COMPREHENSIVE METABOLIC 73905 POTASSIUM 3.6 MMOL/L 05/29 Unknown COMPREHENSIVE METABOLIC 81477 PROT TOT 6.5 GM/DL 2011 Unknown COMPREHENSIVE METABOLIC 26340 Glucose 78 MG/DL 2011 Unknown COMPREHENSIVE METABOLIC 12830 BICARB 27 MMOL/L 2011 Unknown COMPREHENSIVE METABOLIC 33711 ANION GAP 9 MEQ/L 2011 Unknown Procedures Procedure Codes Date PPPS, subseq visit CPT-4: G0439 08/03/2018 PPPS, subseq visit CPT-4: G0439 07/12/2016 CUR TOBACCO NON-USER CPT-4: G8457 04/15/2015 URINALYSIS NONAUTO W/O SCOPE CPT-4: 61370 07/05/2012 URINE CULTURE/ COLONY COUNT CPT-4: 70288 07/05/2012 PRESCRIP TRANSMIT VIA ERX SY CPT-4: G8553 07/05/2012 ROUTINE VENIPUNCTURE CPT-4: 36819 05/29/2012 ASSAY OF FREE THYROXINE CPT-4: 08033 05/29/2012 ASSAY THYROID STIM HORMONE CPT-4: 54128 05/29/2012 COMPREHEN METABOLIC PANEL CPT-4: 94565 05/29/2012 COMPLETE CBC W/AUTO DIFF WBC CPT-4: 27359 05/29/2012 PRESCRIP TRANSMIT VIA ERX SY CPT-4: G8553 05/29/2012 PRESCRIP TRANSMIT VIA ERX SY CPT-4: G8553 02/02/2012 PRESCRIP TRANSMIT VIA ERX SY CPT-4: G8553 05/27/2011 PRESCRIP TRANSMIT VIA ERX SY CPT-4: G8553 02/22/2011 SERVICE REQUIRED FOR PMD CPT-4: G0372 06/15/2010 ROUTINE VENIPUNCTURE CPT-4: 55828 10/20/2009 Vital Signs Date Vital 12/03/2019 Blood [...] 1: 114/66 Code: 8480-6 BMI: 25.8 Code: 61819-6 Heart Rate 1: 72 bpm Height: 5'2" [...] 1: 122/80 Code: 8480-6 BMI: 24.9 Code: 96849-1 Heart Rate 1: 100 bpm Height: 5'2" Respiratory Rate: 20 bpm Temperature: 37 .1 (C) / 98.8 (F) Weight: 136 lbs 11/03/2011 Blood Pressure 1: 104/60 Code: 8480-6 BMI: 24.1 Code: 59276-8 Heart Rate 1: 88 bpm Height: 5'2" Respiratory Rate: 20 bpm Temperature: 36 .6 (C) / 97.8 (F) Weight: 132 lbs 08/25/2011 Blood Pressure 1: 128/86 Code: 8480-6 BMI: 24.9 Code: 37025-6 Heart Rate 1: 76 bpm Height: 5'2" Respiratory Rate: 20 bpm Temperature: 36 .2 (C) / 97.2 (F) Weight: 136 lbs 05/27/2011 Blood Pressure 1: 130/90 Code: 8480-6 BMI: 25.1 Code: 25277-6 Heart Rate 1: 68 bpm Height: 5'2" [...] 1: 114/70 Code: 8480-6 BMI: 22.9 Code: 20524-6 Heart Rate 1: 92 bpm Height: 5'2" [...] of left upper extremity[ICD10: S41.112A] Cherri MACHUCA [facility] CPT-4: 20659 12/10/2019 ([id number]) OFFICE/OUTPATIENT VISIT EST Diagnosis: Constipation[ICD10: K59.00] Diagnosis: Sacral decubitus ulcer[ICD10: L89.159] Cherri OLSON [facility] CPT-4: 20093 12/03/2019 ([id number]) OFFICE/OUTPATIENT VISIT EST 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] Diagnosis: Muscle weakness (generalized)[ICD10: M62.81] Cherri MACHUCA [facility] CPT-4: 98888 10/01/2019 ([id number]) OFFICE/OUTPATIENT VISIT EST Diagnosis: Personal history of malignant neoplasm of brain[ICD10: Z85.841] Diagnosis: Muscle weakness (generalized)[ICD10: M62.81] Diagnosis: Hemiplegia, unspecified affecting left dominant side[ICD10: G81.92] Diagnosis: Contracture, 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] Cherri Ezio [facility] CPT-4: 57480 06/25/2019 ([id number]) OFFICE/OUTPATIENT VISIT EST Diagnosis: Attention and concentration deficit[ICD10: R41.840] Diagnosis: Abnormal weight loss[ICD10: R63.4] Cherri [facility] CPT-4: 66020 02/05/2019 ([id number]) OFFICE/OUTPATIENT VISIT EST Diagnosis: Attention and concentration deficit[ICD10: R41.840] Cherri [facility] CPT-4: 28801 12/13/2018 ([id number]) OFFICE/OUTPATIENT VISIT EST Diagnosis: Laceration without foreign body of left upper arm, sequela[ICD10: S41.112S] Diagnosis: Other fatigue[ICD10: R53.83] Cherri HOLGUIN DO [facility] CPT-4: 78793 11/27/2018 ([id number]) OFFICE/OUTPATIENT VISIT EST Diagnosis: Gastro-esophageal reflux disease without esophagitis[ICD10: K21.9] Diagnosis: Contracture, 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] Diagnosis: Slow transit constipation[ICD10: K59.01] Cherri HOLGUIN DO [facility] CPT-4: 86393 09/25/2018 ([id number]) OFFICE/OUTPATIENT VISIT EST Diagnosis: Gastro-esophageal reflux disease without esophagitis[ICD10: K21.9] Diagnosis: Muscle weakness (generalized)[ICD10: M62.81] Maxine HOLGUIN DO [facility] CPT-4: 61104 06/22/2018 ([id number]) OFFICE/OUTPATIENT VISIT EST Diagnosis: Gastro-esophageal reflux disease without esophagitis[ICD10: K21.9] Cherri HOLGUIN DO [facility] CPT-4: 63273 04/06/2018 ([id number]) OFFICE/OUTPATIENT VISIT EST Diagnosis: Gastro-esophageal reflux disease without esophagitis[ICD10: K21.9] Maxine HOLGUIN DO [facility] CPT-4: 05022 03/06/2018 ([id number]) OFFICE/OUTPATIENT VISIT EST Diagnosis: 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] Diagnosis: Gastro-esophageal reflux disease without esophagitis[ICD10: K21.9] Diagnosis: Slow transit constipation[ICD10: K59.01] Diagnosis: Primary insomnia[ICD10: F51.01] Cherri HOLGUIN [employer] [facility] CPT-4: 26609 02/15/2018 ([id number]) OFFICE/OUTPATIENT VISIT EST Diagnosis: Muscle weakness (generalized)[ICD10: M62.81] Diagnosis: Gastro-esophageal reflux disease without esophagitis[ICD10: K21.9] Cherri HOLGUIN [employer] CPT-4: 54001 12/12/2017 ([id number]) OFFICE/OUTPATIENT VISIT EST Diagnosis: Nondisplaced fracture of medial malleolus of left tibia, subsequent encounter for closed fracture with delayed healing[ICD10: S82.55XG] Cherri HOLGUIN [facility] CPT-4: 83755 10/10/2017 OFFICE/OUTPATIENT VISIT EST Diagnosis: Acute upper respiratory infection, unspecified[ICD10: J06.9] Maxine HOLGUIN [employer] CPT-4: 84225 09/19/2017 ([id number]) OFFICE/OUTPATIENT VISIT EST Diagnosis: Muscle weakness (generalized)[ICD10: M62.81] Diagnosis: Other specified disorders of the skin and subcutaneous tissue[ICD10: L98.8] Cherri HOLGUIN [employer] CPT-4: 34496 08/04/2017 ([id number]) OFFICE/OUTPATIENT VISIT EST Diagnosis: Unspecified open wound of abdominal wall, left upper quadrant with penetration into peritoneal cavity, sequela[ICD10: S31.601S] Diagnosis: Muscle weakness (generalized)[ICD10: M62.81] Diagnosis: Personal history of malignant neoplasm of brain[ICD10: Z85.841] Cherri HOLGUIN [employer] CPT-4: 34716 07/12/2017 ([id number]) OFFICE/OUTPATIENT VISIT EST Diagnosis: Non-pressure chronic ulcer of skin of other sites with unspecified severity[ICD10: L98.499] Diagnosis: Tinea cruris[ICD10: B35.6] Cherri RUSHING DO [facility] CPT-4: 90803 05/30/2017 ([id number]) OFFICE/OUTPATIENT VISIT EST Diagnosis: Cellulitis of abdominal wall[ICD10: L03.311] Diagnosis: Cellulitis of chest wall[ICD10: L03.313] Cherri HOLGUIN DO [facility] CPT-4: 60236 05/02/2017 ([id number]) OFFICE/OUTPATIENT VISIT EST Diagnosis: Cellulitis of chest wall[ICD10: L03.313] Diagnosis: Muscle weakness (generalized)[ICD10: M62.81] Cherri HOLGUIN DO [facility] CPT-4: 23395 02/28/2017 ([id number]) OFFICE/OUTPATIENT VISIT EST Diagnosis: Cellulitis of abdominal wall[ICD10: L03.311] Cherri HOGLUIN [facility] CPT-4: 87835 12/06/2016 OFFICE/OUTPATIENT VISIT EST Diagnosis: Cutaneous abscess of abdominal wall[ICD10: L02.211] Diagnosis: Cellulitis of abdominal wall[ICD10: L03.311] Cherri HOLGUIN DO [facility] CPT-4: 06326 12/02/2016 ([id number]) OFFICE/OUTPATIENT VISIT EST Diagnosis: Cellulitis of abdominal wall[ICD10: L03.311] Diagnosis: Cutaneous abscess of abdominal wall[ICD10: L02.211] Cherri HOLGUIN DO [facility] CPT-4: 10343 12/01/2016 ([id number]) OFFICE/OUTPATIENT VISIT EST Diagnosis: Cutaneous abscess of abdominal wall[ICD10: L02.211] Diagnosis: Cellulitis of abdominal wall[ICD10: L03.311] Cherri HOLGUIN DO [facility] CPT-4: 31920 11/30/2016 ([id number]) OFFICE/OUTPATIENT VISIT EST Diagnosis: Muscle weakness (generalized)[ICD10: M62.81] Diagnosis: Slow transit constipation[ICD10: K59.01] Diagnosis: 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, 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] Cherri HOLGUIN DO [facility] CPT-4: 95424 10/26/2016 ([id number]) OFFICE/OUTPATIENT VISIT EST Diagnosis: Other seborrheic dermatitis[ICD10: L21.8] Cherri HOLGUIN DO [facility] CPT-4: 62706 09/13/2016 ([id number]) OFFICE/OUTPATIENT VISIT EST Diagnosis: Contracture, 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] Diagnosis: Nicotine dependence, cigarettes, uncomplicated[ICD10: F17.210] Diagnosis: Hemiplegia, unspecified affecting unspecified side[ICD10: G81.90] Diagnosis: Muscle weakness (generalized)[ICD10: M62.81] Cherri HOLGUIN DO [facility] CPT-4: 67251 05/11/2016 ([id number]) OFFICE/OUTPATIENT VISIT EST Diagnosis: Muscle weakness (generalized)[ICD10: M62.81] Diagnosis: Abnormal weight loss[ICD10: R63.4] Cherri HOLGUIN [facility] CPT-4: 98843 12/23/2015 ([id number]) OFFICE/OUTPATIENT VISIT EST Diagnosis: Torticollis[ICD10: M43.6] Diagnosis: Cervicalgia[ICD10: M54.2] Diagnosis: Basal cell carcinoma of skin, unspecified[ICD10: C44.91] Cherri HOLGUIN [facility] CPT-4: 44514 09/23/2015 ([id number]) OFFICE/OUTPATIENT VISIT EST Diagnosis: Constipation[ICD9: 564.00] Diagnosis: MUSCLE WEAKNESS-GENERAL[ICD9: 728.87] Cherri SANCHEZDELFINA RYLIE Martha HOLGUIN [employer] CPT-4: 45558 04/15/2015 ([id number]) OFFICE/OUTPATIENT VISIT EST Diagnosis: MALAISE AND FATIGUE[ICD9: 780.79] Diagnosis: 3RD DEGREE BURN[ICD9: 949.3] Cherricesar JOHNSTONLINE Martha HOLGUIN [facility] CPT-4: 80981 01/14/2015 ([id number]) OFFICE/OUTPATIENT VISIT EST Diagnosis: Constipation[ICD9: 564.00] Diagnosis: MUSCLE WEAKNESS-GENERAL[ICD9: 728.87] Diagnosis: 3RD DEGREE BURN[ICD9: 949.3] Cherri HOLGUIN DO [facility] CPT-4: 24154 10/29/2014 ([id number]) OFFICE/OUTPATIENT VISIT EST Diagnosis: Weakness generalized[ICD9: 780.79] Diagnosis: 3RD DEGREE BURN[ICD9: 949.3] Cherri HOLGUIN DO [facility] CPT-4: 77034 08/20/2014 ([id number]) OFFICE/OUTPATIENT VISIT EST Diagnosis: 3RD DEGREE BURN[ICD9: 949.3] Diagnosis: DYSPHAGIA NEC[ICD9: 787.29] Cherri MICHAELS [facility] CPT-4: 53014 06/04/2014 ([id number]) OFFICE/OUTPATIENT VISIT EST Diagnosis: 3RD DEGREE BURN[ICD9: 949.3] Diagnosis: Complication of skin graft[ICD9: 996.52] Diagnosis: TOBACCO USE DISORDER[ICD9: 305.1] [facility] 10[facility] 05/06/2014 ([id number]) OFFICE/OUTPATIENT VISIT EST Diagnosis: CELLULITIS[ICD9: 682.9] Cherri BRUNSON [facility] CPT-4: 73976 08/07/2013 ([id number]) OFFICE/OUTPATIENT VISIT EST Diagnosis: MUSCLE WEAKNESS-GENERAL[ICD9: 728.87] Diagnosis: MALAISE AND FATIGUE[ICD9: 780.79] Diagnosis: ABNORMALITY OF GAIT[ICD9: 781.2] Cherri HOLGUIN [facility] CPT-4: 69419 05/23/2013 ([id number]) OFFICE/OUTPATIENT VISIT EST Diagnosis: MALAISE AND FATIGUE[ICD9: 780.79] Diagnosis: MUSCLE WEAKNESS-GENERAL[ICD9: 728.87] Diagnosis: HEMIPLEGIANOS SIDE NOS[ICD9: 342.90] Diagnosis: 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] Cherri HOLGUIN [facility] CPT-4: 61036 04/25/2013 ([id number]) OFFICE/OUTPATIENT VISIT EST Diagnosis: MUSCLE WEAKNESS-GENERAL[ICD9: 728.87] Diagnosis: ABNORMALITY OF GAIT[ICD9: 781.2] Diagnosis: MALAISE AND FATIGUE[ICD9: 780.79] [facility] 52696 01/22/2013 OFFICE/OUTPATIENT VISIT EST Diagnosis: MALAISE AND FATIGUE[ICD9: 780.79] Diagnosis: MUSCLE WEAKNESS-GENERAL[ICD9: 728.87] Diagnosis: HEMIPLEGIANOS SIDE NOS[ICD9: 342.90] Diagnosis: ABNORMALITY OF GAIT[ICD9: 781.2] [facility] 60796 10/18/2012 OFFICE/OUTPATIENT VISIT EST Diagnosis: ABNORMALITY OF GAIT[ICD9: 781.2] Diagnosis: MALAISE AND FATIGUE[ICD9: 780.79] Diagnosis: MUSCLE WEAKNESS-GENERAL[ICD9: 728.87] [facility] 98806 09/25/2012 OFFICE/OUTPATIENT VISIT EST Diagnosis: CERVICALGIA[ICD9: 723.1] Diagnosis: ABNORMALITY OF GAIT[ICD9: 781.2] Diagnosis: MUSCLE WEAKNESS-GENERAL[ICD9: 728.87] [facility] 21822 08/24/2012 ([id number]) OFFICE/OUTPATIENT VISIT EST Diagnosis: URINARY TRACT INFECTION[ICD9: 599.0] Diagnosis: Altered mental state[ICD9: 780.97] Diagnosis: MUSCLE WEAKNESS-GENERAL[ICD9: 728.87] Diagnosis: HEMIPLEGIANOS SIDE NOS[ICD9: 342.90] Diagnosis: Cervicalgia[ICD9: 723.1] Cherri Pappasramuxuan CARIAS [facility] CPT-4: 77954 07/27/2012 OFFICE/OUTPATIENT VISIT EST Diagnosis: URINARY TRACT INFECTION[ICD9: 599.0] Diagnosis: Weakness generalized[ICD9: 780.79] Diagnosis: FEBRILE ILLNESS[ICD9: 780.60] Diagnosis: Vision disturbance[ICD9: 368.9] Tasneem HOLGUIN DO [facility] CPT-4: 96378 07/05/2012 OFFICE/OUTPATIENT VISIT EST Diagnosis: CONJUNCTIVITIS NOS[ICD9: 372.30] Diagnosis: MUSCLE WEAKNESS-GENERAL[ICD9: 728.87] Diagnosis: HEMIPLEGIANOS SIDE NOS[ICD9: 342.90] Diagnosis: ABNORMALITY OF GAIT[ICD9: 781.2] Cherri HOLGUIN [facility] [facility] CPT-4: 16237 05/29/2012 ([id number]) OFFICE/OUTPATIENT VISIT EST Diagnosis: MUSCLE WEAKNESS-GENERAL[ICD9: 728.87] Diagnosis: HEMIPLEGIANOS SIDE NOS[ICD9: 342.90] Diagnosis: ABNORMALITY OF GAIT[ICD9: 781.2] Diagnosis: DYSPEPSIA[ICD9: 536.8] Diagnosis: GERD[ICD9: 530.81] Cherri HOLGUIN [facility] CPT-4: 41821 02/02/2012 ([id number]) OFFICE/OUTPATIENT VISIT EST Diagnosis: MUSCLE WEAKNESS-GENERAL[ICD9: 728.87] Diagnosis: ABNORMALITY OF GAIT[ICD9: 781.2] Diagnosis: GERD[ICD9: 530.81] Cherri HOLGUIN [facility] [facility] CPT-4: 10752 11/03/2011 OFFICE/OUTPATIENT VISIT EST Diagnosis: MUSCLE WEAKNESS-GENERAL[ICD9: 728.87] Diagnosis: ABNORMALITY OF GAIT[ICD9: 781.2] Diagnosis: VOMITING ALONE[ICD9: 787.03] Diagnosis: GERD[ICD9: 530.81] Cherri HOLGUIN [facility] [facility] CPT-4: 52328 08/25/2011 OFFICE/OUTPATIENT VISIT EST Diagnosis: CONJUNCTIVITIS NOS[ICD9: 372.30] Cherri HOLGUIN [facility] [facility] CPT-4: 64607 05/27/2011 OFFICE/OUTPATIENT VISIT EST Diagnosis: MUSCLE WEAKNESS-GENERAL[ICD9: 728.87] Diagnosis: ABNORMALITY OF GAIT[ICD9: 781.2] Cherri HOLGUIN [facility] [facility] CPT-4: 08132 04/15/2011 OFFICE/OUTPATIENT VISIT EST Diagnosis: MALAISE AND FATIGUE[ICD9: 780.79] Diagnosis: MUSCLE WEAKNESS-GENERAL[ICD9: 728.87] Diagnosis: DEPRESSIVE DISORDER NEC[ICD9: 311] Diagnosis: ABNORMALITY OF GAIT[ICD9: 781.2] Cherri Mianrl CHERRI hTomas ORENDER DO [facility] CPT-4: 45080 03/22/2011 OFFICE/OUTPATIENT VISIT EST Cherri Thomas ORE NDER DO [facility] CPT- 4: 55266 02/22/2011 ([id number]) OFFICE/OUTPATIENT VISIT EST Cherri Oreramuxuan MELO SBelkis [facility]ENDER [facility] CPT-4: 19423 01/26/2011 ([id number]) OFFICE/OUTPATIENT VISIT, EST Cherricrystal DENNEY SBelkis ORENDER DO [facility] CPT-4: 22476 06/15/2010 ([id number]) OFFICE/OUTPATIENT VISIT, EST Cherri Mianrl DANIEL DENNEY S. ORENDER DO [facility] CPT-4: 45456 05/04/2010 ([id number]) OFFICE/OUTPATIENT VISIT, EST Cherri DENNEY SBelkis ORENDER DO [facility] CPT-4: 21693 03/03/2010 ([id number]) OFFICE/OUTPATIENT VISIT, EST Cherri DENNEY S. ORENDER DO [facility] CPT-4: 06390 10/20/2009 Plan of Care Planned Activity Notes Codes Status Date Visit Diagnosis Plan: Left arm cellulitis Discussion: Doxy.ak video visit done with nurse [place] Start Keflex Continue with clear tegaderm dressing and brian wrap and ice Notify if any worsening ICD-9 : 682.3 ICD-10 : L03.114 12/10/2019 Appointment: [facility] [phone] [facility] 12/10/2019 Visit Diagnosis Plan: Constipation Discussion: Doxy.me video with [place] nurse done Changing to bisacodyl suppository ICD-9 : 564.00 ICD-10 : K59.00 12/03/2019 Visit Diagnosis Plan: Sacral decubitus ulcer Discussio n: Wound Care seeing this week Follow Up: 2 months ICD-9 : 707.03 ICD-10 : L89.159 12/03/2019 Appointment: Cherri Holguintel: [address] [place], [place] [phone] [place] TELE[employer]IC[employer] 12/03/2019 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 FOLLOW UP 06/25/2019 [...] ICD-10 : R63.4 02/05/2019 Appointment: Cherri Holguintel: [address] [place], [place] [phone] [place] Confirmed with Nara Hankins 02/02 @ 11:07 am FOL LOW UP 02/05/2019 Appointment: Cherri Holguintel: [address] [place], [place] [phone] [place] NO SHOW 01/24/2019 Visit Diagnosis Plan: Attention and concentration defi cit Discussion: Trial of strattera 10mg daily for 1 week then 25mg daily Recheck 6 weeks Stimulants have caused weight loss in past as patient is also poor, picky eater so with the stimulants her appetite worsens even more ICD-9 : 799.51 ICD-10 : R41.840 12/13/2018 Appointment: Cherri Holguintel: [address] [place], [place] [phone] [place] confirmed with Morena FOLLOW UP 12/13/2018 [...] : R53.83 11/27/2018 Appointment: Cherri Holguin WPtel: [address] [place], [place] [phone] [place] confirmed with Karlee FOLLOW UP 11/27/2018 [...] ICD-10 : K59.01 09/25/2018 Appointment: Cherri Holguintel: [address] [place], [place] [phone] [place] FOLLOW UP 09/25/2018 Visit Diagnosis Plan: [...] : Z12.11 08/03/2018 Appointment: Maxine Glasgow [address] [facility] Annual Well Visit 08/03/2018 Visit Diagnosis Plan: [...] : K21.9 06/22/2018 Appointment: [facility] [facility] 06/22/2018 Visit Diagnosis Plan: Gastro-esophageal reflux disease without esophagitis Discussion: Continue aciphex at 20m po daily Recheck 2mos ICD-9 : 530.81 ICD-10 : K21.9 04/06/2018 Appointment: Cherri Holguintel: [address] [place], [place] [phone] FOLLOW UP 04/06/2018 Patient Education: Patient Medication Summary Completed 04/06/2018 Appointment: Cherri Holguintel: [address] [facility] [place] RESCHEDULED 03/07/2018 Visit Diagnosis Plan: Gastro-esophageal reflux disease without esophagitis Discussion: patient had aciphex and prevacid on med list. order written out on patient's list to only give the aciphex as prescribed and not both. follow up in one month to assess medication efficacy and constipation. ICD-9 : 530.81 ICD-10 : K21.9 03/06/2018 Appointment: Maxine Glasgow [address] [place], [place] [phone] FOLLOW UP 03/06/2018 Patient Education: Patient Medication [...] : F51.01 02/15/2018 Appointment: Cherri Holguin WPtel: [address] [place], [place] [phone] FOLLOW UP 02/15/2018 Patient Education: Patient Medication Summary Completed 02/15/2018 Appointment: Cherri Holguin WPtel: [facility] [facility], [facility] [...] : M62.81 12/12/2017 Appointment: Cherri Holguin WPtel: [address] [place] [address] FOLLOW UP 12/12/2017 Patient Education: Patient Medication Summary Completed 12/12/2017 Visit Diagnosis Plan: Nondisplaced fract ure of medial malleolus of left tibia, subsequent encounter for closed fracture with delayed healing Discussion: Add miacalcin nasal spray for next 2mos Fwup with ortho Follow Up: 2 months ICD-9 : V54.16 ICD-10 : S82.55XG 10/10/2017 Appointment: Cherri Holguin WPtel: [address] [place] [address] FOLLOW UP 10/10/2017 Patient Education: Patient Medication Summary Completed 10/10/2017 Appointment: Cherri Holguin WPtel: [address] [place] [address] [place] RESCHEDULED 10/04/2017 Referral: Alvarado Mercado WPtel: [address] [address] [place] Referral Initiated 10/04/2017 Visit Diagnosis Plan: Acute upper respiratory infectio n, unspecified Discussion: continue with chika ragland as needed. increase fluids. notify if worsening symptoms including shortness of breath or fever. call or rtc later this week if no improvement. instructed patient to perform deep breathing exercises at home. ICD-9 : 465.9 ICD-10 : J06.9 09/19/2017 Appointment: Maxine Glasgow [address] [place] [address] ACUTE ILLNESS 09/19/2017 Patient Education: Patient Medication Summary Completed 09/19/2017 Appointment: Cherri Holguin WPtel: [address] [place] [address] [place] CANCELED 08/16/2017 Visit Diagnosis Plan: Muscle [...] : L98.8 08/04/2017 Appointment: Cherri Holguin WPtel: [address] [place] [id number] FOLLOW UP 08/04/2017 Patient Education: Patient Medication [...] : Z85.841 07/12/2017 Appointment: Cherri Holguin WPtel: [address] [place], [place] [phone] [facility] Follow Up 07/12/2017 Patient Education: [...] : B35.6 05/30/2017 Appointment: Cherri Holguin WPtel: [address] [place], [place] [phone] [place] FOLLOW UP 05/30/2017 Patient Education: Patient Medication Summary Completed 05/30/2017 Visit Diagnosis Plan: Cellulitis of abdominal wall Dis cussion: Finish keflex Referral to wound care ICD-9 : 682.2 ICD-10 : L03.311 05/02/2017 Appointment: Cherri Holguin WPtel: [address] [place], [place] [phone] [place] FOLLOW UP 05/02/2017 Patient Education: Patient Medication Summary Completed 05/02/2017 Referral: Remigio Valdes WPtel: [address] [place], [place] [phone] [place] Referral Initiated 04/05/2017 Visit Diagnosis Plan: Cellulitis of chest wall Discuss ion: Keflex x1 week Continue daily dressing changes ICD-9 : 682.2 ICD-10 : L03.313 02/28/2017 Visit Diagnosis Plan: Muscle weakness (generalized) Di scussion: Stable Follow Up: 2 months ICD-9 : 728.87 ICD-10 : M62.81 02/28/2017 Appointment: Cherri Holguin WPtel: [address] [place], [place] [phone] [place] 02/24 confirmed~sl FOLLOW UP 02/28/2017 Patient Education: Patient Medication Summary Completed 02/28/2017 Visit Diagnosis Plan: Cellulitis of abdominal wall Dis cussion: Healing and improving so will finish all of clindamycin and monitor wounds for any worsening or recurrence ICD-9 : 682.2 ICD-10 : L03.311 12/06/2016 Appointment: Cherri Holguin WPtel: [address] [place], [place] [phone] [place] WORK IN 12/06/2016 Patient Education: Patient Medication Summary Completed 12/06/2016 Visit Diagnosis Plan: Cutaneous abscess of abdominal w all Discussion: Continue clindamycin and dressing changes To ER this weekend if worsens Fwup with me in 4 days for recheck ICD-9 : 682.2 ICD-10 : L02.211 12/02/2016 Appointment: Cherri Holguin WPtel: [address] [place] [id number] [place] FOLLOW UP 12/02/2016 Patient Education: Patient [...] : L02.211 12/01/2016 Appointment: Cherri Holguin WPtel: [address] [place] [phone] WORK IN 12/01/2016 Patient Education: Patient Medication Summary Completed 12/01/2016 Visit Diagnosis Plan: Cutaneous abscess of abdominal w all Discussion: Copious amounts of pus expressed until bloody discharge Start clindamycin Recheck tomorrow Erythema outline marked Follow Up: 1 days ICD-9 : 682.2 ICD-10 : L02.211 11/30/2016 Appointment: Cherri Holguin WPtel: [address] [place] [phone] 11/29 confirmed`sl FOLLOW UP 11/30/2016 Patient Education: Patient Medication Summary Completed 11/30/2016 Appointment: Cherri Holguintel: [address] [place] [id number] 11/10 scalp looks ok will discuss at [...] : K59.01 10/26/2016 Appointment: Cherri Holguin WPtel: [address] [place], [place] [phone] ACUTE ILLNESS 10/26/2016 Patient Education: Patient Medication Summary Completed 10/26/2016 Patient Education: Patient Medication Summary Completed 10/21/2016 Care Plan: CT HEAD/BRAIN W/O DYE LOINC : 39221-7 Pending 10/21/2016 Visit Diagnosis Plan: Other seborrheic dermatitis Disc ussion: Topical ketoconazole shampoo alternating with selsun blue Follow Up: 2 months ICD-9 : 706.3 ICD-10 : L21.8 09/13/2016 Appointment: Cherri Holguin WPtel: [address] [place], [place] [phone] 09/09 confirm`sl FOLLOW UP 09/13/2016 Patient Education: Patient Medication Summary Completed 09/13/2016 Appointment: Cherri Holguin WPtel: [address] [place], [place] [phone] [place] CANCELED 07/13/2016 Visit Plan: Low-dose CT scan-45 PPD of C hest Check hemoccult Discussed updated CT of head to recheck meningioma Zostavax vaccine Will obtain last colonoscopy results Update lab 07/12/2016 Appointment: Cherri Holguin WPtel: [address] [place], [place] [phone] [place] 07/08 confirmed~sl Annual Well Visit 07/12/2016 Patient Education: Patient Medication Summary Completed 07/12/2016 Visit Plan: Gets teeth extracted next mo nth then getting fitted for dentures so some of poor appetite is due to inability to eat certain things Continue current meds Defers flu shot 05/11/2016 Appointment: Cherri Holguin WPtel: [address] [place], [place] [phone] 05/10 confirmed~sl FOLLOW UP 05/11/2016 Patient Education: Patient Medication Summary Completed 05/11/2016 Visit Plan: Discussed nutrition and poss ible shakes as supplement until gets teeth completely pulled and fitted for full dentures Continue current meds Did have right scalp lesion removed 12/23/2015 Appointment: Cherri Holguin WPtel: [address] [place], [place] [phone] 12/21 confirmed-sp FOLLOW UP 12/23/2015 Patient Education: Patient Medication Summary Completed 12/23/2015 Referral: Tabitha Messer WPtel: [facility] [address] Spoke with Kayli at [facility] and gave her appt information Initiated 10/07/2015 Visit Plan: Start PT for ROM of neck Dis cussed milkshake in place of meal if does not eat at least 20% of meal--patient states she wants to lose weight and does not like the food served there See dermatology for removal of scalp lesion 09/23/2015 Appointment: Cherri Holguin WPtel: [address] [place], [place] [phone] 09/22/15 appt confirmed with Amber at [facility] FOLLOW UP 09/23/2015 Patient Education: Patient Medication Summary Completed 09/23/2015 Visit Plan: Stop miralax and senokot-s S tart dulcolax daily Patient asking for PT and OT again but admits they don't really help/she doesn't gain much from them 04/15/2015 Appointment: Cherri Holguin WPtel: [address] [place], [place] [phone] 04/11 confirmed with [facility] cn FOLLOW UP 04/15/2015 Patient Education: Patient Medication Summary Completed 04/15/2015 Visit Plan: Check CBC, CMP, TSH, free T4 , Vit D Continue current meds 01/14/2015 Appointment: Cherri Holguin WPtel: [address] [place] [phone] 01/14/2015 Patient Education: Patient Medication Summary Completed 01/14/2015 Visit Plan: Change to Senokot-S 2 po BID Add miralax Has been released by burn center for now 10/29/2014 Appointment: Cherri Holguin WPtel: [address] [place], [place] [phone] 10/28 with Madiha FOLLOW UP 10/29/2014 Patient Education: Patient Medication Summary Completed 10/29/2014 Visit Plan: Patient is wheelchair bound now Continue current meds Patient following with [facility] end of 08/20/2014 Appointment: Cherri Holguin WPtel: [address] [place] [address] MLP rescheduled due to cold weather 08/19 message with Madiha at [facility] FOLLOW U P 08/20/2014 Patient Education: Patient Medication Summary Completed 08/20/2014 Visit Plan: Patient is eating better--10 0% of meals and wants feeding tube out but waiting on swallow eval Following with burn center and doing dressing changes to left chest every 3 days Refuses flu and pneumonia shots Fwup 4mos if goes to [place] or 1mo if stays in [place] 06/04/2014 Appointment: Cherri Holguin WPtel: [address] [place], [place] [phone] FOLLOW UP 06/04/2014 Patient Education: Patient Medication Summary Completed 06/04/2014 Visit Plan: Patient sees burn center nex t week Explained importance of taking nutren routinely as needs nutrition Increase prilosec to 20mg po BID Smoking Cessation 05/06/2014 Appointment: Cherri Holguin WPtel: [address] [place], [place] [phone] 05/03 vm on patient phone 05/03 message with Maria L at [facility] Follow Up 05/06/2014 Patient Education: Patient Medication Summary Completed 05/06/2014 Visit Plan: Finish abx Brian wrap to left LE and elevate 08/07/2013 Appointment: Cher[facility] [address] [facility] [facility] Follow Up 07/10 Patient Education: Patient Medication Summary Completed 08/07/2013 Appointment: Cherri Holguin WPtel: [address] [place], [place] [id number] 07/18 appointment confirmed with patient 07/19 NO SHOW FOLLOW UP 07/19/2013 Visit Plan: Continue current meds Contin ue PT 05/23/2013 Appointment: Cherri Holguin WPtel: [address] [place], [place] [phone] 05/22 vm...appt confirmed FOLLOW UP 2012 Patient Education: Patient Medication Summary Completed 05/23/2013 Visit Plan: Long discussion about need f or 24hr care Pt wants to go home 04/25/2013 Appointment: Cherri Holguin WPtel: [address] [place] [place], [place] [id number] Appt confirmed with Augusto at [facility] Follow Up 04/25/2013 Patient Education: Patient Medication Summary Completed 04/25/2013 Appointment: Cherri Holguin WPtel: [address] [place], [place] [phone] 04/20 message left at [facility] FOLLOW UP 04/23/2013 Visit Plan: Continue current meds 01/22/2013 Appointment: Cherri Holguin WPtel: [address] [place], [place] [phone] 01/22 vm left FOLLOW UP 01/22/2013 Patient Education: Patient Medication Summary Completed 01/22/2013 Appointment: Cherri Holguin WPtel: [address] [place], [place] [phone] 11/20 left message...patient called in a t 10:00am and said she was unable to get to her car. She rescheduled for 11/27 11am 11/24 left message 11/29 called to confirm, patient cancell ed due to no ride from care van. patient will call [facility] and see when they can bring her and then call us to schedule FOLLOW UP 11/30/2012 Visit Plan: Going to go home at the end of week with caregiver Continue current meds 10/18/2012 Appointment: Cherri Holguintel: [address] [place], [place] [phone] 10/17 appt confirmed with Reyna FOLLOW UP 10/18/2012 Patient Education: Patient Medication Summary Completed 10/18/2012 Visit Plan: Continue and finish PT Sultana bolton current meds Fwup October 19 or --pts 100 days is up October 21 09/25/2012 Appointment: Cherri Holguintel: [address] [place], [place] [phone] [place] worked in since [facility]p just droppe d her off. She was on shedule at one point but showed it was cancelled WORK IN Appointment: Cherri Holguin WPtel: [address] [place], [place] [phone] 07/17 Cancelled 09/25 Appt - Patient has appointments on 07/08 & 07/27 FOLLOW UP 09/25/2012 Patient Education: Patient Medication Summary Completed 09/25/2012 Visit Plan: Continue current meds Pt wan ts to go home when her 100 days are up 08/24/2012 Appointment: Cherri Holguintel: [address] [place], [place] [phone] [place] FOLLOW UP 08/24/2012 Patient Education: Patient Medication Summary Completed 08/24/2012 Visit Plan: DC tramadol Repeat UA and ch edu UDS Start PT for neck Discussed neurology eval, but pt has been to several in past and even [facility] 07/27/2012 Appointment: Cherri Holguintel: [address] [place], [place] [phone] [place] FOLLOW UP 07/27/2012 Patient Education: Patient Medication Summary Completed 07/27/2012 Appointment: Cherri Holguin WPtel: [address] [place] [address] 07/17 - left message..07/17 left message with Antonella at [facility] pt has appt tomorrow and on I think the 07/18 appt was scheduled prior to hospitalization. 07/18 no showed. just entered [facility] so no show is forgiven FOLLOW UP 07/18/2012 Appointment: Tasneem Esquivel WPtel: [address] [place] [address] ACUTE ILLNESS 07/05/2012 Patient Education: Patient Medication Summary Completed 07/05/2012 Appointment: Cherri Holguin WPtel: [address] [place] [address] FOLLOW UP 05/29/2012 Patient Education: Patient Medication Summary Completed 05/29/2012 Appointment: Cherri Holguin WPtel: [address] [place] [address] FOLLOW UP 02/02/2012 Patient Education: Patient Medication Summary Completed 02/02/2012 Visit Plan: Continue current meds Check CBC, CMP, TSH, Free T4, B12 11/03/2011 Appointment: Cherri Holguin WPtel: [address] [place] [address] FOLLOW UP 11/03/2011 Patient Education: Patient Medication Summary Completed 11/03/2011 Visit Plan: Adderall refilled Continue c urrent meds 08/25/2011 Appointment: Cherri Holguin WPtel: [address] [place] [address] FOLLOW UP 08/25/2011 Patient Education: Patient Medication Summary Completed 08/25/2011 Appointment: Cherri Holguin WPtel: [address] [place] [address] Appointment was confirmed. FOLLOW UP 08/16 Visit Plan: Esther is eye doctor. Will u se eye drop.(Cipro as she claims allergy (nausea). Pt. is accompanied by "grounds keepers" from [facility]. Written instructions given for pt. to be seen in follow up by Esther. Written RX also given to pt. for cipro eye drops. Pt. is instructed that the RX has been electronically sent to [facility]. 05/27/2011 Appointment: Tasneem Esquivel WPtel: [address] [place] [address] ACUTE ILLNESS 05/27/2011 Patient Education: Patient Medication Summary Completed 05/27/2011 Visit Plan: Continue increased dose of A dderall 04/15/2011 Appointment: Cherri Holguin WPtel: [address] [place] [address] FOLLOW UP 04/15/2011 Patient Education: Patient Medication Summary Completed 04/15/2011 Appointment: Cherri Holguin WPtel: [address] [place] [address] [place] FOLLOW UP 03/22/2011 Patient Education: Patient Medication Summary Completed 03/22/2011 Appointment: Cherri Holguin WPtel: [address] [place] [address] FOLLOW UP 02/25/2011 Visit Plan: Trial of Wellbutrin XL 150mg q AM 02/22/2011 Appointment: Cherri Holguin WPtel: [address] [place], [place] [phone] [place] FOLLOW UP 02/22/2011 Patient Education: Patient Medication Summary Completed 02/22/2011 Visit Plan: Continue PT Add Cymbalta 30m g daily 01/26/2011 Appointment: Cherri Holguin WPtel: [address] [place] [address] [place] FOLLOW UP 01/26/2011 Patient Education: Patient Medication Summary Completed 01/26/2011 Visit Plan: Cont current meds and PT Exrenetta m for Power chair completed Adderall rx refilled 06/15/2010 Appointment: Cherri Holguin WPtel: [address] [place] [address] ESTABLISHED PATIENT 06/15/2010 Patient Education: Patient Medication Summary Completed 06/15/2010 Visit Plan: To rehab today for PT/OT--I will follow on rehab unit 05/04/2010 Appointment: Cherri Holguin WPtel: [phone] [facility] FOLLOW UP 05/04/2010 Patient Education: Patient Medication Summary Completed 05/04/2010 Visit Plan: Cont PT Cont Forteo Long dis cussion about living home--will discuss with PT when finishes this session 03/03/2010 Appointment: Cherri Holguin WPtel: [phone] [facility] FOLLOW UP 03/03/2010 Patient Education: Patient Medication Summary Completed 03/03/2010 Visit Plan: EGD by Dr. Dang Pt agrees to restart Forteo 10/20/2009 Appointment: Cherri Holguni WPtel: [phone] [facility] [place] FOLLOW UP 10/20/2009 Patient Education: Patient Medication Summary Completed 10/20/2009 Referral: Antonio Gandhi WPtel: [phone] [id number] [place] Referral Initiated Instructions Comment . Low-dose [...] been to several in past and even [facility] . Continue current meds Check CBC, CMP, TSH, Free T4, B12 . Adderall refilled Continue current meds . 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 Will use eye bj p.(Cipro as she claims allergy (nausea). Pt. is accompanied by "grounds keepers" from [facility]. Written instructions given for pt. [...]
--- OUTSIDE RECORDS SUMMARY | 2020-03-05 20:47 | XMS REPORT | CCD ---
Author Author Rosario Holguin D.O. Organization CHERRI HOLGUIN DO [facility] Address [address] [place] [address] Phone Care Team Providers Care Housekeeping Attendant Name Role Phone Cherri Holguin D.O., PP Unavailable CCM Unavailable Summary Purpose Interface Exchange Insurance Providers Payer name Policy type / Coverage type Covered green party ID Effective Begin Date Effective End Date WPS MEDICARE PART [place] Medicare Part B [id number] Unknown AARP Medicare Part B [id number] Unknown Family History Family History data not found Social History Social History Element Codes Description Effective Dates Tobacco history SNOMED CT: 2177071 Former smoker 04/15/2015 Allergies, Adverse Reactions, Alerts [...] Instructions Tessalon Perles 100 mg capsule RxNorm: 921217 1 Capsule(s) Oral Q8H as needed 12/03/2019 No Stop Date Active glycerin (adult) rectal suppository RxNorm: 1 Cardenas ppository Rectal and Tuesday12/03/2019 No Stop Date Active cyanocobalamin (vit B-12) 1,000 mcg/mL injection solution Rx Norm: 929272 1 Milliliter(s) Intramuscular every 2 weeks 06/26/2019 09/24/2019 Inacti ve cyanocobalamin (vit B-12) 1,000 mcg/mL injection solution Rx Norm: 167394 1 Milliliter(s) Intramuscular every 2 weeks 06/26/2019 06/25/2019 Inacti ve bisacodyl 10 mg rectal suppository RxNorm: 476235 1 Sup pository Rectal QD as needed 05/10/2019 No Stop Date Active glycerin (adult) rectal suppository RxNorm: 4324472 1 Suppositor y RTL BIW 07/25/2018 12/02/2019 Inactive rabeprazole 20 mg tablet,delayed release RxNorm: 162825 1 Table t(s) PO QD 03/01/2018 05/29/2018 Inactive replaces lansoprazol e Adderall XR 10 mg capsule,extended release RxNorm: 363319 1 Cap teresa(s) PO QAM 10/20/2017 12/19/2017 Inactive Tessalon Perles 100 mg capsule RxNorm: 342523 1 Capsule (s) PO TID as needed for cough 09/16/2017 09/30/2019 Inactive Cymbalta 30 mg capsule,delayed release RxNorm: 065488 1 Capsule (s) PO QD 08/17/2017 12/02/2019 Inactive nystatin 100,000 unit/gram topical powder RxNorm: 993773 1 Appl ication TOP BID 08/16/2017 02/14/2018 Inactive Adderall XR 10 mg capsule,extended release RxNorm: 843018 1 Cap teresa(s) PO QAM 08/11/2017 09/09/2017 Inactive Adderall XR 10 mg capsule,extended release RxNorm: 361727 1 Cap teresa(s) PO QAM 08/04/2017 08/03/2017 Inactive Adderall XR 10 mg capsule,extended release RxNorm: 937015 1 Cap teresa(s) PO QAM 08/04/2017 08/10/2017 Inactive Bactrim DS 800 mg-160 mg tablet RxNorm: 276771 1 Tablet(s) PO BID 1 08/28/2016 07/07/2017 Inactive clindamycin 300 mg capsule RxNorm: 252625 2 Capsule(s) PO TID doses for today and tomorrow 11/30/2016 05/01/2017 Inactive ketoconazole 2 % shampoo RxNorm: 118949 1 Application TOP twice a week 09/14/2016 05/01/2017 Inactive hydrocodone 5 mg-acetaminophen 325 mg tablet RxNorm: 491487 1 Tablet(s) PO Q6H as needed for pain 07/12/2016 05/01/2017 Inactive Cipro 250 mg tablet RxNorm: 765321 1 Tablet(s) PO BID 09/29/201509/09 Inactive cefuroxime axetil 250 mg tablet RxNorm: 638593 1 Tablet(s) PO BID 0 09/10/2015 09/16/2015 Inactive Micro-K 8 mEq capsule,extended release RxNorm: 781497 1 Capsule (s) PO QD 08/20/2015 08/16/2017 Inactive Micro-K 8 mEq capsule,extended release RxNorm: 237094 1 Capsule (s) PO QD 08/20/2015 08/19/2015 Inactive Adderall XR 20 mg capsule,extended release RxNorm: 545866 1 Cap teresa(s) PO QAM 04/30/2015 02/11/2016 Inactive hydroxyzine HCl 25 mg tablet RxNorm: 540962 1 Tablet(s) PO Q6H as needed for itching/hives 04/02/2015 09/12/2016 Inactive Miralax 17 gram oral powder packet RxNorm: 017631 17 Gr am(s) PO BID for constipation 02/26/2015 02/11/2016 Inactive Adderall XR 20 mg capsule,extended release RxNorm: 980366 1 Cap teresa(s) PO QAM 07/09/2014 08/07/2014 Inactive Adderall 20 mg tablet RxNorm: 801039 2 Tablet(s) PO QD 02/04/201408/2013 Inactive [AttnRPh: Saving apply/adjudicate RxGRP: SG20 RxBIN:[id number] RxPCN: ID#:[id number]] triamcinolone acetonide 0.1 % topical cream RxNorm: 5761749 1 Application TOP BID to affected area as needed 12/12/2013 01/13/2015 Inactive [ AttnRPh: Saving apply/adjudicate RxGRP:SG20 RxBIN:[id number] RxPCN: ID#:[id number]] Adderall 20 mg tablet RxNorm: 435989 2 Tablet(s) PO QD 12/04/2013 Inactive [AttnRPh: Saving apply/adjudicate RxGRP: SG20 RxBIN:[id number] RxPCN: ID#:[id number]] Adderall 20 mg tablet RxNorm: 452080 2 Tablet(s) PO QD 12/03/2013 Inactive [AttnRPh: Saving apply/adjudicate RxGRP: SG20 RxBIN:[id number] RxPCN: ID#:[id number]] Adderall 20 mg tablet RxNorm: 504448 2 Tablet(s) PO QD 11/02/2013 Inactive Adderall 20 mg tablet RxNorm: 659716 2 Tablet(s) PO QD 10/01/2013 Inactive meloxicam 7.5 mg tablet RxNorm: 067828 1 Tablet(s) PO QD 09/24/2013 0 08/19/2014 Inactive lisinopril 20 mg tablet RxNorm: 855554 1 Tablet(s) PO QD 09/24/2013 0 08/19/2014 Inactive Protonix 40 mg tablet,delayed release RxNorm: 091818 1 Tablet(s ) PO QD 09/24/2013 08/19/2014 Inactive Adderall 20 mg tablet RxNorm: 122381 2 Tablet(s) PO QD 08/29/2013 Inactive Adderall 20 mg tablet RxNorm: 944235 2 Tablet(s) PO QD 08/02/2013 Inactive hydroxyzine HCl 25 mg tablet RxNorm: 024871 1 Tablet(s) PO Q6H as needed 06/29/2013 08/19/2014 Inactive Adderall 20 mg tablet RxNorm: 447142 2 Tablet(s) PO QD 05/22/2013 Inactive Protonix 40 mg tablet,delayed release RxNorm: 541927 1 Tablet(s ) PO QD 05/15/2013 09/11/2013 Inactive meloxicam 7.5 mg tablet RxNorm: 476741 1 Tablet(s) PO QD 05/15/2013 0 09/11/2013 Inactive lisinopril 20 mg tablet RxNorm: 661237 1 Tablet(s) PO QD 05/15/2013 0 09/11/2013 Inactive Adderall 20 mg tablet RxNorm: 480961 2 Tablet(s) PO QD 04/02/2013 No Stop Date Active Adderall 20 mg tablet RxNorm: 723962 2 Tablet(s) PO QD 02/27/2013 No Stop Date Active Adderall 20 mg tablet RxNorm: 714052 2 Tablet(s) PO QD 01/22/2013 No Stop Date Active Adderall 20 mg tablet RxNorm: 407474 2 Tablet(s) PO QD 12/28/2012 No Stop Date Active Adderall 20 mg tablet RxNorm: 772339 2 Tablet(s) PO QD 12/01/2012 No Stop Date Active Adderall 20 mg tablet RxNorm: 403998 2 Tablet(s) PO QD 11/01/2012 No Stop Date Active K-Dur 20 mEq tablet,extended release RxNorm: 015816 1 Tablet(s) PO QD 10/19/2012 11/26/2018 Inactive meloxicam 7.5 mg tablet RxNorm: 656099 1 Tablet(s) PO QD 10/19/2012 0 04/16/2013 Inactive Protonix 40 mg tablet,delayed release RxNorm: 216894 1 Tablet(s ) PO QD 10/19/2012 04/16/2013 Inactive lisinopril 20 mg tablet RxNorm: 041469 1 Tablet(s) PO QD 10/19/2012 0 04/16/2013 Inactive Cipro 500 mg tablet RxNorm: 938180 1 Tablet(s) PO BID 07/05/201211/2011 Inactive Adderall XR 20 mg capsule,extended release RxNorm: 033768 2 Cap teresa(s) PO QAM 06/12/2012 07/26/2012 Inactive Adderall XR 20 mg capsule,extended release RxNorm: 960206 2 Cap teresa(s) PO QAM 05/16/2012 06/11/2012 Inactive Adderall XR 20 mg capsule,extended release RxNorm: 766661 2 Cap teresa(s) PO QAM 04/21/2012 05/15/2012 Inactive Adderall XR 20 mg capsule,extended release RxNorm: 068874 2 Cap teresa(s) PO QAM 02/16/2012 03/16/2012 Inactive Enablex 15 mg 24 hr Tab RxNorm: 666622 1 Tablet(s) PO QPM repla mady Vesicare 02/07/2012 05/28/2012 Inactive Enablex 15 mg 24 hr Tab RxNorm: 997871 1 Tablet(s) PO QPM repla mady Vesicare 02/07/2012 08/04/2012 Inactive Protonix 40 mg Tab RxNorm: 789713 1 Tablet(s) PO QD 02/07/20122011 Inactive Protonix 40 mg Tab RxNorm: 898587 1 Tablet(s) PO QD 02/02/20122011 Inactive Enablex 15 mg 24 hr Tab RxNorm: 718593 1 Tablet(s) PO QPM repla mady Vesicare 02/02/2012 02/06/2012 Inactive Adderall XR 20 mg 24 hr Cap RxNorm: 211365 2 Capsule(s) PO QAM 01/0602/15/2012 Inactive Adderall XR 20 mg 24 hr Cap RxNorm: 608028 2 Capsule(s) PO QAM 12/0601/15/2012 Inactive Adderall XR 20 mg 24 hr Cap RxNorm: 947263 2 Capsule(s) PO QAM 11/0612/16/2011 Inactive Adderall XR 20 mg 24 hr Cap RxNorm: 720529 2 Capsule(s) PO QAM 10/0611/17/2011 Inactive Adderall XR 20 mg 24 hr Cap RxNorm: 979404 2 Capsule(s) PO QAM 09/0910/24/2011 Inactive Prevacid 30 mg Cap RxNorm: 066939 1 Capsule(s) PO QD 07/30/201109/27 Inactive Adderall XR 20 mg 24 hr Cap RxNorm: 757644 2 Capsule(s) PO QAM 07/0908/28/2011 Inactive Adderall XR 20 mg 24 hr Cap RxNorm: 233729 2 Capsule(s) PO QAM 06/0807/21/2011 Inactive ciprofloxacin 0.3 % Eye Drops RxNorm: 545532 2 Drop(s) OPH Q2H 05/0905/31/2011 Inactive Adderall XR 20 mg 24 hr Cap RxNorm: 830217 2 Capsule(s) PO QAM 05/08 No Stop Date Active Wellbutrin XL 150 mg 24 hr Tab RxNorm: 113554 1 Tablet(s) PO QAM 04/14/2011 Inactive Vesicare 10 mg Tab RxNorm: 401822 1 Tablet(s) PO QD 12/24/20102011 Inactive Vesicare 10 mg Tab RxNorm: 411730 1 Tablet(s) PO QD 12/21/20102018 Inactive Adderall XR 30 mg 24 hr Cap RxNorm: 445558 1 Capsule(s) PO QD 11/1712/16/2010 Inactive Vesicare 10 mg Tab RxNorm: 182093 1 Tablet(s) PO QD 09/21/20102010 Inactive Adderall XR 30 mg 24 hr Cap RxNorm: 790284 1 Capsule(s) PO 09/17/19 11 10/16/2010 Inactive Adderall XR 30 mg 24 hr Cap RxNorm: 378023 1 Capsule(s) PO QAM 07/0911/26/2018 Inactive Adderall XR 30 mg 24 hr Cap RxNorm: 581920 1 Capsule(s) PO QAM 07/0908/03/2010 Inactive Adderall XR 20 mg 24 hr Cap RxNorm: 694980 2 Capsule(s) PO QD 01/2602/02/2010 Inactive Adderall XR 20 mg 24 hr Cap RxNorm: 307132 1 Capsule(s) PO QD 01/2605/03/2010 Inactive Forteo 20 mcg/dose (600 mcg/2.4 mL) Sub-Q Pen Injector RxNorm: 1 385957 SQ 12/30/2009 01/25/2011 Inactive hyoscyamine 0.125 mg sublingual tablet RxNorm: 4782689 1 Tablet(s) SL Q4H as needed for excessive secretions No Start Date Active Senokot-S 8.6 mg-50 mg tablet RxNorm: 1235340 2 Tablet(s) PO BID No Start Date Active rabeprazole 20 mg tablet,delayed release RxNorm: 214583 1 Table t(s) PO QD No Start Date Active Micro-K 10 10 mEq capsule,extended release RxNorm: 179010 1 Cap teresa(s) PO QD No Start Date Active docusate sodium 100 mg tablet RxNorm: 7689380 1 Tablet(s) PO Q8H as needed No Start Date Active ondansetron HCl 4 mg tablet RxNorm: 762987 1 Tablet(s) PO Q4H a s needed No Start Date Active Vitamin D3 5,000 unit tablet RxNorm: 383670 1 Tablet(s) PO QD No Star t Date Active bisacodyl 5 mg tablet RxNorm: 657577 1 Tablet(s) PO BID as needed N o Start Date Active aspirin 81 mg tablet RxNorm: 436448 1 Tablet(s) PO QD No Start Date Active Multivitamin And Mineral oral RxNorm: oral No Start Date Active Benadryl 1 % topical cream RxNorm: 7361956 TOP as needed for hiv es No Start Date Active K-Dur 20 mEq tablet,extended release RxNorm: 776840 1 Tablet(s) PO QD No Start Date 08/19/2014 Inactive Colace 100 mg capsule RxNorm: 7587410 1 Capsule(s) PO BID No Start Date 01/19/2017 Inactive ketoconazole 2 % shampoo RxNorm: 798427 1 Application TOP twice a week No Start Date 09/13/2016 Inactive ibuprofen 600 mg tablet RxNorm: 986922 1 Tablet(s) PO Q6H as ne eded No Start Date 06/21/2018 Inactive Zaditor 0.025 % Eye Drops RxNorm: 609235 1 Drop(s) OPH BID No Start Date 05/28/2012 Inactive senna 8.6 mg tablet RxNorm: 039498 2 Tablet(s) PO BID No Start Date 0 02/11/2016 Inactive senna 8.6 mg tablet RxNorm: 961388 1 Tablet(s) PO BID No Start Date 0 02/11/2016 Inactive Amoxil 500 mg capsule RxNorm: 507559 1 Capsule(s) PO BID No Start D ate 05/01/2017 Inactive lisinopril 20 mg tablet RxNorm: 947512 1 Tablet(s) PO QD No Start D ate 10/18/2012 Inactive Prevacid 30 mg Capsule, delayed release RxNorm: 404810 1 Capsul e(s) PO QD No Start Date 02/01/2012 Inactive Senokot-S 8.6 mg-50 mg Tab RxNorm: 4722987 2 Tablet(s) PO QD PRN No Start Date 03/02/2010 Inactive Cymbalta 30 mg capsule,delayed release RxNorm: 723992 1 Capsule (s) PO QD No Start Date 08/16/2017 Inactive ketoconazole 2 % topical cream RxNorm: 082567 1 Applica tion TOP BID to scaly eyebrows No Start Date 05/01/2017 Inactive lorazepam 0.5 mg tablet RxNorm: 102710 1 Tablet(s) PO Q4H as ne eded No Start Date 06/21/2018 Inactive Vitamin C 500 mg tablet RxNorm: 885981 1 Tablet(s) PO QD No Start D ate 01/21/2013 Inactive albuterol sulfate 2.5 mg/3 mL (0.083 %) Neb Solution RxNorm: 125885 Milliliter(s) INH 1 vial in nebulizer every 4 hours as needed No Start Date 01/21/2013 Inactive Adderall XR 20 mg 24 hr Cap RxNorm: 274973 1 Capsule(s) PO QAM No S tart Date 01/25/2011 Inactive Xanax 0.25 mg Tab RxNorm: 719350 1/2 Tablet(s) PO BID PRN No Start Date 03/02/2010 Inactive Tylenol Extra Strength 500 mg Tab RxNorm: 152699 2 Tablet(s) PO PRN No Start Date 08/24/2011 Inactive Adderall 20 mg tablet RxNorm: 109866 2 Tablet(s) PO QD No Start Date 10/31/2012 Inactive bisacodyl 5 mg tablet,delayed release RxNorm: 692393 1 Tablet(s) PO Q12H as needed No Start Date 02/04/2019 Inactive Tessalon Perles 100 mg capsule RxNorm: 847421 1 Capsule (s) PO TID as needed for cough No Start Date 09/15/2017 Inactive Vitamin D3 1,000 unit tablet RxNorm: 035486 3 Tablet(s) PO QD No St art Date 02/22/2017 Inactive meloxicam 7.5 mg tablet RxNorm: 923048 1 Tablet(s) PO QD No Start D ate 10/18/2012 Inactive Bactroban 2 % topical ointment RxNorm: 943788 1 Application TOP QD No Start Date 12/11/2017 Inactive Toviaz 8 mg 24 hr Tab RxNorm: 809257 1 Tablet(s) PO QD No Start Date 09/21/2010 Inactive Prevacid 15 mg capsule,delayed release RxNorm: 159788 Capsule(s ) PO QD No Start Date 02/28/2018 Inactive K-Dur 20 mEq tablet,extended release RxNorm: 4452485 1 Tablet(s) PO QD No Start Date 10/18/2012 Inactive Adderall XR 20 mg 24 hr Cap RxNorm: 587305 2 Capsule(s) PO QAM No S tart Date 05/24/2011 Inactive Calcium with Vitamin D 600 mg-400 unit Tab RxNorm: 499916 1 Tab let(s) PO QD No Start Date 08/24/2011 Inactive Miralax 17 gram oral powder packet RxNorm: 492650 17 Gram(s) PO BID as needed No Start Date 11/26/2018 Inactive Zestril 10 mg Tab RxNorm: 855851 1 Tablet(s) PO QD No Start Date 10/06 Inactive baclofen 10 mg tablet RxNorm: 103435 1 Tablet(s) PO QHS No Start Da te 09/11/2015 Inactive Tums 500 Oral RxNorm: Oral No Start Date 01/13/2015 Inactive Senokot-S 8.6 mg-50 mg tablet RxNorm: 4401619 1 Tablet(s) PO BID No Start Date 11/26/2018 Inactive Prozac 10 mg Tab RxNorm: 583272 1 Capsule(s) PO QD No Start Date 10/06 Inactive Elavil 10 mg tablet RxNorm: 310652 1 Tablet(s) PO QHS No Start Date 0 12/12/2018 Inactive Dulcolax Stool Softener (docusate) 100 mg capsule RxNorm: 12 78405 1 Capsule(s) PO Q8H as needed No Start Date 01/19/2017 Inactive Adderall XR 30 mg 24 hr Cap RxNorm: 844657 1 Capsule(s) PO QAM No S tart Date 04/14/2011 Inactive Milk of Alexa-Genieara 15.25 % oral suspension RxNorm: oral No Start Date 11/26/2018 Inactive Tylenol 325 mg tablet RxNorm: 701961 2 Tablet(s) PO Q4H as needed N o Start Date 11/26/2018 Inactive Prilosec 20 mg capsule,delayed release RxNorm: 499094 1 Capsule (s) PO BID No Start Date 09/08/2014 Inactive Tylenol 8 Hour 650 mg tablet,extended release RxNorm: 707334 0 1 Tablet(s) PO Q4H as needed No Start Date 11/26/2018 Inactive Vitamin D3 2,000 unit tablet RxNorm: 633012 1 Tablet(s) PO QD No St art Date 02/22/2017 Inactive nystatin 100,000 unit/gram topical powder RxNorm: 502459 1 Appl ication TOP BID No Start Date 08/15/2017 Inactive morphine 20 mg/5 mL (4 mg/mL) oral solution RxNorm: 326524 .25 Milliliter(s) PO Q4H as needed No Start Date 09/24/2018 Inactive Forteo 20 mcg/dose (750 mcg/3 mL) Sub-Q Pen Injector RxNorm: 143 5115 SQ QD No Start Date 01/21/2010 Inactive ciprofloxacin 0.3 % Eye Drops RxNorm: 591224 2 Drop(s) OPH TID to affected eye No Start Date 08/23/2012 Inactive bisacodyl 5 mg tablet RxNorm: 932351 1 Tablet(s) PO BID No Start Da te 02/11/2016 Inactive Avosil 2 %-0.2 % topical ointment RxNorm: 1 Appl ication TOP Q8H as needed to burn sites No Start Date 11/26/2018 Inactive Milk of Magnesia 800 mg/5 mL oral suspension RxNorm: 034836 Milliliter(s) PO as needed No Start Date 06/20/2018 Inactive Atarax 25 mg tablet RxNorm: 551684 1 Tablet(s) PO Q4H prn itchi ng/hives No Start Date 08/24/2011 Inactive Adderall XR 30 mg 24 hr Cap RxNorm: 660954 1 Capsule(s) PO QAM No S tart Date 07/26/2010 Inactive Prevacid 30 mg Cap RxNorm: 067986 1 Capsule(s) PO QD No Start Date Inactive Vitamin C 500 mg tablet RxNorm: 234651 1 Tablet(s) PO BID No Start Date 07/11/2016 Inactive Vistaril 25 mg capsule RxNorm: 148702 1 Capsule(s) PO Q4H PRN No St art Date 03/02/2010 Inactive tramadol 50 mg tablet RxNorm: 053981 1 Tablet(s) PO TID as need ed for pain No Start Date 01/21/2013 Inactive Multivitamin & Mineral Formula tablet RxNorm: 1 Tablet(s) PO Q D No Start Date 06/22/2018 Inactive hydrocodone 5 mg-acetaminophen 325 mg tablet RxNorm: 573878 1 Tablet(s) PO Q4H as needed for pain No Start Date 06/24/2019 Inactive Multivitamin & Mineral Formula Oral RxNorm: Oral No Start Da te 03/02/2010 Inactive Miralax 17 gram oral powder packet RxNorm: 713484 17 Gr am(s) PO QPM for constipation No Start Date 02/25/2015 Inactive Percocet 5 mg-325 mg tablet RxNorm: 6231285 1-2 Tablet(s) PO Q4H as needed No Start Date 09/24/2018 Inactive triamcinolone acetonide 0.1 % topical cream RxNorm: 7728457 1 Application TOP TID to affected area as needed No Start Date 12/12/2013 Inactive rabeprazole 20 mg tablet,delayed release RxNorm: 102032 1 Table t(s) PO QD No Start Date 09/24/2018 Inactive Protonix 40 mg tablet,delayed release RxNorm: 613018 1 Tablet(s ) PO QD No Start Date 10/18/2012 Inactive Mobic 7.5 mg Tab RxNorm: 175996 1 Tablet(s) PO BID No Start Date 10/06 Inactive Sinemet CR 50 mg-200 mg Tab RxNorm: 530441 1 Tablet(s) PO QD No Sta rt Date 03/02/2010 Inactive Adderall XR 20 mg 24 hr Cap RxNorm: 727533 2 Capsule(s) PO QD No St art Date 02/02/2010 Inactive Medication Administered No Medication Administered data Immunizations No Immunization data Results Observation Observation Code Item Item Code Result Date S ervice Location COMPLETE BLOOD COUNT [id number] WBC 7.3 10e9/L 05/29/20 12 Unknown COMPLETE BLOOD COUNT [id number] RBC 5.20 10e12/L 2011 Unknown COMPLETE BLOOD COUNT [id number] HGB 15.3 g/dL 2 Unknown COMPLETE BLOOD COUNT [id number] HCT DET 45.9 % 2 Unknown COMPLETE BLOOD COUNT [id number] MCV 88.3 fL 2 Unknown COMPLETE BLOOD COUNT [id number] MCH 29.4 pg 2 Unknown COMPLETE BLOOD COUNT [id number] MCHC 33.3 g/dL 2 Unknown COMPLETE BLOOD COUNT [id number] PLT 341 10e9/L 05/29/20 12 Unknown COMPLETE BLOOD COUNT [id number] MPV 10.1 fL 2 Unknown COMPLETE BLOOD COUNT [id number] ASHLEY % 63.2 % 2 Unknown COMPLETE BLOOD COUNT [id number] LY % 27.4 % 2 Unknown COMPLETE BLOOD COUNT [id number] MON % 7.6 % 2 Unknown COMPLETE BLOOD COUNT [id number] EOS % 1.5 % 2 Unknown COMPLETE BLOOD COUNT [id number] BASO % 0.3 % 2 Unknown COMPLETE BLOOD COUNT [id number] RDW 13.6 % 2 Unknown COMPLETE BLOOD COUNT [id number] ABS ASHLEY 4.61 10e9/L 012 Unknown COMPLETE BLOOD COUNT [id number] ABS LYMPH 2.00 10e9/L 012 Unknown COMPLETE BLOOD COUNT [id number] ABS MONO 0.55 10e9/L 012 Unknown COMPLETE BLOOD COUNT [id number] ABS EOS 0.11 10e9/L 012 Unknown COMPLETE BLOOD COUNT [id number] ABS BASO 0.02 10e9/L 012 Unknown COMPLETE BLOOD COUNT [id number] RDW-SD 43.5 fL 2 Unknown THYROID STIMULATING HORMONE 94092 TSH 1.487 uIU/ML 05/29/2012 Unknown GFR CALC [id number] GFR AA >60 ML/MIN 05/29/2012 Unknown GFR CALC [id number] GFR NON-AA >60 ML/MIN 05/29/2012 Unknown FREE T4 62620 FREE T4 1.20 NG/DL 05/29/2012 Unknown COMPREHENSIVE METABOLIC 16062 AST 17 U/L 2011 Unknown COMPREHENSIVE METABOLIC 56554 ALT 16 IU/L 2011 Unknown COMPREHENSIVE METABOLIC 39052 BUN 9 MG/DL 2011 Unknown COMPREHENSIVE METABOLIC 19435 ALBUMIN 4.1 GM/DL 2011 Unknown COMPREHENSIVE METABOLIC 93730 CHLORIDE 106 MMOL/L 05/29 Unknown COMPREHENSIVE METABOLIC 31722 BILI TOT 0.4 MG/DL 2011 Unknown COMPREHENSIVE METABOLIC 29305 ALK PHOS 87 U/L 2011 Unknown COMPREHENSIVE METABOLIC 98252 SODIUM 142 MMOL/L 05/29 Unknown COMPREHENSIVE METABOLIC 75660 CREATININE 0.79 MG/DL 05/09 Unknown COMPREHENSIVE METABOLIC 05772 CALCIUM 9.2 MG/DL 2011 Unknown COMPREHENSIVE METABOLIC 95731 POTASSIUM 3.6 MMOL/L 05/29 Unknown COMPREHENSIVE METABOLIC 63772 PROT TOT 6.5 GM/DL 2011 Unknown COMPREHENSIVE METABOLIC 69919 Glucose 78 MG/DL 2011 Unknown COMPREHENSIVE METABOLIC 89443 BICARB 27 MMOL/L 2011 Unknown COMPREHENSIVE METABOLIC 31466 ANION GAP 9 MEQ/L 2011 Unknown Procedures Procedure Codes Date PPPS, subseq visit CPT-4: G0439 08/03/2018 PPPS, subseq visit CPT-4: G0439 07/12/2016 CUR TOBACCO NON-USER CPT-4: G8457 04/15/2015 URINALYSIS NONAUTO W/O SCOPE CPT-4: 17148 07/05/2012 URINE CULTURE/ COLONY COUNT CPT-4: 46718 07/05/2012 PRESCRIP TRANSMIT VIA ERX SY CPT-4: G8553 07/05/2012 ROUTINE VENIPUNCTURE CPT-4: 56611 05/29/2012 ASSAY OF FREE THYROXINE CPT-4: 74246 05/29/2012 ASSAY THYROID STIM HORMONE CPT-4: 91308 05/29/2012 COMPREHEN METABOLIC PANEL CPT-4: 30044 05/29/2012 COMPLETE CBC W/AUTO DIFF WBC CPT-4: 30017 05/29/2012 PRESCRIP TRANSMIT VIA ERX SY CPT-4: G8553 05/29/2012 PRESCRIP TRANSMIT VIA ERX SY CPT-4: G8553 02/02/2012 PRESCRIP TRANSMIT VIA ERX SY CPT-4: G8553 05/27/2011 PRESCRIP TRANSMIT VIA ERX SY CPT-4: G8553 02/22/2011 SERVICE REQUIRED FOR PMD CPT-4: G0372 06/15/2010 ROUTINE VENIPUNCTURE CPT-4: 33626 10/20/2009 Vital Signs Date Vital 12/03/2019 Blood [...] 1: 114/66 Code: 8480-6 BMI: 25.8 Code: 74419-0 Heart Rate 1: 72 bpm Height: 5'2" [...] 1: 122/80 Code: 8480-6 BMI: 24.9 Code: 62757-4 Heart Rate 1: 100 bpm Height: 5'2" Respiratory Rate: 20 bpm Temperature: 37 .1 (C) / 98.8 (F) Weight: 136 lbs 11/03/2011 Blood Pressure 1: 104/60 Code: 8480-6 BMI: 24.1 Code: 16052-3 Heart Rate 1: 88 bpm Height: 5'2" Respiratory Rate: 20 bpm Temperature: 36 .6 (C) / 97.8 (F) Weight: 132 lbs 08/25/2011 Blood Pressure 1: 128/86 Code: 8480-6 BMI: 24.9 Code: 21347-9 Heart Rate 1: 76 bpm Height: 5'2" Respiratory Rate: 20 bpm Temperature: 36 .2 (C) / 97.2 (F) Weight: 136 lbs 05/27/2011 Blood Pressure 1: 130/90 Code: 8480-6 BMI: 25.1 Code: 41913-9 Heart Rate 1: 68 bpm Height: 5'2" [...] 1: 114/70 Code: 8480-6 BMI: 22.9 Code: 68809-7 Heart Rate 1: 92 bpm Height: 5'2" [...] of left upper extremity[ICD10: S41.112A] Cherri MACHUCA [employer] CPT-4: 06606 12/10/2019 ([id number]) OFFICE/OUTPATIENT VISIT EST Diagnosis: Constipation[ICD10: K59.00] Diagnosis: Sacral decubitus ulcer[ICD10: L89.159] Cherri OLSON [employer] CPT-4: 28212 12/03/2019 ([id number]) OFFICE/OUTPATIENT VISIT EST 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] Diagnosis: Muscle weakness (generalized)[ICD10: M62.81] Cherri MACHUCA [employer] CPT-4: 68389 10/01/2019 ([id number]) OFFICE/OUTPATIENT VISIT EST Diagnosis: Personal history of malignant neoplasm of brain[ICD10: Z85.841] Diagnosis: Muscle weakness (generalized)[ICD10: M62.81] Diagnosis: Hemiplegia, unspecified affecting left dominant side[ICD10: G81.92] Diagnosis: Contracture, 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] Cherri Ezio HOLGUIN DO [facility] CPT-4: 95311 06/25/2019 ([id number]) OFFICE/OUTPATIENT VISIT EST Diagnosis: Attention and concentration deficit[ICD10: R41.840] Diagnosis: Abnormal weight loss[ICD10: R63.4] Cherri HOLGUIN DO [facility] CPT-4: 33669 02/05/2019 ([id number]) OFFICE/OUTPATIENT VISIT EST Diagnosis: Attention and concentration deficit[ICD10: R41.840] Cherri HOLGUIN DO [facility] CPT-4: 83734 12/13/2018 ([id number]) OFFICE/OUTPATIENT VISIT EST Diagnosis: Laceration without foreign body of left upper arm, sequela[ICD10: S41.112S] Diagnosis: Other fatigue[ICD10: R53.83] Cherri HOLGUIN DO [facility] CPT-4: 12008 11/27/2018 ([id number]) OFFICE/OUTPATIENT VISIT EST Diagnosis: Gastro-esophageal reflux disease without esophagitis[ICD10: K21.9] Diagnosis: Contracture, 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] Diagnosis: Slow transit constipation[ICD10: K59.01] Cherri HOLGUIN DO [facility] CPT-4: 07604 09/25/2018 ([id number]) OFFICE/OUTPATIENT VISIT EST Diagnosis: Gastro-esophageal reflux disease without esophagitis[ICD10: K21.9] Diagnosis: Muscle weakness (generalized)[ICD10: M62.81] Maxine HOLGUIN DO [facility] CPT-4: 50875 06/22/2018 ([id number]) OFFICE/OUTPATIENT VISIT EST Diagnosis: Gastro-esophageal reflux disease without esophagitis[ICD10: K21.9] Cherri HOLGUIN DO [facility] CPT-4: 96891 04/06/2018 ([id number]) OFFICE/OUTPATIENT VISIT EST Diagnosis: Gastro-esophageal reflux disease without esophagitis[ICD10: K21.9] Maxine HOLGUIN DO [facility] CPT-4: 90148 03/06/2018 ([id number]) OFFICE/OUTPATIENT VISIT EST Diagnosis: 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] Diagnosis: Gastro-esophageal reflux disease without esophagitis[ICD10: K21.9] Diagnosis: Slow transit constipation[ICD10: K59.01] Diagnosis: Primary insomnia[ICD10: F51.01] Cherri HOLGUIN [employer] [facility] CPT-4: 09549 02/15/2018 ([id number]) OFFICE/OUTPATIENT VISIT EST Diagnosis: Muscle weakness (generalized)[ICD10: M62.81] Diagnosis: Gastro-esophageal reflux disease without esophagitis[ICD10: K21.9] Cherri HOLGUIN [employer] [facility] CPT-4: 97495 12/12/2017 ([id number]) OFFICE/OUTPATIENT VISIT EST Diagnosis: Nondisplaced fracture of medial malleolus of left tibia, subsequent encounter for closed fracture with delayed healing[ICD10: S82.55XG] Cherri HOLGUIN [employer] [facility] CPT-4: 98171 10/10/2017 OFFICE/OUTPATIENT VISIT EST Diagnosis: Acute upper respiratory infection, unspecified[ICD10: J06.9] Maxine HOLGUIN [employer] [facility] CPT-4: 77957 09/19/2017 ([id number]) OFFICE/OUTPATIENT VISIT EST Diagnosis: Muscle weakness (generalized)[ICD10: M62.81] Diagnosis: Other specified disorders of the skin and subcutaneous tissue[ICD10: L98.8] Cherri HOLGUIN [employer] [facility] CPT-4: 49435 08/04/2017 ([id number]) OFFICE/OUTPATIENT VISIT EST Diagnosis: Unspecified open wound of abdominal wall, left upper quadrant with penetration into peritoneal cavity, sequela[ICD10: S31.601S] Diagnosis: Muscle weakness (generalized)[ICD10: M62.81] Diagnosis: Personal history of malignant neoplasm of brain[ICD10: Z85.841] Cherri HOLGUIN [employer] [facility] CPT-4: 35570 07/12/2017 ([id number]) OFFICE/OUTPATIENT VISIT EST Diagnosis: Non-pressure chronic ulcer of skin of other sites with unspecified severity[ICD10: L98.499] Diagnosis: Tinea cruris[ICD10: B35.6] Cherri RUSHING DO [facility] CPT-4: 46297 05/30/2017 ([id number]) OFFICE/OUTPATIENT VISIT EST Diagnosis: Cellulitis of abdominal wall[ICD10: L03.311] Diagnosis: Cellulitis of chest wall[ICD10: L03.313] Cherri HOLGUIN DO [facility] CPT-4: 82427 05/02/2017 ([id number]) OFFICE/OUTPATIENT VISIT EST Diagnosis: Cellulitis of chest wall[ICD10: L03.313] Diagnosis: Muscle weakness (generalized)[ICD10: M62.81] Cherri HOLGUIN DO [facility] CPT-4: 81116 02/28/2017 ([id number]) OFFICE/OUTPATIENT VISIT EST Diagnosis: Cellulitis of abdominal wall[ICD10: L03.311] Cherri HOLGUIN [facility] CPT-4: 19135 12/06/2016 OFFICE/OUTPATIENT VISIT EST Diagnosis: Cutaneous abscess of abdominal wall[ICD10: L02.211] Diagnosis: Cellulitis of abdominal wall[ICD10: L03.311] Cherri HOLGUIN DO [facility] CPT-4: 17271 12/02/2016 ([id number]) OFFICE/OUTPATIENT VISIT EST Diagnosis: Cellulitis of abdominal wall[ICD10: L03.311] Diagnosis: Cutaneous abscess of abdominal wall[ICD10: L02.211] Cherri HOLGUIN DO [facility] CPT-4: 50602 12/01/2016 ([id number]) OFFICE/OUTPATIENT VISIT EST Diagnosis: Cutaneous abscess of abdominal wall[ICD10: L02.211] Diagnosis: Cellulitis of abdominal wall[ICD10: L03.311] Cherri HOLGUIN DO [facility] CPT-4: 42516 11/30/2016 ([id number]) OFFICE/OUTPATIENT VISIT EST Diagnosis: Muscle weakness (generalized)[ICD10: M62.81] Diagnosis: Slow transit constipation[ICD10: K59.01] Diagnosis: 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, 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] Cherri HOLGUIN DO [facility] CPT-4: 56381 10/26/2016 ([id number]) OFFICE/OUTPATIENT VISIT EST Diagnosis: Other seborrheic dermatitis[ICD10: L21.8] Cherri HOLGUIN DO [facility] CPT-4: 53902 09/13/2016 ([id number]) OFFICE/OUTPATIENT VISIT EST Diagnosis: Contracture, 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] Diagnosis: Nicotine dependence, cigarettes, uncomplicated[ICD10: F17.210] Diagnosis: Hemiplegia, unspecified affecting unspecified side[ICD10: G81.90] Diagnosis: Muscle weakness (generalized)[ICD10: M62.81] Cherri HOLGUIN DO [facility] CPT-4: 63889 05/11/2016 ([id number]) OFFICE/OUTPATIENT VISIT EST Diagnosis: Muscle weakness (generalized)[ICD10: M62.81] Diagnosis: Abnormal weight loss[ICD10: R63.4] Cherri HOLGUIN [employer] [facility] CPT-4: 97382 12/23/2015 ([id number]) OFFICE/OUTPATIENT VISIT EST Diagnosis: Torticollis[ICD10: M43.6] Diagnosis: Cervicalgia[ICD10: M54.2] Diagnosis: Basal cell carcinoma of skin, unspecified[ICD10: C44.91] Cherri HOLGUIN [facility] CPT-4: 24110 09/23/2015 ([id number]) OFFICE/OUTPATIENT VISIT EST Diagnosis: Constipation[ICD9: 564.00] Diagnosis: MUSCLE WEAKNESS-GENERAL[ICD9: 728.87] Cherri SANCHEZDELFINA RYLIE Martha HOLGUIN [employer] [facility] CPT-4: 77523 04/15/2015 ([id number]) OFFICE/OUTPATIENT VISIT EST Diagnosis: MALAISE AND FATIGUE[ICD9: 780.79] Diagnosis: 3RD DEGREE BURN[ICD9: 949.3] Cherricesar JOHNSTONLINE Martha HOLGUIN [employer] [facility] CPT-4: 21507 01/14/2015 ([id number]) OFFICE/OUTPATIENT VISIT EST Diagnosis: Constipation[ICD9: 564.00] Diagnosis: MUSCLE WEAKNESS-GENERAL[ICD9: 728.87] Diagnosis: 3RD DEGREE BURN[ICD9: 949.3] Cherri HOLGUIN DO [facility] CPT-4: 95221 10/29/2014 ([id number]) OFFICE/OUTPATIENT VISIT EST Diagnosis: Weakness generalized[ICD9: 780.79] Diagnosis: 3RD DEGREE BURN[ICD9: 949.3] Cherri HOLGUIN DO [facility] CPT-4: 59242 08/20/2014 ([id number]) OFFICE/OUTPATIENT VISIT EST Diagnosis: 3RD DEGREE BURN[ICD9: 949.3] Diagnosis: DYSPHAGIA NEC[ICD9: 787.29] Cherri [facility]HAELS [facility] CPT-4: 53985 06/04/2014 ([id number]) OFFICE/OUTPATIENT VISIT EST Diagnosis: 3RD DEGREE BURN[ICD9: 949.3] Diagnosis: Complication of skin graft[ICD9: 996.52] Diagnosis: TOBACCO USE DISORDER[ICD9: 305.1] [facility] CPT-[facility]: 54241 05/06/2014 ([id number]) OFFICE/OUTPATIENT VISIT EST Diagnosis: CELLULITIS[ICD9: 682.9] Cherri [facility]UN[facility] CPT-4: 20476 08/07/2013 ([id number]) OFFICE/OUTPATIENT VISIT EST Diagnosis: MUSCLE WEAKNESS-GENERAL[ICD9: 728.87] Diagnosis: MALAISE AND FATIGUE[ICD9: 780.79] Diagnosis: ABNORMALITY OF GAIT[ICD9: 781.2] Cherri HOLGUIN 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 CPT-4: 92270 04/25/2013 ([id number]) OFFICE/OUTPATIENT VISIT EST Diagnosis: MUSCLE WEAKNESS-GENERAL[ICD9: 728.87] Diagnosis: ABNORMALITY OF GAIT[ICD9: 781.2] Diagnosis: MALAISE AND FATIGUE[ICD9: 780.79] [facility] CPT-4: 86171 01/22/2013 OFFICE/OUTPATIENT VISIT EST Diagnosis: MALAISE AND FATIGUE[ICD9: 780.79] Diagnosis: MUSCLE WEAKNESS-GENERAL[ICD9: 728.87] Diagnosis: HEMIPLEGIANOS SIDE NOS[ICD9: 342.90] Diagnosis: ABNORMALITY OF GAIT[ICD9: 781.2] [facility] CPT-4: 39438 10/18/2012 OFFICE/OUTPATIENT VISIT EST Diagnosis: ABNORMALITY OF GAIT[ICD9: 781.2] Diagnosis: MALAISE AND FATIGUE[ICD9: 780.79] Diagnosis: MUSCLE WEAKNESS-GENERAL[ICD9: 728.87] [facility] CPT-4: 28968 09/25/2012 OFFICE/OUTPATIENT VISIT EST Diagnosis: CERVICALGIA[ICD9: 723.1] Diagnosis: ABNORMALITY OF GAIT[ICD9: 781.2] Diagnosis: MUSCLE WEAKNESS-GENERAL[ICD9: 728.87] [facility] CPT-4: 44685 08/24/2012 ([id number]) OFFICE/OUTPATIENT VISIT EST Diagnosis: URINARY TRACT INFECTION[ICD9: 599.0] Diagnosis: Altered mental state[ICD9: 780.97] Diagnosis: MUSCLE WEAKNESS-GENERAL[ICD9: 728.87] Diagnosis: HEMIPLEGIANOS SIDE NOS[ICD9: 342.90] Diagnosis: Cervicalgia[ICD9: 723.1] Cherri Pappasramuxuan [facility]IAS [facility] CPT-4: 57787 07/27/2012 OFFICE/OUTPATIENT VISIT EST Diagnosis: URINARY TRACT INFECTION[ICD9: 599.0] Diagnosis: Weakness generalized[ICD9: 780.79] Diagnosis: FEBRILE ILLNESS[ICD9: 780.60] Diagnosis: Vision disturbance[ICD9: 368.9] Tasneem HOLGUIN DO [facility] CPT-4: 19806 07/05/2012 OFFICE/OUTPATIENT VISIT EST Diagnosis: CONJUNCTIVITIS NOS[ICD9: 372.30] Diagnosis: MUSCLE WEAKNESS-GENERAL[ICD9: 728.87] Diagnosis: HEMIPLEGIANOS SIDE NOS[ICD9: 342.90] Diagnosis: ABNORMALITY OF GAIT[ICD9: 781.2] Cherri HOLGUIN [employer] [facility] CPT-4: 53050 05/29/2012 ([id number]) OFFICE/OUTPATIENT VISIT EST Diagnosis: MUSCLE WEAKNESS-GENERAL[ICD9: 728.87] Diagnosis: HEMIPLEGIANOS SIDE NOS[ICD9: 342.90] Diagnosis: ABNORMALITY OF GAIT[ICD9: 781.2] Diagnosis: DYSPEPSIA[ICD9: 536.8] Diagnosis: GERD[ICD9: 530.81] Cherri HOLGUIN [employer] CPT-4: 21416 02/02/2012 ([id number]) OFFICE/OUTPATIENT VISIT EST Diagnosis: MUSCLE WEAKNESS-GENERAL[ICD9: 728.87] Diagnosis: ABNORMALITY OF GAIT[ICD9: 781.2] Diagnosis: GERD[ICD9: 530.81] Cherri HOLGUIN [employer] [facility] CPT-4: 15727 11/03/2011 OFFICE/OUTPATIENT VISIT EST Diagnosis: MUSCLE WEAKNESS-GENERAL[ICD9: 728.87] Diagnosis: ABNORMALITY OF GAIT[ICD9: 781.2] Diagnosis: VOMITING ALONE[ICD9: 787.03] Diagnosis: GERD[ICD9: 530.81] Cherri HOLGUIN [employer] [facility] CPT-4: 89689 08/25/2011 OFFICE/OUTPATIENT VISIT EST Diagnosis: CONJUNCTIVITIS NOS[ICD9: 372.30] Cherri HOLGUIN [employer] [facility] CPT-4: 24264 05/27/2011 OFFICE/OUTPATIENT VISIT EST Diagnosis: MUSCLE WEAKNESS-GENERAL[ICD9: 728.87] Diagnosis: ABNORMALITY OF GAIT[ICD9: 781.2] Cherri HOLGUIN [employer] [facility] CPT-4: 62362 04/15/2011 OFFICE/OUTPATIENT VISIT EST Diagnosis: MALAISE AND FATIGUE[ICD9: 780.79] Diagnosis: MUSCLE WEAKNESS-GENERAL[ICD9: 728.87] Diagnosis: DEPRESSIVE DISORDER NEC[ICD9: 311] Diagnosis: ABNORMALITY OF GAIT[ICD9: 781.2] Cherri Mianrl CHERRI Thomas ORENDER DO [facility] CPT-4: 33840 03/22/2011 OFFICE/OUTPATIENT VISIT EST Cherri Thomas ORE NDER DO [facility] CPT- 4: 19231 02/22/2011 ([id number]) OFFICE/OUTPATIENT VISIT EST Cherri Oreramuxuan MELO SBelkis ORENDER DO [facility] CPT-4: 36722 01/26/2011 ([id number]) OFFICE/OUTPATIENT VISIT, EST Cherricrystal DENNEY SBelkis ORENDER DO [employer] CPT-4: 04033 06/15/2010 ([id number]) OFFICE/OUTPATIENT VISIT, EST Cherri Mianrl DANIEL DENNEY S. ORENDER DO [facility] CPT-4: 54085 05/04/2010 ([id number]) OFFICE/OUTPATIENT VISIT, EST Cherri DENNEY SBelkis ORENDER DO [employer] CPT-4: 26777 03/03/2010 ([id number]) OFFICE/OUTPATIENT VISIT, EST Cherri DENNEY S. ORENDER DO [employer] CPT-4: 35823 10/20/2009 Plan of Care Planned Activity Notes Codes Status Date Visit Diagnosis Plan: Left arm cellulitis Discussion: Doxy.la video visit done with nurse [place] Start Keflex Continue with clear tegaderm dressing and brian wrap and ice Notify if any worsening ICD-9 : 682.3 ICD-10 : L03.114 12/10/2019 Appointment: Cher[facility] [phone] [facility] 12/10/2019 Visit Diagnosis Plan: Constipation Discussion: Doxy.me video with [facility] nurse done Changing to bisacodyl suppository ICD-9 : 564.00 ICD-10 : K59.00 12/03/2019 Visit Diagnosis Plan: Sacral decubitus ulcer Discussio n: Wound Care seeing this week Follow Up: 2 months ICD-9 : 707.03 ICD-10 : L89.159 12/03/2019 Appointment: Cherri Holguintel: [address] [place], [place] [phone] [place] TELE[place]INE 12/03/2019 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 FOLLOW UP 06/25/2019 [...] ICD-10 : R63.4 02/05/2019 Appointment: Cherri Holguintel: [address] [place], [place] [phone] [place] Confirmed with Nara Hankins 02/02 @ 11:07 am FOL LOW UP 02/05/2019 Appointment: Cherri Holguintel: [address] [place], [place] [phone] [place] NO SHOW 01/24/2019 Visit Diagnosis Plan: Attention and concentration defi cit Discussion: Trial of strattera 10mg daily for 1 week then 25mg daily Recheck 6 weeks Stimulants have caused weight loss in past as patient is also poor, picky eater so with the stimulants her appetite worsens even more ICD-9 : 799.51 ICD-10 : R41.840 12/13/2018 Appointment: Cherri Holguintel: [address] [place], [place] [phone] [place] confirmed with Morena FOLLOW UP 12/13/2018 [...] : R53.83 11/27/2018 Appointment: Cherri Holguin WPtel: [address] [place], [place] [phone] [place] confirmed with Karlee FOLLOW UP 11/27/2018 [...] ICD-10 : K59.01 09/25/2018 Appointment: Cherri Holguintel: [address] [place], [place] [phone] [place] FOLLOW UP 09/25/2018 Visit Diagnosis Plan: [...] : Z12.11 08/03/2018 Appointment: Maxine Glasgow [address] [facility] Annual Well Visit 08/03/2018 Visit Diagnosis [...] : K21.9 06/22/2018 [facility] [facility] 06/22/2018 Visit Diagnosis Plan: Gastro-esophageal reflux disease without esophagitis Discussion: Continue aciphex at 20m po daily Recheck 2mos ICD-9 : 530.81 ICD-10 : K21.9 04/06/2018 Appointment: Cherri Holguintel: [address] [place], [place] [phone] FOLLOW UP 04/06/2018 Patient Education: Patient Medication Summary Completed 04/06/2018 Appointment: Cherri Holguintel: [address] [facility] [place] RESCHEDULED 03/07/2018 Visit Diagnosis Plan: Gastro-esophageal reflux disease without esophagitis Discussion: patient had aciphex and prevacid on med list. order written out on patient's list to only give the aciphex as prescribed and not both. follow up in one month to assess medication efficacy and constipation. ICD-9 : 530.81 ICD-10 : K21.9 03/06/2018 Appointment: Maxine Glasgow [address] [place], [place] [phone] FOLLOW UP 03/06/2018 Patient Education: Patient Medication [...] : F51.01 02/15/2018 Appointment: Cherri Holguin WPtel: [address] [place], [place] [phone] FOLLOW UP 02/15/2018 Patient Education: Patient Medication Summary Completed 02/15/2018 Appointment: Cherri Holguin WPtel: [facility] [facility] stating that the [facility] [...] : M62.81 12/12/2017 Appointment: Cherri Holguin WPtel: [address] [place] [address] FOLLOW UP 12/12/2017 Patient Education: Patient Medication Summary Completed 12/12/2017 Visit Diagnosis Plan: Nondisplaced fract ure of medial malleolus of left tibia, subsequent encounter for closed fracture with delayed healing Discussion: Add miacalcin nasal spray for next 2mos Fwup with ortho Follow Up: 2 months ICD-9 : V54.16 ICD-10 : S82.55XG 10/10/2017 Appointment: Cherri Holguin WPtel: [address] [place] [address] FOLLOW UP 10/10/2017 Patient Education: Patient Medication Summary Completed 10/10/2017 Appointment: Cherri Holguin WPtel: [address] [place] [address] [place] RESCHEDULED 10/04/2017 Referral: Alvarado Mercado WPtel: [address] [address] [place] Referral Initiated 10/04/2017 Visit Diagnosis Plan: Acute upper respiratory infectio n, unspecified Discussion: continue with chika ragland as needed. increase fluids. notify if worsening symptoms including shortness of breath or fever. call or rtc later this week if no improvement. instructed patient to perform deep breathing exercises at home. ICD-9 : 465.9 ICD-10 : J06.9 09/19/2017 Appointment: Maxine Glasgow [address] [place] [address] ACUTE ILLNESS 09/19/2017 Patient Education: Patient Medication Summary Completed 09/19/2017 Appointment: Cherri Holguin WPtel: [address] [place] [address] [place] CANCELED 08/16/2017 Visit Diagnosis Plan: Muscle [...] : L98.8 08/04/2017 Appointment: Cherri Holguin WPtel: [address] [place], [place] [id number] FOLLOW UP 08/04/2017 Patient Education: Patient Medication [...] : Z85.841 07/12/2017 Appointment: Cherri Holguin WPtel: [address] [place], [place] [phone] [facility] Follow Up 07/12/2017 Patient Education: Patient [...] : B35.6 05/30/2017 Appointment: Cherri Holguin WPtel: [address] [place], [place] [phone] [place] FOLLOW UP 05/30/2017 Patient Education: Patient Medication Summary Completed 05/30/2017 Visit Diagnosis Plan: Cellulitis of abdominal wall Dis cussion: Finish keflex Referral to wound care ICD-9 : 682.2 ICD-10 : L03.311 05/02/2017 Appointment: Cherri Holguin WPtel: [address] [place], [place] [phone] [place] FOLLOW UP 05/02/2017 Patient Education: Patient Medication Summary Completed 05/02/2017 Referral: Remigio Valdes WPtel: [address] [place], [place] [phone] [place] Referral Initiated 04/05/2017 Visit Diagnosis Plan: Cellulitis of chest wall Discuss ion: Keflex x1 week Continue daily dressing changes ICD-9 : 682.2 ICD-10 : L03.313 02/28/2017 Visit Diagnosis Plan: Muscle weakness (generalized) Di scussion: Stable Follow Up: 2 months ICD-9 : 728.87 ICD-10 : M62.81 02/28/2017 Appointment: Cherri Holguin WPtel: [address] [place], [place] [phone] [place] 02/24 confirmed~sl FOLLOW UP 02/28/2017 Patient Education: Patient Medication Summary Completed 02/28/2017 Visit Diagnosis Plan: Cellulitis of abdominal wall Dis cussion: Healing and improving so will finish all of clindamycin and monitor wounds for any worsening or recurrence ICD-9 : 682.2 ICD-10 : L03.311 12/06/2016 Appointment: Cherri Holguin WPtel: [address] [place], [place] [phone] [place] WORK IN 12/06/2016 Patient Education: Patient Medication Summary Completed 12/06/2016 Visit Diagnosis Plan: Cutaneous abscess of abdominal w all Discussion: Continue clindamycin and dressing changes To ER this weekend if worsens Fwup with me in 4 days for recheck ICD-9 : 682.2 ICD-10 : L02.211 12/02/2016 Appointment: Cherri Holguin WPtel: [address] [place] [id number] [place] FOLLOW UP 12/02/2016 Patient Education: Patient [...] : L02.211 12/01/2016 Appointment: Cherri Holguin WPtel: [address] [place] [id number] WORK IN 12/01/2016 Patient Education: Patient Medication Summary Completed 12/01/2016 Visit Diagnosis Plan: Cutaneous abscess of abdominal w all Discussion: Copious amounts of pus expressed until bloody discharge Start clindamycin Recheck tomorrow Erythema outline marked Follow Up: 1 days ICD-9 : 682.2 ICD-10 : L02.211 11/30/2016 Appointment: Cherri Holguin WPtel: [address] [place] [id number] 11/29 confirmed`sl FOLLOW UP 11/30/2016 Patient Education: Patient Medication Summary Completed 11/30/2016 Appointment: Cherri Holguintel: [address] [place] [id number] 11/10 scalp looks ok will discuss at [...] : K59.01 10/26/2016 Appointment: Cherri Holguin WPtel: [address] [place], [place] [phone] ACUTE ILLNESS 10/26/2016 Patient Education: Patient Medication Summary Completed 10/26/2016 Patient Education: Patient Medication Summary Completed 10/21/2016 Care Plan: CT HEAD/BRAIN W/O DYE LOINC : 71099-3 Pending 10/21/2016 Visit Diagnosis Plan: Other seborrheic dermatitis Disc ussion: Topical ketoconazole shampoo alternating with selsun blue Follow Up: 2 months ICD-9 : 706.3 ICD-10 : L21.8 09/13/2016 Appointment: Cherri Holguin WPtel: [address] [place], [place] [phone] 09/09 confirm`sl FOLLOW UP 09/13/2016 Patient Education: Patient Medication Summary Completed 09/13/2016 Appointment: Cherri Holguin WPtel: [address] [place], [place] [phone] [place] CANCELED 07/13/2016 Visit Plan: Low-dose CT scan-45 PPD of C hest Check hemoccult Discussed updated CT of head to recheck meningioma Zostavax vaccine Will obtain last colonoscopy results Update lab 07/12/2016 Appointment: Cherri Holguin WPtel: [address] [place], [place] [phone] [place] 07/08 confirmed~sl Annual Well Visit 07/12/2016 Patient Education: Patient Medication Summary Completed 07/12/2016 Visit Plan: Gets teeth extracted next mo nth then getting fitted for dentures so some of poor appetite is due to inability to eat certain things Continue current meds Defers flu shot 05/11/2016 Appointment: Cherri Holguin WPtel: [address] [place], [place] [phone] 05/10 confirmed~sl FOLLOW UP 05/11/2016 Patient Education: Patient Medication Summary Completed 05/11/2016 Visit Plan: Discussed nutrition and poss ible shakes as supplement until gets teeth completely pulled and fitted for full dentures Continue current meds Did have right scalp lesion removed 12/23/2015 Appointment: Cherri Holguin WPtel: [address] [place] [phone] 12/21 confirmed-sp FOLLOW UP 12/23/2015 Patient Education: Patient Medication Summary Completed 12/23/2015 Referral: Tabitha Messer WPtel: [facility] [address] Spoke with Kayli at [facility] and gave her appt information Initiated 10/07/2015 Visit Plan: Start PT for ROM of neck Dis cussed milkshake in place of meal if does not eat at least 20% of meal--patient states she wants to lose weight and does not like the food served there See dermatology for removal of scalp lesion 09/23/2015 Appointment: Cherri Holguin WPtel: [address] [place], [place] [phone] 09/22/15 appt confirmed with Amber at [facility] FOLLOW UP 09/23/2015 Patient Education: Patient Medication Summary Completed 09/23/2015 Visit Plan: Stop miralax and senokot-s S tart dulcolax daily Patient asking for PT and OT again but admits they don't really help/she doesn't gain much from them 04/15/2015 Appointment: Cherri Holguin WPtel: [address] [place], [place] [phone] 04/11 confirmed with [facility] cn FOLLOW UP 04/15/2015 Patient Education: Patient Medication Summary Completed 04/15/2015 Visit Plan: Check CBC, CMP, TSH, free T4 , Vit D Continue current meds 01/14/2015 Appointment: Cherri Holguin WPtel: [address] [place], [place] [phone] AC[facility]NESS 01/14/2015 Patient Education: Patient Medication Summary Completed 01/14/2015 Visit Plan: Change to Senokot-S 2 po BID Add miralax Has been released by burn center for now 10/29/2014 Appointment: Cherri Holguin WPtel: [address] [place], [place] [phone] 10/28 with Madiha FOLLOW UP 10/29/2014 Patient Education: Patient Medication Summary Completed 10/29/2014 Visit Plan: Patient is wheelchair bound now Continue current meds Patient following with [facility] end of 08/20/2014 Appointment: Cherri Holguin WPtel: [address] [place] [address] MLP rescheduled due to cold weather 08/19 message with Madiha at [facility] FOLLOW U P 08/20/2014 Patient Education: Patient Medication Summary Completed 08/20/2014 Visit Plan: Patient is eating better--10 0% of meals and wants feeding tube out but waiting on swallow eval Following with burn center and doing dressing changes to left chest every 3 days Refuses flu and pneumonia shots Fwup 4mos if goes to [place] or 1mo if stays in [place] 06/04/2014 Appointment: Cherri Holguin WPtel: [address] [place], [place] [phone] FOLLOW UP 06/04/2014 Patient Education: Patient Medication Summary Completed 06/04/2014 Visit Plan: Patient sees burn center nex t week Explained importance of taking nutren routinely as needs nutrition Increase prilosec to 20mg po BID Smoking Cessation 05/06/2014 Appointment: Cherri Holguin WPtel: [address] [place], [place] [phone] 05/03 vm on patient phone 05/03 message with Maria L at [facility] Follow Up 05/06/2014 Patient Education: Patient Medication Summary Completed 05/06/2014 Visit Plan: Finish abx Brian wrap to left LE and elevate 08/07/2013 Appointment: Cher[facility] [address] [facility] [facility] Follow Up 07/10 Patient Education: Patient Medication Summary Completed 08/07/2013 Appointment: Cherri Holguin WPtel: [address] [place], [place] [id number] 07/18 appointment confirmed with patient 07/19 NO SHOW FOLLOW UP 07/19/2013 Visit Plan: Continue current meds Contin ue PT 05/23/2013 Appointment: Cherri Holguin WPtel: [address] [place], [place] [phone] 05/22 vm...appt confirmed FOLLOW UP 2012 Patient Education: Patient Medication Summary Completed 05/23/2013 Visit Plan: Long discussion about need f or 24hr care Pt wants to go home 04/25/2013 Appointment: Cherri Holguin WPtel: [address] [place], [place] [phone] Appt confirmed with Augusto at [facility] Follow Up 04/25/2013 Patient Education: Patient Medication Summary Completed 04/25/2013 Appointment: Cherri Holguin WPtel: [address] [place], [place] [phone] 04/20 message left at [facility] FOLLOW UP 04/23/2013 Visit Plan: Continue current meds 01/22/2013 Appointment: Cherri Holguin WPtel: [address] [place], [place] [phone] 01/22 vm left FOLLOW UP 01/22/2013 Patient Education: Patient Medication Summary Completed 01/22/2013 Appointment: Cherri Holguin WPtel: [address] [place], [place] [phone] 11/20 left message...patient called in a t 10:00am and said she was unable to get to her car. She rescheduled for 11/27 11am 11/24 left message 11/29 called to confirm, patient cancell ed due to no ride from care van. patient will call [facility] and see when they can bring her and then call us to schedule FOLLOW UP 11/30/2012 Visit Plan: Going to go home at the end of week with caregiver Continue current meds 10/18/2012 Appointment: Cherri Holguintel: [address] [place], [place] [phone] 10/17 appt confirmed with Reyna FOLLOW UP 10/18/2012 Patient Education: Patient Medication Summary Completed 10/18/2012 Visit Plan: Continue and finish PT Sultana bolton current meds Fwup October 19 or --pts 100 days is up October 21 09/25/2012 Appointment: Cherri Holguintel: [address] [place], [place] [phone] [place] worked in since jail just droppe d her off. She was on shedule at one point but showed it was cancelled WORK IN Appointment: Cherri Holguin WPtel: [address] [place], [place] [phone] 07/17 Cancelled 09/25 Appt - Patient has appointments on 07/08 & 07/27 FOLLOW UP 09/25/2012 Patient Education: Patient Medication Summary Completed 09/25/2012 Visit Plan: Continue current meds Pt wan ts to go home when her 100 days are up 08/24/2012 Appointment: Cherri Holguintel: [address] [place], [place] [phone] [place] FOLLOW UP 08/24/2012 Patient Education: Patient Medication Summary Completed 08/24/2012 Visit Plan: DC tramadol Repeat UA and ch edu UDS Start PT for neck Discussed neurology eval, but pt has been to several in past and even [facility] 07/27/2012 Appointment: Cherri Holguintel: [address] [place], [place] [phone] [place] FOLLOW UP 07/27/2012 Patient Education: Patient Medication Summary Completed 07/27/2012 Appointment: Cherri Holguin WPtel: [address] [place] [address] 07/17 - left message..07/17 left message with Antonella at [facility] pt has appt tomorrow and on I think the 07/18 appt was scheduled prior to hospitalization. 07/18 no showed. just entered jail so no show is forgiven FOLLOW UP 07/18/2012 Appointment: Tasneem Esquivel WPtel: [address] [place] [address] ACUTE ILLNESS 07/05/2012 Patient Education: Patient Medication Summary Completed 07/05/2012 Appointment: Cherri Holguin WPtel: [address] [place] [address] FOLLOW UP 05/29/2012 Patient Education: Patient Medication Summary Completed 05/29/2012 Appointment: Cherri Holguin WPtel: [address] [place] [address] FOLLOW UP 02/02/2012 Patient Education: Patient Medication Summary Completed 02/02/2012 Visit Plan: Continue current meds Check CBC, CMP, TSH, Free T4, B12 11/03/2011 Appointment: Cherri Holguin WPtel: [address] [place] [address] FOLLOW UP 11/03/2011 Patient Education: Patient Medication Summary Completed 11/03/2011 Visit Plan: Adderall refilled Continue c urrent meds 08/25/2011 Appointment: Cherri Holguin WPtel: [address] [place] [address] FOLLOW UP 08/25/2011 Patient Education: Patient Medication Summary Completed 08/25/2011 Appointment: Cherri Holguin WPtel: [address] [place] [address] Appointment was confirmed. FOLLOW UP 08/16 Visit Plan: Esther is eye doctor. Will u se eye drop.(Cipro as she claims allergy (nausea). Pt. is accompanied by "grounds keepers" from [facility]. Written instructions given for pt. to be seen in follow up by Esther. Written RX also given to pt. for cipro eye drops. Pt. is instructed that the RX has been electronically sent to [facility]. 05/27/2011 Appointment: Tasneem Esquivel WPtel: [address] [place] [address] ACUTE ILLNESS 05/27/2011 Patient Education: Patient Medication Summary Completed 05/27/2011 Visit Plan: Continue increased dose of A dderall 04/15/2011 Appointment: Cherri Holguin WPtel: [address] [place] [address] FOLLOW UP 04/15/2011 Patient Education: Patient Medication Summary Completed 04/15/2011 Appointment: Cherri Holguin WPtel: [address] [place] [address] [place] FOLLOW UP 03/22/2011 Patient Education: Patient Medication Summary Completed 03/22/2011 Appointment: Cherri Holguin WPtel: [address] [place] [address] FOLLOW UP 02/25/2011 Visit Plan: Trial of Wellbutrin XL 150mg q AM 02/22/2011 Appointment: Cherri Holguin WPtel: [address] [place], [place] [phone] [place] FOLLOW UP 02/22/2011 Patient Education: Patient Medication Summary Completed 02/22/2011 Visit Plan: Continue PT Add Cymbalta 30m g daily 01/26/2011 Appointment: Cherri Holguin WPtel: [address] [place] [address] [place] FOLLOW UP 01/26/2011 Patient Education: Patient Medication Summary Completed 01/26/2011 Visit Plan: Cont current meds and PT Exrenetta m for Power chair completed Adderall rx refilled 06/15/2010 Appointment: Cherri Holguin WPtel: [address] [place] [address] ESTABLISHED PATIENT 06/15/2010 Patient Education: Patient Medication Summary Completed 06/15/2010 Visit Plan: To rehab today for PT/OT--I will follow on rehab unit 05/04/2010 Appointment: Cherri Holguin WPtel: [phone] [id number] FOLLOW UP 05/04/2010 Patient Education: Patient Medication Summary Completed 05/04/2010 Visit Plan: Cont PT Cont Forteo Long dis cussion about living home--will discuss with PT when finishes this session 03/03/2010 Appointment: Cherri Holguin WPtel: [phone] [id number] FOLLOW UP 03/03/2010 Patient Education: Patient Medication Summary Completed 03/03/2010 Visit Plan: EGD by Dr. Dang Pt agrees to restart Forteo 10/20/2009 Appointment: Cherri Holguin WPtel: [phone] [facility] [place] FOLLOW UP 10/20/2009 Patient Education: Patient Medication Summary Completed 10/20/2009 Referral: Antonio Gandhi WPtel: [phone] [id number] [place] Referral Initiated Instructions Comment . Low-dose [...] to several in past and even [facility] . Continue current meds Check CBC, CMP, TSH, Free T4, B12 . Adderall refilled Continue current meds . 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 Will use eye bj p.(Cipro as she claims allergy (nausea). Pt. is accompanied by "grounds keepers" from [facility]. Written instructions given for pt. [...]
--- OUTSIDE RECORDS SUMMARY | 2020-03-05 20:48 | XMS REPORT | CCD ---
Author Author Rosario Holguin D.O. Organization [facility] Address [address] [place] [address] Phone Care Team Providers Care Parts Sales Manager Name Role Phone Cherri Holguin D.O., PP Unavailable CCM Unavailable Summary Purpose Interface Exchange Insurance Providers Payer name Policy type / Coverage type Covered republican ID Effective Begin Date Effective End Date WPS MEDICARE PART B [place] Medicare Part B [id number] Unknown AARP Medicare Part B [id number] Unknown Family History Family History data not found Social History Social History Element Codes Description Effective Dates Tobacco history SNOMED CT: 8308254 Former smoker 04/15/2015 Allergies, Adverse Reactions, Alerts [...] Instructions Tessalon Perles 100 mg capsule RxNorm: 419282 1 Capsule(s) Oral Q8H as needed 12/03/2019 No Stop Date Active glycerin (adult) rectal suppository RxNorm: 1 Cardenas ppository Rectal and Tuesday12/03/2019 No Stop Date Active cyanocobalamin (vit B-12) 1,000 mcg/mL injection solution Rx Norm: 970992 1 Milliliter(s) Intramuscular every 2 weeks 06/26/2019 09/24/2019 Inacti ve cyanocobalamin (vit B-12) 1,000 mcg/mL injection solution Rx Norm: 608135 1 Milliliter(s) Intramuscular every 2 weeks 06/26/2019 06/25/2019 Inacti ve bisacodyl 10 mg rectal suppository RxNorm: 819687 1 Sup pository Rectal QD as needed 05/10/2019 No Stop Date Active glycerin (adult) rectal suppository RxNorm: 3580235 1 Suppositor y RTL BIW 07/25/2018 12/02/2019 Inactive rabeprazole 20 mg tablet,delayed release RxNorm: 236390 1 Table t(s) PO QD 03/01/2018 05/29/2018 Inactive replaces lansoprazol e Adderall XR 10 mg capsule,extended release RxNorm: 228901 1 Cap teresa(s) PO QAM 10/20/2017 12/19/2017 Inactive Tessalon Perles 100 mg capsule RxNorm: 039567 1 Capsule (s) PO TID as needed for cough 09/16/2017 09/30/2019 Inactive Cymbalta 30 mg capsule,delayed release RxNorm: 865258 1 Capsule (s) PO QD 08/17/2017 12/02/2019 Inactive nystatin 100,000 unit/gram topical powder RxNorm: 113984 1 Appl ication TOP BID 08/16/2017 02/14/2018 Inactive Adderall XR 10 mg capsule,extended release RxNorm: 285085 1 Cap teresa(s) PO QAM 08/11/2017 09/09/2017 Inactive Adderall XR 10 mg capsule,extended release RxNorm: 851603 1 Cap teresa(s) PO QAM 08/04/2017 08/03/2017 Inactive Adderall XR 10 mg capsule,extended release RxNorm: 005254 1 Cap teresa(s) PO QAM 08/04/2017 08/10/2017 Inactive Bactrim DS 800 mg-160 mg tablet RxNorm: 411373 1 Tablet(s) PO BID 1 08/28/2016 07/07/2017 Inactive clindamycin 300 mg capsule RxNorm: 057563 2 Capsule(s) PO TID doses for today and tomorrow 11/30/2016 05/01/2017 Inactive ketoconazole 2 % shampoo RxNorm: 717278 1 Application TOP twice a week 09/14/2016 05/01/2017 Inactive hydrocodone 5 mg-acetaminophen 325 mg tablet RxNorm: 894919 1 Tablet(s) PO Q6H as needed for pain 07/12/2016 05/01/2017 Inactive Cipro 250 mg tablet RxNorm: 619934 1 Tablet(s) PO BID 09/29/201509/09 Inactive cefuroxime axetil 250 mg tablet RxNorm: 057203 1 Tablet(s) PO BID 0 09/10/2015 09/16/2015 Inactive Micro-K 8 mEq capsule,extended release RxNorm: 198090 1 Capsule (s) PO QD 08/20/2015 08/16/2017 Inactive Micro-K 8 mEq capsule,extended release RxNorm: 968487 1 Capsule (s) PO QD 08/20/2015 08/19/2015 Inactive Adderall XR 20 mg capsule,extended release RxNorm: 716287 1 Cap teresa(s) PO QAM 04/30/2015 02/11/2016 Inactive hydroxyzine HCl 25 mg tablet RxNorm: 937644 1 Tablet(s) PO Q6H as needed for itching/hives 04/02/2015 09/12/2016 Inactive Miralax 17 gram oral powder packet RxNorm: 422072 17 Gr am(s) PO BID for constipation 02/26/2015 02/11/2016 Inactive Adderall XR 20 mg capsule,extended release RxNorm: 592231 1 Cap teresa(s) PO QAM 07/09/2014 08/07/2014 Inactive Adderall 20 mg tablet RxNorm: 597774 2 Tablet(s) PO QD 02/04/201408/2013 Inactive [AttnRPh: Saving apply/adjudicate RxGRP: SG20 RxBIN:[id number] RxPCN: ID#:[id number]] triamcinolone acetonide 0.1 % topical cream RxNorm: 7968640 1 Application TOP BID to affected area as needed 12/12/2013 01/13/2015 Inactive [ AttnRPh: Saving apply/adjudicate RxGRP:SG20 RxBIN:[id number] RxPCN: ID#:[id number]] Adderall 20 mg tablet RxNorm: 636024 2 Tablet(s) PO QD 12/04/2013 Inactive [AttnRPh: Saving apply/adjudicate RxGRP: SG20 RxBIN:[id number] RxPCN: ID#:[id number]] Adderall 20 mg tablet RxNorm: 923376 2 Tablet(s) PO QD 12/03/2013 Inactive [AttnRPh: Saving apply/adjudicate RxGRP: SG20 RxBIN:[id number] RxPCN: ID#:[id number]] Adderall 20 mg tablet RxNorm: 885136 2 Tablet(s) PO QD 11/02/2013 Inactive Adderall 20 mg tablet RxNorm: 266511 2 Tablet(s) PO QD 10/01/2013 Inactive meloxicam 7.5 mg tablet RxNorm: 322408 1 Tablet(s) PO QD 09/24/2013 0 08/19/2014 Inactive lisinopril 20 mg tablet RxNorm: 996076 1 Tablet(s) PO QD 09/24/2013 0 08/19/2014 Inactive Protonix 40 mg tablet,delayed release RxNorm: 661899 1 Tablet(s ) PO QD 09/24/2013 08/19/2014 Inactive Adderall 20 mg tablet RxNorm: 554502 2 Tablet(s) PO QD 08/29/2013 Inactive Adderall 20 mg tablet RxNorm: 782610 2 Tablet(s) PO QD 08/02/2013 Inactive hydroxyzine HCl 25 mg tablet RxNorm: 431464 1 Tablet(s) PO Q6H as needed 06/29/2013 08/19/2014 Inactive Adderall 20 mg tablet RxNorm: 777081 2 Tablet(s) PO QD 05/22/2013 Inactive Protonix 40 mg tablet,delayed release RxNorm: 211867 1 Tablet(s ) PO QD 05/15/2013 09/11/2013 Inactive meloxicam 7.5 mg tablet RxNorm: 520934 1 Tablet(s) PO QD 05/15/2013 0 09/11/2013 Inactive lisinopril 20 mg tablet RxNorm: 587534 1 Tablet(s) PO QD 05/15/2013 0 09/11/2013 Inactive Adderall 20 mg tablet RxNorm: 240237 2 Tablet(s) PO QD 04/02/2013 No Stop Date Active Adderall 20 mg tablet RxNorm: 480626 2 Tablet(s) PO QD 02/27/2013 No Stop Date Active Adderall 20 mg tablet RxNorm: 865023 2 Tablet(s) PO QD 01/22/2013 No Stop Date Active Adderall 20 mg tablet RxNorm: 136806 2 Tablet(s) PO QD 12/28/2012 No Stop Date Active Adderall 20 mg tablet RxNorm: 949389 2 Tablet(s) PO QD 12/01/2012 No Stop Date Active Adderall 20 mg tablet RxNorm: 803396 2 Tablet(s) PO QD 11/01/2012 No Stop Date Active K-Dur 20 mEq tablet,extended release RxNorm: 686069 1 Tablet(s) PO QD 10/19/2012 11/26/2018 Inactive meloxicam 7.5 mg tablet RxNorm: 691507 1 Tablet(s) PO QD 10/19/2012 0 04/16/2013 Inactive Protonix 40 mg tablet,delayed release RxNorm: 374844 1 Tablet(s ) PO QD 10/19/2012 04/16/2013 Inactive lisinopril 20 mg tablet RxNorm: 235462 1 Tablet(s) PO QD 10/19/2012 0 04/16/2013 Inactive Cipro 500 mg tablet RxNorm: 512260 1 Tablet(s) PO BID 07/05/201211/2011 Inactive Adderall XR 20 mg capsule,extended release RxNorm: 015333 2 Cap teresa(s) PO QAM 06/12/2012 07/26/2012 Inactive Adderall XR 20 mg capsule,extended release RxNorm: 910550 2 Cap teresa(s) PO QAM 05/16/2012 06/11/2012 Inactive Adderall XR 20 mg capsule,extended release RxNorm: 359175 2 Cap teresa(s) PO QAM 04/21/2012 05/15/2012 Inactive Adderall XR 20 mg capsule,extended release RxNorm: 930800 2 Cap teresa(s) PO QAM 02/16/2012 03/16/2012 Inactive Enablex 15 mg 24 hr Tab RxNorm: 940879 1 Tablet(s) PO QPM repla mady Vesicare 02/07/2012 05/28/2012 Inactive Enablex 15 mg 24 hr Tab RxNorm: 469587 1 Tablet(s) PO QPM repla mady Vesicare 02/07/2012 08/04/2012 Inactive Protonix 40 mg Tab RxNorm: 580830 1 Tablet(s) PO QD 02/07/20122011 Inactive Protonix 40 mg Tab RxNorm: 699731 1 Tablet(s) PO QD 02/02/20122011 Inactive Enablex 15 mg 24 hr Tab RxNorm: 777492 1 Tablet(s) PO QPM repla mady Vesicare 02/02/2012 02/06/2012 Inactive Adderall XR 20 mg 24 hr Cap RxNorm: 300093 2 Capsule(s) PO QAM 01/0602/15/2012 Inactive Adderall XR 20 mg 24 hr Cap RxNorm: 571584 2 Capsule(s) PO QAM 12/0601/15/2012 Inactive Adderall XR 20 mg 24 hr Cap RxNorm: 249288 2 Capsule(s) PO QAM 11/0612/16/2011 Inactive Adderall XR 20 mg 24 hr Cap RxNorm: 497958 2 Capsule(s) PO QAM 10/0611/17/2011 Inactive Adderall XR 20 mg 24 hr Cap RxNorm: 589654 2 Capsule(s) PO QAM 09/0910/24/2011 Inactive Prevacid 30 mg Cap RxNorm: 398069 1 Capsule(s) PO QD 07/30/201109/27 Inactive Adderall XR 20 mg 24 hr Cap RxNorm: 653133 2 Capsule(s) PO QAM 07/0908/28/2011 Inactive Adderall XR 20 mg 24 hr Cap RxNorm: 135071 2 Capsule(s) PO QAM 06/0807/21/2011 Inactive ciprofloxacin 0.3 % Eye Drops RxNorm: 612500 2 Drop(s) OPH Q2H 05/0905/31/2011 Inactive Adderall XR 20 mg 24 hr Cap RxNorm: 267907 2 Capsule(s) PO QAM 05/08 No Stop Date Active Wellbutrin XL 150 mg 24 hr Tab RxNorm: 608240 1 Tablet(s) PO QAM 04/14/2011 Inactive Vesicare 10 mg Tab RxNorm: 696017 1 Tablet(s) PO QD 12/24/20102011 Inactive Vesicare 10 mg Tab RxNorm: 013817 1 Tablet(s) PO QD 12/21/20102018 Inactive Adderall XR 30 mg 24 hr Cap RxNorm: 627981 1 Capsule(s) PO QD 11/1712/16/2010 Inactive Vesicare 10 mg Tab RxNorm: 682997 1 Tablet(s) PO QD 09/21/20102010 Inactive Adderall XR 30 mg 24 hr Cap RxNorm: 075720 1 Capsule(s) PO 09/17/19 11 10/16/2010 Inactive Adderall XR 30 mg 24 hr Cap RxNorm: 626988 1 Capsule(s) PO QAM 07/0911/26/2018 Inactive Adderall XR 30 mg 24 hr Cap RxNorm: 938860 1 Capsule(s) PO QAM 07/0908/03/2010 Inactive Adderall XR 20 mg 24 hr Cap RxNorm: 816296 2 Capsule(s) PO QD 01/2602/02/2010 Inactive Adderall XR 20 mg 24 hr Cap RxNorm: 111962 1 Capsule(s) PO QD 01/2605/03/2010 Inactive Forteo 20 mcg/dose (600 mcg/2.4 mL) Sub-Q Pen Injector RxNorm: 1 561266 SQ 12/30/2009 01/25/2011 Inactive hyoscyamine 0.125 mg sublingual tablet RxNorm: 9352678 1 Tablet(s) SL Q4H as needed for excessive secretions No Start Date Active Senokot-S 8.6 mg-50 mg tablet RxNorm: 8879320 2 Tablet(s) PO BID No Start Date Active rabeprazole 20 mg tablet,delayed release RxNorm: 419465 1 Table t(s) PO QD No Start Date Active Micro-K 10 10 mEq capsule,extended release RxNorm: 553419 1 Cap teresa(s) PO QD No Start Date Active docusate sodium 100 mg tablet RxNorm: 6360882 1 Tablet(s) PO Q8H as needed No Start Date Active ondansetron HCl 4 mg tablet RxNorm: 133288 1 Tablet(s) PO Q4H a s needed No Start Date Active Vitamin D3 5,000 unit tablet RxNorm: 115736 1 Tablet(s) PO QD No Star t Date Active bisacodyl 5 mg tablet RxNorm: 507595 1 Tablet(s) PO BID as needed N o Start Date Active aspirin 81 mg tablet RxNorm: 873854 1 Tablet(s) PO QD No Start Date Active Multivitamin And Mineral oral RxNorm: oral No Start Date Active Benadryl 1 % topical cream RxNorm: 8751082 TOP as needed for hiv es No Start Date Active K-Dur 20 mEq tablet,extended release RxNorm: 915888 1 Tablet(s) PO QD No Start Date 08/19/2014 Inactive Colace 100 mg capsule RxNorm: 4855668 1 Capsule(s) PO BID No Start Date 01/19/2017 Inactive ketoconazole 2 % shampoo RxNorm: 692160 1 Application TOP twice a week No Start Date 09/13/2016 Inactive ibuprofen 600 mg tablet RxNorm: 650082 1 Tablet(s) PO Q6H as ne eded No Start Date 06/21/2018 Inactive Zaditor 0.025 % Eye Drops RxNorm: 563938 1 Drop(s) OPH BID No Start Date 05/28/2012 Inactive senna 8.6 mg tablet RxNorm: 807799 2 Tablet(s) PO BID No Start Date 0 02/11/2016 Inactive senna 8.6 mg tablet RxNorm: 941604 1 Tablet(s) PO BID No Start Date 0 02/11/2016 Inactive Amoxil 500 mg capsule RxNorm: 048913 1 Capsule(s) PO BID No Start D ate 05/01/2017 Inactive lisinopril 20 mg tablet RxNorm: 912460 1 Tablet(s) PO QD No Start D ate 10/18/2012 Inactive Prevacid 30 mg Capsule, delayed release RxNorm: 445984 1 Capsul e(s) PO QD No Start Date 02/01/2012 Inactive Senokot-S 8.6 mg-50 mg Tab RxNorm: 6692548 2 Tablet(s) PO QD PRN No Start Date 03/02/2010 Inactive Cymbalta 30 mg capsule,delayed release RxNorm: 224120 1 Capsule (s) PO QD No Start Date 08/16/2017 Inactive ketoconazole 2 % topical cream RxNorm: 537194 1 Applica tion TOP BID to scaly eyebrows No Start Date 05/01/2017 Inactive lorazepam 0.5 mg tablet RxNorm: 025709 1 Tablet(s) PO Q4H as ne eded No Start Date 06/21/2018 Inactive Vitamin C 500 mg tablet RxNorm: 242947 1 Tablet(s) PO QD No Start D ate 01/21/2013 Inactive albuterol sulfate 2.5 mg/3 mL (0.083 %) Neb Solution RxNorm: 673689 Milliliter(s) INH 1 vial in nebulizer every 4 hours as needed No Start Date 01/21/2013 Inactive Adderall XR 20 mg 24 hr Cap RxNorm: 837004 1 Capsule(s) PO QAM No S tart Date 01/25/2011 Inactive Xanax 0.25 mg Tab RxNorm: 257739 1/2 Tablet(s) PO BID PRN No Start Date 03/02/2010 Inactive Tylenol Extra Strength 500 mg Tab RxNorm: 963958 2 Tablet(s) PO PRN No Start Date 08/24/2011 Inactive Adderall 20 mg tablet RxNorm: 652403 2 Tablet(s) PO QD No Start Date 10/31/2012 Inactive bisacodyl 5 mg tablet,delayed release RxNorm: 135870 1 Tablet(s) PO Q12H as needed No Start Date 02/04/2019 Inactive Tessalon Perles 100 mg capsule RxNorm: 407731 1 Capsule (s) PO TID as needed for cough No Start Date 09/15/2017 Inactive Vitamin D3 1,000 unit tablet RxNorm: 936983 3 Tablet(s) PO QD No St art Date 02/22/2017 Inactive meloxicam 7.5 mg tablet RxNorm: 164219 1 Tablet(s) PO QD No Start D ate 10/18/2012 Inactive Bactroban 2 % topical ointment RxNorm: 029718 1 Application TOP QD No Start Date 12/11/2017 Inactive Toviaz 8 mg 24 hr Tab RxNorm: 929511 1 Tablet(s) PO QD No Start Date 09/21/2010 Inactive Prevacid 15 mg capsule,delayed release RxNorm: 774976 Capsule(s ) PO QD No Start Date 02/28/2018 Inactive K-Dur 20 mEq tablet,extended release RxNorm: 7319552 1 Tablet(s) PO QD No Start Date 10/18/2012 Inactive Adderall XR 20 mg 24 hr Cap RxNorm: 370020 2 Capsule(s) PO QAM No S tart Date 05/24/2011 Inactive Calcium with Vitamin D 600 mg-400 unit Tab RxNorm: 864406 1 Tab let(s) PO QD No Start Date 08/24/2011 Inactive Miralax 17 gram oral powder packet RxNorm: 961476 17 Gram(s) PO BID as needed No Start Date 11/26/2018 Inactive Zestril 10 mg Tab RxNorm: 952960 1 Tablet(s) PO QD No Start Date 10/06 Inactive baclofen 10 mg tablet RxNorm: 179967 1 Tablet(s) PO QHS No Start Da te 09/11/2015 Inactive Tums 500 Oral RxNorm: Oral No Start Date 01/13/2015 Inactive Senokot-S 8.6 mg-50 mg tablet RxNorm: 3793646 1 Tablet(s) PO BID No Start Date 11/26/2018 Inactive Prozac 10 mg Tab RxNorm: 738967 1 Capsule(s) PO QD No Start Date 10/06 Inactive Elavil 10 mg tablet RxNorm: 895473 1 Tablet(s) PO QHS No Start Date 0 12/12/2018 Inactive Dulcolax Stool Softener (docusate) 100 mg capsule RxNorm: 12 67420 1 Capsule(s) PO Q8H as needed No Start Date 01/19/2017 Inactive Adderall XR 30 mg 24 hr Cap RxNorm: 185483 1 Capsule(s) PO QAM No S tart Date 04/14/2011 Inactive Milk of Alexa-Genieara 15.25 % oral suspension RxNorm: oral No Start Date 11/26/2018 Inactive Tylenol 325 mg tablet RxNorm: 370021 2 Tablet(s) PO Q4H as needed N o Start Date 11/26/2018 Inactive Prilosec 20 mg capsule,delayed release RxNorm: 422417 1 Capsule (s) PO BID No Start Date 09/08/2014 Inactive Tylenol 8 Hour 650 mg tablet,extended release RxNorm: 464864 0 1 Tablet(s) PO Q4H as needed No Start Date 11/26/2018 Inactive Vitamin D3 2,000 unit tablet RxNorm: 762417 1 Tablet(s) PO QD No St art Date 02/22/2017 Inactive nystatin 100,000 unit/gram topical powder RxNorm: 188044 1 Appl ication TOP BID No Start Date 08/15/2017 Inactive morphine 20 mg/5 mL (4 mg/mL) oral solution RxNorm: 002932 .25 Milliliter(s) PO Q4H as needed No Start Date 09/24/2018 Inactive Forteo 20 mcg/dose (750 mcg/3 mL) Sub-Q Pen Injector RxNorm: 143 5115 SQ QD No Start Date 01/21/2010 Inactive ciprofloxacin 0.3 % Eye Drops RxNorm: 051788 2 Drop(s) OPH TID to affected eye No Start Date 08/23/2012 Inactive bisacodyl 5 mg tablet RxNorm: 564209 1 Tablet(s) PO BID No Start Da te 02/11/2016 Inactive Avosil 2 %-0.2 % topical ointment RxNorm: 1 Appl ication TOP Q8H as needed to burn sites No Start Date 11/26/2018 Inactive Milk of Magnesia 800 mg/5 mL oral suspension RxNorm: 440515 Milliliter(s) PO as needed No Start Date 06/20/2018 Inactive Atarax 25 mg tablet RxNorm: 192156 1 Tablet(s) PO Q4H prn itchi ng/hives No Start Date 08/24/2011 Inactive Adderall XR 30 mg 24 hr Cap RxNorm: 423198 1 Capsule(s) PO QAM No S tart Date 07/26/2010 Inactive Prevacid 30 mg Cap RxNorm: 465269 1 Capsule(s) PO QD No Start Date Inactive Vitamin C 500 mg tablet RxNorm: 335035 1 Tablet(s) PO BID No Start Date 07/11/2016 Inactive Vistaril 25 mg capsule RxNorm: 770166 1 Capsule(s) PO Q4H PRN No St art Date 03/02/2010 Inactive tramadol 50 mg tablet RxNorm: 890032 1 Tablet(s) PO TID as need ed for pain No Start Date 01/21/2013 Inactive Multivitamin & Mineral Formula tablet RxNorm: 1 Tablet(s) PO Q D No Start Date 06/22/2018 Inactive hydrocodone 5 mg-acetaminophen 325 mg tablet RxNorm: 409431 1 Tablet(s) PO Q4H as needed for pain No Start Date 06/24/2019 Inactive Multivitamin & Mineral Formula Oral RxNorm: Oral No Start Da te 03/02/2010 Inactive Miralax 17 gram oral powder packet RxNorm: 161846 17 Gr am(s) PO QPM for constipation No Start Date 02/25/2015 Inactive Percocet 5 mg-325 mg tablet RxNorm: 1941291 1-2 Tablet(s) PO Q4H as needed No Start Date 09/24/2018 Inactive triamcinolone acetonide 0.1 % topical cream RxNorm: 0124769 1 Application TOP TID to affected area as needed No Start Date 12/12/2013 Inactive rabeprazole 20 mg tablet,delayed release RxNorm: 083166 1 Table t(s) PO QD No Start Date 09/24/2018 Inactive Protonix 40 mg tablet,delayed release RxNorm: 551743 1 Tablet(s ) PO QD No Start Date 10/18/2012 Inactive Mobic 7.5 mg Tab RxNorm: 105427 1 Tablet(s) PO BID No Start Date 10/06 Inactive Sinemet CR 50 mg-200 mg Tab RxNorm: 204151 1 Tablet(s) PO QD No Sta rt Date 03/02/2010 Inactive Adderall XR 20 mg 24 hr Cap RxNorm: 019686 2 Capsule(s) PO QD No St art Date 02/02/2010 Inactive Medication Administered No Medication Administered data Immunizations No Immunization data Results Observation Observation Code Item Item Code Result Date S ervice Location COMPLETE BLOOD COUNT [id number] WBC 7.3 10e9/L 05/29/20 12 Unknown COMPLETE BLOOD COUNT [id number] RBC 5.20 10e12/L 2011 Unknown COMPLETE BLOOD COUNT [id number] HGB 15.3 g/dL 2 Unknown COMPLETE BLOOD COUNT [id number] HCT DET 45.9 % 2 Unknown COMPLETE BLOOD COUNT [id number] MCV 88.3 fL 2 Unknown COMPLETE BLOOD COUNT [id number] MCH 29.4 pg 2 Unknown COMPLETE BLOOD COUNT [id number] MCHC 33.3 g/dL 2 Unknown COMPLETE BLOOD COUNT [id number] PLT 341 10e9/L 05/29/20 12 Unknown COMPLETE BLOOD COUNT [id number] MPV 10.1 fL 2 Unknown COMPLETE BLOOD COUNT [id number] ASHLEY % 63.2 % 2 Unknown COMPLETE BLOOD COUNT [id number] LY % 27.4 % 2 Unknown COMPLETE BLOOD COUNT [id number] MON % 7.6 % 2 Unknown COMPLETE BLOOD COUNT [id number] EOS % 1.5 % 2 Unknown COMPLETE BLOOD COUNT [id number] BASO % 0.3 % 2 Unknown COMPLETE BLOOD COUNT [id number] RDW 13.6 % 2 Unknown COMPLETE BLOOD COUNT [id number] ABS ASHLEY 4.61 10e9/L 012 Unknown COMPLETE BLOOD COUNT [id number] ABS LYMPH 2.00 10e9/L 012 Unknown COMPLETE BLOOD COUNT [id number] ABS MONO 0.55 10e9/L 012 Unknown COMPLETE BLOOD COUNT [id number] ABS EOS 0.11 10e9/L 012 Unknown COMPLETE BLOOD COUNT [id number] ABS BASO 0.02 10e9/L 012 Unknown COMPLETE BLOOD COUNT [id number] RDW-SD 43.5 fL 2 Unknown THYROID STIMULATING HORMONE 48798 TSH 1.487 uIU/ML 05/29/2012 Unknown GFR CALC [id number] GFR AA >60 ML/MIN 05/29/2012 Unknown GFR CALC [id number] GFR NON-AA >60 ML/MIN 05/29/2012 Unknown FREE T4 97568 FREE T4 1.20 NG/DL 05/29/2012 Unknown COMPREHENSIVE METABOLIC 72866 AST 17 U/L 2011 Unknown COMPREHENSIVE METABOLIC 80395 ALT 16 IU/L 2011 Unknown COMPREHENSIVE METABOLIC 41424 BUN 9 MG/DL 2011 Unknown COMPREHENSIVE METABOLIC 84254 ALBUMIN 4.1 GM/DL 2011 Unknown COMPREHENSIVE METABOLIC 37275 CHLORIDE 106 MMOL/L 05/29 Unknown COMPREHENSIVE METABOLIC 86834 BILI TOT 0.4 MG/DL 2011 Unknown COMPREHENSIVE METABOLIC 50283 ALK PHOS 87 U/L 2011 Unknown COMPREHENSIVE METABOLIC 03811 SODIUM 142 MMOL/L 05/29 Unknown COMPREHENSIVE METABOLIC 11074 CREATININE 0.79 MG/DL 05/09 Unknown COMPREHENSIVE METABOLIC 78263 CALCIUM 9.2 MG/DL 2011 Unknown COMPREHENSIVE METABOLIC 30881 POTASSIUM 3.6 MMOL/L 05/29 Unknown COMPREHENSIVE METABOLIC 83488 PROT TOT 6.5 GM/DL 2011 Unknown COMPREHENSIVE METABOLIC 94530 Glucose 78 MG/DL 2011 Unknown COMPREHENSIVE METABOLIC 56102 BICARB 27 MMOL/L 2011 Unknown COMPREHENSIVE METABOLIC 40974 ANION GAP 9 MEQ/L 2011 Unknown Procedures Procedure Codes Date PPPS, subseq visit CPT-4: G0439 08/03/2018 PPPS, subseq visit CPT-4: G0439 07/12/2016 CUR TOBACCO NON-USER CPT-4: G8457 04/15/2015 URINALYSIS NONAUTO W/O SCOPE CPT-4: 45319 07/05/2012 URINE CULTURE/ COLONY COUNT CPT-4: 39833 07/05/2012 PRESCRIP TRANSMIT VIA ERX SY CPT-4: G8553 07/05/2012 ROUTINE VENIPUNCTURE CPT-4: 10616 05/29/2012 ASSAY OF FREE THYROXINE CPT-4: 01441 05/29/2012 ASSAY THYROID STIM HORMONE CPT-4: 46448 05/29/2012 COMPREHEN METABOLIC PANEL CPT-4: 96941 05/29/2012 COMPLETE CBC W/AUTO DIFF WBC CPT-4: 75093 05/29/2012 PRESCRIP TRANSMIT VIA ERX SY CPT-4: G8553 05/29/2012 PRESCRIP TRANSMIT VIA ERX SY CPT-4: G8553 02/02/2012 PRESCRIP TRANSMIT VIA ERX SY CPT-4: G8553 05/27/2011 PRESCRIP TRANSMIT VIA ERX SY CPT-4: G8553 02/22/2011 SERVICE REQUIRED FOR PMD CPT-4: G0372 06/15/2010 ROUTINE VENIPUNCTURE CPT-4: 59731 10/20/2009 Vital Signs Date Vital 12/03/2019 Blood [...] 1: 114/66 Code: 8480-6 BMI: 25.8 Code: 24640-3 Heart Rate 1: 72 bpm Height: 5'2" [...] 1: 122/80 Code: 8480-6 BMI: 24.9 Code: 18554-0 Heart Rate 1: 100 bpm Height: 5'2" Respiratory Rate: 20 bpm Temperature: 37 .1 (C) / 98.8 (F) Weight: 136 lbs 11/03/2011 Blood Pressure 1: 104/60 Code: 8480-6 BMI: 24.1 Code: 65897-2 Heart Rate 1: 88 bpm Height: 5'2" Respiratory Rate: 20 bpm Temperature: 36 .6 (C) / 97.8 (F) Weight: 132 lbs 08/25/2011 Blood Pressure 1: 128/86 Code: 8480-6 BMI: 24.9 Code: 50171-2 Heart Rate 1: 76 bpm Height: 5'2" Respiratory Rate: 20 bpm Temperature: 36 .2 (C) / 97.2 (F) Weight: 136 lbs 05/27/2011 Blood Pressure 1: 130/90 Code: 8480-6 BMI: 25.1 Code: 07592-3 Heart Rate 1: 68 bpm Height: 5'2" [...] 1: 114/70 Code: 8480-6 BMI: 22.9 Code: 45615-9 Heart Rate 1: 92 bpm Height: 5'2" [...] of left upper extremity[ICD10: S41.112A] Cherri MACHUCA [facility] [employer] [employer] CPT-4: 20982 12/10/2019 ([id number]) OFFICE/OUTPATIENT VISIT EST Diagnosis: Constipation[ICD10: K59.00] Diagnosis: Sacral decubitus ulcer[ICD10: L89.159] Cherri OLSON [employer] CPT-4: 53205 12/03/2019 ([id number]) OFFICE/OUTPATIENT VISIT EST 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] Diagnosis: Muscle weakness (generalized)[ICD10: M62.81] Cherri MACHUCA [employer] CPT-4: 22868 10/01/2019 ([id number]) OFFICE/OUTPATIENT VISIT EST Diagnosis: Personal history of malignant neoplasm of brain[ICD10: Z85.841] Diagnosis: Muscle weakness (generalized)[ICD10: M62.81] Diagnosis: Hemiplegia, unspecified affecting left dominant side[ICD10: G81.92] Diagnosis: Contracture, 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] Cherri Ezio [facility] CPT-4: 72224 06/25/2019 ([id number]) OFFICE/OUTPATIENT VISIT EST Diagnosis: Attention and concentration deficit[ICD10: R41.840] Diagnosis: Abnormal weight loss[ICD10: R63.4] Cherri [facility] CPT-4: 41534 02/05/2019 ([id number]) OFFICE/OUTPATIENT VISIT EST Diagnosis: Attention and concentration deficit[ICD10: R41.840] Cherri [facility] CPT-4: 60222 12/13/2018 ([id number]) OFFICE/OUTPATIENT VISIT EST Diagnosis: Laceration without foreign body of left upper arm, sequela[ICD10: S41.112S] Diagnosis: Other fatigue[ICD10: R53.83] Cherri HOLGUIN DO [facility] CPT-4: 53171 11/27/2018 ([id number]) OFFICE/OUTPATIENT VISIT EST Diagnosis: Gastro-esophageal reflux disease without esophagitis[ICD10: K21.9] Diagnosis: Contracture, 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] Diagnosis: Slow transit constipation[ICD10: K59.01] Cherri HOLGUIN DO [facility] CPT-4: 30306 09/25/2018 ([id number]) OFFICE/OUTPATIENT VISIT EST Diagnosis: Gastro-esophageal reflux disease without esophagitis[ICD10: K21.9] Diagnosis: Muscle weakness (generalized)[ICD10: M62.81] Maxine HOLGUIN DO [facility] CPT-4: 05879 06/22/2018 ([id number]) OFFICE/OUTPATIENT VISIT EST Diagnosis: Gastro-esophageal reflux disease without esophagitis[ICD10: K21.9] Cherri HOLGUIN DO [facility] CPT-4: 91130 04/06/2018 ([id number]) OFFICE/OUTPATIENT VISIT EST Diagnosis: Gastro-esophageal reflux disease without esophagitis[ICD10: K21.9] Maxine HOLGUIN DO [facility] CPT-4: 04563 03/06/2018 ([id number]) OFFICE/OUTPATIENT VISIT EST Diagnosis: 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] Diagnosis: Gastro-esophageal reflux disease without esophagitis[ICD10: K21.9] Diagnosis: Slow transit constipation[ICD10: K59.01] Diagnosis: Primary insomnia[ICD10: F51.01] Cherri HOLGUIN phorus [facility] CPT-4: 88919 02/15/2018 ([id number]) OFFICE/OUTPATIENT VISIT EST Diagnosis: Muscle weakness (generalized)[ICD10: M62.81] Diagnosis: Gastro-esophageal reflux disease without esophagitis[ICD10: K21.9] Cherri HOLGUIN phorus [facility] CPT-4: 29878 12/12/2017 ([id number]) OFFICE/OUTPATIENT VISIT EST Diagnosis: Nondisplaced fracture of medial malleolus of left tibia, subsequent encounter for closed fracture with delayed healing[ICD10: S82.55XG] Cherri HOLGUIN phorus [facility] CPT-4: 69904 10/10/2017 OFFICE/OUTPATIENT VISIT EST Diagnosis: Acute upper respiratory infection, unspecified[ICD10: J06.9] Maxine HOLGUIN phorus [facility] CPT-4: 46214 09/19/2017 ([id number]) OFFICE/OUTPATIENT VISIT EST Diagnosis: Muscle weakness (generalized)[ICD10: M62.81] Diagnosis: Other specified disorders of the skin and subcutaneous tissue[ICD10: L98.8] Cherri HOLGUIN phorus [facility] CPT-4: 49049 08/04/2017 ([id number]) OFFICE/OUTPATIENT VISIT EST Diagnosis: Unspecified open wound of abdominal wall, left upper quadrant with penetration into peritoneal cavity, sequela[ICD10: S31.601S] Diagnosis: Muscle weakness (generalized)[ICD10: M62.81] Diagnosis: Personal history of malignant neoplasm of brain[ICD10: Z85.841] Cherri HOLGUIN phorus [facility] CPT-4: 00854 07/12/2017 ([id number]) OFFICE/OUTPATIENT VISIT EST Diagnosis: Non-pressure chronic ulcer of skin of other sites with unspecified severity[ICD10: L98.499] Diagnosis: Tinea cruris[ICD10: B35.6] Cherri RUSHING DO [facility] CPT-4: 09022 05/30/2017 ([id number]) OFFICE/OUTPATIENT VISIT EST Diagnosis: Cellulitis of abdominal wall[ICD10: L03.311] Diagnosis: Cellulitis of chest wall[ICD10: L03.313] Cherri HOLGUIN DO [facility] CPT-4: 65601 05/02/2017 ([id number]) OFFICE/OUTPATIENT VISIT EST Diagnosis: Cellulitis of chest wall[ICD10: L03.313] Diagnosis: Muscle weakness (generalized)[ICD10: M62.81] Cherri HOLGUIN DO [facility] CPT-4: 78231 02/28/2017 ([id number]) OFFICE/OUTPATIENT VISIT EST Diagnosis: Cellulitis of abdominal wall[ICD10: L03.311] Cherri HOLGUIN [facility] CPT-4: 91113 12/06/2016 OFFICE/OUTPATIENT VISIT EST Diagnosis: Cutaneous abscess of abdominal wall[ICD10: L02.211] Diagnosis: Cellulitis of abdominal wall[ICD10: L03.311] Cherri HOLGUIN DO [facility] CPT-4: 74165 12/02/2016 ([id number]) OFFICE/OUTPATIENT VISIT EST Diagnosis: Cellulitis of abdominal wall[ICD10: L03.311] Diagnosis: Cutaneous abscess of abdominal wall[ICD10: L02.211] Cherri HOLGUIN DO [facility] CPT-4: 45502 12/01/2016 ([id number]) OFFICE/OUTPATIENT VISIT EST Diagnosis: Cutaneous abscess of abdominal wall[ICD10: L02.211] Diagnosis: Cellulitis of abdominal wall[ICD10: L03.311] Cherri HOLGUIN DO [facility] CPT-4: 36398 11/30/2016 ([id number]) OFFICE/OUTPATIENT VISIT EST Diagnosis: Muscle weakness (generalized)[ICD10: M62.81] Diagnosis: Slow transit constipation[ICD10: K59.01] Diagnosis: 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, 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] Cherri HOLGUIN DO [facility] CPT-4: 46934 10/26/2016 ([id number]) OFFICE/OUTPATIENT VISIT EST Diagnosis: Other seborrheic dermatitis[ICD10: L21.8] Cherri HOLGUIN DO [facility] CPT-4: 21885 09/13/2016 ([id number]) OFFICE/OUTPATIENT VISIT EST Diagnosis: Contracture, 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] Diagnosis: Nicotine dependence, cigarettes, uncomplicated[ICD10: F17.210] Diagnosis: Hemiplegia, unspecified affecting unspecified side[ICD10: G81.90] Diagnosis: Muscle weakness (generalized)[ICD10: M62.81] Cherri HOLGUIN DO [facility] CPT-4: 97560 05/11/2016 ([id number]) OFFICE/OUTPATIENT VISIT EST Diagnosis: Muscle weakness (generalized)[ICD10: M62.81] Diagnosis: Abnormal weight loss[ICD10: R63.4] Cherri HOLGUIN phorus [facility] CPT-4: 12322 12/23/2015 ([id number]) OFFICE/OUTPATIENT VISIT EST Diagnosis: Torticollis[ICD10: M43.6] Diagnosis: Cervicalgia[ICD10: M54.2] Diagnosis: Basal cell carcinoma of skin, unspecified[ICD10: C44.91] Cherri HOLGUIN [facility] CPT-4: 33515 09/23/2015 ([id number]) OFFICE/OUTPATIENT VISIT EST Diagnosis: Constipation[ICD9: 564.00] Diagnosis: MUSCLE WEAKNESS-GENERAL[ICD9: 728.87] Cherri SANCHEZDELFINA RYLIE Martha HOLGUIN phorus [facility] CPT-4: 68682 04/15/2015 ([id number]) OFFICE/OUTPATIENT VISIT EST Diagnosis: MALAISE AND FATIGUE[ICD9: 780.79] Diagnosis: 3RD DEGREE BURN[ICD9: 949.3] Cherricesar JOHNSTONLINE Martha HOLGUIN phorus [facility] CPT-4: 22847 01/14/2015 ([id number]) OFFICE/OUTPATIENT VISIT EST Diagnosis: Constipation[ICD9: 564.00] Diagnosis: MUSCLE WEAKNESS-GENERAL[ICD9: 728.87] Diagnosis: 3RD DEGREE BURN[ICD9: 949.3] Cherri HOLGUIN DO [facility] CPT-4: 75185 10/29/2014 ([id number]) OFFICE/OUTPATIENT VISIT EST Diagnosis: Weakness generalized[ICD9: 780.79] Diagnosis: 3RD DEGREE BURN[ICD9: 949.3] Cherri HOLGUIN DO [facility] CPT-4: 79683 08/20/2014 ([id number]) OFFICE/OUTPATIENT VISIT EST Diagnosis: 3RD DEGREE BURN[ICD9: 949.3] Diagnosis: DYSPHAGIA NEC[ICD9: 787.29] Cherri MICHAELS [facility] CPT-4: 91104 06/04/2014 ([id number]) OFFICE/OUTPATIENT VISIT EST Diagnosis: 3RD DEGREE BURN[ICD9: 949.3] Diagnosis: Complication of skin graft[ICD9: 996.52] Diagnosis: TOBACCO USE DISORDER[ICD9: 305.1] [facility]: 06995 05/06/2014 ([id number]) OFFICE/OUTPATIENT VISIT EST Diagnosis: CELLULITIS[ICD9: 682.9] Cherri BRUNSON [facility] CPT-4: 68266 08/07/2013 ([id number]) OFFICE/OUTPATIENT VISIT EST Diagnosis: MUSCLE WEAKNESS-GENERAL[ICD9: 728.87] Diagnosis: MALAISE AND FATIGUE[ICD9: 780.79] Diagnosis: ABNORMALITY OF GAIT[ICD9: 781.2] Cherri HOLGUIN [facility] CPT-4: 35267 05/23/2013 ([id number]) OFFICE/OUTPATIENT VISIT EST Diagnosis: MALAISE AND FATIGUE[ICD9: 780.79] Diagnosis: MUSCLE WEAKNESS-GENERAL[ICD9: 728.87] Diagnosis: HEMIPLEGIANOS SIDE NOS[ICD9: 342.90] Diagnosis: 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] Cherri HOLGUIN [facility] CPT-4: 92437 04/25/2013 ([id number]) OFFICE/OUTPATIENT VISIT EST Diagnosis: MUSCLE WEAKNESS-GENERAL[ICD9: 728.87] Diagnosis: ABNORMALITY OF GAIT[ICD9: 781.2] Diagnosis: MALAISE AND FATIGUE[ICD9: 780.79] [facility]: 82140 01/22/2013 OFFICE/OUTPATIENT VISIT EST Diagnosis: MALAISE AND FATIGUE[ICD9: 780.79] Diagnosis: MUSCLE WEAKNESS-GENERAL[ICD9: 728.87] Diagnosis: HEMIPLEGIANOS SIDE NOS[ICD9: 342.90] Diagnosis: ABNORMALITY OF GAIT[ICD9: 781.2] [facility]: 14423 10/18/2012 OFFICE/OUTPATIENT VISIT EST Diagnosis: ABNORMALITY OF GAIT[ICD9: 781.2] Diagnosis: MALAISE AND FATIGUE[ICD9: 780.79] Diagnosis: MUSCLE WEAKNESS-GENERAL[ICD9: 728.87] [facility]: 44120 09/25/2012 OFFICE/OUTPATIENT VISIT EST Diagnosis: CERVICALGIA[ICD9: 723.1] Diagnosis: ABNORMALITY OF GAIT[ICD9: 781.2] Diagnosis: MUSCLE WEAKNESS-GENERAL[ICD9: 728.87] [facility]: 83231 08/24/2012 ([id number]) OFFICE/OUTPATIENT VISIT EST Diagnosis: URINARY TRACT INFECTION[ICD9: 599.0] Diagnosis: Altered mental state[ICD9: 780.97] Diagnosis: MUSCLE WEAKNESS-GENERAL[ICD9: 728.87] Diagnosis: HEMIPLEGIANOS SIDE NOS[ICD9: 342.90] Diagnosis: Cervicalgia[ICD9: 723.1] Cherri Pappasramuxuan CARIAS [facility] CPT-4: 52758 07/27/2012 OFFICE/OUTPATIENT VISIT EST Diagnosis: URINARY TRACT INFECTION[ICD9: 599.0] Diagnosis: Weakness generalized[ICD9: 780.79] Diagnosis: FEBRILE ILLNESS[ICD9: 780.60] Diagnosis: Vision disturbance[ICD9: 368.9] Tasneem HOLGUIN DO [facility] CPT-4: 59568 07/05/2012 OFFICE/OUTPATIENT VISIT EST Diagnosis: CONJUNCTIVITIS NOS[ICD9: 372.30] Diagnosis: MUSCLE WEAKNESS-GENERAL[ICD9: 728.87] Diagnosis: HEMIPLEGIANOS SIDE NOS[ICD9: 342.90] Diagnosis: ABNORMALITY OF GAIT[ICD9: 781.2] Cherri HOLGUIN phorus [facility] CPT-4: 03272 05/29/2012 ([id number]) OFFICE/OUTPATIENT VISIT EST Diagnosis: MUSCLE WEAKNESS-GENERAL[ICD9: 728.87] Diagnosis: HEMIPLEGIANOS SIDE NOS[ICD9: 342.90] Diagnosis: ABNORMALITY OF GAIT[ICD9: 781.2] Diagnosis: DYSPEPSIA[ICD9: 536.8] Diagnosis: GERD[ICD9: 530.81] Cherri HOLGUIN phorus [facility] CPT-4: 70291 02/02/2012 ([id number]) OFFICE/OUTPATIENT VISIT EST Diagnosis: MUSCLE WEAKNESS-GENERAL[ICD9: 728.87] Diagnosis: ABNORMALITY OF GAIT[ICD9: 781.2] Diagnosis: GERD[ICD9: 530.81] Cherri HOLGUIN phorus [facility] CPT-4: 24501 11/03/2011 OFFICE/OUTPATIENT VISIT EST Diagnosis: MUSCLE WEAKNESS-GENERAL[ICD9: 728.87] Diagnosis: ABNORMALITY OF GAIT[ICD9: 781.2] Diagnosis: VOMITING ALONE[ICD9: 787.03] Diagnosis: GERD[ICD9: 530.81] Cherri HOLGUIN phorus [facility] CPT-4: 55988 08/25/2011 OFFICE/OUTPATIENT VISIT EST Diagnosis: CONJUNCTIVITIS NOS[ICD9: 372.30] Cherri HOLGUIN phorus [facility] CPT-4: 31737 05/27/2011 OFFICE/OUTPATIENT VISIT EST Diagnosis: MUSCLE WEAKNESS-GENERAL[ICD9: 728.87] Diagnosis: ABNORMALITY OF GAIT[ICD9: 781.2] Cherri HOLGUIN phorus [facility] CPT-4: 12980 04/15/2011 OFFICE/OUTPATIENT VISIT EST Diagnosis: MALAISE AND FATIGUE[ICD9: 780.79] Diagnosis: MUSCLE WEAKNESS-GENERAL[ICD9: 728.87] Diagnosis: DEPRESSIVE DISORDER NEC[ICD9: 311] Diagnosis: ABNORMALITY OF GAIT[ICD9: 781.2] Cherri Mianrl CHERRI Thomas ORENDER DO [facility] CPT-4: 23253 03/22/2011 OFFICE/OUTPATIENT VISIT EST Cherri Thomas ORE NDER DO [facility] CPT- 4: 47246 02/22/2011 ([id number]) OFFICE/OUTPATIENT VISIT EST Cherri Oreramuxuan MELO SBelkis ORENDER DO [facility] CPT-4: 23274 01/26/2011 ([id number]) OFFICE/OUTPATIENT VISIT, EST Cherricrystal DENNEY SBelkis ORENDER DO [facility] CPT-4: 54212 06/15/2010 ([id number]) OFFICE/OUTPATIENT VISIT, EST Cherri Mianrl DANIEL DENNEY S. ORENDER DO [facility] CPT-4: 89151 05/04/2010 ([id number]) OFFICE/OUTPATIENT VISIT, EST Cherri DENNEY SBelkis ORENDER DO [facility] CPT-4: 20919 03/03/2010 ([id number]) OFFICE/OUTPATIENT VISIT, EST Cherri DENNEY S. ORENDER DO [facility] CPT-4: 53539 10/20/2009 Plan of Care Planned Activity Notes Codes Status Date Visit Diagnosis Plan: Left arm cellulitis Discussion: Doxy.dc video visit done with nurse at [place] Start Keflex Continue with clear tegaderm dressing and brian wrap and ice Notify if any worsening ICD-9 : 682.3 ICD-10 : L03.114 12/10/2019 App[facility]ment: [phone] [facility] [facility]2019 Visit Diagnosis Plan: Constipation Discussion: Doxy.me video with DC nurse done Changing to bisacodyl suppository ICD-9 : 564.00 ICD-10 : K59.00 12/03/2019 Visit Diagnosis Plan: Sacral decubitus ulcer Discussio n: Wound Care seeing this week Follow Up: 2 months ICD-9 : 707.03 ICD-10 : L89.159 12/03/2019 Appointment: Cherri Holguintel: [address] [place], [place] [phone] [place] [employer] 12/03/2019 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 FOLLOW UP 06/25/2019 [...] ICD-10 : R63.4 02/05/2019 Appointment: Cherri Holguintel: [address] [place], [place] [phone] [place] Confirmed with aNra Hankins 02/02 @ 11:07 am FOL LOW UP 02/05/2019 Appointment: Cherri Holguintel: [address] [place], [place] [phone] [place] NO SHOW 01/24/2019 Visit Diagnosis Plan: Attention and concentration defi cit Discussion: Trial of strattera 10mg daily for 1 week then 25mg daily Recheck 6 weeks Stimulants have caused weight loss in past as patient is also poor, picky eater so with the stimulants her appetite worsens even more ICD-9 : 799.51 ICD-10 : R41.840 12/13/2018 Appointment: Cherri Holguintel: [address] [place], [place] [phone] [place] confirmed with Morena FOLLOW UP 12/13/2018 [...] R53.83 11/27/2018 Appointment: Cherri Holguin WPtel: [address] [place], [place] [phone] [place] confirmed with Karlee FOLLOW UP 11/27/2018 [...] : K59.01 09/25/2018 Appointment: Cherri Holguintel: [address] [place], [place] [phone] [place] FOLLOW UP 09/25/2018 Visit Diagnosis Plan: [...] : Z12.11 08/03/2018 Appointment: Maxine Glasgow [address] [facility] Annual Well Visit 08/03/2018 Visit Diagnosis Plan: [...] : K21.9 06/22/2018 [facility]ment[facility] [facility] 06/22/2018 Visit Diagnosis Plan: Gastro-esophageal reflux disease without esophagitis Discussion: Continue aciphex at 20m po daily Recheck 2mos ICD-9 : 530.81 ICD-10 : K21.9 04/06/2018 Appointment: Cherri Holguintel: [address] [place], [place] [phone] FOLLOW UP 04/06/2018 Patient Education: Patient Medication Summary Completed 04/06/2018 Appointment: Cherri Holguintel: [phone] [facility] [place] RESCHEDULED 03/07/2018 Visit Diagnosis Plan: Gastro-esophageal reflux disease without esophagitis Discussion: patient had aciphex and prevacid on med list. order written out on patient's list to only give the aciphex as prescribed and not both. follow up in one month to assess medication efficacy and constipation. ICD-9 : 530.81 ICD-10 : K21.9 03/06/2018 Appointment: Maxine Glasgow [address] [place], [place] [phone] FOLLOW UP 03/06/2018 Patient Education: Patient Medication [...] F51.01 02/15/2018 Appointment: Cherri Holguin WPtel: [address] [place], [place] [phone] FOLLOW UP 02/15/2018 Patient Education: Patient Medication Summary Completed 02/15/2018 Appointment: Cherri Holguin WPtel: [facility] [facility], stating that the patient is [...] : M62.81 12/12/2017 Appointment: Cherri Holguin WPtel: [address] [place] [address] FOLLOW UP 12/12/2017 Patient Education: Patient Medication Summary Completed 12/12/2017 Visit Diagnosis Plan: Nondisplaced fract ure of medial malleolus of left tibia, subsequent encounter for closed fracture with delayed healing Discussion: Add miacalcin nasal spray for next 2mos Fwup with ortho Follow Up: 2 months ICD-9 : V54.16 ICD-10 : S82.55XG 10/10/2017 Appointment: Cherri Holguin WPtel: [address] [place] [address] FOLLOW UP 10/10/2017 Patient Education: Patient Medication Summary Completed 10/10/2017 Appointment: Cherri Holguin WPtel: [address] [place] [address] [place] RESCHEDULED 10/04/2017 Referral: Alvarado Mercado WPtel: [address] [address] [place] Referral Initiated 10/04/2017 Visit Diagnosis Plan: Acute upper respiratory infectio n, unspecified Discussion: continue with chika ragland as needed. increase fluids. notify if worsening symptoms including shortness of breath or fever. call or rtc later this week if no improvement. instructed patient to perform deep breathing exercises at home. ICD-9 : 465.9 ICD-10 : J06.9 09/19/2017 Appointment: Maxine Glasgow [address] [place] [address] ACUTE ILLNESS 09/19/2017 Patient Education: Patient Medication Summary Completed 09/19/2017 Appointment: Cherri Holguin WPtel: [address] [place] [address] [place] CANCELED 08/16/2017 Visit Diagnosis Plan: Muscle [...] : L98.8 08/04/2017 Appointment: Cherri Holguin WPtel: [address] [place] [id number] FOLLOW UP 08/04/2017 Patient Education: Patient Medication [...] Z85.841 07/12/2017 Appointment: Cherri Holguin WPtel: [address] [place], [place] [phone] [facility] Follow Up 07/12/2017 Patient Education: Patient Medication [...] B35.6 05/30/2017 Appointment: Cherri Holguin WPtel: [address] [place], [place] [phone] [place] FOLLOW UP 05/30/2017 Patient Education: Patient Medication Summary Completed 05/30/2017 Visit Diagnosis Plan: Cellulitis of abdominal wall Dis cussion: Finish keflex Referral to wound care ICD-9 : 682.2 ICD-10 : L03.311 05/02/2017 Appointment: Cherri Holguin WPtel: [address] [place], [place] [phone] [place] FOLLOW UP 05/02/2017 Patient Education: Patient Medication Summary Completed 05/02/2017 Referral: Remigio Valdes WPtel: [address] [place], [place] [phone] [place] Referral Initiated 04/05/2017 Visit Diagnosis Plan: Cellulitis of chest wall Discuss ion: Keflex x1 week Continue daily dressing changes ICD-9 : 682.2 ICD-10 : L03.313 02/28/2017 Visit Diagnosis Plan: Muscle weakness (generalized) Di scussion: Stable Follow Up: 2 months ICD-9 : 728.87 ICD-10 : M62.81 02/28/2017 Appointment: Cherri Holguin WPtel: [address] [place], [place] [phone] [place] 02/24 confirmed~sl FOLLOW UP 02/28/2017 Patient Education: Patient Medication Summary Completed 02/28/2017 Visit Diagnosis Plan: Cellulitis of abdominal wall Dis cussion: Healing and improving so will finish all of clindamycin and monitor wounds for any worsening or recurrence ICD-9 : 682.2 ICD-10 : L03.311 12/06/2016 Appointment: Cherri Holguin WPtel: [address] [place], [place] [phone] [place] WORK IN 12/06/2016 Patient Education: Patient Medication Summary Completed 12/06/2016 Visit Diagnosis Plan: Cutaneous abscess of abdominal w all Discussion: Continue clindamycin and dressing changes To ER this weekend if worsens Fwup with me in 4 days for recheck ICD-9 : 682.2 ICD-10 : L02.211 12/02/2016 Appointment: Cherri Holguin WPtel: [address] [place] [id number] [place] FOLLOW UP 12/02/2016 Patient Education: Patient [...] : L02.211 12/01/2016 Appointment: Cherri Holguin WPtel: [address] [place] [phone] WORK [place] 12/01/2016 Patient Education: Patient Medication Summary Completed 12/01/2016 Visit Diagnosis Plan: Cutaneous abscess of abdominal w all Discussion: Copious amounts of pus expressed until bloody discharge Start clindamycin Recheck tomorrow Erythema outline marked Follow Up: 1 days ICD-9 : 682.2 ICD-10 : L02.211 11/30/2016 Appointment: Cherri Holguin WPtel: [address] [place] [phone] 11/29 confirmed`sl FOLLOW UP 11/30/2016 Patient Education: Patient Medication Summary Completed 11/30/2016 Appointment: Cherri Holguintel: [address] [place] [phone] 11/10 scalp looks ok will discuss at [...] K59.01 10/26/2016 Appointment: Cherri Holguin WPtel: [address] [place], [place] [phone] ACUTE ILLNESS 10/26/2016 Patient Education: Patient Medication Summary Completed 10/26/2016 Patient Education: Patient Medication Summary Completed 10/21/2016 Care Plan: CT HEAD/BRAIN W/O DYE LOINC : 57223-0 Pending 10/21/2016 Visit Diagnosis Plan: Other seborrheic dermatitis Disc ussion: Topical ketoconazole shampoo alternating with selsun blue Follow Up: 2 months ICD-9 : 706.3 ICD-10 : L21.8 09/13/2016 Appointment: Cherri Holguin WPtel: [address] [place], [place] [phone] 09/09 confirm`sl FOLLOW UP 09/13/2016 Patient Education: Patient Medication Summary Completed 09/13/2016 Appointment: Cherri Holguin WPtel: [address] [place], [place] [phone] [place] CANCELED 07/13/2016 Visit Plan: Low-dose CT scan-45 PPD of C hest Check hemoccult Discussed updated CT of head to recheck meningioma Zostavax vaccine Will obtain last colonoscopy results Update lab 07/12/2016 Appointment: Cherri Holguin WPtel: [address] [place], [place] [phone] [place] 07/08 confirmed~sl Annual Well Visit 07/12/2016 Patient Education: Patient Medication Summary Completed 07/12/2016 Visit Plan: Gets teeth extracted next mo nth then getting fitted for dentures so some of poor appetite is due to inability to eat certain things Continue current meds Defers flu shot 05/11/2016 Appointment: Cherri Holguin WPtel: [address] [place], [place] [phone] 05/10 confirmed~sl FOLLOW UP 05/11/2016 Patient Education: Patient Medication Summary Completed 05/11/2016 Visit Plan: Discussed nutrition and poss ible shakes as supplement until gets teeth completely pulled and fitted for full dentures Continue current meds Did have right scalp lesion removed 12/23/2015 Appointment: Cherri Holguin WPtel: [address] [place] [phone] 12/21 confirmed-sp FOLLOW UP 12/23/2015 Patient Education: Patient Medication Summary Completed 12/23/2015 Referral: Tabitha Messer WPtel: [place] [facility] [address] Spoke with Kayli at [facility] and gave her appt information Initiated 10/07/2015 Visit Plan: Start PT for ROM of neck Dis cussed milkshake in place of meal if does not eat at least 20% of meal--patient states she wants to lose weight and does not like the food served there See dermatology for removal of scalp lesion 09/23/2015 Appointment: Cherri Holguin WPtel: [address] [place], [place] [phone] 09/22/15 appt confirmed with Amber at [facility] FOLLOW UP 09/23/2015 Patient Education: Patient Medication Summary Completed 09/23/2015 Visit Plan: Stop miralax and senokot-s S tart dulcolax daily Patient asking for PT and OT again but admits they don't really help/she doesn't gain much from them 04/15/2015 Appointment: Cherri Holguin WPtel: [address] [place], [place] [phone] 04/11 confirmed with [facility] cn FOLLOW UP 04/15/2015 Patient Education: Patient Medication Summary Completed 04/15/2015 Visit Plan: Check CBC, CMP, TSH, free T4 , Vit D Continue current meds 01/14/2015 Appointment: Cherri Holguin WPtel: [address] [place], [place] [phone] [facility] ACUTE ILLNESS 01/14/2015 Patient Education: Patient Medication Summary Completed 01/14/2015 Visit Plan: Change to Senokot-S 2 po BID Add miralax Has been released by burn center for now 10/29/2014 Appointment: Cherri Holguin WPtel: [address] [place], [place] [phone] 10/28 with Madiha FOLLOW UP 10/29/2014 Patient Education: Patient Medication Summary Completed 10/29/2014 Visit Plan: Patient is wheelchair bound now Continue current meds Patient following with [facility] end of 08/20/2014 Appointment: Cherri Holguin WPtel: [address] [place] [address] MLP rescheduled due to cold weather 08/19 message with Madiha at [facility] FOLLOW U P 08/20/2014 Patient Education: Patient Medication Summary Completed 08/20/2014 Visit Plan: Patient is eating better--10 0% of meals and wants feeding tube out but waiting on swallow eval Following with burn center and doing dressing changes to left chest every 3 days Refuses flu and pneumonia shots Fwup 4mos if goes to [place] or 1mo if stays in [place] 06/04/2014 Appointment: Cherri Holguin WPtel: [address] [place], [place] [phone] FOLLOW UP 06/04/2014 Patient Education: Patient Medication Summary Completed 06/04/2014 Visit Plan: Patient sees burn center nex t week Explained importance of taking nutren routinely as needs nutrition Increase prilosec to 20mg po BID Smoking Cessation 05/06/2014 Appointment: Cherri Holguin WPtel: [address] [place], [place] [phone] 05/03 vm on patient phone 05/03 message with Maria L at [facility] Follow Up 05/06/2014 Patient Education: Patient Medication Summary Completed 05/06/2014 Visit Plan: Finish abx Brian wrap to left LE and elevate 08/07/2013 Appointment: [phone] [facility] [facility] Follow Up 07/10 Patient Education: Patient Medication Summary Completed 08/07/2013 Appointment: Cherri Holguin WPtel: [address] [place] [phone] 07/18 appointment confirmed with patient 07/19 NO SHOW FOLLOW UP 07/19/2013 Visit Plan: Continue current meds Contin ue PT 05/23/2013 Appointment: Cherri Holguin WPtel: [address] [place], [place] [phone] 05/22 vm...appt confirmed FOLLOW UP 2012 Patient Education: Patient Medication Summary Completed 05/23/2013 Visit Plan: Long discussion about need f or 24hr care Pt wants to go home 04/25/2013 Appointment: Cherri Holguin WPtel: [address] [place], [place] [phone] Appt confirmed with Augusto at [facility] Follow Up 04/25/2013 Patient Education: Patient Medication Summary Completed 04/25/2013 Appointment: Cherri Holguin WPtel: [address] [place], [place] [phone] 04/20 message left at [facility] FOLLOW UP 04/23/2013 Visit Plan: Continue current meds 01/22/2013 Appointment: Cherri Holguin WPtel: [address] [place], [place] [phone] 01/22 vm left FOLLOW UP 01/22/2013 Patient Education: Patient Medication Summary Completed 01/22/2013 Appointment: Cherri Holguin WPtel: [address] [place], [place] [phone] 11/20 left message...patient called in a t 10:00am and said she was unable to get to her car. She rescheduled for 11/27 11am 11/24 left message 11/29 called to confirm, patient cancell ed due to no ride from care van. patient will [facility] and see when they can bring her and then call us to schedule FOLLOW UP 11/30/2012 Visit Plan: Going to go home at the end of week with caregiver Continue current meds 10/18/2012 Appointment: Cherri Holguintel: [address] [place], [place] [phone] 10/17 appt confirmed with Reyna FOLLOW UP 10/18/2012 Patient Education: Patient Medication Summary Completed 10/18/2012 Visit Plan: Continue and finish PT Sultana bolton current meds Fwup October 19 or --pts 100 days is up October 21 09/25/2012 Appointment: Cherri Holguintel: [address] [place], [place] [phone] [place] worked in since [facility] just droppe d her off. She was on shedule at one point but showed it was cancelled WORK IN Appointment: Cherri Holguin WPtel: [address] [place], [place] [phone] 07/17 Cancelled 09/25 Appt - Patient has appointments on 07/08 & 07/27 FOLLOW UP 09/25/2012 Patient Education: Patient Medication Summary Completed 09/25/2012 Visit Plan: Continue current meds Pt wan ts to go home when her 100 days are up 08/24/2012 Appointment: Cherri Holguintel: [address] [place], [place] [phone] [place] FOLLOW UP 08/24/2012 Patient Education: Patient Medication Summary Completed 08/24/2012 Visit Plan: DC tramadol Repeat UA and ch edu UDS Start PT for neck Discussed neurology eval, but pt has been to several in past and even [facility] 07/27/2012 Appointment: Cherri Holguintel: [address] [place], [place] [phone] [place] FOLLOW UP 07/27/2012 Patient Education: Patient Medication Summary Completed 07/27/2012 Appointment: Cherri Holguin WPtel: [address] [place] [address] 07/17 - left message..07/17 left message with Antonella at [facility] pt has appt tomorrow and on I think the 07/18 appt was scheduled prior to hospitalization. 07/18 no showed. just entered [facility] so no show is forgiven FOLLOW UP 07/18/2012 Appointment: Tasneem Esquivel WPtel: [address] [place] [address] ACUTE ILLNESS 07/05/2012 Patient Education: Patient Medication Summary Completed 07/05/2012 Appointment: Cherri Holguin WPtel: [address] [place] [address] FOLLOW UP 05/29/2012 Patient Education: Patient Medication Summary Completed 05/29/2012 Appointment: Cherri Holguin WPtel: [address] [place] [address] FOLLOW UP 02/02/2012 Patient Education: Patient Medication Summary Completed 02/02/2012 Visit Plan: Continue current meds Check CBC, CMP, TSH, Free T4, B12 11/03/2011 Appointment: Cherri Holguin WPtel: [address] [place] [address] FOLLOW UP 11/03/2011 Patient Education: Patient Medication Summary Completed 11/03/2011 Visit Plan: Adderall refilled Continue c urrent meds 08/25/2011 Appointment: Cherri Holguin WPtel: [address] [place] [address] FOLLOW UP 08/25/2011 Patient Education: Patient Medication Summary Completed 08/25/2011 Appointment: Cherri Holguin WPtel: [address] [place] [address] Appointment was confirmed. FOLLOW UP 08/16 Visit Plan: Esther is eye doctor. Will u se eye drop.(Cipro as she claims allergy (nausea). Pt. is accompanied by "grounds keepers" from [facility]. Written instructions given for pt. to be seen in follow up by Esther. Written RX also given to pt. for cipro eye drops. Pt. is instructed that the RX has been electronically sent to [facility]. 05/27/2011 Appointment: Tasneem Esquivel WPtel: [address] [place] [address] ACUTE ILLNESS 05/27/2011 Patient Education: Patient Medication Summary Completed 05/27/2011 Visit Plan: Continue increased dose of A dderall 04/15/2011 Appointment: Cherri Holguin WPtel: [address] [place] [address] FOLLOW UP 04/15/2011 Patient Education: Patient Medication Summary Completed 04/15/2011 Appointment: Cherri Holguin WPtel: [address] [place] [address] [place] FOLLOW UP 03/22/2011 Patient Education: Patient Medication Summary Completed 03/22/2011 Appointment: Cherri Holguin WPtel: [address] [place] [address] FOLLOW UP 02/25/2011 Visit Plan: Trial of Wellbutrin XL 150mg q AM 02/22/2011 Appointment: Cherri Holguin WPtel: [address] [place], [place] [phone] [place] FOLLOW UP 02/22/2011 Patient Education: Patient Medication Summary Completed 02/22/2011 Visit Plan: Continue PT Add Cymbalta 30m g daily 01/26/2011 Appointment: Cherri Holguin WPtel: [address] [place] [address] [place] FOLLOW UP 01/26/2011 Patient Education: Patient Medication Summary Completed 01/26/2011 Visit Plan: Cont current meds and PT Exrenetta m for Power chair completed Adderall rx refilled 06/15/2010 Appointment: Cherri Holguin WPtel: [address] [place] [address] ESTABLISHED PATIENT 06/15/2010 Patient Education: Patient Medication Summary Completed 06/15/2010 Visit Plan: To rehab today for PT/OT--I will follow on rehab unit 05/04/2010 Appointment: Cherri Holguin WPtel: [phone] [facility] FOLLOW UP 05/04/2010 Patient Education: Patient Medication Summary Completed 05/04/2010 Visit Plan: Cont PT Cont Forteo Long dis cussion about living home--will discuss with PT when finishes this session 03/03/2010 Appointment: Cherri Holguin WPtel: [phone] [facility] FOLLOW UP 03/03/2010 Patient Education: Patient Medication Summary Completed 03/03/2010 Visit Plan: EGD by Dr. Dang Pt agrees to restart Forteo 10/20/2009 Appointment: Cherri Holguin WPtel: [phone] [facility] [place] FOLLOW UP 10/20/2009 Patient Education: Patient Medication Summary Completed 10/20/2009 Referral: Antonio Gandhi WPtel: [phone] [id number] [place] Referral Initiated Instructions Comment . Low-dose [...] Pt. is accompanied by "grounds keepers" from [employer] [facility]. Written instructions given for pt. [...]
--- OUTSIDE RECORDS SUMMARY | 2020-03-05 20:48 | XMS REPORT | CCD ---
Author Author Rosario Holguin D.O. Organization [facility] Address [address] [place] [address] Phone Care Team Providers Care Data Integration Architect Name Role Phone Cherri Holguin D.O., PP Unavailable CCM Unavailable Summary Purpose Interface Exchange Insurance Providers Payer name Policy type / Coverage type Covered constitution party ID Effective Begin Date Effective End Date [employer] MEDICARE PART B [place] Medicare Part B [id number] Unknown AARP Medicare Part B [id number] Unknown Family History Family History data not found Social History Social History Element Codes Description Effective Dates Tobacco history SNOMED CT: 2513704 Former smoker 04/15/2015 Allergies, Adverse Reactions, Alerts Substance Reaction Codes Entered Date Inactivated Date Status _ Unknown 03/03/2010 No Inactive Date Active * NO KNOWN FOOD ALLERGIES Unknown 10/20/2009 No Inactiv e Date Active _ Unknown 10/20/2009 No Inactive Date Active Erythromycin nausea, _ Unknown 10/20/2009 No Inactive Date Active Problems Condition Codes Effective Dates Condition Status Constipation ICD-9: 564.00 ICD-10: K59.00 12/03/2019 Active [...] Instructions Tessalon Perles 100 mg capsule RxNorm: 552444 1 Capsule(s) Oral Q8H as needed 12/03/2019 No Stop Date Active glycerin (adult) rectal suppository RxNorm: 1 Cardenas ppository Rectal and Tuesday12/03/2019 No Stop Date Active cyanocobalamin (vit B-12) 1,000 mcg/mL injection solution Rx Norm: 460613 1 Milliliter(s) Intramuscular every 2 weeks 06/26/2019 09/24/2019 Inacti ve cyanocobalamin (vit B-12) 1,000 mcg/mL injection solution Rx Norm: 928995 1 Milliliter(s) Intramuscular every 2 weeks 06/26/2019 06/25/2019 Inacti ve bisacodyl 10 mg rectal suppository RxNorm: 837620 1 Sup pository Rectal QD as needed 05/10/2019 No Stop Date Active glycerin (adult) rectal suppository RxNorm: 2969103 1 Suppositor y RTL BIW 07/25/2018 12/02/2019 Inactive rabeprazole 20 mg tablet,delayed release RxNorm: 549883 1 Table t(s) PO QD 03/01/2018 05/29/2018 Inactive replaces lansoprazol e Adderall XR 10 mg capsule,extended release RxNorm: 479152 1 Cap teresa(s) PO QAM 10/20/2017 12/19/2017 Inactive Tessalon Perles 100 mg capsule RxNorm: 632425 1 Capsule (s) PO TID as needed for cough 09/16/2017 09/30/2019 Inactive Cymbalta 30 mg capsule,delayed release RxNorm: 904623 1 Capsule (s) PO QD 08/17/2017 12/02/2019 Inactive nystatin 100,000 unit/gram topical powder RxNorm: 942366 1 Appl ication TOP BID 08/16/2017 02/14/2018 Inactive Adderall XR 10 mg capsule,extended release RxNorm: 768576 1 Cap teresa(s) PO QAM 08/11/2017 09/09/2017 Inactive Adderall XR 10 mg capsule,extended release RxNorm: 893358 1 Cap teresa(s) PO QAM 08/04/2017 08/03/2017 Inactive Adderall XR 10 mg capsule,extended release RxNorm: 133621 1 Cap teresa(s) PO QAM 08/04/2017 08/10/2017 Inactive Bactrim DS 800 mg-160 mg tablet RxNorm: 482913 1 Tablet(s) PO BID 1 08/28/2016 07/07/2017 Inactive clindamycin 300 mg capsule RxNorm: 826841 2 Capsule(s) PO TID doses for today and tomorrow 11/30/2016 05/01/2017 Inactive ketoconazole 2 % shampoo RxNorm: 955502 1 Application TOP twice a week 09/14/2016 05/01/2017 Inactive hydrocodone 5 mg-acetaminophen 325 mg tablet RxNorm: 095673 1 Tablet(s) PO Q6H as needed for pain 07/12/2016 05/01/2017 Inactive Cipro 250 mg tablet RxNorm: 345575 1 Tablet(s) PO BID 09/29/201509/09 Inactive cefuroxime axetil 250 mg tablet RxNorm: 623350 1 Tablet(s) PO BID 0 09/10/2015 09/16/2015 Inactive Micro-K 8 mEq capsule,extended release RxNorm: 558923 1 Capsule (s) PO QD 08/20/2015 08/16/2017 Inactive Micro-K 8 mEq capsule,extended release RxNorm: 682529 1 Capsule (s) PO QD 08/20/2015 08/19/2015 Inactive Adderall XR 20 mg capsule,extended release RxNorm: 707500 1 Cap teresa(s) PO QAM 04/30/2015 02/11/2016 Inactive hydroxyzine HCl 25 mg tablet RxNorm: 276052 1 Tablet(s) PO Q6H as needed for itching/hives 04/02/2015 09/12/2016 Inactive Miralax 17 gram oral powder packet RxNorm: 286457 17 Gr am(s) PO BID for constipation 02/26/2015 02/11/2016 Inactive Adderall XR 20 mg capsule,extended release RxNorm: 313127 1 Cap teresa(s) PO QAM 07/09/2014 08/07/2014 Inactive Adderall 20 mg tablet RxNorm: 087097 2 Tablet(s) PO QD 02/04/201408/2013 Inactive [AttnRPh: Saving apply/adjudicate RxGRP: SG20 RxBIN:[id number] RxPCN: ID#:[id number]] triamcinolone acetonide 0.1 % topical cream RxNorm: 5129947 1 Application TOP BID to affected area as needed 12/12/2013 01/13/2015 Inactive [ AttnRPh: Saving apply/adjudicate RxGRP:SG20 RxBIN:[id number] RxPCN: ID#:[id number]] Adderall 20 mg tablet RxNorm: 858235 2 Tablet(s) PO QD 12/04/2013 Inactive [AttnRPh: Saving apply/adjudicate RxGRP: SG20 RxBIN:[id number] RxPCN: ID#:[id number]] Adderall 20 mg tablet RxNorm: 191334 2 Tablet(s) PO QD 12/03/2013 Inactive [AttnRPh: Saving apply/adjudicate RxGRP: SG20 RxBIN:[id number] RxPCN: ID#:[id number]] Adderall 20 mg tablet RxNorm: 313482 2 Tablet(s) PO QD 11/02/2013 Inactive Adderall 20 mg tablet RxNorm: 920885 2 Tablet(s) PO QD 10/01/2013 Inactive meloxicam 7.5 mg tablet RxNorm: 701177 1 Tablet(s) PO QD 09/24/2013 0 08/19/2014 Inactive lisinopril 20 mg tablet RxNorm: 410853 1 Tablet(s) PO QD 09/24/2013 0 08/19/2014 Inactive Protonix 40 mg tablet,delayed release RxNorm: 142993 1 Tablet(s ) PO QD 09/24/2013 08/19/2014 Inactive Adderall 20 mg tablet RxNorm: 763806 2 Tablet(s) PO QD 08/29/2013 Inactive Adderall 20 mg tablet RxNorm: 631683 2 Tablet(s) PO QD 08/02/2013 Inactive hydroxyzine HCl 25 mg tablet RxNorm: 504183 1 Tablet(s) PO Q6H as needed 06/29/2013 08/19/2014 Inactive Adderall 20 mg tablet RxNorm: 087312 2 Tablet(s) PO QD 05/22/2013 Inactive Protonix 40 mg tablet,delayed release RxNorm: 823733 1 Tablet(s ) PO QD 05/15/2013 09/11/2013 Inactive meloxicam 7.5 mg tablet RxNorm: 286416 1 Tablet(s) PO QD 05/15/2013 0 09/11/2013 Inactive lisinopril 20 mg tablet RxNorm: 507425 1 Tablet(s) PO QD 05/15/2013 0 09/11/2013 Inactive Adderall 20 mg tablet RxNorm: 058468 2 Tablet(s) PO QD 04/02/2013 No Stop Date Active Adderall 20 mg tablet RxNorm: 707193 2 Tablet(s) PO QD 02/27/2013 No Stop Date Active Adderall 20 mg tablet RxNorm: 754393 2 Tablet(s) PO QD 01/22/2013 No Stop Date Active Adderall 20 mg tablet RxNorm: 048213 2 Tablet(s) PO QD 12/28/2012 No Stop Date Active Adderall 20 mg tablet RxNorm: 739807 2 Tablet(s) PO QD 12/01/2012 No Stop Date Active Adderall 20 mg tablet RxNorm: 736389 2 Tablet(s) PO QD 11/01/2012 No Stop Date Active K-Dur 20 mEq tablet,extended release RxNorm: 235321 1 Tablet(s) PO QD 10/19/2012 11/26/2018 Inactive meloxicam 7.5 mg tablet RxNorm: 070920 1 Tablet(s) PO QD 10/19/2012 0 04/16/2013 Inactive Protonix 40 mg tablet,delayed release RxNorm: 959867 1 Tablet(s ) PO QD 10/19/2012 04/16/2013 Inactive lisinopril 20 mg tablet RxNorm: 036887 1 Tablet(s) PO QD 10/19/2012 0 04/16/2013 Inactive Cipro 500 mg tablet RxNorm: 349474 1 Tablet(s) PO BID 07/05/201211/2011 Inactive Adderall XR 20 mg capsule,extended release RxNorm: 883271 2 Cap teresa(s) PO QAM 06/12/2012 07/26/2012 Inactive Adderall XR 20 mg capsule,extended release RxNorm: 847743 2 Cap teresa(s) PO QAM 05/16/2012 06/11/2012 Inactive Adderall XR 20 mg capsule,extended release RxNorm: 488254 2 Cap teresa(s) PO QAM 04/21/2012 05/15/2012 Inactive Adderall XR 20 mg capsule,extended release RxNorm: 515118 2 Cap teresa(s) PO QAM 02/16/2012 03/16/2012 Inactive Enablex 15 mg 24 hr Tab RxNorm: 258207 1 Tablet(s) PO QPM repla mady Vesicare 02/07/2012 05/28/2012 Inactive Enablex 15 mg 24 hr Tab RxNorm: 374720 1 Tablet(s) PO QPM repla mady Vesicare 02/07/2012 08/04/2012 Inactive Protonix 40 mg Tab RxNorm: 763643 1 Tablet(s) PO QD 02/07/20122011 Inactive Protonix 40 mg Tab RxNorm: 373607 1 Tablet(s) PO QD 02/02/20122011 Inactive Enablex 15 mg 24 hr Tab RxNorm: 225916 1 Tablet(s) PO QPM repla mady Vesicare 02/02/2012 02/06/2012 Inactive Adderall XR 20 mg 24 hr Cap RxNorm: 839151 2 Capsule(s) PO QAM 01/0602/15/2012 Inactive Adderall XR 20 mg 24 hr Cap RxNorm: 495836 2 Capsule(s) PO QAM 12/0601/15/2012 Inactive Adderall XR 20 mg 24 hr Cap RxNorm: 595813 2 Capsule(s) PO QAM 11/0612/16/2011 Inactive Adderall XR 20 mg 24 hr Cap RxNorm: 428476 2 Capsule(s) PO QAM 10/0611/17/2011 Inactive Adderall XR 20 mg 24 hr Cap RxNorm: 681350 2 Capsule(s) PO QAM 09/0910/24/2011 Inactive Prevacid 30 mg Cap RxNorm: 752968 1 Capsule(s) PO QD 07/30/201109/27 Inactive Adderall XR 20 mg 24 hr Cap RxNorm: 254983 2 Capsule(s) PO QAM 07/0908/28/2011 Inactive Adderall XR 20 mg 24 hr Cap RxNorm: 930937 2 Capsule(s) PO QAM 06/0807/21/2011 Inactive ciprofloxacin 0.3 % Eye Drops RxNorm: 074077 2 Drop(s) OPH Q2H 05/0905/31/2011 Inactive Adderall XR 20 mg 24 hr Cap RxNorm: 212571 2 Capsule(s) PO QAM 05/08 No Stop Date Active Wellbutrin XL 150 mg 24 hr Tab RxNorm: 202886 1 Tablet(s) PO QAM 04/14/2011 Inactive Vesicare 10 mg Tab RxNorm: 985857 1 Tablet(s) PO QD 12/24/20102011 Inactive Vesicare 10 mg Tab RxNorm: 350673 1 Tablet(s) PO QD 12/21/20102018 Inactive Adderall XR 30 mg 24 hr Cap RxNorm: 312344 1 Capsule(s) PO QD 11/1712/16/2010 Inactive Vesicare 10 mg Tab RxNorm: 320758 1 Tablet(s) PO QD 09/21/20102010 Inactive Adderall XR 30 mg 24 hr Cap RxNorm: 978656 1 Capsule(s) PO 09/17/19 11 10/16/2010 Inactive Adderall XR 30 mg 24 hr Cap RxNorm: 048833 1 Capsule(s) PO QAM 07/0911/26/2018 Inactive Adderall XR 30 mg 24 hr Cap RxNorm: 452197 1 Capsule(s) PO QAM 07/0908/03/2010 Inactive Adderall XR 20 mg 24 hr Cap RxNorm: 021417 2 Capsule(s) PO QD 01/2602/02/2010 Inactive Adderall XR 20 mg 24 hr Cap RxNorm: 933598 1 Capsule(s) PO QD 01/2605/03/2010 Inactive Forteo 20 mcg/dose (600 mcg/2.4 mL) Sub-Q Pen Injector RxNorm: 1 864462 SQ 12/30/2009 01/25/2011 Inactive hyoscyamine 0.125 mg sublingual tablet RxNorm: 7835311 1 Tablet(s) SL Q4H as needed for excessive secretions No Start Date Active Senokot-S 8.6 mg-50 mg tablet RxNorm: 6042041 2 Tablet(s) PO BID No Start Date Active rabeprazole 20 mg tablet,delayed release RxNorm: 661358 1 Table t(s) PO QD No Start Date Active Micro-K 10 10 mEq capsule,extended release RxNorm: 578173 1 Cap teresa(s) PO QD No Start Date Active docusate sodium 100 mg tablet RxNorm: 9922641 1 Tablet(s) PO Q8H as needed No Start Date Active ondansetron HCl 4 mg tablet RxNorm: 148983 1 Tablet(s) PO Q4H a s needed No Start Date Active Vitamin D3 5,000 unit tablet RxNorm: 110242 1 Tablet(s) PO QD No Star t Date Active bisacodyl 5 mg tablet RxNorm: 062534 1 Tablet(s) PO BID as needed N o Start Date Active aspirin 81 mg tablet RxNorm: 924816 1 Tablet(s) PO QD No Start Date Active Multivitamin And Mineral oral RxNorm: oral No Start Date Active Benadryl 1 % topical cream RxNorm: 9626813 TOP as needed for hiv es No Start Date Active K-Dur 20 mEq tablet,extended release RxNorm: 247393 1 Tablet(s) PO QD No Start Date 08/19/2014 Inactive Colace 100 mg capsule RxNorm: 7170594 1 Capsule(s) PO BID No Start Date 01/19/2017 Inactive ketoconazole 2 % shampoo RxNorm: 607290 1 Application TOP twice a week No Start Date 09/13/2016 Inactive ibuprofen 600 mg tablet RxNorm: 069105 1 Tablet(s) PO Q6H as ne eded No Start Date 06/21/2018 Inactive Zaditor 0.025 % Eye Drops RxNorm: 124147 1 Drop(s) OPH BID No Start Date 05/28/2012 Inactive senna 8.6 mg tablet RxNorm: 721114 2 Tablet(s) PO BID No Start Date 0 02/11/2016 Inactive senna 8.6 mg tablet RxNorm: 848993 1 Tablet(s) PO BID No Start Date 0 02/11/2016 Inactive Amoxil 500 mg capsule RxNorm: 429556 1 Capsule(s) PO BID No Start D ate 05/01/2017 Inactive lisinopril 20 mg tablet RxNorm: 620676 1 Tablet(s) PO QD No Start D ate 10/18/2012 Inactive Prevacid 30 mg Capsule, delayed release RxNorm: 250644 1 Capsul e(s) PO QD No Start Date 02/01/2012 Inactive Senokot-S 8.6 mg-50 mg Tab RxNorm: 0784669 2 Tablet(s) PO QD PRN No Start Date 03/02/2010 Inactive Cymbalta 30 mg capsule,delayed release RxNorm: 111744 1 Capsule (s) PO QD No Start Date 08/16/2017 Inactive ketoconazole 2 % topical cream RxNorm: 038862 1 Applica tion TOP BID to scaly eyebrows No Start Date 05/01/2017 Inactive lorazepam 0.5 mg tablet RxNorm: 201855 1 Tablet(s) PO Q4H as ne eded No Start Date 06/21/2018 Inactive Vitamin C 500 mg tablet RxNorm: 080912 1 Tablet(s) PO QD No Start D ate 01/21/2013 Inactive albuterol sulfate 2.5 mg/3 mL (0.083 %) Neb Solution RxNorm: 308167 Milliliter(s) INH 1 vial in nebulizer every 4 hours as needed No Start Date 01/21/2013 Inactive Adderall XR 20 mg 24 hr Cap RxNorm: 906486 1 Capsule(s) PO QAM No S tart Date 01/25/2011 Inactive Xanax 0.25 mg Tab RxNorm: 534997 1/2 Tablet(s) PO BID PRN No Start Date 03/02/2010 Inactive Tylenol Extra Strength 500 mg Tab RxNorm: 970988 2 Tablet(s) PO PRN No Start Date 08/24/2011 Inactive Adderall 20 mg tablet RxNorm: 342332 2 Tablet(s) PO QD No Start Date 10/31/2012 Inactive bisacodyl 5 mg tablet,delayed release RxNorm: 167317 1 Tablet(s) PO Q12H as needed No Start Date 02/04/2019 Inactive Tessalon Perles 100 mg capsule RxNorm: 715351 1 Capsule (s) PO TID as needed for cough No Start Date 09/15/2017 Inactive Vitamin D3 1,000 unit tablet RxNorm: 478538 3 Tablet(s) PO QD No St art Date 02/22/2017 Inactive meloxicam 7.5 mg tablet RxNorm: 862195 1 Tablet(s) PO QD No Start D ate 10/18/2012 Inactive Bactroban 2 % topical ointment RxNorm: 737523 1 Application TOP QD No Start Date 12/11/2017 Inactive Toviaz 8 mg 24 hr Tab RxNorm: 788323 1 Tablet(s) PO QD No Start Date 09/21/2010 Inactive Prevacid 15 mg capsule,delayed release RxNorm: 755532 Capsule(s ) PO QD No Start Date 02/28/2018 Inactive K-Dur 20 mEq tablet,extended release RxNorm: 7219534 1 Tablet(s) PO QD No Start Date 10/18/2012 Inactive Adderall XR 20 mg 24 hr Cap RxNorm: 177070 2 Capsule(s) PO QAM No S tart Date 05/24/2011 Inactive Calcium with Vitamin D 600 mg-400 unit Tab RxNorm: 061585 1 Tab let(s) PO QD No Start Date 08/24/2011 Inactive Miralax 17 gram oral powder packet RxNorm: 140573 17 Gram(s) PO BID as needed No Start Date 11/26/2018 Inactive Zestril 10 mg Tab RxNorm: 548580 1 Tablet(s) PO QD No Start Date 10/06 Inactive baclofen 10 mg tablet RxNorm: 018799 1 Tablet(s) PO QHS No Start Da te 09/11/2015 Inactive Tums 500 Oral RxNorm: Oral No Start Date 01/13/2015 Inactive Senokot-S 8.6 mg-50 mg tablet RxNorm: 3618103 1 Tablet(s) PO BID No Start Date 11/26/2018 Inactive Prozac 10 mg Tab RxNorm: 504000 1 Capsule(s) PO QD No Start Date 10/06 Inactive Elavil 10 mg tablet RxNorm: 151404 1 Tablet(s) PO QHS No Start Date 0 12/12/2018 Inactive Dulcolax Stool Softener (docusate) 100 mg capsule RxNorm: 12 53456 1 Capsule(s) PO Q8H as needed No Start Date 01/19/2017 Inactive Adderall XR 30 mg 24 hr Cap RxNorm: 607052 1 Capsule(s) PO QAM No S tart Date 04/14/2011 Inactive Milk of Magnesia-Cascara 15.25 % oral suspension RxNorm: oral No Start Date 11/26/2018 Inactive Tylenol 325 mg tablet RxNorm: 501054 2 Tablet(s) PO Q4H as needed N o Start Date 11/26/2018 Inactive Prilosec 20 mg capsule,delayed release RxNorm: 262772 1 Capsule (s) PO BID No Start Date 09/08/2014 Inactive Tylenol 8 Hour 650 mg tablet,extended release RxNorm: 596710 0 1 Tablet(s) PO Q4H as needed No Start Date 11/26/2018 Inactive Vitamin D3 2,000 unit tablet RxNorm: 999139 1 Tablet(s) PO QD No St art Date 02/22/2017 Inactive nystatin 100,000 unit/gram topical powder RxNorm: 042842 1 Appl ication TOP BID No Start Date 08/15/2017 Inactive morphine 20 mg/5 mL (4 mg/mL) oral solution RxNorm: 670142 .25 Milliliter(s) PO Q4H as needed No Start Date 09/24/2018 Inactive Forteo 20 mcg/dose (750 mcg/3 mL) Sub-Q Pen Injector RxNorm: 143 5115 SQ QD No Start Date 01/21/2010 Inactive ciprofloxacin 0.3 % Eye Drops RxNorm: 306824 2 Drop(s) OPH TID to affected eye No Start Date 08/23/2012 Inactive bisacodyl 5 mg tablet RxNorm: 784165 1 Tablet(s) PO BID No Start Da te 02/11/2016 Inactive Avosil 2 %-0.2 % topical ointment RxNorm: 1 Appl ication TOP Q8H as needed to burn sites No Start Date 11/26/2018 Inactive Milk of Alexa 800 mg/5 mL oral suspension RxNorm: 638732 Milliliter(s) PO as needed No Start Date 06/20/2018 Inactive Atarax 25 mg tablet RxNorm: 656224 1 Tablet(s) PO Q4H prn itchi ng/hives No Start Date 08/24/2011 Inactive Adderall XR 30 mg 24 hr Cap RxNorm: 901488 1 Capsule(s) PO QAM No S tart Date 07/26/2010 Inactive Prevacid 30 mg Cap RxNorm: 766472 1 Capsule(s) PO QD No Start Date Inactive Vitamin C 500 mg tablet RxNorm: 042421 1 Tablet(s) PO BID No Start Date 07/11/2016 Inactive Vistaril 25 mg capsule RxNorm: 885855 1 Capsule(s) PO Q4H PRN No St art Date 03/02/2010 Inactive tramadol 50 mg tablet RxNorm: 705844 1 Tablet(s) PO TID as need ed for pain No Start Date 01/21/2013 Inactive Multivitamin & Mineral Formula tablet RxNorm: 1 Tablet(s) PO Q D No Start Date 06/22/2018 Inactive hydrocodone 5 mg-acetaminophen 325 mg tablet RxNorm: 348474 1 Tablet(s) PO Q4H as needed for pain No Start Date 06/24/2019 Inactive Multivitamin & Mineral Formula Oral RxNorm: Oral No Start Da te 03/02/2010 Inactive Miralax 17 gram oral powder packet RxNorm: 066735 17 Gr am(s) PO QPM for constipation No Start Date 02/25/2015 Inactive Percocet 5 mg-325 mg tablet RxNorm: 7085699 1-2 Tablet(s) PO Q4H as needed No Start Date 09/24/2018 Inactive triamcinolone acetonide 0.1 % topical cream RxNorm: 3003885 1 Application TOP TID to affected area as needed No Start Date 12/12/2013 Inactive rabeprazole 20 mg tablet,delayed release RxNorm: 537960 1 Table t(s) PO QD No Start Date 09/24/2018 Inactive Protonix 40 mg tablet,delayed release RxNorm: 504977 1 Tablet(s ) PO QD No Start Date 10/18/2012 Inactive Mobic 7.5 mg Tab RxNorm: 540573 1 Tablet(s) PO BID No Start Date 10/06 Inactive Sinemet CR 50 mg-200 mg Tab RxNorm: 613101 1 Tablet(s) PO QD No Sta rt Date 03/02/2010 Inactive Adderall XR 20 mg 24 hr Cap RxNorm: 240690 2 Capsule(s) PO QD No St art Date 02/02/2010 Inactive Medication Administered No Medication Administered data Immunizations No Immunization data Results Observation Observation Code Item Item Code Result Date S ervice Location COMPLETE BLOOD COUNT [id number] WBC 7.3 10e9/L 05/29/20 12 Unknown COMPLETE BLOOD COUNT [id number] RBC 5.20 10e12/L 2011 Unknown COMPLETE BLOOD COUNT [id number] HGB 15.3 g/dL 2 Unknown COMPLETE BLOOD COUNT [id number] HCT DET 45.9 % 2 Unknown COMPLETE BLOOD COUNT [id number] MCV 88.3 fL 2 Unknown COMPLETE BLOOD COUNT [id number] MCH 29.4 pg 2 Unknown COMPLETE BLOOD COUNT [id number] MCHC 33.3 g/dL 2 Unknown COMPLETE BLOOD COUNT [id number] PLT 341 10e9/L 05/29/20 12 Unknown COMPLETE BLOOD COUNT [id number] MPV 10.1 fL 2 Unknown COMPLETE BLOOD COUNT [id number] ASHLEY % 63.2 % 2 Unknown COMPLETE BLOOD COUNT [id number] LY % 27.4 % 2 Unknown COMPLETE BLOOD COUNT [id number] MON % 7.6 % 2 Unknown COMPLETE BLOOD COUNT [id number] EOS % 1.5 % 2 Unknown COMPLETE BLOOD COUNT [id number] BASO % 0.3 % 2 Unknown COMPLETE BLOOD COUNT [id number] RDW 13.6 % 2 Unknown COMPLETE BLOOD COUNT [id number] ABS ASHLEY 4.61 10e9/L 012 Unknown COMPLETE BLOOD COUNT [id number] ABS LYMPH 2.00 10e9/L 012 Unknown COMPLETE BLOOD COUNT [id number] ABS MONO 0.55 10e9/L 012 Unknown COMPLETE BLOOD COUNT [id number] ABS EOS 0.11 10e9/L 012 Unknown COMPLETE BLOOD COUNT [id number] ABS BASO 0.02 10e9/L 012 Unknown COMPLETE BLOOD COUNT [id number] RDW-SD 43.5 fL 2 Unknown THYROID STIMULATING HORMONE 37117 TSH 1.487 uIU/ML 05/29/2012 Unknown GFR CALC [id number] GFR AA >60 ML/MIN 05/29/2012 Unknown GFR CALC [id number] GFR NON-AA >60 ML/MIN 05/29/2012 Unknown FREE T4 33655 FREE T4 1.20 NG/DL 05/29/2012 Unknown COMPREHENSIVE METABOLIC 89196 AST 17 U/L 2011 Unknown COMPREHENSIVE METABOLIC 02270 ALT 16 IU/L 2011 Unknown COMPREHENSIVE METABOLIC 26963 BUN 9 MG/DL 2011 Unknown COMPREHENSIVE METABOLIC 33872 ALBUMIN 4.1 GM/DL 2011 Unknown COMPREHENSIVE METABOLIC 15841 CHLORIDE 106 MMOL/L 05/29 Unknown COMPREHENSIVE METABOLIC 00057 BILI TOT 0.4 MG/DL 2011 Unknown COMPREHENSIVE METABOLIC 34489 ALK PHOS 87 U/L 2011 Unknown COMPREHENSIVE METABOLIC 40781 SODIUM 142 MMOL/L 05/29 Unknown COMPREHENSIVE METABOLIC 99333 CREATININE 0.79 MG/DL 05/09 Unknown COMPREHENSIVE METABOLIC 27518 CALCIUM 9.2 MG/DL 2011 Unknown COMPREHENSIVE METABOLIC 61177 POTASSIUM 3.6 MMOL/L 05/29 Unknown COMPREHENSIVE METABOLIC 66444 PROT TOT 6.5 GM/DL 2011 Unknown COMPREHENSIVE METABOLIC 47350 Glucose 78 MG/DL 2011 Unknown COMPREHENSIVE METABOLIC 47590 BICARB 27 MMOL/L 2011 Unknown COMPREHENSIVE METABOLIC 36407 ANION GAP 9 MEQ/L 2011 Unknown Procedures Procedure Codes Date PPPS, subseq visit CPT-4: G0439 08/03/2018 PPPS, subseq visit CPT-4: G0439 07/12/2016 CUR TOBACCO NON-USER CPT-4: G8457 04/15/2015 URINALYSIS NONAUTO W/O SCOPE CPT-4: 09781 07/05/2012 URINE CULTURE/ COLONY COUNT CPT-4: 24795 07/05/2012 PRESCRIP TRANSMIT VIA ERX SY CPT-4: G8553 07/05/2012 ROUTINE VENIPUNCTURE CPT-4: 17952 05/29/2012 ASSAY OF FREE THYROXINE CPT-4: 82978 05/29/2012 ASSAY THYROID STIM HORMONE CPT-4: 48680 05/29/2012 COMPREHEN METABOLIC PANEL CPT-4: 31888 05/29/2012 COMPLETE CBC W/AUTO DIFF WBC CPT-4: 91209 05/29/2012 PRESCRIP TRANSMIT VIA ERX SY CPT-4: G8553 05/29/2012 PRESCRIP TRANSMIT VIA ERX SY CPT-4: G8553 02/02/2012 PRESCRIP TRANSMIT VIA ERX SY CPT-4: G8553 05/27/2011 PRESCRIP TRANSMIT VIA ERX SY CPT-4: G8553 02/22/2011 MD SERVICE REQUIRED FOR PMD CPT-4: G0372 06/15/2010 ROUTINE VENIPUNCTURE CPT-4: 53458 10/20/2009 Vital Signs Date Vital 12/03/2019 Blood [...] 1: 114/66 Code: 8480-6 BMI: 25.8 Code: 14304-3 Heart Rate 1: 72 bpm Height: 5'2" Respiratory Rate: 20 bpm SpO2: 94% Tempera ture: 36.7 (C) / 98.0 (F) Weight: 141 lbs 2 oz 05/11/2016 Blood Pressure 1: 116/68 Code: 8480-6 Heart Rate 1: 80 bpm Height: Respiratory Rate: 20 bpm Temperature: 36.8 (C) / 98.3 (F) Weight: 12/23/2015 Blood Pressure 1: 116/78 Code: 8480-6 Heart Rate 1: 76 bpm [...] 1: 122/80 Code: 8480-6 BMI: 24.9 Code: 69326-6 Heart Rate 1: 100 bpm Height: 5'2" Respiratory Rate: 20 bpm Temperature: 37 .1 (C) / 98.8 (F) Weight: 136 lbs 11/03/2011 Blood Pressure 1: 104/60 Code: 8480-6 BMI: 24.1 Code: 17650-5 Heart Rate 1: 88 bpm Height: 5'2" Respiratory Rate: 20 bpm Temperature: 36 .6 (C) / 97.8 (F) Weight: 132 lbs 08/25/2011 Blood Pressure 1: 128/86 Code: 8480-6 BMI: 24.9 Code: 83698-8 Heart Rate 1: 76 bpm Height: 5'2" Respiratory Rate: 20 bpm Temperature: 36 .2 (C) / 97.2 (F) Weight: 136 lbs 05/27/2011 Blood Pressure 1: 130/90 Code: 8480-6 BMI: 25.1 Code: 30997-8 Heart Rate 1: 68 bpm Height: 5'2" [...] 1: 114/70 Code: 8480-6 BMI: 22.9 Code: 55309-3 Heart Rate 1: 92 bpm Height: 5'2" Temperature: 36.4 (C) / 97.5 (F) Weight: 125 lbs Functional Status No Functional Status data Reason For Visit Reason For Visit Effective Dates Notes follow up 12/03/2019 2mo fwup follow up [...] Codes Date () OFFICE/OUTPATIENT VISIT EST Diagnosis: Constipation[ICD10: K59.00] Diagnosis: Sacral decubitus ulcer[ICD10: L89.159] Cherri OLSON [employer] CPT-4: 85168 12/03/2019 ([id number]) OFFICE/OUTPATIENT VISIT EST 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] Diagnosis: Muscle weakness (generalized)[ICD10: M62.81] Cherri MACHUCA [employer] CPT-4: 64063 10/01/2019 ([id number]) OFFICE/OUTPATIENT VISIT EST Diagnosis: Personal history of malignant neoplasm of brain[ICD10: Z85.841] Diagnosis: Muscle weakness (generalized)[ICD10: M62.81] Diagnosis: Hemiplegia, unspecified affecting left dominant side[ICD10: G81.92] Diagnosis: Contracture, 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] Cherri OLSON [employer] CPT-4: 82981 06/25/2019 ([id number]) OFFICE/OUTPATIENT VISIT EST Diagnosis: Attention and concentration deficit[ICD10: R41.840] Diagnosis: Abnormal weight loss[ICD10: R63.4] Cherri DANIEL [employer] CPT-4: 31928 02/05/2019 ([id number]) OFFICE/OUTPATIENT VISIT EST Diagnosis: Attention and concentration deficit[ICD10: R41.840] Cherri MACHUCA [employer] CPT-4: 63226 12/13/2018 ([id number]) OFFICE/OUTPATIENT VISIT EST Diagnosis: Laceration without foreign body of left upper arm, sequela[ICD10: S41.112S] Diagnosis: Other fatigue[ICD10: R53.83] Cherri HOLGUIN DO [facility] CPT-4: 70905 11/27/2018 ([id number]) OFFICE/OUTPATIENT VISIT EST Diagnosis: Gastro-esophageal reflux disease without esophagitis[ICD10: K21.9] Diagnosis: Contracture, 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] Diagnosis: Slow transit constipation[ICD10: K59.01] Cherri HOLGUIN DO [facility] CPT-4: 50960 09/25/2018 ([id number]) OFFICE/OUTPATIENT VISIT EST Diagnosis: Gastro-esophageal reflux disease without esophagitis[ICD10: K21.9] Diagnosis: Muscle weakness (generalized)[ICD10: M62.81] Maxine HOLGUIN [employer] [facility] CPT-4: 29636 06/22/2018 ([id number]) OFFICE/OUTPATIENT VISIT EST Diagnosis: Gastro-esophageal reflux disease without esophagitis[ICD10: K21.9] Cherri HOLGUIN DO [facility] CPT-4: 63170 04/06/2018 ([id number]) OFFICE/OUTPATIENT VISIT EST Diagnosis: Gastro-esophageal reflux disease without esophagitis[ICD10: K21.9] Maxine HOLGUIN DO [facility] CPT-4: 95762 03/06/2018 ([id number]) OFFICE/OUTPATIENT VISIT EST Diagnosis: 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] Diagnosis: Gastro-esophageal reflux disease without esophagitis[ICD10: K21.9] Diagnosis: Slow transit constipation[ICD10: K59.01] Diagnosis: Primary insomnia[ICD10: F51.01] Cherri HOLGUIN [employer] [facility] CPT-4: 74912 02/15/2018 ([id number]) OFFICE/OUTPATIENT VISIT EST Diagnosis: Muscle weakness (generalized)[ICD10: M62.81] Diagnosis: Gastro-esophageal reflux disease without esophagitis[ICD10: K21.9] Cherri HOLGUIN [facility] CPT-4: 21057 12/12/2017 ([id number]) OFFICE/OUTPATIENT VISIT EST Diagnosis: Nondisplaced fracture of medial malleolus of left tibia, subsequent encounter for closed fracture with delayed healing[ICD10: S82.55XG] Cherri HOLGUIN DO [facility] CPT-4: 65679 10/10/2017 OFFICE/OUTPATIENT VISIT EST Diagnosis: Acute upper respiratory infection, unspecified[ICD10: J06.9] Maxine HOLGUIN [facility] CPT-4: 52591 09/19/2017 ([id number]) OFFICE/OUTPATIENT VISIT EST Diagnosis: Muscle weakness (generalized)[ICD10: M62.81] Diagnosis: Other specified disorders of the skin and subcutaneous tissue[ICD10: L98.8] Cherri HOLGUIN [facility] CPT-4: 72731 08/04/2017 ([id number]) OFFICE/OUTPATIENT VISIT EST Diagnosis: Unspecified open wound of abdominal wall, left upper quadrant with penetration into peritoneal cavity, sequela[ICD10: S31.601S] Diagnosis: Muscle weakness (generalized)[ICD10: M62.81] Diagnosis: Personal history of malignant neoplasm of brain[ICD10: Z85.841] Cherri HOLGUIN [employer] [facility] CPT-4: 90875 07/12/2017 ([id number]) OFFICE/OUTPATIENT VISIT EST Diagnosis: Non-pressure chronic ulcer of skin of other sites with unspecified severity[ICD10: L98.499] Diagnosis: Tinea cruris[ICD10: B35.6] Cherri RUSHING [facility] CPT-4: 61497 05/30/2017 ([id number]) OFFICE/OUTPATIENT VISIT EST Diagnosis: Cellulitis of abdominal wall[ICD10: L03.311] Diagnosis: Cellulitis of chest wall[ICD10: L03.313] Cherri HOLGUIN [facility] CPT-4: 52208 05/02/2017 ([id number]) OFFICE/OUTPATIENT VISIT EST Diagnosis: Cellulitis of chest wall[ICD10: L03.313] Diagnosis: Muscle weakness (generalized)[ICD10: M62.81] Cherri HOLGUIN DO [facility] CPT-4: 72532 02/28/2017 ([id number]) OFFICE/OUTPATIENT VISIT EST Diagnosis: Cellulitis of abdominal wall[ICD10: L03.311] Cherri HOLGUIN DO [facility] CPT-4: 05876 12/06/2016 OFFICE/OUTPATIENT VISIT EST Diagnosis: Cutaneous abscess of abdominal wall[ICD10: L02.211] Diagnosis: Cellulitis of abdominal wall[ICD10: L03.311] Cherri HOLGUIN DO [facility] CPT-4: 89089 12/02/2016 ([id number]) OFFICE/OUTPATIENT VISIT EST Diagnosis: Cellulitis of abdominal wall[ICD10: L03.311] Diagnosis: Cutaneous abscess of abdominal wall[ICD10: L02.211] Cherri HOLGUIN DO [facility] CPT-4: 38063 12/01/2016 ([id number]) OFFICE/OUTPATIENT VISIT EST Diagnosis: Cutaneous abscess of abdominal wall[ICD10: L02.211] Diagnosis: Cellulitis of abdominal wall[ICD10: L03.311] Cherri HOLGUIN DO [facility] CPT-4: 98730 11/30/2016 ([id number]) OFFICE/OUTPATIENT VISIT EST Diagnosis: Muscle weakness (generalized)[ICD10: M62.81] Diagnosis: Slow transit constipation[ICD10: K59.01] Diagnosis: 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, 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] Cherri HOLGUIN DO [facility] CPT-4: 04356 10/26/2016 ([id number]) OFFICE/OUTPATIENT VISIT EST Diagnosis: Other seborrheic dermatitis[ICD10: L21.8] Cherri HOLGUIN DO [facility] CPT-4: 06097 09/13/2016 ([id number]) OFFICE/OUTPATIENT VISIT EST Diagnosis: Contracture, 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] Diagnosis: Nicotine dependence, cigarettes, uncomplicated[ICD10: F17.210] Diagnosis: Hemiplegia, unspecified affecting unspecified side[ICD10: G81.90] Diagnosis: Muscle weakness (generalized)[ICD10: M62.81] Cherri HOLGUIN DO [facility] CPT-4: 76663 05/11/2016 ([id number]) OFFICE/OUTPATIENT VISIT EST Diagnosis: Muscle weakness (generalized)[ICD10: M62.81] Diagnosis: Abnormal weight loss[ICD10: R63.4] Cherri HOLGUIN [employer] [facility] CPT-4: 79553 12/23/2015 ([id number]) OFFICE/OUTPATIENT VISIT EST Diagnosis: Torticollis[ICD10: M43.6] Diagnosis: Cervicalgia[ICD10: M54.2] Diagnosis: Basal cell carcinoma of skin, unspecified[ICD10: C44.91] Cherri HOLGUIN DO [facility] CPT-4: 26352 09/23/2015 ([id number]) OFFICE/OUTPATIENT VISIT EST Diagnosis: Constipation[ICD9: 564.00] Diagnosis: MUSCLE WEAKNESS-GENERAL[ICD9: 728.87] Cherri HOLGUIN [employer] [facility] CPT-4: 13426 04/15/2015 ([id number]) OFFICE/OUTPATIENT VISIT EST Diagnosis: MALAISE AND FATIGUE[ICD9: 780.79] Diagnosis: 3RD DEGREE BURN[ICD9: 949.3] Cherri HOLGUIN DO [facility] CPT-4: 57843 01/14/2015 ([id number]) OFFICE/OUTPATIENT VISIT EST Diagnosis: Constipation[ICD9: 564.00] Diagnosis: MUSCLE WEAKNESS-GENERAL[ICD9: 728.87] Diagnosis: 3RD DEGREE BURN[ICD9: 949.3] Cherri HOLGUIN DO [facility] CPT-4: 68559 10/29/2014 ([id number]) OFFICE/OUTPATIENT VISIT EST Diagnosis: Weakness generalized[ICD9: 780.79] Diagnosis: 3RD DEGREE BURN[ICD9: 949.3] Cherri HOLGUIN [employer] [facility] CPT-4: 53134 08/20/2014 ([id number]) OFFICE/OUTPATIENT VISIT EST Diagnosis: 3RD DEGREE BURN[ICD9: 949.3] Diagnosis: DYSPHAGIA NEC[ICD9: 787.29] Cherri MICHAELS [facility] CPT-4: 18531 06/04/2014 ([id number]) OFFICE/OUTPATIENT VISIT EST Diagnosis: 3RD DEGREE BURN[ICD9: 949.3] Diagnosis: Complication of skin graft[ICD9: 996.52] Diagnosis: TOBACCO USE DISORDER[ICD9: 305.1] Cherri HOLGUIN [facility] CPT-4: 93667 05/06/2014 ([id number]) OFFICE/OUTPATIENT VISIT EST Diagnosis: CELLULITIS[ICD9: 682.9] Cherri BRUNSON [facility] CPT-4: 60085 08/07/2013 ([id number]) OFFICE/OUTPATIENT VISIT EST Diagnosis: MUSCLE WEAKNESS-GENERAL[ICD9: 728.87] Diagnosis: MALAISE AND FATIGUE[ICD9: 780.79] Diagnosis: ABNORMALITY OF GAIT[ICD9: 781.2] [facility]: 98071 05/23/2013 ([id number]) OFFICE/OUTPATIENT VISIT EST Diagnosis: MALAISE AND FATIGUE[ICD9: 780.79] Diagnosis: MUSCLE WEAKNESS-GENERAL[ICD9: 728.87] Diagnosis: HEMIPLEGIANOS SIDE NOS[ICD9: 342.90] Diagnosis: 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] Cherri HOLGUIN [facility] CPT-4: 96797 04/25/2013 ([id number]) OFFICE/OUTPATIENT VISIT EST Diagnosis: MUSCLE WEAKNESS-GENERAL[ICD9: 728.87] Diagnosis: ABNORMALITY OF GAIT[ICD9: 781.2] Diagnosis: MALAISE AND FATIGUE[ICD9: 780.79] Cherri HOLGUIN [employer] [facility] CPT-4: 97762 01/22/2013 OFFICE/OUTPATIENT VISIT EST Diagnosis: MALAISE AND FATIGUE[ICD9: 780.79] Diagnosis: MUSCLE WEAKNESS-GENERAL[ICD9: 728.87] Diagnosis: HEMIPLEGIANOS SIDE NOS[ICD9: 342.90] Diagnosis: ABNORMALITY OF GAIT[ICD9: 781.2] Cherri HOLGUIN [facility] CPT-4: 83264 10/18/2012 OFFICE/OUTPATIENT VISIT EST Diagnosis: ABNORMALITY OF GAIT[ICD9: 781.2] Diagnosis: MALAISE AND FATIGUE[ICD9: 780.79] Diagnosis: MUSCLE WEAKNESS-GENERAL[ICD9: 728.87] Cherri HOLGUIN [facility] CPT-4: 75715 09/25/2012 OFFICE/OUTPATIENT VISIT EST Diagnosis: CERVICALGIA[ICD9: 723.1] Diagnosis: ABNORMALITY OF GAIT[ICD9: 781.2] Diagnosis: MUSCLE WEAKNESS-GENERAL[ICD9: 728.87] Cherri HOLGUIN [facility] CPT-4: 37202 08/24/2012 ([id number]) OFFICE/OUTPATIENT VISIT EST Diagnosis: URINARY TRACT INFECTION[ICD9: 599.0] Diagnosis: Altered mental state[ICD9: 780.97] Diagnosis: MUSCLE WEAKNESS-GENERAL[ICD9: 728.87] Diagnosis: HEMIPLEGIANOS SIDE NOS[ICD9: 342.90] Diagnosis: Cervicalgia[ICD9: 723.1] Cherri CARIAS [facility] CPT-4: 64093 07/27/2012 OFFICE/OUTPATIENT VISIT EST Diagnosis: URINARY TRACT INFECTION[ICD9: 599.0] Diagnosis: Weakness generalized[ICD9: 780.79] Diagnosis: FEBRILE ILLNESS[ICD9: 780.60] Diagnosis: Vision disturbance[ICD9: 368.9] Tasneem Esquivel CHERRI HOLGUIN [facility] CPT-4: 05172 07/05/2012 OFFICE/OUTPATIENT VISIT EST Diagnosis: CONJUNCTIVITIS NOS[ICD9: 372.30] Diagnosis: MUSCLE WEAKNESS-GENERAL[ICD9: 728.87] Diagnosis: HEMIPLEGIANOS SIDE NOS[ICD9: 342.90] Diagnosis: ABNORMALITY OF GAIT[ICD9: 781.2] Cherri HOLGUIN [facility] CPT-4: 48525 05/29/2012 ([id number]) OFFICE/OUTPATIENT VISIT EST Diagnosis: MUSCLE WEAKNESS-GENERAL[ICD9: 728.87] Diagnosis: HEMIPLEGIANOS SIDE NOS[ICD9: 342.90] Diagnosis: ABNORMALITY OF GAIT[ICD9: 781.2] Diagnosis: DYSPEPSIA[ICD9: 536.8] Diagnosis: GERD[ICD9: 530.81] Cherri HOLGUIN [employer] [facility] CPT-4: 48140 02/02/2012 ([id number]) OFFICE/OUTPATIENT VISIT EST Diagnosis: MUSCLE WEAKNESS-GENERAL[ICD9: 728.87] Diagnosis: ABNORMALITY OF GAIT[ICD9: 781.2] Diagnosis: GERD[ICD9: 530.81] Cherri HOLGUIN [facility] CPT-4: 45004 11/03/2011 OFFICE/OUTPATIENT VISIT EST Diagnosis: MUSCLE WEAKNESS-GENERAL[ICD9: 728.87] Diagnosis: ABNORMALITY OF GAIT[ICD9: 781.2] Diagnosis: VOMITING ALONE[ICD9: 787.03] Diagnosis: GERD[ICD9: 530.81] Cherri HOLGUIN [facility] CPT-4: 98249 08/25/2011 OFFICE/OUTPATIENT VISIT EST Diagnosis: CONJUNCTIVITIS NOS[ICD9: 372.30] Cherri HOLGUIN [facility] CPT-4: 08091 05/27/2011 OFFICE/OUTPATIENT VISIT EST Diagnosis: MUSCLE WEAKNESS-GENERAL[ICD9: 728.87] Diagnosis: ABNORMALITY OF GAIT[ICD9: 781.2] Cherri HOLGUIN [facility] CPT-4: 69580 04/15/2011 OFFICE/OUTPATIENT VISIT EST Diagnosis: MALAISE AND FATIGUE[ICD9: 780.79] Diagnosis: MUSCLE WEAKNESS-GENERAL[ICD9: 728.87] Diagnosis: DEPRESSIVE DISORDER NEC[ICD9: 311] Diagnosis: ABNORMALITY OF GAIT[ICD9: 781.2] Cherri HOLGUIN [facility] CPT-4: 55457 03/22/2011 OFFICE/OUTPATIENT VISIT EST Cherri DORANTES [employer] [facility] CPT- 4: 59705 02/22/2011 ([id number]) OFFICE/OUTPATIENT VISIT EST [facility] CPT-4: 24175 01/26/2011 ([id number]) OFFICE/OUTPATIENT VISIT, EST Cherri Thomas [facility] CPT-4: 80184 06/15/2010 ([id number]) OFFICE/OUTPATIENT VISIT, EST Cherri Thomas [facility] CPT-4: 19563 05/04/2010 ([id number]) OFFICE/OUTPATIENT VISIT, EST Cherri Thomas [facility] CPT-4: 41831 03/03/2010 ([id number]) OFFICE/OUTPATIENT VISIT, [place] Thomas [facility] [employer] CPT-4: 01612 10/20/2009 Plan of Care Planned Activity Notes Codes Status Date Visit Diagnosis Plan: Constipation Discussion: Doxy.me video with [place] nurse done Changing to bisacodyl suppository ICD-9 : 564.00 ICD-10 : K59.00 12/03/2019 Visit Diagnosis Plan: Sacral decubitus ulcer Discussio n: Wound Care seeing this week Follow Up: 2 months ICD-9 : 707.03 ICD-10 : L89.159 12/03/2019 Visit 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 FOLLOW UP 06/25/2019 [...] 783.21 ICD-10 : R63.4 02/05/2019 Appointment: Cherri Holguin WPtel: [address] [place], [place] [id number] [place] Confirmed with Nara Hankins 02/02 @ 11:07 am FOL LOW UP 02/05/2019 Appointment: Cherri Holguin WPtel: [address] [place], [place] [id number] [place] NO SHOW 01/24/2019 Visit Diagnosis Plan: Attention and concentration defi cit Discussion: Trial of strattera 10mg daily for 1 week then 25mg daily Recheck 6 weeks Stimulants have caused weight loss in past as patient is also poor, picky eater so with the stimulants her appetite worsens even more ICD-9 : 799.51 ICD-10 : R41.840 12/13/2018 Appointment: Cherri Holguin WPtel: [address] [place], [place] [id number] [place] confirmed with Morena FOLLOW UP 12/13/2018 [...] : R53.83 11/27/2018 Appointment: Cherri Holguin WPtel: [address] [place], [place] [id number] [place] confirmed with Karlee FOLLOW UP 11/27/2018 [...] : K59.01 09/25/2018 Appointment: Cherri Holguin WPtel: [address] [facility] [place] FOLLOW UP 09/25/2018 Visit Diagnosis Plan: Disorder of the skin and subcuta neous tissue, unspecified Discussion: referral to be sent to dr. hsieh for change in lesion on scalp. ICD-9 : 709.9 ICD-10 : L98.9 08/03/2018 Visit Diagnosis Plan: [facility] abnormal findings Discussion: [...] breast Discussion: mammogram order written to thierry e scheduled. ICD-9 : V76.10 ICD-10 : Z12.39 08/03/2018 Appointment: Maxine Glasgow [address] [facility] Annual Well Visit 08/03/2018 Visit Diagnosis [...] [place] [facility] [place] [facility] 06/22/2018 Visit Diagnosis Plan: Gastro-esophageal reflux disease without esophagitis Discussion: Continue aciphex at 20m po daily Recheck 2mos ICD-9 : 530.81 ICD-10 : K21.9 04/06/2018 Appointment: Cherri Holguin WPtel: [address] [facility] FOLLOW UP 04/06/2018 Patient Education: Patient Medication Summary Completed 04/06/2018 Appointment: Cherri Holguin WPtel: [phone] [facility] [place] RESCHEDULED 03/07/2018 Visit Diagnosis Plan: Gastro-esophageal reflux disease without esophagitis Discussion: patient had aciphex and prevacid on med list. order written out on patient's list to only give the aciphex as prescribed and not both. follow up in one month to assess medication efficacy and constipation. ICD-9 : 530.81 ICD-10 : K21.9 03/06/2018 Appointment: Maxine Glasgow [address] [facility] FOLLOW UP 03/06/2018 Patient Education: Patient Medication [...] 780.52 ICD-10 : F51.01 02/15/2018 Appointment: Cherri Holguintel: [address] [place], [place] [id number] [place] FOLLOW UP 02/15/2018 Patient Education: Patient Medication Summary Completed 02/15/2018 Appointment: Cherri Holguin WPtel: [address] [place], [place] [phone] [place] [employer] transportation called, stating that the patient is [...] : M62.81 12/12/2017 Appointment: Cherri Holguin WPtel: [address] [place], [place] [phone] [place] FOLLOW UP 12/12/2017 Patient Education: Patient Medication Summary Completed 12/12/2017 Visit Diagnosis Plan: Nondisplaced fract ure of medial malleolus of left tibia, subsequent encounter for closed fracture with delayed healing Discussion: Add miacalcin nasal spray for next 2mos Fwup with ortho Follow Up: 2 months ICD-9 : V54.16 ICD-10 : S82.55XG 10/10/2017 Appointment: Cherri Holguintel: [address] [place], [place] [phone] [place] FOLLOW UP 10/10/2017 Patient Education: Patient Medication Summary Completed 10/10/2017 Appointment: Cherri Holguin WPtel: [address] [place], [place] [phone] [place] RESCHEDULED 10/04/2017 Referral: Alvarado Mercado WPtel: [address] [address] [place] Referral Initiated 10/04/2017 Visit Diagnosis Plan: Acute upper respiratory infectio n, unspecified Discussion: continue with tessalon perles as needed. increase fluids. notify if worsening symptoms including shortness of breath or fever. call or rtc later this week if no improvement. instructed patient to perform deep breathing exercises at home. ICD-9 : 465.9 ICD-10 : J06.9 09/19/2017 Appointment: Maxine Glasgow [address] [place] [address] ACUTE ILLNESS 09/19/2017 Patient Education: Patient Medication Summary Completed 09/19/2017 Appointment: Cherri Holguin WPtel: [address] [place] [address] [place] CANCELED 08/16/2017 Visit Diagnosis Plan: Muscle [...] : L98.8 08/04/2017 Appointment: Cherri Holguin WPtel: [address] [place], [place] [id number] FOLLOW UP 08/04/2017 Patient Education: Patient Medication [...] : Z85.841 07/12/2017 Appointment: Cherri Holguin WPtel: [address] [place], [place] [phone] [facility] Follow Up 07/12/2017 Patient Education: [...] : B35.6 05/30/2017 Appointment: Cherri Holguin WPtel: [address] [place] [address] FOLLOW UP 05/30/2017 Patient Education: Patient Medication Summary Completed 05/30/2017 Visit Diagnosis Plan: Cellulitis of abdominal wall Dis cussion: Finish keflex Referral to wound care ICD-9 : 682.2 ICD-10 : L03.311 05/02/2017 Appointment: Cherri Holguin WPtel: [address] [place], [place] [phone] FOLLOW UP 05/02/2017 Patient Education: Patient Medication Summary Completed 05/02/2017 Referral: Remigio Valdes WPtel: [address] [place], [place] [phone] [place] Referral Initiated 04/05/2017 Visit Diagnosis Plan: Cellulitis of chest wall Discuss ion: Keflex x1 week Continue daily dressing changes ICD-9 : 682.2 ICD-10 : L03.313 02/28/2017 Visit Diagnosis Plan: Muscle weakness (generalized) Di scussion: Stable Follow Up: 2 months ICD-9 : 728.87 ICD-10 : M62.81 02/28/2017 Appointment: Cherri Holguin WPtel: [address] [place], [place] [phone] 02/24 confirmed~sl FOLLOW UP 02/28/2017 Patient Education: Patient Medication Summary Completed 02/28/2017 Visit Diagnosis Plan: Cellulitis of abdominal wall Dis cussion: Healing and improving so will finish all of clindamycin and monitor wounds for any worsening or recurrence ICD-9 : 682.2 ICD-10 : L03.311 12/06/2016 Appointment: Cherri Holguintel: [address] [place], [place] [phone] WORK IN 12/06/2016 Patient Education: Patient Medication Summary Completed 12/06/2016 Visit Diagnosis Plan: Cutaneous abscess of abdominal w all Discussion: Continue clindamycin and dressing changes To ER this weekend if worsens Fwup with me in 4 days for recheck ICD-9 : 682.2 ICD-10 : L02.211 12/02/2016 Appointment: Cherri Holguintel: [address] [place], [place] [phone] FOLLOW UP 12/02/2016 Patient Education: Patient Medication [...] : L02.211 12/01/2016 Appointment: Cherri Holguin WPtel: [facility] [place] WORK IN 12/01/2016 Patient Education: Patient Medication Summary Completed 12/01/2016 Visit Diagnosis Plan: Cutaneous abscess of abdominal w all Discussion: Copious amounts of pus expressed until bloody discharge Start clindamycin Recheck tomorrow Erythema outline marked Follow Up: 1 days ICD-9 : 682.2 ICD-10 : L02.211 11/30/2016 Appointment: Cherri Holguintel: [address] [place], [place] [id number] 11/29 confirmed`sl FOLLOW UP 11/30/2016 Patient Education: Patient Medication Summary Completed 11/30/2016 Appointment: Cherri Holguin WPtel: [address] [place], [place] [phone] 11/10 scalp looks ok will discuss at [...] : K59.01 10/26/2016 Appointment: Cherri Holguin WPtel: [address] [place], [place] [phone] ACUTE ILLNESS 10/26/2016 Patient Education: Patient Medication Summary Completed 10/26/2016 Patient Education: Patient Medication Summary Completed 10/21/2016 Care Plan: CT HEAD/BRAIN W/O DYE [facility] : [id number] Pending 10/21/2016 Visit Diagnosis Plan: Other seborrheic dermatitis Disc ussion: Topical ketoconazole shampoo alternating with selsun blue Follow Up: 2 months ICD-9 : 706.3 ICD-10 : L21.8 09/13/2016 Appointment: Cherri Holguin WPtel: [address] [place], [place] [phone] 2/ confirm`sl FOLLOW UP 09/13/2016 Patient Education: Patient Medication Summary Completed 09/13/2016 Appointment: Cherri Holguin WPtel: [address] [place], [place] [phone] [place] CANCELED 07/13/2016 Visit Plan: Low-dose CT scan-45 PPD of C hest Check hemoccult Discussed updated CT of head to recheck meningioma Zostavax vaccine Will obtain last colonoscopy results Update lab 07/12/2016 Appointment: Cherri Holguin WPtel: [address] [place], [place] [phone] 07/08 confirmed~sl Annual Well Visit 07/12/2016 Patient Education: Patient Medication Summary Completed 07/12/2016 Visit Plan: Gets teeth extracted next mo nth then getting fitted for dentures so some of poor appetite is due to inability to eat certain things Continue current meds Defers flu shot 05/11/2016 Appointment: Cherri Holguin WPtel: [address] [place], [place] [phone] 05/10 confirmed~sl FOLLOW UP 05/11/2016 Patient Education: Patient Medication Summary Completed 05/11/2016 Visit Plan: Discussed nutrition and poss ible shakes as supplement until gets teeth completely pulled and fitted for full dentures Continue current meds Did have right scalp lesion removed 12/23/2015 Appointment: Cherri Holguin WPtel: [address] [place], [place] [phone] 12/21 confirmed-sp FOLLOW UP 12/23/2015 Patient Education: Patient Medication Summary Completed 12/23/2015 Referral: Tabitha Messer WPtel: [facility] [address] [facility] Spoke with Kayli at [facility] and gave her appt information Initiated 10/07/2015 Visit Plan: Start PT for ROM of neck Dis cussed milkshake in place of meal if does not eat at least 20% of meal--patient states she wants to lose weight and does not like the food served there See dermatology for removal of scalp lesion 09/23/2015 Appointment: hCerri Holguin WPtel: [address] [place], [place] [phone] 09/22/15 appt confirmed with Amber at [facility] FOLLOW UP 09/23/2015 Patient Education: Patient Medication Summary Completed 09/23/2015 Visit Plan: Stop miralax and senokot-s S tart dulcolax daily Patient asking for PT and OT again but admits they don't really help/she doesn't gain much from them 04/15/2015 Appointment: Cherri Holguin WPtel: [address] [place], [place] [phone] 04/11 confirmed with [facility] cn FOLLOW UP 04/15/2015 Patient Education: Patient Medication Summary Completed 04/15/2015 Visit Plan: Check CBC, CMP, TSH, free T4 , Vit D Continue current meds 01/14/2015 Appointment: Cherri Holguin WPtel: [address] [place] [address] ACUTE ILLNESS 01/14/2015 Patient Education: Patient Medication Summary Completed 01/14/2015 Visit Plan: Change to Senokot-S 2 po BID Add miralax Has been released by burn center for now 10/29/2014 Appointment: Cherri Holguin WPtel: [address] [place] [address] 10/28 with Madiha FOLLOW UP 10/29/2014 Patient Education: Patient Medication Summary Completed 10/29/2014 Visit Plan: Patient is wheelchair bound now Continue current meds Patient following with [facility] end of 08/20/2014 Appointment: Cherri Holguin WPtel: [address] [place] [address] MLP rescheduled due to cold weather 08/19 message with Madiha at [facility] FOLLOW U P 08/20/2014 Patient Education: [...] in [place] 06/04/2014 Appointment: Cherri Holguin WPtel: [address] [place] [address] FOLLOW UP 06/04/2014 Patient Education: Patient Medication Summary Completed 06/04/2014 Visit Plan: Patient sees burn center nex t week Explained importance of taking nutren routinely as needs nutrition Increase prilosec to 20mg po BID Smoking Cessation 05/06/2014 Appointment: Cherri Holguin WPtel: [address] [place], [place] [id number] 05/03 vm on patient phone 05/03 message with Maria L at [facility] Follow Up 05/06/2014 Patient Education: Patient Medication Summary Completed 05/06/2014 Visit Plan: Finish abx Brian wrap to left LE and elevate 08/07/2013 Appointment: Cherri Holguin WPtel: [address] [place] [address] Urgent/Quick Care Follow Up 07/10 Patient Education: Patient Medication Summary Completed 08/07/2013 Appointment: Cherri Holguin WPtel: [address] [place] [address] 07/18 appointment confirmed with patient 07/19 NO SHOW FOLLOW UP 07/19/2013 Visit Plan: Continue current meds Contin ue PT 05/23/2013 Appointment: Cherri Holguin WPtel: [address] [place] [address] 05/22 vm...appt confirmed FOLLOW UP 2012 Patient Education: Patient Medication Summary Completed 05/23/2013 Visit Plan: Long discussion about need f or 24hr care Pt wants to go home 04/25/2013 Appointment: Cherri Holguin WPtel: [address] [place] [address] Appt confirmed with Augusto at [facility] Follow Up 04/25/2013 Patient Education: Patient Medication Summary Completed 04/25/2013 Appointment: Cher[facility] Holguin [facility]el[facility] [phone] [id number] 04/20 message left at [facility] FOLLOW UP 04/23/2013 Visit Plan: Continue current meds 01/22/2013 Appointment: Cherri Holguin WPtel: [phone] [facility] 01/22 vm left FOLLOW UP 01/22/2013 Patient Education: Patient Medication Summary Completed 01/22/2013 Appointment: Cherri Holguin WPtel: [phone] [facility] 11/20 left message...patient called in a t 10:00am and said she was unable to get to her car. She rescheduled for 11/27 11am 11/24 left message 11/29 called to confirm, patient cancell ed due to no ride from [facility]. patient will call [facility] and see when they can bring her and then call us to schedule FOLLOW UP 11/30/2012 Visit Plan: Going to go home at the end of week with caregiver Continue current meds 10/18/2012 Appointment: Cherri Holguin WPtel: [address] [place], [place] [phone] 10/17 appt confirmed with Reyna FOLLOW UP 10/18/2012 Patient Education: Patient Medication Summary Completed 10/18/2012 Visit Plan: Continue and finish PT Sultana nue current meds Fwup October 19 or --pts 100 days is up October 21 09/25/2012 Appointment: Cherri Holguin WPtel: [phone] [facility] [place] worked in since alf just droppe d her off. She was on shedule at one point but showed it was cancelled WORK IN Appointment: Cherri Holguin WPtel: [phone] [facility] 07/17 Cancelled 09/25 Appt - Patient has appointments on 07/08 & 07/27 FOLLOW UP 09/25/2012 Patient Education: Patient Medication Summary Completed 09/25/2012 Visit Plan: Continue current meds Pt wan ts to go home when her 100 days are up 08/24/2012 Appointment: Cherri Holguin WPtel: [address] [place], [place] [phone] FOLLOW UP 08/24/2012 Patient Education: Patient Medication Summary Completed 08/24/2012 Visit Plan: DC tramadol Repeat UA and ch edu UDS Start PT for neck Discussed neurology eval, but pt has been to several in past and even [facility] 07/27/2012 Appointment: Cherri Holguin WPtel: [address] [place], [place] [phone] FOLLOW UP 07/27/2012 Patient Education: Patient Medication Summary Completed 07/27/2012 Appointment: Cherri Holguin WPtel: [address] [place], [place] [phone] 07/17 - left message..07/17 left message with Antonella at [facility] pt has appt tomorrow and on I think the 07/18 appt was scheduled prior to hospitalization. 07/18 no showed. just entered alf so no show is forgiven FOLLOW UP 07/18/2012 Appointment: Tasneem Esquivel WPtel: [address] [place], [place] [phone] ACUTE ILLNESS 07/05/2012 Patient Education: Patient Medication Summary Completed 07/05/2012 Appointment: Cherri Holguin WPtel: [address] [place], [place] [phone] FOLLOW UP 05/29/2012 Patient Education: Patient Medication Summary Completed 05/29/2012 Appointment: Cherri Holguin WPtel: [address] [place], [place] [phone] [place] FOLLOW UP 02/02/2012 Patient Education: Patient Medication Summary Completed 02/02/2012 Visit Plan: Continue current meds Check CBC, CMP, TSH, Free T4, B12 11/03/2011 Appointment: Cherri Holguin WPtel: [address] [place] [address] FOLLOW UP 11/03/2011 Patient Education: Patient Medication Summary Completed 11/03/2011 Visit Plan: Adderall refilled Continue c urrent meds 08/25/2011 Appointment: Cherri Holguin WPtel: [address] [place] [address] FOLLOW UP 08/25/2011 Patient Education: Patient Medication Summary Completed 08/25/2011 Appointment: Cherri Holguin WPtel: [address] [place] [address] Appointment was confirmed. FOLLOW UP 08/16 Visit Plan: Esther is eye doctor. Will u se eye drop.(Cipro as she claims allergy (nausea). Pt. is accompanied by "grounds keepers" from [facility]. Written instructions given for pt. to be seen in follow up by Esther. Written RX also given to pt. for cipro eye drops. Pt. is instructed that the RX has been electronically sent to [facility]. 05/27/2011 Appointment: Tasneem Esquivel WPtel: [address] [place] [address] ACUTE ILLNESS 05/27/2011 Patient Education: Patient Medication Summary Completed 05/27/2011 Visit Plan: Continue increased dose of A dderall 04/15/2011 Appointment: Cherri Holguin WPtel: [address] [place], [place] [phone] FOLLOW UP 04/15/2011 Patient Education: Patient Medication Summary Completed 04/15/2011 Appointment: Cherri Holguin WPtel: [address] [place] [address] FOLLOW UP 03/22/2011 Patient Education: Patient Medication Summary Completed 03/22/2011 Appointment: Cherri Holguin WPtel: [address] [place], [place] [id number] FOLLOW UP 02/25/2011 Visit Plan: Trial of Wellbutrin XL 150mg q AM 02/22/2011 Appointment: Cherri Holguin WPtel: [address] [place] [address] FOLLOW UP 02/22/2011 Patient Education: Patient Medication Summary Completed 02/22/2011 Visit Plan: Continue PT Add Cymbalta 30m g daily 01/26/2011 Appointment: Cherri Holguin WPtel: [address] [place] [address] FOLLOW UP 01/26/2011 Patient Education: Patient Medication Summary Completed 01/26/2011 Visit Plan: Cont current meds and PT Exa m for Power chair completed Adderall rx refilled 06/15/2010 Appointment: Cherri Holguin WPtel: [address] [place] [address] ESTABLISHED PATIENT 06/15/2010 Patient Education: Patient Medication Summary Completed 06/15/2010 Visit Plan: To rehab today for PT/OT--I will follow on rehab unit 05/04/2010 Appointment: Cherri Holguin WPtel: [address] [place] [address] FOLLOW UP 05/04/2010 Patient Education: Patient Medication Summary Completed 05/04/2010 Visit Plan: Cont PT Cont Forteo Long dis cussion about living home--will discuss with PT when finishes this session 03/03/2010 Appointment: Cherri Holguin WPtel: [address] [place] [address] FOLLOW UP 03/03/2010 Patient Education: Patient Medication Summary Completed 03/03/2010 Visit Plan: EGD by Dr. Dang Pt agrees to restart Forteo 10/20/2009 Appointment: Cherri Holguin WPtel: [address] [place] [address] FOLLOW UP 10/20/2009 Patient Education: Patient Medication Summary Completed 10/20/2009 Referral: Antonio Gandhi WPtel: [phone] [id number] [place] Referral Initiated Instructions Comment . Low-dose [...] been to several in past and even [facility] . Continue current meds Check CBC, CMP, TSH, Free T4, B12 . Adderall refilled Continue current meds . 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 Will use eye bj p.(Cipro as she claims allergy (nausea). Pt. is accompanied by "grounds keepers" from [facility]. Written instructions given for pt. to be [...]
--- OUTSIDE RECORDS SUMMARY | 2020-03-05 20:49 | XMS REPORT | CCD ---
Author Author Rosario Holguin D.O. 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 Name Role Phone Cherri Holguin D.O., PP Unavailable CCM Unavailable Summary Purpose Interface Exchange Insurance Providers Payer name Policy type / Coverage type Covered alliance party ID Effective Begin Date Effective End Date W[place] MEDIC[place] B [place] Medicare Part B [id number] Unknown AARP Medicare Part B [id number] Unknown Family History Family History data not found Social History Social History Element Codes Description Effective Dates Tobacco history SNOMED CT: 4418809 Former smoker 04/15/2015 Allergies, Adverse Reactions, Alerts [...] Instructions Tessalon Perles 100 mg capsule RxNorm: 500359 1 Capsule(s) Oral Q8H as needed 12/03/2019 No Stop Date Active glycerin (adult) rectal suppository RxNorm: 1 Cardenas ppository Rectal and Tuesday12/03/2019 No Stop Date Active cyanocobalamin (vit B-12) 1,000 mcg/mL injection solution Rx Norm: 018925 1 Milliliter(s) Intramuscular every 2 weeks 06/26/2019 09/24/2019 Inacti ve cyanocobalamin (vit B-12) 1,000 mcg/mL injection solution Rx Norm: 756946 1 Milliliter(s) Intramuscular every 2 weeks 06/26/2019 06/25/2019 Inacti ve bisacodyl 10 mg rectal suppository RxNorm: 728841 1 Sup pository Rectal QD as needed 05/10/2019 No Stop Date Active glycerin (adult) rectal suppository RxNorm: 3598568 1 Suppositor y RTL BIW 07/25/2018 12/02/2019 Inactive rabeprazole 20 mg tablet,delayed release RxNorm: 252980 1 Table t(s) PO QD 03/01/2018 05/29/2018 Inactive replaces lansoprazol e Adderall XR 10 mg capsule,extended release RxNorm: 345409 1 Cap teresa(s) PO QAM 10/20/2017 12/19/2017 Inactive Tessalon Perles 100 mg capsule RxNorm: 202498 1 Capsule (s) PO TID as needed for cough 09/16/2017 09/30/2019 Inactive Cymbalta 30 mg capsule,delayed release RxNorm: 807498 1 Capsule (s) PO QD 08/17/2017 12/02/2019 Inactive nystatin 100,000 unit/gram topical powder RxNorm: 759189 1 Appl ication TOP BID 08/16/2017 02/14/2018 Inactive Adderall XR 10 mg capsule,extended release RxNorm: 521903 1 Cap teresa(s) PO QAM 08/11/2017 09/09/2017 Inactive Adderall XR 10 mg capsule,extended release RxNorm: 346837 1 Cap teresa(s) PO QAM 08/04/2017 08/03/2017 Inactive Adderall XR 10 mg capsule,extended release RxNorm: 072137 1 Cap teresa(s) PO QAM 08/04/2017 08/10/2017 Inactive Bactrim DS 800 mg-160 mg tablet RxNorm: 333548 1 Tablet(s) PO BID 1 08/28/2016 07/07/2017 Inactive clindamycin 300 mg capsule RxNorm: 206187 2 Capsule(s) PO TID doses for today and tomorrow 11/30/2016 05/01/2017 Inactive ketoconazole 2 % shampoo RxNorm: 340181 1 Application TOP twice a week 09/14/2016 05/01/2017 Inactive hydrocodone 5 mg-acetaminophen 325 mg tablet RxNorm: 155494 1 Tablet(s) PO Q6H as needed for pain 07/12/2016 05/01/2017 Inactive Cipro 250 mg tablet RxNorm: 527034 1 Tablet(s) PO BID 09/29/201509/09 Inactive cefuroxime axetil 250 mg tablet RxNorm: 752872 1 Tablet(s) PO BID 0 09/10/2015 09/16/2015 Inactive Micro-K 8 mEq capsule,extended release RxNorm: 790383 1 Capsule (s) PO QD 08/20/2015 08/16/2017 Inactive Micro-K 8 mEq capsule,extended release RxNorm: 873335 1 Capsule (s) PO QD 08/20/2015 08/19/2015 Inactive Adderall XR 20 mg capsule,extended release RxNorm: 912770 1 Cap teresa(s) PO QAM 04/30/2015 02/11/2016 Inactive hydroxyzine HCl 25 mg tablet RxNorm: 306479 1 Tablet(s) PO Q6H as needed for itching/hives 04/02/2015 09/12/2016 Inactive Miralax 17 gram oral powder packet RxNorm: 847829 17 Gr am(s) PO BID for constipation 02/26/2015 02/11/2016 Inactive Adderall XR 20 mg capsule,extended release RxNorm: 304035 1 Cap teresa(s) PO QAM 07/09/2014 08/07/2014 Inactive Adderall 20 mg tablet RxNorm: 672836 2 Tablet(s) PO QD 02/04/201408/2013 Inactive [AttnRPh: Saving apply/adjudicate RxGRP: SG20 RxBIN:[id number] RxPCN: ID#:[id number]] triamcinolone acetonide 0.1 % topical cream RxNorm: 3947766 1 Application TOP BID to affected area as needed 12/12/2013 01/13/2015 Inactive [ AttnRPh: Saving apply/adjudicate RxGRP:SG20 RxBIN:[id number] RxPCN: ID#:[id number]] Adderall 20 mg tablet RxNorm: 938799 2 Tablet(s) PO QD 12/04/2013 Inactive [AttnRPh: Saving apply/adjudicate RxGRP: SG20 RxBIN:[id number] RxPCN: ID#:[id number]] Adderall 20 mg tablet RxNorm: 464043 2 Tablet(s) PO QD 12/03/2013 Inactive [AttnRPh: Saving apply/adjudicate RxGRP: SG20 RxBIN:[id number] RxPCN: ID#:[id number]] Adderall 20 mg tablet RxNorm: 159204 2 Tablet(s) PO QD 11/02/2013 Inactive Adderall 20 mg tablet RxNorm: 051917 2 Tablet(s) PO QD 10/01/2013 Inactive meloxicam 7.5 mg tablet RxNorm: 486432 1 Tablet(s) PO QD 09/24/2013 0 08/19/2014 Inactive lisinopril 20 mg tablet RxNorm: 174711 1 Tablet(s) PO QD 09/24/2013 0 08/19/2014 Inactive Protonix 40 mg tablet,delayed release RxNorm: 756704 1 Tablet(s ) PO QD 09/24/2013 08/19/2014 Inactive Adderall 20 mg tablet RxNorm: 032458 2 Tablet(s) PO QD 08/29/2013 Inactive Adderall 20 mg tablet RxNorm: 764160 2 Tablet(s) PO QD 08/02/2013 Inactive hydroxyzine HCl 25 mg tablet RxNorm: 322225 1 Tablet(s) PO Q6H as needed 06/29/2013 08/19/2014 Inactive Adderall 20 mg tablet RxNorm: 733337 2 Tablet(s) PO QD 05/22/2013 Inactive Protonix 40 mg tablet,delayed release RxNorm: 729459 1 Tablet(s ) PO QD 05/15/2013 09/11/2013 Inactive meloxicam 7.5 mg tablet RxNorm: 304346 1 Tablet(s) PO QD 05/15/2013 0 09/11/2013 Inactive lisinopril 20 mg tablet RxNorm: 762187 1 Tablet(s) PO QD 05/15/2013 0 09/11/2013 Inactive Adderall 20 mg tablet RxNorm: 204876 2 Tablet(s) PO QD 04/02/2013 No Stop Date Active Adderall 20 mg tablet RxNorm: 244837 2 Tablet(s) PO QD 02/27/2013 No Stop Date Active Adderall 20 mg tablet RxNorm: 004555 2 Tablet(s) PO QD 01/22/2013 No Stop Date Active Adderall 20 mg tablet RxNorm: 493550 2 Tablet(s) PO QD 12/28/2012 No Stop Date Active Adderall 20 mg tablet RxNorm: 891947 2 Tablet(s) PO QD 12/01/2012 No Stop Date Active Adderall 20 mg tablet RxNorm: 262785 2 Tablet(s) PO QD 11/01/2012 No Stop Date Active K-Dur 20 mEq tablet,extended release RxNorm: 215183 1 Tablet(s) PO QD 10/19/2012 11/26/2018 Inactive meloxicam 7.5 mg tablet RxNorm: 295425 1 Tablet(s) PO QD 10/19/2012 0 04/16/2013 Inactive Protonix 40 mg tablet,delayed release RxNorm: 966787 1 Tablet(s ) PO QD 10/19/2012 04/16/2013 Inactive lisinopril 20 mg tablet RxNorm: 517900 1 Tablet(s) PO QD 10/19/2012 0 04/16/2013 Inactive Cipro 500 mg tablet RxNorm: 519400 1 Tablet(s) PO BID 07/05/201211/2011 Inactive Adderall XR 20 mg capsule,extended release RxNorm: 743066 2 Cap teresa(s) PO QAM 06/12/2012 07/26/2012 Inactive Adderall XR 20 mg capsule,extended release RxNorm: 760387 2 Cap teresa(s) PO QAM 05/16/2012 06/11/2012 Inactive Adderall XR 20 mg capsule,extended release RxNorm: 070912 2 Cap teresa(s) PO QAM 04/21/2012 05/15/2012 Inactive Adderall XR 20 mg capsule,extended release RxNorm: 950471 2 Cap teresa(s) PO QAM 02/16/2012 03/16/2012 Inactive Enablex 15 mg 24 hr Tab RxNorm: 308750 1 Tablet(s) PO QPM repla mady Vesicare 02/07/2012 05/28/2012 Inactive Enablex 15 mg 24 hr Tab RxNorm: 840216 1 Tablet(s) PO QPM repla mady Vesicare 02/07/2012 08/04/2012 Inactive Protonix 40 mg Tab RxNorm: 537950 1 Tablet(s) PO QD 02/07/20122011 Inactive Protonix 40 mg Tab RxNorm: 752839 1 Tablet(s) PO QD 02/02/20122011 Inactive Enablex 15 mg 24 hr Tab RxNorm: 120982 1 Tablet(s) PO QPM repla mady Vesicare 02/02/2012 02/06/2012 Inactive Adderall XR 20 mg 24 hr Cap RxNorm: 170300 2 Capsule(s) PO QAM 01/0602/15/2012 Inactive Adderall XR 20 mg 24 hr Cap RxNorm: 586892 2 Capsule(s) PO QAM 12/0601/15/2012 Inactive Adderall XR 20 mg 24 hr Cap RxNorm: 192635 2 Capsule(s) PO QAM 11/0612/16/2011 Inactive Adderall XR 20 mg 24 hr Cap RxNorm: 898635 2 Capsule(s) PO QAM 10/0611/17/2011 Inactive Adderall XR 20 mg 24 hr Cap RxNorm: 823343 2 Capsule(s) PO QAM 09/0910/24/2011 Inactive Prevacid 30 mg Cap RxNorm: 431880 1 Capsule(s) PO QD 07/30/201109/27 Inactive Adderall XR 20 mg 24 hr Cap RxNorm: 666128 2 Capsule(s) PO QAM 07/0908/28/2011 Inactive Adderall XR 20 mg 24 hr Cap RxNorm: 652511 2 Capsule(s) PO QAM 06/0807/21/2011 Inactive ciprofloxacin 0.3 % Eye Drops RxNorm: 712979 2 Drop(s) OPH Q2H 05/0905/31/2011 Inactive Adderall XR 20 mg 24 hr Cap RxNorm: 852920 2 Capsule(s) PO QAM 05/08 No Stop Date Active Wellbutrin XL 150 mg 24 hr Tab RxNorm: 527174 1 Tablet(s) PO QAM 04/14/2011 Inactive Vesicare 10 mg Tab RxNorm: 770747 1 Tablet(s) PO QD 12/24/20102011 Inactive Vesicare 10 mg Tab RxNorm: 262002 1 Tablet(s) PO QD 12/21/20102018 Inactive Adderall XR 30 mg 24 hr Cap RxNorm: 383917 1 Capsule(s) PO QD 11/1712/16/2010 Inactive Vesicare 10 mg Tab RxNorm: 909791 1 Tablet(s) PO QD 09/21/20102010 Inactive Adderall XR 30 mg 24 hr Cap RxNorm: 625995 1 Capsule(s) PO 09/17/19 11 10/16/2010 Inactive Adderall XR 30 mg 24 hr Cap RxNorm: 153040 1 Capsule(s) PO QAM 07/0911/26/2018 Inactive Adderall XR 30 mg 24 hr Cap RxNorm: 863786 1 Capsule(s) PO QAM 07/0908/03/2010 Inactive Adderall XR 20 mg 24 hr Cap RxNorm: 371832 2 Capsule(s) PO QD 01/2602/02/2010 Inactive Adderall XR 20 mg 24 hr Cap RxNorm: 499824 1 Capsule(s) PO QD 01/2605/03/2010 Inactive Forteo 20 mcg/dose (600 mcg/2.4 mL) Sub-Q Pen Injector RxNorm: 1 528708 SQ 12/30/2009 01/25/2011 Inactive hyoscyamine 0.125 mg sublingual tablet RxNorm: 0084617 1 Tablet(s) SL Q4H as needed for excessive secretions No Start Date Active Senokot-S 8.6 mg-50 mg tablet RxNorm: 0955069 2 Tablet(s) PO BID No Start Date Active rabeprazole 20 mg tablet,delayed release RxNorm: 875565 1 Table t(s) PO QD No Start Date Active Micro-K 10 10 mEq capsule,extended release RxNorm: 542527 1 Cap teresa(s) PO QD No Start Date Active docusate sodium 100 mg tablet RxNorm: 7034596 1 Tablet(s) PO Q8H as needed No Start Date Active ondansetron HCl 4 mg tablet RxNorm: 569185 1 Tablet(s) PO Q4H a s needed No Start Date Active Vitamin D3 5,000 unit tablet RxNorm: 697444 1 Tablet(s) PO QD No Star t Date Active bisacodyl 5 mg tablet RxNorm: 981679 1 Tablet(s) PO BID as needed N o Start Date Active aspirin 81 mg tablet RxNorm: 381201 1 Tablet(s) PO QD No Start Date Active Multivitamin And Mineral oral RxNorm: oral No Start Date Active Benadryl 1 % topical cream RxNorm: 0370550 TOP as needed for hiv es No Start Date Active K-Dur 20 mEq tablet,extended release RxNorm: 326729 1 Tablet(s) PO QD No Start Date 08/19/2014 Inactive Colace 100 mg capsule RxNorm: 5525986 1 Capsule(s) PO BID No Start Date 01/19/2017 Inactive ketoconazole 2 % shampoo RxNorm: 018275 1 Application TOP twice a week No Start Date 09/13/2016 Inactive ibuprofen 600 mg tablet RxNorm: 175921 1 Tablet(s) PO Q6H as ne eded No Start Date 06/21/2018 Inactive Zaditor 0.025 % Eye Drops RxNorm: 000262 1 Drop(s) OPH BID No Start Date 05/28/2012 Inactive senna 8.6 mg tablet RxNorm: 158080 2 Tablet(s) PO BID No Start Date 0 02/11/2016 Inactive senna 8.6 mg tablet RxNorm: 609207 1 Tablet(s) PO BID No Start Date 0 02/11/2016 Inactive Amoxil 500 mg capsule RxNorm: 167575 1 Capsule(s) PO BID No Start D ate 05/01/2017 Inactive lisinopril 20 mg tablet RxNorm: 772502 1 Tablet(s) PO QD No Start D ate 10/18/2012 Inactive Prevacid 30 mg Capsule, delayed release RxNorm: 168990 1 Capsul e(s) PO QD No Start Date 02/01/2012 Inactive Senokot-S 8.6 mg-50 mg Tab RxNorm: 7596644 2 Tablet(s) PO QD PRN No Start Date 03/02/2010 Inactive Cymbalta 30 mg capsule,delayed release RxNorm: 109885 1 Capsule (s) PO QD No Start Date 08/16/2017 Inactive ketoconazole 2 % topical cream RxNorm: 643806 1 Applica tion TOP BID to scaly eyebrows No Start Date 05/01/2017 Inactive lorazepam 0.5 mg tablet RxNorm: 418752 1 Tablet(s) PO Q4H as ne eded No Start Date 06/21/2018 Inactive Vitamin C 500 mg tablet RxNorm: 303433 1 Tablet(s) PO QD No Start D ate 01/21/2013 Inactive albuterol sulfate 2.5 mg/3 mL (0.083 %) Neb Solution RxNorm: 787931 Milliliter(s) INH 1 vial in nebulizer every 4 hours as needed No Start Date 01/21/2013 Inactive Adderall XR 20 mg 24 hr Cap RxNorm: 052904 1 Capsule(s) PO QAM No S tart Date 01/25/2011 Inactive Xanax 0.25 mg Tab RxNorm: 979524 1/2 Tablet(s) PO BID PRN No Start Date 03/02/2010 Inactive Tylenol Extra Strength 500 mg Tab RxNorm: 470048 2 Tablet(s) PO PRN No Start Date 08/24/2011 Inactive Adderall 20 mg tablet RxNorm: 233725 2 Tablet(s) PO QD No Start Date 10/31/2012 Inactive bisacodyl 5 mg tablet,delayed release RxNorm: 674274 1 Tablet(s) PO Q12H as needed No Start Date 02/04/2019 Inactive Tessalon Perles 100 mg capsule RxNorm: 267510 1 Capsule (s) PO TID as needed for cough No Start Date 09/15/2017 Inactive Vitamin D3 1,000 unit tablet RxNorm: 388367 3 Tablet(s) PO QD No St art Date 02/22/2017 Inactive meloxicam 7.5 mg tablet RxNorm: 493175 1 Tablet(s) PO QD No Start D ate 10/18/2012 Inactive Bactroban 2 % topical ointment RxNorm: 437538 1 Application TOP QD No Start Date 12/11/2017 Inactive Toviaz 8 mg 24 hr Tab RxNorm: 392816 1 Tablet(s) PO QD No Start Date 09/21/2010 Inactive Prevacid 15 mg capsule,delayed release RxNorm: 105819 Capsule(s ) PO QD No Start Date 02/28/2018 Inactive K-Dur 20 mEq tablet,extended release RxNorm: 4917937 1 Tablet(s) PO QD No Start Date 10/18/2012 Inactive Adderall XR 20 mg 24 hr Cap RxNorm: 229336 2 Capsule(s) PO QAM No S tart Date 05/24/2011 Inactive Calcium with Vitamin D 600 mg-400 unit Tab RxNorm: 030025 1 Tab let(s) PO QD No Start Date 08/24/2011 Inactive Miralax 17 gram oral powder packet RxNorm: 243308 17 Gram(s) PO BID as needed No Start Date 11/26/2018 Inactive Zestril 10 mg Tab RxNorm: 911612 1 Tablet(s) PO QD No Start Date 10/06 Inactive baclofen 10 mg tablet RxNorm: 015019 1 Tablet(s) PO QHS No Start Da te 09/11/2015 Inactive Tums 500 Oral RxNorm: Oral No Start Date 01/13/2015 Inactive Senokot-S 8.6 mg-50 mg tablet RxNorm: 1181037 1 Tablet(s) PO BID No Start Date 11/26/2018 Inactive Prozac 10 mg Tab RxNorm: 378122 1 Capsule(s) PO QD No Start Date 10/06 Inactive Elavil 10 mg tablet RxNorm: 268781 1 Tablet(s) PO QHS No Start Date 0 12/12/2018 Inactive Dulcolax Stool Softener (docusate) 100 mg capsule RxNorm: 12 85925 1 Capsule(s) PO Q8H as needed No Start Date 01/19/2017 Inactive Adderall XR 30 mg 24 hr Cap RxNorm: 750770 1 Capsule(s) PO QAM No S tart Date 04/14/2011 Inactive Milk of Magnesia-Cascara 15.25 % oral suspension RxNorm: oral No Start Date 11/26/2018 Inactive Tylenol 325 mg tablet RxNorm: 223244 2 Tablet(s) PO Q4H as needed N o Start Date 11/26/2018 Inactive Prilosec 20 mg capsule,delayed release RxNorm: 557552 1 Capsule (s) PO BID No Start Date 09/08/2014 Inactive Tylenol 8 Hour 650 mg tablet,extended release RxNorm: 445493 0 1 Tablet(s) PO Q4H as needed No Start Date 11/26/2018 Inactive Vitamin D3 2,000 unit tablet RxNorm: 742580 1 Tablet(s) PO QD No St art Date 02/22/2017 Inactive nystatin 100,000 unit/gram topical powder RxNorm: 328052 1 Appl ication TOP BID No Start Date 08/15/2017 Inactive morphine 20 mg/5 mL (4 mg/mL) oral solution RxNorm: 532682 .25 Milliliter(s) PO Q4H as needed No Start Date 09/24/2018 Inactive Forteo 20 mcg/dose (750 mcg/3 mL) Sub-Q Pen Injector RxNorm: 143 5115 SQ QD No Start Date 01/21/2010 Inactive ciprofloxacin 0.3 % Eye Drops RxNorm: 276320 2 Drop(s) OPH TID to affected eye No Start Date 08/23/2012 Inactive bisacodyl 5 mg tablet RxNorm: 115793 1 Tablet(s) PO BID No Start Da te 02/11/2016 Inactive Avosil 2 %-0.2 % topical ointment RxNorm: 1 Appl ication TOP Q8H as needed to burn sites No Start Date 11/26/2018 Inactive Milk of Alexa 800 mg/5 mL oral suspension RxNorm: 863767 Milliliter(s) PO as needed No Start Date 06/20/2018 Inactive Atarax 25 mg tablet RxNorm: 860214 1 Tablet(s) PO Q4H prn itchi ng/hives No Start Date 08/24/2011 Inactive Adderall XR 30 mg 24 hr Cap RxNorm: 360907 1 Capsule(s) PO QAM No S tart Date 07/26/2010 Inactive Prevacid 30 mg Cap RxNorm: 213362 1 Capsule(s) PO QD No Start Date Inactive Vitamin C 500 mg tablet RxNorm: 208372 1 Tablet(s) PO BID No Start Date 07/11/2016 Inactive Vistaril 25 mg capsule RxNorm: 618788 1 Capsule(s) PO Q4H PRN No St art Date 03/02/2010 Inactive tramadol 50 mg tablet RxNorm: 931162 1 Tablet(s) PO TID as need ed for pain No Start Date 01/21/2013 Inactive Multivitamin & Mineral Formula tablet RxNorm: 1 Tablet(s) PO Q D No Start Date 06/22/2018 Inactive hydrocodone 5 mg-acetaminophen 325 mg tablet RxNorm: 580854 1 Tablet(s) PO Q4H as needed for pain No Start Date 06/24/2019 Inactive Multivitamin & Mineral Formula Oral RxNorm: Oral No Start Da te 03/02/2010 Inactive Miralax 17 gram oral powder packet RxNorm: 249562 17 Gr am(s) PO QPM for constipation No Start Date 02/25/2015 Inactive Percocet 5 mg-325 mg tablet RxNorm: 3564388 1-2 Tablet(s) PO Q4H as needed No Start Date 09/24/2018 Inactive triamcinolone acetonide 0.1 % topical cream RxNorm: 4355684 1 Application TOP TID to affected area as needed No Start Date 12/12/2013 Inactive rabeprazole 20 mg tablet,delayed release RxNorm: 162139 1 Table t(s) PO QD No Start Date 09/24/2018 Inactive Protonix 40 mg tablet,delayed release RxNorm: 212104 1 Tablet(s ) PO QD No Start Date 10/18/2012 Inactive Mobic 7.5 mg Tab RxNorm: 447956 1 Tablet(s) PO BID No Start Date 10/06 Inactive Sinemet CR 50 mg-200 mg Tab RxNorm: 135442 1 Tablet(s) PO QD No Sta rt Date 03/02/2010 Inactive Adderall XR 20 mg 24 hr Cap RxNorm: 567849 2 Capsule(s) PO QD No St art Date 02/02/2010 Inactive Medication Administered No Medication Administered data Immunizations No Immunization data Results Observation Observation Code Item Item Code Result Date S ervice Location COMPLETE BLOOD COUNT [id number] WBC 7.3 10e9/L 05/29/20 12 Unknown COMPLETE BLOOD COUNT [id number] RBC 5.20 10e12/L 2011 Unknown COMPLETE BLOOD COUNT [id number] HGB 15.3 g/dL 2 Unknown COMPLETE BLOOD COUNT [id number] HCT DET 45.9 % 2 Unknown COMPLETE BLOOD COUNT [id number] MCV 88.3 fL 2 Unknown COMPLETE BLOOD COUNT [id number] MCH 29.4 pg 2 Unknown COMPLETE BLOOD COUNT [id number] MCHC 33.3 g/dL 2 Unknown COMPLETE BLOOD COUNT [id number] PLT 341 10e9/L 05/29/20 12 Unknown COMPLETE BLOOD COUNT [id number] MPV 10.1 fL 2 Unknown COMPLETE BLOOD COUNT [id number] ASHLEY % 63.2 % 2 Unknown COMPLETE BLOOD COUNT [id number] LY % 27.4 % 2 Unknown COMPLETE BLOOD COUNT [id number] MON % 7.6 % 2 Unknown COMPLETE BLOOD COUNT [id number] EOS % 1.5 % 2 Unknown COMPLETE BLOOD COUNT [id number] BASO % 0.3 % 2 Unknown COMPLETE BLOOD COUNT [id number] RDW 13.6 % 2 Unknown COMPLETE BLOOD COUNT [id number] ABS ASHLEY 4.61 10e9/L 012 Unknown COMPLETE BLOOD COUNT [id number] ABS LYMPH 2.00 10e9/L 012 Unknown COMPLETE BLOOD COUNT [id number] ABS MONO 0.55 10e9/L 012 Unknown COMPLETE BLOOD COUNT [id number] ABS EOS 0.11 10e9/L 012 Unknown COMPLETE BLOOD COUNT [id number] ABS BASO 0.02 10e9/L 012 Unknown COMPLETE BLOOD COUNT [id number] RDW-SD 43.5 fL 2 Unknown THYROID STIMULATING HORMONE 54972 TSH 1.487 uIU/ML 05/29/2012 Unknown GFR CALC [id number] GFR AA >60 ML/MIN 05/29/2012 Unknown GFR CALC [id number] GFR NON-AA >60 ML/MIN 05/29/2012 Unknown FREE T4 18141 FREE T4 1.20 NG/DL 05/29/2012 Unknown COMPREHENSIVE METABOLIC 59917 AST 17 U/L 2011 Unknown COMPREHENSIVE METABOLIC 30450 ALT 16 IU/L 2011 Unknown COMPREHENSIVE METABOLIC 65857 BUN 9 MG/DL 2011 Unknown COMPREHENSIVE METABOLIC 69496 ALBUMIN 4.1 GM/DL 2011 Unknown COMPREHENSIVE METABOLIC 90102 CHLORIDE 106 MMOL/L 05/29 Unknown COMPREHENSIVE METABOLIC 74601 BILI TOT 0.4 MG/DL 2011 Unknown COMPREHENSIVE METABOLIC 67943 ALK PHOS 87 U/L 2011 Unknown COMPREHENSIVE METABOLIC 56759 SODIUM 142 MMOL/L 05/29 Unknown COMPREHENSIVE METABOLIC 97047 CREATININE 0.79 MG/DL 05/09 Unknown COMPREHENSIVE METABOLIC 86129 CALCIUM 9.2 MG/DL 2011 Unknown COMPREHENSIVE METABOLIC 44221 POTASSIUM 3.6 MMOL/L 05/29 Unknown COMPREHENSIVE METABOLIC 77697 PROT TOT 6.5 GM/DL 2011 Unknown COMPREHENSIVE METABOLIC 35244 Glucose 78 MG/DL 2011 Unknown COMPREHENSIVE METABOLIC 66833 BICARB 27 MMOL/L 2011 Unknown COMPREHENSIVE METABOLIC 76745 ANION GAP 9 MEQ/L 2011 Unknown Procedures Procedure Codes Date PPPS, subseq visit CPT-4: G0439 08/03/2018 PPPS, subseq visit CPT-4: G0439 07/12/2016 CUR TOBACCO NON-USER CPT-4: G8457 04/15/2015 URINALYSIS NONAUTO W/O SCOPE CPT-4: 16869 07/05/2012 URINE CULTURE/ COLONY COUNT CPT-4: 36062 07/05/2012 PRESCRIP TRANSMIT VIA ERX SY CPT-4: G8553 07/05/2012 ROUTINE VENIPUNCTURE CPT-4: 94849 05/29/2012 ASSAY OF FREE THYROXINE CPT-4: 98418 05/29/2012 ASSAY THYROID STIM HORMONE CPT-4: 49216 05/29/2012 COMPREHEN METABOLIC PANEL CPT-4: 81251 05/29/2012 COMPLETE CBC W/AUTO DIFF WBC CPT-4: 73277 05/29/2012 PRESCRIP TRANSMIT VIA ERX SY CPT-4: G8553 05/29/2012 PRESCRIP TRANSMIT VIA ERX SY CPT-4: G8553 02/02/2012 PRESCRIP TRANSMIT VIA ERX SY CPT-4: G8553 05/27/2011 PRESCRIP TRANSMIT VIA ERX SY CPT-4: G8553 02/22/2011 MD SERVICE REQUIRED FOR PMD CPT-4: G0372 06/15/2010 ROUTINE VENIPUNCTURE CPT-4: 86473 10/20/2009 Vital Signs Date Vital 12/03/2019 Blood [...] 1: 114/66 Code: 8480-6 BMI: 25.8 Code: 30303-5 Heart Rate 1: 72 bpm Height: 5'2" [...] 1: 122/80 Code: 8480-6 BMI: 24.9 Code: 30187-4 Heart Rate 1: 100 bpm Height: 5'2" Respiratory Rate: 20 bpm Temperature: 37 .1 (C) / 98.8 (F) Weight: 136 lbs 11/03/2011 Blood Pressure 1: 104/60 Code: 8480-6 BMI: 24.1 Code: 84980-2 Heart Rate 1: 88 bpm Height: 5'2" Respiratory Rate: 20 bpm Temperature: 36 .6 (C) / 97.8 (F) Weight: 132 lbs 08/25/2011 Blood Pressure 1: 128/86 Code: 8480-6 BMI: 24.9 Code: 37736-9 Heart Rate 1: 76 bpm Height: 5'2" Respiratory Rate: 20 bpm Temperature: 36 .2 (C) / 97.2 (F) Weight: 136 lbs 05/27/2011 Blood Pressure 1: 130/90 Code: 8480-6 BMI: 25.1 Code: 11385-4 Heart Rate 1: 68 bpm Height: 5'2" [...] 1: 114/70 Code: 8480-6 BMI: 22.9 Code: 27521-5 Heart Rate 1: 92 bpm Height: 5'2" [...] Diagnosis: Sacral decubitus ulcer[ICD10: L89.159] Cherri OLSON [employer] CPT-4: 42601 12/03/2019 ([id number]) OFFICE/OUTPATIENT VISIT EST 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] Diagnosis: Muscle weakness (generalized)[ICD10: M62.81] Cherri MACHUCA [employer] [facility] CPT-4: 57552 10/01/2019 ([id number]) OFFICE/OUTPATIENT VISIT EST Diagnosis: Personal history of malignant neoplasm of brain[ICD10: Z85.841] Diagnosis: Muscle weakness (generalized)[ICD10: M62.81] Diagnosis: Hemiplegia, unspecified affecting left dominant side[ICD10: G81.92] Diagnosis: Contracture, 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] Cherri OLSON [employer] CPT-4: 29767 06/25/2019 ([id number]) OFFICE/OUTPATIENT VISIT EST Diagnosis: Attention and concentration deficit[ICD10: R41.840] Diagnosis: Abnormal weight loss[ICD10: R63.4] Cherri DANIEL [employer] [facility] CPT-4: 02005 02/05/2019 ([id number]) OFFICE/OUTPATIENT VISIT EST Diagnosis: Attention and concentration deficit[ICD10: R41.840] Cherri MACHUCA [employer] [facility] CPT-4: 33969 12/13/2018 ([id number]) OFFICE/OUTPATIENT VISIT EST Diagnosis: Laceration without foreign body of left upper arm, sequela[ICD10: S41.112S] Diagnosis: Other fatigue[ICD10: R53.83] Cherri HOLGUIN DO [facility] CPT-4: 60052 11/27/2018 ([id number]) OFFICE/OUTPATIENT VISIT EST Diagnosis: Gastro-esophageal reflux disease without esophagitis[ICD10: K21.9] Diagnosis: Contracture, 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] Diagnosis: Slow transit constipation[ICD10: K59.01] Cherri HOLGUIN DO [facility] CPT-4: 38144 09/25/2018 ([id number]) OFFICE/OUTPATIENT VISIT EST Diagnosis: Gastro-esophageal reflux disease without esophagitis[ICD10: K21.9] Diagnosis: Muscle weakness (generalized)[ICD10: M62.81] Maxine HOLGUIN [employer] [facility] CPT-4: 48697 06/22/2018 ([id number]) OFFICE/OUTPATIENT VISIT EST Diagnosis: Gastro-esophageal reflux disease without esophagitis[ICD10: K21.9] Cherri HOLGUIN DO [facility] CPT-4: 53028 04/06/2018 ([id number]) OFFICE/OUTPATIENT VISIT EST Diagnosis: Gastro-esophageal reflux disease without esophagitis[ICD10: K21.9] Maxine HOLGUIN DO [facility] CPT-4: 88151 03/06/2018 ([id number]) OFFICE/OUTPATIENT VISIT EST Diagnosis: 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] Diagnosis: Gastro-esophageal reflux disease without esophagitis[ICD10: K21.9] Diagnosis: Slow transit constipation[ICD10: K59.01] Diagnosis: Primary insomnia[ICD10: F51.01] Cherri HOLGUIN [employer] [facility] CPT-4: 26454 02/15/2018 ([id number]) OFFICE/OUTPATIENT VISIT EST Diagnosis: Muscle weakness (generalized)[ICD10: M62.81] Diagnosis: Gastro-esophageal reflux disease without esophagitis[ICD10: K21.9] Cherri HOLGUIN [facility] CPT-4: 53496 12/12/2017 ([id number]) OFFICE/OUTPATIENT VISIT EST Diagnosis: Nondisplaced fracture of medial malleolus of left tibia, subsequent encounter for closed fracture with delayed healing[ICD10: S82.55XG] Cherri HOLGUIN DO [facility] CPT-4: 79055 10/10/2017 OFFICE/OUTPATIENT VISIT EST Diagnosis: Acute upper respiratory infection, unspecified[ICD10: J06.9] Maxine HOLGUIN [facility] CPT-4: 83120 09/19/2017 ([id number]) OFFICE/OUTPATIENT VISIT EST Diagnosis: Muscle weakness (generalized)[ICD10: M62.81] Diagnosis: Other specified disorders of the skin and subcutaneous tissue[ICD10: L98.8] Cherri HOLGUIN [facility] CPT-4: 86977 08/04/2017 ([id number]) OFFICE/OUTPATIENT VISIT EST Diagnosis: Unspecified open wound of abdominal wall, left upper quadrant with penetration into peritoneal cavity, sequela[ICD10: S31.601S] Diagnosis: Muscle weakness (generalized)[ICD10: M62.81] Diagnosis: Personal history of malignant neoplasm of brain[ICD10: Z85.841] Cherri HOLGUIN [employer] [facility] CPT-4: 92627 07/12/2017 ([id number]) OFFICE/OUTPATIENT VISIT EST Diagnosis: Non-pressure chronic ulcer of skin of other sites with unspecified severity[ICD10: L98.499] Diagnosis: Tinea cruris[ICD10: B35.6] Cherri RUSHING [facility] CPT-4: 74216 05/30/2017 ([id number]) OFFICE/OUTPATIENT VISIT EST Diagnosis: Cellulitis of abdominal wall[ICD10: L03.311] Diagnosis: Cellulitis of chest wall[ICD10: L03.313] Cherri HOLGUIN [facility] CPT-4: 01538 05/02/2017 ([id number]) OFFICE/OUTPATIENT VISIT EST Diagnosis: Cellulitis of chest wall[ICD10: L03.313] Diagnosis: Muscle weakness (generalized)[ICD10: M62.81] Cherri HOLGUIN DO [facility] CPT-4: 54028 02/28/2017 ([id number]) OFFICE/OUTPATIENT VISIT EST Diagnosis: Cellulitis of abdominal wall[ICD10: L03.311] Cherri HOLGUIN DO [facility] CPT-4: 61435 12/06/2016 OFFICE/OUTPATIENT VISIT EST Diagnosis: Cutaneous abscess of abdominal wall[ICD10: L02.211] Diagnosis: Cellulitis of abdominal wall[ICD10: L03.311] Cherri HOLGUIN DO [facility] CPT-4: 35741 12/02/2016 ([id number]) OFFICE/OUTPATIENT VISIT EST Diagnosis: Cellulitis of abdominal wall[ICD10: L03.311] Diagnosis: Cutaneous abscess of abdominal wall[ICD10: L02.211] Cherri HOLGUIN DO [facility] CPT-4: 67022 12/01/2016 ([id number]) OFFICE/OUTPATIENT VISIT EST Diagnosis: Cutaneous abscess of abdominal wall[ICD10: L02.211] Diagnosis: Cellulitis of abdominal wall[ICD10: L03.311] Cherri HOLGUIN DO [facility] CPT-4: 36279 11/30/2016 ([id number]) OFFICE/OUTPATIENT VISIT EST Diagnosis: Muscle weakness (generalized)[ICD10: M62.81] Diagnosis: Slow transit constipation[ICD10: K59.01] Diagnosis: 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, 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] Cherri HOLGUIN DO [facility] CPT-4: 73893 10/26/2016 ([id number]) OFFICE/OUTPATIENT VISIT EST Diagnosis: Other seborrheic dermatitis[ICD10: L21.8] Cherri HOLGUIN DO [facility] CPT-4: 47704 09/13/2016 ([id number]) OFFICE/OUTPATIENT VISIT EST Diagnosis: Contracture, 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] Diagnosis: Nicotine dependence, cigarettes, uncomplicated[ICD10: F17.210] Diagnosis: Hemiplegia, unspecified affecting unspecified side[ICD10: G81.90] Diagnosis: Muscle weakness (generalized)[ICD10: M62.81] Cherri HOLGUIN DO [facility] CPT-4: 61528 05/11/2016 ([id number]) OFFICE/OUTPATIENT VISIT EST Diagnosis: Muscle weakness (generalized)[ICD10: M62.81] Diagnosis: Abnormal weight loss[ICD10: R63.4] Cherri HOLGUIN [employer] [facility] CPT-4: 42151 12/23/2015 ([id number]) OFFICE/OUTPATIENT VISIT EST Diagnosis: Torticollis[ICD10: M43.6] Diagnosis: Cervicalgia[ICD10: M54.2] Diagnosis: Basal cell carcinoma of skin, unspecified[ICD10: C44.91] Cherri HOLGUIN DO [facility] CPT-4: 85324 09/23/2015 ([id number]) OFFICE/OUTPATIENT VISIT EST Diagnosis: Constipation[ICD9: 564.00] Diagnosis: MUSCLE WEAKNESS-GENERAL[ICD9: 728.87] Cherri HOLGUIN [employer] [facility] CPT-4: 24812 04/15/2015 ([id number]) OFFICE/OUTPATIENT VISIT EST Diagnosis: MALAISE AND FATIGUE[ICD9: 780.79] Diagnosis: 3RD DEGREE BURN[ICD9: 949.3] Cherri HOLGUIN DO [facility] CPT-4: 36986 01/14/2015 ([id number]) OFFICE/OUTPATIENT VISIT EST Diagnosis: Constipation[ICD9: 564.00] Diagnosis: MUSCLE WEAKNESS-GENERAL[ICD9: 728.87] Diagnosis: 3RD DEGREE BURN[ICD9: 949.3] Cherri HOLGUIN DO [facility] CPT-4: 68885 10/29/2014 ([id number]) OFFICE/OUTPATIENT VISIT EST Diagnosis: Weakness generalized[ICD9: 780.79] Diagnosis: 3RD DEGREE BURN[ICD9: 949.3] Cherri HOLGUIN [employer] [facility] CPT-4: 17440 08/20/2014 ([id number]) OFFICE/OUTPATIENT VISIT EST Diagnosis: 3RD DEGREE BURN[ICD9: 949.3] Diagnosis: DYSPHAGIA NEC[ICD9: 787.29] Cherri MICHAELS [facility] CPT-4: 56929 06/04/2014 ([id number]) OFFICE/OUTPATIENT VISIT EST Diagnosis: 3RD DEGREE BURN[ICD9: 949.3] Diagnosis: Complication of skin graft[ICD9: 996.52] Diagnosis: TOBACCO USE DISORDER[ICD9: 305.1] Cherri HOLGUIN [facility] CPT-4: 82182 05/06/2014 ([id number]) OFFICE/OUTPATIENT VISIT EST Diagnosis: CELLULITIS[ICD9: 682.9] Cherri BRUNSON [facility] CPT-4: 87959 08/07/2013 ([id number]) OFFICE/OUTPATIENT VISIT EST Diagnosis: MUSCLE WEAKNESS-GENERAL[ICD9: 728.87] Diagnosis: MALAISE AND FATIGUE[ICD9: 780.79] Diagnosis: ABNORMALITY OF GAIT[ICD9: 781.2] [facility] 53454 05/23/2013 ([id number]) OFFICE/OUTPATIENT VISIT EST Diagnosis: MALAISE AND FATIGUE[ICD9: 780.79] Diagnosis: MUSCLE WEAKNESS-GENERAL[ICD9: 728.87] Diagnosis: HEMIPLEGIANOS SIDE NOS[ICD9: 342.90] Diagnosis: 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] Cherri HOLGUIN [facility] CPT-4: 08281 04/25/2013 ([id number]) OFFICE/OUTPATIENT VISIT EST Diagnosis: MUSCLE WEAKNESS-GENERAL[ICD9: 728.87] Diagnosis: ABNORMALITY OF GAIT[ICD9: 781.2] Diagnosis: MALAISE AND FATIGUE[ICD9: 780.79] Cherri HOLGUIN [employer] [facility] CPT-4: 96466 01/22/2013 OFFICE/OUTPATIENT VISIT EST Diagnosis: MALAISE AND FATIGUE[ICD9: 780.79] Diagnosis: MUSCLE WEAKNESS-GENERAL[ICD9: 728.87] Diagnosis: HEMIPLEGIANOS SIDE NOS[ICD9: 342.90] Diagnosis: ABNORMALITY OF GAIT[ICD9: 781.2] Cherri HOLGUIN [facility] CPT-4: 68277 10/18/2012 OFFICE/OUTPATIENT VISIT EST Diagnosis: ABNORMALITY OF GAIT[ICD9: 781.2] Diagnosis: MALAISE AND FATIGUE[ICD9: 780.79] Diagnosis: MUSCLE WEAKNESS-GENERAL[ICD9: 728.87] Cherri HOLGUIN [facility] CPT-4: 64546 09/25/2012 OFFICE/OUTPATIENT VISIT EST Diagnosis: CERVICALGIA[ICD9: 723.1] Diagnosis: ABNORMALITY OF GAIT[ICD9: 781.2] Diagnosis: MUSCLE WEAKNESS-GENERAL[ICD9: 728.87] Cherri HOLGUIN [facility] CPT-4: 51143 08/24/2012 ([id number]) OFFICE/OUTPATIENT VISIT EST Diagnosis: URINARY TRACT INFECTION[ICD9: 599.0] Diagnosis: Altered mental state[ICD9: 780.97] Diagnosis: MUSCLE WEAKNESS-GENERAL[ICD9: 728.87] Diagnosis: HEMIPLEGIANOS SIDE NOS[ICD9: 342.90] Diagnosis: Cervicalgia[ICD9: 723.1] Cherri CARIAS [facility] CPT-4: 07058 07/27/2012 OFFICE/OUTPATIENT VISIT EST Diagnosis: URINARY TRACT INFECTION[ICD9: 599.0] Diagnosis: Weakness generalized[ICD9: 780.79] Diagnosis: FEBRILE ILLNESS[ICD9: 780.60] Diagnosis: Vision disturbance[ICD9: 368.9] Tasneem Esquivel CHERRI HOLGUIN [facility] CPT-4: 42106 07/05/2012 OFFICE/OUTPATIENT VISIT EST Diagnosis: CONJUNCTIVITIS NOS[ICD9: 372.30] Diagnosis: MUSCLE WEAKNESS-GENERAL[ICD9: 728.87] Diagnosis: HEMIPLEGIANOS SIDE NOS[ICD9: 342.90] Diagnosis: ABNORMALITY OF GAIT[ICD9: 781.2] Cherri HOLGUIN [facility] CPT-4: 34061 05/29/2012 ([id number]) OFFICE/OUTPATIENT VISIT EST Diagnosis: MUSCLE WEAKNESS-GENERAL[ICD9: 728.87] Diagnosis: HEMIPLEGIANOS SIDE NOS[ICD9: 342.90] Diagnosis: ABNORMALITY OF GAIT[ICD9: 781.2] Diagnosis: DYSPEPSIA[ICD9: 536.8] Diagnosis: GERD[ICD9: 530.81] Cherri HOLGUIN [employer] [facility] CPT-4: 10121 02/02/2012 ([id number]) OFFICE/OUTPATIENT VISIT EST Diagnosis: MUSCLE WEAKNESS-GENERAL[ICD9: 728.87] Diagnosis: ABNORMALITY OF GAIT[ICD9: 781.2] Diagnosis: GERD[ICD9: 530.81] Cherri HOLGUIN [facility] CPT-4: 04842 11/03/2011 OFFICE/OUTPATIENT VISIT EST Diagnosis: MUSCLE WEAKNESS-GENERAL[ICD9: 728.87] Diagnosis: ABNORMALITY OF GAIT[ICD9: 781.2] Diagnosis: VOMITING ALONE[ICD9: 787.03] Diagnosis: GERD[ICD9: 530.81] Cherri HOLGUIN [facility] CPT-4: 66279 08/25/2011 OFFICE/OUTPATIENT VISIT EST Diagnosis: CONJUNCTIVITIS NOS[ICD9: 372.30] Cherri HOLGUIN [facility] CPT-4: 71443 05/27/2011 OFFICE/OUTPATIENT VISIT EST Diagnosis: MUSCLE WEAKNESS-GENERAL[ICD9: 728.87] Diagnosis: ABNORMALITY OF GAIT[ICD9: 781.2] Cherri HOLGUIN [facility] CPT-4: 49970 04/15/2011 OFFICE/OUTPATIENT VISIT EST Diagnosis: MALAISE AND FATIGUE[ICD9: 780.79] Diagnosis: MUSCLE WEAKNESS-GENERAL[ICD9: 728.87] Diagnosis: DEPRESSIVE DISORDER NEC[ICD9: 311] Diagnosis: ABNORMALITY OF GAIT[ICD9: 781.2] Cherri HOLGUIN [facility] CPT-4: 82213 03/22/2011 OFFICE/OUTPATIENT VISIT EST Cherri DORANTES [employer] [facility] CPT- 4: 10227 02/22/2011 ([id number]) OFFICE/OUTPATIENT VISIT EST [facility]ri [facility] CPT-4: 04051 01/26/2011 ([id number]) OFFICE/OUTPATIENT VISIT, EST Cherri Thomas [facility] CPT-4: 38422 06/15/2010 ([id number]) OFFICE/OUTPATIENT VISIT, EST Cherri Thomas [facility] CPT-4: 54484 05/04/2010 ([id number]) OFFICE/OUTPATIENT VISIT, EST Cherri Thomas [facility] CPT-4: 02729 03/03/2010 ([id number]) OFFICE/OUTPATIENT VISIT, ISRAEL Thomas [facility] CPT-4: 47013 10/20/2009 Plan of Care Planned Activity Notes Codes Status Date Visit Diagnosis Plan: Constipation Discussion: Doxy.me video with [place] nurse done Changing to bisacodyl suppository ICD-9 [...] : G73.7 10/01/2019 Appointment: Cherri Holguin WPtel: [address] [place], [place] [phone] [place] FOLLOW UP 10/01/2019 Visit Diagnosis Plan: Muscle weakness (generalized) Di scussion: PT and new wheelchair DC cymbalta Fwup 3mos ICD-9 : 780.79 ICD-10 : M62.81 06/25/2019 Appointment: Cherri Holguin WPtel: [facility] [place] Confirmed with nara. FOLLOW UP 06/25/2019 [...] : R63.4 02/05/2019 Appointment: Cherri Holguin WPtel: [address] [place], [place] [id number] [place] Confirmed with Nara Hankins 02/02 @ 11:07 am FOL LOW UP 02/05/2019 Appointment: Cherri Holguin WPtel: [address] [place], [place] [id number] [place] NO SHOW 01/24/2019 Visit Diagnosis Plan: Attention and concentration defi cit Discussion: Trial of strattera 10mg daily for 1 week then 25mg daily Recheck 6 weeks Stimulants have caused weight loss in past as patient is also poor, picky eater so with the stimulants her appetite worsens even more ICD-9 : 799.51 ICD-10 : R41.840 12/13/2018 Appointment: Cherri Holguin WPtel: [address] [place], [place] [id number] [place] confirmed with Morena FOLLOW UP 12/13/2018 [...] : R53.83 11/27/2018 Appointment: Cherri Holguin WPtel: [address] [place], [place] [id number] [place] confirmed with Karlee FOLLOW UP 11/27/2018 [...] K59.01 09/25/2018 Appointment: Cherri Holguin WPtel: [phone] [facility] [place] FOLLOW UP 09/25/2018 Visit Diagnosis Plan: Disorder of the skin and subcuta neous tissue, unspecified Discussion: referral to be sent to dr. hsieh for change in lesion on scalp. ICD-9 : 709.9 ICD-10 : L98.9 08/03/2018 Visit Diagnosis Plan: Encounter for [facility] examination with abnormal findings Discussion: [...] Z12.39 08/03/2018 Appointment: Maxine Glasgow [address] [facility] Annual Well Visit 08/03/2018 Visit Diagnosis [...] : K21.9 06/22/2018 Appointment: [facility] [facility] P 06/22/2018 Visit Diagnosis Plan: Gastro-esophageal reflux disease without esophagitis Discussion: Continue aciphex at 20m po daily Recheck 2mos ICD-9 : 530.81 ICD-10 : K21.9 04/06/2018 Appointment: Cherri Holguin WPtel: [phone] [facility] FOLLOW UP 04/06/2018 Patient Education: Patient Medication Summary Completed 04/06/2018 Appointment: Cherri Holguin WPtel: [phone] [facility] [place] RESCHEDULED 03/07/2018 Visit Diagnosis Plan: Gastro-esophageal reflux disease without esophagitis Discussion: patient had aciphex and prevacid on med list. order written out on patient's list to only give the aciphex as prescribed and not both. follow up in one month to assess medication efficacy and constipation. ICD-9 : 530.81 ICD-10 : K21.9 03/06/2018 Appointment: Maxine Glasgow [address] [facility] FOLLOW UP 03/06/2018 Patient Education: Patient Medication [...] ICD-10 : F51.01 02/15/2018 Appointment: Cherri Holguintel: [address] [place], [place] [id number] [place] FOLLOW UP 02/15/2018 Patient Education: Patient Medication Summary Completed 02/15/2018 Appointment: Cherri Holguin WPtel: [address] [place], [place] [phone] [place] [employer] called, stating that the [...] : M62.81 12/12/2017 Appointment: Cherri Holguin WPtel: [address] [place], [place] [phone] [place] FOLLOW UP 12/12/2017 Patient Education: Patient Medication Summary Completed 12/12/2017 Visit Diagnosis Plan: Nondisplaced fract ure of medial malleolus of left tibia, subsequent encounter for closed fracture with delayed healing Discussion: Add miacalcin nasal spray for next 2mos Fwup with ortho Follow Up: 2 months ICD-9 : V54.16 ICD-10 : S82.55XG 10/10/2017 Appointment: Cherri Holguintel: [address] [place], [place] [phone] [place] FOLLOW UP 10/10/2017 Patient Education: Patient Medication Summary Completed 10/10/2017 Appointment: Cherri Holguin WPtel: [address] [place], [place] [phone] [place] RESCHEDULED 10/04/2017 Referral: Alvarado Mercado WPtel: [address] [address] [place] Referral Initiated 10/04/2017 Visit Diagnosis Plan: Acute upper respiratory infectio n, unspecified Discussion: continue with tessalon perles as needed. increase fluids. notify if worsening symptoms including shortness of breath or fever. call or rtc later this week if no improvement. instructed patient to perform deep breathing exercises at home. ICD-9 : 465.9 ICD-10 : J06.9 09/19/2017 Appointment: Maxine Glasgow [address] [place] [address] ACUTE ILLNESS 09/19/2017 Patient Education: Patient Medication Summary Completed 09/19/2017 Appointment: Cherri Holguin WPtel: [address] [place] [address] [place] CANCELED 08/16/2017 Visit Diagnosis Plan: Muscle [...] L98.8 08/04/2017 Appointment: Cherri Holguin WPtel: [address] [place], [place] [id number] FOLLOW UP 08/04/2017 Patient Education: [...] : Z85.841 07/12/2017 Appointment: Cherri Holguin WPtel: [address] [place], [place] [phone] [facility] Follow Up 07/12/2017 Patient Education: Patient [...] : B35.6 05/30/2017 Appointment: Cherri Holguin WPtel: [address] [place] [address] FOLLOW UP 05/30/2017 Patient Education: Patient Medication Summary Completed 05/30/2017 Visit Diagnosis Plan: Cellulitis of abdominal wall Dis cussion: Finish keflex Referral to wound care ICD-9 : 682.2 ICD-10 : L03.311 05/02/2017 Appointment: Cherri Holguin WPtel: [address] [place], [place] [phone] FOLLOW UP 05/02/2017 Patient Education: Patient Medication Summary Completed 05/02/2017 Referral: Remigio Valdes WPtel: [address] [place], [place] [phone] [place] Referral Initiated 04/05/2017 Visit Diagnosis Plan: Cellulitis of chest wall Discuss ion: Keflex x1 week Continue daily dressing changes ICD-9 : 682.2 ICD-10 : L03.313 02/28/2017 Visit Diagnosis Plan: Muscle weakness (generalized) Di scussion: Stable Follow Up: 2 months ICD-9 : 728.87 ICD-10 : M62.81 02/28/2017 Appointment: Cherri Holguin WPtel: [address] [place], [place] [phone] 02/24 confirmed~sl FOLLOW UP 02/28/2017 Patient Education: Patient Medication Summary Completed 02/28/2017 Visit Diagnosis Plan: Cellulitis of abdominal wall Dis cussion: Healing and improving so will finish all of clindamycin and monitor wounds for any worsening or recurrence ICD-9 : 682.2 ICD-10 : L03.311 12/06/2016 Appointment: Cherri Holguintel: [address] [place], [place] [phone] WORK IN 12/06/2016 Patient Education: Patient Medication Summary Completed 12/06/2016 Visit Diagnosis Plan: Cutaneous abscess of abdominal w all Discussion: Continue clindamycin and dressing changes To ER this weekend if worsens Fwup with me in 4 days for recheck ICD-9 : 682.2 ICD-10 : L02.211 12/02/2016 Appointment: Cherri Holguintel: [address] [place], [place] [phone] FOLLOW UP 12/02/2016 Patient Education: Patient Medication [...] : L02.211 12/01/2016 Appointment: Cherri Holguin WPtel: [facility] [place] WORK IN 12/01/2016 Patient Education: Patient Medication Summary Completed 12/01/2016 Visit Diagnosis Plan: Cutaneous abscess of abdominal w all Discussion: Copious amounts of pus expressed until bloody discharge Start clindamycin Recheck tomorrow Erythema outline marked Follow Up: 1 days ICD-9 : 682.2 ICD-10 : L02.211 11/30/2016 Appointment: Cherri Holguintel: [address] [place], [place] [id number] 11/29 confirmed`sl FOLLOW UP 11/30/2016 Patient Education: Patient Medication Summary Completed 11/30/2016 Appointment: Cherri Holguin WPtel: [address] [place], [place] [phone] 11/10 scalp looks ok will discuss at [...] : K59.01 10/26/2016 Appointment: Cherri Holguin WPtel: [address] [place], [place] [phone] ACUTE ILLNESS 10/26/2016 Patient Education: Patient Medication Summary Completed 10/26/2016 Patient Education: Patient Medication Summary Completed 10/21/2016 Care Plan: CT HEAD/BRAIN W/O DYE [facility] : 87019-7 Pending 10/21/2016 Visit Diagnosis Plan: Other seborrheic dermatitis Disc ussion: Topical ketoconazole shampoo alternating with selsun blue Follow Up: 2 months ICD-9 : 706.3 ICD-10 : L21.8 09/13/2016 Appointment: Cherri Holguin WPtel: [address] [place], [place] [phone] 2/ confirm`sl FOLLOW UP 09/13/2016 Patient Education: Patient Medication Summary Completed 09/13/2016 Appointment: Cherri Holguin WPtel: [address] [place], [place] [phone] [place] CANCELED 07/13/2016 Visit Plan: Low-dose CT scan-45 PPD of C hest Check hemoccult Discussed updated CT of head to recheck meningioma Zostavax vaccine Will obtain last colonoscopy results Update lab 07/12/2016 Appointment: Cherri Holguin WPtel: [address] [place], [place] [phone] 07/08 confirmed~sl Annual Well Visit 07/12/2016 Patient Education: Patient Medication Summary Completed 07/12/2016 Visit Plan: Gets teeth extracted next mo nth then getting fitted for dentures so some of poor appetite is due to inability to eat certain things Continue current meds Defers flu shot 05/11/2016 Appointment: Cherri Holguin WPtel: [address] [place], [place] [phone] 05/10 confirmed~sl FOLLOW UP 05/11/2016 Patient Education: Patient Medication Summary Completed 05/11/2016 Visit Plan: Discussed nutrition and poss ible shakes as supplement until gets teeth completely pulled and fitted for full dentures Continue current meds Did have right scalp lesion removed 12/23/2015 Appointment: Cherri Holguin WPtel: [address] [place], [place] [phone] 12/21 confirmed-sp FOLLOW UP 12/23/2015 Patient Education: Patient Medication Summary Completed 12/23/2015 Referral: Tabitha Messer WPtel: [facility] [address] [facility] Spoke with Kayli at [facility] and gave her appt information Initiated 10/07/2015 Visit Plan: Start PT for ROM of neck Dis cussed milkshake in place of meal if does not eat at least 20% of meal--patient states she wants to lose weight and does not like the food served there See dermatology for removal of scalp lesion 09/23/2015 Appointment: Cherri Holguin WPtel: [address] [place], [place] [phone] 09/22/15 appt confirmed with Amber at [facility] FOLLOW UP 09/23/2015 Patient Education: Patient Medication Summary Completed 09/23/2015 Visit Plan: Stop miralax and senokot-s S tart dulcolax daily Patient asking for PT and OT again but admits they don't really help/she doesn't gain much from them 04/15/2015 Appointment: Cherri Holguin WPtel: [address] [place], [place] [phone] 04/11 confirmed with [facility] cn FOLLOW UP 04/15/2015 Patient Education: Patient Medication Summary Completed 04/15/2015 Visit Plan: Check CBC, CMP, TSH, free T4 , Vit D Continue current meds 01/14/2015 Appointment: Cherri Holguin WPtel: [address] [place] [address] ACUTE ILLNESS 01/14/2015 Patient Education: Patient Medication Summary Completed 01/14/2015 Visit Plan: Change to Senokot-S 2 po BID Add miralax Has been released by burn center for now 10/29/2014 Appointment: Cherri Holguin WPtel: [address] [place] [address] 10/28 with Madiha FOLLOW UP 10/29/2014 Patient Education: Patient Medication Summary Completed 10/29/2014 Visit Plan: Patient is wheelchair bound now Continue current meds Patient following with [facility] end of 08/20/2014 Appointment: Cherri Holguin WPtel: [address] [place] [address] MLP rescheduled due to cold weather 08/19 message with Madiha at [facility] FOLLOW U P 08/20/2014 Patient Education: Patient Medication Summary Completed 08/20/2014 Visit Plan: Patient is eating better--10 0% of meals and wants feeding tube out but waiting on swallow eval Following with burn center and doing dressing changes to left chest every 3 days Refuses flu and pneumonia shots Fwup 4mos if goes to [place] or 1mo if stays in [place] 06/04/2014 Appointment: Cherri Holguin WPtel: [address] [place] [address] FOLLOW UP 06/04/2014 Patient Education: Patient Medication Summary Completed 06/04/2014 Visit Plan: Patient sees burn center nex t week Explained importance of taking nutren routinely as needs nutrition Increase prilosec to 20mg po BID Smoking Cessation 05/06/2014 Appointment: Cherri Holguin WPtel: [address] [place], [place] [phone] 05/03 vm on patient phone 05/03 message with Maria L at [facility] Follow Up 05/06/2014 Patient Education: Patient Medication Summary Completed 05/06/2014 Visit Plan: Finish abx Brian wrap to left LE and elevate 08/07/2013 Appointment: Cherri Holguin WPtel: [address] [place] [address] Urgent/Quick Care Follow Up 07/10 Patient Education: Patient Medication Summary Completed 08/07/2013 Appointment: Cherri Holguin WPtel: [address] [place] [address] 07/18 appointment confirmed with patient 07/19 NO SHOW FOLLOW UP 07/19/2013 Visit Plan: Continue current meds Contin ue PT 05/23/2013 Appointment: Cherri Holguin WPtel: [address] [place] [address] 05/22 vm...appt confirmed FOLLOW UP 2012 Patient Education: Patient Medication Summary Completed 05/23/2013 Visit Plan: Long discussion about need f or 24hr care Pt wants to go home 04/25/2013 Appointment: Cherri Holguin WPtel: [address] [place] [address] Appt confirmed with Augusto at [facility] Follow Up 04/25/2013 Patient Education: Patient Medication Summary Completed 04/25/2013 [facility]ment[facility] [phone] [facility] [facility] at [facility] FO[facility] UP 04/23/2013 Visit Plan: Continue current meds 01/22/2013 [facility]ment: [facility] [phone] [facility] 01/22 vm left FOLLOW UP 01/22/2013 Patient Education: Patient Medication Summary Completed 01/22/2013 Appointment: Cherri Holguin WPtel: [phone] [id number] [facility] left message...patient called in a t 10:00am and said she was unable to get to her car. She rescheduled for 11/27 11am 11/24 left message 11/29 called to confirm, patient cancell ed due to no ride from [facility]. patient will call [facility] and see when they can bring her and then call us to schedule FOLLOW UP 11/30/2012 Visit Plan: Going to go home at the end of week with caregiver Continue current meds 10/18/2012 Appointment: Cherri Holguin WPtel: [address] [place], [place] [phone] 10/17 appt confirmed with Reyna FOLLOW UP 10/18/2012 Patient Education: Patient Medication Summary Completed 10/18/2012 Visit Plan: Continue and finish PT Sultana nue current meds Fwup October 19 or --pts 100 days is up October 21 09/25/2012 Appointment: Cherri Holguin WPtel: [phone] [id number] [place] [facility] since [facility] just droppe d her off. She was on shedule at one point but showed it was cancelled WORK IN Appointment: Cherri Holguin WPtel: [phone] [id number] 07/17 Cancelled 09/25 Appt - Patient has appointments on 07/08 & 07/27 FOLLOW UP 09/25/2012 Patient Education: Patient Medication Summary Completed 09/25/2012 Visit Plan: Continue current meds Pt wan ts to go home when her 100 days are up 08/24/2012 Appointment: Cherri Holguin WPtel: [address] [place], [place] [phone] FOLLOW UP 08/24/2012 Patient Education: Patient Medication Summary Completed 08/24/2012 Visit Plan: DC tramadol Repeat UA and ch edu UDS Start PT for neck Discussed neurology eval, but pt has been to several in past and even [facility] 07/27/2012 Appointment: Cherri Holguin WPtel: [address] [place], [place] [phone] FOLLOW UP 07/27/2012 Patient Education: Patient Medication Summary Completed 07/27/2012 Appointment: Cherri Holguin WPtel: [address] [place], [place] [phone] 07/17 - left message..07/17 left message with Antonella at [facility] pt has appt tomorrow and on I think the 07/18 appt was scheduled prior to hospitalization. 07/18 no showed. just entered [facility] so no show is forgiven FOLLOW UP 07/18/2012 Appointment: Tasneem Esquivel WPtel: [address] [place], [place] [phone] ACUTE ILLNESS 07/05/2012 Patient Education: Patient Medication Summary Completed 07/05/2012 Appointment: Cherri Holguin WPtel: [address] [place], [place] [phone] FOLLOW UP 05/29/2012 Patient Education: Patient Medication Summary Completed 05/29/2012 Appointment: Cherri Holguin WPtel: [address] [place], [place] [phone] [place] FOLLOW UP 02/02/2012 Patient Education: Patient Medication Summary Completed 02/02/2012 Visit Plan: Continue current meds Check CBC, CMP, TSH, Free T4, B12 11/03/2011 Appointment: Cherri Holguin WPtel: [address] [place] [address] FOLLOW UP 11/03/2011 Patient Education: Patient Medication Summary Completed 11/03/2011 Visit Plan: Adderall refilled Continue c urrent meds 08/25/2011 Appointment: Cherri Holguin WPtel: [address] [place] [address] FOLLOW UP 08/25/2011 Patient Education: Patient Medication Summary Completed 08/25/2011 Appointment: Cherri Holguin WPtel: [address] [place] [address] Appointment was confirmed. FOLLOW UP 08/16 Visit Plan: Esther is eye doctor. Will u se eye drop.(Cipro as she claims allergy (nausea). Pt. is accompanied by "grounds keepers" from [facility]. Written instructions given for pt. to be seen in follow up by Esther. Written RX also given to pt. for cipro eye drops. Pt. is instructed that the RX has been electronically sent to [facility]. 05/27/2011 Appointment: Tasneem Esquivel WPtel: [address] [place] [address] ACUTE ILLNESS 05/27/2011 Patient Education: Patient Medication Summary Completed 05/27/2011 Visit Plan: Continue increased dose of A dderall 04/15/2011 Appointment: Cherri Holguin WPtel: [address] [place], [place] [phone] FOLLOW UP 04/15/2011 Patient Education: Patient Medication Summary Completed 04/15/2011 Appointment: Cherri Holguin WPtel: [address] [place] [address] FOLLOW UP 03/22/2011 Patient Education: Patient Medication Summary Completed 03/22/2011 Appointment: Cherri Holguin WPtel: [address] [place], [place] [phone] FOLLOW UP 02/25/2011 Visit Plan: Trial of Wellbutrin XL 150mg q AM 02/22/2011 Appointment: Cherri Holguin WPtel: [address] [place] [address] FOLLOW UP 02/22/2011 Patient Education: Patient Medication Summary Completed 02/22/2011 Visit Plan: Continue PT Add Cymbalta 30m g daily 01/26/2011 Appointment: Cherri Holguin WPtel: [address] [place] [address] FOLLOW UP 01/26/2011 Patient Education: Patient Medication Summary Completed 01/26/2011 Visit Plan: Cont current meds and PT Exa m for Power chair completed Adderall rx refilled 06/15/2010 Appointment: Cherri Holguin WPtel: [address] [place] [address] ESTABLISHED PATIENT 06/15/2010 Patient Education: Patient Medication Summary Completed 06/15/2010 Visit Plan: To rehab today for PT/OT--I will follow on rehab unit 05/04/2010 Appointment: Cherri Holguin WPtel: [address] [place] [address] FOLLOW UP 05/04/2010 Patient Education: Patient Medication Summary Completed 05/04/2010 Visit Plan: Cont PT Cont Forteo Long dis cussion about living home--will discuss with PT when finishes this session 03/03/2010 Appointment: Cherri Holguin WPtel: [address] [place] [address] FOLLOW UP 03/03/2010 Patient Education: Patient Medication Summary Completed 03/03/2010 Visit Plan: EGD by Dr. Dang Pt agrees to restart Forteo 10/20/2009 Appointment: Cherri Holguin WPtel: [address] [place] [address] FOLLOW UP 10/20/2009 Patient Education: Patient Medication Summary Completed 10/20/2009 Referral: Antonio Gandhi WPtel: [phone] [id number] [place] Referral Initiated Instructions Comment . Low-dose [...] been to several in past and even [facility] . Continue current meds Check CBC, CMP, TSH, Free T4, B12 . Adderall refilled Continue current meds . 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 Will use eye bj p.(Cipro as she claims allergy (nausea). Pt. is accompanied by "grounds keepers" from [employer]. Written instructions given for pt. to be [...]
--- OUTSIDE RECORDS SUMMARY | 2020-03-05 20:50 | XMS REPORT | CCD ---
Author Author Rosario Holguin D.O. 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 Name Role Phone Cherri Holguin D.O., PP Unavailable CCM Unavailable Summary Purpose Interface Exchange Insurance Providers Payer name Policy type / Coverage type Covered democrat ID Effective Begin Date Effective End Date WPS MEDICARE PART B [place] Medicare Part B [id number] Unknown AARP Medicare Part B [id number] Unknown Family History Family History data not found Social History Social History Element Codes Description Effective Dates Tobacco history SNOMED CT: 9112342 Former smoker 04/15/2015 Allergies, Adverse Reactions, Alerts [...] Instructions Tessalon Perles 100 mg capsule RxNorm: 490847 1 Capsule(s) Oral Q8H as needed 12/03/2019 No Stop Date Active glycerin (adult) rectal suppository RxNorm: 1 Cardenas ppository Rectal and Tuesday12/03/2019 No Stop Date Active cyanocobalamin (vit B-12) 1,000 mcg/mL injection solution Rx Norm: 730682 1 Milliliter(s) Intramuscular every 2 weeks 06/26/2019 09/24/2019 Inacti ve cyanocobalamin (vit B-12) 1,000 mcg/mL injection solution Rx Norm: 428395 1 Milliliter(s) Intramuscular every 2 weeks 06/26/2019 06/25/2019 Inacti ve bisacodyl 10 mg rectal suppository RxNorm: 292515 1 Sup pository Rectal QD as needed 05/10/2019 No Stop Date Active glycerin (adult) rectal suppository RxNorm: 2322696 1 Suppositor y RTL BIW 07/25/2018 12/02/2019 Inactive rabeprazole 20 mg tablet,delayed release RxNorm: 547200 1 Table t(s) PO QD 03/01/2018 05/29/2018 Inactive replaces lansoprazol e Adderall XR 10 mg capsule,extended release RxNorm: 603249 1 Cap teresa(s) PO QAM 10/20/2017 12/19/2017 Inactive Tessalon Perles 100 mg capsule RxNorm: 666018 1 Capsule (s) PO TID as needed for cough 09/16/2017 09/30/2019 Inactive Cymbalta 30 mg capsule,delayed release RxNorm: 289351 1 Capsule (s) PO QD 08/17/2017 12/02/2019 Inactive nystatin 100,000 unit/gram topical powder RxNorm: 600861 1 Appl ication TOP BID 08/16/2017 02/14/2018 Inactive Adderall XR 10 mg capsule,extended release RxNorm: 425232 1 Cap teresa(s) PO QAM 08/11/2017 09/09/2017 Inactive Adderall XR 10 mg capsule,extended release RxNorm: 063012 1 Cap teresa(s) PO QAM 08/04/2017 08/03/2017 Inactive Adderall XR 10 mg capsule,extended release RxNorm: 787454 1 Cap teresa(s) PO QAM 08/04/2017 08/10/2017 Inactive Bactrim DS 800 mg-160 mg tablet RxNorm: 567789 1 Tablet(s) PO BID 1 08/28/2016 07/07/2017 Inactive clindamycin 300 mg capsule RxNorm: 154259 2 Capsule(s) PO TID doses for today and tomorrow 11/30/2016 05/01/2017 Inactive ketoconazole 2 % shampoo RxNorm: 652245 1 Application TOP twice a week 09/14/2016 05/01/2017 Inactive hydrocodone 5 mg-acetaminophen 325 mg tablet RxNorm: 037604 1 Tablet(s) PO Q6H as needed for pain 07/12/2016 05/01/2017 Inactive Cipro 250 mg tablet RxNorm: 907490 1 Tablet(s) PO BID 09/29/201509/09 Inactive cefuroxime axetil 250 mg tablet RxNorm: 547940 1 Tablet(s) PO BID 0 09/10/2015 09/16/2015 Inactive Micro-K 8 mEq capsule,extended release RxNorm: 661265 1 Capsule (s) PO QD 08/20/2015 08/16/2017 Inactive Micro-K 8 mEq capsule,extended release RxNorm: 208918 1 Capsule (s) PO QD 08/20/2015 08/19/2015 Inactive Adderall XR 20 mg capsule,extended release RxNorm: 601452 1 Cap teresa(s) PO QAM 04/30/2015 02/11/2016 Inactive hydroxyzine HCl 25 mg tablet RxNorm: 434618 1 Tablet(s) PO Q6H as needed for itching/hives 04/02/2015 09/12/2016 Inactive Miralax 17 gram oral powder packet RxNorm: 371437 17 Gr am(s) PO BID for constipation 02/26/2015 02/11/2016 Inactive Adderall XR 20 mg capsule,extended release RxNorm: 767573 1 Cap teresa(s) PO QAM 07/09/2014 08/07/2014 Inactive Adderall 20 mg tablet RxNorm: 050524 2 Tablet(s) PO QD 02/04/201408/2013 Inactive [AttnRPh: Saving apply/adjudicate RxGRP: SG20 RxBIN:[id number] RxPCN: ID#:[id number]] triamcinolone acetonide 0.1 % topical cream RxNorm: 6517365 1 Application TOP BID to affected area as needed 12/12/2013 01/13/2015 Inactive [ AttnRPh: Saving apply/adjudicate RxGRP:SG20 RxBIN:[id number] RxPCN: ID#:[id number]] Adderall 20 mg tablet RxNorm: 846592 2 Tablet(s) PO QD 12/04/2013 Inactive [AttnRPh: Saving apply/adjudicate RxGRP: SG20 RxBIN:[id number] RxPCN: ID#:[id number]] Adderall 20 mg tablet RxNorm: 494863 2 Tablet(s) PO QD 12/03/2013 Inactive [AttnRPh: Saving apply/adjudicate RxGRP: SG20 RxBIN:[id number] RxPCN: ID#:[id number]] Adderall 20 mg tablet RxNorm: 574740 2 Tablet(s) PO QD 11/02/2013 Inactive Adderall 20 mg tablet RxNorm: 454344 2 Tablet(s) PO QD 10/01/2013 Inactive meloxicam 7.5 mg tablet RxNorm: 101064 1 Tablet(s) PO QD 09/24/2013 0 08/19/2014 Inactive lisinopril 20 mg tablet RxNorm: 410991 1 Tablet(s) PO QD 09/24/2013 0 08/19/2014 Inactive Protonix 40 mg tablet,delayed release RxNorm: 329169 1 Tablet(s ) PO QD 09/24/2013 08/19/2014 Inactive Adderall 20 mg tablet RxNorm: 433542 2 Tablet(s) PO QD 08/29/2013 Inactive Adderall 20 mg tablet RxNorm: 932627 2 Tablet(s) PO QD 08/02/2013 Inactive hydroxyzine HCl 25 mg tablet RxNorm: 646273 1 Tablet(s) PO Q6H as needed 06/29/2013 08/19/2014 Inactive Adderall 20 mg tablet RxNorm: 521934 2 Tablet(s) PO QD 05/22/2013 Inactive Protonix 40 mg tablet,delayed release RxNorm: 594849 1 Tablet(s ) PO QD 05/15/2013 09/11/2013 Inactive meloxicam 7.5 mg tablet RxNorm: 019389 1 Tablet(s) PO QD 05/15/2013 0 09/11/2013 Inactive lisinopril 20 mg tablet RxNorm: 213245 1 Tablet(s) PO QD 05/15/2013 0 09/11/2013 Inactive Adderall 20 mg tablet RxNorm: 957091 2 Tablet(s) PO QD 04/02/2013 No Stop Date Active Adderall 20 mg tablet RxNorm: 373958 2 Tablet(s) PO QD 02/27/2013 No Stop Date Active Adderall 20 mg tablet RxNorm: 284105 2 Tablet(s) PO QD 01/22/2013 No Stop Date Active Adderall 20 mg tablet RxNorm: 081409 2 Tablet(s) PO QD 12/28/2012 No Stop Date Active Adderall 20 mg tablet RxNorm: 172710 2 Tablet(s) PO QD 12/01/2012 No Stop Date Active Adderall 20 mg tablet RxNorm: 802910 2 Tablet(s) PO QD 11/01/2012 No Stop Date Active K-Dur 20 mEq tablet,extended release RxNorm: 015672 1 Tablet(s) PO QD 10/19/2012 11/26/2018 Inactive meloxicam 7.5 mg tablet RxNorm: 162018 1 Tablet(s) PO QD 10/19/2012 0 04/16/2013 Inactive Protonix 40 mg tablet,delayed release RxNorm: 024550 1 Tablet(s ) PO QD 10/19/2012 04/16/2013 Inactive lisinopril 20 mg tablet RxNorm: 104640 1 Tablet(s) PO QD 10/19/2012 0 04/16/2013 Inactive Cipro 500 mg tablet RxNorm: 064637 1 Tablet(s) PO BID 07/05/201211/2011 Inactive Adderall XR 20 mg capsule,extended release RxNorm: 044661 2 Cap teresa(s) PO QAM 06/12/2012 07/26/2012 Inactive Adderall XR 20 mg capsule,extended release RxNorm: 139607 2 Cap teresa(s) PO QAM 05/16/2012 06/11/2012 Inactive Adderall XR 20 mg capsule,extended release RxNorm: 251178 2 Cap teresa(s) PO QAM 04/21/2012 05/15/2012 Inactive Adderall XR 20 mg capsule,extended release RxNorm: 123488 2 Cap teresa(s) PO QAM 02/16/2012 03/16/2012 Inactive Enablex 15 mg 24 hr Tab RxNorm: 361159 1 Tablet(s) PO QPM repla mady Vesicare 02/07/2012 05/28/2012 Inactive Enablex 15 mg 24 hr Tab RxNorm: 030629 1 Tablet(s) PO QPM repla mady Vesicare 02/07/2012 08/04/2012 Inactive Protonix 40 mg Tab RxNorm: 422075 1 Tablet(s) PO QD 02/07/20122011 Inactive Protonix 40 mg Tab RxNorm: 126840 1 Tablet(s) PO QD 02/02/20122011 Inactive Enablex 15 mg 24 hr Tab RxNorm: 373433 1 Tablet(s) PO QPM repla mady Vesicare 02/02/2012 02/06/2012 Inactive Adderall XR 20 mg 24 hr Cap RxNorm: 676383 2 Capsule(s) PO QAM 01/0602/15/2012 Inactive Adderall XR 20 mg 24 hr Cap RxNorm: 938915 2 Capsule(s) PO QAM 12/0601/15/2012 Inactive Adderall XR 20 mg 24 hr Cap RxNorm: 411615 2 Capsule(s) PO QAM 11/0612/16/2011 Inactive Adderall XR 20 mg 24 hr Cap RxNorm: 413459 2 Capsule(s) PO QAM 10/0611/17/2011 Inactive Adderall XR 20 mg 24 hr Cap RxNorm: 364016 2 Capsule(s) PO QAM 09/0910/24/2011 Inactive Prevacid 30 mg Cap RxNorm: 107885 1 Capsule(s) PO QD 07/30/201109/27 Inactive Adderall XR 20 mg 24 hr Cap RxNorm: 096234 2 Capsule(s) PO QAM 07/0908/28/2011 Inactive Adderall XR 20 mg 24 hr Cap RxNorm: 833214 2 Capsule(s) PO QAM 06/0807/21/2011 Inactive ciprofloxacin 0.3 % Eye Drops RxNorm: 283497 2 Drop(s) OPH Q2H 05/0905/31/2011 Inactive Adderall XR 20 mg 24 hr Cap RxNorm: 398268 2 Capsule(s) PO QAM 05/08 No Stop Date Active Wellbutrin XL 150 mg 24 hr Tab RxNorm: 763128 1 Tablet(s) PO QAM 04/14/2011 Inactive Vesicare 10 mg Tab RxNorm: 774437 1 Tablet(s) PO QD 12/24/20102011 Inactive Vesicare 10 mg Tab RxNorm: 847344 1 Tablet(s) PO QD 12/21/20102018 Inactive Adderall XR 30 mg 24 hr Cap RxNorm: 766196 1 Capsule(s) PO QD 11/1712/16/2010 Inactive Vesicare 10 mg Tab RxNorm: 809998 1 Tablet(s) PO QD 09/21/20102010 Inactive Adderall XR 30 mg 24 hr Cap RxNorm: 707474 1 Capsule(s) PO 09/17/19 11 10/16/2010 Inactive Adderall XR 30 mg 24 hr Cap RxNorm: 078174 1 Capsule(s) PO QAM 07/0911/26/2018 Inactive Adderall XR 30 mg 24 hr Cap RxNorm: 667668 1 Capsule(s) PO QAM 07/0908/03/2010 Inactive Adderall XR 20 mg 24 hr Cap RxNorm: 803327 2 Capsule(s) PO QD 01/2602/02/2010 Inactive Adderall XR 20 mg 24 hr Cap RxNorm: 063315 1 Capsule(s) PO QD 01/2605/03/2010 Inactive Forteo 20 mcg/dose (600 mcg/2.4 mL) Sub-Q Pen Injector RxNorm: 1 805372 SQ 12/30/2009 01/25/2011 Inactive hyoscyamine 0.125 mg sublingual tablet RxNorm: 4086299 1 Tablet(s) SL Q4H as needed for excessive secretions No Start Date Active Senokot-S 8.6 mg-50 mg tablet RxNorm: 1909007 2 Tablet(s) PO BID No Start Date Active rabeprazole 20 mg tablet,delayed release RxNorm: 809141 1 Table t(s) PO QD No Start Date Active Micro-K 10 10 mEq capsule,extended release RxNorm: 371913 1 Cap teresa(s) PO QD No Start Date Active docusate sodium 100 mg tablet RxNorm: 0659029 1 Tablet(s) PO Q8H as needed No Start Date Active ondansetron HCl 4 mg tablet RxNorm: 529548 1 Tablet(s) PO Q4H a s needed No Start Date Active Vitamin D3 5,000 unit tablet RxNorm: 269065 1 Tablet(s) PO QD No Star t Date Active bisacodyl 5 mg tablet RxNorm: 222609 1 Tablet(s) PO BID as needed N o Start Date Active aspirin 81 mg tablet RxNorm: 512827 1 Tablet(s) PO QD No Start Date Active Multivitamin And Mineral oral RxNorm: oral No Start Date Active Benadryl 1 % topical cream RxNorm: 3960433 TOP as needed for hiv es No Start Date Active K-Dur 20 mEq tablet,extended release RxNorm: 672594 1 Tablet(s) PO QD No Start Date 08/19/2014 Inactive Colace 100 mg capsule RxNorm: 5604688 1 Capsule(s) PO BID No Start Date 01/19/2017 Inactive ketoconazole 2 % shampoo RxNorm: 809275 1 Application TOP twice a week No Start Date 09/13/2016 Inactive ibuprofen 600 mg tablet RxNorm: 428180 1 Tablet(s) PO Q6H as ne eded No Start Date 06/21/2018 Inactive Zaditor 0.025 % Eye Drops RxNorm: 196265 1 Drop(s) OPH BID No Start Date 05/28/2012 Inactive senna 8.6 mg tablet RxNorm: 388486 2 Tablet(s) PO BID No Start Date 0 02/11/2016 Inactive senna 8.6 mg tablet RxNorm: 420695 1 Tablet(s) PO BID No Start Date 0 02/11/2016 Inactive Amoxil 500 mg capsule RxNorm: 268562 1 Capsule(s) PO BID No Start D ate 05/01/2017 Inactive lisinopril 20 mg tablet RxNorm: 590577 1 Tablet(s) PO QD No Start D ate 10/18/2012 Inactive Prevacid 30 mg Capsule, delayed release RxNorm: 938250 1 Capsul e(s) PO QD No Start Date 02/01/2012 Inactive Senokot-S 8.6 mg-50 mg Tab RxNorm: 6843498 2 Tablet(s) PO QD PRN No Start Date 03/02/2010 Inactive Cymbalta 30 mg capsule,delayed release RxNorm: 780966 1 Capsule (s) PO QD No Start Date 08/16/2017 Inactive ketoconazole 2 % topical cream RxNorm: 649649 1 Applica tion TOP BID to scaly eyebrows No Start Date 05/01/2017 Inactive lorazepam 0.5 mg tablet RxNorm: 074499 1 Tablet(s) PO Q4H as ne eded No Start Date 06/21/2018 Inactive Vitamin C 500 mg tablet RxNorm: 573460 1 Tablet(s) PO QD No Start D ate 01/21/2013 Inactive albuterol sulfate 2.5 mg/3 mL (0.083 %) Neb Solution RxNorm: 995215 Milliliter(s) INH 1 vial in nebulizer every 4 hours as needed No Start Date 01/21/2013 Inactive Adderall XR 20 mg 24 hr Cap RxNorm: 941446 1 Capsule(s) PO QAM No S tart Date 01/25/2011 Inactive Xanax 0.25 mg Tab RxNorm: 822873 1/2 Tablet(s) PO BID PRN No Start Date 03/02/2010 Inactive Tylenol Extra Strength 500 mg Tab RxNorm: 510521 2 Tablet(s) PO PRN No Start Date 08/24/2011 Inactive Adderall 20 mg tablet RxNorm: 092417 2 Tablet(s) PO QD No Start Date 10/31/2012 Inactive bisacodyl 5 mg tablet,delayed release RxNorm: 758375 1 Tablet(s) PO Q12H as needed No Start Date 02/04/2019 Inactive Tessalon Perles 100 mg capsule RxNorm: 156147 1 Capsule (s) PO TID as needed for cough No Start Date 09/15/2017 Inactive Vitamin D3 1,000 unit tablet RxNorm: 243415 3 Tablet(s) PO QD No St art Date 02/22/2017 Inactive meloxicam 7.5 mg tablet RxNorm: 870965 1 Tablet(s) PO QD No Start D ate 10/18/2012 Inactive Bactroban 2 % topical ointment RxNorm: 260916 1 Application TOP QD No Start Date 12/11/2017 Inactive Toviaz 8 mg 24 hr Tab RxNorm: 204534 1 Tablet(s) PO QD No Start Date 09/21/2010 Inactive Prevacid 15 mg capsule,delayed release RxNorm: 232745 Capsule(s ) PO QD No Start Date 02/28/2018 Inactive K-Dur 20 mEq tablet,extended release RxNorm: 9648477 1 Tablet(s) PO QD No Start Date 10/18/2012 Inactive Adderall XR 20 mg 24 hr Cap RxNorm: 066224 2 Capsule(s) PO QAM No S tart Date 05/24/2011 Inactive Calcium with Vitamin D 600 mg-400 unit Tab RxNorm: 062317 1 Tab let(s) PO QD No Start Date 08/24/2011 Inactive Miralax 17 gram oral powder packet RxNorm: 843120 17 Gram(s) PO BID as needed No Start Date 11/26/2018 Inactive Zestril 10 mg Tab RxNorm: 906509 1 Tablet(s) PO QD No Start Date 10/06 Inactive baclofen 10 mg tablet RxNorm: 087913 1 Tablet(s) PO QHS No Start Da te 09/11/2015 Inactive Tums 500 Oral RxNorm: Oral No Start Date 01/13/2015 Inactive Senokot-S 8.6 mg-50 mg tablet RxNorm: 2449288 1 Tablet(s) PO BID No Start Date 11/26/2018 Inactive Prozac 10 mg Tab RxNorm: 688254 1 Capsule(s) PO QD No Start Date 10/06 Inactive Elavil 10 mg tablet RxNorm: 639684 1 Tablet(s) PO QHS No Start Date 0 12/12/2018 Inactive Dulcolax Stool Softener (docusate) 100 mg capsule RxNorm: 12 32651 1 Capsule(s) PO Q8H as needed No Start Date 01/19/2017 Inactive Adderall XR 30 mg 24 hr Cap RxNorm: 545145 1 Capsule(s) PO QAM No S tart Date 04/14/2011 Inactive Milk of Magnesia-Cascara 15.25 % oral suspension RxNorm: oral No Start Date 11/26/2018 Inactive Tylenol 325 mg tablet RxNorm: 198537 2 Tablet(s) PO Q4H as needed N o Start Date 11/26/2018 Inactive Prilosec 20 mg capsule,delayed release RxNorm: 805652 1 Capsule (s) PO BID No Start Date 09/08/2014 Inactive Tylenol 8 Hour 650 mg tablet,extended release RxNorm: 280872 0 1 Tablet(s) PO Q4H as needed No Start Date 11/26/2018 Inactive Vitamin D3 2,000 unit tablet RxNorm: 874591 1 Tablet(s) PO QD No St art Date 02/22/2017 Inactive nystatin 100,000 unit/gram topical powder RxNorm: 971636 1 Appl ication TOP BID No Start Date 08/15/2017 Inactive morphine 20 mg/5 mL (4 mg/mL) oral solution RxNorm: 732922 .25 Milliliter(s) PO Q4H as needed No Start Date 09/24/2018 Inactive Forteo 20 mcg/dose (750 mcg/3 mL) Sub-Q Pen Injector RxNorm: 143 5115 SQ QD No Start Date 01/21/2010 Inactive ciprofloxacin 0.3 % Eye Drops RxNorm: 466292 2 Drop(s) OPH TID to affected eye No Start Date 08/23/2012 Inactive bisacodyl 5 mg tablet RxNorm: 995585 1 Tablet(s) PO BID No Start Da te 02/11/2016 Inactive Avosil 2 %-0.2 % topical ointment RxNorm: 1 Appl ication TOP Q8H as needed to burn sites No Start Date 11/26/2018 Inactive Milk of Alexa 800 mg/5 mL oral suspension RxNorm: 141051 Milliliter(s) PO as needed No Start Date 06/20/2018 Inactive Atarax 25 mg tablet RxNorm: 956431 1 Tablet(s) PO Q4H prn itchi ng/hives No Start Date 08/24/2011 Inactive Adderall XR 30 mg 24 hr Cap RxNorm: 247591 1 Capsule(s) PO QAM No S tart Date 07/26/2010 Inactive Prevacid 30 mg Cap RxNorm: 966868 1 Capsule(s) PO QD No Start Date Inactive Vitamin C 500 mg tablet RxNorm: 811116 1 Tablet(s) PO BID No Start Date 07/11/2016 Inactive Vistaril 25 mg capsule RxNorm: 963835 1 Capsule(s) PO Q4H PRN No St art Date 03/02/2010 Inactive tramadol 50 mg tablet RxNorm: 731106 1 Tablet(s) PO TID as need ed for pain No Start Date 01/21/2013 Inactive Multivitamin & Mineral Formula tablet RxNorm: 1 Tablet(s) PO Q D No Start Date 06/22/2018 Inactive hydrocodone 5 mg-acetaminophen 325 mg tablet RxNorm: 186144 1 Tablet(s) PO Q4H as needed for pain No Start Date 06/24/2019 Inactive Multivitamin & Mineral Formula Oral RxNorm: Oral No Start Da te 03/02/2010 Inactive Miralax 17 gram oral powder packet RxNorm: 931290 17 Gr am(s) PO QPM for constipation No Start Date 02/25/2015 Inactive Percocet 5 mg-325 mg tablet RxNorm: 7964997 1-2 Tablet(s) PO Q4H as needed No Start Date 09/24/2018 Inactive triamcinolone acetonide 0.1 % topical cream RxNorm: 9426083 1 Application TOP TID to affected area as needed No Start Date 12/12/2013 Inactive rabeprazole 20 mg tablet,delayed release RxNorm: 316841 1 Table t(s) PO QD No Start Date 09/24/2018 Inactive Protonix 40 mg tablet,delayed release RxNorm: 759246 1 Tablet(s ) PO QD No Start Date 10/18/2012 Inactive Mobic 7.5 mg Tab RxNorm: 204974 1 Tablet(s) PO BID No Start Date 10/06 Inactive Sinemet CR 50 mg-200 mg Tab RxNorm: 702755 1 Tablet(s) PO QD No Sta rt Date 03/02/2010 Inactive Adderall XR 20 mg 24 hr Cap RxNorm: 663589 2 Capsule(s) PO QD No St art Date 02/02/2010 Inactive Medication Administered No Medication Administered data Immunizations No Immunization data Results Observation Observation Code Item Item Code Result Date S ervice Location COMPLETE BLOOD COUNT [id number] WBC 7.3 10e9/L 05/29/20 12 Unknown COMPLETE BLOOD COUNT [id number] RBC 5.20 10e12/L 2011 Unknown COMPLETE BLOOD COUNT [id number] HGB 15.3 g/dL 2 Unknown COMPLETE BLOOD COUNT [id number] HCT DET 45.9 % 2 Unknown COMPLETE BLOOD COUNT [id number] MCV 88.3 fL 2 Unknown COMPLETE BLOOD COUNT [id number] MCH 29.4 pg 2 Unknown COMPLETE BLOOD COUNT [id number] MCHC 33.3 g/dL 2 Unknown COMPLETE BLOOD COUNT [id number] PLT 341 10e9/L 05/29/20 12 Unknown COMPLETE BLOOD COUNT [id number] MPV 10.1 fL 2 Unknown COMPLETE BLOOD COUNT [id number] ASHLEY % 63.2 % 2 Unknown COMPLETE BLOOD COUNT [id number] LY % 27.4 % 2 Unknown COMPLETE BLOOD COUNT [id number] MON % 7.6 % 2 Unknown COMPLETE BLOOD COUNT [id number] EOS % 1.5 % 2 Unknown COMPLETE BLOOD COUNT [id number] BASO % 0.3 % 2 Unknown COMPLETE BLOOD COUNT [id number] RDW 13.6 % 2 Unknown COMPLETE BLOOD COUNT [id number] ABS ASHLEY 4.61 10e9/L 012 Unknown COMPLETE BLOOD COUNT [id number] ABS LYMPH 2.00 10e9/L 012 Unknown COMPLETE BLOOD COUNT [id number] ABS MONO 0.55 10e9/L 012 Unknown COMPLETE BLOOD COUNT [id number] ABS EOS 0.11 10e9/L 012 Unknown COMPLETE BLOOD COUNT [id number] ABS BASO 0.02 10e9/L 012 Unknown COMPLETE BLOOD COUNT [id number] RDW-SD 43.5 fL 2 Unknown THYROID STIMULATING HORMONE 66935 TSH 1.487 uIU/ML 05/29/2012 Unknown GFR CALC [id number] GFR AA >60 ML/MIN 05/29/2012 Unknown GFR CALC [id number] GFR NON-AA >60 ML/MIN 05/29/2012 Unknown FREE T4 32071 FREE T4 1.20 NG/DL 05/29/2012 Unknown COMPREHENSIVE METABOLIC 67337 AST 17 U/L 2011 Unknown COMPREHENSIVE METABOLIC 64514 ALT 16 IU/L 2011 Unknown COMPREHENSIVE METABOLIC 25085 BUN 9 MG/DL 2011 Unknown COMPREHENSIVE METABOLIC 20040 ALBUMIN 4.1 GM/DL 2011 Unknown COMPREHENSIVE METABOLIC 09045 CHLORIDE 106 MMOL/L 05/29 Unknown COMPREHENSIVE METABOLIC 32322 BILI TOT 0.4 MG/DL 2011 Unknown COMPREHENSIVE METABOLIC 77426 ALK PHOS 87 U/L 2011 Unknown COMPREHENSIVE METABOLIC 52259 SODIUM 142 MMOL/L 05/29 Unknown COMPREHENSIVE METABOLIC 52732 CREATININE 0.79 MG/DL 05/09 Unknown COMPREHENSIVE METABOLIC 17496 CALCIUM 9.2 MG/DL 2011 Unknown COMPREHENSIVE METABOLIC 26838 POTASSIUM 3.6 MMOL/L 05/29 Unknown COMPREHENSIVE METABOLIC 05028 PROT TOT 6.5 GM/DL 2011 Unknown COMPREHENSIVE METABOLIC 29327 Glucose 78 MG/DL 2011 Unknown COMPREHENSIVE METABOLIC 82018 BICARB 27 MMOL/L 2011 Unknown COMPREHENSIVE METABOLIC 68009 ANION GAP 9 MEQ/L 2011 Unknown Procedures Procedure Codes Date PPPS, subseq visit CPT-4: G0439 08/03/2018 PPPS, subseq visit CPT-4: G0439 07/12/2016 CUR TOBACCO NON-USER CPT-4: G8457 04/15/2015 URINALYSIS NONAUTO W/O SCOPE CPT-4: 48023 07/05/2012 URINE CULTURE/ COLONY COUNT CPT-4: 98845 07/05/2012 PRESCRIP TRANSMIT VIA ERX SY CPT-4: G8553 07/05/2012 ROUTINE VENIPUNCTURE CPT-4: 38085 05/29/2012 ASSAY OF FREE THYROXINE CPT-4: 40691 05/29/2012 ASSAY THYROID STIM HORMONE CPT-4: 28850 05/29/2012 COMPREHEN METABOLIC PANEL CPT-4: 14372 05/29/2012 COMPLETE CBC W/AUTO DIFF WBC CPT-4: 42810 05/29/2012 PRESCRIP TRANSMIT VIA ERX SY CPT-4: G8553 05/29/2012 PRESCRIP TRANSMIT VIA ERX SY CPT-4: G8553 02/02/2012 PRESCRIP TRANSMIT VIA ERX SY CPT-4: G8553 05/27/2011 PRESCRIP TRANSMIT VIA ERX SY CPT-4: G8553 02/22/2011 MD SERVICE REQUIRED FOR PMD CPT-4: G0372 06/15/2010 ROUTINE VENIPUNCTURE CPT-4: 09603 10/20/2009 Vital Signs Date Vital 12/03/2019 Blood [...] 1: 114/66 Code: 8480-6 BMI: 25.8 Code: 82463-1 Heart Rate 1: 72 bpm Height: 5'2" [...] 1: 122/80 Code: 8480-6 BMI: 24.9 Code: 21312-1 Heart Rate 1: 100 bpm Height: 5'2" Respiratory Rate: 20 bpm Temperature: 37 .1 (C) / 98.8 (F) Weight: 136 lbs 11/03/2011 Blood Pressure 1: 104/60 Code: 8480-6 BMI: 24.1 Code: 39529-5 Heart Rate 1: 88 bpm Height: 5'2" Respiratory Rate: 20 bpm Temperature: 36 .6 (C) / 97.8 (F) Weight: 132 lbs 08/25/2011 Blood Pressure 1: 128/86 Code: 8480-6 BMI: 24.9 Code: 21569-6 Heart Rate 1: 76 bpm Height: 5'2" Respiratory Rate: 20 bpm Temperature: 36 .2 (C) / 97.2 (F) Weight: 136 lbs 05/27/2011 Blood Pressure 1: 130/90 Code: 8480-6 BMI: 25.1 Code: 52383-3 Heart Rate 1: 68 bpm Height: 5'2" [...] 1: 114/70 Code: 8480-6 BMI: 22.9 Code: 88494-7 Heart Rate 1: 92 bpm Height: 5'2" [...] Diagnosis: Sacral decubitus ulcer[ICD10: L89.159] Cherri OLSON [employer] CPT-4: 74639 12/03/2019 ([id number]) OFFICE/OUTPATIENT VISIT EST 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] Diagnosis: Muscle weakness (generalized)[ICD10: M62.81] Cherri MACHUCA [employer] CPT-4: 11761 10/01/2019 ([id number]) OFFICE/OUTPATIENT VISIT EST Diagnosis: Personal history of malignant neoplasm of brain[ICD10: Z85.841] Diagnosis: Muscle weakness (generalized)[ICD10: M62.81] Diagnosis: Hemiplegia, unspecified affecting left dominant side[ICD10: G81.92] Diagnosis: Contracture, 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] Cherri OLSON [employer] CPT-4: 01002 06/25/2019 ([id number]) OFFICE/OUTPATIENT VISIT EST Diagnosis: Attention and concentration deficit[ICD10: R41.840] Diagnosis: Abnormal weight loss[ICD10: R63.4] Cherri DANIEL [employer] CPT-4: 85103 02/05/2019 ([id number]) OFFICE/OUTPATIENT VISIT EST Diagnosis: Attention and concentration deficit[ICD10: R41.840] Cherri MACHUCA [employer] CPT-4: 78544 12/13/2018 ([id number]) OFFICE/OUTPATIENT VISIT EST Diagnosis: Laceration without foreign body of left upper arm, sequela[ICD10: S41.112S] Diagnosis: Other fatigue[ICD10: R53.83] Cherri HOLGUIN DO [facility] CPT-4: 12789 11/27/2018 ([id number]) OFFICE/OUTPATIENT VISIT EST Diagnosis: Gastro-esophageal reflux disease without esophagitis[ICD10: K21.9] Diagnosis: Contracture, 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] Diagnosis: Slow transit constipation[ICD10: K59.01] Cherri HOLGUIN DO [facility] CPT-4: 16209 09/25/2018 ([id number]) OFFICE/OUTPATIENT VISIT EST Diagnosis: Gastro-esophageal reflux disease without esophagitis[ICD10: K21.9] Diagnosis: Muscle weakness (generalized)[ICD10: M62.81] Maxine HOLGUIN [employer] [facility] CPT-4: 48283 06/22/2018 ([id number]) OFFICE/OUTPATIENT VISIT EST Diagnosis: Gastro-esophageal reflux disease without esophagitis[ICD10: K21.9] Cherri HOLGUIN DO [facility] CPT-4: 09010 04/06/2018 ([id number]) OFFICE/OUTPATIENT VISIT EST Diagnosis: Gastro-esophageal reflux disease without esophagitis[ICD10: K21.9] Maxine HOLGUIN DO [facility] CPT-4: 91261 03/06/2018 ([id number]) OFFICE/OUTPATIENT VISIT EST Diagnosis: 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] Diagnosis: Gastro-esophageal reflux disease without esophagitis[ICD10: K21.9] Diagnosis: Slow transit constipation[ICD10: K59.01] Diagnosis: Primary insomnia[ICD10: F51.01] Cherri HOLGUIN [employer] [facility] CPT-4: 41361 02/15/2018 ([id number]) OFFICE/OUTPATIENT VISIT EST Diagnosis: Muscle weakness (generalized)[ICD10: M62.81] Diagnosis: Gastro-esophageal reflux disease without esophagitis[ICD10: K21.9] Cherri HOLGUIN [facility] CPT-4: 29850 12/12/2017 ([id number]) OFFICE/OUTPATIENT VISIT EST Diagnosis: Nondisplaced fracture of medial malleolus of left tibia, subsequent encounter for closed fracture with delayed healing[ICD10: S82.55XG] Cherri HOLGUIN DO [facility] CPT-4: 18591 10/10/2017 OFFICE/OUTPATIENT VISIT EST Diagnosis: Acute upper respiratory infection, unspecified[ICD10: J06.9] Maxine HOLGUIN [facility] CPT-4: 95469 09/19/2017 ([id number]) OFFICE/OUTPATIENT VISIT EST Diagnosis: Muscle weakness (generalized)[ICD10: M62.81] Diagnosis: Other specified disorders of the skin and subcutaneous tissue[ICD10: L98.8] Cherri HOLGUIN [facility] CPT-4: 16976 08/04/2017 ([id number]) OFFICE/OUTPATIENT VISIT EST Diagnosis: Unspecified open wound of abdominal wall, left upper quadrant with penetration into peritoneal cavity, sequela[ICD10: S31.601S] Diagnosis: Muscle weakness (generalized)[ICD10: M62.81] Diagnosis: Personal history of malignant neoplasm of brain[ICD10: Z85.841] Cherri HOLGUIN [employer] [facility] CPT-4: 16528 07/12/2017 ([id number]) OFFICE/OUTPATIENT VISIT EST Diagnosis: Non-pressure chronic ulcer of skin of other sites with unspecified severity[ICD10: L98.499] Diagnosis: Tinea cruris[ICD10: B35.6] Cherri RUSHING [facility] CPT-4: 55830 05/30/2017 ([id number]) OFFICE/OUTPATIENT VISIT EST Diagnosis: Cellulitis of abdominal wall[ICD10: L03.311] Diagnosis: Cellulitis of chest wall[ICD10: L03.313] Cherri HOLGUIN [facility] CPT-4: 26208 05/02/2017 ([id number]) OFFICE/OUTPATIENT VISIT EST Diagnosis: Cellulitis of chest wall[ICD10: L03.313] Diagnosis: Muscle weakness (generalized)[ICD10: M62.81] Cherri HOLGUIN DO [facility] CPT-4: 68721 02/28/2017 ([id number]) OFFICE/OUTPATIENT VISIT EST Diagnosis: Cellulitis of abdominal wall[ICD10: L03.311] Cherri HOLGUIN DO [facility] CPT-4: 58663 12/06/2016 OFFICE/OUTPATIENT VISIT EST Diagnosis: Cutaneous abscess of abdominal wall[ICD10: L02.211] Diagnosis: Cellulitis of abdominal wall[ICD10: L03.311] Cherri HOLGUIN DO [facility] CPT-4: 98522 12/02/2016 ([id number]) OFFICE/OUTPATIENT VISIT EST Diagnosis: Cellulitis of abdominal wall[ICD10: L03.311] Diagnosis: Cutaneous abscess of abdominal wall[ICD10: L02.211] Cherri HOLGUIN DO [facility] CPT-4: 78134 12/01/2016 ([id number]) OFFICE/OUTPATIENT VISIT EST Diagnosis: Cutaneous abscess of abdominal wall[ICD10: L02.211] Diagnosis: Cellulitis of abdominal wall[ICD10: L03.311] Cherri HOLGUIN DO [facility] CPT-4: 25809 11/30/2016 ([id number]) OFFICE/OUTPATIENT VISIT EST Diagnosis: Muscle weakness (generalized)[ICD10: M62.81] Diagnosis: Slow transit constipation[ICD10: K59.01] Diagnosis: 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, 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] Cherri HOLGUIN DO [facility] CPT-4: 33210 10/26/2016 ([id number]) OFFICE/OUTPATIENT VISIT EST Diagnosis: Other seborrheic dermatitis[ICD10: L21.8] Cherri HOLGUIN DO [facility] CPT-4: 33402 09/13/2016 ([id number]) OFFICE/OUTPATIENT VISIT EST Diagnosis: Contracture, 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] Diagnosis: Nicotine dependence, cigarettes, uncomplicated[ICD10: F17.210] Diagnosis: Hemiplegia, unspecified affecting unspecified side[ICD10: G81.90] Diagnosis: Muscle weakness (generalized)[ICD10: M62.81] Cherri HOLGUIN DO [facility] CPT-4: 29493 05/11/2016 ([id number]) OFFICE/OUTPATIENT VISIT EST Diagnosis: Muscle weakness (generalized)[ICD10: M62.81] Diagnosis: Abnormal weight loss[ICD10: R63.4] Cherri HOLGUIN [employer] [facility] CPT-4: 29954 12/23/2015 ([id number]) OFFICE/OUTPATIENT VISIT EST Diagnosis: Torticollis[ICD10: M43.6] Diagnosis: Cervicalgia[ICD10: M54.2] Diagnosis: Basal cell carcinoma of skin, unspecified[ICD10: C44.91] Cherri HOLGUIN DO [facility] CPT-4: 04892 09/23/2015 ([id number]) OFFICE/OUTPATIENT VISIT EST Diagnosis: Constipation[ICD9: 564.00] Diagnosis: MUSCLE WEAKNESS-GENERAL[ICD9: 728.87] Cherri HOLGUIN [employer] [facility] CPT-4: 54891 04/15/2015 ([id number]) OFFICE/OUTPATIENT VISIT EST Diagnosis: MALAISE AND FATIGUE[ICD9: 780.79] Diagnosis: 3RD DEGREE BURN[ICD9: 949.3] Cherri HOLGUIN DO [facility] CPT-4: 24464 01/14/2015 ([id number]) OFFICE/OUTPATIENT VISIT EST Diagnosis: Constipation[ICD9: 564.00] Diagnosis: MUSCLE WEAKNESS-GENERAL[ICD9: 728.87] Diagnosis: 3RD DEGREE BURN[ICD9: 949.3] Cherri HOLGUIN DO [facility] CPT-4: 78048 10/29/2014 ([id number]) OFFICE/OUTPATIENT VISIT EST Diagnosis: Weakness generalized[ICD9: 780.79] Diagnosis: 3RD DEGREE BURN[ICD9: 949.3] Cherri HOLGUIN [employer] [facility] CPT-4: 10198 08/20/2014 ([id number]) OFFICE/OUTPATIENT VISIT EST Diagnosis: 3RD DEGREE BURN[ICD9: 949.3] Diagnosis: DYSPHAGIA NEC[ICD9: 787.29] Cherri MICHAELS [facility] CPT-4: 96106 06/04/2014 ([id number]) OFFICE/OUTPATIENT VISIT EST Diagnosis: 3RD DEGREE BURN[ICD9: 949.3] Diagnosis: Complication of skin graft[ICD9: 996.52] Diagnosis: TOBACCO USE DISORDER[ICD9: 305.1] Cherri HOLGUIN [facility] CPT-4: 29340 05/06/2014 ([id number]) OFFICE/OUTPATIENT VISIT EST Diagnosis: CELLULITIS[ICD9: 682.9] Cherri BRUNSON [facility] CPT-4: 63911 08/07/2013 ([id number]) OFFICE/OUTPATIENT VISIT EST Diagnosis: MUSCLE WEAKNESS-GENERAL[ICD9: 728.87] Diagnosis: MALAISE AND FATIGUE[ICD9: 780.79] Diagnosis: ABNORMALITY OF GAIT[ICD9: 781.2] [facility]: 33106 05/23/2013 ([id number]) OFFICE/OUTPATIENT VISIT EST Diagnosis: MALAISE AND FATIGUE[ICD9: 780.79] Diagnosis: MUSCLE WEAKNESS-GENERAL[ICD9: 728.87] Diagnosis: HEMIPLEGIANOS SIDE NOS[ICD9: 342.90] Diagnosis: 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] Cherri HOLGUIN [facility] CPT-4: 13167 04/25/2013 ([id number]) OFFICE/OUTPATIENT VISIT EST Diagnosis: MUSCLE WEAKNESS-GENERAL[ICD9: 728.87] Diagnosis: ABNORMALITY OF GAIT[ICD9: 781.2] Diagnosis: MALAISE AND FATIGUE[ICD9: 780.79] Cherri HOLGUIN [employer] [facility] CPT-4: 44287 01/22/2013 OFFICE/OUTPATIENT VISIT EST Diagnosis: MALAISE AND FATIGUE[ICD9: 780.79] Diagnosis: MUSCLE WEAKNESS-GENERAL[ICD9: 728.87] Diagnosis: HEMIPLEGIANOS SIDE NOS[ICD9: 342.90] Diagnosis: ABNORMALITY OF GAIT[ICD9: 781.2] Cherri HOLGUIN [facility] CPT-4: 15801 10/18/2012 OFFICE/OUTPATIENT VISIT EST Diagnosis: ABNORMALITY OF GAIT[ICD9: 781.2] Diagnosis: MALAISE AND FATIGUE[ICD9: 780.79] Diagnosis: MUSCLE WEAKNESS-GENERAL[ICD9: 728.87] Cherri HOLGUIN [facility] CPT-4: 12716 09/25/2012 OFFICE/OUTPATIENT VISIT EST Diagnosis: CERVICALGIA[ICD9: 723.1] Diagnosis: ABNORMALITY OF GAIT[ICD9: 781.2] Diagnosis: MUSCLE WEAKNESS-GENERAL[ICD9: 728.87] Cherri HOLGUIN [facility] CPT-4: 69223 08/24/2012 ([id number]) OFFICE/OUTPATIENT VISIT EST Diagnosis: URINARY TRACT INFECTION[ICD9: 599.0] Diagnosis: Altered mental state[ICD9: 780.97] Diagnosis: MUSCLE WEAKNESS-GENERAL[ICD9: 728.87] Diagnosis: HEMIPLEGIANOS SIDE NOS[ICD9: 342.90] Diagnosis: Cervicalgia[ICD9: 723.1] Cherri CARIAS [facility] CPT-4: 32948 07/27/2012 OFFICE/OUTPATIENT VISIT EST Diagnosis: URINARY TRACT INFECTION[ICD9: 599.0] Diagnosis: Weakness generalized[ICD9: 780.79] Diagnosis: FEBRILE ILLNESS[ICD9: 780.60] Diagnosis: Vision disturbance[ICD9: 368.9] Tasneem Esquivel CHERRI HOLGUIN [facility] CPT-4: 14369 07/05/2012 OFFICE/OUTPATIENT VISIT EST Diagnosis: CONJUNCTIVITIS NOS[ICD9: 372.30] Diagnosis: MUSCLE WEAKNESS-GENERAL[ICD9: 728.87] Diagnosis: HEMIPLEGIANOS SIDE NOS[ICD9: 342.90] Diagnosis: ABNORMALITY OF GAIT[ICD9: 781.2] Cherri HOLGUIN [facility] CPT-4: 22819 05/29/2012 ([id number]) OFFICE/OUTPATIENT VISIT EST Diagnosis: MUSCLE WEAKNESS-GENERAL[ICD9: 728.87] Diagnosis: HEMIPLEGIANOS SIDE NOS[ICD9: 342.90] Diagnosis: ABNORMALITY OF GAIT[ICD9: 781.2] Diagnosis: DYSPEPSIA[ICD9: 536.8] Diagnosis: GERD[ICD9: 530.81] Cherri HOLGUIN [employer] [facility] CPT-4: 77274 02/02/2012 ([id number]) OFFICE/OUTPATIENT VISIT EST Diagnosis: MUSCLE WEAKNESS-GENERAL[ICD9: 728.87] Diagnosis: ABNORMALITY OF GAIT[ICD9: 781.2] Diagnosis: GERD[ICD9: 530.81] Cherri HOLGUIN [facility] CPT-4: 80258 11/03/2011 OFFICE/OUTPATIENT VISIT EST Diagnosis: MUSCLE WEAKNESS-GENERAL[ICD9: 728.87] Diagnosis: ABNORMALITY OF GAIT[ICD9: 781.2] Diagnosis: VOMITING ALONE[ICD9: 787.03] Diagnosis: GERD[ICD9: 530.81] Cherri HOLGUIN [facility] CPT-4: 35661 08/25/2011 OFFICE/OUTPATIENT VISIT EST Diagnosis: CONJUNCTIVITIS NOS[ICD9: 372.30] Cherri HOLGUIN [facility] CPT-4: 45285 05/27/2011 OFFICE/OUTPATIENT VISIT EST Diagnosis: MUSCLE WEAKNESS-GENERAL[ICD9: 728.87] Diagnosis: ABNORMALITY OF GAIT[ICD9: 781.2] Cherri HOLGUIN [facility] CPT-4: 25141 04/15/2011 OFFICE/OUTPATIENT VISIT EST Diagnosis: MALAISE AND FATIGUE[ICD9: 780.79] Diagnosis: MUSCLE WEAKNESS-GENERAL[ICD9: 728.87] Diagnosis: DEPRESSIVE DISORDER NEC[ICD9: 311] Diagnosis: ABNORMALITY OF GAIT[ICD9: 781.2] Cherri HOLGUIN [facility] CPT-4: 50323 03/22/2011 OFFICE/OUTPATIENT VISIT EST Cherri DORANTES [employer] [facility] CPT- 4: 33528 02/22/2011 ([id number]) OFFICE/OUTPATIENT VISIT EST [facility] CPT-4: 18367 01/26/2011 ([id number]) OFFICE/OUTPATIENT VISIT, EST Cherri Thomas [facility] CPT-4: 77132 06/15/2010 ([id number]) OFFICE/OUTPATIENT VISIT, EST Cherri Thomas [facility] CPT-4: 23986 05/04/2010 ([id number]) OFFICE/OUTPATIENT VISIT, EST Cherri Thomas [facility] CPT-4: 92220 03/03/2010 ([id number]) OFFICE/OUTPATIENT VISIT, ISRAEL Thomas [facility] [employer] CPT-4: 58900 10/20/2009 Plan of Care Planned Activity Notes Codes Status Date Visit Diagnosis Plan: Constipation Discussion: Doxy.me video with [place] nurse done Changing to bisacodyl suppository ICD-9 [...] : G73.7 10/01/2019 Appointment: Cherri Holguin WPtel: [address] [place], [place] [phone] [place] FOLLOW UP 10/01/2019 Visit Diagnosis Plan: Muscle weakness (generalized) Di scussion: PT and new wheelchair DC cymbalta Fwup 3mos ICD-9 : 780.79 ICD-10 : M62.81 06/25/2019 Appointment: Cherri Holguin WPtel: [facility] [place] Confirmed with nara. FOLLOW UP [...] : R63.4 02/05/2019 Appointment: Cherri Holguin WPtel: [address] [place], [place] [address] [place] Confirmed with Nara Hankins 02/02 @ 11:07 am FOL LOW UP 02/05/2019 Appointment: Cherri Holguin WPtel: [address] [place], [place] [address] [place] NO SHOW 01/24/2019 Visit Diagnosis Plan: Attention and concentration defi cit Discussion: Trial of strattera 10mg daily for 1 week then 25mg daily Recheck 6 weeks Stimulants have caused weight loss in past as patient is also poor, picky eater so with the stimulants her appetite worsens even more ICD-9 : 799.51 ICD-10 : R41.840 12/13/2018 Appointment: Cherri Holguin WPtel: [address] [place], [place] [address] [place] confirmed with Morena FOLLOW UP 12/13/2018 [...] : R53.83 11/27/2018 Appointment: Cherri Holguin WPtel: [address] [place], [place] [address] [place] confirmed with Karlee FOLLOW UP 11/27/2018 [...] K59.01 09/25/2018 Appointment: Cherri Holguin WPtel: [address] [facility] [place] FOLLOW UP 09/25/2018 Visit Diagnosis Plan: Disorder of the skin and subcuta neous tissue, unspecified Discussion: referral to be sent to dr. hsieh for change in lesion on scalp. ICD-9 : 709.9 ICD-10 : L98.9 08/03/2018 Visit Diagnosis Plan: Encounter for [facility] adult medical examination with abnormal findings [...] Z12.39 08/03/2018 Appointment: Maxine Glasgow [address] [facility] Annual Well Visit 08/03/2018 Visit Diagnosis Plan: [...] : K21.9 06/22/2018 [facility] [facility] 06/22/2018 Visit Diagnosis Plan: Gastro-esophageal reflux disease without esophagitis Discussion: Continue aciphex at 20m po daily Recheck 2mos ICD-9 : 530.81 ICD-10 : K21.9 04/06/2018 Appointment: Cherri Holguin WPtel: [address] [facility] FOLLOW UP 04/06/2018 Patient Education: Patient Medication Summary Completed 04/06/2018 Appointment: Cherri Holguin WPtel: [address] [facility] [place] RESCHEDULED 03/07/2018 Visit Diagnosis Plan: Gastro-esophageal reflux disease without esophagitis Discussion: patient had aciphex and prevacid on med list. order written out on patient's list to only give the aciphex as prescribed and not both. follow up in one month to assess medication efficacy and constipation. ICD-9 : 530.81 ICD-10 : K21.9 03/06/2018 Appointment: Maxine Glasgow [address] [facility] FOLLOW UP 03/06/2018 Patient Education: Patient [...] ICD-10 : F51.01 02/15/2018 Appointment: Cherri Holguintel: [address] [place], [place] [address] [place] FOLLOW UP 02/15/2018 Patient Education: Patient Medication Summary Completed 02/15/2018 Appointment: Cherri Holguin WPtel: [address] [place], [place] [phone] [place] [employer] transportation called, stating that the [...] : M62.81 12/12/2017 Appointment: Cherri Holguin WPtel: [address] [place], [place] [phone] [place] FOLLOW UP 12/12/2017 Patient Education: Patient Medication Summary Completed 12/12/2017 Visit Diagnosis Plan: Nondisplaced fract ure of medial malleolus of left tibia, subsequent encounter for closed fracture with delayed healing Discussion: Add miacalcin nasal spray for next 2mos Fwup with ortho Follow Up: 2 months ICD-9 : V54.16 ICD-10 : S82.55XG 10/10/2017 Appointment: Cherri Holguintel: [address] [place], [place] [phone] [place] FOLLOW UP 10/10/2017 Patient Education: Patient Medication Summary Completed 10/10/2017 Appointment: Cherri Holguin WPtel: [address] [place], [place] [phone] [place] RESCHEDULED 10/04/2017 Referral: Alvarado Mercado WPtel: [address] [address] [place] Referral Initiated 10/04/2017 Visit Diagnosis Plan: Acute upper respiratory infectio n, unspecified Discussion: continue with tessalon perles as needed. increase fluids. notify if worsening symptoms including shortness of breath or fever. call or rtc later this week if no improvement. instructed patient to perform deep breathing exercises at home. ICD-9 : 465.9 ICD-10 : J06.9 09/19/2017 Appointment: Maxine Glasgow [address] [place] [address] ACUTE ILLNESS 09/19/2017 Patient Education: Patient Medication Summary Completed 09/19/2017 Appointment: Cherri Holguin WPtel: [address] [place] [address] [place] CANCELED 08/16/2017 Visit Diagnosis Plan: Muscle [...] : L98.8 08/04/2017 Appointment: Cherri Holguin WPtel: [address] [place], [place] [phone] FOLLOW UP 08/04/2017 Patient Education: Patient [...] : Z85.841 07/12/2017 Appointment: Cherri Holguin WPtel: [address] [place], [place] [phone] [facility] Follow Up 07/12/2017 Patient Education: Patient Medication Summary Completed 07/12/2017 Visit Diagnosis Plan: 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 Valeds for further debridement Follow Up: 2 months ICD-9 : 707.8 ICD-10 : L98.499 05/30/2017 Visit Diagnosis Plan: Tinea cruris Discussion: Difluca n for 1 week ICD-9 : 110.3 ICD-10 : B35.6 05/30/2017 Appointment: Cherri Holguin WPtel: [address] [place] [address] FOLLOW UP 05/30/2017 Patient Education: Patient Medication Summary Completed 05/30/2017 Visit Diagnosis Plan: Cellulitis of abdominal wall Dis cussion: Finish keflex Referral to wound care ICD-9 : 682.2 ICD-10 : L03.311 05/02/2017 Appointment: Cherri Holguin WPtel: [address] [place], [place] [phone] FOLLOW UP 05/02/2017 Patient Education: Patient Medication Summary Completed 05/02/2017 Referral: Remigio Valdes WPtel: [address] [place], [place] [phone] [place] Referral Initiated 04/05/2017 Visit Diagnosis Plan: Cellulitis of chest wall Discuss ion: Keflex x1 week Continue daily dressing changes ICD-9 : 682.2 ICD-10 : L03.313 02/28/2017 Visit Diagnosis Plan: Muscle weakness (generalized) Di scussion: Stable Follow Up: 2 months ICD-9 : 728.87 ICD-10 : M62.81 02/28/2017 Appointment: Cherri Holguin WPtel: [address] [place], [place] [phone] 02/24 confirmed~sl FOLLOW UP 02/28/2017 Patient Education: Patient Medication Summary Completed 02/28/2017 Visit Diagnosis Plan: Cellulitis of abdominal wall Dis cussion: Healing and improving so will finish all of clindamycin and monitor wounds for any worsening or recurrence ICD-9 : 682.2 ICD-10 : L03.311 12/06/2016 Appointment: Cherri Holguintel: [address] [place], [place] [phone] WORK IN 12/06/2016 Patient Education: Patient Medication Summary Completed 12/06/2016 Visit Diagnosis Plan: Cutaneous abscess of abdominal w all Discussion: Continue clindamycin and dressing changes To ER this weekend if worsens Fwup with me in 4 days for recheck ICD-9 : 682.2 ICD-10 : L02.211 12/02/2016 Appointment: Cherri Holguintel: [address] [place], [place] [phone] FOLLOW UP 12/02/2016 Patient Education: Patient Medication [...] : L02.211 12/01/2016 Appointment: Cherri Holguin WPtel: [facility] [place] WORK IN 12/01/2016 Patient Education: Patient Medication Summary Completed 12/01/2016 Visit Diagnosis Plan: Cutaneous abscess of abdominal w all Discussion: Copious amounts of pus expressed until bloody discharge Start clindamycin Recheck tomorrow Erythema outline marked Follow Up: 1 days ICD-9 : 682.2 ICD-10 : L02.211 11/30/2016 Appointment: Cherri Holguintel: [address] [place], [place] [id number] 11/29 confirmed`sl FOLLOW UP 11/30/2016 Patient Education: Patient Medication Summary Completed 11/30/2016 Appointment: Cherri Holguin WPtel: [address] [place], [place] [phone] 11/10 scalp looks ok will discuss at [...] : K59.01 10/26/2016 Appointment: Cherri Holguin WPtel: [address] [place], [place] [phone] ACUTE ILLNESS 10/26/2016 Patient Education: Patient Medication Summary Completed 10/26/2016 Patient Education: Patient Medication Summary Completed 10/21/2016 Care Plan: CT HEAD/BRAIN W/O [facility] : 34144-6 Pending 10/21/2016 Visit Diagnosis Plan: Other seborrheic dermatitis Disc ussion: Topical ketoconazole shampoo alternating with selsun blue Follow Up: 2 months ICD-9 : 706.3 ICD-10 : L21.8 09/13/2016 Appointment: Cherri Holguin WPtel: [address] [place], [place] [phone] 2/ confirm`sl FOLLOW UP 09/13/2016 Patient Education: Patient Medication Summary Completed 09/13/2016 Appointment: Cherri Holguin WPtel: [address] [place], [place] [phone] [place] CANCELED 07/13/2016 Visit Plan: Low-dose CT scan-45 PPD of C hest Check hemoccult Discussed updated CT of head to recheck meningioma Zostavax vaccine Will obtain last colonoscopy results Update lab 07/12/2016 Appointment: Cherri Holguin WPtel: [address] [place], [place] [phone] 07/08 confirmed~sl Annual Well Visit 07/12/2016 Patient Education: Patient Medication Summary Completed 07/12/2016 Visit Plan: Gets teeth extracted next mo nth then getting fitted for dentures so some of poor appetite is due to inability to eat certain things Continue current meds Defers flu shot 05/11/2016 Appointment: Cherri Holguin WPtel: [address] [place], [place] [phone] 05/10 confirmed~sl FOLLOW UP 05/11/2016 Patient Education: Patient Medication Summary Completed 05/11/2016 Visit Plan: Discussed nutrition and poss ible shakes as supplement until gets teeth completely pulled and fitted for full dentures Continue current meds Did have right scalp lesion removed 12/23/2015 Appointment: Cherri Holguin WPtel: [address] [place], [place] [phone] 12/21 confirmed-sp FOLLOW UP 12/23/2015 Patient Education: Patient Medication Summary Completed 12/23/2015 Referral: Tabitha Messer WPtel: [facility] [address] [facility] Spoke with Kayli at [facility] and gave her appt information Initiated 10/07/2015 Visit Plan: Start PT for ROM of neck Dis cussed milkshake in place of meal if does not eat at least 20% of meal--patient states she wants to lose weight and does not like the food served there See dermatology for removal of scalp lesion 09/23/2015 Appointment: Cherri Holguin WPtel: [address] [place], [place] [phone] 09/22/15 appt confirmed with Amber at [facility] FOLLOW UP 09/23/2015 Patient Education: Patient Medication Summary Completed 09/23/2015 Visit Plan: Stop miralax and senokot-s S tart dulcolax daily Patient asking for PT and OT again but admits they don't really help/she doesn't gain much from them 04/15/2015 Appointment: Cherri Holguin WPtel: [address] [place], [place] [phone] 04/11 confirmed with [facility] FOLLOW UP 04/15/2015 Patient Education: Patient Medication Summary Completed 04/15/2015 Visit Plan: Check CBC, CMP, TSH, free T4 , Vit D Continue current meds 01/14/2015 Appointment: Cherri Holguin WPtel: [address] [place] [address] ACUTE ILLNESS 01/14/2015 Patient Education: Patient Medication Summary Completed 01/14/2015 Visit Plan: Change to Senokot-S 2 po BID Add miralax Has been released by burn center for now 10/29/2014 Appointment: Cherri Holguin WPtel: [address] [place] [address] 10/28 with Madiha FOLLOW UP 10/29/2014 Patient Education: Patient Medication Summary Completed 10/29/2014 Visit Plan: Patient is wheelchair bound now Continue current meds Patient following with [facility] end of 08/20/2014 Appointment: Cherri Holguin WPtel: [address] [place] [address] MLP rescheduled due to cold weather 08/19 message with Madiha at [facility] FOLLOW U P 08/20/2014 Patient Education: Patient Medication Summary Completed 08/20/2014 Visit Plan: Patient is eating better--10 0% of meals and wants feeding tube out but waiting on swallow eval Following with burn center and doing dressing changes to left chest every 3 days Refuses flu and pneumonia shots Fwup 4mos if goes to [place] or 1mo if stays in [place] 06/04/2014 Appointment: Cherri Holguin WPtel: [address] [place] [address] FOLLOW UP 06/04/2014 Patient Education: Patient Medication Summary Completed 06/04/2014 Visit Plan: Patient sees burn center nex t week Explained importance of taking nutren routinely as needs nutrition Increase prilosec to 20mg po BID Smoking Cessation 05/06/2014 Appointment: Cherri Holguin WPtel: [address] [place], [place] [phone] 05/03 vm on patient phone 05/03 message with Maria L at [facility] Follow Up 05/06/2014 Patient Education: Patient Medication Summary Completed 05/06/2014 Visit Plan: Finish abx Brian wrap to left LE and elevate 08/07/2013 Appointment: Cherri Holguin WPtel: [address] [place] [address] Urgent/Quick Care Follow Up 07/10 Patient Education: Patient Medication Summary Completed 08/07/2013 Appointment: Cherri Holguin WPtel: [address] [place] [address] 07/18 appointment confirmed with patient 07/19 NO SHOW FOLLOW UP 07/19/2013 Visit Plan: Continue current meds Contin ue PT 05/23/2013 Appointment: Cherri Holguin WPtel: [address] [place] [address] 05/22 vm...appt confirmed FOLLOW UP 2012 Patient Education: Patient Medication Summary Completed 05/23/2013 Visit Plan: Long discussion about need f or 24hr care Pt wants to go home 04/25/2013 Appointment: Cherri Holguin WPtel: [address] [place] [address] Appt confirmed with Augusto at [facility] Follow Up 04/25/2013 Patient Education: Patient Medication Summary Completed 04/25/2013 App[facility]ment[facility] [phone] [facility] [facility] at [facility] FOLLOW UP 04/23/2013 Visit Plan: Continue current meds 01/22/2013 Appointment: [facility] [phone] [facility] 01/22 vm left FOLLOW UP 01/22/2013 Patient Education: Patient Medication Summary Completed 01/22/2013 Appointment: [phone] [id number] [facility]/20 left message...patient called in a t 10:00am and said she was unable to get to her car. She rescheduled for 11/27 11am 11/24 left message 11/29 called to confirm, patient cancell ed due to no ride from [facility]. patient will call [facility] and see when they can bring her and then call us to schedule FOLLOW UP 11/30/2012 Visit Plan: Going to go home at the end of week with caregiver Continue current meds 10/18/2012 Appointment: Cherri Holguin WPtel: [phone] [place], [place] [phone] 10/17 appt confirmed with Reyna FOLLOW UP 10/18/2012 Patient Education: Patient Medication Summary Completed 10/18/2012 Visit Plan: Continue and finish PT Sultana nue current meds Fwup October 19 or --pts 100 days is up October 21 09/25/2012 Appointment: Cher[facility] [phone] [id number] [place] worked in since longterm just droppe d her off. She was on shedule at one point but showed it was cancelled WORK IN Appointment: Cher[facility]gu[facility] [phone] [id number] 07/17 Cancelled 09/25 Appt - Patient has appointments on 07/08 & 07/27 FOLLOW UP 09/25/2012 Patient Education: Patient Medication Summary Completed 09/25/2012 Visit Plan: Continue current meds Pt wan ts to go home when her 100 days are up 08/24/2012 Appointment: Cherri Holguin WPtel: [address] [place], [place] [phone] FOLLOW UP 08/24/2012 Patient Education: Patient Medication Summary Completed 08/24/2012 Visit Plan: DC tramadol Repeat UA and ch edu UDS Start PT for neck Discussed neurology eval, but pt has been to several in past and even [facility] 07/27/2012 Appointment: Cherri Holguin WPtel: [address] [place], [place] [phone] FOLLOW UP 07/27/2012 Patient Education: Patient Medication Summary Completed 07/27/2012 Appointment: Cherri Holguin WPtel: [address] [place], [place] [phone] 07/17 - left message..07/17 left message with Antonella at [facility] pt has appt tomorrow and on I think the 07/18 appt was scheduled prior to hospitalization. 07/18 no showed. just entered longterm so no show is forgiven FOLLOW UP 07/18/2012 Appointment: Tasneem Esquivel WPtel: [address] [place], [place] [phone] ACUTE ILLNESS 07/05/2012 Patient Education: Patient Medication Summary Completed 07/05/2012 Appointment: Cherri Holguin WPtel: [address] [place], [place] [phone] FOLLOW UP 05/29/2012 Patient Education: Patient Medication Summary Completed 05/29/2012 Appointment: Cherri Holguin WPtel: [address] [place], [place] [phone] [place] FOLLOW UP 02/02/2012 Patient Education: Patient Medication Summary Completed 02/02/2012 Visit Plan: Continue current meds Check CBC, CMP, TSH, Free T4, B12 11/03/2011 Appointment: Cherri Holguin WPtel: [address] [place] [address] FOLLOW UP 11/03/2011 Patient Education: Patient Medication Summary Completed 11/03/2011 Visit Plan: Adderall refilled Continue c urrent meds 08/25/2011 Appointment: Cherri Holguin WPtel: [address] [place] [address] FOLLOW UP 08/25/2011 Patient Education: Patient Medication Summary Completed 08/25/2011 Appointment: Cherri Holguin WPtel: [address] [place] [address] Appointment was confirmed. FOLLOW UP 08/16 Visit Plan: Esther is eye doctor. Will u se eye drop.(Cipro as she claims allergy (nausea). Pt. is accompanied by "grounds keepers" from [facility]. Written instructions given for pt. to be seen in follow up by Esther. Written RX also given to pt. for cipro eye drops. Pt. is instructed that the RX has been electronically sent to [facility]. 05/27/2011 Appointment: Tasneem Esquivel WPtel: [address] [place] [address] ACUTE ILLNESS 05/27/2011 Patient Education: Patient Medication Summary Completed 05/27/2011 Visit Plan: Continue increased dose of A dderall 04/15/2011 Appointment: Cherri Holguin WPtel: [address] [place], [place] [phone] FOLLOW UP 04/15/2011 Patient Education: Patient Medication Summary Completed 04/15/2011 Appointment: Cherri Holguin WPtel: [address] [place] [address] FOLLOW UP 03/22/2011 Patient Education: Patient Medication Summary Completed 03/22/2011 Appointment: Cherri Holguin WPtel: [address] [place], [place] [phone] FOLLOW UP 02/25/2011 Visit Plan: Trial of Wellbutrin XL 150mg q AM 02/22/2011 Appointment: Cherri Holguin WPtel: [address] [place] [address] FOLLOW UP 02/22/2011 Patient Education: Patient Medication Summary Completed 02/22/2011 Visit Plan: Continue PT Add Cymbalta 30m g daily 01/26/2011 Appointment: Cherri Holguin WPtel: [address] [place] [address] FOLLOW UP 01/26/2011 Patient Education: Patient Medication Summary Completed 01/26/2011 Visit Plan: Cont current meds and PT Exa m for Power chair completed Adderall rx refilled 06/15/2010 Appointment: Cherri Holguin WPtel: [address] [place] [address] ESTABLISHED PATIENT 06/15/2010 Patient Education: Patient Medication Summary Completed 06/15/2010 Visit Plan: To rehab today for PT/OT--I will follow on rehab unit 05/04/2010 Appointment: Cherri Holguin WPtel: [address] [place] [address] FOLLOW UP 05/04/2010 Patient Education: Patient Medication Summary Completed 05/04/2010 Visit Plan: Cont PT Cont Forteo Long dis cussion about living home--will discuss with PT when finishes this session 03/03/2010 Appointment: Cherri Holguin WPtel: [address] [place] [address] FOLLOW UP 03/03/2010 Patient Education: Patient Medication Summary Completed 03/03/2010 Visit Plan: EGD by Dr. Dang Pt agrees to restart Forteo 10/20/2009 Appointment: Cehrri Holguin WPtel: [address] [place] [address] FOLLOW UP 10/20/2009 Patient Education: Patient Medication Summary Completed 10/20/2009 Referral: Antonio Gandhi WPtel: [address] [id number] [place] Referral Initiated Instructions Comment . Low-dose [...] to several in past and even [facility] . Continue current meds Check CBC, CMP, TSH, Free T4, B12 . Adderall refilled Continue current meds . 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 Will use eye bj p.(Cipro as she claims allergy (nausea). Pt. is accompanied by "grounds keepers" from [employer]. Written instructions given for pt. to be [...]
--- OUTSIDE RECORDS SUMMARY | 2020-03-05 20:50 | XMS REPORT | CCD ---
Author Author Rosario Holguin D.O. Organization CHERRI HOLGUIN DO [facility] Address [address] [place] [address] Phone Care Team Providers Care Multi Line Claims Adjuster Name Role Phone Cherri Holguin D.O., PP Unavailable CCM Unavailable Summary Purpose Interface Exchange Insurance Providers Payer name Policy type / Coverage type Covered libertarian ID Effective Begin Date Effective End Date WPS MEDICARE [place] B [place] Medicare Part B [id number] Unknown AARP Medicare Part B [id number] Unknown Family History Family History data not found Social History Social History Element Codes Description Effective Dates Tobacco history SNOMED CT: 2498054 Former smoker 04/15/2015 Allergies, Adverse Reactions, Alerts [...] Instructions Tessalon Perles 100 mg capsule RxNorm: 078999 1 Capsule(s) Oral Q8H as needed 12/03/2019 No Stop Date Active glycerin (adult) rectal suppository RxNorm: 1 Cardenas ppository Rectal and Tuesday12/03/2019 No Stop Date Active cyanocobalamin (vit B-12) 1,000 mcg/mL injection solution Rx Norm: 887254 1 Milliliter(s) Intramuscular every 2 weeks 06/26/2019 09/24/2019 Inacti ve cyanocobalamin (vit B-12) 1,000 mcg/mL injection solution Rx Norm: 806046 1 Milliliter(s) Intramuscular every 2 weeks 06/26/2019 06/25/2019 Inacti ve bisacodyl 10 mg rectal suppository RxNorm: 130285 1 Sup pository Rectal QD as needed 05/10/2019 No Stop Date Active glycerin (adult) rectal suppository RxNorm: 9010776 1 Suppositor y RTL BIW 07/25/2018 12/02/2019 Inactive rabeprazole 20 mg tablet,delayed release RxNorm: 377426 1 Table t(s) PO QD 03/01/2018 05/29/2018 Inactive replaces lansoprazol e Adderall XR 10 mg capsule,extended release RxNorm: 543536 1 Cap teresa(s) PO QAM 10/20/2017 12/19/2017 Inactive Tessalon Perles 100 mg capsule RxNorm: 385834 1 Capsule (s) PO TID as needed for cough 09/16/2017 09/30/2019 Inactive Cymbalta 30 mg capsule,delayed release RxNorm: 006547 1 Capsule (s) PO QD 08/17/2017 12/02/2019 Inactive nystatin 100,000 unit/gram topical powder RxNorm: 032823 1 Appl ication TOP BID 08/16/2017 02/14/2018 Inactive Adderall XR 10 mg capsule,extended release RxNorm: 854545 1 Cap teresa(s) PO QAM 08/11/2017 09/09/2017 Inactive Adderall XR 10 mg capsule,extended release RxNorm: 226918 1 Cap teresa(s) PO QAM 08/04/2017 08/03/2017 Inactive Adderall XR 10 mg capsule,extended release RxNorm: 158392 1 Cap teresa(s) PO QAM 08/04/2017 08/10/2017 Inactive Bactrim DS 800 mg-160 mg tablet RxNorm: 211188 1 Tablet(s) PO BID 1 08/28/2016 07/07/2017 Inactive clindamycin 300 mg capsule RxNorm: 298915 2 Capsule(s) PO TID doses for today and tomorrow 11/30/2016 05/01/2017 Inactive ketoconazole 2 % shampoo RxNorm: 650186 1 Application TOP twice a week 09/14/2016 05/01/2017 Inactive hydrocodone 5 mg-acetaminophen 325 mg tablet RxNorm: 988855 1 Tablet(s) PO Q6H as needed for pain 07/12/2016 05/01/2017 Inactive Cipro 250 mg tablet RxNorm: 930958 1 Tablet(s) PO BID 09/29/201509/09 Inactive cefuroxime axetil 250 mg tablet RxNorm: 911892 1 Tablet(s) PO BID 0 09/10/2015 09/16/2015 Inactive Micro-K 8 mEq capsule,extended release RxNorm: 894182 1 Capsule (s) PO QD 08/20/2015 08/16/2017 Inactive Micro-K 8 mEq capsule,extended release RxNorm: 583558 1 Capsule (s) PO QD 08/20/2015 08/19/2015 Inactive Adderall XR 20 mg capsule,extended release RxNorm: 189846 1 Cap teresa(s) PO QAM 04/30/2015 02/11/2016 Inactive hydroxyzine HCl 25 mg tablet RxNorm: 273461 1 Tablet(s) PO Q6H as needed for itching/hives 04/02/2015 09/12/2016 Inactive Miralax 17 gram oral powder packet RxNorm: 139487 17 Gr am(s) PO BID for constipation 02/26/2015 02/11/2016 Inactive Adderall XR 20 mg capsule,extended release RxNorm: 117816 1 Cap teresa(s) PO QAM 07/09/2014 08/07/2014 Inactive Adderall 20 mg tablet RxNorm: 178172 2 Tablet(s) PO QD 02/04/201408/2013 Inactive [AttnRPh: Saving apply/adjudicate RxGRP: SG20 RxBIN:[id number] RxPCN: ID#:[id number]] triamcinolone acetonide 0.1 % topical cream RxNorm: 3095705 1 Application TOP BID to affected area as needed 12/12/2013 01/13/2015 Inactive [ AttnRPh: Saving apply/adjudicate RxGRP:SG20 RxBIN:[id number] RxPCN: ID#:[id number]] Adderall 20 mg tablet RxNorm: 130331 2 Tablet(s) PO QD 12/04/2013 Inactive [AttnRPh: Saving apply/adjudicate RxGRP: SG20 RxBIN:[id number] RxPCN: ID#:[id number]] Adderall 20 mg tablet RxNorm: 406591 2 Tablet(s) PO QD 12/03/2013 Inactive [AttnRPh: Saving apply/adjudicate RxGRP: SG20 RxBIN:[id number] RxPCN: ID#:[id number]] Adderall 20 mg tablet RxNorm: 162574 2 Tablet(s) PO QD 11/02/2013 Inactive Adderall 20 mg tablet RxNorm: 862797 2 Tablet(s) PO QD 10/01/2013 Inactive meloxicam 7.5 mg tablet RxNorm: 578050 1 Tablet(s) PO QD 09/24/2013 0 08/19/2014 Inactive lisinopril 20 mg tablet RxNorm: 248366 1 Tablet(s) PO QD 09/24/2013 0 08/19/2014 Inactive Protonix 40 mg tablet,delayed release RxNorm: 356704 1 Tablet(s ) PO QD 09/24/2013 08/19/2014 Inactive Adderall 20 mg tablet RxNorm: 301942 2 Tablet(s) PO QD 08/29/2013 Inactive Adderall 20 mg tablet RxNorm: 058005 2 Tablet(s) PO QD 08/02/2013 Inactive hydroxyzine HCl 25 mg tablet RxNorm: 763656 1 Tablet(s) PO Q6H as needed 06/29/2013 08/19/2014 Inactive Adderall 20 mg tablet RxNorm: 985954 2 Tablet(s) PO QD 05/22/2013 Inactive Protonix 40 mg tablet,delayed release RxNorm: 717558 1 Tablet(s ) PO QD 05/15/2013 09/11/2013 Inactive meloxicam 7.5 mg tablet RxNorm: 114831 1 Tablet(s) PO QD 05/15/2013 0 09/11/2013 Inactive lisinopril 20 mg tablet RxNorm: 430660 1 Tablet(s) PO QD 05/15/2013 0 09/11/2013 Inactive Adderall 20 mg tablet RxNorm: 818891 2 Tablet(s) PO QD 04/02/2013 No Stop Date Active Adderall 20 mg tablet RxNorm: 660825 2 Tablet(s) PO QD 02/27/2013 No Stop Date Active Adderall 20 mg tablet RxNorm: 984688 2 Tablet(s) PO QD 01/22/2013 No Stop Date Active Adderall 20 mg tablet RxNorm: 843801 2 Tablet(s) PO QD 12/28/2012 No Stop Date Active Adderall 20 mg tablet RxNorm: 391526 2 Tablet(s) PO QD 12/01/2012 No Stop Date Active Adderall 20 mg tablet RxNorm: 931038 2 Tablet(s) PO QD 11/01/2012 No Stop Date Active K-Dur 20 mEq tablet,extended release RxNorm: 821542 1 Tablet(s) PO QD 10/19/2012 11/26/2018 Inactive meloxicam 7.5 mg tablet RxNorm: 091621 1 Tablet(s) PO QD 10/19/2012 0 04/16/2013 Inactive Protonix 40 mg tablet,delayed release RxNorm: 672328 1 Tablet(s ) PO QD 10/19/2012 04/16/2013 Inactive lisinopril 20 mg tablet RxNorm: 813635 1 Tablet(s) PO QD 10/19/2012 0 04/16/2013 Inactive Cipro 500 mg tablet RxNorm: 477518 1 Tablet(s) PO BID 07/05/201211/2011 Inactive Adderall XR 20 mg capsule,extended release RxNorm: 897381 2 Cap teresa(s) PO QAM 06/12/2012 07/26/2012 Inactive Adderall XR 20 mg capsule,extended release RxNorm: 499423 2 Cap teresa(s) PO QAM 05/16/2012 06/11/2012 Inactive Adderall XR 20 mg capsule,extended release RxNorm: 301258 2 Cap teresa(s) PO QAM 04/21/2012 05/15/2012 Inactive Adderall XR 20 mg capsule,extended release RxNorm: 180016 2 Cap teresa(s) PO QAM 02/16/2012 03/16/2012 Inactive Enablex 15 mg 24 hr Tab RxNorm: 799641 1 Tablet(s) PO QPM repla mady Vesicare 02/07/2012 05/28/2012 Inactive Enablex 15 mg 24 hr Tab RxNorm: 522233 1 Tablet(s) PO QPM repla mady Vesicare 02/07/2012 08/04/2012 Inactive Protonix 40 mg Tab RxNorm: 550823 1 Tablet(s) PO QD 02/07/20122011 Inactive Protonix 40 mg Tab RxNorm: 426005 1 Tablet(s) PO QD 02/02/20122011 Inactive Enablex 15 mg 24 hr Tab RxNorm: 966633 1 Tablet(s) PO QPM repla mady Vesicare 02/02/2012 02/06/2012 Inactive Adderall XR 20 mg 24 hr Cap RxNorm: 420538 2 Capsule(s) PO QAM 01/0602/15/2012 Inactive Adderall XR 20 mg 24 hr Cap RxNorm: 006627 2 Capsule(s) PO QAM 12/0601/15/2012 Inactive Adderall XR 20 mg 24 hr Cap RxNorm: 352727 2 Capsule(s) PO QAM 11/0612/16/2011 Inactive Adderall XR 20 mg 24 hr Cap RxNorm: 185021 2 Capsule(s) PO QAM 10/0611/17/2011 Inactive Adderall XR 20 mg 24 hr Cap RxNorm: 001544 2 Capsule(s) PO QAM 09/0910/24/2011 Inactive Prevacid 30 mg Cap RxNorm: 647279 1 Capsule(s) PO QD 07/30/201109/27 Inactive Adderall XR 20 mg 24 hr Cap RxNorm: 671947 2 Capsule(s) PO QAM 07/0908/28/2011 Inactive Adderall XR 20 mg 24 hr Cap RxNorm: 051542 2 Capsule(s) PO QAM 06/0807/21/2011 Inactive ciprofloxacin 0.3 % Eye Drops RxNorm: 516298 2 Drop(s) OPH Q2H 05/0905/31/2011 Inactive Adderall XR 20 mg 24 hr Cap RxNorm: 063972 2 Capsule(s) PO QAM 05/08 No Stop Date Active Wellbutrin XL 150 mg 24 hr Tab RxNorm: 751795 1 Tablet(s) PO QAM 04/14/2011 Inactive Vesicare 10 mg Tab RxNorm: 594591 1 Tablet(s) PO QD 12/24/20102011 Inactive Vesicare 10 mg Tab RxNorm: 787816 1 Tablet(s) PO QD 12/21/20102018 Inactive Adderall XR 30 mg 24 hr Cap RxNorm: 774917 1 Capsule(s) PO QD 11/1712/16/2010 Inactive Vesicare 10 mg Tab RxNorm: 889443 1 Tablet(s) PO QD 09/21/20102010 Inactive Adderall XR 30 mg 24 hr Cap RxNorm: 411156 1 Capsule(s) PO 09/17/19 11 10/16/2010 Inactive Adderall XR 30 mg 24 hr Cap RxNorm: 091491 1 Capsule(s) PO QAM 07/0911/26/2018 Inactive Adderall XR 30 mg 24 hr Cap RxNorm: 540334 1 Capsule(s) PO QAM 07/0908/03/2010 Inactive Adderall XR 20 mg 24 hr Cap RxNorm: 075272 2 Capsule(s) PO QD 01/2602/02/2010 Inactive Adderall XR 20 mg 24 hr Cap RxNorm: 076918 1 Capsule(s) PO QD 01/2605/03/2010 Inactive Forteo 20 mcg/dose (600 mcg/2.4 mL) Sub-Q Pen Injector RxNorm: 1 611590 SQ 12/30/2009 01/25/2011 Inactive hyoscyamine 0.125 mg sublingual tablet RxNorm: 1354568 1 Tablet(s) SL Q4H as needed for excessive secretions No Start Date Active Senokot-S 8.6 mg-50 mg tablet RxNorm: 8775639 2 Tablet(s) PO BID No Start Date Active rabeprazole 20 mg tablet,delayed release RxNorm: 855207 1 Table t(s) PO QD No Start Date Active Micro-K 10 10 mEq capsule,extended release RxNorm: 635605 1 Cap teresa(s) PO QD No Start Date Active docusate sodium 100 mg tablet RxNorm: 7533224 1 Tablet(s) PO Q8H as needed No Start Date Active ondansetron HCl 4 mg tablet RxNorm: 514358 1 Tablet(s) PO Q4H a s needed No Start Date Active Vitamin D3 5,000 unit tablet RxNorm: 456070 1 Tablet(s) PO QD No Star t Date Active bisacodyl 5 mg tablet RxNorm: 498950 1 Tablet(s) PO BID as needed N o Start Date Active aspirin 81 mg tablet RxNorm: 329365 1 Tablet(s) PO QD No Start Date Active Multivitamin And Mineral oral RxNorm: oral No Start Date Active Benadryl 1 % topical cream RxNorm: 7036818 TOP as needed for hiv es No Start Date Active K-Dur 20 mEq tablet,extended release RxNorm: 438067 1 Tablet(s) PO QD No Start Date 08/19/2014 Inactive Colace 100 mg capsule RxNorm: 2718183 1 Capsule(s) PO BID No Start Date 01/19/2017 Inactive ketoconazole 2 % shampoo RxNorm: 198512 1 Application TOP twice a week No Start Date 09/13/2016 Inactive ibuprofen 600 mg tablet RxNorm: 338249 1 Tablet(s) PO Q6H as ne eded No Start Date 06/21/2018 Inactive Zaditor 0.025 % Eye Drops RxNorm: 013213 1 Drop(s) OPH BID No Start Date 05/28/2012 Inactive senna 8.6 mg tablet RxNorm: 401100 2 Tablet(s) PO BID No Start Date 0 02/11/2016 Inactive senna 8.6 mg tablet RxNorm: 492353 1 Tablet(s) PO BID No Start Date 0 02/11/2016 Inactive Amoxil 500 mg capsule RxNorm: 495125 1 Capsule(s) PO BID No Start D ate 05/01/2017 Inactive lisinopril 20 mg tablet RxNorm: 705363 1 Tablet(s) PO QD No Start D ate 10/18/2012 Inactive Prevacid 30 mg Capsule, delayed release RxNorm: 292031 1 Capsul e(s) PO QD No Start Date 02/01/2012 Inactive Senokot-S 8.6 mg-50 mg Tab RxNorm: 6049421 2 Tablet(s) PO QD PRN No Start Date 03/02/2010 Inactive Cymbalta 30 mg capsule,delayed release RxNorm: 453560 1 Capsule (s) PO QD No Start Date 08/16/2017 Inactive ketoconazole 2 % topical cream RxNorm: 533684 1 Applica tion TOP BID to scaly eyebrows No Start Date 05/01/2017 Inactive lorazepam 0.5 mg tablet RxNorm: 877829 1 Tablet(s) PO Q4H as ne eded No Start Date 06/21/2018 Inactive Vitamin C 500 mg tablet RxNorm: 029115 1 Tablet(s) PO QD No Start D ate 01/21/2013 Inactive albuterol sulfate 2.5 mg/3 mL (0.083 %) Neb Solution RxNorm: 017847 Milliliter(s) INH 1 vial in nebulizer every 4 hours as needed No Start Date 01/21/2013 Inactive Adderall XR 20 mg 24 hr Cap RxNorm: 237443 1 Capsule(s) PO QAM No S tart Date 01/25/2011 Inactive Xanax 0.25 mg Tab RxNorm: 783093 1/2 Tablet(s) PO BID PRN No Start Date 03/02/2010 Inactive Tylenol Extra Strength 500 mg Tab RxNorm: 003860 2 Tablet(s) PO PRN No Start Date 08/24/2011 Inactive Adderall 20 mg tablet RxNorm: 715015 2 Tablet(s) PO QD No Start Date 10/31/2012 Inactive bisacodyl 5 mg tablet,delayed release RxNorm: 300932 1 Tablet(s) PO Q12H as needed No Start Date 02/04/2019 Inactive Tessalon Perles 100 mg capsule RxNorm: 578549 1 Capsule (s) PO TID as needed for cough No Start Date 09/15/2017 Inactive Vitamin D3 1,000 unit tablet RxNorm: 080958 3 Tablet(s) PO QD No St art Date 02/22/2017 Inactive meloxicam 7.5 mg tablet RxNorm: 650365 1 Tablet(s) PO QD No Start D ate 10/18/2012 Inactive Bactroban 2 % topical ointment RxNorm: 830513 1 Application TOP QD No Start Date 12/11/2017 Inactive Toviaz 8 mg 24 hr Tab RxNorm: 431827 1 Tablet(s) PO QD No Start Date 09/21/2010 Inactive Prevacid 15 mg capsule,delayed release RxNorm: 063258 Capsule(s ) PO QD No Start Date 02/28/2018 Inactive K-Dur 20 mEq tablet,extended release RxNorm: 7259393 1 Tablet(s) PO QD No Start Date 10/18/2012 Inactive Adderall XR 20 mg 24 hr Cap RxNorm: 616769 2 Capsule(s) PO QAM No S tart Date 05/24/2011 Inactive Calcium with Vitamin D 600 mg-400 unit Tab RxNorm: 025119 1 Tab let(s) PO QD No Start Date 08/24/2011 Inactive Miralax 17 gram oral powder packet RxNorm: 078103 17 Gram(s) PO BID as needed No Start Date 11/26/2018 Inactive Zestril 10 mg Tab RxNorm: 971297 1 Tablet(s) PO QD No Start Date 10/06 Inactive baclofen 10 mg tablet RxNorm: 035884 1 Tablet(s) PO QHS No Start Da te 09/11/2015 Inactive Tums 500 Oral RxNorm: Oral No Start Date 01/13/2015 Inactive Senokot-S 8.6 mg-50 mg tablet RxNorm: 9499831 1 Tablet(s) PO BID No Start Date 11/26/2018 Inactive Prozac 10 mg Tab RxNorm: 904457 1 Capsule(s) PO QD No Start Date 10/06 Inactive Elavil 10 mg tablet RxNorm: 012234 1 Tablet(s) PO QHS No Start Date 0 12/12/2018 Inactive Dulcolax Stool Softener (docusate) 100 mg capsule RxNorm: 12 22166 1 Capsule(s) PO Q8H as needed No Start Date 01/19/2017 Inactive Adderall XR 30 mg 24 hr Cap RxNorm: 288031 1 Capsule(s) PO QAM No S tart Date 04/14/2011 Inactive Milk of Magnesia-Cascara 15.25 % oral suspension RxNorm: oral No Start Date 11/26/2018 Inactive Tylenol 325 mg tablet RxNorm: 250305 2 Tablet(s) PO Q4H as needed N o Start Date 11/26/2018 Inactive Prilosec 20 mg capsule,delayed release RxNorm: 368067 1 Capsule (s) PO BID No Start Date 09/08/2014 Inactive Tylenol 8 Hour 650 mg tablet,extended release RxNorm: 926958 0 1 Tablet(s) PO Q4H as needed No Start Date 11/26/2018 Inactive Vitamin D3 2,000 unit tablet RxNorm: 673437 1 Tablet(s) PO QD No St art Date 02/22/2017 Inactive nystatin 100,000 unit/gram topical powder RxNorm: 922795 1 Appl ication TOP BID No Start Date 08/15/2017 Inactive morphine 20 mg/5 mL (4 mg/mL) oral solution RxNorm: 409296 .25 Milliliter(s) PO Q4H as needed No Start Date 09/24/2018 Inactive Forteo 20 mcg/dose (750 mcg/3 mL) Sub-Q Pen Injector RxNorm: 143 5115 SQ QD No Start Date 01/21/2010 Inactive ciprofloxacin 0.3 % Eye Drops RxNorm: 095243 2 Drop(s) OPH TID to affected eye No Start Date 08/23/2012 Inactive bisacodyl 5 mg tablet RxNorm: 008159 1 Tablet(s) PO BID No Start Da te 02/11/2016 Inactive Avosil 2 %-0.2 % topical ointment RxNorm: 1 Appl ication TOP Q8H as needed to burn sites No Start Date 11/26/2018 Inactive Milk of Alexa 800 mg/5 mL oral suspension RxNorm: 480791 Milliliter(s) PO as needed No Start Date 06/20/2018 Inactive Atarax 25 mg tablet RxNorm: 708984 1 Tablet(s) PO Q4H prn itchi ng/hives No Start Date 08/24/2011 Inactive Adderall XR 30 mg 24 hr Cap RxNorm: 966450 1 Capsule(s) PO QAM No S tart Date 07/26/2010 Inactive Prevacid 30 mg Cap RxNorm: 866119 1 Capsule(s) PO QD No Start Date Inactive Vitamin C 500 mg tablet RxNorm: 621804 1 Tablet(s) PO BID No Start Date 07/11/2016 Inactive Vistaril 25 mg capsule RxNorm: 443102 1 Capsule(s) PO Q4H PRN No St art Date 03/02/2010 Inactive tramadol 50 mg tablet RxNorm: 988666 1 Tablet(s) PO TID as need ed for pain No Start Date 01/21/2013 Inactive Multivitamin & Mineral Formula tablet RxNorm: 1 Tablet(s) PO Q D No Start Date 06/22/2018 Inactive hydrocodone 5 mg-acetaminophen 325 mg tablet RxNorm: 888503 1 Tablet(s) PO Q4H as needed for pain No Start Date 06/24/2019 Inactive Multivitamin & Mineral Formula Oral RxNorm: Oral No Start Da te 03/02/2010 Inactive Miralax 17 gram oral powder packet RxNorm: 249956 17 Gr am(s) PO QPM for constipation No Start Date 02/25/2015 Inactive Percocet 5 mg-325 mg tablet RxNorm: 3210722 1-2 Tablet(s) PO Q4H as needed No Start Date 09/24/2018 Inactive triamcinolone acetonide 0.1 % topical cream RxNorm: 6421843 1 Application TOP TID to affected area as needed No Start Date 12/12/2013 Inactive rabeprazole 20 mg tablet,delayed release RxNorm: 131592 1 Table t(s) PO QD No Start Date 09/24/2018 Inactive Protonix 40 mg tablet,delayed release RxNorm: 322440 1 Tablet(s ) PO QD No Start Date 10/18/2012 Inactive Mobic 7.5 mg Tab RxNorm: 302334 1 Tablet(s) PO BID No Start Date 10/06 Inactive Sinemet CR 50 mg-200 mg Tab RxNorm: 872929 1 Tablet(s) PO QD No Sta rt Date 03/02/2010 Inactive Adderall XR 20 mg 24 hr Cap RxNorm: 566325 2 Capsule(s) PO QD No St art Date 02/02/2010 Inactive Medication Administered No Medication Administered data Immunizations No Immunization data Results Observation Observation Code Item Item Code Result Date S ervice Location COMPLETE BLOOD COUNT [id number] WBC 7.3 10e9/L 05/29/20 12 Unknown COMPLETE BLOOD COUNT [id number] RBC 5.20 10e12/L 2011 Unknown COMPLETE BLOOD COUNT [id number] HGB 15.3 g/dL 2 Unknown COMPLETE BLOOD COUNT [id number] HCT DET 45.9 % 2 Unknown COMPLETE BLOOD COUNT [id number] MCV 88.3 fL 2 Unknown COMPLETE BLOOD COUNT [id number] MCH 29.4 pg 2 Unknown COMPLETE BLOOD COUNT [id number] MCHC 33.3 g/dL 2 Unknown COMPLETE BLOOD COUNT [id number] PLT 341 10e9/L 05/29/20 12 Unknown COMPLETE BLOOD COUNT [id number] MPV 10.1 fL 2 Unknown COMPLETE BLOOD COUNT [id number] ASHLEY % 63.2 % 2 Unknown COMPLETE BLOOD COUNT [id number] LY % 27.4 % 2 Unknown COMPLETE BLOOD COUNT [id number] MON % 7.6 % 2 Unknown COMPLETE BLOOD COUNT [id number] EOS % 1.5 % 2 Unknown COMPLETE BLOOD COUNT [id number] BASO % 0.3 % 2 Unknown COMPLETE BLOOD COUNT [id number] RDW 13.6 % 2 Unknown COMPLETE BLOOD COUNT [id number] ABS ASHLEY 4.61 10e9/L 012 Unknown COMPLETE BLOOD COUNT [id number] ABS LYMPH 2.00 10e9/L 012 Unknown COMPLETE BLOOD COUNT [id number] ABS MONO 0.55 10e9/L 012 Unknown COMPLETE BLOOD COUNT [id number] ABS EOS 0.11 10e9/L 012 Unknown COMPLETE BLOOD COUNT [id number] ABS BASO 0.02 10e9/L 012 Unknown COMPLETE BLOOD COUNT [id number] RDW-SD 43.5 fL 2 Unknown THYROID STIMULATING HORMONE 38688 TSH 1.487 uIU/ML 05/29/2012 Unknown GFR CALC [id number] GFR AA >60 ML/MIN 05/29/2012 Unknown GFR CALC [id number] GFR NON-AA >60 ML/MIN 05/29/2012 Unknown FREE T4 20596 FREE T4 1.20 NG/DL 05/29/2012 Unknown COMPREHENSIVE METABOLIC 79332 AST 17 U/L 2011 Unknown COMPREHENSIVE METABOLIC 07989 ALT 16 IU/L 2011 Unknown COMPREHENSIVE METABOLIC 48211 BUN 9 MG/DL 2011 Unknown COMPREHENSIVE METABOLIC 10196 ALBUMIN 4.1 GM/DL 2011 Unknown COMPREHENSIVE METABOLIC 64907 CHLORIDE 106 MMOL/L 05/29 Unknown COMPREHENSIVE METABOLIC 70187 BILI TOT 0.4 MG/DL 2011 Unknown COMPREHENSIVE METABOLIC 83313 ALK PHOS 87 U/L 2011 Unknown COMPREHENSIVE METABOLIC 00395 SODIUM 142 MMOL/L 05/29 Unknown COMPREHENSIVE METABOLIC 18129 CREATININE 0.79 MG/DL 05/09 Unknown COMPREHENSIVE METABOLIC 28341 CALCIUM 9.2 MG/DL 2011 Unknown COMPREHENSIVE METABOLIC 24255 POTASSIUM 3.6 MMOL/L 05/29 Unknown COMPREHENSIVE METABOLIC 10955 PROT TOT 6.5 GM/DL 2011 Unknown COMPREHENSIVE METABOLIC 32914 Glucose 78 MG/DL 2011 Unknown COMPREHENSIVE METABOLIC 24677 BICARB 27 MMOL/L 2011 Unknown COMPREHENSIVE METABOLIC 16689 ANION GAP 9 MEQ/L 2011 Unknown Procedures Procedure Codes Date PPPS, subseq visit CPT-4: G0439 08/03/2018 PPPS, subseq visit CPT-4: G0439 07/12/2016 CUR TOBACCO NON-USER CPT-4: G8457 04/15/2015 URINALYSIS NONAUTO W/O SCOPE CPT-4: 19364 07/05/2012 URINE CULTURE/ COLONY COUNT CPT-4: 08374 07/05/2012 PRESCRIP TRANSMIT VIA ERX SY CPT-4: G8553 07/05/2012 ROUTINE VENIPUNCTURE CPT-4: 37907 05/29/2012 ASSAY OF FREE THYROXINE CPT-4: 30675 05/29/2012 ASSAY THYROID STIM HORMONE CPT-4: 24500 05/29/2012 COMPREHEN METABOLIC PANEL CPT-4: 36210 05/29/2012 COMPLETE CBC W/AUTO DIFF WBC CPT-4: 93259 05/29/2012 PRESCRIP TRANSMIT VIA ERX SY CPT-4: G8553 05/29/2012 PRESCRIP TRANSMIT VIA ERX SY CPT-4: G8553 02/02/2012 PRESCRIP TRANSMIT VIA ERX SY CPT-4: G8553 05/27/2011 PRESCRIP TRANSMIT VIA ERX SY CPT-4: G8553 02/22/2011 MD SERVICE REQUIRED FOR PMD CPT-4: G0372 06/15/2010 ROUTINE VENIPUNCTURE CPT-4: 05029 10/20/2009 Vital Signs Date Vital 12/03/2019 Blood [...] 1: 114/66 Code: 8480-6 BMI: 25.8 Code: 53192-8 Heart Rate 1: 72 bpm Height: 5'2" [...] 1: 122/80 Code: 8480-6 BMI: 24.9 Code: 53946-4 Heart Rate 1: 100 bpm Height: 5'2" Respiratory Rate: 20 bpm Temperature: 37 .1 (C) / 98.8 (F) Weight: 136 lbs 11/03/2011 Blood Pressure 1: 104/60 Code: 8480-6 BMI: 24.1 Code: 15935-1 Heart Rate 1: 88 bpm Height: 5'2" Respiratory Rate: 20 bpm Temperature: 36 .6 (C) / 97.8 (F) Weight: 132 lbs 08/25/2011 Blood Pressure 1: 128/86 Code: 8480-6 BMI: 24.9 Code: 24605-8 Heart Rate 1: 76 bpm Height: 5'2" Respiratory Rate: 20 bpm Temperature: 36 .2 (C) / 97.2 (F) Weight: 136 lbs 05/27/2011 Blood Pressure 1: 130/90 Code: 8480-6 BMI: 25.1 Code: 62794-2 Heart Rate 1: 68 bpm Height: 5'2" [...] 1: 114/70 Code: 8480-6 BMI: 22.9 Code: 82191-1 Heart Rate 1: 92 bpm Height: 5'2" [...] Diagnosis: Sacral decubitus ulcer[ICD10: L89.159] Cherri OLSON Ruth [facility] – [facility] CPT-4: 25182 12/03/2019 ([id number]) OFFICE/OUTPATIENT VISIT EST 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] Diagnosis: Muscle weakness (generalized)[ICD10: M62.81] Cherri MACHUCA [facility] [email or web address] CPT-4: 58340 10/01/2019 ([id number]) OFFICE/OUTPATIENT VISIT EST Diagnosis: Personal history of malignant neoplasm of brain[ICD10: Z85.841] Diagnosis: Muscle weakness (generalized)[ICD10: M62.81] Diagnosis: Hemiplegia, unspecified affecting left dominant side[ICD10: G81.92] Diagnosis: Contracture, 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] Cherri OLSON [facility] CPT-4: 11937 06/25/2019 ([id number]) OFFICE/OUTPATIENT VISIT EST Diagnosis: Attention and concentration deficit[ICD10: R41.840] Diagnosis: Abnormal weight loss[ICD10: R63.4] Cherri DANIEL [email or web address] CPT-4: 41790 02/05/2019 ([id number]) OFFICE/OUTPATIENT VISIT EST Diagnosis: Attention and concentration deficit[ICD10: R41.840] Cherri MACHUCA [facility] [email or web address] CPT-4: 45986 12/13/2018 ([id number]) OFFICE/OUTPATIENT VISIT EST Diagnosis: Laceration without foreign body of left upper arm, sequela[ICD10: S41.112S] Diagnosis: Other fatigue[ICD10: R53.83] Cherri HOLGUIN DO [facility] CPT-4: 98114 11/27/2018 ([id number]) OFFICE/OUTPATIENT VISIT EST Diagnosis: Gastro-esophageal reflux disease without esophagitis[ICD10: K21.9] Diagnosis: Contracture, 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] Diagnosis: Slow transit constipation[ICD10: K59.01] Cherri HOLGUIN DO [facility] CPT-4: 19125 09/25/2018 ([id number]) OFFICE/OUTPATIENT VISIT EST Diagnosis: Gastro-esophageal reflux disease without esophagitis[ICD10: K21.9] Diagnosis: Muscle weakness (generalized)[ICD10: M62.81] Maxine HOLGUIN [employer] [facility] CPT-4: 92129 06/22/2018 ([id number]) OFFICE/OUTPATIENT VISIT EST Diagnosis: Gastro-esophageal reflux disease without esophagitis[ICD10: K21.9] Cherri HOLGUIN DO [facility] CPT-4: 47338 04/06/2018 ([id number]) OFFICE/OUTPATIENT VISIT EST Diagnosis: Gastro-esophageal reflux disease without esophagitis[ICD10: K21.9] Maxine HOLGUIN DO [facility] CPT-4: 09670 03/06/2018 ([id number]) OFFICE/OUTPATIENT VISIT EST Diagnosis: 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 CPT-4: 71754 12/12/2017 ([id number]) OFFICE/OUTPATIENT VISIT EST Diagnosis: Nondisplaced fracture of medial malleolus of left tibia, subsequent encounter for closed fracture with delayed healing[ICD10: S82.55XG] Cherri HOLGUIN DO [facility] CPT-4: 57893 10/10/2017 OFFICE/OUTPATIENT VISIT EST Diagnosis: Acute upper respiratory infection, unspecified[ICD10: J06.9] Maxine HOLGUIN [facility] CPT-4: 87199 09/19/2017 ([id number]) OFFICE/OUTPATIENT VISIT EST Diagnosis: Muscle weakness (generalized)[ICD10: M62.81] Diagnosis: Other specified disorders of the skin and subcutaneous tissue[ICD10: L98.8] Cherri HOLGUIN [facility] CPT-4: 55885 08/04/2017 ([id number]) OFFICE/OUTPATIENT VISIT EST Diagnosis: Unspecified open wound of abdominal wall, left upper quadrant with penetration into peritoneal cavity, sequela[ICD10: S31.601S] Diagnosis: Muscle weakness (generalized)[ICD10: M62.81] Diagnosis: Personal history of malignant neoplasm of brain[ICD10: Z85.841] Cherri HOLGUIN Kamicat [facility] CPT-4: 37645 07/12/2017 ([id number]) OFFICE/OUTPATIENT VISIT EST Diagnosis: Non-pressure chronic ulcer of skin of other sites with unspecified severity[ICD10: L98.499] Diagnosis: Tinea cruris[ICD10: B35.6] Cherri RUSHING [facility] CPT-4: 96859 05/30/2017 ([id number]) OFFICE/OUTPATIENT VISIT EST Diagnosis: Cellulitis of abdominal wall[ICD10: L03.311] Diagnosis: Cellulitis of chest wall[ICD10: L03.313] Cherri HOLGUIN [facility] CPT-4: 99117 05/02/2017 ([id number]) OFFICE/OUTPATIENT VISIT EST Diagnosis: Cellulitis of chest wall[ICD10: L03.313] Diagnosis: Muscle weakness (generalized)[ICD10: M62.81] Cherri HOLGUIN DO [facility] CPT-4: 30593 02/28/2017 ([id number]) OFFICE/OUTPATIENT VISIT EST Diagnosis: Cellulitis of abdominal wall[ICD10: L03.311] Cherri HOLGUIN DO [facility] CPT-4: 75061 12/06/2016 OFFICE/OUTPATIENT VISIT EST Diagnosis: Cutaneous abscess of abdominal wall[ICD10: L02.211] Diagnosis: Cellulitis of abdominal wall[ICD10: L03.311] Cherri HOLGUIN DO [facility] CPT-4: 96452 12/02/2016 ([id number]) OFFICE/OUTPATIENT VISIT EST Diagnosis: Cellulitis of abdominal wall[ICD10: L03.311] Diagnosis: Cutaneous abscess of abdominal wall[ICD10: L02.211] Cherri HOLGUIN DO [facility] CPT-4: 14089 12/01/2016 ([id number]) OFFICE/OUTPATIENT VISIT EST Diagnosis: Cutaneous abscess of abdominal wall[ICD10: L02.211] Diagnosis: Cellulitis of abdominal wall[ICD10: L03.311] Cherri HOLGUIN DO [facility] CPT-4: 71819 11/30/2016 ([id number]) OFFICE/OUTPATIENT VISIT EST Diagnosis: Muscle weakness (generalized)[ICD10: M62.81] Diagnosis: Slow transit constipation[ICD10: K59.01] Diagnosis: 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, 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] Cherri HOLGUIN DO [facility] CPT-4: 20068 10/26/2016 ([id number]) OFFICE/OUTPATIENT VISIT EST Diagnosis: Other seborrheic dermatitis[ICD10: L21.8] Cherri HOLGUIN DO [facility] CPT-4: 47204 09/13/2016 ([id number]) OFFICE/OUTPATIENT VISIT EST Diagnosis: Contracture, 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] Diagnosis: Nicotine dependence, cigarettes, uncomplicated[ICD10: F17.210] Diagnosis: Hemiplegia, unspecified affecting unspecified side[ICD10: G81.90] Diagnosis: Muscle weakness (generalized)[ICD10: M62.81] Cherri HOLGUIN DO [facility] CPT-4: 25541 05/11/2016 ([id number]) OFFICE/OUTPATIENT VISIT EST Diagnosis: Muscle weakness (generalized)[ICD10: M62.81] Diagnosis: Abnormal weight loss[ICD10: R63.4] Cherri HOLGUIN K[facility] CPT-4: 59913 12/23/2015 ([id number]) OFFICE/OUTPATIENT VISIT EST Diagnosis: Torticollis[ICD10: M43.6] Diagnosis: Cervicalgia[ICD10: M54.2] Diagnosis: Basal cell carcinoma of skin, unspecified[ICD10: C44.91] Cherri HOLGUIN DO [facility] CPT-4: 22594 09/23/2015 ([id number]) OFFICE/OUTPATIENT VISIT EST Diagnosis: Constipation[ICD9: 564.00] Diagnosis: MUSCLE WEAKNESS-GENERAL[ICD9: 728.87] Cherri HOLGUIN [facility] CPT-4: 14153 04/15/2015 ([id number]) OFFICE/OUTPATIENT VISIT EST Diagnosis: MALAISE AND FATIGUE[ICD9: 780.79] Diagnosis: 3RD DEGREE BURN[ICD9: 949.3] Cherri HOLGUIN DO [facility] CPT-4: 43703 01/14/2015 ([id number]) OFFICE/OUTPATIENT VISIT EST Diagnosis: Constipation[ICD9: 564.00] Diagnosis: MUSCLE WEAKNESS-GENERAL[ICD9: 728.87] Diagnosis: 3RD DEGREE BURN[ICD9: 949.3] Cherri HOLGUIN DO [facility] CPT-4: 43799 10/29/2014 ([id number]) OFFICE/OUTPATIENT VISIT EST Diagnosis: Weakness generalized[ICD9: 780.79] Diagnosis: 3RD DEGREE BURN[ICD9: 949.3] Cherri HOLGUIN [facility] CPT-4: 72060 08/20/2014 ([id number]) OFFICE/OUTPATIENT VISIT EST Diagnosis: 3RD DEGREE BURN[ICD9: 949.3] Diagnosis: DYSPHAGIA NEC[ICD9: 787.29] Cherri [facility]HAELS [facility] CPT-4: 97709 06/04/2014 ([id number]) OFFICE/OUTPATIENT VISIT EST Diagnosis: 3RD DEGREE BURN[ICD9: 949.3] Diagnosis: Complication of skin graft[ICD9: 996.52] Diagnosis: TOBACCO USE DISORDER[ICD9: 305.1] Cherri HOLGUIN [facility] CPT-4: 18203 05/06/2014 ([id number]) OFFICE/OUTPATIENT VISIT EST Diagnosis: CELLULITIS[ICD9: 682.9] Cherri BRUNSON 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 CPT-4: 23977 04/25/2013 ([id number]) OFFICE/OUTPATIENT VISIT EST Diagnosis: MUSCLE WEAKNESS-GENERAL[ICD9: 728.87] Diagnosis: ABNORMALITY OF GAIT[ICD9: 781.2] Diagnosis: MALAISE AND FATIGUE[ICD9: 780.79] Cherri HOLGUIN [facility] CPT-4: 97964 01/22/2013 OFFICE/OUTPATIENT VISIT EST Diagnosis: MALAISE AND FATIGUE[ICD9: 780.79] Diagnosis: MUSCLE WEAKNESS-GENERAL[ICD9: 728.87] Diagnosis: HEMIPLEGIANOS SIDE NOS[ICD9: 342.90] Diagnosis: ABNORMALITY OF GAIT[ICD9: 781.2] Cherri HOLGUIN [facility] CPT-4: 34210 10/18/2012 OFFICE/OUTPATIENT VISIT EST Diagnosis: ABNORMALITY OF GAIT[ICD9: 781.2] Diagnosis: MALAISE AND FATIGUE[ICD9: 780.79] Diagnosis: MUSCLE WEAKNESS-GENERAL[ICD9: 728.87] Cherri HOLGUIN [facility] CPT-4: 50666 09/25/2012 OFFICE/OUTPATIENT VISIT EST Diagnosis: CERVICALGIA[ICD9: 723.1] Diagnosis: ABNORMALITY OF GAIT[ICD9: 781.2] Diagnosis: MUSCLE WEAKNESS-GENERAL[ICD9: 728.87] Cherri HOLGUIN [facility] CPT-4: 87147 08/24/2012 ([id number]) OFFICE/OUTPATIENT VISIT EST Diagnosis: URINARY TRACT INFECTION[ICD9: 599.0] Diagnosis: Altered mental state[ICD9: 780.97] Diagnosis: MUSCLE WEAKNESS-GENERAL[ICD9: 728.87] Diagnosis: HEMIPLEGIANOS SIDE NOS[ICD9: 342.90] Diagnosis: Cervicalgia[ICD9: 723.1] Cherri CARIAS [facility] CPT-4: 43731 07/27/2012 OFFICE/OUTPATIENT VISIT EST Diagnosis: URINARY TRACT INFECTION[ICD9: 599.0] Diagnosis: Weakness generalized[ICD9: 780.79] Diagnosis: FEBRILE ILLNESS[ICD9: 780.60] Diagnosis: Vision disturbance[ICD9: 368.9] Tasneem Esquivel CHERRI HOLGUIN [facility] CPT-4: 70400 07/05/2012 OFFICE/OUTPATIENT VISIT EST Diagnosis: CONJUNCTIVITIS NOS[ICD9: 372.30] Diagnosis: MUSCLE WEAKNESS-GENERAL[ICD9: 728.87] Diagnosis: HEMIPLEGIANOS SIDE NOS[ICD9: 342.90] Diagnosis: ABNORMALITY OF GAIT[ICD9: 781.2] Cherri HOLGUIN [facility] CPT-4: 45396 05/29/2012 ([id number]) OFFICE/OUTPATIENT VISIT EST Diagnosis: MUSCLE WEAKNESS-GENERAL[ICD9: 728.87] Diagnosis: HEMIPLEGIANOS SIDE NOS[ICD9: 342.90] Diagnosis: ABNORMALITY OF GAIT[ICD9: 781.2] Diagnosis: DYSPEPSIA[ICD9: 536.8] Diagnosis: GERD[ICD9: 530.81] Cherri HOLGUIN [facility] CPT-4: 33710 02/02/2012 ([id number]) OFFICE/OUTPATIENT VISIT EST Diagnosis: MUSCLE WEAKNESS-GENERAL[ICD9: 728.87] Diagnosis: ABNORMALITY OF GAIT[ICD9: 781.2] Diagnosis: GERD[ICD9: 530.81] Cherri HOLGUIN [facility] CPT-4: 02512 11/03/2011 OFFICE/OUTPATIENT VISIT EST Diagnosis: MUSCLE WEAKNESS-GENERAL[ICD9: 728.87] Diagnosis: ABNORMALITY OF GAIT[ICD9: 781.2] Diagnosis: VOMITING ALONE[ICD9: 787.03] Diagnosis: GERD[ICD9: 530.81] Cherri HOLGUIN [facility] CPT-4: 74946 08/25/2011 OFFICE/OUTPATIENT VISIT EST Diagnosis: CONJUNCTIVITIS NOS[ICD9: 372.30] Cherri HOLGUIN [facility] CPT-4: 25345 05/27/2011 OFFICE/OUTPATIENT VISIT EST Diagnosis: MUSCLE WEAKNESS-GENERAL[ICD9: 728.87] Diagnosis: ABNORMALITY OF GAIT[ICD9: 781.2] Cherri HOLGUIN [facility] CPT-4: 58348 04/15/2011 OFFICE/OUTPATIENT VISIT EST Diagnosis: MALAISE AND FATIGUE[ICD9: 780.79] Diagnosis: MUSCLE WEAKNESS-GENERAL[ICD9: 728.87] Diagnosis: DEPRESSIVE DISORDER NEC[ICD9: 311] Diagnosis: ABNORMALITY OF GAIT[ICD9: 781.2] Cherri HOLGUIN [facility] CPT-4: 71218 03/22/2011 OFFICE/OUTPATIENT VISIT EST Cherri DORANTES K[facility] CPT- 4: 90370 02/22/2011 ([id number]) OFFICE/OUTPATIENT VISIT EST [facility]ri [facility] CPT-4: 23523 01/26/2011 ([id number]) OFFICE/OUTPATIENT VISIT, EST Cherri Thomas [facility] CPT-4: 27021 06/15/2010 ([id number]) OFFICE/OUTPATIENT VISIT, EST Cherri Thomas [facility] CPT-4: 75174 05/04/2010 ([id number]) OFFICE/OUTPATIENT VISIT, EST Cherri Thomas [facility] [email or web address] CPT-4: 99313 03/03/2010 ([id number]) OFFICE/OUTPATIENT VISIT, ISRAEL Thomas [facility] [email or web address] CPT-4: 32453 10/20/2009 Plan of Care Planned Activity Notes Codes Status Date Visit Diagnosis Plan: Sacral decubitus ulcer Discussio n: Wound Care seeing this week Follow Up: 2 months ICD-9 : 707.03 ICD-10 : L89.159 12/03/2019 Visit Diagnosis Plan: Constipation Discussion: Doxy.me video with [place] nurse done Changing to bisacodyl suppository ICD-9 : 564.00 ICD-10 : K59.00 12/03/2019 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 FOLLOW UP 06/25/2019 [...] : R63.4 02/05/2019 Appointment: Cherri Holguin WPtel: [address] [place], [place] [id number] [place] Confirmed with Nara Hankins 02/02 @ 11:07 am FOL LOW UP 02/05/2019 Appointment: Cherri Holguin WPtel: [address] [place] [id number] [place] NO SHOW 01/24/2019 Visit Diagnosis Plan: Attention and concentration defi cit Discussion: Trial of strattera 10mg daily for 1 week then 25mg daily Recheck 6 weeks Stimulants have caused weight loss in past as patient is also poor, picky eater so with the stimulants her appetite worsens even more ICD-9 : 799.51 ICD-10 : R41.840 12/13/2018 Appointment: Cherri Holguin WPtel: [address] [place], [place] [id number] [place] confirmed with Morena FOLLOW UP 12/13/2018 [...] : R53.83 11/27/2018 Appointment: Cherri Holguin WPtel: [address] [place] [id number] [place] confirmed with Karlee FOLLOW UP 11/27/2018 Visit Diagnosis Plan: Slow transit constipation Discus benito: Scheduled for colonoscopy on Tuesday ICD-9 : 564.01 ICD-10 : K59.01 09/25/2018 Visit Diagnosis Plan: Gastro-esophageal reflux disease without esophagitis Discussion: Stable on current meds ICD-9 : 530.81 ICD-10 : K21.9 09/25/2018 Visit Diagnosis Plan: Contracture, left hand Discussio n: Left arm in anh on wheelchair Follow Up: 2 months ICD-9 : 718.44 ICD-10 : M24.542 09/25/2018 Appointment: Cherri Holguin WPtel: [phone] [facility] [place] FOLLOW UP 09/25/2018 Visit Diagnosis Plan: Disorder of the skin and subcuta neous tissue, unspecified Discussion: referral to be sent to dr. hsieh for change in lesion on scalp. ICD-9 : 709.9 ICD-10 : L98.9 08/03/2018 Visit Diagnosis Plan: Encounter for [facility] adult medical examination with abnormal findings Discussion: [...] : Z12.39 08/03/2018 Appointment: [facility] Annual Well Visit 08/03/2018 Visit Diagnosis Plan: [...] K21.9 04/06/2018 Appointment: Cherri Holguin WPtel: [phone] [facility] FOLLOW UP 04/06/2018 Patient Education: Patient Medication Summary Completed 04/06/2018 Appointment: Cherri Holguin WPtel: [phone] [facility] [place] RESCHEDULED 03/07/2018 Visit Diagnosis Plan: Gastro-esophageal reflux disease without esophagitis Discussion: patient had aciphex and prevacid on med list. order written out on patient's list to only give the aciphex as prescribed and not both. follow up in one month to assess medication efficacy and constipation. ICD-9 : 530.81 ICD-10 : K21.9 03/06/2018 Appointment: Maxine Glasgow [address] [facility] FOLLOW UP 03/06/2018 Patient Education: Patient Medication [...] ICD-10 : F51.01 02/15/2018 Appointment: Cherri Holguintel: [address] [place] [id number] [place] FOLLOW UP 02/15/2018 Patient Education: Patient Medication Summary Completed 02/15/2018 Appointment: Cherri Holguin WPtel: [address] [place], [place] [phone] [place] [employer] transportation called, stating that the [...] : M62.81 12/12/2017 Appointment: Cherri Holguin WPtel: [address] [place], [place] [phone] [place] FOLLOW UP 12/12/2017 Patient Education: Patient Medication Summary Completed 12/12/2017 Visit Diagnosis Plan: Nondisplaced fract ure of medial malleolus of left tibia, subsequent encounter for closed fracture with delayed healing Discussion: Add miacalcin nasal spray for next 2mos Fwup with ortho Follow Up: 2 months ICD-9 : V54.16 ICD-10 : S82.55XG 10/10/2017 Appointment: Cherri Holguintel: [address] [place], [place] [phone] [place] FOLLOW UP 10/10/2017 Patient Education: Patient Medication Summary Completed 10/10/2017 Appointment: Cherri Holguin WPtel: [address] [place], [place] [phone] [place] RESCHEDULED 10/04/2017 Referral: Alvarado Mercado WPtel: [address] [address] [place] Referral Initiated 10/04/2017 Visit Diagnosis Plan: Acute upper respiratory infectio n, unspecified Discussion: continue with tessalon perles as needed. increase fluids. notify if worsening symptoms including shortness of breath or fever. call or rtc later this week if no improvement. instructed patient to perform deep breathing exercises at home. ICD-9 : 465.9 ICD-10 : J06.9 09/19/2017 Appointment: Maxine Glasgow [address] [place] [address] ACUTE ILLNESS 09/19/2017 Patient Education: Patient Medication Summary Completed 09/19/2017 Appointment: Cherri Holguin WPtel: [address] [place] [address] [place] CANCELED 08/16/2017 Visit Diagnosis Plan: Muscle [...] : L98.8 08/04/2017 Appointment: Cherri Holguin WPtel: [address] [place], [place] [email or web address] FOLLOW UP 08/04/2017 Patient Education: Patient Medication [...] : Z85.841 07/12/2017 Appointment: Cherri Holguin WPtel: [address] [place], [place] [phone] [place] [address] Follow Up 07/12/2017 Patient Education: Patient Medication [...] : L98.499 05/30/2017 Appointment: Cherri Holguin WPtel: [address] [place] [address] FOLLOW UP 05/30/2017 Patient Education: Patient Medication Summary Completed 05/30/2017 Visit Diagnosis Plan: Cellulitis of abdominal wall Dis cussion: Finish keflex Referral to wound care ICD-9 : 682.2 ICD-10 : L03.311 05/02/2017 Appointment: Cherri Holguin WPtel: [address] [place], [place] [phone] FOLLOW UP 05/02/2017 Patient Education: Patient Medication Summary Completed 05/02/2017 Referral: Remigio Valdes WPtel: [address] [place], [place] [phone] [place] Referral Initiated 04/05/2017 Visit Diagnosis Plan: Cellulitis of chest wall Discuss ion: Keflex x1 week Continue daily dressing changes ICD-9 : 682.2 ICD-10 : L03.313 02/28/2017 Visit Diagnosis Plan: Muscle weakness (generalized) Di scussion: Stable Follow Up: 2 months ICD-9 : 728.87 ICD-10 : M62.81 02/28/2017 Appointment: Cherri Holguin WPtel: [address] [place], [place] [phone] 02/24 confirmed~sl FOLLOW UP 02/28/2017 Patient Education: Patient Medication Summary Completed 02/28/2017 Visit Diagnosis Plan: Cellulitis of abdominal wall Dis cussion: Healing and improving so will finish all of clindamycin and monitor wounds for any worsening or recurrence ICD-9 : 682.2 ICD-10 : L03.311 12/06/2016 Appointment: Cherri Holguintel: [address] [place], [place] [phone] WORK IN 12/06/2016 Patient Education: Patient Medication Summary Completed 12/06/2016 Visit Diagnosis Plan: Cutaneous abscess of abdominal w all Discussion: Continue clindamycin and dressing changes To ER this weekend if worsens Fwup with me in 4 days for recheck ICD-9 : 682.2 ICD-10 : L02.211 12/02/2016 Appointment: Cherri Holguintel: [address] [place], [place] [phone] FOLLOW UP 12/02/2016 Patient Education: Patient Medication [...] : L03.311 12/01/2016 Appointment: Cherri Holguin WPtel: [facility] [place] WORK IN 12/01/2016 Patient Education: Patient Medication Summary Completed 12/01/2016 Visit Diagnosis Plan: Cutaneous abscess of abdominal w all Discussion: Copious amounts of pus expressed until bloody discharge Start clindamycin Recheck tomorrow Erythema outline marked Follow Up: 1 days ICD-9 : 682.2 ICD-10 : L02.211 11/30/2016 Appointment: Cherri Holguin WPtel: [address] [place] [id number] 11/29 confirmed`sl FOLLOW UP 11/30/2016 Patient Education: Patient Medication Summary Completed 11/30/2016 Appointment: Cherri Holguin WPtel: [address] [place], [place] [phone] 11/10 scalp looks ok will discuss at [...] : T85.09XS 10/26/2016 Appointment: Cherri Holguin WPtel: [address] [place] [address] ACUTE ILLNESS 10/26/2016 Patient Education: Patient Medication Summary Completed 10/26/2016 Patient Education: Patient Medication Summary Completed 10/21/2016 Care Plan: CT HEAD/BRAIN W/O [facility] : 54475-6 Pending 10/21/2016 Visit Diagnosis Plan: Other seborrheic dermatitis Disc ussion: Topical ketoconazole shampoo alternating with selsun blue Follow Up: 2 months ICD-9 : 706.3 ICD-10 : L21.8 09/13/2016 Appointment: Cherri Holguin WPtel: [address] [place], [place] [phone] 2/ confirm`sl FOLLOW UP 09/13/2016 Patient Education: Patient Medication Summary Completed 09/13/2016 Appointment: Cherri Holguin WPtel: [address] [place], [place] [phone] [place] CANCELED 07/13/2016 Visit Plan: Low-dose CT scan-45 PPD of C hest Check hemoccult Discussed updated CT of head to recheck meningioma Zostavax vaccine Will obtain last colonoscopy results Update lab 07/12/2016 Appointment: Cherri Holguin WPtel: [address] [place], [place] [phone] 07/08 confirmed~sl Annual Well Visit 07/12/2016 Patient Education: Patient Medication Summary Completed 07/12/2016 Visit Plan: Gets teeth extracted next mo nth then getting fitted for dentures so some of poor appetite is due to inability to eat certain things Continue current meds Defers flu shot 05/11/2016 Appointment: Cherri Holguin WPtel: [address] [place], [place] [phone] 05/10 confirmed~sl FOLLOW UP 05/11/2016 Patient Education: Patient Medication Summary Completed 05/11/2016 Visit Plan: Discussed nutrition and poss ible shakes as supplement until gets teeth completely pulled and fitted for full dentures Continue current meds Did have right scalp lesion removed 12/23/2015 Appointment: Cherri Holguin WPtel: [address] [place], [place] [phone] 12/21 confirmed-sp FOLLOW UP 12/23/2015 Patient Education: Patient Medication Summary Completed 12/23/2015 Referral: Tabitha Messer WPtel: [facility] [address] [facility] Spoke with Kayli at [facility] and gave her appt information Initiated 10/07/2015 Visit Plan: Start PT for ROM of neck Dis cussed milkshake in place of meal if does not eat at least 20% of meal--patient states she wants to lose weight and does not like the food served there See dermatology for removal of scalp lesion 09/23/2015 Appointment: Cherri Holguin WPtel: [address] [place], [place] [phone] [[email or web address] 09/22/15 appt confirmed with Amber at [facility] FOLLOW UP 09/23/2015 Patient Education: Patient Medication Summary Completed 09/23/2015 Visit Plan: Stop miralax and senokot-s S tart dulcolax daily Patient asking for PT and OT again but admits they don't really help/she doesn't gain much from them 04/15/2015 Appointment: Cherri Holguin WPtel: [address] [place], [place] [phone] 04/11 confirmed with [facility] FOLLOW UP 04/15/2015 Patient Education: Patient Medication Summary Completed 04/15/2015 Visit Plan: Check CBC, CMP, TSH, free T4 , Vit D Continue current meds 01/14/2015 Appointment: Cherri Holguin WPtel: [address] [place] [address] ACUTE ILLNESS 01/14/2015 Patient Education: Patient Medication Summary Completed 01/14/2015 Visit Plan: Change to Senokot-S 2 po BID Add miralax Has been released by burn center for now 10/29/2014 Appointment: Cherri Holguin WPtel: [address] [place] [address] 10/28 with Madiha FOLLOW UP 10/29/2014 Patient Education: Patient Medication Summary Completed 10/29/2014 Visit Plan: Patient is wheelchair bound now Continue current meds Patient following with [facility] end of 08/20/2014 Appointment: Cherri Holguin WPtel: [address] [place] [address] MLP rescheduled due to cold weather 08/19 message with Madiha at [facility] FOLLOW U P 08/20/2014 Patient Education: Patient Medication Summary Completed 08/20/2014 Visit Plan: Patient is eating better--10 0% of meals and wants feeding tube out but waiting on swallow eval Following with burn center and doing dressing changes to left chest every 3 days Refuses flu and pneumonia shots Fwup 4mos if goes to [place] or 1mo if stays in [place] 06/04/2014 Appointment: Cherri Holguin WPtel: [address] [place] [address] FOLLOW UP 06/04/2014 Patient Education: Patient Medication Summary Completed 06/04/2014 Visit Plan: Patient sees burn center nex t week Explained importance of taking nutren routinely as needs nutrition Increase prilosec to 20mg po BID Smoking Cessation 05/06/2014 Appointment: Cherri Holguin WPtel: [address] [place], [place] [phone] [[email or web address] 05/03 vm on patient phone 05/03 message with Maria L at [facility] Follow Up 05/06/2014 Patient Education: Patient Medication Summary Completed 05/06/2014 Visit Plan: Finish abx Brian wrap to left LE and elevate 08/07/2013 Appointment: Cherri Holguin WPtel: [address] [place] [address] Urgent/Quick Care Follow Up 07/10 Patient Education: Patient Medication Summary Completed 08/07/2013 Appointment: Cherri Holguin WPtel: [address] [place] [address] 07/18 appointment confirmed with patient 07/19 NO SHOW FOLLOW UP 07/19/2013 Visit Plan: Continue current meds Contin ue PT 05/23/2013 Appointment: Cherri Holguin WPtel: [address] [place] [address] 05/22 vm...appt confirmed FOLLOW UP 2012 Patient Education: Patient Medication Summary Completed 05/23/2013 Visit Plan: Long discussion about need f or 24hr care Pt wants to go home 04/25/2013 Appointment: Cherri Holguin WPtel: [address] [place] [address] Appt confirmed with Augusto at [facility] Follow Up 04/25/2013 Patient Education: Patient Medication Summary Completed 04/25/2013 [facility]ment[facility] [phone] [id number] [facility]20 message left at [facility] FOLLOW UP 04/23/2013 Visit Plan: Continue current meds 01/22/2013 Appointment: [facility] [phone] [id number] 01/22 vm left FOLLOW UP 01/22/2013 Patient Education: Patient Medication Summary Completed 01/22/2013 Appointment: [facility] [phone] [id number] 11/20 left message...patient called in a t 10:00am and said she was unable to get to her car. She rescheduled for 11/27 11am 11/24 left message 11/29 called to confirm, patient cancell ed due to no ride from [facility]. patient will call [facility] and see when they can bring her and then call us to schedule FOLLOW UP 11/30/2012 Visit Plan: Going to go home at the end of week with caregiver Continue current meds 10/18/2012 Appointment: Cherri Holguin WPtel: [address] [place], [place] [phone] 10/17 appt confirmed with Reyna FOLLOW UP 10/18/2012 Patient Education: Patient Medication Summary Completed 10/18/2012 Visit Plan: Continue and finish PT Sultana nue current meds Fwup October 19 or --pts 100 days is up October 21 09/25/2012 Appointment: [facility] [phone] [id number] [place] worked in since skilled nursing just droppe d her off. She was on shedule at one point but showed it was cancelled WORK IN Appointment: Cher[facility] [phone] [id number] 07/17 Cancelled 09/25 Appt - Patient has appointments on 07/08 & 07/27 FOLLOW UP 09/25/2012 Patient Education: Patient Medication Summary Completed 09/25/2012 Visit Plan: Continue current meds Pt wan ts to go home when her 100 days are up 08/24/2012 Appointment: Cherri Holguin WPtel: [address] [place], [place] [phone] FOLLOW UP 08/24/2012 Patient Education: Patient Medication Summary Completed 08/24/2012 Visit Plan: DC tramadol Repeat UA and ch edu UDS Start PT for neck Discussed neurology eval, but pt has been to several in past and even [facility] 07/27/2012 Appointment: Cherri Holguin WPtel: [address] [place], [place] [phone] FOLLOW UP 07/27/2012 Patient Education: Patient Medication Summary Completed 07/27/2012 Appointment: Cherri Holguin WPtel: [address] [place], [place] [phone] 07/17 - left message..07/17 left message with Antonella at [facility] pt has appt tomorrow and on I think the 07/18 appt was scheduled prior to hospitalization. 07/18 no showed. just entered skilled nursing so no show is forgiven FOLLOW UP 07/18/2012 Appointment: Tasneem Esquivel WPtel: [address] [place], [place] [email or web address] ACUTE ILLNESS 07/05/2012 Patient Education: Patient Medication Summary Completed 07/05/2012 Appointment: Cherri Holguin WPtel: [address] [place], [place] [phone] FOLLOW UP 05/29/2012 Patient Education: Patient Medication Summary Completed 05/29/2012 Appointment: Cherri Holguin WPtel: [address] [place], [place] [phone] [place] FOLLOW UP 02/02/2012 Patient Education: Patient Medication Summary Completed 02/02/2012 Visit Plan: Continue current meds Check CBC, CMP, TSH, Free T4, B12 11/03/2011 Appointment: Cherri Holguin WPtel: [address] [place] [address] FOLLOW UP 11/03/2011 Patient Education: Patient Medication Summary Completed 11/03/2011 Visit Plan: Adderall refilled Continue c urrent meds 08/25/2011 Appointment: Cherri Holguin WPtel: [address] [place] [address] FOLLOW UP 08/25/2011 Patient Education: Patient Medication Summary Completed 08/25/2011 Appointment: Cherri Holguin WPtel: [address] [place] [address] Appointment was confirmed. FOLLOW UP 08/16 Visit Plan: Esther is eye doctor. Will u se eye drop.(Cipro as she claims allergy (nausea). Pt. is accompanied by "grounds keepers" from [facility]. Written instructions given for pt. to be seen in follow up by Esther. Written RX also given to pt. for cipro eye drops. Pt. is instructed that the RX has been electronically sent to [facility]. 05/27/2011 Appointment: Tasneem Esquivel WPtel: [address] [place] [address] ACUTE ILLNESS 05/27/2011 Patient Education: Patient Medication Summary Completed 05/27/2011 Visit Plan: Continue increased dose of A dderall 04/15/2011 Appointment: Cherri Holguin WPtel: [address] [place], [place] [phone] FOLLOW UP 04/15/2011 Patient Education: Patient Medication Summary Completed 04/15/2011 Appointment: Cherri Holguin WPtel: [address] [place] [address] FOLLOW UP 03/22/2011 Patient Education: Patient Medication Summary Completed 03/22/2011 Appointment: Cherri Holguin WPtel: [address] [place], [place] [phone] FOLLOW UP 02/25/2011 Visit Plan: Trial of Wellbutrin XL 150mg q AM 02/22/2011 Appointment: Cherri Holguin WPtel: [address] [place] [address] FOLLOW UP 02/22/2011 Patient Education: Patient Medication Summary Completed 02/22/2011 Visit Plan: Continue PT Add Cymbalta 30m g daily 01/26/2011 Appointment: Cherri Holguin WPtel: [address] [place] [address] FOLLOW UP 01/26/2011 Patient Education: Patient Medication Summary Completed 01/26/2011 Visit Plan: Cont current meds and PT Exa m for Power chair completed Adderall rx refilled 06/15/2010 Appointment: Cherri Holguin WPtel: [address] [place] [address] ESTABLISHED PATIENT 06/15/2010 Patient Education: Patient Medication Summary Completed 06/15/2010 Visit Plan: To rehab today for PT/OT--I will follow on rehab unit 05/04/2010 Appointment: Cherri Holguin WPtel: [address] [place] [address] FOLLOW UP 05/04/2010 Patient Education: Patient Medication Summary Completed 05/04/2010 Visit Plan: Cont PT Cont Forteo Long dis cussion about living home--will discuss with PT when finishes this session 03/03/2010 Appointment: Cherri Holguin WPtel: [address] [place] [address] FOLLOW UP 03/03/2010 Patient Education: Patient Medication Summary Completed 03/03/2010 Visit Plan: EGD by Dr. Dang Pt agrees to restart Forteo 10/20/2009 Appointment: Cherri Holguin WPtel: [address] [place] [address] FOLLOW UP 10/20/2009 Patient Education: Patient Medication Summary Completed 10/20/2009 Referral: Antonio Gandhi WPtel: [phone] [id number] [place] Referral Initiated Instructions Comment . Low-dose [...] been to several in past and even [facility] . Continue current meds Check CBC, CMP, TSH, Free T4, B12 . Adderall refilled Continue current meds . 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 Will use eye bj p.(Cipro as she claims allergy (nausea). Pt. is accompanied by "grounds keepers" from [employer]. Written instructions given for pt. to be [...]
--- OUTSIDE RECORDS SUMMARY | 2020-03-05 20:51 | XMS REPORT | CCD ---
Author Author Rosario Holguin D.O. Organization [facility] Address [address] [place] [address] Phone Care Team Providers Care License Registration Examiner Name Role Phone Cherri Holguin D.O., PP Unavailable CCM Unavailable Summary Purpose Interface Exchange Insurance Providers Payer name Policy type / Coverage type Covered green party ID Effective Begin Date Effective End Date WPS MEDICARE PART B [place] Medicare Part B [id number] Unknown AARP Medicare Part B [id number] Unknown Family History Family History data not found Social History Social History Element Codes Description Effective Dates Tobacco history SNOMED CT: 1244687 Former smoker 04/15/2015 Allergies, Adverse Reactions, Alerts Substance Reaction Codes Entered Date Inactivated Date Status _ Unknown 03/03/2010 No Inactive Date Active * NO KNOWN FOOD ALLERGIES Unknown 10/20/2009 No Inactiv e Date Active _ Unknown 10/20/2009 No Inactive Date Active Erythromycin nausea, _ Unknown 10/20/2009 No Inactive Date Active Problems Condition Codes Effective Dates Condition Status Muscle weakness (generalized) ICD-9: 728.87 ICD-10: M62.81 [...] Start Date Stop Date Status Fill Instructions cyanocobalamin (vit B-12) 1,000 mcg/mL injection solution Rx Norm: 106873 1 Milliliter(s) Intramuscular every 2 weeks 06/26/2019 09/24/2019 Inacti ve cyanocobalamin (vit B-12) 1,000 mcg/mL injection solution Rx Norm: 511750 1 Milliliter(s) Intramuscular every 2 weeks 06/26/2019 06/25/2019 Inacti ve bisacodyl 10 mg rectal suppository RxNorm: 447885 1 Sup pository Rectal QD as needed 05/10/2019 No Stop Date Active glycerin (adult) rectal suppository RxNorm: 7479693 1 Suppositor y RTL BIW 07/25/2018 10/22/2018 Inactive rabeprazole 20 mg tablet,delayed release RxNorm: 577767 1 Table t(s) PO QD 03/01/2018 05/29/2018 Inactive replaces lansoprazol e Adderall XR 10 mg capsule,extended release RxNorm: 635467 1 Cap teresa(s) PO QAM 10/20/2017 12/19/2017 Inactive Tessalon Perles 100 mg capsule RxNorm: 562205 1 Capsule (s) PO TID as needed for cough 09/16/2017 09/30/2019 Inactive Cymbalta 30 mg capsule,delayed release RxNorm: 769861 1 Capsule (s) PO QD 08/17/2017 No Stop Date Active nystatin 100,000 unit/gram topical powder RxNorm: 412545 1 Appl ication TOP BID 08/16/2017 02/14/2018 Inactive Adderall XR 10 mg capsule,extended release RxNorm: 843186 1 Cap teresa(s) PO QAM 08/11/2017 09/09/2017 Inactive Adderall XR 10 mg capsule,extended release RxNorm: 374458 1 Cap teresa(s) PO QAM 08/04/2017 08/03/2017 Inactive Adderall XR 10 mg capsule,extended release RxNorm: 012636 1 Cap teresa(s) PO QAM 08/04/2017 08/10/2017 Inactive Bactrim DS 800 mg-160 mg tablet RxNorm: 701191 1 Tablet(s) PO BID 1 08/28/2016 07/07/2017 Inactive clindamycin 300 mg capsule RxNorm: 306459 2 Capsule(s) PO TID doses for today and tomorrow 11/30/2016 05/01/2017 Inactive ketoconazole 2 % shampoo RxNorm: 492772 1 Application TOP twice a week 09/14/2016 05/01/2017 Inactive hydrocodone 5 mg-acetaminophen 325 mg tablet RxNorm: 657884 1 Tablet(s) PO Q6H as needed for pain 07/12/2016 05/01/2017 Inactive Cipro 250 mg tablet RxNorm: 885854 1 Tablet(s) PO BID 09/29/201509/09 Inactive cefuroxime axetil 250 mg tablet RxNorm: 327948 1 Tablet(s) PO BID 0 09/10/2015 09/16/2015 Inactive Micro-K 8 mEq capsule,extended release RxNorm: 156358 1 Capsule (s) PO QD 08/20/2015 08/16/2017 Inactive Micro-K 8 mEq capsule,extended release RxNorm: 370231 1 Capsule (s) PO QD 08/20/2015 08/19/2015 Inactive Adderall XR 20 mg capsule,extended release RxNorm: 205584 1 Cap teresa(s) PO QAM 04/30/2015 02/11/2016 Inactive hydroxyzine HCl 25 mg tablet RxNorm: 329753 1 Tablet(s) PO Q6H as needed for itching/hives 04/02/2015 09/12/2016 Inactive Miralax 17 gram oral powder packet RxNorm: 327703 17 Gr am(s) PO BID for constipation 02/26/2015 02/11/2016 Inactive Adderall XR 20 mg capsule,extended release RxNorm: 597255 1 Cap teresa(s) PO QAM 07/09/2014 08/07/2014 Inactive Adderall 20 mg tablet RxNorm: 043600 2 Tablet(s) PO QD 02/04/201408/2013 Inactive [AttnRPh: Saving apply/adjudicate RxGRP: SG20 RxBIN:[id number] RxPCN: ID#:[id number]] triamcinolone acetonide 0.1 % topical cream RxNorm: 0676855 1 Application TOP BID to affected area as needed 12/12/2013 01/13/2015 Inactive [ AttnRPh: Saving apply/adjudicate RxGRP:SG20 RxBIN:[id number] RxPCN:HT ID#:[id number]] Adderall 20 mg tablet RxNorm: 329843 2 Tablet(s) PO QD 12/04/2013 Inactive [AttnRPh: Saving apply/adjudicate RxGRP: SG20 RxBIN:[id number] RxPCN:HT ID#:[id number]] Adderall 20 mg tablet RxNorm: 642339 2 Tablet(s) PO QD 12/03/2013 Inactive [AttnRPh: Saving apply/adjudicate RxGRP: SG20 RxBIN:[id number] RxPCN: ID#:[id number]] Adderall 20 mg tablet RxNorm: 891066 2 Tablet(s) PO QD 11/02/2013 Inactive Adderall 20 mg tablet RxNorm: 695099 2 Tablet(s) PO QD 10/01/2013 Inactive meloxicam 7.5 mg tablet RxNorm: 973142 1 Tablet(s) PO QD 09/24/2013 0 08/19/2014 Inactive lisinopril 20 mg tablet RxNorm: 374681 1 Tablet(s) PO QD 09/24/2013 0 08/19/2014 Inactive Protonix 40 mg tablet,delayed release RxNorm: 329207 1 Tablet(s ) PO QD 09/24/2013 08/19/2014 Inactive Adderall 20 mg tablet RxNorm: 150562 2 Tablet(s) PO QD 08/29/2013 Inactive Adderall 20 mg tablet RxNorm: 771435 2 Tablet(s) PO QD 08/02/2013 Inactive hydroxyzine HCl 25 mg tablet RxNorm: 644815 1 Tablet(s) PO Q6H as needed 06/29/2013 08/19/2014 Inactive Adderall 20 mg tablet RxNorm: 290786 2 Tablet(s) PO QD 05/22/2013 Inactive Protonix 40 mg tablet,delayed release RxNorm: 903162 1 Tablet(s ) PO QD 05/15/2013 09/11/2013 Inactive meloxicam 7.5 mg tablet RxNorm: 756247 1 Tablet(s) PO QD 05/15/2013 0 09/11/2013 Inactive lisinopril 20 mg tablet RxNorm: 356126 1 Tablet(s) PO QD 05/15/2013 0 09/11/2013 Inactive Adderall 20 mg tablet RxNorm: 076085 2 Tablet(s) PO QD 04/02/2013 No Stop Date Active Adderall 20 mg tablet RxNorm: 646135 2 Tablet(s) PO QD 02/27/2013 No Stop Date Active Adderall 20 mg tablet RxNorm: 589014 2 Tablet(s) PO QD 01/22/2013 No Stop Date Active Adderall 20 mg tablet RxNorm: 785986 2 Tablet(s) PO QD 12/28/2012 No Stop Date Active Adderall 20 mg tablet RxNorm: 310832 2 Tablet(s) PO QD 12/01/2012 No Stop Date Active Adderall 20 mg tablet RxNorm: 998475 2 Tablet(s) PO QD 11/01/2012 No Stop Date Active K-Dur 20 mEq tablet,extended release RxNorm: 184955 1 Tablet(s) PO QD 10/19/2012 11/26/2018 Inactive meloxicam 7.5 mg tablet RxNorm: 270851 1 Tablet(s) PO QD 10/19/2012 0 04/16/2013 Inactive Protonix 40 mg tablet,delayed release RxNorm: 889423 1 Tablet(s ) PO QD 10/19/2012 04/16/2013 Inactive lisinopril 20 mg tablet RxNorm: 778837 1 Tablet(s) PO QD 10/19/2012 0 04/16/2013 Inactive Cipro 500 mg tablet RxNorm: 472590 1 Tablet(s) PO BID 07/05/201211/2011 Inactive Adderall XR 20 mg capsule,extended release RxNorm: 920995 2 Cap teresa(s) PO QAM 06/12/2012 07/26/2012 Inactive Adderall XR 20 mg capsule,extended release RxNorm: 978364 2 Cap teresa(s) PO QAM 05/16/2012 06/11/2012 Inactive Adderall XR 20 mg capsule,extended release RxNorm: 433243 2 Cap teresa(s) PO QAM 04/21/2012 05/15/2012 Inactive Adderall XR 20 mg capsule,extended release RxNorm: 350941 2 Cap teresa(s) PO QAM 02/16/2012 03/16/2012 Inactive Enablex 15 mg 24 hr Tab RxNorm: 463528 1 Tablet(s) PO QPM repla mady Vesicare 02/07/2012 05/28/2012 Inactive Enablex 15 mg 24 hr Tab RxNorm: 302725 1 Tablet(s) PO QPM repla mady Vesicare 02/07/2012 08/04/2012 Inactive Protonix 40 mg Tab RxNorm: 485071 1 Tablet(s) PO QD 02/07/20122011 Inactive Protonix 40 mg Tab RxNorm: 816512 1 Tablet(s) PO QD 02/02/20122011 Inactive Enablex 15 mg 24 hr Tab RxNorm: 424691 1 Tablet(s) PO QPM repla mady Vesicare 02/02/2012 02/06/2012 Inactive Adderall XR 20 mg 24 hr Cap RxNorm: 757190 2 Capsule(s) PO QAM 01/0602/15/2012 Inactive Adderall XR 20 mg 24 hr Cap RxNorm: 119537 2 Capsule(s) PO QAM 12/0601/15/2012 Inactive Adderall XR 20 mg 24 hr Cap RxNorm: 003460 2 Capsule(s) PO QAM 11/0612/16/2011 Inactive Adderall XR 20 mg 24 hr Cap RxNorm: 698294 2 Capsule(s) PO QAM 10/0611/17/2011 Inactive Adderall XR 20 mg 24 hr Cap RxNorm: 414319 2 Capsule(s) PO QAM 09/0910/24/2011 Inactive Prevacid 30 mg Cap RxNorm: 262843 1 Capsule(s) PO QD 07/30/201109/27 Inactive Adderall XR 20 mg 24 hr Cap RxNorm: 994253 2 Capsule(s) PO QAM 07/0908/28/2011 Inactive Adderall XR 20 mg 24 hr Cap RxNorm: 969174 2 Capsule(s) PO QAM 06/0807/21/2011 Inactive ciprofloxacin 0.3 % Eye Drops RxNorm: 752883 2 Drop(s) OPH Q2H 05/0905/31/2011 Inactive Adderall XR 20 mg 24 hr Cap RxNorm: 806499 2 Capsule(s) PO QAM 05/08 No Stop Date Active Wellbutrin XL 150 mg 24 hr Tab RxNorm: 342185 1 Tablet(s) PO QAM 04/14/2011 Inactive Vesicare 10 mg Tab RxNorm: 326219 1 Tablet(s) PO QD 12/24/20102011 Inactive Vesicare 10 mg Tab RxNorm: 965884 1 Tablet(s) PO QD 12/21/20102018 Inactive Adderall XR 30 mg 24 hr Cap RxNorm: 114040 1 Capsule(s) PO QD 11/1712/16/2010 Inactive Vesicare 10 mg Tab RxNorm: 775961 1 Tablet(s) PO QD 09/21/20102010 Inactive Adderall XR 30 mg 24 hr Cap RxNorm: 276776 1 Capsule(s) PO 09/17/1910/16/2010 Inactive Adderall XR 30 mg 24 hr Cap RxNorm: 235011 1 Capsule(s) PO QAM 07/0911/26/2018 Inactive Adderall XR 30 mg 24 hr Cap RxNorm: 880749 1 Capsule(s) PO QAM 07/0908/03/2010 Inactive Adderall XR 20 mg 24 hr Cap RxNorm: 448421 2 Capsule(s) PO QD 01/2602/02/2010 Inactive Adderall XR 20 mg 24 hr Cap RxNorm: 054761 1 Capsule(s) PO QD 01/2605/03/2010 Inactive Forteo 20 mcg/dose (600 mcg/2.4 mL) Sub-Q Pen Injector RxNorm: 1 002782 SQ 12/30/2009 01/25/2011 Inactive hyoscyamine 0.125 mg sublingual tablet RxNorm: 2599721 1 Tablet(s) SL Q4H as needed for excessive secretions No Start Date Active Senokot-S 8.6 mg-50 mg tablet RxNorm: 0468315 2 Tablet(s) PO BID No Start Date Active rabeprazole 20 mg tablet,delayed release RxNorm: 460136 1 Table t(s) PO QD No Start Date Active Micro-K 10 10 mEq capsule,extended release RxNorm: 579814 1 Cap teresa(s) PO QD No Start Date Active docusate sodium 100 mg tablet RxNorm: 5531886 1 Tablet(s) PO Q8H as needed No Start Date Active ondansetron HCl 4 mg tablet RxNorm: 794781 1 Tablet(s) PO Q4H a s needed No Start Date Active Vitamin D3 5,000 unit tablet RxNorm: 929330 1 Tablet(s) PO QD No Star t Date Active bisacodyl 5 mg tablet RxNorm: 953375 1 Tablet(s) PO BID as needed N o Start Date Active aspirin 81 mg tablet RxNorm: 622860 1 Tablet(s) PO QD No Start Date Active Multivitamin And Mineral oral RxNorm: oral No Start Date Active Benadryl 1 % topical cream RxNorm: 4015891 TOP as needed for hiv es No Start Date Active K-Dur 20 mEq tablet,extended release RxNorm: 844267 1 Tablet(s) PO QD No Start Date 08/19/2014 Inactive Colace 100 mg capsule RxNorm: 8780444 1 Capsule(s) PO BID No Start Date 01/19/2017 Inactive ketoconazole 2 % shampoo RxNorm: 068858 1 Application TOP twice a week No Start Date 09/13/2016 Inactive ibuprofen 600 mg tablet RxNorm: 991530 1 Tablet(s) PO Q6H as ne eded No Start Date 06/21/2018 Inactive Zaditor 0.025 % Eye Drops RxNorm: 401305 1 Drop(s) OPH BID No Start Date 05/28/2012 Inactive senna 8.6 mg tablet RxNorm: 150843 2 Tablet(s) PO BID No Start Date 0 02/11/2016 Inactive senna 8.6 mg tablet RxNorm: 431079 1 Tablet(s) PO BID No Start Date 0 02/11/2016 Inactive Amoxil 500 mg capsule RxNorm: 475191 1 Capsule(s) PO BID No Start D ate 05/01/2017 Inactive lisinopril 20 mg tablet RxNorm: 907765 1 Tablet(s) PO QD No Start D ate 10/18/2012 Inactive Prevacid 30 mg Capsule, delayed release RxNorm: 756019 1 Capsul e(s) PO QD No Start Date 02/01/2012 Inactive Senokot-S 8.6 mg-50 mg Tab RxNorm: 4144987 2 Tablet(s) PO QD PRN No Start Date 03/02/2010 Inactive Cymbalta 30 mg capsule,delayed release RxNorm: 272223 1 Capsule (s) PO QD No Start Date 08/16/2017 Inactive ketoconazole 2 % topical cream RxNorm: 452079 1 Applica tion TOP BID to scaly eyebrows No Start Date 05/01/2017 Inactive lorazepam 0.5 mg tablet RxNorm: 666379 1 Tablet(s) PO Q4H as ne eded No Start Date 06/21/2018 Inactive Vitamin C 500 mg tablet RxNorm: 158361 1 Tablet(s) PO QD No Start D ate 01/21/2013 Inactive albuterol sulfate 2.5 mg/3 mL (0.083 %) Neb Solution RxNorm: 848398 Milliliter(s) INH 1 vial in nebulizer every 4 hours as needed No Start Date 01/21/2013 Inactive Adderall XR 20 mg 24 hr Cap RxNorm: 185159 1 Capsule(s) PO QAM No S tart Date 01/25/2011 Inactive Xanax 0.25 mg Tab RxNorm: 829688 1/2 Tablet(s) PO BID PRN No Start Date 03/02/2010 Inactive Tylenol Extra Strength 500 mg Tab RxNorm: 561605 2 Tablet(s) PO PRN No Start Date 08/24/2011 Inactive Adderall 20 mg tablet RxNorm: 559570 2 Tablet(s) PO QD No Start Date 10/31/2012 Inactive bisacodyl 5 mg tablet,delayed release RxNorm: 597220 1 Tablet(s) PO Q12H as needed No Start Date 02/04/2019 Inactive Tessalon Perles 100 mg capsule RxNorm: 644589 1 Capsule (s) PO TID as needed for cough No Start Date 09/15/2017 Inactive Vitamin D3 1,000 unit tablet RxNorm: 508193 3 Tablet(s) PO QD No St art Date 02/22/2017 Inactive meloxicam 7.5 mg tablet RxNorm: 423979 1 Tablet(s) PO QD No Start D ate 10/18/2012 Inactive Bactroban 2 % topical ointment RxNorm: 492946 1 Application TOP QD No Start Date 12/11/2017 Inactive Toviaz 8 mg 24 hr Tab RxNorm: 310624 1 Tablet(s) PO QD No Start Date 09/21/2010 Inactive Prevacid 15 mg capsule,delayed release RxNorm: 810175 Capsule(s ) PO QD No Start Date 02/28/2018 Inactive K-Dur 20 mEq tablet,extended release RxNorm: 5825495 1 Tablet(s) PO QD No Start Date 10/18/2012 Inactive Adderall XR 20 mg 24 hr Cap RxNorm: 076661 2 Capsule(s) PO QAM No S tart Date 05/24/2011 Inactive Calcium with Vitamin D 600 mg-400 unit Tab RxNorm: 365071 1 Tab let(s) PO QD No Start Date 08/24/2011 Inactive Miralax 17 gram oral powder packet RxNorm: 415815 17 Gram(s) PO BID as needed No Start Date 11/26/2018 Inactive Zestril 10 mg Tab RxNorm: 393881 1 Tablet(s) PO QD No Start Date 10/06 Inactive baclofen 10 mg tablet RxNorm: 756251 1 Tablet(s) PO QHS No Start Da te 09/11/2015 Inactive Tums 500 Oral RxNorm: Oral No Start Date 01/13/2015 Inactive Senokot-S 8.6 mg-50 mg tablet RxNorm: 8112977 1 Tablet(s) PO BID No Start Date 11/26/2018 Inactive Prozac 10 mg Tab RxNorm: 977186 1 Capsule(s) PO QD No Start Date 10/06 Inactive Elavil 10 mg tablet RxNorm: 009164 1 Tablet(s) PO QHS No Start Date 0 12/12/2018 Inactive Dulcolax Stool Softener (docusate) 100 mg capsule RxNorm: 12 30092 1 Capsule(s) PO Q8H as needed No Start Date 01/19/2017 Inactive Adderall XR 30 mg 24 hr Cap RxNorm: 977717 1 Capsule(s) PO QAM No S tart Date 04/14/2011 Inactive Milk of Magnesia-Cascara 15.25 % oral suspension RxNorm: oral No Start Date 11/26/2018 Inactive Tylenol 325 mg tablet RxNorm: 146314 2 Tablet(s) PO Q4H as needed N o Start Date 11/26/2018 Inactive Prilosec 20 mg capsule,delayed release RxNorm: 051571 1 Capsule (s) PO BID No Start Date 09/08/2014 Inactive Tylenol 8 Hour 650 mg tablet,extended release RxNorm: 517690 0 1 Tablet(s) PO Q4H as needed No Start Date 11/26/2018 Inactive Vitamin D3 2,000 unit tablet RxNorm: 610493 1 Tablet(s) PO QD No St art Date 02/22/2017 Inactive nystatin 100,000 unit/gram topical powder RxNorm: 742126 1 Appl ication TOP BID No Start Date 08/15/2017 Inactive morphine 20 mg/5 mL (4 mg/mL) oral solution RxNorm: 210992 .25 Milliliter(s) PO Q4H as needed No Start Date 09/24/2018 Inactive Forteo 20 mcg/dose (750 mcg/3 mL) Sub-Q Pen Injector RxNorm: 143 5115 SQ QD No Start Date 01/21/2010 Inactive ciprofloxacin 0.3 % Eye Drops RxNorm: 222319 2 Drop(s) OPH TID to affected eye No Start Date 08/23/2012 Inactive bisacodyl 5 mg tablet RxNorm: 412602 1 Tablet(s) PO BID No Start Da te 02/11/2016 Inactive Avosil 2 %-0.2 % topical ointment RxNorm: 1 Appl ication TOP Q8H as needed to burn sites No Start Date 11/26/2018 Inactive Milk of Magnesia 800 mg/5 mL oral suspension RxNorm: 467326 Milliliter(s) PO as needed No Start Date 06/20/2018 Inactive Atarax 25 mg tablet RxNorm: 899981 1 Tablet(s) PO Q4H prn itchi ng/hives No Start Date 08/24/2011 Inactive Adderall XR 30 mg 24 hr Cap RxNorm: 851464 1 Capsule(s) PO QAM No S tart Date 07/26/2010 Inactive Prevacid 30 mg Cap RxNorm: 674431 1 Capsule(s) PO QD No Start Date Inactive Vitamin C 500 mg tablet RxNorm: 615808 1 Tablet(s) PO BID No Start Date 07/11/2016 Inactive Vistaril 25 mg capsule RxNorm: 589724 1 Capsule(s) PO Q4H PRN No St art Date 03/02/2010 Inactive tramadol 50 mg tablet RxNorm: 979327 1 Tablet(s) PO TID as need ed for pain No Start Date 01/21/2013 Inactive Multivitamin & Mineral Formula tablet RxNorm: 1 Tablet(s) PO Q D No Start Date 06/22/2018 Inactive hydrocodone 5 mg-acetaminophen 325 mg tablet RxNorm: 308761 1 Tablet(s) PO Q4H as needed for pain No Start Date 06/24/2019 Inactive Multivitamin & Mineral Formula Oral RxNorm: Oral No Start Da te 03/02/2010 Inactive Miralax 17 gram oral powder packet RxNorm: 996742 17 Gr am(s) PO QPM for constipation No Start Date 02/25/2015 Inactive Percocet 5 mg-325 mg tablet RxNorm: 1323223 1-2 Tablet(s) PO Q4H as needed No Start Date 09/24/2018 Inactive triamcinolone acetonide 0.1 % topical cream RxNorm: 5124909 1 Application TOP TID to affected area as needed No Start Date 12/12/2013 Inactive rabeprazole 20 mg tablet,delayed release RxNorm: 704747 1 Table t(s) PO QD No Start Date 09/24/2018 Inactive Protonix 40 mg tablet,delayed release RxNorm: 820044 1 Tablet(s ) PO QD No Start Date 10/18/2012 Inactive Mobic 7.5 mg Tab RxNorm: 382162 1 Tablet(s) PO BID No Start Date 10/06 Inactive Sinemet CR 50 mg-200 mg Tab RxNorm: 686245 1 Tablet(s) PO QD No Sta rt Date 03/02/2010 Inactive Adderall XR 20 mg 24 hr Cap RxNorm: 325509 2 Capsule(s) PO QD No St art Date 02/02/2010 Inactive Medication Administered No Medication Administered data Immunizations No Immunization data Results Observation Observation Code Item Item Code Result Date S [facility] Location COMPLETE BLOOD COUNT [id number] WBC 7.3 10e9/L 05/29/20 12 Unknown COMPLETE BLOOD COUNT [id number] RBC 5.20 10e12/L 2011 Unknown COMPLETE BLOOD COUNT [id number] HGB 15.3 g/dL 2 Unknown COMPLETE BLOOD COUNT [id number] HCT DET 45.9 % 2 Unknown COMPLETE BLOOD COUNT [id number] MCV 88.3 fL 2 Unknown COMPLETE BLOOD COUNT [id number] MCH 29.4 pg 2 Unknown COMPLETE BLOOD COUNT [id number] MCHC 33.3 g/dL 2 Unknown COMPLETE BLOOD COUNT [id number] PLT 341 10e9/L 05/29/20 12 Unknown COMPLETE BLOOD COUNT [id number] MPV 10.1 fL 2 Unknown COMPLETE BLOOD COUNT [id number] ASHLEY % 63.2 % 2 Unknown COMPLETE BLOOD COUNT [id number] LY % 27.4 % 2 Unknown COMPLETE BLOOD COUNT [id number] MON % 7.6 % 2 Unknown COMPLETE BLOOD COUNT [id number] EOS % 1.5 % 2 Unknown COMPLETE BLOOD COUNT [id number] BASO % 0.3 % 2 Unknown COMPLETE BLOOD COUNT [id number] RDW 13.6 % 2 Unknown COMPLETE BLOOD COUNT [id number] ABS ASHLEY 4.61 10e9/L 012 Unknown COMPLETE BLOOD COUNT [id number] ABS LYMPH 2.00 10e9/L 012 Unknown COMPLETE BLOOD COUNT [id number] ABS MONO 0.55 10e9/L 012 Unknown COMPLETE BLOOD COUNT [id number] ABS EOS 0.11 10e9/L 012 Unknown COMPLETE BLOOD COUNT [id number] ABS BASO 0.02 10e9/L 012 Unknown COMPLETE BLOOD COUNT [id number] RDW-SD 43.5 fL 2 Unknown THYROID STIMULATING HORMONE 86175 TSH 1.487 uIU/ML 05/29/2012 Unknown GFR CALC [id number] GFR AA >60 ML/MIN 05/29/2012 Unknown GFR CALC [id number] GFR NON-AA >60 ML/MIN 05/29/2012 Unknown FREE T4 08853 FREE T4 1.20 NG/DL 05/29/2012 Unknown COMPREHENSIVE METABOLIC 47695 AST 17 U/L 2011 Unknown COMPREHENSIVE METABOLIC 45271 ALT 16 IU/L 2011 Unknown COMPREHENSIVE METABOLIC 14426 BUN 9 MG/DL 2011 Unknown COMPREHENSIVE METABOLIC 94605 ALBUMIN 4.1 GM/DL 2011 Unknown COMPREHENSIVE METABOLIC 02776 CHLORIDE 106 MMOL/L 05/29 Unknown COMPREHENSIVE METABOLIC 92423 BILI TOT 0.4 MG/DL 2011 Unknown COMPREHENSIVE METABOLIC 38858 ALK PHOS 87 U/L 2011 Unknown COMPREHENSIVE METABOLIC 32656 SODIUM 142 MMOL/L 05/29 Unknown COMPREHENSIVE METABOLIC 57573 CREATININE 0.79 MG/DL 05/09 Unknown COMPREHENSIVE METABOLIC 43327 CALCIUM 9.2 MG/DL 2011 Unknown COMPREHENSIVE METABOLIC 41240 POTASSIUM 3.6 MMOL/L 05/29 Unknown COMPREHENSIVE METABOLIC 83964 PROT TOT 6.5 GM/DL 2011 Unknown COMPREHENSIVE METABOLIC 94585 Glucose 78 MG/DL 2011 Unknown COMPREHENSIVE METABOLIC 35601 BICARB 27 MMOL/L 2011 Unknown COMPREHENSIVE METABOLIC 07442 ANION GAP 9 MEQ/L 2011 Unknown Procedures Procedure Codes Date PPPS, subseq visit CPT-4: G0439 08/03/2018 PPPS, subseq visit CPT-4: G0439 07/12/2016 CUR TOBACCO NON-USER CPT-4: G8457 04/15/2015 URINALYSIS NONAUTO W/O SCOPE CPT-4: 84189 07/05/2012 URINE CULTURE/ COLONY COUNT CPT-4: 40557 07/05/2012 PRESCRIP TRANSMIT VIA ERX SY CPT-4: G8553 07/05/2012 ROUTINE VENIPUNCTURE CPT-4: 84882 05/29/2012 ASSAY OF FREE THYROXINE CPT-4: 36669 05/29/2012 ASSAY THYROID STIM HORMONE CPT-4: 94077 05/29/2012 COMPREHEN METABOLIC PANEL CPT-4: 42519 05/29/2012 COMPLETE CBC W/AUTO DIFF WBC CPT-4: 79926 05/29/2012 PRESCRIP TRANSMIT VIA ERX SY CPT-4: G8553 05/29/2012 PRESCRIP TRANSMIT VIA ERX SY CPT-4: G8553 02/02/2012 PRESCRIP TRANSMIT VIA ERX SY CPT-4: G8553 05/27/2011 PRESCRIP TRANSMIT VIA ERX SY CPT-4: G8553 02/22/2011 SERVICE REQUIRED FOR PMD CPT-4: G0372 06/15/2010 ROUTINE VENIPUNCTURE CPT-4: 15870 10/20/2009 Vital Signs Date Vital 10/01/2019 Blood Pressure 1: 92/60 Code: 8480-6 [...] / 97.9 (F) 12/13/2018 Blood Pressure 1: 112 Code: 8480-6 Heart Rate 1: 72 bpm [...] 1: 114/66 Code: 8480-6 BMI: 25.8 Code: 81826-2 Heart Rate 1: 72 bpm Height: 5'2" [...] 1: 122/80 Code: 8480-6 BMI: 24.9 Code: 78503-9 Heart Rate 1: 100 bpm Height: 5'2" Respiratory Rate: 20 bpm Temperature: 37 .1 (C) / 98.8 (F) Weight: 136 lbs 11/03/2011 Blood Pressure 1: 104/60 Code: 8480-6 BMI: 24.1 Code: 60171-6 Heart Rate 1: 88 bpm Height: 5'2" Respiratory Rate: 20 bpm Temperature: 36 .6 (C) / 97.8 (F) Weight: 132 lbs 08/25/2011 Blood Pressure 1: 128/86 Code: 8480-6 BMI: 24.9 Code: 25543-7 Heart Rate 1: 76 bpm Height: 5'2" Respiratory Rate: 20 bpm Temperature: 36 .2 (C) / 97.2 (F) Weight: 136 lbs 05/27/2011 Blood Pressure 1: 130/90 Code: 8480-6 BMI: 25.1 Code: 57516-1 Heart Rate 1: 68 bpm Height: 5'2" [...] 1: 114/70 Code: 8480-6 BMI: 22.9 Code: 12416-3 Heart Rate 1: 92 bpm Height: 5'2" Temperature: 36.4 (C) / 97.5 (F) Weight: 125 lbs Functional Status No Functional Status data Reason For Visit Reason For Visit Effective Dates Notes follow up 10/01/2019 follow up 06/25/2019 follow [...] N/V Encounters Encounter Performer Location Codes Date ([id number]) OFFICE/OUTPATIENT VISIT EST 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] Diagnosis: Muscle weakness (generalized)[ICD10: M62.81] Cherri HOLGUIN [employer] [facility] CPT-4: 33477 10/01/2019 ([id number]) OFFICE/OUTPATIENT VISIT EST Diagnosis: Personal history of malignant neoplasm of brain[ICD10: Z85.841] Diagnosis: Muscle weakness (generalized)[ICD10: M62.81] Diagnosis: Hemiplegia, unspecified affecting left dominant side[ICD10: G81.92] Diagnosis: Contracture, 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] Cherri HOLGUIN DO [facility] CPT-4: 24403 06/25/2019 ([id number]) OFFICE/OUTPATIENT VISIT EST Diagnosis: Attention and concentration deficit[ICD10: R41.840] Diagnosis: Abnormal weight loss[ICD10: R63.4] Cherri HOLGUIN [facility] CPT-4: 02186 02/05/2019 ([id number]) OFFICE/OUTPATIENT VISIT EST Diagnosis: Attention and concentration deficit[ICD10: R41.840] Cherri HOLGUIN [facility] CPT-4: 56298 12/13/2018 ([id number]) OFFICE/OUTPATIENT VISIT EST Diagnosis: Laceration without foreign body of left upper arm, sequela[ICD10: S41.112S] Diagnosis: Other fatigue[ICD10: R53.83] Cherri HOLGUIN [facility] CPT-4: 64634 11/27/2018 ([id number]) OFFICE/OUTPATIENT VISIT EST Diagnosis: Gastro-esophageal reflux disease without esophagitis[ICD10: K21.9] Diagnosis: Contracture, 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] Diagnosis: Slow transit constipation[ICD10: K59.01] Cherri HOLGUIN DO [facility] CPT-4: 94347 09/25/2018 ([id number]) OFFICE/OUTPATIENT VISIT EST Diagnosis: Gastro-esophageal reflux disease without esophagitis[ICD10: K21.9] Diagnosis: Muscle weakness (generalized)[ICD10: M62.81] Maxine Pee CHERRI HOLGUIN [employer] [facility] CPT-4: 46287 06/22/2018 ([id number]) OFFICE/OUTPATIENT VISIT EST Diagnosis: Gastro-esophageal reflux disease without esophagitis[ICD10: K21.9] Cherri HOLGUIN DO [facility] CPT-4: 35112 04/06/2018 ([id number]) OFFICE/OUTPATIENT VISIT EST Diagnosis: Gastro-esophageal reflux disease without esophagitis[ICD10: K21.9] Maxine HOLGUIN DO [facility] CPT-4: 57475 03/06/2018 ([id number]) OFFICE/OUTPATIENT VISIT EST Diagnosis: 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] Diagnosis: Gastro-esophageal reflux disease without esophagitis[ICD10: K21.9] Diagnosis: Slow transit constipation[ICD10: K59.01] Diagnosis: Primary insomnia[ICD10: F51.01] Cherri HOLGUIN DO [facility] CPT-4: 24009 02/15/2018 ([id number]) OFFICE/OUTPATIENT VISIT EST Diagnosis: Muscle weakness (generalized)[ICD10: M62.81] Diagnosis: Gastro-esophageal reflux disease without esophagitis[ICD10: K21.9] Cherri HOLGUIN DO [facility] CPT-4: 21453 12/12/2017 ([id number]) OFFICE/OUTPATIENT VISIT EST Diagnosis: Nondisplaced fracture of medial malleolus of left tibia, subsequent encounter for closed fracture with delayed healing[ICD10: S82.55XG] Cherri HOLGUIN DO [facility] CPT-4: 82444 10/10/2017 OFFICE/OUTPATIENT VISIT EST Diagnosis: Acute upper respiratory infection, unspecified[ICD10: J06.9] Maxine HOLGUIN DO [facility] CPT-4: 19336 09/19/2017 ([id number]) OFFICE/OUTPATIENT VISIT EST Diagnosis: Muscle weakness (generalized)[ICD10: M62.81] Diagnosis: Other specified disorders of the skin and subcutaneous tissue[ICD10: L98.8] Cherri HOLGUIN DO [facility] CPT-4: 72294 08/04/2017 ([id number]) OFFICE/OUTPATIENT VISIT EST Diagnosis: Unspecified open wound of abdominal wall, left upper quadrant with penetration into peritoneal cavity, sequela[ICD10: S31.601S] Diagnosis: Muscle weakness (generalized)[ICD10: M62.81] Diagnosis: Personal history of malignant neoplasm of brain[ICD10: Z85.841] Cherri HOLGUIN DO [facility] CPT-4: 72575 07/12/2017 ([id number]) OFFICE/OUTPATIENT VISIT EST Diagnosis: Non-pressure chronic ulcer of skin of other sites with unspecified severity[ICD10: L98.499] Diagnosis: Tinea cruris[ICD10: B35.6] Cherri RUSHING [employer] [facility] CPT-4: 18539 05/30/2017 ([id number]) OFFICE/OUTPATIENT VISIT EST Diagnosis: Cellulitis of abdominal wall[ICD10: L03.311] Diagnosis: Cellulitis of chest wall[ICD10: L03.313] Cherri HOLGUIN DO [facility] CPT-4: 15395 05/02/2017 ([id number]) OFFICE/OUTPATIENT VISIT EST Diagnosis: Cellulitis of chest wall[ICD10: L03.313] Diagnosis: Muscle weakness (generalized)[ICD10: M62.81] Cherri HOLGUIN DO [facility] CPT-4: 50636 02/28/2017 ([id number]) OFFICE/OUTPATIENT VISIT EST Diagnosis: Cellulitis of abdominal wall[ICD10: L03.311] Cherri HOLGUIN DO [facility] CPT-4: 84437 12/06/2016 OFFICE/OUTPATIENT VISIT EST Diagnosis: Cutaneous abscess of abdominal wall[ICD10: L02.211] Diagnosis: Cellulitis of abdominal wall[ICD10: L03.311] Cherri HOLGUIN DO [facility] CPT-4: 61925 12/02/2016 ([id number]) OFFICE/OUTPATIENT VISIT EST Diagnosis: Cellulitis of abdominal wall[ICD10: L03.311] Diagnosis: Cutaneous abscess of abdominal wall[ICD10: L02.211] Cherri HOLGUIN DO [facility] CPT-4: 61573 12/01/2016 ([id number]) OFFICE/OUTPATIENT VISIT EST Diagnosis: Cutaneous abscess of abdominal wall[ICD10: L02.211] Diagnosis: Cellulitis of abdominal wall[ICD10: L03.311] Cherri HOLGUIN [facility] CPT-4: 99795 11/30/2016 ([id number]) OFFICE/OUTPATIENT VISIT EST Diagnosis: Muscle weakness (generalized)[ICD10: M62.81] Diagnosis: Slow transit constipation[ICD10: K59.01] Diagnosis: 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 0[facility] 05/11/2016 ([id number]) OFFICE/OUTPATIENT VISIT EST Diagnosis: Muscle weakness (generalized)[ICD10: M62.81] Diagnosis: Abnormal weight loss[ICD10: R63.4] [facility] 62956 12/23/2015 ([id number]) OFFICE/OUTPATIENT VISIT EST Diagnosis: Torticollis[ICD10: M43.6] Diagnosis: Cervicalgia[ICD10: M54.2] Diagnosis: Basal cell carcinoma of skin, unspecified[ICD10: C44.91] [facility] 53498 09/23/2015 ([id number]) OFFICE/OUTPATIENT VISIT EST Diagnosis: Constipation[ICD9: 564.00] Diagnosis: MUSCLE WEAKNESS-GENERAL[ICD9: 728.87] Cherri HOLGUIN [facility] CPT-4: 47132 04/15/2015 ([id number]) OFFICE/OUTPATIENT VISIT EST Diagnosis: MALAISE AND FATIGUE[ICD9: 780.79] Diagnosis: 3RD DEGREE BURN[ICD9: 949.3] Cherri HOLGUIN [facility] CPT-4: 89464 01/14/2015 ([id number]) OFFICE/OUTPATIENT VISIT EST Diagnosis: Constipation[ICD9: 564.00] Diagnosis: MUSCLE WEAKNESS-GENERAL[ICD9: 728.87] Diagnosis: 3RD DEGREE BURN[ICD9: 949.3] Cherri JOHNSTONLINE [employer] PERNELL [facility] CPT-4: 85494 10/29/2014 ([id number]) OFFICE/OUTPATIENT VISIT EST Diagnosis: Weakness generalized[ICD9: 780.79] Diagnosis: 3RD DEGREE BURN[ICD9: 949.3] Cherri JOHNSTONLINE [employer] PERNELL [facility] CPT-4: 53773 08/20/2014 ([id number]) OFFICE/OUTPATIENT VISIT EST Diagnosis: 3RD DEGREE BURN[ICD9: 949.3] Diagnosis: DYSPHAGIA NEC[ICD9: 787.29] Cherri SANCHEZQUELINE Martha Partida X[facility] CPT-4: 25142 06/04/2014 ([id number]) OFFICE/OUTPATIENT VISIT EST Diagnosis: 3RD DEGREE BURN[ICD9: 949.3] Diagnosis: Complication of skin graft[ICD9: 996.52] Diagnosis: TOBACCO USE DISORDER[ICD9: 305.1] Cherri Mianrl Franklin [employer] [facility]NELL [facility] CPT-4: 33472 05/06/2014 ([id number]) OFFICE/OUTPATIENT VISIT EST Diagnosis: CELLULITIS[ICD9: 682.9] Cherri Pappasrl CHERRI [employer] LAWSON NANNETTE [facility] CPT-4: 47124 08/07/2013 ([id number]) OFFICE/OUTPATIENT VISIT EST Diagnosis: MUSCLE WEAKNESS-GENERAL[ICD9: 728.87] Diagnosis: MALAISE AND FATIGUE[ICD9: 780.79] Diagnosis: ABNORMALITY OF GAIT[ICD9: 781.2] Cherri HOLGUIN DO [facility] CPT-4: 23255 05/23/2013 ([id number]) OFFICE/OUTPATIENT VISIT EST Diagnosis: MALAISE AND FATIGUE[ICD9: 780.79] Diagnosis: MUSCLE WEAKNESS-GENERAL[ICD9: 728.87] Diagnosis: HEMIPLEGIANOS SIDE NOS[ICD9: 342.90] Diagnosis: 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] Cherri HOLGUIN [facility] CPT-4: 69232 04/25/2013 ([id number]) OFFICE/OUTPATIENT VISIT EST Diagnosis: MUSCLE WEAKNESS-GENERAL[ICD9: 728.87] Diagnosis: ABNORMALITY OF GAIT[ICD9: 781.2] Diagnosis: MALAISE AND FATIGUE[ICD9: 780.79] Cherri HOLGUIN [facility] CPT-4: 88308 01/22/2013 OFFICE/OUTPATIENT VISIT EST Diagnosis: MALAISE AND FATIGUE[ICD9: 780.79] Diagnosis: MUSCLE WEAKNESS-GENERAL[ICD9: 728.87] Diagnosis: HEMIPLEGIANOS SIDE NOS[ICD9: 342.90] Diagnosis: ABNORMALITY OF GAIT[ICD9: 781.2] Cherri HOLGUIN [facility] CPT-4: 92097 10/18/2012 OFFICE/OUTPATIENT VISIT EST Diagnosis: ABNORMALITY OF GAIT[ICD9: 781.2] Diagnosis: MALAISE AND FATIGUE[ICD9: 780.79] Diagnosis: MUSCLE WEAKNESS-GENERAL[ICD9: 728.87] Cherri HOLGUIN [facility] CPT-4: 64306 09/25/2012 OFFICE/OUTPATIENT VISIT EST Diagnosis: CERVICALGIA[ICD9: 723.1] Diagnosis: ABNORMALITY OF GAIT[ICD9: 781.2] Diagnosis: MUSCLE WEAKNESS-GENERAL[ICD9: 728.87] Cherri HOLGUIN DO [facility] CPT-4: 08831 08/24/2012 ([id number]) OFFICE/OUTPATIENT VISIT EST Diagnosis: URINARY TRACT INFECTION[ICD9: 599.0] Diagnosis: Altered mental state[ICD9: 780.97] Diagnosis: MUSCLE WEAKNESS-GENERAL[ICD9: 728.87] Diagnosis: HEMIPLEGIANOS SIDE NOS[ICD9: 342.90] Diagnosis: Cervicalgia[ICD9: 723.1] Cherri CARIAS [facility] CPT-4: 15748 07/27/2012 OFFICE/OUTPATIENT VISIT EST Diagnosis: URINARY TRACT INFECTION[ICD9: 599.0] Diagnosis: Weakness generalized[ICD9: 780.79] Diagnosis: FEBRILE ILLNESS[ICD9: 780.60] Diagnosis: Vision disturbance[ICD9: 368.9] Tasneem HOLGUIN [facility] CPT-4: 98158 07/05/2012 OFFICE/OUTPATIENT VISIT EST Diagnosis: CONJUNCTIVITIS NOS[ICD9: 372.30] Diagnosis: MUSCLE WEAKNESS-GENERAL[ICD9: 728.87] Diagnosis: HEMIPLEGIANOS SIDE NOS[ICD9: 342.90] Diagnosis: ABNORMALITY OF GAIT[ICD9: 781.2] [facility] 45072 05/29/2012 ([id number]) OFFICE/OUTPATIENT VISIT EST Diagnosis: MUSCLE WEAKNESS-GENERAL[ICD9: 728.87] Diagnosis: HEMIPLEGIANOS SIDE NOS[ICD9: 342.90] Diagnosis: ABNORMALITY OF GAIT[ICD9: 781.2] Diagnosis: DYSPEPSIA[ICD9: 536.8] Diagnosis: GERD[ICD9: 530.81] Cherri HOLGUIN [employer] [facility] CPT-4: 36046 02/02/2012 ([id number]) OFFICE/OUTPATIENT VISIT EST Diagnosis: MUSCLE WEAKNESS-GENERAL[ICD9: 728.87] Diagnosis: ABNORMALITY OF GAIT[ICD9: 781.2] Diagnosis: GERD[ICD9: 530.81] Cherri HOLGUIN [employer] [facility] CPT-4: 01380 11/03/2011 OFFICE/OUTPATIENT VISIT EST Diagnosis: MUSCLE WEAKNESS-GENERAL[ICD9: 728.87] Diagnosis: ABNORMALITY OF GAIT[ICD9: 781.2] Diagnosis: VOMITING ALONE[ICD9: 787.03] Diagnosis: GERD[ICD9: 530.81] Cherri HOLGUIN [facility] CPT-4: 41080 08/25/2011 OFFICE/OUTPATIENT VISIT EST Diagnosis: CONJUNCTIVITIS NOS[ICD9: 372.30] Cherri HOLGUIN DO [facility] CPT-4: 32849 05/27/2011 OFFICE/OUTPATIENT VISIT EST Diagnosis: MUSCLE WEAKNESS-GENERAL[ICD9: 728.87] Diagnosis: ABNORMALITY OF GAIT[ICD9: 781.2] Cherri HOLGUIN DO [facility] CPT-4: 82122 04/15/2011 OFFICE/OUTPATIENT VISIT EST Diagnosis: MALAISE AND FATIGUE[ICD9: 780.79] Diagnosis: MUSCLE WEAKNESS-GENERAL[ICD9: 728.87] Diagnosis: DEPRESSIVE DISORDER NEC[ICD9: 311] Diagnosis: ABNORMALITY OF GAIT[ICD9: 781.2] Cherri HOLGUIN DO [facility] CPT-4: 72069 03/22/2011 OFFICE/OUTPATIENT VISIT EST Cherri DORANTES DO [facility] CPT- 4: 46585 02/22/2011 ([id number]) OFFICE/OUTPATIENT VISIT EST Cherri HOLGUIN DO [facility] CPT-4: 59960 01/26/2011 ([id number]) OFFICE/OUTPATIENT VISIT, EST Cherri HOLGUIN DO [facility] CPT-4: 44170 06/15/2010 ([id number]) OFFICE/OUTPATIENT VISIT, EST Cherri HOLGUIN DO [facility] CPT-4: 35440 05/04/2010 ([id number]) OFFICE/OUTPATIENT VISIT, EST Cherri HOLGUIN DO [facility] CPT-4: 29894 03/03/2010 ([id number]) OFFICE/OUTPATIENT VISIT, EST Cherri HOLGUIN DO [facility] CPT-4: 15172 10/20/2009 Plan of Care Planned Activity Notes Codes Status Date Visit 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 FOLLOW UP 06/25/2019 [...] ICD-10 : R63.4 02/05/2019 Appointment: Cherri Holguintel: [address] [place], [place] [phone] [place] Confirmed with Nara Hankins 02/02 @ 11:07 am FOL LOW UP 02/05/2019 Appointment: Cherri Holguintel: [address] [place], [place] [phone] [place] NO SHOW 01/24/2019 Visit Diagnosis Plan: Attention and concentration defi cit Discussion: Trial of strattera 10mg daily for 1 week then 25mg daily Recheck 6 weeks Stimulants have caused weight loss in past as patient is also poor, picky eater so with the stimulants her appetite worsens even more ICD-9 : 799.51 ICD-10 : R41.840 12/13/2018 Appointment: Cherri Holguintel: [address] [place], [place] [phone] [place] confirmed with Morena FOLLOW UP 12/13/2018 [...] : R53.83 11/27/2018 Appointment: Cher[facility] [phone] [facility] [place] confirmed with Karlee FOLLOW UP 11/27/2018 Visit Diagnosis Plan: Contracture, left hand Discussio n: Left arm in anh on wheelchair Follow Up: 2 months ICD-9 : 718.44 ICD-10 : M24.542 09/25/2018 Visit Diagnosis Plan: Gastro-esophageal reflux disease without esophagitis Discussion: Stable on current meds ICD-9 : 530.81 ICD-10 : K21.9 09/25/2018 Visit Diagnosis Plan: Slow transit constipation Discus benito: Scheduled for colonoscopy on Tuesday ICD-9 : 564.01 ICD-10 : K59.01 09/25/2018 Appointment: Cher[facility]el[facility] [phone] [facility] [place] FOLLOW UP 09/25/2018 Visit Diagnosis Plan: Encounter for gene [facility] adult medical examination with abnormal findings [...] ICD-10 : Z12.11 08/03/2018 Visit Diagnosis Plan: Disorder of the skin [...] : Z12.39 08/03/2018 Appointment: Maxine Glasgow [address] [facility] Annual Well Visit 08/03/2018 Visit Diagnosis Plan: [...] : K21.9 06/22/2018 Appointment: Maxine Glasgow [address] [facility] H & P 06/22/2018 Visit Diagnosis Plan: Gastro-esophageal reflux disease without esophagitis Discussion: Continue aciphex at 20m po daily Recheck 2mos ICD-9 : 530.81 ICD-10 : K21.9 04/06/2018 Appointment: Cherri Holguin WPtel: [address] [place] [address] FOLLOW UP 04/06/2018 Patient Education: Patient Medication Summary Completed 04/06/2018 Appointment: Cherri Holguin WPtel: [address] [place] [address] RESCHEDULED 03/07/2018 Visit Diagnosis Plan: Gastro-esophageal reflux disease without esophagitis Discussion: patient had aciphex and prevacid on med list. order written out on patient's list to only give the aciphex as prescribed and not both. follow up in one month to assess medication efficacy and constipation. ICD-9 : 530.81 ICD-10 : K21.9 03/06/2018 Appointment: Maxine Glasgow [address] [facility] FOLLOW UP 03/06/2018 Patient Education: Patient Medication Summary Completed 03/06/2018 Visit Diagnosis Plan: Slow transit constipation Discus benito: DC miralax Increase senokot-S to 2 po q HS Follow Up: 2 months ICD-9 : 564.01 ICD-10 : K59.01 02/15/2018 Visit Diagnosis Plan: Mood disorder due to known physiological condition with depressive features Discussion: Affect seems improved with latisha matias ICD-9 : 311 ICD-10 : F06.31 02/15/2018 Visit Diagnosis Plan: Gastro-esophageal reflux disease without esophagitis Discussion: Increase prevacid to 30mg po q HS ICD-9 : 530.81 ICD-10 : K21.9 02/15/2018 Visit Diagnosis Plan: Primary insomnia Discussion: Add elavil 10mg po q HS Sister to let us know in 2 weeks if helping ICD-9 : 780.52 ICD-10 : F51.01 02/15/2018 Appointment: Cherri Holguin WPtel: [address] [place], [place] [phone] [place] FOLLOW UP 02/15/2018 Patient Education: Patient Medication Summary Completed 02/15/2018 Appointment: Cherri Holguin WPtel: [address] [place], [place] [phone] transportation called, stating that the patient is still eating lunch, and will not be able to make her appointment.She is rescheduled for Tuesday ~sp NO SHOW 02/13/2018 Visit Diagnosis Plan: Muscle weakness (generalized) Di scussion: Patient asked for PT but PT has not been beneficial in past as the patient makes no progress so the therapies are DCed ICD-9 : 728.87 ICD-10 : M62.81 12/12/2017 Visit Diagnosis Plan: Gastro-esophageal reflux disease without esophagitis Discussion: Stable as long as takes prevacid Follow Up: 2 months ICD-9 : 530.81 ICD-10 : K21.9 12/12/2017 Appointment: Cherri Holguin WPtel: [facility] [place] FOLLOW UP 12/12/2017 Patient Education: Patient Medication Summary Completed 12/12/2017 Visit Diagnosis Plan: Nondisplaced fract ure of medial malleolus of left tibia, subsequent encounter for closed fracture with delayed healing Discussion: Add miacalcin nasal spray for next 2mos Fwup with ortho Follow Up: 2 months ICD-9 : V54.16 ICD-10 : S82.55XG 10/10/2017 Appointment: Cherri Holguin WPtel: [address] [place] [address] [place] FOLLOW UP 10/10/2017 Patient Education: Patient Medication Summary Completed 10/10/2017 Appointment: Cherri Holguin WPtel: [address] [place] [address] [place] RESCHEDULED 10/04/2017 Referral: Alvarado Mercado WPtel: [address] [address] [place] Referral Initiated 10/04/2017 Visit Diagnosis Plan: Acute upper respiratory infectio n, unspecified Discussion: continue with tessalon perles as needed. increase fluids. notify if worsening symptoms including shortness of breath or fever. call or rtc later this week if no improvement. instructed patient to perform deep breathing exercises at home. ICD-9 : 465.9 ICD-10 : J06.9 09/19/2017 Appointment: Maxine Glasgow [address] [place] [address] ACUTE ILLNESS 09/19/2017 Patient Education: Patient Medication Summary Completed 09/19/2017 Appointment: Cherri Holguin WPtel: [address] [place] [address] [place] CANCELED 08/16/2017 Visit Diagnosis Plan: Muscle [...] : L98.8 08/04/2017 Appointment: Cherri Holguin WPtel: [address] [place], [place] [phone] [place] FOLLOW UP 08/04/2017 Patient Education: Patient Medication Summary Completed 08/04/2017 Visit Diagnosis Plan: Muscle weakness (generalized) Di scussion: Retry low dose adderall Follow Up: 1 months ICD-9 : 728.87 ICD-10 : M62.81 07/12/2017 Visit Diagnosis Plan: Personal history of malignant ne oplasm of brain Discussion: Hospice consult ICD-9 : V10.85 ICD-10 : Z85.841 07/12/2017 Visit Diagnosis Plan: Unspecified open w ound of abdominal wall, left upper quadrant with penetration into peritoneal cavity, sequela Discussion: Getting scan tomorrow to look for fistula ICD-9 : 906.0 ICD-10 : S31.601S 07/12/2017 Appointment: Cherri Holguin WPtel: [address] [place] [address] Follow Up 07/12/2017 Patient Education: Patient Medication [...] : B35.6 05/30/2017 Appointment: Cherri Holguin WPtel: [address] [place] [address] FOLLOW UP 05/30/2017 Patient Education: Patient Medication Summary Completed 05/30/2017 Visit Diagnosis Plan: Cellulitis of abdominal wall Dis cussion: Finish keflex Referral to wound care ICD-9 : 682.2 ICD-10 : L03.311 05/02/2017 Appointment: Cherri Holguin WPtel: [address] [place] [address] [place] FOLLOW UP 05/02/2017 Patient Education: Patient Medication Summary Completed 05/02/2017 Referral: Remigio Valdes WPtel: [address] [place], [place] [phone] [place] Referral Initiated 04/05/2017 Visit Diagnosis Plan: Muscle weakness (generalized) Di scussion: Stable Follow Up: 2 months ICD-9 : 728.87 ICD-10 : M62.81 02/28/2017 Visit Diagnosis Plan: Cellulitis of chest wall Discuss ion: Keflex x1 week Continue daily dressing changes ICD-9 : 682.2 ICD-10 : L03.313 02/28/2017 Appointment: Cherri Holguintel: [facility] 02/24 confirmed~sl FOLLOW UP 02/28/2017 Patient Education: Patient Medication Summary Completed 02/28/2017 Visit Diagnosis Plan: Cellulitis of abdominal wall Dis cussion: Healing and improving so will finish all of clindamycin and monitor wounds for any worsening or recurrence ICD-9 : 682.2 ICD-10 : L03.311 12/06/2016 Appointment: Cherri Holguintel: [address] [place] [address] WORK IN 12/06/2016 Patient Education: Patient Medication Summary Completed 12/06/2016 Visit Diagnosis Plan: Cutaneous abscess of abdominal w all Discussion: Continue clindamycin and dressing changes To ER this weekend if worsens Fwup with me in 4 days for recheck ICD-9 : 682.2 ICD-10 : L02.211 12/02/2016 Appointment: Cherri Holguintel[facility] [phone] [facility] FOLLOW UP 12/02/2016 Patient Education: Patient Medication [...] : L02.211 12/01/2016 Appointment: Cherri Holguin [facility]Ptel[facility] [phone] [facility] [place] WORK IN 12/01/2016 Patient Education: Patient Medication Summary Completed 12/01/2016 Visit Diagnosis Plan: Cutaneous abscess of abdominal w all Discussion: Copious amounts of pus expressed until bloody discharge Start clindamycin Recheck tomorrow Erythema outline marked Follow Up: 1 days ICD-9 : 682.2 ICD-10 : L02.211 11/30/2016 Appointment: Cherri Holguin WPtel: [address] [place], [place] [phone] 11/29 confirmed`sl FOLLOW UP 11/30/2016 Patient Education: Patient Medication Summary Completed 11/30/2016 Appointment: Cherri Holguin WPtel: [address] [place], [place] [phone] 11/10 scalp looks ok will discuss at 11/30 appointment~sl RESCHEDULED 11/11/2016 Visit Diagnosis Plan: 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, sequela Discussion: Patient has CT scan of brain tomorrow and fwup with [facility] on 11/02/16 ICD-9 : 909.3 ICD-10 : T85.09XS 10/26/2016 Visit Diagnosis Plan: Muscle weakness (generalized) Di scussion: Start PT and will also assess for new wheelchair due to truncal and extremity weakness Follow Up: 1 months ICD-9 : 728.87 ICD-10 : M62.81 10/26/2016 Visit Diagnosis Plan: Slow transit constipation Discus benito: Add colace 100mg po BID and increase water intake ICD-9 : 564.01 ICD-10 : K59.01 10/26/2016 Appointment: Cherri Holguin WPtel: [facility] ACUTE ILLNESS 10/26/2016 Patient Education: Patient Medication Summary Completed 10/26/2016 Patient Education: Patient Medication Summary Completed 10/21/2016 Care Plan: CT HEAD/BRAIN W/O DYE LOINC : 91842-7 Pending 10/21/2016 Visit Diagnosis Plan: Other seborrheic dermatitis Disc ussion: Topical ketoconazole shampoo alternating with selsun blue Follow Up: 2 months ICD-9 : 706.3 ICD-10 : L21.8 09/13/2016 Appointment: Cherri Holguin WPtel: [address] [place] [address] 09/09 confirm`sl FOLLOW UP 09/13/2016 Patient Education: Patient Medication Summary Completed 09/13/2016 Appointment: Cherri Holguin WPtel: [address] [place] [address] [place] CANCELED 07/13/2016 Visit Plan: Low-dose CT scan-45 PPD of C hest Check hemoccult Discussed updated CT of head to recheck meningioma Zostavax vaccine Will obtain last colonoscopy results Update lab 07/12/2016 Appointment: Cherri Holguin WPtel: [address] [place] [address] 07/08 confirmed~sl Annual Well Visit 07/12/2016 Patient Education: Patient Medication Summary Completed 07/12/2016 Visit Plan: Gets teeth extracted next mo nth then getting fitted for dentures so some of poor appetite is due to inability to eat certain things Continue current meds Defers flu shot 05/11/2016 Appointment: Cherri Holguin WPtel: [address] [place] [address] 05/10 confirmed~sl FOLLOW UP 05/11/2016 Patient Education: Patient Medication Summary Completed 05/11/2016 Visit Plan: Discussed nutrition and poss ible shakes as supplement until gets teeth completely pulled and fitted for full dentures Continue current meds Did have right scalp lesion removed 12/23/2015 Appointment: Cherri Holguin WPtel: [address] [place] [address] 12/21 confirmed-sp FOLLOW UP 12/23/2015 Patient Education: Patient Medication Summary Completed 12/23/2015 Referral: Tabitha Messer WPtel: [facility] [address] [address] [place] Spoke with Kayli at [facility] and gave her appt information Initiated 10/07/2015 Visit Plan: Start PT for ROM of neck Dis cussed milkshake in place of meal if does not eat at least 20% of meal--patient states she wants to lose weight and does not like the food served there See dermatology for removal of scalp lesion 09/23/2015 Appointment: Cherri Holguin WPtel: [address] [place], [place] [address] 09/22/15 appt confirmed with Amber at [facility] cn FOLLOW UP 09/23/2015 Patient Education: Patient Medication Summary Completed 09/23/2015 Visit Plan: Stop miralax and senokot-s S tart dulcolax daily Patient asking for PT and OT again but admits they don't really help/she doesn't gain much from them 04/15/2015 Appointment: Cherri Holguin WPtel: [address] [place] [address] 04/11 confirmed with [facility] cn FOLLOW UP 04/15/2015 Patient Education: Patient Medication Summary Completed 04/15/2015 Visit Plan: Check CBC, CMP, TSH, free T4 , Vit D Continue current meds 01/14/2015 Appointment: Cherri Holguin WPtel: [address] [place] [address] ACUTE ILLNESS 01/14/2015 Patient Education: Patient Medication Summary Completed 01/14/2015 Visit Plan: Change to Senokot-S 2 po BID Add miralax Has been released by burn center for now 10/29/2014 Appointment: Cherri Holguin WPtel: [address] [place], [place] [phone] 10/28 with Madiha FOLLOW UP 10/29/2014 Patient Education: Patient Medication Summary Completed 10/29/2014 Visit Plan: Patient is wheelchair bound now Continue current meds Patient following with [facility] end of 08/20/2014 Appointment: Cherri Holguin WPtel: [address] [place], [place] [phone] MLP rescheduled due to cold weather 08/19 message with Madiha at [facility] FOLLOW U P 08/20/2014 Patient [...] in [place] 06/04/2014 Appointment: Cherri Holguin WPtel: [address] [place], [place] [phone] FOLLOW UP 06/04/2014 Patient Education: Patient Medication Summary Completed 06/04/2014 Visit Plan: Patient sees burn center nex t week Explained importance of taking nutren routinely as needs nutrition Increase prilosec to 20mg po BID Smoking Cessation 05/06/2014 Appointment: Cherri Holguin WPtel: [address] [place], [place] [phone] 05/03 vm on patient phone 05/03 message with Maria L at [facility] Follow Up 05/06/2014 Patient Education: Patient Medication Summary Completed 05/06/2014 Visit Plan: Finish abx Brian wrap to left LE and elevate 08/07/2013 Appointment: Cehrri Holguin WPtel: [address] [place], [place] [id number] Urgent/Quick Care Follow Up 07/10 Patient Education: Patient Medication Summary Completed 08/07/2013 Appointment: Cherri Holguin WPtel: [address] [place], [place] [id number] 07/18 appointment confirmed with patient 07/19 NO SHOW FOLLOW UP 07/19/2013 Visit Plan: Continue current meds Contin ue PT 05/23/2013 Appointment: Cherri Holguin WPtel: [address] [place] [id number] 05/22 vm...appt confirmed FOLLOW UP 2012 Patient Education: Patient Medication Summary Completed 05/23/2013 Visit Plan: Long discussion about need f or 24hr care Pt wants to go home 04/25/2013 Appointment: Cherri Holguintel: [address] [place], [place] [phone] Appt confirmed with Augusto at [facility] Follow Up 04/25/2013 Patient Education: Patient Medication Summary Completed 04/25/2013 Appointment: Cherri Holguin WPtel: [address] [place], [place] [id number] 04/20 message left at [facility] FOLLOW UP 04/23/2013 Visit Plan: Continue current meds 01/22/2013 Appointment: Cherri Holguin WPtel: [address] [place], [place] [id number] 01/22 vm left FOLLOW UP 01/22/2013 Patient Education: Patient Medication Summary Completed 01/22/2013 [facility]ment: [facility] [phone] [facility] 11/20 left message...patient called in a t 10:00am and said she was unable to get to her car. She rescheduled for 11/27 11am 11/24 left message 11/29 called to confirm, patient cancell ed due to no ride from [facility]. [facility] can bring her and then call us to schedule FOLLOW UP 11/30/2012 Visit Plan: Going to go home at the end of week with caregiver Continue current meds 10/18/2012 Appointment: [facility] [phone] [facility] 10/17 appt confirmed with Reyna FOLLOW UP 10/18/2012 Patient Education: Patient Medication Summary Completed 10/18/2012 Visit Plan: Continue and finish PT Sultana devorahe current meds Fwup October 19 or --pts 100 days is up October 21 09/25/2012 Appointment: Cherri Holguin WPtel: [address] [place], [place] [id number] [place] worked in since long term just droppe d her off. She was on shedule at one point but showed it was cancelled WORK IN Appointment: Cherri Holguin WPtel: [address] [place], [place] [phone] 07/17 Cancelled 09/25 Appt - Patient has appointments on 07/08 & 07/27 FOLLOW UP 09/25/2012 Patient Education: Patient Medication Summary Completed 09/25/2012 Visit Plan: Continue current meds Pt wan ts to go home when her 100 days are up 08/24/2012 Appointment: Cherri Holguin WPtel: [address] [place], [place] [phone] FOLLOW UP 08/24/2012 Patient Education: Patient Medication Summary Completed 08/24/2012 Visit Plan: DC tramadol Repeat UA and ch edu UDS Start PT for neck Discussed neurology eval, but pt has been to several in past and even [facility] 07/27/2012 Appointment: Cherri Holguin WPtel: [address] [place], [place] [phone] FOLLOW UP 07/27/2012 Patient Education: Patient Medication Summary Completed 07/27/2012 Appointment: Cherri Holguin WPtel: [address] [place] [id number] 07/17 - left message..07/17 left message with Antonella at [facility] pt has appt tomorrow and on I think the 07/18 appt was scheduled prior to hospitalization. 07/18 no showed. just entered long term so no show is forgiven FOLLOW UP 07/18/2012 Appointment: Tasneem Esquivel WPtel: [address] [place], [place] [phone] ACUTE ILLNESS 07/05/2012 Patient Education: Patient Medication Summary Completed 07/05/2012 Appointment: Cherri Holguin WPtel: [phone] FOLLOW UP 05/29/2012 Patient Education: Patient Medication Summary Completed 05/29/2012 Appointment: Cherri Holguin WPtel: [address] [place] [address] FOLLOW UP 02/02/2012 Patient Education: Patient Medication Summary Completed 02/02/2012 Visit Plan: Continue current meds Check CBC, CMP, TSH, Free T4, B12 11/03/2011 Appointment: Cherri Holguin WPtel: [address] [place] [address] FOLLOW UP 11/03/2011 Patient Education: Patient Medication Summary Completed 11/03/2011 Visit Plan: Adderall refilled Continue c urrent meds 08/25/2011 Appointment: Cherri Holguin WPtel: [address] [place] [address] FOLLOW UP 08/25/2011 Patient Education: Patient Medication Summary Completed 08/25/2011 Appointment: Cherri Holguin WPtel: [address] [place] [address] Appointment was confirmed. FOLLOW UP 08/16 Visit Plan: Esther is eye doctor. Will u se eye drop.(Cipro as she claims allergy (nausea). Pt. is accompanied by "grounds keepers" from [facility]. Written instructions given for pt. to be seen in follow up by Esther. Written RX also given to pt. for cipro eye drops. [facility] is [facility] 05/27/2011 Appointment: Tasneem Esquivel WPtel: [address] [place] [address] ACUTE ILLNESS 05/27/2011 Patient Education: Patient Medication Summary Completed 05/27/2011 Visit Plan: Continue increased dose of A dderall 04/15/2011 Appointment: Cherri Holguin WPtel: [address] [place] [address] FOLLOW UP 04/15/2011 Patient Education: Patient Medication Summary Completed 04/15/2011 Appointment: Cherri Holguin WPtel: [address] [place], [place] [address] FOLLOW UP 03/22/2011 Patient Education: Patient Medication Summary Completed 03/22/2011 Appointment: Cherri Holguin WPtel: [address] [place], [place] [phone] FOLLOW UP 02/25/2011 Visit Plan: Trial of Wellbutrin XL 150mg q AM 02/22/2011 Appointment: Cherri Holguin WPtel: [address] [place] [place] [phone] FOLLOW UP 02/22/2011 Patient Education: Patient Medication Summary Completed 02/22/2011 Visit Plan: Continue PT Add Cymbalta 30m g daily 01/26/2011 Appointment: Cherri Holguin WPtel: [address] [place], [place] [address] FOLLOW UP 01/26/2011 Patient Education: Patient Medication Summary Completed 01/26/2011 Visit Plan: Cont current meds and PT Exa m for Power chair completed Adderall rx refilled 06/15/2010 Appointment: Cherri Holguin WPtel: [address] [place], [place] [phone] ESTABLISHED PATIENT 06/15/2010 Patient Education: Patient Medication Summary Completed 06/15/2010 Visit Plan: To rehab today for PT/OT--I will follow on rehab unit 05/04/2010 Appointment: Cherri Holguin WPtel: [address] [place], [place] [phone] FOLLOW UP 05/04/2010 Patient Education: Patient Medication Summary Completed 05/04/2010 Visit Plan: Cont PT Cont Forteo Long dis cussion about living home--will discuss with PT when finishes this session 03/03/2010 Appointment: Cherri Holguin WPtel: [address] [place], [place] [phone] FOLLOW UP 03/03/2010 Patient Education: Patient Medication Summary Completed 03/03/2010 Visit Plan: EGD by Dr. Dang Pt agrees to restart Forteo 10/20/2009 Appointment: Cherri Holguin WPtel: [phone] [id number] FOLLOW UP 10/20/2009 Patient Education: Patient Medication Summary Completed 10/20/2009 Referral: Antonio Gandhi WPtel: [phone] [id number] [place] Referral Initiated Instructions Comment . Low-dose [...] meds Patient following with [facility] at [facility] end of October . Patient is eating [...] several in past and even [facility] . Continue current meds Check CBC, CMP, TSH, Free T4, B12 . Adderall refilled Continue current meds . 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 Will use eye bj p.(Cipro as she claims allergy (nausea). Pt. is accompanied by "grounds keepers" from [facility]. Written instructions given for pt. to be [...]
--- OUTSIDE RECORDS SUMMARY | 2020-03-05 20:52 | XMS REPORT | CCD ---
Author Author Rosario Holguin D.O. Organization [facility] Address [address] [place] [address] Phone Care Team Providers Care Network Planner Name Role Phone Cherri Holguin D.O., PP Unavailable CCM Unavailable Summary Purpose Interface Exchange Insurance Providers Payer name Policy type / Coverage type Covered democrat ID Effective Begin Date Effective End Date WPS MEDICARE PART B [place] Medicare Part B [id number] Unknown AARP Medicare Part B [id number] Unknown Family History Family History data not found Social History Social History Element Codes Description Effective Dates Tobacco history SNOMED CT: 4577049 Former smoker 04/15/2015 Allergies, Adverse Reactions, Alerts [...] B-12) 1,000 mcg/mL injection solution Rx Norm: 503940 1 Milliliter(s) Intramuscular every 2 weeks 06/26/2019 09/24/2019 Inacti ve cyanocobalamin (vit B-12) 1,000 mcg/mL injection solution Rx Norm: 415194 1 Milliliter(s) Intramuscular every 2 weeks 06/26/2019 06/25/2019 Inacti ve bisacodyl 10 mg rectal suppository RxNorm: 442995 1 Sup pository Rectal QD as needed 05/10/2019 No Stop Date Active glycerin (adult) rectal suppository RxNorm: 7167735 1 Suppositor y RTL BIW 07/25/2018 10/22/2018 Inactive rabeprazole 20 mg tablet,delayed release RxNorm: 196966 1 Table t(s) PO QD 03/01/2018 05/29/2018 Inactive replaces lansoprazol e Adderall XR 10 mg capsule,extended release RxNorm: 937237 1 Cap teresa(s) PO QAM 10/20/2017 12/19/2017 Inactive Tessalon Perles 100 mg capsule RxNorm: 531924 1 Capsule (s) PO TID as needed for cough 09/16/2017 09/30/2019 Inactive Cymbalta 30 mg capsule,delayed release RxNorm: 940774 1 Capsule (s) PO QD 08/17/2017 No Stop Date Active nystatin 100,000 unit/gram topical powder RxNorm: 253259 1 Appl ication TOP BID 08/16/2017 02/14/2018 Inactive Adderall XR 10 mg capsule,extended release RxNorm: 725506 1 Cap teresa(s) PO QAM 08/11/2017 09/09/2017 Inactive Adderall XR 10 mg capsule,extended release RxNorm: 843996 1 Cap teresa(s) PO QAM 08/04/2017 08/03/2017 Inactive Adderall XR 10 mg capsule,extended release RxNorm: 413613 1 Cap teresa(s) PO QAM 08/04/2017 08/10/2017 Inactive Bactrim DS 800 mg-160 mg tablet RxNorm: 912905 1 Tablet(s) PO BID 1 08/28/2016 07/07/2017 Inactive clindamycin 300 mg capsule RxNorm: 382260 2 Capsule(s) PO TID doses for today and tomorrow 11/30/2016 05/01/2017 Inactive ketoconazole 2 % shampoo RxNorm: 756313 1 Application TOP twice a week 09/14/2016 05/01/2017 Inactive hydrocodone 5 mg-acetaminophen 325 mg tablet RxNorm: 499684 1 Tablet(s) PO Q6H as needed for pain 07/12/2016 05/01/2017 Inactive Cipro 250 mg tablet RxNorm: 232102 1 Tablet(s) PO BID 09/29/201509/09 Inactive cefuroxime axetil 250 mg tablet RxNorm: 661495 1 Tablet(s) PO BID 0 09/10/2015 09/16/2015 Inactive Micro-K 8 mEq capsule,extended release RxNorm: 624708 1 Capsule (s) PO QD 08/20/2015 08/16/2017 Inactive Micro-K 8 mEq capsule,extended release RxNorm: 725826 1 Capsule (s) PO QD 08/20/2015 08/19/2015 Inactive Adderall XR 20 mg capsule,extended release RxNorm: 369465 1 Cap teresa(s) PO QAM 04/30/2015 02/11/2016 Inactive hydroxyzine HCl 25 mg tablet RxNorm: 933875 1 Tablet(s) PO Q6H as needed for itching/hives 04/02/2015 09/12/2016 Inactive Miralax 17 gram oral powder packet RxNorm: 550061 17 Gr am(s) PO BID for constipation 02/26/2015 02/11/2016 Inactive Adderall XR 20 mg capsule,extended release RxNorm: 685152 1 Cap teresa(s) PO QAM 07/09/2014 08/07/2014 Inactive Adderall 20 mg tablet RxNorm: 529335 2 Tablet(s) PO QD 02/04/201408/2013 Inactive [AttnRPh: Saving apply/adjudicate RxGRP: SG20 RxBIN:[id number] RxPCN: ID#:[id number]] triamcinolone acetonide 0.1 % topical cream RxNorm: 3903907 1 Application TOP BID to affected area as needed 12/12/2013 01/13/2015 Inactive [ AttnRPh: Saving apply/adjudicate RxGRP:SG20 RxBIN:[id number] RxPCN:HT ID#:[id number]] Adderall 20 mg tablet RxNorm: 809105 2 Tablet(s) PO QD 12/04/2013 Inactive [AttnRPh: Saving apply/adjudicate RxGRP: SG20 RxBIN:[id number] RxPCN:HT ID#:[id number]] Adderall 20 mg tablet RxNorm: 501163 2 Tablet(s) PO QD 12/03/2013 Inactive [AttnRPh: Saving apply/adjudicate RxGRP: SG20 RxBIN:[id number] RxPCN: ID#:[id number]] Adderall 20 mg tablet RxNorm: 854748 2 Tablet(s) PO QD 11/02/2013 Inactive Adderall 20 mg tablet RxNorm: 012614 2 Tablet(s) PO QD 10/01/2013 Inactive meloxicam 7.5 mg tablet RxNorm: 648275 1 Tablet(s) PO QD 09/24/2013 0 08/19/2014 Inactive lisinopril 20 mg tablet RxNorm: 330362 1 Tablet(s) PO QD 09/24/2013 0 08/19/2014 Inactive Protonix 40 mg tablet,delayed release RxNorm: 770004 1 Tablet(s ) PO QD 09/24/2013 08/19/2014 Inactive Adderall 20 mg tablet RxNorm: 737644 2 Tablet(s) PO QD 08/29/2013 Inactive Adderall 20 mg tablet RxNorm: 916753 2 Tablet(s) PO QD 08/02/2013 Inactive hydroxyzine HCl 25 mg tablet RxNorm: 175516 1 Tablet(s) PO Q6H as needed 06/29/2013 08/19/2014 Inactive Adderall 20 mg tablet RxNorm: 935330 2 Tablet(s) PO QD 05/22/2013 Inactive Protonix 40 mg tablet,delayed release RxNorm: 994420 1 Tablet(s ) PO QD 05/15/2013 09/11/2013 Inactive meloxicam 7.5 mg tablet RxNorm: 727091 1 Tablet(s) PO QD 05/15/2013 0 09/11/2013 Inactive lisinopril 20 mg tablet RxNorm: 293231 1 Tablet(s) PO QD 05/15/2013 0 09/11/2013 Inactive Adderall 20 mg tablet RxNorm: 382783 2 Tablet(s) PO QD 04/02/2013 No Stop Date Active Adderall 20 mg tablet RxNorm: 155347 2 Tablet(s) PO QD 02/27/2013 No Stop Date Active Adderall 20 mg tablet RxNorm: 631049 2 Tablet(s) PO QD 01/22/2013 No Stop Date Active Adderall 20 mg tablet RxNorm: 163181 2 Tablet(s) PO QD 12/28/2012 No Stop Date Active Adderall 20 mg tablet RxNorm: 075114 2 Tablet(s) PO QD 12/01/2012 No Stop Date Active Adderall 20 mg tablet RxNorm: 032130 2 Tablet(s) PO QD 11/01/2012 No Stop Date Active K-Dur 20 mEq tablet,extended release RxNorm: 441854 1 Tablet(s) PO QD 10/19/2012 11/26/2018 Inactive meloxicam 7.5 mg tablet RxNorm: 620603 1 Tablet(s) PO QD 10/19/2012 0 04/16/2013 Inactive Protonix 40 mg tablet,delayed release RxNorm: 979584 1 Tablet(s ) PO QD 10/19/2012 04/16/2013 Inactive lisinopril 20 mg tablet RxNorm: 036809 1 Tablet(s) PO QD 10/19/2012 0 04/16/2013 Inactive Cipro 500 mg tablet RxNorm: 507437 1 Tablet(s) PO BID 07/05/201211/2011 Inactive Adderall XR 20 mg capsule,extended release RxNorm: 027378 2 Cap teresa(s) PO QAM 06/12/2012 07/26/2012 Inactive Adderall XR 20 mg capsule,extended release RxNorm: 242641 2 Cap teresa(s) PO QAM 05/16/2012 06/11/2012 Inactive Adderall XR 20 mg capsule,extended release RxNorm: 369892 2 Cap teresa(s) PO QAM 04/21/2012 05/15/2012 Inactive Adderall XR 20 mg capsule,extended release RxNorm: 150758 2 Cap teresa(s) PO QAM 02/16/2012 03/16/2012 Inactive Enablex 15 mg 24 hr Tab RxNorm: 076548 1 Tablet(s) PO QPM repla mady Vesicare 02/07/2012 05/28/2012 Inactive Enablex 15 mg 24 hr Tab RxNorm: 319621 1 Tablet(s) PO QPM repla mady Vesicare 02/07/2012 08/04/2012 Inactive Protonix 40 mg Tab RxNorm: 895458 1 Tablet(s) PO QD 02/07/20122011 Inactive Protonix 40 mg Tab RxNorm: 582732 1 Tablet(s) PO QD 02/02/20122011 Inactive Enablex 15 mg 24 hr Tab RxNorm: 252152 1 Tablet(s) PO QPM repla mady Vesicare 02/02/2012 02/06/2012 Inactive Adderall XR 20 mg 24 hr Cap RxNorm: 049048 2 Capsule(s) PO QAM 01/0602/15/2012 Inactive Adderall XR 20 mg 24 hr Cap RxNorm: 685344 2 Capsule(s) PO QAM 12/0601/15/2012 Inactive Adderall XR 20 mg 24 hr Cap RxNorm: 823725 2 Capsule(s) PO QAM 11/0612/16/2011 Inactive Adderall XR 20 mg 24 hr Cap RxNorm: 379867 2 Capsule(s) PO QAM 10/0611/17/2011 Inactive Adderall XR 20 mg 24 hr Cap RxNorm: 472862 2 Capsule(s) PO QAM 09/0910/24/2011 Inactive Prevacid 30 mg Cap RxNorm: 995085 1 Capsule(s) PO QD 07/30/201109/27 Inactive Adderall XR 20 mg 24 hr Cap RxNorm: 870241 2 Capsule(s) PO QAM 07/0908/28/2011 Inactive Adderall XR 20 mg 24 hr Cap RxNorm: 783204 2 Capsule(s) PO QAM 06/0807/21/2011 Inactive ciprofloxacin 0.3 % Eye Drops RxNorm: 542252 2 Drop(s) OPH Q2H 05/0905/31/2011 Inactive Adderall XR 20 mg 24 hr Cap RxNorm: 297507 2 Capsule(s) PO QAM 05/08 No Stop Date Active Wellbutrin XL 150 mg 24 hr Tab RxNorm: 693003 1 Tablet(s) PO QAM 04/14/2011 Inactive Vesicare 10 mg Tab RxNorm: 671815 1 Tablet(s) PO QD 12/24/20102011 Inactive Vesicare 10 mg Tab RxNorm: 074659 1 Tablet(s) PO QD 12/21/20102018 Inactive Adderall XR 30 mg 24 hr Cap RxNorm: 477529 1 Capsule(s) PO QD 11/1712/16/2010 Inactive Vesicare 10 mg Tab RxNorm: 979970 1 Tablet(s) PO QD 09/21/20102010 Inactive Adderall XR 30 mg 24 hr Cap RxNorm: 456911 1 Capsule(s) PO 09/17/1910/16/2010 Inactive Adderall XR 30 mg 24 hr Cap RxNorm: 764189 1 Capsule(s) PO QAM 07/0911/26/2018 Inactive Adderall XR 30 mg 24 hr Cap RxNorm: 747613 1 Capsule(s) PO QAM 07/0908/03/2010 Inactive Adderall XR 20 mg 24 hr Cap RxNorm: 719481 2 Capsule(s) PO QD 01/2602/02/2010 Inactive Adderall XR 20 mg 24 hr Cap RxNorm: 904123 1 Capsule(s) PO QD 01/2605/03/2010 Inactive Forteo 20 mcg/dose (600 mcg/2.4 mL) Sub-Q Pen Injector RxNorm: 1 161396 SQ 12/30/2009 01/25/2011 Inactive hyoscyamine 0.125 mg sublingual tablet RxNorm: 9644047 1 Tablet(s) SL Q4H as needed for excessive secretions No Start Date Active Senokot-S 8.6 mg-50 mg tablet RxNorm: 9777071 2 Tablet(s) PO BID No Start Date Active rabeprazole 20 mg tablet,delayed release RxNorm: 223644 1 Table t(s) PO QD No Start Date Active Micro-K 10 10 mEq capsule,extended release RxNorm: 931054 1 Cap teresa(s) PO QD No Start Date Active docusate sodium 100 mg tablet RxNorm: 1182588 1 Tablet(s) PO Q8H as needed No Start Date Active ondansetron HCl 4 mg tablet RxNorm: 196390 1 Tablet(s) PO Q4H a s needed No Start Date Active Vitamin D3 5,000 unit tablet RxNorm: 262421 1 Tablet(s) PO QD No Star t Date Active bisacodyl 5 mg tablet RxNorm: 214381 1 Tablet(s) PO BID as needed N o Start Date Active aspirin 81 mg tablet RxNorm: 024377 1 Tablet(s) PO QD No Start Date Active Multivitamin And Mineral oral RxNorm: oral No Start Date Active Benadryl 1 % topical cream RxNorm: 9850293 TOP as needed for hiv es No Start Date Active K-Dur 20 mEq tablet,extended release RxNorm: 589300 1 Tablet(s) PO QD No Start Date 08/19/2014 Inactive Colace 100 mg capsule RxNorm: 2412709 1 Capsule(s) PO BID No Start Date 01/19/2017 Inactive ketoconazole 2 % shampoo RxNorm: 343038 1 Application TOP twice a week No Start Date 09/13/2016 Inactive ibuprofen 600 mg tablet RxNorm: 744984 1 Tablet(s) PO Q6H as ne eded No Start Date 06/21/2018 Inactive Zaditor 0.025 % Eye Drops RxNorm: 560291 1 Drop(s) OPH BID No Start Date 05/28/2012 Inactive senna 8.6 mg tablet RxNorm: 645396 2 Tablet(s) PO BID No Start Date 0 02/11/2016 Inactive senna 8.6 mg tablet RxNorm: 879554 1 Tablet(s) PO BID No Start Date 0 02/11/2016 Inactive Amoxil 500 mg capsule RxNorm: 180157 1 Capsule(s) PO BID No Start D ate 05/01/2017 Inactive lisinopril 20 mg tablet RxNorm: 084153 1 Tablet(s) PO QD No Start D ate 10/18/2012 Inactive Prevacid 30 mg Capsule, delayed release RxNorm: 486905 1 Capsul e(s) PO QD No Start Date 02/01/2012 Inactive Senokot-S 8.6 mg-50 mg Tab RxNorm: 4863416 2 Tablet(s) PO QD PRN No Start Date 03/02/2010 Inactive Cymbalta 30 mg capsule,delayed release RxNorm: 972353 1 Capsule (s) PO QD No Start Date 08/16/2017 Inactive ketoconazole 2 % topical cream RxNorm: 401716 1 Applica tion TOP BID to scaly eyebrows No Start Date 05/01/2017 Inactive lorazepam 0.5 mg tablet RxNorm: 621490 1 Tablet(s) PO Q4H as ne eded No Start Date 06/21/2018 Inactive Vitamin C 500 mg tablet RxNorm: 390337 1 Tablet(s) PO QD No Start D ate 01/21/2013 Inactive albuterol sulfate 2.5 mg/3 mL (0.083 %) Neb Solution RxNorm: 982522 Milliliter(s) INH 1 vial in nebulizer every 4 hours as needed No Start Date 01/21/2013 Inactive Adderall XR 20 mg 24 hr Cap RxNorm: 731122 1 Capsule(s) PO QAM No S tart Date 01/25/2011 Inactive Xanax 0.25 mg Tab RxNorm: 902880 1/2 Tablet(s) PO BID PRN No Start Date 03/02/2010 Inactive Tylenol Extra Strength 500 mg Tab RxNorm: 617857 2 Tablet(s) PO PRN No Start Date 08/24/2011 Inactive Adderall 20 mg tablet RxNorm: 239580 2 Tablet(s) PO QD No Start Date 10/31/2012 Inactive bisacodyl 5 mg tablet,delayed release RxNorm: 408212 1 Tablet(s) PO Q12H as needed No Start Date 02/04/2019 Inactive Tessalon Perles 100 mg capsule RxNorm: 034413 1 Capsule (s) PO TID as needed for cough No Start Date 09/15/2017 Inactive Vitamin D3 1,000 unit tablet RxNorm: 020527 3 Tablet(s) PO QD No St art Date 02/22/2017 Inactive meloxicam 7.5 mg tablet RxNorm: 009273 1 Tablet(s) PO QD No Start D ate 10/18/2012 Inactive Bactroban 2 % topical ointment RxNorm: 112194 1 Application TOP QD No Start Date 12/11/2017 Inactive Toviaz 8 mg 24 hr Tab RxNorm: 130945 1 Tablet(s) PO QD No Start Date 09/21/2010 Inactive Prevacid 15 mg capsule,delayed release RxNorm: 357579 Capsule(s ) PO QD No Start Date 02/28/2018 Inactive K-Dur 20 mEq tablet,extended release RxNorm: 5705028 1 Tablet(s) PO QD No Start Date 10/18/2012 Inactive Adderall XR 20 mg 24 hr Cap RxNorm: 012106 2 Capsule(s) PO QAM No S tart Date 05/24/2011 Inactive Calcium with Vitamin D 600 mg-400 unit Tab RxNorm: 018698 1 Tab let(s) PO QD No Start Date 08/24/2011 Inactive Miralax 17 gram oral powder packet RxNorm: 242465 17 Gram(s) PO BID as needed No Start Date 11/26/2018 Inactive Zestril 10 mg Tab RxNorm: 429781 1 Tablet(s) PO QD No Start Date 10/06 Inactive baclofen 10 mg tablet RxNorm: 345465 1 Tablet(s) PO QHS No Start Da te 09/11/2015 Inactive Tums 500 Oral RxNorm: Oral No Start Date 01/13/2015 Inactive Senokot-S 8.6 mg-50 mg tablet RxNorm: 3868313 1 Tablet(s) PO BID No Start Date 11/26/2018 Inactive Prozac 10 mg Tab RxNorm: 755528 1 Capsule(s) PO QD No Start Date 10/06 Inactive Elavil 10 mg tablet RxNorm: 076810 1 Tablet(s) PO QHS No Start Date 0 12/12/2018 Inactive Dulcolax Stool Softener (docusate) 100 mg capsule RxNorm: 12 69520 1 Capsule(s) PO Q8H as needed No Start Date 01/19/2017 Inactive Adderall XR 30 mg 24 hr Cap RxNorm: 341790 1 Capsule(s) PO QAM No S tart Date 04/14/2011 Inactive Milk of Magnesia-Cascara 15.25 % oral suspension RxNorm: oral No Start Date 11/26/2018 Inactive Tylenol 325 mg tablet RxNorm: 068490 2 Tablet(s) PO Q4H as needed N o Start Date 11/26/2018 Inactive Prilosec 20 mg capsule,delayed release RxNorm: 146347 1 Capsule (s) PO BID No Start Date 09/08/2014 Inactive Tylenol 8 Hour 650 mg tablet,extended release RxNorm: 097597 0 1 Tablet(s) PO Q4H as needed No Start Date 11/26/2018 Inactive Vitamin D3 2,000 unit tablet RxNorm: 282894 1 Tablet(s) PO QD No St art Date 02/22/2017 Inactive nystatin 100,000 unit/gram topical powder RxNorm: 344215 1 Appl ication TOP BID No Start Date 08/15/2017 Inactive morphine 20 mg/5 mL (4 mg/mL) oral solution RxNorm: 004072 .25 Milliliter(s) PO Q4H as needed No Start Date 09/24/2018 Inactive Forteo 20 mcg/dose (750 mcg/3 mL) Sub-Q Pen Injector RxNorm: 143 5115 SQ QD No Start Date 01/21/2010 Inactive ciprofloxacin 0.3 % Eye Drops RxNorm: 926827 2 Drop(s) OPH TID to affected eye No Start Date 08/23/2012 Inactive bisacodyl 5 mg tablet RxNorm: 347144 1 Tablet(s) PO BID No Start Da te 02/11/2016 Inactive Avosil 2 %-0.2 % topical ointment RxNorm: 1 Appl ication TOP Q8H as needed to burn sites No Start Date 11/26/2018 Inactive Milk of Magnesia 800 mg/5 mL oral suspension RxNorm: 854383 Milliliter(s) PO as needed No Start Date 06/20/2018 Inactive Atarax 25 mg tablet RxNorm: 933976 1 Tablet(s) PO Q4H prn itchi ng/hives No Start Date 08/24/2011 Inactive Adderall XR 30 mg 24 hr Cap RxNorm: 761318 1 Capsule(s) PO QAM No S tart Date 07/26/2010 Inactive Prevacid 30 mg Cap RxNorm: 956293 1 Capsule(s) PO QD No Start Date Inactive Vitamin C 500 mg tablet RxNorm: 705671 1 Tablet(s) PO BID No Start Date 07/11/2016 Inactive Vistaril 25 mg capsule RxNorm: 884770 1 Capsule(s) PO Q4H PRN No St art Date 03/02/2010 Inactive tramadol 50 mg tablet RxNorm: 038839 1 Tablet(s) PO TID as need ed for pain No Start Date 01/21/2013 Inactive Multivitamin & Mineral Formula tablet RxNorm: 1 Tablet(s) PO Q D No Start Date 06/22/2018 Inactive hydrocodone 5 mg-acetaminophen 325 mg tablet RxNorm: 217840 1 Tablet(s) PO Q4H as needed for pain No Start Date 06/24/2019 Inactive Multivitamin & Mineral Formula Oral RxNorm: Oral No Start Da te 03/02/2010 Inactive Miralax 17 gram oral powder packet RxNorm: 048168 17 Gr am(s) PO QPM for constipation No Start Date 02/25/2015 Inactive Percocet 5 mg-325 mg tablet RxNorm: 0913570 1-2 Tablet(s) PO Q4H as needed No Start Date 09/24/2018 Inactive triamcinolone acetonide 0.1 % topical cream RxNorm: 4575499 1 Application TOP TID to affected area as needed No Start Date 12/12/2013 Inactive rabeprazole 20 mg tablet,delayed release RxNorm: 482304 1 Table t(s) PO QD No Start Date 09/24/2018 Inactive Protonix 40 mg tablet,delayed release RxNorm: 713863 1 Tablet(s ) PO QD No Start Date 10/18/2012 Inactive Mobic 7.5 mg Tab RxNorm: 711075 1 Tablet(s) PO BID No Start Date 10/06 Inactive Sinemet CR 50 mg-200 mg Tab RxNorm: 027487 1 Tablet(s) PO QD No Sta rt Date 03/02/2010 Inactive Adderall XR 20 mg 24 hr Cap RxNorm: 366652 2 Capsule(s) PO QD No St art Date 02/02/2010 Inactive Medication Administered No Medication Administered data Immunizations No Immunization data Results Observation Observation Code Item Item Code Result Date S [facility] Location COMPLETE BLOOD COUNT [id number] WBC 7.3 10e9/L 05/29/20 12 Unknown COMPLETE BLOOD COUNT [id number] RBC 5.20 10e12/L 2011 Unknown COMPLETE BLOOD COUNT [id number] HGB 15.3 g/dL 2 Unknown COMPLETE BLOOD COUNT [id number] HCT DET 45.9 % 2 Unknown COMPLETE BLOOD COUNT [id number] MCV 88.3 fL 2 Unknown COMPLETE BLOOD COUNT [id number] MCH 29.4 pg 2 Unknown COMPLETE BLOOD COUNT [id number] MCHC 33.3 g/dL 2 Unknown COMPLETE BLOOD COUNT [id number] PLT 341 10e9/L 05/29/20 12 Unknown COMPLETE BLOOD COUNT [id number] MPV 10.1 fL 2 Unknown COMPLETE BLOOD COUNT [id number] ASHLEY % 63.2 % 2 Unknown COMPLETE BLOOD COUNT [id number] LY % 27.4 % 2 Unknown COMPLETE BLOOD COUNT [id number] MON % 7.6 % 2 Unknown COMPLETE BLOOD COUNT [id number] EOS % 1.5 % 2 Unknown COMPLETE BLOOD COUNT [id number] BASO % 0.3 % 2 Unknown COMPLETE BLOOD COUNT [id number] RDW 13.6 % 2 Unknown COMPLETE BLOOD COUNT [id number] ABS ASHLEY 4.61 10e9/L 012 Unknown COMPLETE BLOOD COUNT [id number] ABS LYMPH 2.00 10e9/L 012 Unknown COMPLETE BLOOD COUNT [id number] ABS MONO 0.55 10e9/L 012 Unknown COMPLETE BLOOD COUNT [id number] ABS EOS 0.11 10e9/L 012 Unknown COMPLETE BLOOD COUNT [id number] ABS BASO 0.02 10e9/L 012 Unknown COMPLETE BLOOD COUNT [id number] RDW-SD 43.5 fL 2 Unknown THYROID STIMULATING HORMONE 80441 TSH 1.487 uIU/ML 05/29/2012 Unknown GFR CALC [id number] GFR AA >60 ML/MIN 05/29/2012 Unknown GFR CALC [id number] GFR NON-AA >60 ML/MIN 05/29/2012 Unknown FREE T4 81119 FREE T4 1.20 NG/DL 05/29/2012 Unknown COMPREHENSIVE METABOLIC 38090 AST 17 U/L 2011 Unknown COMPREHENSIVE METABOLIC 95950 ALT 16 IU/L 2011 Unknown COMPREHENSIVE METABOLIC 36807 BUN 9 MG/DL 2011 Unknown COMPREHENSIVE METABOLIC 02207 ALBUMIN 4.1 GM/DL 2011 Unknown COMPREHENSIVE METABOLIC 14797 CHLORIDE 106 MMOL/L 05/29 Unknown COMPREHENSIVE METABOLIC 28003 BILI TOT 0.4 MG/DL 2011 Unknown COMPREHENSIVE METABOLIC 75697 ALK PHOS 87 U/L 2011 Unknown COMPREHENSIVE METABOLIC 61916 SODIUM 142 MMOL/L 05/29 Unknown COMPREHENSIVE METABOLIC 65777 CREATININE 0.79 MG/DL 05/09 Unknown COMPREHENSIVE METABOLIC 86425 CALCIUM 9.2 MG/DL 2011 Unknown COMPREHENSIVE METABOLIC 42340 POTASSIUM 3.6 MMOL/L 05/29 Unknown COMPREHENSIVE METABOLIC 48649 PROT TOT 6.5 GM/DL 2011 Unknown COMPREHENSIVE METABOLIC 36078 Glucose 78 MG/DL 2011 Unknown COMPREHENSIVE METABOLIC 05976 BICARB 27 MMOL/L 2011 Unknown COMPREHENSIVE METABOLIC 88283 ANION GAP 9 MEQ/L 2011 Unknown Procedures Procedure Codes Date PPPS, subseq visit CPT-4: G0439 08/03/2018 PPPS, subseq visit CPT-4: G0439 07/12/2016 CUR TOBACCO NON-USER CPT-4: G8457 04/15/2015 URINALYSIS NONAUTO W/O SCOPE CPT-4: 42177 07/05/2012 URINE CULTURE/ COLONY COUNT CPT-4: 06171 07/05/2012 PRESCRIP TRANSMIT VIA ERX SY CPT-4: G8553 07/05/2012 ROUTINE VENIPUNCTURE CPT-4: 53823 05/29/2012 ASSAY OF FREE THYROXINE CPT-4: 65083 05/29/2012 ASSAY THYROID STIM HORMONE CPT-4: 32100 05/29/2012 COMPREHEN METABOLIC PANEL CPT-4: 65512 05/29/2012 COMPLETE CBC W/AUTO DIFF WBC CPT-4: 29048 05/29/2012 PRESCRIP TRANSMIT VIA ERX SY CPT-4: G8553 05/29/2012 PRESCRIP TRANSMIT VIA ERX SY CPT-4: G8553 02/02/2012 PRESCRIP TRANSMIT VIA ERX SY CPT-4: G8553 05/27/2011 PRESCRIP TRANSMIT VIA ERX SY CPT-4: G8553 02/22/2011 SERVICE REQUIRED FOR PMD CPT-4: G0372 06/15/2010 ROUTINE VENIPUNCTURE CPT-4: 37560 10/20/2009 Vital Signs Date Vital 10/01/2019 Blood [...] 1: 114/66 Code: 8480-6 BMI: 25.8 Code: 24750-1 Heart Rate 1: 72 bpm Height: 5'2" [...] 1: 122/80 Code: 8480-6 BMI: 24.9 Code: 82977-6 Heart Rate 1: 100 bpm Height: 5'2" Respiratory Rate: 20 bpm Temperature: 37 .1 (C) / 98.8 (F) Weight: 136 lbs 11/03/2011 Blood Pressure 1: 104/60 Code: 8480-6 BMI: 24.1 Code: 75660-9 Heart Rate 1: 88 bpm Height: 5'2" Respiratory Rate: 20 bpm Temperature: 36 .6 (C) / 97.8 (F) Weight: 132 lbs 08/25/2011 Blood Pressure 1: 128/86 Code: 8480-6 BMI: 24.9 Code: 91615-8 Heart Rate 1: 76 bpm Height: 5'2" Respiratory Rate: 20 bpm Temperature: 36 .2 (C) / 97.2 (F) Weight: 136 lbs 05/27/2011 Blood Pressure 1: 130/90 Code: 8480-6 BMI: 25.1 Code: 52862-0 Heart Rate 1: 68 bpm Height: 5'2" [...] 1: 114/70 Code: 8480-6 BMI: 22.9 Code: 23107-6 Heart Rate 1: 92 bpm Height: 5'2" [...] N/V Encounters Encounter Performer Location Codes Date ([id number]) OFFICE/OUTPATIENT VISIT EST 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] Diagnosis: Muscle weakness (generalized)[ICD10: M62.81] [facility] CPT-4: 32084 10/01/2019 ([id number]) OFFICE/OUTPATIENT VISIT EST Diagnosis: Personal history of malignant neoplasm of brain[ICD10: Z85.841] Diagnosis: Muscle weakness (generalized)[ICD10: M62.81] Diagnosis: Hemiplegia, unspecified affecting left dominant side[ICD10: G81.92] Diagnosis: Contracture, 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] [facility]ri [facility]GU[facility] CPT-4: 12710 06/25/2019 ([id number]) OFFICE/OUTPATIENT VISIT EST Diagnosis: Attention and concentration deficit[ICD10: R41.840] Diagnosis: Abnormal weight loss[ICD10: R63.4] [facility] CPT-4: 75398 02/05/2019 ([id number]) OFFICE/OUTPATIENT VISIT EST Diagnosis: Attention and concentration deficit[ICD10: R41.840] Cherri [facility] CPT-4: 14335 12/13/2018 ([id number]) OFFICE/OUTPATIENT VISIT EST Diagnosis: Laceration without foreign body of left upper arm, sequela[ICD10: S41.112S] Diagnosis: Other fatigue[ICD10: R53.83] [facility]ri [facility] CPT-4: 28406 11/27/2018 ([id number]) OFFICE/OUTPATIENT VISIT EST Diagnosis: Gastro-esophageal reflux disease without esophagitis[ICD10: K21.9] Diagnosis: Contracture, 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] Diagnosis: Slow transit constipation[ICD10: K59.01] [facility]ri [facility] CPT-4: 21124 09/25/2018 ([id number]) OFFICE/OUTPATIENT VISIT EST Diagnosis: Gastro-esophageal reflux disease without esophagitis[ICD10: K21.9] Diagnosis: Muscle weakness (generalized)[ICD10: M62.81] Maxine Pee CHERRI HOLGUIN [facility] CPT-4: 13739 06/22/2018 ([id number]) OFFICE/OUTPATIENT VISIT EST Diagnosis: Gastro-esophageal reflux disease without esophagitis[ICD10: K21.9] Cherri HOLGUIN DO [facility] CPT-4: 29848 04/06/2018 ([id number]) OFFICE/OUTPATIENT VISIT EST Diagnosis: Gastro-esophageal reflux disease without esophagitis[ICD10: K21.9] Maxine HOLGUIN DO [facility] CPT-4: 69841 03/06/2018 ([id number]) OFFICE/OUTPATIENT VISIT EST Diagnosis: 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] Diagnosis: Gastro-esophageal reflux disease without esophagitis[ICD10: K21.9] Diagnosis: Slow transit constipation[ICD10: K59.01] Diagnosis: Primary insomnia[ICD10: F51.01] Cherri HOLGUIN DO [facility] CPT-4: 55765 02/15/2018 ([id number]) OFFICE/OUTPATIENT VISIT EST Diagnosis: Muscle weakness (generalized)[ICD10: M62.81] Diagnosis: Gastro-esophageal reflux disease without esophagitis[ICD10: K21.9] Cherri HOLGUIN DO [facility] CPT-4: 50179 12/12/2017 ([id number]) OFFICE/OUTPATIENT VISIT EST Diagnosis: Nondisplaced fracture of medial malleolus of left tibia, subsequent encounter for closed fracture with delayed healing[ICD10: S82.55XG] Cherri HOLGUIN DO [facility] CPT-4: 75217 10/10/2017 OFFICE/OUTPATIENT VISIT EST Diagnosis: Acute upper respiratory infection, unspecified[ICD10: J06.9] Maxine HOLGUIN DO [facility] CPT-4: 28344 09/19/2017 ([id number]) OFFICE/OUTPATIENT VISIT EST Diagnosis: Muscle weakness (generalized)[ICD10: M62.81] Diagnosis: Other specified disorders of the skin and subcutaneous tissue[ICD10: L98.8] Cherri HOLGUIN DO [facility] CPT-4: 58851 08/04/2017 ([id number]) OFFICE/OUTPATIENT VISIT EST Diagnosis: Unspecified open wound of abdominal wall, left upper quadrant with penetration into peritoneal cavity, sequela[ICD10: S31.601S] Diagnosis: Muscle weakness (generalized)[ICD10: M62.81] Diagnosis: Personal history of malignant neoplasm of brain[ICD10: Z85.841] Cherri HOLGUIN DO [facility] CPT-4: 00460 07/12/2017 ([id number]) OFFICE/OUTPATIENT VISIT EST Diagnosis: Non-pressure chronic ulcer of skin of other sites with unspecified severity[ICD10: L98.499] Diagnosis: Tinea cruris[ICD10: B35.6] Cherri RUSHING ALKALINE WATER [facility] CPT-4: 05920 05/30/2017 ([id number]) OFFICE/OUTPATIENT VISIT EST Diagnosis: Cellulitis of abdominal wall[ICD10: L03.311] Diagnosis: Cellulitis of chest wall[ICD10: L03.313] Cherri HOLGUIN DO [facility] CPT-4: 56824 05/02/2017 ([id number]) OFFICE/OUTPATIENT VISIT EST Diagnosis: Cellulitis of chest wall[ICD10: L03.313] Diagnosis: Muscle weakness (generalized)[ICD10: M62.81] Cherri HOLGUIN DO [facility] CPT-4: 66581 02/28/2017 ([id number]) OFFICE/OUTPATIENT VISIT EST Diagnosis: Cellulitis of abdominal wall[ICD10: L03.311] Cherri HOLGUIN DO [facility] CPT-4: 20644 12/06/2016 OFFICE/OUTPATIENT VISIT EST Diagnosis: Cutaneous abscess of abdominal wall[ICD10: L02.211] Diagnosis: Cellulitis of abdominal wall[ICD10: L03.311] Cherri HOLGUIN DO [facility] CPT-4: 65183 12/02/2016 ([id number]) OFFICE/OUTPATIENT VISIT EST Diagnosis: Cellulitis of abdominal wall[ICD10: L03.311] Diagnosis: Cutaneous abscess of abdominal wall[ICD10: L02.211] Cherri HOLGUIN DO [facility] CPT-4: 47258 12/01/2016 ([id number]) OFFICE/OUTPATIENT VISIT EST Diagnosis: Cutaneous abscess of abdominal wall[ICD10: L02.211] Diagnosis: Cellulitis of abdominal wall[ICD10: L03.311] Cherri HOLGUIN [facility] CPT-4: 50138 11/30/2016 ([id number]) OFFICE/OUTPATIENT VISIT EST Diagnosis: Muscle weakness (generalized)[ICD10: M62.81] Diagnosis: Slow transit constipation[ICD10: K59.01] Diagnosis: 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, 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] Cherri HOLGUIN [facility] CPT-4: 11080 10/26/2016 ([id number]) OFFICE/OUTPATIENT VISIT EST Diagnosis: Other seborrheic dermatitis[ICD10: L21.8] Cherri HOLGUIN [facility] CPT-4: 63993 09/13/2016 ([id number]) OFFICE/OUTPATIENT VISIT EST Diagnosis: Contracture, 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] Diagnosis: Nicotine dependence, cigarettes, uncomplicated[ICD10: F17.210] Diagnosis: Hemiplegia, unspecified affecting unspecified side[ICD10: G81.90] Diagnosis: Muscle weakness (generalized)[ICD10: M62.81] [facility] 40599 05/11/2016 ([id number]) OFFICE/OUTPATIENT VISIT EST Diagnosis: Muscle weakness (generalized)[ICD10: M62.81] Diagnosis: Abnormal weight loss[ICD10: R63.4] [facility]: 19658 12/23/2015 ([id number]) OFFICE/OUTPATIENT VISIT EST Diagnosis: Torticollis[ICD10: M43.6] Diagnosis: Cervicalgia[ICD10: M54.2] Diagnosis: Basal cell carcinoma of skin, unspecified[ICD10: C44.91] [facility]: 60279 09/23/2015 ([id number]) OFFICE/OUTPATIENT VISIT EST Diagnosis: Constipation[ICD9: 564.00] Diagnosis: MUSCLE WEAKNESS-GENERAL[ICD9: 728.87] Cherri HOLGUIN [facility] CPT-4: 89633 04/15/2015 ([id number]) OFFICE/OUTPATIENT VISIT EST Diagnosis: MALAISE AND FATIGUE[ICD9: 780.79] Diagnosis: 3RD DEGREE BURN[ICD9: 949.3] Cherri HOLGUIN [facility] CPT-4: 06862 01/14/2015 ([id number]) OFFICE/OUTPATIENT VISIT EST Diagnosis: Constipation[ICD9: 564.00] Diagnosis: MUSCLE WEAKNESS-GENERAL[ICD9: 728.87] Diagnosis: 3RD DEGREE BURN[ICD9: 949.3] Cherri JOHNSTONLINE EarlBelkis PERNELL [facility] CPT-4: 67838 10/29/2014 ([id number]) OFFICE/OUTPATIENT VISIT EST Diagnosis: Weakness generalized[ICD9: 780.79] Diagnosis: 3RD DEGREE BURN[ICD9: 949.3] Cherri JOHNSTONLINE EarlBelkis [facility]NELL [facility] CPT-4: 80339 08/20/2014 ([id number]) OFFICE/OUTPATIENT VISIT EST Diagnosis: 3RD DEGREE BURN[ICD9: 949.3] Diagnosis: DYSPHAGIA NEC[ICD9: 787.29] Cherri SANCHEZQUELINE Martha Partida XENIA [facility] CPT-4: 62134 06/04/2014 ([id number]) OFFICE/OUTPATIENT VISIT EST Diagnosis: 3RD DEGREE BURN[ICD9: 949.3] Diagnosis: Complication of skin graft[ICD9: 996.52] Diagnosis: TOBACCO USE DISORDER[ICD9: 305.1] Cherri Mianrl Franklin EarlBelkis [facility] CPT-4: 28369 05/06/2014 ([id number]) OFFICE/OUTPATIENT VISIT EST Diagnosis: CELLULITIS[ICD9: 682.9] Cherri Pappasrl CHERRI EarlBelkis LAWSON NANNETTE [facility] CPT-4: 28427 08/07/2013 ([id number]) OFFICE/OUTPATIENT VISIT EST Diagnosis: MUSCLE WEAKNESS-GENERAL[ICD9: 728.87] Diagnosis: MALAISE AND FATIGUE[ICD9: 780.79] Diagnosis: ABNORMALITY OF GAIT[ICD9: 781.2] Cherri HOLGUIN DO [facility] CPT-4: 85179 05/23/2013 ([id number]) OFFICE/OUTPATIENT VISIT EST Diagnosis: MALAISE AND FATIGUE[ICD9: 780.79] Diagnosis: MUSCLE WEAKNESS-GENERAL[ICD9: 728.87] Diagnosis: HEMIPLEGIANOS SIDE NOS[ICD9: 342.90] Diagnosis: 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] Cherri HOLGUIN [facility] CPT-4: 66293 04/25/2013 ([id number]) OFFICE/OUTPATIENT VISIT EST Diagnosis: MUSCLE WEAKNESS-GENERAL[ICD9: 728.87] Diagnosis: ABNORMALITY OF GAIT[ICD9: 781.2] Diagnosis: MALAISE AND FATIGUE[ICD9: 780.79] Cherri HOLGUIN [facility] CPT-4: 13756 01/22/2013 OFFICE/OUTPATIENT VISIT EST Diagnosis: MALAISE AND FATIGUE[ICD9: 780.79] Diagnosis: MUSCLE WEAKNESS-GENERAL[ICD9: 728.87] Diagnosis: HEMIPLEGIANOS SIDE NOS[ICD9: 342.90] Diagnosis: ABNORMALITY OF GAIT[ICD9: 781.2] Cherri HOLGUIN [facility] CPT-4: 77315 10/18/2012 OFFICE/OUTPATIENT VISIT EST Diagnosis: ABNORMALITY OF GAIT[ICD9: 781.2] Diagnosis: MALAISE AND FATIGUE[ICD9: 780.79] Diagnosis: MUSCLE WEAKNESS-GENERAL[ICD9: 728.87] Cherri HOLGUIN [facility] CPT-4: 90211 09/25/2012 OFFICE/OUTPATIENT VISIT EST Diagnosis: CERVICALGIA[ICD9: 723.1] Diagnosis: ABNORMALITY OF GAIT[ICD9: 781.2] Diagnosis: MUSCLE WEAKNESS-GENERAL[ICD9: 728.87] Cherri HOLGUIN DO [facility] CPT-4: 67589 08/24/2012 ([id number]) OFFICE/OUTPATIENT VISIT EST Diagnosis: URINARY TRACT INFECTION[ICD9: 599.0] Diagnosis: Altered mental state[ICD9: 780.97] Diagnosis: MUSCLE WEAKNESS-GENERAL[ICD9: 728.87] Diagnosis: HEMIPLEGIANOS SIDE NOS[ICD9: 342.90] Diagnosis: Cervicalgia[ICD9: 723.1] Cherri CARIAS [facility] CPT-4: 69949 07/27/2012 OFFICE/OUTPATIENT VISIT EST Diagnosis: URINARY TRACT INFECTION[ICD9: 599.0] Diagnosis: Weakness generalized[ICD9: 780.79] Diagnosis: FEBRILE ILLNESS[ICD9: 780.60] Diagnosis: Vision disturbance[ICD9: 368.9] Tasneem HOLGUIN [facility] CPT-4: 84436 07/05/2012 OFFICE/OUTPATIENT VISIT EST Diagnosis: CONJUNCTIVITIS NOS[ICD9: 372.30] Diagnosis: MUSCLE WEAKNESS-GENERAL[ICD9: 728.87] Diagnosis: HEMIPLEGIANOS SIDE NOS[ICD9: 342.90] Diagnosis: ABNORMALITY OF GAIT[ICD9: 781.2] [facility]: 80998 05/29/2012 ([id number]) OFFICE/OUTPATIENT VISIT EST Diagnosis: MUSCLE WEAKNESS-GENERAL[ICD9: 728.87] Diagnosis: HEMIPLEGIANOS SIDE NOS[ICD9: 342.90] Diagnosis: ABNORMALITY OF GAIT[ICD9: 781.2] Diagnosis: DYSPEPSIA[ICD9: 536.8] Diagnosis: GERD[ICD9: 530.81] Cherri HOLGUIN ALKALINE WATER [facility] CPT-4: 61443 02/02/2012 ([id number]) OFFICE/OUTPATIENT VISIT EST Diagnosis: MUSCLE WEAKNESS-GENERAL[ICD9: 728.87] Diagnosis: ABNORMALITY OF GAIT[ICD9: 781.2] Diagnosis: GERD[ICD9: 530.81] Cherri HOLGUIN ALKALINE WATER [facility] CPT-4: 83602 11/03/2011 OFFICE/OUTPATIENT VISIT EST Diagnosis: MUSCLE WEAKNESS-GENERAL[ICD9: 728.87] Diagnosis: ABNORMALITY OF GAIT[ICD9: 781.2] Diagnosis: VOMITING ALONE[ICD9: 787.03] Diagnosis: GERD[ICD9: 530.81] Cherri HOLGUIN [facility] CPT-4: 56673 08/25/2011 OFFICE/OUTPATIENT VISIT EST Diagnosis: CONJUNCTIVITIS NOS[ICD9: 372.30] Cherri HOLGUIN DO [facility] CPT-4: 96201 05/27/2011 OFFICE/OUTPATIENT VISIT EST Diagnosis: MUSCLE WEAKNESS-GENERAL[ICD9: 728.87] Diagnosis: ABNORMALITY OF GAIT[ICD9: 781.2] Cherri HOLGUIN DO [facility] CPT-4: 71515 04/15/2011 OFFICE/OUTPATIENT VISIT EST Diagnosis: MALAISE AND FATIGUE[ICD9: 780.79] Diagnosis: MUSCLE WEAKNESS-GENERAL[ICD9: 728.87] Diagnosis: DEPRESSIVE DISORDER NEC[ICD9: 311] Diagnosis: ABNORMALITY OF GAIT[ICD9: 781.2] Cherri HOLGUIN DO [facility] CPT-4: 72510 03/22/2011 OFFICE/OUTPATIENT VISIT EST Cherri DORANTES DO [facility] CPT- 4: 71598 02/22/2011 ([id number]) OFFICE/OUTPATIENT VISIT EST Cherri HOLGUIN DO [facility] CPT-4: 64073 01/26/2011 ([id number]) OFFICE/OUTPATIENT VISIT, EST Cherri HOLGUIN DO [facility] CPT-4: 32658 06/15/2010 ([id number]) OFFICE/OUTPATIENT VISIT, EST Cherri HOLGUIN DO [facility] CPT-4: 66130 05/04/2010 ([id number]) OFFICE/OUTPATIENT VISIT, EST Cherri HOLGUIN DO [facility] CPT-4: 82167 03/03/2010 ([id number]) OFFICE/OUTPATIENT VISIT, EST Cherri HOLGUIN DO [facility] CPT-4: 45662 10/20/2009 Plan of Care Planned Activity Notes [...] : M62.81 06/25/2019 Appointment: Cherri Holguintel: [address] [place], [place] [phone] [place] Confirmed with nara. FOLLOW UP 06/25/2019 [...] ICD-10 : R63.4 02/05/2019 Appointment: Cherri Holguintel: [address] [place], [place] [phone] [place] Confirmed with Nara Hankins 02/02 @ 11:07 am FOL LOW UP 02/05/2019 Appointment: Cherri Holguintel: [address] [place], [place] [phone] [place] NO SHOW 01/24/2019 Visit Diagnosis Plan: Attention and concentration defi cit Discussion: Trial of strattera 10mg daily for 1 week then 25mg daily Recheck 6 weeks Stimulants have caused weight loss in past as patient is also poor, picky eater so with the stimulants her appetite worsens even more ICD-9 : 799.51 ICD-10 : R41.840 12/13/2018 Appointment: Cherri Holguintel: [address] [place], [place] [phone] [place] confirmed with Morena FOLLOW UP 12/13/2018 [...] R53.83 11/27/2018 Appointment: [facility] [phone] [facility] [place] confirmed with Karlee FOLLOW UP 11/27/2018 [...] K59.01 09/25/2018 Appointment: Cher[facility]el[facility] [phone] [facility] [place] FOLLOW UP 09/25/2018 Visit Diagnosis Plan: [facility]counter for [facility] examination with abnormal findings [...] : Z12.39 08/03/2018 Appointment: Maxine Glasgow [address] [facility] Annual Well Visit 08/03/2018 Visit Diagnosis [...] : K21.9 06/22/2018 Appointment: Maxine Glasgow [address] [facility] H & P 06/22/2018 Visit Diagnosis Plan: Gastro-esophageal reflux disease without esophagitis Discussion: Continue aciphex at 20m po daily Recheck 2mos ICD-9 : 530.81 ICD-10 : K21.9 04/06/2018 Appointment: Cherri Holguin WPtel: [address] [place] [address] FOLLOW UP 04/06/2018 Patient Education: Patient Medication Summary Completed 04/06/2018 Appointment: Cherri Holguin WPtel: [address] [place] [address] RESCHEDULED 03/07/2018 Visit Diagnosis Plan: Gastro-esophageal reflux disease without esophagitis Discussion: patient had aciphex and prevacid on med list. order written out on patient's list to only give the aciphex as prescribed and not both. follow up in one month to assess medication efficacy and constipation. ICD-9 : 530.81 ICD-10 : K21.9 03/06/2018 Appointment: Maxine Glasgow [address] [facility] FOLLOW UP 03/06/2018 Patient Education: Patient [...] : F51.01 02/15/2018 Appointment: Cherri Holguin WPtel: [address] [place], [place] [phone] [place] FOLLOW UP 02/15/2018 Patient Education: Patient Medication Summary Completed 02/15/2018 Appointment: Cherri Holguin WPtel: [address] [place], [place] [phone] [employer] called, stating that the patient [...] : K21.9 12/12/2017 Appointment: Cherri Holguin WPtel: [facility] [place] FOLLOW UP 12/12/2017 Patient Education: Patient Medication Summary Completed 12/12/2017 Visit Diagnosis Plan: Nondisplaced fract ure of medial malleolus of left tibia, subsequent encounter for closed fracture with delayed healing Discussion: Add miacalcin nasal spray for next 2mos Fwup with ortho Follow Up: 2 months ICD-9 : V54.16 ICD-10 : S82.55XG 10/10/2017 Appointment: Cherri Holguin WPtel: [address] [place] [address] [place] FOLLOW UP 10/10/2017 Patient Education: Patient Medication Summary Completed 10/10/2017 Appointment: Cherri Holguin WPtel: [address] [place] [address] [place] RESCHEDULED 10/04/2017 Referral: Alvarado Mercado WPtel: [address] [address] [place] Referral Initiated 10/04/2017 Visit Diagnosis Plan: Acute upper respiratory infectio n, unspecified Discussion: continue with tessalon perles as needed. increase fluids. notify if worsening symptoms including shortness of breath or fever. call or rtc later this week if no improvement. instructed patient to perform deep breathing exercises at home. ICD-9 : 465.9 ICD-10 : J06.9 09/19/2017 Appointment: Maxine Glasgow [address] [place] [address] ACUTE ILLNESS 09/19/2017 Patient Education: Patient Medication Summary Completed 09/19/2017 Appointment: Cherri Holguin WPtel: [address] [place] [address] [place] CANCELED 08/16/2017 Visit Diagnosis Plan: Muscle [...] : L98.8 08/04/2017 Appointment: Cherri Holguin WPtel: [address] [place], [place] [phone] [place] FOLLOW UP 08/04/2017 Patient Education: Patient [...] : S31.601S 07/12/2017 Appointment: Cherri Holguin WPtel: [address] [place] [address] Follow Up 07/12/2017 Patient Education: Patient Medication [...] : B35.6 05/30/2017 Appointment: Cherri Holguin WPtel: [address] [place] [address] FOLLOW UP 05/30/2017 Patient Education: Patient Medication Summary Completed 05/30/2017 Visit Diagnosis Plan: Cellulitis of abdominal wall Dis cussion: Finish keflex Referral to wound care ICD-9 : 682.2 ICD-10 : L03.311 05/02/2017 Appointment: Cherri Holguin WPtel: [address] [place] [address] [place] FOLLOW UP 05/02/2017 Patient Education: Patient Medication Summary Completed 05/02/2017 Referral: Remigio Valdes WPtel: [address] [place], [place] [phone] [place] Referral Initiated 04/05/2017 Visit Diagnosis Plan: Muscle weakness (generalized) Di scussion: Stable Follow Up: 2 months ICD-9 : 728.87 ICD-10 : M62.81 02/28/2017 Visit Diagnosis Plan: Cellulitis of chest wall Discuss ion: Keflex x1 week Continue daily dressing changes ICD-9 : 682.2 ICD-10 : L03.313 02/28/2017 Appointment: Cherri Holguintel: [facility] 02/24 confirmed~sl FOLLOW UP 02/28/2017 Patient Education: Patient Medication Summary Completed 02/28/2017 Visit Diagnosis Plan: Cellulitis of abdominal wall Dis cussion: Healing and improving so will finish all of clindamycin and monitor wounds for any worsening or recurrence ICD-9 : 682.2 ICD-10 : L03.311 12/06/2016 Appointment: Cherri Holguintel: [address] [place] [address] WORK IN 12/06/2016 Patient Education: Patient Medication Summary Completed 12/06/2016 Visit Diagnosis Plan: Cutaneous abscess of abdominal w all Discussion: Continue clindamycin and dressing changes To ER this weekend if worsens Fwup with me in 4 days for recheck ICD-9 : 682.2 ICD-10 : L02.211 12/02/2016 Appointment: Cherri [facility]guintel[facility] [address] [facility] FOLLOW UP 12/02/2016 Patient Education: Patient Medication [...] L02.211 12/01/2016 Appointment: Cherri Holguin [facility]Ptel[facility] [phone] [facility] [place] WORK [place] 12/01/2016 Patient Education: Patient Medication Summary Completed 12/01/2016 Visit Diagnosis Plan: Cutaneous abscess of abdominal w all Discussion: Copious amounts of pus expressed until bloody discharge Start clindamycin Recheck tomorrow Erythema outline marked Follow Up: 1 days ICD-9 : 682.2 ICD-10 : L02.211 11/30/2016 Appointment: Cherri Holguin WPtel: [address] [place], [place] [phone] 11/29 confirmed`sl FOLLOW UP 11/30/2016 Patient Education: Patient Medication Summary Completed 11/30/2016 Appointment: Cherri Holguin WPtel: [address] [place], [place] [phone] 11/10 scalp looks ok will discuss at [...] : K59.01 10/26/2016 Appointment: Cherri Holguin WPtel: [facility] ACUTE ILLNESS 10/26/2016 Patient Education: Patient Medication Summary Completed 10/26/2016 Patient Education: Patient Medication Summary Completed 10/21/2016 Care Plan: CT HEAD/BRAIN W/O DYE LOINC : 42304-2 Pending 10/21/2016 Visit Diagnosis Plan: Other seborrheic dermatitis Disc ussion: Topical ketoconazole shampoo alternating with selsun blue Follow Up: 2 months ICD-9 : 706.3 ICD-10 : L21.8 09/13/2016 Appointment: Cherri Holguin WPtel: [address] [place] [address] 09/09 confirm`sl FOLLOW UP 09/13/2016 Patient Education: Patient Medication Summary Completed 09/13/2016 Appointment: Cherri Holguin WPtel: [address] [place] [address] [place] CANCELED 07/13/2016 Visit Plan: Low-dose CT scan-45 PPD of C hest Check hemoccult Discussed updated CT of head to recheck meningioma Zostavax vaccine Will obtain last colonoscopy results Update lab 07/12/2016 Appointment: Cherri Holguin WPtel: [address] [place] [address] 07/08 confirmed~sl Annual Well Visit 07/12/2016 Patient Education: Patient Medication Summary Completed 07/12/2016 Visit Plan: Gets teeth extracted next mo nth then getting fitted for dentures so some of poor appetite is due to inability to eat certain things Continue current meds Defers flu shot 05/11/2016 Appointment: Cherri Holguin WPtel: [address] [place] [address] 05/10 confirmed~sl FOLLOW UP 05/11/2016 Patient Education: Patient Medication Summary Completed 05/11/2016 Visit Plan: Discussed nutrition and poss ible shakes as supplement until gets teeth completely pulled and fitted for full dentures Continue current meds Did have right scalp lesion removed 12/23/2015 Appointment: Cherri Holguin WPtel: [address] [place] [address] 12/21 confirmed-sp FOLLOW UP 12/23/2015 Patient Education: Patient Medication Summary Completed 12/23/2015 Referral: Tabitha Messer WPtel: [facility] [address] [address] [place] [facility] with [facility] at [facility] and gave her appt information Initiated 10/07/2015 Visit Plan: Start PT for ROM of neck Dis cussed milkshake in place of meal if does not eat at least 20% of meal--patient states she wants to lose weight and does not like the food served there See dermatology for removal of scalp lesion 09/23/2015 Appointment: Cherri Holguin WPtel: [address] [place], [place] [address] 09/22/15 appt confirmed with Amber at [facility] cn FOLLOW UP 09/23/2015 Patient Education: Patient Medication Summary Completed 09/23/2015 Visit Plan: Stop miralax and senokot-s S tart dulcolax daily Patient asking for PT and OT again but admits they don't really help/she doesn't gain much from them 04/15/2015 Appointment: Cherri Holguin WPtel: [address] [place] [address] 04/11 confirmed with [facility] cn FOLLOW UP 04/15/2015 Patient Education: Patient Medication Summary Completed 04/15/2015 Visit Plan: Check CBC, CMP, TSH, free T4 , Vit D Continue current meds 01/14/2015 Appointment: Cherri Holguin WPtel: [address] [place] [address] ACUTE ILLNESS 01/14/2015 Patient Education: Patient Medication Summary Completed 01/14/2015 Visit Plan: Change to Senokot-S 2 po BID Add miralax Has been released by burn center for now 10/29/2014 Appointment: Cherri Holguin WPtel: [address] [place], [place] [phone] 10/28 with Madiha FOLLOW UP 10/29/2014 Patient Education: Patient Medication Summary Completed 10/29/2014 Visit Plan: Patient is wheelchair bound now Continue current meds Patient following with [facility] end of 08/20/2014 Appointment: Cherri Holguin WPtel: [address] [place], [place] [phone] [facility]LP rescheduled due to cold weather 08/19 message with Madiha at [facility] FOLLOW U P 08/20/2014 Patient Education: [...] in [place] 06/04/2014 Appointment: Cherri Holguin WPtel: [address] [place], [place] [phone] FOLLOW UP 06/04/2014 Patient Education: Patient Medication Summary Completed 06/04/2014 Visit Plan: Patient sees burn center nex t week Explained importance of taking nutren routinely as needs nutrition Increase prilosec to 20mg po BID Smoking Cessation 05/06/2014 Appointment: Cherri Holguin WPtel: [address] [place], [place] [phone] 05/03 vm on patient phone 05/03 [facility] 05/06/2014 Patient Education: Patient Medication Summary Completed 05/06/2014 Visit Plan: Finish abx Brian wrap to left LE and elevate 08/07/2013 Appointment: Cherri Holguin WPtel: [address] [place] [id number] Urgent/Quick Care Follow Up 07/10 Patient Education: Patient Medication Summary Completed 08/07/2013 Appointment: Cherri Holguin WPtel: [address] [place] [id number] 07/18 appointment confirmed with patient 07/19 NO SHOW FOLLOW UP 07/19/2013 Visit Plan: Continue current meds Contin ue PT 05/23/2013 Appointment: Cherri Holguin WPtel: [address] [place] [address] 05/22 vm...appt confirmed FOLLOW UP 2012 Patient Education: Patient Medication Summary Completed 05/23/2013 Visit Plan: Long discussion about need f or 24hr care Pt wants to go home 04/25/2013 Appointment: Cherri Holguintel: [address] [place], [place] [phone] Appt confirmed with uAgusto at [facility] Follow Up 04/25/2013 Patient Education: Patient Medication Summary Completed 04/25/2013 Appointment: Cherri Holguin WPtel: [address] [place], [place] [id number] 04/20 message left at [facility] FOLLOW UP 04/23/2013 Visit Plan: Continue current meds 01/22/2013 Appointment: Cherri Holguin WPtel: [address] [place], [place] [id number] 01/22 vm left FOLLOW UP 01/22/2013 Patient Education: Patient Medication Summary Completed 01/22/2013 Appointment: Cher[facility]gu[facility]el[facility] [phone] [facility] 11/20 left message...patient called in a t 10:00am and said she was unable to get to her car. She rescheduled for 11/27 11am 11/24 left message 11/29 called to confirm, patient cancell ed due to no ride from [facility]. patient will call [facility] and see when they can bring her and then call us to schedule FOLLOW UP 11/30/2012 Visit Plan: Going to go home at the end of week with caregiver Continue current meds 10/18/2012 Appointment: Cher[facility] Holguin [facility]el[facility] [phone] [facility] 10/17 appt confirmed with Reyna FOLLOW UP 10/18/2012 Patient Education: Patient Medication Summary Completed 10/18/2012 Visit Plan: Continue and finish PT Sultana devorahe current meds Fwup October 19 or --pts 100 days is up October 21 09/25/2012 Appointment: Cherri Holguin WPtel: [address] [place] [id number] [place] worked in since retirement just droppe d her off. She was on shedule at one point but showed it was cancelled WORK IN Appointment: Cherri Holguin WPtel: [address] [place], [place] [phone] 07/17 Cancelled 09/25 Appt - Patient has appointments on 07/08 & 07/27 FOLLOW UP 09/25/2012 Patient Education: Patient Medication Summary Completed 09/25/2012 Visit Plan: Continue current meds Pt wan ts to go home when her 100 days are up 08/24/2012 Appointment: Cherri Holguin WPtel: [address] [place], [place] [phone] FOLLOW UP 08/24/2012 Patient Education: Patient Medication Summary Completed 08/24/2012 Visit Plan: DC tramadol Repeat UA and ch edu UDS Start PT for neck Discussed neurology eval, but pt has been to several in past and even [facility] 07/27/2012 Appointment: Cherri Holguin WPtel: [address] [place], [place] [phone] FOLLOW UP 07/27/2012 Patient Education: Patient Medication Summary Completed 07/27/2012 Appointment: Cherri Holguin WPtel: [address] [place], [place] [id number] 07/17 - left message..07/17 left message with Antonella at [facility] pt has appt tomorrow and on I think the 07/18 appt was scheduled prior to hospitalization. 07/18 no showed. just entered retirement so no show is forgiven FOLLOW UP 07/18/2012 Appointment: Tasneem Esquivel WPtel: [address] [place], [place] [phone] ACUTE ILLNESS 07/05/2012 Patient Education: Patient Medication Summary Completed 07/05/2012 Appointment: Cherri Holguin WPtel: [phone] FOLLOW UP 05/29/2012 Patient Education: Patient Medication Summary Completed 05/29/2012 Appointment: Cherri Holguin WPtel: [address] [place] [address] FOLLOW UP 02/02/2012 Patient Education: Patient Medication Summary Completed 02/02/2012 Visit Plan: Continue current meds Check CBC, CMP, TSH, Free T4, B12 11/03/2011 Appointment: Cherri Holguin WPtel: [address] [place] [address] FOLLOW UP 11/03/2011 Patient Education: Patient Medication Summary Completed 11/03/2011 Visit Plan: Adderall refilled Continue c urrent meds 08/25/2011 Appointment: Cherri Holguin WPtel: [address] [place] [address] FOLLOW UP 08/25/2011 Patient Education: Patient Medication Summary Completed 08/25/2011 Appointment: Cherri Holguin WPtel: [address] [place] [address] Appointment was confirmed. FOLLOW UP 08/16 Visit Plan: Esther is eye doctor. Will u se eye drop.(Cipro as she claims allergy (nausea). Pt. is accompanied by "grounds keepers" from [facility]. Written instructions given for pt. to be seen in follow up by Esther. Written RX also given to pt. for cipro eye drops. [facility] Appointment: Tasneem Esquivel WPtel: [address] [place] [address] ACUTE ILLNESS 05/27/2011 Patient Education: Patient Medication Summary Completed 05/27/2011 Visit Plan: Continue increased dose of A dderall 04/15/2011 Appointment: Cherri Holguin WPtel: [address] [place] [address] FOLLOW UP 04/15/2011 Patient Education: Patient Medication Summary Completed 04/15/2011 Appointment: Cherri Holguin WPtel: [address] [place], [place] [phone] FOLLOW UP 03/22/2011 Patient Education: Patient Medication Summary Completed 03/22/2011 Appointment: Cherri Holguin WPtel: [address] [place], [place] [phone] FOLLOW UP 02/25/2011 Visit Plan: Trial of Wellbutrin XL 150mg q AM 02/22/2011 Appointment: Cherri Holguin WPtel: [address] [place], [place] [phone] FOLLOW UP 02/22/2011 Patient Education: Patient Medication Summary Completed 02/22/2011 Visit Plan: Continue PT Add Cymbalta 30m g daily 01/26/2011 Appointment: Cherri Holguin WPtel: [address] [place], [place] [phone] FOLLOW UP 01/26/2011 Patient Education: Patient Medication Summary Completed 01/26/2011 Visit Plan: Cont current meds and PT Exa m for Power chair completed Adderall rx refilled 06/15/2010 Appointment: Cherri Holguin WPtel: [address] [place], [place] [phone] ESTABLISHED PATIENT 06/15/2010 Patient Education: Patient Medication Summary Completed 06/15/2010 Visit Plan: To rehab today for PT/OT--I will follow on rehab unit 05/04/2010 Appointment: Cherri Holgiun WPtel: [address] [place], [place] [phone] FOLLOW UP 05/04/2010 Patient Education: Patient Medication Summary Completed 05/04/2010 Visit Plan: Cont PT Cont Forteo Long dis cussion about living home--will discuss with PT when finishes this session 03/03/2010 Appointment: Cherri Holguin WPtel: [address] [place], [place] [phone] FOLLOW UP 03/03/2010 Patient Education: Patient Medication Summary Completed 03/03/2010 Visit Plan: EGD by Dr. Dang Pt agrees to restart Forteo 10/20/2009 Appointment: Cherri Holguin WPtel: [phone] [id number] FOLLOW UP 10/20/2009 Patient Education: Patient Medication Summary Completed 10/20/2009 Referral: Antonio Gandhi WPtel: [phone] [id number] [place] Referral Initiated Instructions Comment . Low-dose [...] meds Patient following with [facility] end of October . Patient is eating [...] several in past and even [facility] . Continue current meds Check CBC, CMP, TSH, Free T4, B12 . Adderall refilled Continue current meds . 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 Will use eye bj p.(Cipro as she claims allergy (nausea). Pt. is accompanied by "grounds keepers" from [facility]. Written instructions given for pt. to [...]
--- OUTSIDE RECORDS SUMMARY | 2020-03-05 20:52 | XMS REPORT | CCD ---
Author Author Rosario Holguin D.O. Organization [facility] Address [address] [place] [address] Phone Care Team Providers Care Agriculture Consultant Name Role Phone Cherri Holguin D.O., PP Unavailable CCM Unavailable Summary Purpose Interface Exchange Insurance Providers Payer name Policy type / Coverage type Covered democrat ID Effective Begin Date Effective End Date WPS MEDICARE PART B [place] Medicare Part B [id number] Unknown AARP Medicare Part B [id number] Unknown Family History Family History data not found Social History Social History Element Codes Description Effective Dates Tobacco history SNOMED CT: 4827214 Former smoker 04/15/2015 Allergies, Adverse Reactions, Alerts [...] B-12) 1,000 mcg/mL injection solution Rx Norm: 909828 1 Milliliter(s) Intramuscular every 2 weeks 06/26/2019 09/24/2019 Inacti ve cyanocobalamin (vit B-12) 1,000 mcg/mL injection solution Rx Norm: 748716 1 Milliliter(s) Intramuscular every 2 weeks 06/26/2019 06/25/2019 Inacti ve bisacodyl 10 mg rectal suppository RxNorm: 625156 1 Sup pository Rectal QD as needed 05/10/2019 No Stop Date Active glycerin (adult) rectal suppository RxNorm: 9099270 1 Suppositor y RTL BIW 07/25/2018 10/22/2018 Inactive rabeprazole 20 mg tablet,delayed release RxNorm: 764278 1 Table t(s) PO QD 03/01/2018 05/29/2018 Inactive replaces lansoprazol e Adderall XR 10 mg capsule,extended release RxNorm: 430124 1 Cap teresa(s) PO QAM 10/20/2017 12/19/2017 Inactive Tessalon Perles 100 mg capsule RxNorm: 479044 1 Capsule (s) PO TID as needed for cough 09/16/2017 09/30/2019 Inactive Cymbalta 30 mg capsule,delayed release RxNorm: 004892 1 Capsule (s) PO QD 08/17/2017 No Stop Date Active nystatin 100,000 unit/gram topical powder RxNorm: 452564 1 Appl ication TOP BID 08/16/2017 02/14/2018 Inactive Adderall XR 10 mg capsule,extended release RxNorm: 134493 1 Cap teresa(s) PO QAM 08/11/2017 09/09/2017 Inactive Adderall XR 10 mg capsule,extended release RxNorm: 561878 1 Cap teresa(s) PO QAM 08/04/2017 08/03/2017 Inactive Adderall XR 10 mg capsule,extended release RxNorm: 470418 1 Cap teresa(s) PO QAM 08/04/2017 08/10/2017 Inactive Bactrim DS 800 mg-160 mg tablet RxNorm: 400462 1 Tablet(s) PO BID 1 08/28/2016 07/07/2017 Inactive clindamycin 300 mg capsule RxNorm: 434556 2 Capsule(s) PO TID doses for today and tomorrow 11/30/2016 05/01/2017 Inactive ketoconazole 2 % shampoo RxNorm: 741661 1 Application TOP twice a week 09/14/2016 05/01/2017 Inactive hydrocodone 5 mg-acetaminophen 325 mg tablet RxNorm: 466402 1 Tablet(s) PO Q6H as needed for pain 07/12/2016 05/01/2017 Inactive Cipro 250 mg tablet RxNorm: 071001 1 Tablet(s) PO BID 09/29/201509/09 Inactive cefuroxime axetil 250 mg tablet RxNorm: 526263 1 Tablet(s) PO BID 0 09/10/2015 09/16/2015 Inactive Micro-K 8 mEq capsule,extended release RxNorm: 818359 1 Capsule (s) PO QD 08/20/2015 08/16/2017 Inactive Micro-K 8 mEq capsule,extended release RxNorm: 657137 1 Capsule (s) PO QD 08/20/2015 08/19/2015 Inactive Adderall XR 20 mg capsule,extended release RxNorm: 551257 1 Cap teresa(s) PO QAM 04/30/2015 02/11/2016 Inactive hydroxyzine HCl 25 mg tablet RxNorm: 474714 1 Tablet(s) PO Q6H as needed for itching/hives 04/02/2015 09/12/2016 Inactive Miralax 17 gram oral powder packet RxNorm: 030909 17 Gr am(s) PO BID for constipation 02/26/2015 02/11/2016 Inactive Adderall XR 20 mg capsule,extended release RxNorm: 516019 1 Cap teresa(s) PO QAM 07/09/2014 08/07/2014 Inactive Adderall 20 mg tablet RxNorm: 796970 2 Tablet(s) PO QD 02/04/201408/2013 Inactive [AttnRPh: Saving apply/adjudicate RxGRP: SG20 RxBIN:[id number] RxPCN: ID#:[id number]] triamcinolone acetonide 0.1 % topical cream RxNorm: 8604563 1 Application TOP BID to affected area as needed 12/12/2013 01/13/2015 Inactive [ AttnRPh: Saving apply/adjudicate RxGRP:SG20 RxBIN:[id number] RxPCN:HT ID#:[id number]] Adderall 20 mg tablet RxNorm: 202308 2 Tablet(s) PO QD 12/04/2013 Inactive [AttnRPh: Saving apply/adjudicate RxGRP: SG20 RxBIN:[id number] RxPCN:HT ID#:[id number]] Adderall 20 mg tablet RxNorm: 623651 2 Tablet(s) PO QD 12/03/2013 Inactive [AttnRPh: Saving apply/adjudicate RxGRP: SG20 RxBIN:[id number] RxPCN: ID#:[id number]] Adderall 20 mg tablet RxNorm: 519845 2 Tablet(s) PO QD 11/02/2013 Inactive Adderall 20 mg tablet RxNorm: 550873 2 Tablet(s) PO QD 10/01/2013 Inactive meloxicam 7.5 mg tablet RxNorm: 376261 1 Tablet(s) PO QD 09/24/2013 0 08/19/2014 Inactive lisinopril 20 mg tablet RxNorm: 820555 1 Tablet(s) PO QD 09/24/2013 0 08/19/2014 Inactive Protonix 40 mg tablet,delayed release RxNorm: 588414 1 Tablet(s ) PO QD 09/24/2013 08/19/2014 Inactive Adderall 20 mg tablet RxNorm: 739874 2 Tablet(s) PO QD 08/29/2013 Inactive Adderall 20 mg tablet RxNorm: 451585 2 Tablet(s) PO QD 08/02/2013 Inactive hydroxyzine HCl 25 mg tablet RxNorm: 603106 1 Tablet(s) PO Q6H as needed 06/29/2013 08/19/2014 Inactive Adderall 20 mg tablet RxNorm: 495505 2 Tablet(s) PO QD 05/22/2013 Inactive Protonix 40 mg tablet,delayed release RxNorm: 130081 1 Tablet(s ) PO QD 05/15/2013 09/11/2013 Inactive meloxicam 7.5 mg tablet RxNorm: 042394 1 Tablet(s) PO QD 05/15/2013 0 09/11/2013 Inactive lisinopril 20 mg tablet RxNorm: 676486 1 Tablet(s) PO QD 05/15/2013 0 09/11/2013 Inactive Adderall 20 mg tablet RxNorm: 850277 2 Tablet(s) PO QD 04/02/2013 No Stop Date Active Adderall 20 mg tablet RxNorm: 484902 2 Tablet(s) PO QD 02/27/2013 No Stop Date Active Adderall 20 mg tablet RxNorm: 479979 2 Tablet(s) PO QD 01/22/2013 No Stop Date Active Adderall 20 mg tablet RxNorm: 580593 2 Tablet(s) PO QD 12/28/2012 No Stop Date Active Adderall 20 mg tablet RxNorm: 400804 2 Tablet(s) PO QD 12/01/2012 No Stop Date Active Adderall 20 mg tablet RxNorm: 558096 2 Tablet(s) PO QD 11/01/2012 No Stop Date Active K-Dur 20 mEq tablet,extended release RxNorm: 399501 1 Tablet(s) PO QD 10/19/2012 11/26/2018 Inactive meloxicam 7.5 mg tablet RxNorm: 446546 1 Tablet(s) PO QD 10/19/2012 0 04/16/2013 Inactive Protonix 40 mg tablet,delayed release RxNorm: 139251 1 Tablet(s ) PO QD 10/19/2012 04/16/2013 Inactive lisinopril 20 mg tablet RxNorm: 016708 1 Tablet(s) PO QD 10/19/2012 0 04/16/2013 Inactive Cipro 500 mg tablet RxNorm: 428953 1 Tablet(s) PO BID 07/05/201211/2011 Inactive Adderall XR 20 mg capsule,extended release RxNorm: 921720 2 Cap teresa(s) PO QAM 06/12/2012 07/26/2012 Inactive Adderall XR 20 mg capsule,extended release RxNorm: 028934 2 Cap teresa(s) PO QAM 05/16/2012 06/11/2012 Inactive Adderall XR 20 mg capsule,extended release RxNorm: 203314 2 Cap tersea(s) PO QAM 04/21/2012 05/15/2012 Inactive Adderall XR 20 mg capsule,extended release RxNorm: 832422 2 Cap teresa(s) PO QAM 02/16/2012 03/16/2012 Inactive Enablex 15 mg 24 hr Tab RxNorm: 203550 1 Tablet(s) PO QPM repla mady Vesicare 02/07/2012 05/28/2012 Inactive Enablex 15 mg 24 hr Tab RxNorm: 262078 1 Tablet(s) PO QPM repla mady Vesicare 02/07/2012 08/04/2012 Inactive Protonix 40 mg Tab RxNorm: 458912 1 Tablet(s) PO QD 02/07/20122011 Inactive Protonix 40 mg Tab RxNorm: 660138 1 Tablet(s) PO QD 02/02/20122011 Inactive Enablex 15 mg 24 hr Tab RxNorm: 779670 1 Tablet(s) PO QPM repla mady Vesicare 02/02/2012 02/06/2012 Inactive Adderall XR 20 mg 24 hr Cap RxNorm: 583040 2 Capsule(s) PO QAM 01/0602/15/2012 Inactive Adderall XR 20 mg 24 hr Cap RxNorm: 233011 2 Capsule(s) PO QAM 12/0601/15/2012 Inactive Adderall XR 20 mg 24 hr Cap RxNorm: 286613 2 Capsule(s) PO QAM 11/0612/16/2011 Inactive Adderall XR 20 mg 24 hr Cap RxNorm: 927580 2 Capsule(s) PO QAM 10/0611/17/2011 Inactive Adderall XR 20 mg 24 hr Cap RxNorm: 123727 2 Capsule(s) PO QAM 09/0910/24/2011 Inactive Prevacid 30 mg Cap RxNorm: 678602 1 Capsule(s) PO QD 07/30/201109/27 Inactive Adderall XR 20 mg 24 hr Cap RxNorm: 167176 2 Capsule(s) PO QAM 07/0908/28/2011 Inactive Adderall XR 20 mg 24 hr Cap RxNorm: 150947 2 Capsule(s) PO QAM 06/0807/21/2011 Inactive ciprofloxacin 0.3 % Eye Drops RxNorm: 115308 2 Drop(s) OPH Q2H 05/0905/31/2011 Inactive Adderall XR 20 mg 24 hr Cap RxNorm: 612449 2 Capsule(s) PO QAM 05/08 No Stop Date Active Wellbutrin XL 150 mg 24 hr Tab RxNorm: 893420 1 Tablet(s) PO QAM 04/14/2011 Inactive Vesicare 10 mg Tab RxNorm: 022880 1 Tablet(s) PO QD 12/24/20102011 Inactive Vesicare 10 mg Tab RxNorm: 762672 1 Tablet(s) PO QD 12/21/20102018 Inactive Adderall XR 30 mg 24 hr Cap RxNorm: 172750 1 Capsule(s) PO QD 11/1712/16/2010 Inactive Vesicare 10 mg Tab RxNorm: 626861 1 Tablet(s) PO QD 09/21/20102010 Inactive Adderall XR 30 mg 24 hr Cap RxNorm: 318158 1 Capsule(s) PO 09/17/1910/16/2010 Inactive Adderall XR 30 mg 24 hr Cap RxNorm: 901623 1 Capsule(s) PO QAM 07/0911/26/2018 Inactive Adderall XR 30 mg 24 hr Cap RxNorm: 804690 1 Capsule(s) PO QAM 07/0908/03/2010 Inactive Adderall XR 20 mg 24 hr Cap RxNorm: 356608 2 Capsule(s) PO QD 01/2602/02/2010 Inactive Adderall XR 20 mg 24 hr Cap RxNorm: 504391 1 Capsule(s) PO QD 01/2605/03/2010 Inactive Forteo 20 mcg/dose (600 mcg/2.4 mL) Sub-Q Pen Injector RxNorm: 1 857031 SQ 12/30/2009 01/25/2011 Inactive hyoscyamine 0.125 mg sublingual tablet RxNorm: 6971147 1 Tablet(s) SL Q4H as needed for excessive secretions No Start Date Active Senokot-S 8.6 mg-50 mg tablet RxNorm: 6651206 2 Tablet(s) PO BID No Start Date Active rabeprazole 20 mg tablet,delayed release RxNorm: 077114 1 Table t(s) PO QD No Start Date Active Micro-K 10 10 mEq capsule,extended release RxNorm: 036602 1 Cap teresa(s) PO QD No Start Date Active docusate sodium 100 mg tablet RxNorm: 8056915 1 Tablet(s) PO Q8H as needed No Start Date Active ondansetron HCl 4 mg tablet RxNorm: 861916 1 Tablet(s) PO Q4H a s needed No Start Date Active Vitamin D3 5,000 unit tablet RxNorm: 229076 1 Tablet(s) PO QD No Star t Date Active bisacodyl 5 mg tablet RxNorm: 054210 1 Tablet(s) PO BID as needed N o Start Date Active aspirin 81 mg tablet RxNorm: 092053 1 Tablet(s) PO QD No Start Date Active Multivitamin And Mineral oral RxNorm: oral No Start Date Active Benadryl 1 % topical cream RxNorm: 6851273 TOP as needed for hiv es No Start Date Active K-Dur 20 mEq tablet,extended release RxNorm: 941211 1 Tablet(s) PO QD No Start Date 08/19/2014 Inactive Colace 100 mg capsule RxNorm: 8978879 1 Capsule(s) PO BID No Start Date 01/19/2017 Inactive ketoconazole 2 % shampoo RxNorm: 780765 1 Application TOP twice a week No Start Date 09/13/2016 Inactive ibuprofen 600 mg tablet RxNorm: 176041 1 Tablet(s) PO Q6H as ne eded No Start Date 06/21/2018 Inactive Zaditor 0.025 % Eye Drops RxNorm: 069324 1 Drop(s) OPH BID No Start Date 05/28/2012 Inactive senna 8.6 mg tablet RxNorm: 276333 2 Tablet(s) PO BID No Start Date 0 02/11/2016 Inactive senna 8.6 mg tablet RxNorm: 858892 1 Tablet(s) PO BID No Start Date 0 02/11/2016 Inactive Amoxil 500 mg capsule RxNorm: 225832 1 Capsule(s) PO BID No Start D ate 05/01/2017 Inactive lisinopril 20 mg tablet RxNorm: 313119 1 Tablet(s) PO QD No Start D ate 10/18/2012 Inactive Prevacid 30 mg Capsule, delayed release RxNorm: 296079 1 Capsul e(s) PO QD No Start Date 02/01/2012 Inactive Senokot-S 8.6 mg-50 mg Tab RxNorm: 9968095 2 Tablet(s) PO QD PRN No Start Date 03/02/2010 Inactive Cymbalta 30 mg capsule,delayed release RxNorm: 415229 1 Capsule (s) PO QD No Start Date 08/16/2017 Inactive ketoconazole 2 % topical cream RxNorm: 858877 1 Applica tion TOP BID to scaly eyebrows No Start Date 05/01/2017 Inactive lorazepam 0.5 mg tablet RxNorm: 159339 1 Tablet(s) PO Q4H as ne eded No Start Date 06/21/2018 Inactive Vitamin C 500 mg tablet RxNorm: 105898 1 Tablet(s) PO QD No Start D ate 01/21/2013 Inactive albuterol sulfate 2.5 mg/3 mL (0.083 %) Neb Solution RxNorm: 776039 Milliliter(s) INH 1 vial in nebulizer every 4 hours as needed No Start Date 01/21/2013 Inactive Adderall XR 20 mg 24 hr Cap RxNorm: 291019 1 Capsule(s) PO QAM No S tart Date 01/25/2011 Inactive Xanax 0.25 mg Tab RxNorm: 524570 1/2 Tablet(s) PO BID PRN No Start Date 03/02/2010 Inactive Tylenol Extra Strength 500 mg Tab RxNorm: 131916 2 Tablet(s) PO PRN No Start Date 08/24/2011 Inactive Adderall 20 mg tablet RxNorm: 229058 2 Tablet(s) PO QD No Start Date 10/31/2012 Inactive bisacodyl 5 mg tablet,delayed release RxNorm: 996906 1 Tablet(s) PO Q12H as needed No Start Date 02/04/2019 Inactive Tessalon Perles 100 mg capsule RxNorm: 893858 1 Capsule (s) PO TID as needed for cough No Start Date 09/15/2017 Inactive Vitamin D3 1,000 unit tablet RxNorm: 876614 3 Tablet(s) PO QD No St art Date 02/22/2017 Inactive meloxicam 7.5 mg tablet RxNorm: 006614 1 Tablet(s) PO QD No Start D ate 10/18/2012 Inactive Bactroban 2 % topical ointment RxNorm: 274651 1 Application TOP QD No Start Date 12/11/2017 Inactive Toviaz 8 mg 24 hr Tab RxNorm: 929244 1 Tablet(s) PO QD No Start Date 09/21/2010 Inactive Prevacid 15 mg capsule,delayed release RxNorm: 270779 Capsule(s ) PO QD No Start Date 02/28/2018 Inactive K-Dur 20 mEq tablet,extended release RxNorm: 5018844 1 Tablet(s) PO QD No Start Date 10/18/2012 Inactive Adderall XR 20 mg 24 hr Cap RxNorm: 784597 2 Capsule(s) PO QAM No S tart Date 05/24/2011 Inactive Calcium with Vitamin D 600 mg-400 unit Tab RxNorm: 490133 1 Tab let(s) PO QD No Start Date 08/24/2011 Inactive Miralax 17 gram oral powder packet RxNorm: 531145 17 Gram(s) PO BID as needed No Start Date 11/26/2018 Inactive Zestril 10 mg Tab RxNorm: 950953 1 Tablet(s) PO QD No Start Date 10/06 Inactive baclofen 10 mg tablet RxNorm: 577995 1 Tablet(s) PO QHS No Start Da te 09/11/2015 Inactive Tums 500 Oral RxNorm: Oral No Start Date 01/13/2015 Inactive Senokot-S 8.6 mg-50 mg tablet RxNorm: 8724613 1 Tablet(s) PO BID No Start Date 11/26/2018 Inactive Prozac 10 mg Tab RxNorm: 385078 1 Capsule(s) PO QD No Start Date 10/06 Inactive Elavil 10 mg tablet RxNorm: 632042 1 Tablet(s) PO QHS No Start Date 0 12/12/2018 Inactive Dulcolax Stool Softener (docusate) 100 mg capsule RxNorm: 12 04044 1 Capsule(s) PO Q8H as needed No Start Date 01/19/2017 Inactive Adderall XR 30 mg 24 hr Cap RxNorm: 679514 1 Capsule(s) PO QAM No S tart Date 04/14/2011 Inactive Milk of Magnesia-Cascara 15.25 % oral suspension RxNorm: oral No Start Date 11/26/2018 Inactive Tylenol 325 mg tablet RxNorm: 991175 2 Tablet(s) PO Q4H as needed N o Start Date 11/26/2018 Inactive Prilosec 20 mg capsule,delayed release RxNorm: 721369 1 Capsule (s) PO BID No Start Date 09/08/2014 Inactive Tylenol 8 Hour 650 mg tablet,extended release RxNorm: 932219 0 1 Tablet(s) PO Q4H as needed No Start Date 11/26/2018 Inactive Vitamin D3 2,000 unit tablet RxNorm: 586402 1 Tablet(s) PO QD No St art Date 02/22/2017 Inactive nystatin 100,000 unit/gram topical powder RxNorm: 157590 1 Appl ication TOP BID No Start Date 08/15/2017 Inactive morphine 20 mg/5 mL (4 mg/mL) oral solution RxNorm: 121654 .25 Milliliter(s) PO Q4H as needed No Start Date 09/24/2018 Inactive Forteo 20 mcg/dose (750 mcg/3 mL) Sub-Q Pen Injector RxNorm: 143 5115 SQ QD No Start Date 01/21/2010 Inactive ciprofloxacin 0.3 % Eye Drops RxNorm: 475955 2 Drop(s) OPH TID to affected eye No Start Date 08/23/2012 Inactive bisacodyl 5 mg tablet RxNorm: 991340 1 Tablet(s) PO BID No Start Da te 02/11/2016 Inactive Avosil 2 %-0.2 % topical ointment RxNorm: 1 Appl ication TOP Q8H as needed to burn sites No Start Date 11/26/2018 Inactive Milk of Magnesia 800 mg/5 mL oral suspension RxNorm: 882095 Milliliter(s) PO as needed No Start Date 06/20/2018 Inactive Atarax 25 mg tablet RxNorm: 782213 1 Tablet(s) PO Q4H prn itchi ng/hives No Start Date 08/24/2011 Inactive Adderall XR 30 mg 24 hr Cap RxNorm: 390528 1 Capsule(s) PO QAM No S tart Date 07/26/2010 Inactive Prevacid 30 mg Cap RxNorm: 997922 1 Capsule(s) PO QD No Start Date Inactive Vitamin C 500 mg tablet RxNorm: 136886 1 Tablet(s) PO BID No Start Date 07/11/2016 Inactive Vistaril 25 mg capsule RxNorm: 128875 1 Capsule(s) PO Q4H PRN No St art Date 03/02/2010 Inactive tramadol 50 mg tablet RxNorm: 836961 1 Tablet(s) PO TID as need ed for pain No Start Date 01/21/2013 Inactive Multivitamin & Mineral Formula tablet RxNorm: 1 Tablet(s) PO Q D No Start Date 06/22/2018 Inactive hydrocodone 5 mg-acetaminophen 325 mg tablet RxNorm: 829969 1 Tablet(s) PO Q4H as needed for pain No Start Date 06/24/2019 Inactive Multivitamin & Mineral Formula Oral RxNorm: Oral No Start Da te 03/02/2010 Inactive Miralax 17 gram oral powder packet RxNorm: 055927 17 Gr am(s) PO QPM for constipation No Start Date 02/25/2015 Inactive Percocet 5 mg-325 mg tablet RxNorm: 4669082 1-2 Tablet(s) PO Q4H as needed No Start Date 09/24/2018 Inactive triamcinolone acetonide 0.1 % topical cream RxNorm: 2351821 1 Application TOP TID to affected area as needed No Start Date 12/12/2013 Inactive rabeprazole 20 mg tablet,delayed release RxNorm: 111727 1 Table t(s) PO QD No Start Date 09/24/2018 Inactive Protonix 40 mg tablet,delayed release RxNorm: 684222 1 Tablet(s ) PO QD No Start Date 10/18/2012 Inactive Mobic 7.5 mg Tab RxNorm: 494801 1 Tablet(s) PO BID No Start Date 10/06 Inactive Sinemet CR 50 mg-200 mg Tab RxNorm: 107984 1 Tablet(s) PO QD No Sta rt Date 03/02/2010 Inactive Adderall XR 20 mg 24 hr Cap RxNorm: 694117 2 Capsule(s) PO QD No St art Date 02/02/2010 Inactive Medication Administered No Medication Administered data Immunizations No Immunization data Results Observation Observation Code Item Item Code Result Date S [facility] Location COMPLETE BLOOD COUNT [id number] WBC 7.3 10e9/L 05/29/20 12 Unknown COMPLETE BLOOD COUNT [id number] RBC 5.20 10e12/L 2011 Unknown COMPLETE BLOOD COUNT [id number] HGB 15.3 g/dL 2 Unknown COMPLETE BLOOD COUNT [id number] HCT DET 45.9 % 2 Unknown COMPLETE BLOOD COUNT [id number] MCV 88.3 fL 2 Unknown COMPLETE BLOOD COUNT [id number] MCH 29.4 pg 2 Unknown COMPLETE BLOOD COUNT [id number] MCHC 33.3 g/dL 2 Unknown COMPLETE BLOOD COUNT [id number] PLT 341 10e9/L 05/29/20 12 Unknown COMPLETE BLOOD COUNT [id number] MPV 10.1 fL 2 Unknown COMPLETE BLOOD COUNT [id number] ASHLEY % 63.2 % 2 Unknown COMPLETE BLOOD COUNT [id number] LY % 27.4 % 2 Unknown COMPLETE BLOOD COUNT [id number] MON % 7.6 % 2 Unknown COMPLETE BLOOD COUNT [id number] EOS % 1.5 % 2 Unknown COMPLETE BLOOD COUNT [id number] BASO % 0.3 % 2 Unknown COMPLETE BLOOD COUNT [id number] RDW 13.6 % 2 Unknown COMPLETE BLOOD COUNT [id number] ABS ASHLEY 4.61 10e9/L 012 Unknown COMPLETE BLOOD COUNT [id number] ABS LYMPH 2.00 10e9/L 012 Unknown COMPLETE BLOOD COUNT [id number] ABS MONO 0.55 10e9/L 012 Unknown COMPLETE BLOOD COUNT [id number] ABS EOS 0.11 10e9/L 012 Unknown COMPLETE BLOOD COUNT [id number] ABS BASO 0.02 10e9/L 012 Unknown COMPLETE BLOOD COUNT [id number] RDW-SD 43.5 fL 2 Unknown THYROID STIMULATING HORMONE 39339 TSH 1.487 uIU/ML 05/29/2012 Unknown GFR CALC [id number] GFR AA >60 ML/MIN 05/29/2012 Unknown GFR CALC [id number] GFR NON-AA >60 ML/MIN 05/29/2012 Unknown FREE T4 81261 FREE T4 1.20 NG/DL 05/29/2012 Unknown COMPREHENSIVE METABOLIC 95981 AST 17 U/L 2011 Unknown COMPREHENSIVE METABOLIC 65699 ALT 16 IU/L 2011 Unknown COMPREHENSIVE METABOLIC 49503 BUN 9 MG/DL 2011 Unknown COMPREHENSIVE METABOLIC 52852 ALBUMIN 4.1 GM/DL 2011 Unknown COMPREHENSIVE METABOLIC 22052 CHLORIDE 106 MMOL/L 05/29 Unknown COMPREHENSIVE METABOLIC 72253 BILI TOT 0.4 MG/DL 2011 Unknown COMPREHENSIVE METABOLIC 52470 ALK PHOS 87 U/L 2011 Unknown COMPREHENSIVE METABOLIC 50587 SODIUM 142 MMOL/L 05/29 Unknown COMPREHENSIVE METABOLIC 53927 CREATININE 0.79 MG/DL 05/09 Unknown COMPREHENSIVE METABOLIC 18460 CALCIUM 9.2 MG/DL 2011 Unknown COMPREHENSIVE METABOLIC 35570 POTASSIUM 3.6 MMOL/L 05/29 Unknown COMPREHENSIVE METABOLIC 34687 PROT TOT 6.5 GM/DL 2011 Unknown COMPREHENSIVE METABOLIC 86038 Glucose 78 MG/DL 2011 Unknown COMPREHENSIVE METABOLIC 83769 BICARB 27 MMOL/L 2011 Unknown COMPREHENSIVE METABOLIC 77239 ANION GAP 9 MEQ/L 2011 Unknown Procedures Procedure Codes Date PPPS, subseq visit CPT-4: G0439 08/03/2018 PPPS, subseq visit CPT-4: G0439 07/12/2016 CUR TOBACCO NON-USER CPT-4: G8457 04/15/2015 URINALYSIS NONAUTO W/O SCOPE CPT-4: 02237 07/05/2012 URINE CULTURE/ COLONY COUNT CPT-4: 88310 07/05/2012 PRESCRIP TRANSMIT VIA ERX SY CPT-4: G8553 07/05/2012 ROUTINE VENIPUNCTURE CPT-4: 61103 05/29/2012 ASSAY OF FREE THYROXINE CPT-4: 08038 05/29/2012 ASSAY THYROID STIM HORMONE CPT-4: 37695 05/29/2012 COMPREHEN METABOLIC PANEL CPT-4: 11675 05/29/2012 COMPLETE CBC W/AUTO DIFF WBC CPT-4: 90191 05/29/2012 PRESCRIP TRANSMIT VIA ERX SY CPT-4: G8553 05/29/2012 PRESCRIP TRANSMIT VIA ERX SY CPT-4: G8553 02/02/2012 PRESCRIP TRANSMIT VIA ERX SY CPT-4: G8553 05/27/2011 PRESCRIP TRANSMIT VIA ERX SY CPT-4: G8553 02/22/2011 SERVICE REQUIRED FOR PMD CPT-4: G0372 06/15/2010 ROUTINE VENIPUNCTURE CPT-4: 32629 10/20/2009 Vital Signs Date Vital 10/01/2019 Blood [...] 1: 114/66 Code: 8480-6 BMI: 25.8 Code: 67111-1 Heart Rate 1: 72 bpm Height: 5'2" [...] 1: 122/80 Code: 8480-6 BMI: 24.9 Code: 62348-6 Heart Rate 1: 100 bpm Height: 5'2" Respiratory Rate: 20 bpm Temperature: 37 .1 (C) / 98.8 (F) Weight: 136 lbs 11/03/2011 Blood Pressure 1: 104/60 Code: 8480-6 BMI: 24.1 Code: 25676-8 Heart Rate 1: 88 bpm Height: 5'2" Respiratory Rate: 20 bpm Temperature: 36 .6 (C) / 97.8 (F) Weight: 132 lbs 08/25/2011 Blood Pressure 1: 128/86 Code: 8480-6 BMI: 24.9 Code: 25685-5 Heart Rate 1: 76 bpm Height: 5'2" Respiratory Rate: 20 bpm Temperature: 36 .2 (C) / 97.2 (F) Weight: 136 lbs 05/27/2011 Blood Pressure 1: 130/90 Code: 8480-6 BMI: 25.1 Code: 20856-0 Heart Rate 1: 68 bpm Height: 5'2" [...] 1: 114/70 Code: 8480-6 BMI: 22.9 Code: 40801-9 Heart Rate 1: 92 bpm Height: 5'2" [...] N/V Encounters Encounter Performer Location Codes Date ([id number]) OFFICE/OUTPATIENT VISIT EST 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] Diagnosis: Muscle weakness (generalized)[ICD10: M62.81] Cherri HOLGUIN [employer] [facility] CPT-4: 48191 10/01/2019 ([id number]) OFFICE/OUTPATIENT VISIT EST Diagnosis: Personal history of malignant neoplasm of brain[ICD10: Z85.841] Diagnosis: Muscle weakness (generalized)[ICD10: M62.81] Diagnosis: Hemiplegia, unspecified affecting left dominant side[ICD10: G81.92] Diagnosis: Contracture, 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] Cherri HOLGUIN DO [facility] CPT-4: 18091 06/25/2019 ([id number]) OFFICE/OUTPATIENT VISIT EST Diagnosis: Attention and concentration deficit[ICD10: R41.840] Diagnosis: Abnormal weight loss[ICD10: R63.4] Cherri HOLGUIN [facility] CPT-4: 72836 02/05/2019 ([id number]) OFFICE/OUTPATIENT VISIT EST Diagnosis: Attention and concentration deficit[ICD10: R41.840] Cherri HOLGUIN [facility] CPT-4: 49780 12/13/2018 ([id number]) OFFICE/OUTPATIENT VISIT EST Diagnosis: Laceration without foreign body of left upper arm, sequela[ICD10: S41.112S] Diagnosis: Other fatigue[ICD10: R53.83] Cherri HOLGUIN [facility] CPT-4: 78814 11/27/2018 ([id number]) OFFICE/OUTPATIENT VISIT EST Diagnosis: Gastro-esophageal reflux disease without esophagitis[ICD10: K21.9] Diagnosis: Contracture, 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] Diagnosis: Slow transit constipation[ICD10: K59.01] Cherri HOLGUIN DO [facility] CPT-4: 06054 09/25/2018 ([id number]) OFFICE/OUTPATIENT VISIT EST Diagnosis: Gastro-esophageal reflux disease without esophagitis[ICD10: K21.9] Diagnosis: Muscle weakness (generalized)[ICD10: M62.81] Maxine Pee CHERRI HOLGUIN [employer] [facility] CPT-4: 07935 06/22/2018 ([id number]) OFFICE/OUTPATIENT VISIT EST Diagnosis: Gastro-esophageal reflux disease without esophagitis[ICD10: K21.9] Cherri HOLGUIN DO [facility] CPT-4: 79667 04/06/2018 ([id number]) OFFICE/OUTPATIENT VISIT EST Diagnosis: Gastro-esophageal reflux disease without esophagitis[ICD10: K21.9] Maxine HOLGUIN DO [facility] CPT-4: 04971 03/06/2018 ([id number]) OFFICE/OUTPATIENT VISIT EST Diagnosis: 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] Diagnosis: Gastro-esophageal reflux disease without esophagitis[ICD10: K21.9] Diagnosis: Slow transit constipation[ICD10: K59.01] Diagnosis: Primary insomnia[ICD10: F51.01] Cherri HOLGUIN DO [facility] CPT-4: 87205 02/15/2018 ([id number]) OFFICE/OUTPATIENT VISIT EST Diagnosis: Muscle weakness (generalized)[ICD10: M62.81] Diagnosis: Gastro-esophageal reflux disease without esophagitis[ICD10: K21.9] Cherri [facility]IN DO [facility] [facility] CPT-4: 28499 12/12/2017 ([id number]) OFFICE/OUTPATIENT VISIT EST Diagnosis: Nondisplaced fracture of medial malleolus of left tibia, subsequent encounter for closed fracture with delayed healing[ICD10: S82.55XG] Cherri HOLGUIN DO [facility] CPT-4: 65332 10/10/2017 OFFICE/OUTPATIENT VISIT EST Diagnosis: Acute upper respiratory infection, unspecified[ICD10: J06.9] Maxine HOLGUIN DO [facility] CPT-4: 12318 09/19/2017 ([id number]) OFFICE/OUTPATIENT VISIT EST Diagnosis: Muscle weakness (generalized)[ICD10: M62.81] Diagnosis: Other specified disorders of the skin and subcutaneous tissue[ICD10: L98.8] Cherri HOLGUIN DO [facility] CPT-4: 63077 08/04/2017 ([id number]) OFFICE/OUTPATIENT VISIT EST Diagnosis: Unspecified open wound of abdominal wall, left upper quadrant with penetration into peritoneal cavity, sequela[ICD10: S31.601S] Diagnosis: Muscle weakness (generalized)[ICD10: M62.81] Diagnosis: Personal history of malignant neoplasm of brain[ICD10: Z85.841] Cherri HOLGUIN DO [facility] CPT-4: 46272 07/12/2017 ([id number]) OFFICE/OUTPATIENT VISIT EST Diagnosis: Non-pressure chronic ulcer of skin of other sites with unspecified severity[ICD10: L98.499] Diagnosis: Tinea cruris[ICD10: B35.6] Cherri RUSHING [employer] [facility] CPT-4: 15284 05/30/2017 ([id number]) OFFICE/OUTPATIENT VISIT EST Diagnosis: Cellulitis of abdominal wall[ICD10: L03.311] Diagnosis: Cellulitis of chest wall[ICD10: L03.313] Cherri HOLGUIN DO [facility] CPT-4: 79597 05/02/2017 ([id number]) OFFICE/OUTPATIENT VISIT EST Diagnosis: Cellulitis of chest wall[ICD10: L03.313] Diagnosis: Muscle weakness (generalized)[ICD10: M62.81] Cherri HOLGUIN DO [facility] CPT-4: 75029 02/28/2017 ([id number]) OFFICE/OUTPATIENT VISIT EST Diagnosis: Cellulitis of abdominal wall[ICD10: L03.311] Cherri HOLGUIN DO [facility] CPT-4: 25819 12/06/2016 OFFICE/OUTPATIENT VISIT EST Diagnosis: Cutaneous abscess of abdominal wall[ICD10: L02.211] Diagnosis: Cellulitis of abdominal wall[ICD10: L03.311] Cherri HOLGUIN DO [facility] CPT-4: 53307 12/02/2016 ([id number]) OFFICE/OUTPATIENT VISIT EST Diagnosis: Cellulitis of abdominal wall[ICD10: L03.311] Diagnosis: Cutaneous abscess of abdominal wall[ICD10: L02.211] Cherri HOLGUIN DO [facility] CPT-4: 23686 12/01/2016 ([id number]) OFFICE/OUTPATIENT VISIT EST Diagnosis: Cutaneous abscess of abdominal wall[ICD10: L02.211] Diagnosis: Cellulitis of abdominal wall[ICD10: L03.311] Cherri HOLGUIN [facility] CPT-4: 21507 11/30/2016 ([id number]) OFFICE/OUTPATIENT VISIT EST Diagnosis: Muscle weakness (generalized)[ICD10: M62.81] Diagnosis: Slow transit constipation[ICD10: K59.01] Diagnosis: 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, 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] Cherri HOLGUIN [facility] CPT-4: 43939 10/26/2016 ([id number]) OFFICE/OUTPATIENT VISIT EST Diagnosis: Other seborrheic dermatitis[ICD10: L21.8] Cherri HOLGUIN [facility] CPT-4: 66817 09/13/2016 ([id number]) OFFICE/OUTPATIENT VISIT EST Diagnosis: Contracture, 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] Diagnosis: Nicotine dependence, cigarettes, uncomplicated[ICD10: F17.210] Diagnosis: Hemiplegia, unspecified affecting unspecified side[ICD10: G81.90] Diagnosis: Muscle weakness (generalized)[ICD10: M62.81] [facility] 07657 05/11/2016 ([id number]) OFFICE/OUTPATIENT VISIT EST Diagnosis: Muscle weakness (generalized)[ICD10: M62.81] Diagnosis: Abnormal weight loss[ICD10: R63.4] [facility]: 01830 12/23/2015 ([id number]) OFFICE/OUTPATIENT VISIT EST Diagnosis: Torticollis[ICD10: M43.6] Diagnosis: Cervicalgia[ICD10: M54.2] Diagnosis: Basal cell carcinoma of skin, unspecified[ICD10: C44.91] [facility]: 21675 09/23/2015 ([id number]) OFFICE/OUTPATIENT VISIT EST Diagnosis: Constipation[ICD9: 564.00] Diagnosis: MUSCLE WEAKNESS-GENERAL[ICD9: 728.87] Cherri HOLGUIN [facility] CPT-4: 05860 04/15/2015 ([id number]) OFFICE/OUTPATIENT VISIT EST Diagnosis: MALAISE AND FATIGUE[ICD9: 780.79] Diagnosis: 3RD DEGREE BURN[ICD9: 949.3] Cherri HOLGIUN [facility] CPT-4: 16927 01/14/2015 ([id number]) OFFICE/OUTPATIENT VISIT EST Diagnosis: Constipation[ICD9: 564.00] Diagnosis: MUSCLE WEAKNESS-GENERAL[ICD9: 728.87] Diagnosis: 3RD DEGREE BURN[ICD9: 949.3] Cherri JOHNSTONLINE EarlBelkis PERNELL [facility] CPT-4: 01222 10/29/2014 ([id number]) OFFICE/OUTPATIENT VISIT EST Diagnosis: Weakness generalized[ICD9: 780.79] Diagnosis: 3RD DEGREE BURN[ICD9: 949.3] Cherri JOHNSTONLINE [employer] PERNELL [facility] CPT-4: 70629 08/20/2014 ([id number]) OFFICE/OUTPATIENT VISIT EST Diagnosis: 3RD DEGREE BURN[ICD9: 949.3] Diagnosis: DYSPHAGIA NEC[ICD9: 787.29] Cherri SANCHEZQUELINE Martha Partida XENIA [facility] CPT-4: 94774 06/04/2014 ([id number]) OFFICE/OUTPATIENT VISIT EST Diagnosis: 3RD DEGREE BURN[ICD9: 949.3] Diagnosis: Complication of skin graft[ICD9: 996.52] Diagnosis: TOBACCO USE DISORDER[ICD9: 305.1] Cherri Mianrl Franklin [employer] [facility] CPT-4: 58830 05/06/2014 ([id number]) OFFICE/OUTPATIENT VISIT EST Diagnosis: CELLULITIS[ICD9: 682.9] Cherri Pappasrl CHERRI EarlBelkis LAWSON NANNETTE [facility] CPT-4: 00154 08/07/2013 ([id number]) OFFICE/OUTPATIENT VISIT EST Diagnosis: MUSCLE WEAKNESS-GENERAL[ICD9: 728.87] Diagnosis: MALAISE AND FATIGUE[ICD9: 780.79] Diagnosis: ABNORMALITY OF GAIT[ICD9: 781.2] Cherri HOLGUIN DO [facility] CPT-4: 43872 05/23/2013 ([id number]) OFFICE/OUTPATIENT VISIT EST Diagnosis: MALAISE AND FATIGUE[ICD9: 780.79] Diagnosis: MUSCLE WEAKNESS-GENERAL[ICD9: 728.87] Diagnosis: HEMIPLEGIANOS SIDE NOS[ICD9: 342.90] Diagnosis: 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] Cherri HOLGUIN [facility] CPT-4: 75176 04/25/2013 ([id number]) OFFICE/OUTPATIENT VISIT EST Diagnosis: MUSCLE WEAKNESS-GENERAL[ICD9: 728.87] Diagnosis: ABNORMALITY OF GAIT[ICD9: 781.2] Diagnosis: MALAISE AND FATIGUE[ICD9: 780.79] Cherri HOLGUIN [facility] CPT-4: 92985 01/22/2013 OFFICE/OUTPATIENT VISIT EST Diagnosis: MALAISE AND FATIGUE[ICD9: 780.79] Diagnosis: MUSCLE WEAKNESS-GENERAL[ICD9: 728.87] Diagnosis: HEMIPLEGIANOS SIDE NOS[ICD9: 342.90] Diagnosis: ABNORMALITY OF GAIT[ICD9: 781.2] Cherri HOLGUIN [facility] CPT-4: 83845 10/18/2012 OFFICE/OUTPATIENT VISIT EST Diagnosis: ABNORMALITY OF GAIT[ICD9: 781.2] Diagnosis: MALAISE AND FATIGUE[ICD9: 780.79] Diagnosis: MUSCLE WEAKNESS-GENERAL[ICD9: 728.87] Cherri HOLGUIN [facility] CPT-4: 45689 09/25/2012 OFFICE/OUTPATIENT VISIT EST Diagnosis: CERVICALGIA[ICD9: 723.1] Diagnosis: ABNORMALITY OF GAIT[ICD9: 781.2] Diagnosis: MUSCLE WEAKNESS-GENERAL[ICD9: 728.87] Cherri HOLGUIN DO [facility] CPT-4: 44771 08/24/2012 ([id number]) OFFICE/OUTPATIENT VISIT EST Diagnosis: URINARY TRACT INFECTION[ICD9: 599.0] Diagnosis: Altered mental state[ICD9: 780.97] Diagnosis: MUSCLE WEAKNESS-GENERAL[ICD9: 728.87] Diagnosis: HEMIPLEGIANOS SIDE NOS[ICD9: 342.90] Diagnosis: Cervicalgia[ICD9: 723.1] Cherri CARIAS [facility] CPT-4: 14596 07/27/2012 OFFICE/OUTPATIENT VISIT EST Diagnosis: URINARY TRACT INFECTION[ICD9: 599.0] Diagnosis: Weakness generalized[ICD9: 780.79] Diagnosis: FEBRILE ILLNESS[ICD9: 780.60] Diagnosis: Vision disturbance[ICD9: 368.9] Tasneem HOLGUIN [facility] CPT-4: 99751 07/05/2012 OFFICE/OUTPATIENT VISIT EST Diagnosis: CONJUNCTIVITIS NOS[ICD9: 372.30] Diagnosis: MUSCLE WEAKNESS-GENERAL[ICD9: 728.87] Diagnosis: HEMIPLEGIANOS SIDE NOS[ICD9: 342.90] Diagnosis: ABNORMALITY OF GAIT[ICD9: 781.2] [facility]: 53944 05/29/2012 ([id number]) OFFICE/OUTPATIENT VISIT EST Diagnosis: MUSCLE WEAKNESS-GENERAL[ICD9: 728.87] Diagnosis: HEMIPLEGIANOS SIDE NOS[ICD9: 342.90] Diagnosis: ABNORMALITY OF GAIT[ICD9: 781.2] Diagnosis: DYSPEPSIA[ICD9: 536.8] Diagnosis: GERD[ICD9: 530.81] Cherri HOLGUIN [employer] [facility] CPT-4: 33383 02/02/2012 ([id number]) OFFICE/OUTPATIENT VISIT EST Diagnosis: MUSCLE WEAKNESS-GENERAL[ICD9: 728.87] Diagnosis: ABNORMALITY OF GAIT[ICD9: 781.2] Diagnosis: GERD[ICD9: 530.81] Cherri HOLGUIN [employer] [facility] CPT-4: 37215 11/03/2011 OFFICE/OUTPATIENT VISIT EST Diagnosis: MUSCLE WEAKNESS-GENERAL[ICD9: 728.87] Diagnosis: ABNORMALITY OF GAIT[ICD9: 781.2] Diagnosis: VOMITING ALONE[ICD9: 787.03] Diagnosis: GERD[ICD9: 530.81] Cherri HOLGUIN [facility] CPT-4: 90908 08/25/2011 OFFICE/OUTPATIENT VISIT EST Diagnosis: CONJUNCTIVITIS NOS[ICD9: 372.30] Cherri HOLGUIN DO [facility] CPT-4: 71365 05/27/2011 OFFICE/OUTPATIENT VISIT EST Diagnosis: MUSCLE WEAKNESS-GENERAL[ICD9: 728.87] Diagnosis: ABNORMALITY OF GAIT[ICD9: 781.2] Cherri HOLGUIN DO [facility] CPT-4: 31040 04/15/2011 OFFICE/OUTPATIENT VISIT EST Diagnosis: MALAISE AND FATIGUE[ICD9: 780.79] Diagnosis: MUSCLE WEAKNESS-GENERAL[ICD9: 728.87] Diagnosis: DEPRESSIVE DISORDER NEC[ICD9: 311] Diagnosis: ABNORMALITY OF GAIT[ICD9: 781.2] Cherri HOLGUIN DO [facility] CPT-4: 31742 03/22/2011 OFFICE/OUTPATIENT VISIT EST Cherri DORANTES DO [facility] CPT- 4: 54898 02/22/2011 ([id number]) OFFICE/OUTPATIENT VISIT EST Cherri HOLGUIN DO [facility] CPT-4: 95664 01/26/2011 ([id number]) OFFICE/OUTPATIENT VISIT, EST Cherri HOLGUIN DO [facility] CPT-4: 34250 06/15/2010 ([id number]) OFFICE/OUTPATIENT VISIT, EST Cherri HOLGUIN DO [facility] CPT-4: 81805 05/04/2010 ([id number]) OFFICE/OUTPATIENT VISIT, EST Cherri HOLGUIN DO [facility] CPT-4: 67567 03/03/2010 ([id number]) OFFICE/OUTPATIENT VISIT, EST Cherri HOLGUIN DO [facility] CPT-4: 90683 10/20/2009 Plan of Care Planned Activity Notes [...] ICD-10 : M62.81 06/25/2019 Appointment: Cherri Holguintel: [address] [place], [place] [phone] [place] Confirmed with nara. FOLLOW UP 06/25/2019 [...] ICD-10 : R63.4 02/05/2019 Appointment: Cherri Holguintel: [address] [place], [place] [phone] [place] Confirmed with Nara Hankins 02/02 @ 11:07 am FOL LOW UP 02/05/2019 Appointment: Cherri Holguintel: [address] [place], [place] [phone] [place] NO SHOW 01/24/2019 Visit Diagnosis Plan: Attention and concentration defi cit Discussion: Trial of strattera 10mg daily for 1 week then 25mg daily Recheck 6 weeks Stimulants have caused weight loss in past as patient is also poor, picky eater so with the stimulants her appetite worsens even more ICD-9 : 799.51 ICD-10 : R41.840 12/13/2018 Appointment: Cherri Holguintel: [address] [place], [place] [phone] [place] confirmed with Morena FOLLOW UP 12/13/2018 [...] R53.83 11/27/2018 Appointment: Cherri Holguin [facility]el[facility] [phone] [facility] [place] confirmed with Karlee FOLLOW UP 11/27/2018 [...] M24.542 09/25/2018 Appointment: Cherri Holguin WPtel: [phone] [facility] [place] FOLLOW UP 09/25/2018 Visit Diagnosis Plan: Encounter for othe r screening for malignant neoplasm of breast Discussion: mammogram order written to thierry stacy. ICD-9 : V76.10 ICD-10 : Z12.39 08/03/2018 Visit Diagnosis Plan: Encounter for screening [...] 08/03/2018 Visit Diagnosis Plan: Encounter for [facility] adult medical examination with abnormal findings Discussion: see other plans. follow up i n 3 months. ICD-9 : V70.0 ICD-10 : Z00.01 08/03/2018 Appointment: Maxine Glasgow [address] [facility] Annual Well Visit 08/03/2018 Visit Diagnosis Plan: [...] : K21.9 06/22/2018 Appointment: Maxine Glasgow [address] [facility] H & P 06/22/2018 Visit Diagnosis Plan: Gastro-esophageal reflux disease without esophagitis Discussion: Continue aciphex at 20m po daily Recheck 2mos ICD-9 : 530.81 ICD-10 : K21.9 04/06/2018 Appointment: Cherri Holguin WPtel: [address] [place] [address] FOLLOW UP 04/06/2018 Patient Education: Patient Medication Summary Completed 04/06/2018 Appointment: Cherri Holguin WPtel: [address] [place] [address] RESCHEDULED 03/07/2018 Visit Diagnosis Plan: Gastro-esophageal reflux disease without esophagitis Discussion: patient had aciphex and prevacid on med list. order written out on patient's list to only give the aciphex as prescribed and not both. follow up in one month to assess medication efficacy and constipation. ICD-9 : 530.81 ICD-10 : K21.9 03/06/2018 Appointment: Maxine Glasgow [address] [facility] FOLLOW UP 03/06/2018 Patient Education: Patient Medication Summary Completed 03/06/2018 Visit Diagnosis Plan: Primary insomnia Discussion: Add elavil 10mg po q HS Sister to let us know in 2 weeks if helping ICD-9 : 780.52 ICD-10 : F51.01 02/15/2018 Visit Diagnosis Plan: Slow transit constipation [...] ICD-9 : 530.81 ICD-10 : K21.9 02/15/2018 Appointment: Cherri Holguin WPtel: [address] [place], [place] [phone] [place] FOLLOW UP 02/15/2018 Patient Education: Patient Medication Summary Completed 02/15/2018 Appointment: Cherri Holguin WPtel: [address] [place], [place] [phone] [place] [address] transportation called, stating that the patient is still eating lunch, and will not be able to make her appointment.She is rescheduled for Tuesday ~ NO SHOW 02/13/2018 Visit Diagnosis Plan: Gastro-esophageal [...] : M62.81 12/12/2017 Appointment: Cherri Holguin WPtel: [address] [place], [place] [phone] [place] FOLLOW UP 12/12/2017 Patient Education: Patient Medication Summary Completed 12/12/2017 Visit Diagnosis Plan: Nondisplaced fract ure of medial malleolus of left tibia, subsequent encounter for closed fracture with delayed healing Discussion: Add miacalcin nasal spray for next 2mos Fwup with ortho Follow Up: 2 months ICD-9 : V54.16 ICD-10 : S82.55XG 10/10/2017 Appointment: Cherri Holguin WPtel: [address] [place] [address] [place] FOLLOW UP 10/10/2017 Patient Education: Patient Medication Summary Completed 10/10/2017 Appointment: Cherri Holguin WPtel: [address] [place] [address] [place] RESCHEDULED 10/04/2017 Referral: Alvarado Mercado WPtel: [address] [address] [place] Referral Initiated 10/04/2017 Visit Diagnosis Plan: Acute upper respiratory infectio n, unspecified Discussion: continue with tessalon perles as needed. increase fluids. notify if worsening symptoms including shortness of breath or fever. call or rtc later this week if no improvement. instructed patient to perform deep breathing exercises at home. ICD-9 : 465.9 ICD-10 : J06.9 09/19/2017 Appointment: Maxine Glasgow [address] [place] [address] ACUTE ILLNESS 09/19/2017 Patient Education: Patient Medication Summary Completed 09/19/2017 Appointment: Cherri Holguin WPtel: [address] [place] [address] [place] CANCELED 08/16/2017 Visit Diagnosis Plan: Muscle [...] : L98.8 08/04/2017 Appointment: Cherri Holguin WPtel: [address] [place], [place] [phone] [place] FOLLOW UP 08/04/2017 Patient Education: Patient [...] : Z85.841 07/12/2017 Appointment: Cherri Holguin WPtel: [address] [place] [address] Follow Up 07/12/2017 Patient Education: Patient Medication [...] : L98.499 05/30/2017 Appointment: Cherri Holguin WPtel: [address] [place], [place] [phone] FOLLOW UP 05/30/2017 Patient Education: Patient Medication Summary Completed 05/30/2017 Visit Diagnosis Plan: Cellulitis of abdominal wall Dis cussion: Finish keflex Referral to wound care ICD-9 : 682.2 ICD-10 : L03.311 05/02/2017 Appointment: Cherri Holguin WPtel: [address] [place] [address] [place] FOLLOW UP 05/02/2017 Patient Education: Patient Medication Summary Completed 05/02/2017 Referral: Remigio Valdes WPtel: [address] [place], [place] [phone] [place] Referral Initiated 04/05/2017 Visit Diagnosis Plan: Cellulitis of chest wall Discuss ion: Keflex x1 week Continue daily dressing changes ICD-9 : 682.2 ICD-10 : L03.313 02/28/2017 Visit Diagnosis Plan: Muscle weakness (generalized) Di scussion: Stable Follow Up: 2 months ICD-9 : 728.87 ICD-10 : M62.81 02/28/2017 Appointment: Cherri Holguintel: [facility] 02/24 confirmed~sl FOLLOW UP 02/28/2017 Patient Education: Patient Medication Summary Completed 02/28/2017 Visit Diagnosis Plan: Cellulitis of abdominal wall Dis cussion: Healing and improving so will finish all of clindamycin and monitor wounds for any worsening or recurrence ICD-9 : 682.2 ICD-10 : L03.311 12/06/2016 Appointment: Cherri Holguintel: [facility] WORK IN 12/06/2016 Patient Education: Patient Medication Summary Completed 12/06/2016 Visit Diagnosis Plan: Cutaneous abscess of abdominal w all Discussion: Continue clindamycin and dressing changes To ER this weekend if worsens Fwup with me in 4 days for recheck ICD-9 : 682.2 ICD-10 : L02.211 12/02/2016 Appointment: Cherri Holguintel: [phone] [facility] FOLLOW UP 12/02/2016 Patient Education: Patient Medication [...] L03.311 12/01/2016 Appointment: Cherri Holguin WPtel: [phone] [facility] [place] WORK IN 12/01/2016 Patient Education: Patient Medication Summary Completed 12/01/2016 Visit Diagnosis Plan: Cutaneous abscess of abdominal w all Discussion: Copious amounts of pus expressed until bloody discharge Start clindamycin Recheck tomorrow Erythema outline marked Follow Up: 1 days ICD-9 : 682.2 ICD-10 : L02.211 11/30/2016 Appointment: Cherri Holguin WPtel: [address] [place], [place] [phone] 11/29 confirmed`sl FOLLOW UP 11/30/2016 Patient Education: Patient Medication Summary Completed 11/30/2016 Appointment: Cherri Holguin WPtel: [address] [place], [place] [phone] 11/10 scalp looks ok will discuss at [...] : T85.09XS 10/26/2016 Appointment: Cherri Holguin WPtel: [facility] ACUTE ILLNESS 10/26/2016 Patient Education: Patient Medication Summary Completed 10/26/2016 Patient Education: Patient Medication Summary Completed 10/21/2016 Care Plan: CT HEAD/BRAIN W/O DYE LOINC : 93274-8 Pending 10/21/2016 Visit Diagnosis Plan: Other seborrheic dermatitis Disc ussion: Topical ketoconazole shampoo alternating with selsun blue Follow Up: 2 months ICD-9 : 706.3 ICD-10 : L21.8 09/13/2016 Appointment: Cherri Holguin WPtel: [address] [place] [address] 09/09 confirm`sl FOLLOW UP 09/13/2016 Patient Education: Patient Medication Summary Completed 09/13/2016 Appointment: Cherri Holguin WPtel: [address] [place] [address] [place] CANCELED 07/13/2016 Visit Plan: Low-dose CT scan-45 PPD of C hest Check hemoccult Discussed updated CT of head to recheck meningioma Zostavax vaccine Will obtain last colonoscopy results Update lab 07/12/2016 Appointment: Cherri Holguin WPtel: [address] [place] [address] 07/08 confirmed~sl Annual Well Visit 07/12/2016 Patient Education: Patient Medication Summary Completed 07/12/2016 Visit Plan: Gets teeth extracted next mo nth then getting fitted for dentures so some of poor appetite is due to inability to eat certain things Continue current meds Defers flu shot 05/11/2016 Appointment: Cherri Holguin WPtel: [address] [place] [address] 05/10 confirmed~sl FOLLOW UP 05/11/2016 Patient Education: Patient Medication Summary Completed 05/11/2016 Visit Plan: Discussed nutrition and poss ible shakes as supplement until gets teeth completely pulled and fitted for full dentures Continue current meds Did have right scalp lesion removed 12/23/2015 Appointment: Cherri Hloguin WPtel: [address] [place] [address] 12/21 confirmed-sp FOLLOW UP 12/23/2015 Patient Education: Patient Medication Summary Completed 12/23/2015 Referral: Tabitha Messer WPtel: [facility] [address] [address] [place] Spoke with Kayli at [facility] and gave her appt information Initiated 10/07/2015 Visit Plan: Start PT for ROM of neck Dis cussed milkshake in place of meal if does not eat at least 20% of meal--patient states she wants to lose weight and does not like the food served there See dermatology for removal of scalp lesion 09/23/2015 Appointment: Cherri Holguin WPtel: [address] [place], [place] [phone] 09/22/15 appt confirmed with Amber at [facility] cn FOLLOW UP 09/23/2015 Patient Education: Patient Medication Summary Completed 09/23/2015 Visit Plan: Stop miralax and senokot-s S tart dulcolax daily Patient asking for PT and OT again but admits they don't really help/she doesn't gain much from them 04/15/2015 Appointment: Cherri Holguin WPtel: [address] [place] [address] 04/11 confirmed with [facility] cn FOLLOW UP 04/15/2015 Patient Education: Patient Medication Summary Completed 04/15/2015 Visit Plan: Check CBC, CMP, TSH, free T4 , Vit D Continue current meds 01/14/2015 Appointment: Cherri Holguin WPtel: [address] [place] [address] ACUTE ILLNESS 01/14/2015 Patient Education: Patient Medication Summary Completed 01/14/2015 Visit Plan: Change to Senokot-S 2 po BID Add miralax Has been released by burn center for now 10/29/2014 Appointment: Cherri Holguin WPtel: [address] [place], [place] [phone] 10/28 with Madiha FOLLOW UP 10/29/2014 Patient Education: Patient Medication Summary Completed 10/29/2014 Visit Plan: Patient is wheelchair bound now Continue current meds Patient following with [facility] at [facility] end of 08/20/2014 Appointment: Cherri Holguin WPtel: [address] [place], [place] [phone] MLP rescheduled due to cold weather 08/19 message with Madiha at [facility] FOLLOW U P 08/20/2014 Patient [...] in [place] 06/04/2014 Appointment: Cherri Holguin WPtel: [address] [place], [place] [phone] FOLLOW UP 06/04/2014 Patient Education: Patient Medication Summary Completed 06/04/2014 Visit Plan: Patient sees burn center nex t week Explained importance of taking nutren routinely as needs nutrition Increase prilosec to 20mg po BID Smoking Cessation 05/06/2014 Appointment: Cherri Holguin WPtel: [address] [place], [place] [phone] 05/03 vm on patient phone 05/03 message with [facility] L [facility] Follow Up 05/06/2014 Patient Education: Patient Medication Summary Completed 05/06/2014 Visit Plan: Finish abx Brian wrap to left LE and elevate 08/07/2013 Appointment: Cherri Holguin WPtel: [address] [place], [place] [phone] Urgent/Quick Care Follow Up 07/10 Patient Education: Patient Medication Summary Completed 08/07/2013 Appointment: Cherri Holguin WPtel: [address] [place] [phone] 07/18 appointment confirmed with patient 07/19 NO SHOW FOLLOW UP 07/19/2013 Visit Plan: Continue current meds Contin ue PT 05/23/2013 Appointment: Cherri Holguin WPtel: [address] [place] [phone] 05/22 vm...appt confirmed FOLLOW UP 2012 Patient Education: Patient Medication Summary Completed 05/23/2013 Visit Plan: Long discussion about need f or 24hr care Pt wants to go home 04/25/2013 Appointment: Cherri Holguintel: [address] [place], [place] [phone] Appt confirmed with Augusto at [facility] Follow Up 04/25/2013 Patient Education: Patient Medication Summary Completed 04/25/2013 Appointment: Cherri Holguin WPtel: [address] [place], [place] [phone] 04/20 message left at [facility] FOLLOW UP 04/23/2013 Visit Plan: Continue current meds 01/22/2013 Appointment: Cherri Holguin WPtel: [address] [place] [phone] 01/22 vm left FOLLOW UP 01/22/2013 Patient Education: Patient Medication Summary Completed 01/22/2013 Appointment: Cherri Holguin WPtel: [phone] [facility] 11/20 left message...patient called in a t 10:00am and said she was unable to get to her car. She rescheduled for 11/27 11am 11/24 left message 11/29 called to confirm, patient cancell ed due to no ride from [facility]. patient will call [facility] and see when they can bring her and then call us to schedule FOLLOW UP 11/30/2012 Visit Plan: Going to go home at the end of week with caregiver Continue current meds 10/18/2012 Appointment: Cherri Holguin W[facility]el[facility] [phone] [id number] 10/17 appt confirmed with Reyna FOLLOW UP 10/18/2012 Patient Education: Patient Medication Summary Completed 10/18/2012 Visit Plan: Continue and finish PT Sultana devorahe current meds Fwup October 19 or --pts 100 days is up October 21 09/25/2012 Appointment: Cherri Holguin WPtel: [phone] [place], [place] [id number] [place] worked in since retirement just droppe d her off. She was on shedule at one point but showed it was cancelled WORK IN Appointment: Cherri Holguin WPtel: [address] [place], [place] [phone] 07/17 Cancelled 09/25 Appt - Patient has appointments on 07/08 & 07/27 FOLLOW UP 09/25/2012 Patient Education: Patient Medication Summary Completed 09/25/2012 Visit Plan: Continue current meds Pt wan ts to go home when her 100 days are up 08/24/2012 Appointment: Cherri Holguin WPtel: [address] [place], [place] [phone] FOLLOW UP 08/24/2012 Patient Education: Patient Medication Summary Completed 08/24/2012 Visit Plan: DC tramadol Repeat UA and ch edu UDS Start PT for neck Discussed neurology eval, but pt has been to several in past and even [facility] 07/27/2012 Appointment: Cherri Holguin WPtel: [address] [place], [place] [phone] FOLLOW UP 07/27/2012 Patient Education: Patient Medication Summary Completed 07/27/2012 Appointment: Cherri Holguin WPtel: [address] [place], [place] [id number] 07/17 - left message..07/17 left message with Antonella at [facility] pt has appt tomorrow and on I think the 07/18 appt was scheduled prior to hospitalization. 07/18 no showed. just entered retirement so no show is forgiven FOLLOW UP 07/18/2012 Appointment: Tasneem Esquivel WPtel: [address] [place], [place] [phone] ACUTE ILLNESS 07/05/2012 Patient Education: Patient Medication Summary Completed 07/05/2012 Appointment: Cherri Holguin WPtel: [phone] FOLLOW UP 05/29/2012 Patient Education: Patient Medication Summary Completed 05/29/2012 Appointment: Cherri Holguin WPtel: [address] [place] [address] FOLLOW UP 02/02/2012 Patient Education: Patient Medication Summary Completed 02/02/2012 Visit Plan: Continue current meds Check CBC, CMP, TSH, Free T4, B12 11/03/2011 Appointment: Cherri Holguin WPtel: [address] [place] [address] FOLLOW UP 11/03/2011 Patient Education: Patient Medication Summary Completed 11/03/2011 Visit Plan: Adderall refilled Continue c urrent meds 08/25/2011 Appointment: Cherri Holguin WPtel: [address] [place] [address] FOLLOW UP 08/25/2011 Patient Education: Patient Medication Summary Completed 08/25/2011 Appointment: Cherri Holguin WPtel: [address] [place] [address] Appointment was confirmed. FOLLOW UP 08/16 Visit Plan: Esther is eye doctor. Will u se eye drop.(Cipro as she claims allergy (nausea). Pt. is accompanied by "grounds keepers" from [facility]. Written instructions given for pt. to be seen in follow up by Esther. Written RX also given to pt. for cipro eye drops. [facility] Appointment: Tasneem Esquivel WPtel: [address] [place] [phone] ACUTE ILLNESS 05/27/2011 Patient Education: Patient Medication Summary Completed 05/27/2011 Visit Plan: Continue increased dose of A dderall 04/15/2011 Appointment: Cherri Holguin WPtel: [address] [place] [address] FOLLOW UP 04/15/2011 Patient Education: Patient Medication Summary Completed 04/15/2011 Appointment: Cherri Holguin WPtel: [address] [place], [place] [phone] FOLLOW UP 03/22/2011 Patient Education: Patient Medication Summary Completed 03/22/2011 Appointment: Cherri Holguin WPtel: [address] [place], [place] [phone] FOLLOW UP 02/25/2011 Visit Plan: Trial of Wellbutrin XL 150mg q AM 02/22/2011 Appointment: Cherri Holguin WPtel: [address] [place], [place] [phone] FOLLOW UP 02/22/2011 Patient Education: Patient Medication Summary Completed 02/22/2011 Visit Plan: Continue PT Add Cymbalta 30m g daily 01/26/2011 Appointment: Cherri Holguin WPtel: [address] [place], [place] [phone] FOLLOW UP 01/26/2011 Patient Education: Patient Medication Summary Completed 01/26/2011 Visit Plan: Cont current meds and PT Exa m for Power chair completed Adderall rx refilled 06/15/2010 Appointment: Cherri Holguin WPtel: [address] [place], [place] [phone] ESTABLISHED PATIENT 06/15/2010 Patient Education: Patient Medication Summary Completed 06/15/2010 Visit Plan: To rehab today for PT/OT--I will follow on rehab unit 05/04/2010 Appointment: Cherri Holguin WPtel: [address] [place], [place] [phone] FOLLOW UP 05/04/2010 Patient Education: Patient Medication Summary Completed 05/04/2010 Visit Plan: Cont PT Cont Forteo Long dis cussion about living home--will discuss with PT when finishes this session 03/03/2010 Appointment: Cherri Holguin WPtel: [address] [place], [place] [phone] FOLLOW UP 03/03/2010 Patient Education: Patient Medication Summary Completed 03/03/2010 Visit Plan: EGD by Dr. Dang Pt agrees to restart Forteo 10/20/2009 Appointment: Cherri Holguin WPtel: [id number] FOLLOW UP 10/20/2009 Patient Education: Patient Medication Summary Completed 10/20/2009 Referral: Antonio Gandhi WPtel: [phone] [id number] [place] Referral Initiated Instructions Comment . Low-dose [...] meds Patient following with [facility] end of October . Patient is [...] been to several in past and even [facility] . Continue current meds Check CBC, CMP, TSH, Free T4, B12 . Adderall refilled Continue current meds . 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 Will use eye bj p.(Cipro as she claims allergy (nausea). Pt. is accompanied by "grounds keepers" from [facility]. Written instructions given for [...]
--- OUTSIDE RECORDS SUMMARY | 2020-03-05 20:53 | XMS REPORT | CCD ---
Author Author Rosario Holguin D.O. Organization [facility] Address [address] [place] [address] Phone Care Team Providers Care Roll Finisher Name Role Phone Cherri Holguin D.O., PP Unavailable CCM Unavailable Summary Purpose Interface Exchange Insurance Providers Payer name Policy type / Coverage type Covered republican ID Effective Begin Date Effective End Date WPS MEDICARE PART B [place] Medicare Part B [id number] Unknown AARP Medicare Part B [id number] Unknown Family History Family History data not found Social History Social History Element Codes Description Effective Dates Tobacco history SNOMED CT: 8851555 Former smoker 04/15/2015 Allergies, Adverse Reactions, Alerts [...] B-12) 1,000 mcg/mL injection solution Rx Norm: 712112 1 Milliliter(s) Intramuscular every 2 weeks 06/26/2019 09/24/2019 Inacti ve cyanocobalamin (vit B-12) 1,000 mcg/mL injection solution Rx Norm: 215628 1 Milliliter(s) Intramuscular every 2 weeks 06/26/2019 06/25/2019 Inacti ve bisacodyl 10 mg rectal suppository RxNorm: 132573 1 Sup pository Rectal QD as needed 05/10/2019 No Stop Date Active glycerin (adult) rectal suppository RxNorm: 1078117 1 Suppositor y RTL BIW 07/25/2018 10/22/2018 Inactive rabeprazole 20 mg tablet,delayed release RxNorm: 206695 1 Table t(s) PO QD 03/01/2018 05/29/2018 Inactive replaces lansoprazol e Adderall XR 10 mg capsule,extended release RxNorm: 155447 1 Cap teresa(s) PO QAM 10/20/2017 12/19/2017 Inactive Tessalon Perles 100 mg capsule RxNorm: 776933 1 Capsule (s) PO TID as needed for cough 09/16/2017 09/30/2019 Inactive Cymbalta 30 mg capsule,delayed release RxNorm: 724947 1 Capsule (s) PO QD 08/17/2017 No Stop Date Active nystatin 100,000 unit/gram topical powder RxNorm: 338434 1 Appl ication TOP BID 08/16/2017 02/14/2018 Inactive Adderall XR 10 mg capsule,extended release RxNorm: 771932 1 Cap teresa(s) PO QAM 08/11/2017 09/09/2017 Inactive Adderall XR 10 mg capsule,extended release RxNorm: 692531 1 Cap teresa(s) PO QAM 08/04/2017 08/03/2017 Inactive Adderall XR 10 mg capsule,extended release RxNorm: 946560 1 Cap teresa(s) PO QAM 08/04/2017 08/10/2017 Inactive Bactrim DS 800 mg-160 mg tablet RxNorm: 767247 1 Tablet(s) PO BID 1 08/28/2016 07/07/2017 Inactive clindamycin 300 mg capsule RxNorm: 285324 2 Capsule(s) PO TID doses for today and tomorrow 11/30/2016 05/01/2017 Inactive ketoconazole 2 % shampoo RxNorm: 086636 1 Application TOP twice a week 09/14/2016 05/01/2017 Inactive hydrocodone 5 mg-acetaminophen 325 mg tablet RxNorm: 286207 1 Tablet(s) PO Q6H as needed for pain 07/12/2016 05/01/2017 Inactive Cipro 250 mg tablet RxNorm: 310633 1 Tablet(s) PO BID 09/29/201509/09 Inactive cefuroxime axetil 250 mg tablet RxNorm: 301847 1 Tablet(s) PO BID 0 09/10/2015 09/16/2015 Inactive Micro-K 8 mEq capsule,extended release RxNorm: 563344 1 Capsule (s) PO QD 08/20/2015 08/16/2017 Inactive Micro-K 8 mEq capsule,extended release RxNorm: 446071 1 Capsule (s) PO QD 08/20/2015 08/19/2015 Inactive Adderall XR 20 mg capsule,extended release RxNorm: 572746 1 Cap teresa(s) PO QAM 04/30/2015 02/11/2016 Inactive hydroxyzine HCl 25 mg tablet RxNorm: 378885 1 Tablet(s) PO Q6H as needed for itching/hives 04/02/2015 09/12/2016 Inactive Miralax 17 gram oral powder packet RxNorm: 297461 17 Gr am(s) PO BID for constipation 02/26/2015 02/11/2016 Inactive Adderall XR 20 mg capsule,extended release RxNorm: 903127 1 Cap teresa(s) PO QAM 07/09/2014 08/07/2014 Inactive Adderall 20 mg tablet RxNorm: 145217 2 Tablet(s) PO QD 02/04/201408/2013 Inactive [AttnRPh: Saving apply/adjudicate RxGRP: SG20 RxBIN:[id number] RxPCN: ID#:[id number]] triamcinolone acetonide 0.1 % topical cream RxNorm: 4183256 1 Application TOP BID to affected area as needed 12/12/2013 01/13/2015 Inactive [ AttnRPh: Saving apply/adjudicate RxGRP:SG20 RxBIN:[id number] RxPCN:HT ID#:[id number]] Adderall 20 mg tablet RxNorm: 029734 2 Tablet(s) PO QD 12/04/2013 Inactive [AttnRPh: Saving apply/adjudicate RxGRP: SG20 RxBIN:[id number] RxPCN:HT ID#:[id number]] Adderall 20 mg tablet RxNorm: 091756 2 Tablet(s) PO QD 12/03/2013 Inactive [AttnRPh: Saving apply/adjudicate RxGRP: SG20 RxBIN:[id number] RxPCN: ID#:[id number]] Adderall 20 mg tablet RxNorm: 127693 2 Tablet(s) PO QD 11/02/2013 Inactive Adderall 20 mg tablet RxNorm: 133738 2 Tablet(s) PO QD 10/01/2013 Inactive meloxicam 7.5 mg tablet RxNorm: 972378 1 Tablet(s) PO QD 09/24/2013 0 08/19/2014 Inactive lisinopril 20 mg tablet RxNorm: 867342 1 Tablet(s) PO QD 09/24/2013 0 08/19/2014 Inactive Protonix 40 mg tablet,delayed release RxNorm: 000501 1 Tablet(s ) PO QD 09/24/2013 08/19/2014 Inactive Adderall 20 mg tablet RxNorm: 730159 2 Tablet(s) PO QD 08/29/2013 Inactive Adderall 20 mg tablet RxNorm: 834004 2 Tablet(s) PO QD 08/02/2013 Inactive hydroxyzine HCl 25 mg tablet RxNorm: 061932 1 Tablet(s) PO Q6H as needed 06/29/2013 08/19/2014 Inactive Adderall 20 mg tablet RxNorm: 982860 2 Tablet(s) PO QD 05/22/2013 Inactive Protonix 40 mg tablet,delayed release RxNorm: 852137 1 Tablet(s ) PO QD 05/15/2013 09/11/2013 Inactive meloxicam 7.5 mg tablet RxNorm: 500533 1 Tablet(s) PO QD 05/15/2013 0 09/11/2013 Inactive lisinopril 20 mg tablet RxNorm: 820192 1 Tablet(s) PO QD 05/15/2013 0 09/11/2013 Inactive Adderall 20 mg tablet RxNorm: 960062 2 Tablet(s) PO QD 04/02/2013 No Stop Date Active Adderall 20 mg tablet RxNorm: 178753 2 Tablet(s) PO QD 02/27/2013 No Stop Date Active Adderall 20 mg tablet RxNorm: 489027 2 Tablet(s) PO QD 01/22/2013 No Stop Date Active Adderall 20 mg tablet RxNorm: 127405 2 Tablet(s) PO QD 12/28/2012 No Stop Date Active Adderall 20 mg tablet RxNorm: 003606 2 Tablet(s) PO QD 12/01/2012 No Stop Date Active Adderall 20 mg tablet RxNorm: 841760 2 Tablet(s) PO QD 11/01/2012 No Stop Date Active K-Dur 20 mEq tablet,extended release RxNorm: 506437 1 Tablet(s) PO QD 10/19/2012 11/26/2018 Inactive meloxicam 7.5 mg tablet RxNorm: 953366 1 Tablet(s) PO QD 10/19/2012 0 04/16/2013 Inactive Protonix 40 mg tablet,delayed release RxNorm: 639674 1 Tablet(s ) PO QD 10/19/2012 04/16/2013 Inactive lisinopril 20 mg tablet RxNorm: 575995 1 Tablet(s) PO QD 10/19/2012 0 04/16/2013 Inactive Cipro 500 mg tablet RxNorm: 588877 1 Tablet(s) PO BID 07/05/201211/2011 Inactive Adderall XR 20 mg capsule,extended release RxNorm: 969522 2 Cap teresa(s) PO QAM 06/12/2012 07/26/2012 Inactive Adderall XR 20 mg capsule,extended release RxNorm: 312329 2 Cap teresa(s) PO QAM 05/16/2012 06/11/2012 Inactive Adderall XR 20 mg capsule,extended release RxNorm: 509453 2 Cap teresa(s) PO QAM 04/21/2012 05/15/2012 Inactive Adderall XR 20 mg capsule,extended release RxNorm: 498029 2 Cap teresa(s) PO QAM 02/16/2012 03/16/2012 Inactive Enablex 15 mg 24 hr Tab RxNorm: 484748 1 Tablet(s) PO QPM repla mady Vesicare 02/07/2012 05/28/2012 Inactive Enablex 15 mg 24 hr Tab RxNorm: 763069 1 Tablet(s) PO QPM repla mady Vesicare 02/07/2012 08/04/2012 Inactive Protonix 40 mg Tab RxNorm: 029966 1 Tablet(s) PO QD 02/07/20122011 Inactive Protonix 40 mg Tab RxNorm: 240005 1 Tablet(s) PO QD 02/02/20122011 Inactive Enablex 15 mg 24 hr Tab RxNorm: 770305 1 Tablet(s) PO QPM repla mady Vesicare 02/02/2012 02/06/2012 Inactive Adderall XR 20 mg 24 hr Cap RxNorm: 964765 2 Capsule(s) PO QAM 01/0602/15/2012 Inactive Adderall XR 20 mg 24 hr Cap RxNorm: 663602 2 Capsule(s) PO QAM 12/0601/15/2012 Inactive Adderall XR 20 mg 24 hr Cap RxNorm: 255458 2 Capsule(s) PO QAM 11/0612/16/2011 Inactive Adderall XR 20 mg 24 hr Cap RxNorm: 276646 2 Capsule(s) PO QAM 10/0611/17/2011 Inactive Adderall XR 20 mg 24 hr Cap RxNorm: 633025 2 Capsule(s) PO QAM 09/0910/24/2011 Inactive Prevacid 30 mg Cap RxNorm: 408451 1 Capsule(s) PO QD 07/30/201109/27 Inactive Adderall XR 20 mg 24 hr Cap RxNorm: 645813 2 Capsule(s) PO QAM 07/0908/28/2011 Inactive Adderall XR 20 mg 24 hr Cap RxNorm: 219013 2 Capsule(s) PO QAM 06/0807/21/2011 Inactive ciprofloxacin 0.3 % Eye Drops RxNorm: 119730 2 Drop(s) OPH Q2H 05/0905/31/2011 Inactive Adderall XR 20 mg 24 hr Cap RxNorm: 388050 2 Capsule(s) PO QAM 05/08 No Stop Date Active Wellbutrin XL 150 mg 24 hr Tab RxNorm: 199739 1 Tablet(s) PO QAM 04/14/2011 Inactive Vesicare 10 mg Tab RxNorm: 640903 1 Tablet(s) PO QD 12/24/20102011 Inactive Vesicare 10 mg Tab RxNorm: 336281 1 Tablet(s) PO QD 12/21/20102018 Inactive Adderall XR 30 mg 24 hr Cap RxNorm: 011486 1 Capsule(s) PO QD 11/1712/16/2010 Inactive Vesicare 10 mg Tab RxNorm: 038510 1 Tablet(s) PO QD 09/21/20102010 Inactive Adderall XR 30 mg 24 hr Cap RxNorm: 496018 1 Capsule(s) PO 09/17/1910/16/2010 Inactive Adderall XR 30 mg 24 hr Cap RxNorm: 544346 1 Capsule(s) PO QAM 07/0911/26/2018 Inactive Adderall XR 30 mg 24 hr Cap RxNorm: 002011 1 Capsule(s) PO QAM 07/0908/03/2010 Inactive Adderall XR 20 mg 24 hr Cap RxNorm: 666053 2 Capsule(s) PO QD 01/2602/02/2010 Inactive Adderall XR 20 mg 24 hr Cap RxNorm: 870611 1 Capsule(s) PO QD 01/2605/03/2010 Inactive Forteo 20 mcg/dose (600 mcg/2.4 mL) Sub-Q Pen Injector RxNorm: 1 298634 SQ 12/30/2009 01/25/2011 Inactive hyoscyamine 0.125 mg sublingual tablet RxNorm: 5038975 1 Tablet(s) SL Q4H as needed for excessive secretions No Start Date Active Senokot-S 8.6 mg-50 mg tablet RxNorm: 7464825 2 Tablet(s) PO BID No Start Date Active rabeprazole 20 mg tablet,delayed release RxNorm: 569502 1 Table t(s) PO QD No Start Date Active Micro-K 10 10 mEq capsule,extended release RxNorm: 807624 1 Cap teresa(s) PO QD No Start Date Active docusate sodium 100 mg tablet RxNorm: 9879153 1 Tablet(s) PO Q8H as needed No Start Date Active ondansetron HCl 4 mg tablet RxNorm: 239489 1 Tablet(s) PO Q4H a s needed No Start Date Active Vitamin D3 5,000 unit tablet RxNorm: 903327 1 Tablet(s) PO QD No Star t Date Active bisacodyl 5 mg tablet RxNorm: 272904 1 Tablet(s) PO BID as needed N o Start Date Active aspirin 81 mg tablet RxNorm: 999018 1 Tablet(s) PO QD No Start Date Active Multivitamin And Mineral oral RxNorm: oral No Start Date Active Benadryl 1 % topical cream RxNorm: 8817627 TOP as needed for hiv es No Start Date Active K-Dur 20 mEq tablet,extended release RxNorm: 061064 1 Tablet(s) PO QD No Start Date 08/19/2014 Inactive Colace 100 mg capsule RxNorm: 8354916 1 Capsule(s) PO BID No Start Date 01/19/2017 Inactive ketoconazole 2 % shampoo RxNorm: 654721 1 Application TOP twice a week No Start Date 09/13/2016 Inactive ibuprofen 600 mg tablet RxNorm: 708376 1 Tablet(s) PO Q6H as ne eded No Start Date 06/21/2018 Inactive Zaditor 0.025 % Eye Drops RxNorm: 034357 1 Drop(s) OPH BID No Start Date 05/28/2012 Inactive senna 8.6 mg tablet RxNorm: 172352 2 Tablet(s) PO BID No Start Date 0 02/11/2016 Inactive senna 8.6 mg tablet RxNorm: 353405 1 Tablet(s) PO BID No Start Date 0 02/11/2016 Inactive Amoxil 500 mg capsule RxNorm: 159977 1 Capsule(s) PO BID No Start D ate 05/01/2017 Inactive lisinopril 20 mg tablet RxNorm: 734862 1 Tablet(s) PO QD No Start D ate 10/18/2012 Inactive Prevacid 30 mg Capsule, delayed release RxNorm: 517880 1 Capsul e(s) PO QD No Start Date 02/01/2012 Inactive Senokot-S 8.6 mg-50 mg Tab RxNorm: 3872002 2 Tablet(s) PO QD PRN No Start Date 03/02/2010 Inactive Cymbalta 30 mg capsule,delayed release RxNorm: 573639 1 Capsule (s) PO QD No Start Date 08/16/2017 Inactive ketoconazole 2 % topical cream RxNorm: 991660 1 Applica tion TOP BID to scaly eyebrows No Start Date 05/01/2017 Inactive lorazepam 0.5 mg tablet RxNorm: 303364 1 Tablet(s) PO Q4H as ne eded No Start Date 06/21/2018 Inactive Vitamin C 500 mg tablet RxNorm: 645273 1 Tablet(s) PO QD No Start D ate 01/21/2013 Inactive albuterol sulfate 2.5 mg/3 mL (0.083 %) Neb Solution RxNorm: 094906 Milliliter(s) INH 1 vial in nebulizer every 4 hours as needed No Start Date 01/21/2013 Inactive Adderall XR 20 mg 24 hr Cap RxNorm: 333322 1 Capsule(s) PO QAM No S tart Date 01/25/2011 Inactive Xanax 0.25 mg Tab RxNorm: 328232 1/2 Tablet(s) PO BID PRN No Start Date 03/02/2010 Inactive Tylenol Extra Strength 500 mg Tab RxNorm: 901451 2 Tablet(s) PO PRN No Start Date 08/24/2011 Inactive Adderall 20 mg tablet RxNorm: 413039 2 Tablet(s) PO QD No Start Date 10/31/2012 Inactive bisacodyl 5 mg tablet,delayed release RxNorm: 989734 1 Tablet(s) PO Q12H as needed No Start Date 02/04/2019 Inactive Tessalon Perles 100 mg capsule RxNorm: 050367 1 Capsule (s) PO TID as needed for cough No Start Date 09/15/2017 Inactive Vitamin D3 1,000 unit tablet RxNorm: 022145 3 Tablet(s) PO QD No St art Date 02/22/2017 Inactive meloxicam 7.5 mg tablet RxNorm: 200847 1 Tablet(s) PO QD No Start D ate 10/18/2012 Inactive Bactroban 2 % topical ointment RxNorm: 803016 1 Application TOP QD No Start Date 12/11/2017 Inactive Toviaz 8 mg 24 hr Tab RxNorm: 494852 1 Tablet(s) PO QD No Start Date 09/21/2010 Inactive Prevacid 15 mg capsule,delayed release RxNorm: 021754 Capsule(s ) PO QD No Start Date 02/28/2018 Inactive K-Dur 20 mEq tablet,extended release RxNorm: 3099230 1 Tablet(s) PO QD No Start Date 10/18/2012 Inactive Adderall XR 20 mg 24 hr Cap RxNorm: 971512 2 Capsule(s) PO QAM No S tart Date 05/24/2011 Inactive Calcium with Vitamin D 600 mg-400 unit Tab RxNorm: 687314 1 Tab let(s) PO QD No Start Date 08/24/2011 Inactive Miralax 17 gram oral powder packet RxNorm: 516287 17 Gram(s) PO BID as needed No Start Date 11/26/2018 Inactive Zestril 10 mg Tab RxNorm: 977938 1 Tablet(s) PO QD No Start Date 10/06 Inactive baclofen 10 mg tablet RxNorm: 197065 1 Tablet(s) PO QHS No Start Da te 09/11/2015 Inactive Tums 500 Oral RxNorm: Oral No Start Date 01/13/2015 Inactive Senokot-S 8.6 mg-50 mg tablet RxNorm: 9317954 1 Tablet(s) PO BID No Start Date 11/26/2018 Inactive Prozac 10 mg Tab RxNorm: 523050 1 Capsule(s) PO QD No Start Date 10/06 Inactive Elavil 10 mg tablet RxNorm: 002573 1 Tablet(s) PO QHS No Start Date 0 12/12/2018 Inactive Dulcolax Stool Softener (docusate) 100 mg capsule RxNorm: 12 90503 1 Capsule(s) PO Q8H as needed No Start Date 01/19/2017 Inactive Adderall XR 30 mg 24 hr Cap RxNorm: 533067 1 Capsule(s) PO QAM No S tart Date 04/14/2011 Inactive Milk of Magnesia-Cascara 15.25 % oral suspension RxNorm: oral No Start Date 11/26/2018 Inactive Tylenol 325 mg tablet RxNorm: 453563 2 Tablet(s) PO Q4H as needed N o Start Date 11/26/2018 Inactive Prilosec 20 mg capsule,delayed release RxNorm: 942011 1 Capsule (s) PO BID No Start Date 09/08/2014 Inactive Tylenol 8 Hour 650 mg tablet,extended release RxNorm: 779894 0 1 Tablet(s) PO Q4H as needed No Start Date 11/26/2018 Inactive Vitamin D3 2,000 unit tablet RxNorm: 260281 1 Tablet(s) PO QD No St art Date 02/22/2017 Inactive nystatin 100,000 unit/gram topical powder RxNorm: 199358 1 Appl ication TOP BID No Start Date 08/15/2017 Inactive morphine 20 mg/5 mL (4 mg/mL) oral solution RxNorm: 578273 .25 Milliliter(s) PO Q4H as needed No Start Date 09/24/2018 Inactive Forteo 20 mcg/dose (750 mcg/3 mL) Sub-Q Pen Injector RxNorm: 143 5115 SQ QD No Start Date 01/21/2010 Inactive ciprofloxacin 0.3 % Eye Drops RxNorm: 987325 2 Drop(s) OPH TID to affected eye No Start Date 08/23/2012 Inactive bisacodyl 5 mg tablet RxNorm: 724424 1 Tablet(s) PO BID No Start Da te 02/11/2016 Inactive Avosil 2 %-0.2 % topical ointment RxNorm: 1 Appl ication TOP Q8H as needed to burn sites No Start Date 11/26/2018 Inactive Milk of Magnesia 800 mg/5 mL oral suspension RxNorm: 130336 Milliliter(s) PO as needed No Start Date 06/20/2018 Inactive Atarax 25 mg tablet RxNorm: 285734 1 Tablet(s) PO Q4H prn itchi ng/hives No Start Date 08/24/2011 Inactive Adderall XR 30 mg 24 hr Cap RxNorm: 271071 1 Capsule(s) PO QAM No S tart Date 07/26/2010 Inactive Prevacid 30 mg Cap RxNorm: 857733 1 Capsule(s) PO QD No Start Date Inactive Vitamin C 500 mg tablet RxNorm: 360950 1 Tablet(s) PO BID No Start Date 07/11/2016 Inactive Vistaril 25 mg capsule RxNorm: 109523 1 Capsule(s) PO Q4H PRN No St art Date 03/02/2010 Inactive tramadol 50 mg tablet RxNorm: 306534 1 Tablet(s) PO TID as need ed for pain No Start Date 01/21/2013 Inactive Multivitamin & Mineral Formula tablet RxNorm: 1 Tablet(s) PO Q D No Start Date 06/22/2018 Inactive hydrocodone 5 mg-acetaminophen 325 mg tablet RxNorm: 868255 1 Tablet(s) PO Q4H as needed for pain No Start Date 06/24/2019 Inactive Multivitamin & Mineral Formula Oral RxNorm: Oral No Start Da te 03/02/2010 Inactive Miralax 17 gram oral powder packet RxNorm: 049223 17 Gr am(s) PO QPM for constipation No Start Date 02/25/2015 Inactive Percocet 5 mg-325 mg tablet RxNorm: 0271119 1-2 Tablet(s) PO Q4H as needed No Start Date 09/24/2018 Inactive triamcinolone acetonide 0.1 % topical cream RxNorm: 4720490 1 Application TOP TID to affected area as needed No Start Date 12/12/2013 Inactive rabeprazole 20 mg tablet,delayed release RxNorm: 093018 1 Table t(s) PO QD No Start Date 09/24/2018 Inactive Protonix 40 mg tablet,delayed release RxNorm: 301723 1 Tablet(s ) PO QD No Start Date 10/18/2012 Inactive Mobic 7.5 mg Tab RxNorm: 132538 1 Tablet(s) PO BID No Start Date 10/06 Inactive Sinemet CR 50 mg-200 mg Tab RxNorm: 137635 1 Tablet(s) PO QD No Sta rt Date 03/02/2010 Inactive Adderall XR 20 mg 24 hr Cap RxNorm: 558111 2 Capsule(s) PO QD No St art Date 02/02/2010 Inactive Medication Administered No Medication Administered data Immunizations No Immunization data Results Observation Observation Code Item Item Code Result Date S [facility] Location COMPLETE BLOOD COUNT [id number] WBC 7.3 10e9/L 05/29/20 12 Unknown COMPLETE BLOOD COUNT [id number] RBC 5.20 10e12/L 2011 Unknown COMPLETE BLOOD COUNT [id number] HGB 15.3 g/dL 2 Unknown COMPLETE BLOOD COUNT [id number] HCT DET 45.9 % 2 Unknown COMPLETE BLOOD COUNT [id number] MCV 88.3 fL 2 Unknown COMPLETE BLOOD COUNT [id number] MCH 29.4 pg 2 Unknown COMPLETE BLOOD COUNT [id number] MCHC 33.3 g/dL 2 Unknown COMPLETE BLOOD COUNT [id number] PLT 341 10e9/L 05/29/20 12 Unknown COMPLETE BLOOD COUNT [id number] MPV 10.1 fL 2 Unknown COMPLETE BLOOD COUNT [id number] ASHLEY % 63.2 % 2 Unknown COMPLETE BLOOD COUNT [id number] LY % 27.4 % 2 Unknown COMPLETE BLOOD COUNT [id number] MON % 7.6 % 2 Unknown COMPLETE BLOOD COUNT [id number] EOS % 1.5 % 2 Unknown COMPLETE BLOOD COUNT [id number] BASO % 0.3 % 2 Unknown COMPLETE BLOOD COUNT [id number] RDW 13.6 % 2 Unknown COMPLETE BLOOD COUNT [id number] ABS ASHLEY 4.61 10e9/L 012 Unknown COMPLETE BLOOD COUNT [id number] ABS LYMPH 2.00 10e9/L 012 Unknown COMPLETE BLOOD COUNT [id number] ABS MONO 0.55 10e9/L 012 Unknown COMPLETE BLOOD COUNT [id number] ABS EOS 0.11 10e9/L 012 Unknown COMPLETE BLOOD COUNT [id number] ABS BASO 0.02 10e9/L 012 Unknown COMPLETE BLOOD COUNT [id number] RDW-SD 43.5 fL 2 Unknown THYROID STIMULATING HORMONE 61229 TSH 1.487 uIU/ML 05/29/2012 Unknown GFR CALC [id number] GFR AA >60 ML/MIN 05/29/2012 Unknown GFR CALC [id number] GFR NON-AA >60 ML/MIN 05/29/2012 Unknown FREE T4 72842 FREE T4 1.20 NG/DL 05/29/2012 Unknown COMPREHENSIVE METABOLIC 88049 AST 17 U/L 2011 Unknown COMPREHENSIVE METABOLIC 13871 ALT 16 IU/L 2011 Unknown COMPREHENSIVE METABOLIC 84221 BUN 9 MG/DL 2011 Unknown COMPREHENSIVE METABOLIC 03207 ALBUMIN 4.1 GM/DL 2011 Unknown COMPREHENSIVE METABOLIC 90539 CHLORIDE 106 MMOL/L 05/29 Unknown COMPREHENSIVE METABOLIC 65653 BILI TOT 0.4 MG/DL 2011 Unknown COMPREHENSIVE METABOLIC 07350 ALK PHOS 87 U/L 2011 Unknown COMPREHENSIVE METABOLIC 79951 SODIUM 142 MMOL/L 05/29 Unknown COMPREHENSIVE METABOLIC 05284 CREATININE 0.79 MG/DL 05/09 Unknown COMPREHENSIVE METABOLIC 92756 CALCIUM 9.2 MG/DL 2011 Unknown COMPREHENSIVE METABOLIC 02886 POTASSIUM 3.6 MMOL/L 05/29 Unknown COMPREHENSIVE METABOLIC 54353 PROT TOT 6.5 GM/DL 2011 Unknown COMPREHENSIVE METABOLIC 11078 Glucose 78 MG/DL 2011 Unknown COMPREHENSIVE METABOLIC 28706 BICARB 27 MMOL/L 2011 Unknown COMPREHENSIVE METABOLIC 88194 ANION GAP 9 MEQ/L 2011 Unknown Procedures Procedure Codes Date PPPS, subseq visit CPT-4: G0439 08/03/2018 PPPS, subseq visit CPT-4: G0439 07/12/2016 CUR TOBACCO NON-USER CPT-4: G8457 04/15/2015 URINALYSIS NONAUTO W/O SCOPE CPT-4: 80884 07/05/2012 URINE CULTURE/ COLONY COUNT CPT-4: 04347 07/05/2012 PRESCRIP TRANSMIT VIA ERX SY CPT-4: G8553 07/05/2012 ROUTINE VENIPUNCTURE CPT-4: 61590 05/29/2012 ASSAY OF FREE THYROXINE CPT-4: 86024 05/29/2012 ASSAY THYROID STIM HORMONE CPT-4: 26185 05/29/2012 COMPREHEN METABOLIC PANEL CPT-4: 42904 05/29/2012 COMPLETE CBC W/AUTO DIFF WBC CPT-4: 46674 05/29/2012 PRESCRIP TRANSMIT VIA ERX SY CPT-4: G8553 05/29/2012 PRESCRIP TRANSMIT VIA ERX SY CPT-4: G8553 02/02/2012 PRESCRIP TRANSMIT VIA ERX SY CPT-4: G8553 05/27/2011 PRESCRIP TRANSMIT VIA ERX SY CPT-4: G8553 02/22/2011 SERVICE REQUIRED FOR PMD CPT-4: G0372 06/15/2010 ROUTINE VENIPUNCTURE CPT-4: 12090 10/20/2009 Vital Signs Date Vital 10/01/2019 Blood [...] 1: 114/66 Code: 8480-6 BMI: 25.8 Code: 50234-9 Heart Rate 1: 72 bpm Height: 5'2" [...] 1: 122/80 Code: 8480-6 BMI: 24.9 Code: 73042-9 Heart Rate 1: 100 bpm Height: 5'2" Respiratory Rate: 20 bpm Temperature: 37 .1 (C) / 98.8 (F) Weight: 136 lbs 11/03/2011 Blood Pressure 1: 104/60 Code: 8480-6 BMI: 24.1 Code: 09111-8 Heart Rate 1: 88 bpm Height: 5'2" Respiratory Rate: 20 bpm Temperature: 36 .6 (C) / 97.8 (F) Weight: 132 lbs 08/25/2011 Blood Pressure 1: 128/86 Code: 8480-6 BMI: 24.9 Code: 76010-1 Heart Rate 1: 76 bpm Height: 5'2" Respiratory Rate: 20 bpm Temperature: 36 .2 (C) / 97.2 (F) Weight: 136 lbs 05/27/2011 Blood Pressure 1: 130/90 Code: 8480-6 BMI: 25.1 Code: 88395-7 Heart Rate 1: 68 bpm Height: 5'2" [...] 1: 114/70 Code: 8480-6 BMI: 22.9 Code: 15064-6 Heart Rate 1: 92 bpm Height: 5'2" [...] N/V Encounters Encounter Performer Location Codes Date ([id number]) OFFICE/OUTPATIENT VISIT EST 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 CPT-4: 03141 10/01/2019 ([id number]) OFFICE/OUTPATIENT VISIT EST Diagnosis: Personal history of malignant neoplasm of brain[ICD10: Z85.841] Diagnosis: Muscle weakness (generalized)[ICD10: M62.81] Diagnosis: Hemiplegia, unspecified affecting left dominant side[ICD10: G81.92] Diagnosis: Contracture, 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] Cherri HOLGUIN DO [facility] CPT-4: 87260 06/25/2019 ([id number]) OFFICE/OUTPATIENT VISIT EST Diagnosis: Attention and concentration deficit[ICD10: R41.840] Diagnosis: Abnormal weight loss[ICD10: R63.4] Cherri HOLGUIN [facility] CPT-4: 04307 02/05/2019 ([id number]) OFFICE/OUTPATIENT VISIT EST Diagnosis: Attention and concentration deficit[ICD10: R41.840] Cherri HOLGUIN [facility] CPT-4: 43888 12/13/2018 ([id number]) OFFICE/OUTPATIENT VISIT EST Diagnosis: Laceration without foreign body of left upper arm, sequela[ICD10: S41.112S] Diagnosis: Other fatigue[ICD10: R53.83] Cherri HOLGUIN [facility] CPT-4: 32159 11/27/2018 ([id number]) OFFICE/OUTPATIENT VISIT EST Diagnosis: Gastro-esophageal reflux disease without esophagitis[ICD10: K21.9] Diagnosis: Contracture, 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] Diagnosis: Slow transit constipation[ICD10: K59.01] Cherri HOLGUIN DO [facility] CPT-4: 06470 09/25/2018 ([id number]) OFFICE/OUTPATIENT VISIT EST Diagnosis: Gastro-esophageal reflux disease without esophagitis[ICD10: K21.9] Diagnosis: Muscle weakness (generalized)[ICD10: M62.81] Maxine Pee CHERRI HOLGUIN [facility] CPT-4: 38428 06/22/2018 ([id number]) OFFICE/OUTPATIENT VISIT EST Diagnosis: Gastro-esophageal reflux disease without esophagitis[ICD10: K21.9] Cherri HOLGUIN DO [facility] CPT-4: 17218 04/06/2018 ([id number]) OFFICE/OUTPATIENT VISIT EST Diagnosis: Gastro-esophageal reflux disease without esophagitis[ICD10: K21.9] Maxine HOLGUIN DO 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 CPT-4: 97182 02/15/2018 ([id number]) OFFICE/OUTPATIENT VISIT EST Diagnosis: Muscle weakness (generalized)[ICD10: M62.81] Diagnosis: Gastro-esophageal reflux disease without esophagitis[ICD10: K21.9] Cherri HOLGUIN DO [facility] CPT-4: 92293 12/12/2017 ([id number]) OFFICE/OUTPATIENT VISIT EST Diagnosis: Nondisplaced fracture of medial malleolus of left tibia, subsequent encounter for closed fracture with delayed healing[ICD10: S82.55XG] Cherri HOLGUIN DO [facility] CPT-4: 08671 10/10/2017 OFFICE/OUTPATIENT VISIT EST Diagnosis: Acute upper respiratory infection, unspecified[ICD10: J06.9] Maxine HOLGUIN DO [facility] CPT-4: 27127 09/19/2017 ([id number]) OFFICE/OUTPATIENT VISIT EST Diagnosis: Muscle weakness (generalized)[ICD10: M62.81] Diagnosis: Other specified disorders of the skin and subcutaneous tissue[ICD10: L98.8] Cherri HOLGUIN DO [facility] CPT-4: 02021 08/04/2017 ([id number]) OFFICE/OUTPATIENT VISIT EST Diagnosis: Unspecified open wound of abdominal wall, left upper quadrant with penetration into peritoneal cavity, sequela[ICD10: S31.601S] Diagnosis: Muscle weakness (generalized)[ICD10: M62.81] Diagnosis: Personal history of malignant neoplasm of brain[ICD10: Z85.841] Cherri HOLGUIN DO [facility] CPT-4: 78649 07/12/2017 ([id number]) OFFICE/OUTPATIENT VISIT EST Diagnosis: Non-pressure chronic ulcer of skin of other sites with unspecified severity[ICD10: L98.499] Diagnosis: Tinea cruris[ICD10: B35.6] Cherri RUSHING Qumulo [facility] CPT-4: 92086 05/30/2017 ([id number]) OFFICE/OUTPATIENT VISIT EST Diagnosis: Cellulitis of abdominal wall[ICD10: L03.311] Diagnosis: Cellulitis of chest wall[ICD10: L03.313] Cherri HOLGUIN DO [facility] CPT-4: 62005 05/02/2017 ([id number]) OFFICE/OUTPATIENT VISIT EST Diagnosis: Cellulitis of chest wall[ICD10: L03.313] Diagnosis: Muscle weakness (generalized)[ICD10: M62.81] Cherri HOLGUIN DO [facility] CPT-4: 80903 02/28/2017 ([id number]) OFFICE/OUTPATIENT VISIT EST Diagnosis: Cellulitis of abdominal wall[ICD10: L03.311] Cherri HOLGUIN DO [facility] CPT-4: 95841 12/06/2016 OFFICE/OUTPATIENT VISIT EST Diagnosis: Cutaneous abscess of abdominal wall[ICD10: L02.211] Diagnosis: Cellulitis of abdominal wall[ICD10: L03.311] Cherri HOLGUIN DO [facility] CPT-4: 62717 12/02/2016 ([id number]) OFFICE/OUTPATIENT VISIT EST Diagnosis: Cellulitis of abdominal wall[ICD10: L03.311] Diagnosis: Cutaneous abscess of abdominal wall[ICD10: L02.211] Cherri HOLGUIN DO 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] Cherri HOLGUIN [facility] CPT-4: 30994 10/26/2016 ([id number]) OFFICE/OUTPATIENT VISIT EST Diagnosis: Other seborrheic dermatitis[ICD10: L21.8] Cherri HOLGUIN [facility] CPT-4: 01852 09/13/2016 ([id number]) OFFICE/OUTPATIENT VISIT EST Diagnosis: Contracture, 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] Diagnosis: Nicotine dependence, cigarettes, uncomplicated[ICD10: F17.210] Diagnosis: Hemiplegia, unspecified affecting unspecified side[ICD10: G81.90] Diagnosis: Muscle weakness (generalized)[ICD10: M62.81] [facility] 43619 05/11/2016 ([id number]) OFFICE/OUTPATIENT VISIT EST Diagnosis: Muscle weakness (generalized)[ICD10: M62.81] Diagnosis: Abnormal weight loss[ICD10: R63.4] [facility] 35174 12/23/2015 ([id number]) OFFICE/OUTPATIENT VISIT EST Diagnosis: Torticollis[ICD10: M43.6] Diagnosis: Cervicalgia[ICD10: M54.2] Diagnosis: Basal cell carcinoma of skin, unspecified[ICD10: C44.91] [facility] 73753 09/23/2015 ([id number]) OFFICE/OUTPATIENT VISIT EST Diagnosis: Constipation[ICD9: 564.00] Diagnosis: MUSCLE WEAKNESS-GENERAL[ICD9: 728.87] Cherri HOLGUIN [facility] CPT-4: 95119 04/15/2015 ([id number]) OFFICE/OUTPATIENT VISIT EST Diagnosis: MALAISE AND FATIGUE[ICD9: 780.79] Diagnosis: 3RD DEGREE BURN[ICD9: 949.3] Cherri HOLGUIN [facility] CPT-4: 44929 01/14/2015 ([id number]) OFFICE/OUTPATIENT VISIT EST Diagnosis: Constipation[ICD9: 564.00] Diagnosis: MUSCLE WEAKNESS-GENERAL[ICD9: 728.87] Diagnosis: 3RD DEGREE BURN[ICD9: 949.3] Cherri JOHNSTONLINE EarlBelkis PERNELL [facility] CPT-4: 53069 10/29/2014 ([id number]) OFFICE/OUTPATIENT VISIT EST Diagnosis: Weakness generalized[ICD9: 780.79] Diagnosis: 3RD DEGREE BURN[ICD9: 949.3] Cherri JOHNSTONLINE EarlBelkis PERNELL [facility] CPT-4: 79762 08/20/2014 ([id number]) OFFICE/OUTPATIENT VISIT EST Diagnosis: 3RD DEGREE BURN[ICD9: 949.3] Diagnosis: DYSPHAGIA NEC[ICD9: 787.29] Cherri SANCHEZQUELINE Martha Partida XENIA [facility] CPT-4: 70099 06/04/2014 ([id number]) OFFICE/OUTPATIENT VISIT EST Diagnosis: 3RD DEGREE BURN[ICD9: 949.3] Diagnosis: Complication of skin graft[ICD9: 996.52] Diagnosis: TOBACCO USE DISORDER[ICD9: 305.1] Cherri Mianrl Franklin EarlBelkis PERNELL [facility] CPT-4: 87632 05/06/2014 ([id number]) OFFICE/OUTPATIENT VISIT EST Diagnosis: CELLULITIS[ICD9: 682.9] Cherri Pappasrl CHERRI EarlBelkis LAWSON NANNETTE [facility] CPT-4: 72957 08/07/2013 ([id number]) OFFICE/OUTPATIENT VISIT EST Diagnosis: MUSCLE WEAKNESS-GENERAL[ICD9: 728.87] Diagnosis: MALAISE AND FATIGUE[ICD9: 780.79] Diagnosis: ABNORMALITY OF GAIT[ICD9: 781.2] Cherri HOLGUIN DO [facility] CPT-4: 09551 05/23/2013 ([id number]) OFFICE/OUTPATIENT VISIT EST Diagnosis: MALAISE AND FATIGUE[ICD9: 780.79] Diagnosis: MUSCLE WEAKNESS-GENERAL[ICD9: 728.87] Diagnosis: HEMIPLEGIANOS SIDE NOS[ICD9: 342.90] Diagnosis: 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] Cherri HOLGUIN [facility] CPT-4: 43630 04/25/2013 ([id number]) OFFICE/OUTPATIENT VISIT EST Diagnosis: MUSCLE WEAKNESS-GENERAL[ICD9: 728.87] Diagnosis: ABNORMALITY OF GAIT[ICD9: 781.2] Diagnosis: MALAISE AND FATIGUE[ICD9: 780.79] Cherri HOLGUIN [facility] CPT-4: 82342 01/22/2013 OFFICE/OUTPATIENT VISIT EST Diagnosis: MALAISE AND FATIGUE[ICD9: 780.79] Diagnosis: MUSCLE WEAKNESS-GENERAL[ICD9: 728.87] Diagnosis: HEMIPLEGIANOS SIDE NOS[ICD9: 342.90] Diagnosis: ABNORMALITY OF GAIT[ICD9: 781.2] Cherri HOLGUIN [facility] CPT-4: 82254 10/18/2012 OFFICE/OUTPATIENT VISIT EST Diagnosis: ABNORMALITY OF GAIT[ICD9: 781.2] Diagnosis: MALAISE AND FATIGUE[ICD9: 780.79] Diagnosis: MUSCLE WEAKNESS-GENERAL[ICD9: 728.87] Cherri HOLGUIN [facility] CPT-4: 35580 09/25/2012 OFFICE/OUTPATIENT VISIT EST Diagnosis: CERVICALGIA[ICD9: 723.1] Diagnosis: ABNORMALITY OF GAIT[ICD9: 781.2] Diagnosis: MUSCLE WEAKNESS-GENERAL[ICD9: 728.87] Cherri HOLGUIN DO [facility] CPT-4: 41763 08/24/2012 ([id number]) OFFICE/OUTPATIENT VISIT EST Diagnosis: URINARY TRACT INFECTION[ICD9: 599.0] Diagnosis: Altered mental state[ICD9: 780.97] Diagnosis: MUSCLE WEAKNESS-GENERAL[ICD9: 728.87] Diagnosis: HEMIPLEGIANOS SIDE NOS[ICD9: 342.90] Diagnosis: Cervicalgia[ICD9: 723.1] Cherri CARIAS [facility] CPT-4: 77116 07/27/2012 OFFICE/OUTPATIENT VISIT EST Diagnosis: URINARY TRACT INFECTION[ICD9: 599.0] Diagnosis: Weakness generalized[ICD9: 780.79] Diagnosis: FEBRILE ILLNESS[ICD9: 780.60] Diagnosis: Vision disturbance[ICD9: 368.9] Tasneem HOLGUIN [facility] CPT-4: 61639 07/05/2012 OFFICE/OUTPATIENT VISIT EST Diagnosis: CONJUNCTIVITIS NOS[ICD9: 372.30] Diagnosis: MUSCLE WEAKNESS-GENERAL[ICD9: 728.87] Diagnosis: HEMIPLEGIANOS SIDE NOS[ICD9: 342.90] Diagnosis: ABNORMALITY OF GAIT[ICD9: 781.2] [facility] 06690 05/29/2012 ([id number]) OFFICE/OUTPATIENT VISIT EST Diagnosis: MUSCLE WEAKNESS-GENERAL[ICD9: 728.87] Diagnosis: HEMIPLEGIANOS SIDE NOS[ICD9: 342.90] Diagnosis: ABNORMALITY OF GAIT[ICD9: 781.2] Diagnosis: DYSPEPSIA[ICD9: 536.8] Diagnosis: GERD[ICD9: 530.81] Cherri HOLGUIN [facility] CPT-4: 35752 02/02/2012 ([id number]) OFFICE/OUTPATIENT VISIT EST Diagnosis: MUSCLE WEAKNESS-GENERAL[ICD9: 728.87] Diagnosis: ABNORMALITY OF GAIT[ICD9: 781.2] Diagnosis: GERD[ICD9: 530.81] Cherri HOLGUIN [facility] CPT-4: 71887 11/03/2011 OFFICE/OUTPATIENT VISIT EST Diagnosis: MUSCLE WEAKNESS-GENERAL[ICD9: 728.87] Diagnosis: ABNORMALITY OF GAIT[ICD9: 781.2] Diagnosis: VOMITING ALONE[ICD9: 787.03] Diagnosis: GERD[ICD9: 530.81] Cherri HOLGUIN [facility] CPT-4: 12230 08/25/2011 OFFICE/OUTPATIENT VISIT EST Diagnosis: CONJUNCTIVITIS NOS[ICD9: 372.30] Cherri HOLGUIN DO [facility] CPT-4: 40203 05/27/2011 OFFICE/OUTPATIENT VISIT EST Diagnosis: MUSCLE WEAKNESS-GENERAL[ICD9: 728.87] Diagnosis: ABNORMALITY OF GAIT[ICD9: 781.2] Cherri HOLGUIN DO [facility] CPT-4: 62278 04/15/2011 OFFICE/OUTPATIENT VISIT EST Diagnosis: MALAISE AND FATIGUE[ICD9: 780.79] Diagnosis: MUSCLE WEAKNESS-GENERAL[ICD9: 728.87] Diagnosis: DEPRESSIVE DISORDER NEC[ICD9: 311] Diagnosis: ABNORMALITY OF GAIT[ICD9: 781.2] Cherri HOLGUIN DO [facility] CPT-4: 25740 03/22/2011 OFFICE/OUTPATIENT VISIT EST Cherri DORANTES DO [facility] CPT- 4: 32811 02/22/2011 ([id number]) OFFICE/OUTPATIENT VISIT EST Cherri HOLGUIN DO [facility] CPT-4: 25420 01/26/2011 ([id number]) OFFICE/OUTPATIENT VISIT, EST Cherri HOLGUIN DO [facility] CPT-4: 03731 06/15/2010 ([id number]) OFFICE/OUTPATIENT VISIT, EST Cherri HOLGUIN DO [facility] CPT-4: 10388 05/04/2010 ([id number]) OFFICE/OUTPATIENT VISIT, EST Cherri HOLGUIN DO [facility] CPT-4: 52272 03/03/2010 ([id number]) OFFICE/OUTPATIENT VISIT, EST Cherri HOLGUIN DO [facility] CPT-4: 23266 10/20/2009 Plan of Care Planned Activity Notes [...] ICD-10 : M62.81 06/25/2019 Appointment: Cherri Holguintel: [address] [place], [place] [phone] [place] Confirmed with nara. FOLLOW UP 06/25/2019 [...] ICD-10 : R63.4 02/05/2019 Appointment: Cherri Holguintel: [address] [place], [place] [phone] [place] Confirmed with Nara Hankins 02/02 @ 11:07 am FOL LOW UP 02/05/2019 Appointment: Cherri Holguintel: [address] [place], [place] [phone] [place] NO SHOW 01/24/2019 Visit Diagnosis Plan: Attention and concentration defi cit Discussion: Trial of strattera 10mg daily for 1 week then 25mg daily Recheck 6 weeks Stimulants have caused weight loss in past as patient is also poor, picky eater so with the stimulants her appetite worsens even more ICD-9 : 799.51 ICD-10 : R41.840 12/13/2018 Appointment: Cherri Holguintel: [address] [place], [place] [phone] [place] confirmed with Morena FOLLOW UP 12/13/2018 [...] R53.83 11/27/2018 Appointment: [facility] [phone] [facility] [place] confirmed with Karlee FOLLOW UP [...] K59.01 09/25/2018 Appointment: Cherri [facility]el[facility] [phone] [facility] [place] FOLLOW UP 09/25/2018 Visit Diagnosis Plan: Encounter for gene [facility] adult medical examination with abnormal [...] : Z12.39 08/03/2018 Appointment: Maxine Glasgow [address] [facility] Annual Well Visit 08/03/2018 Visit Diagnosis [...] : K21.9 06/22/2018 Appointment: Maxine Glasgow [address] [facility] H & P 06/22/2018 Visit Diagnosis Plan: Gastro-esophageal reflux disease without esophagitis Discussion: Continue aciphex at 20m po daily Recheck 2mos ICD-9 : 530.81 ICD-10 : K21.9 04/06/2018 Appointment: Cherri Holguin WPtel: [address] [place] [address] FOLLOW UP 04/06/2018 Patient Education: Patient Medication Summary Completed 04/06/2018 Appointment: Cherri Holguin WPtel: [address] [place] [address] RESCHEDULED 03/07/2018 Visit Diagnosis Plan: Gastro-esophageal reflux disease without esophagitis Discussion: patient had aciphex and prevacid on med list. order written out on patient's list to only give the aciphex as prescribed and not both. follow up in one month to assess medication efficacy and constipation. ICD-9 : 530.81 ICD-10 : K21.9 03/06/2018 Appointment: Maxine Glasgow [address] [facility] FOLLOW UP 03/06/2018 Patient Education: Patient [...] : F51.01 02/15/2018 Appointment: Cherri Holguin WPtel: [address] [place], [place] [phone] [place] FOLLOW UP 02/15/2018 Patient Education: Patient Medication Summary Completed 02/15/2018 Appointment: Cherri Holguin WPtel: [address] [place], [place] [phone] called, stating that the patient [...] : K21.9 12/12/2017 Appointment: Cherri Holguin WPtel: [facility] [place] FOLLOW UP 12/12/2017 Patient Education: Patient Medication Summary Completed 12/12/2017 Visit Diagnosis Plan: Nondisplaced fract ure of medial malleolus of left tibia, subsequent encounter for closed fracture with delayed healing Discussion: Add miacalcin nasal spray for next 2mos Fwup with ortho Follow Up: 2 months ICD-9 : V54.16 ICD-10 : S82.55XG 10/10/2017 Appointment: Cherri Holguin WPtel: [address] [place] [address] [place] FOLLOW UP 10/10/2017 Patient Education: Patient Medication Summary Completed 10/10/2017 Appointment: Cherri Holguin WPtel: [address] [place] [address] [place] RESCHEDULED 10/04/2017 Referral: Alvarado Mercado WPtel: [address] [address] [place] Referral Initiated 10/04/2017 Visit Diagnosis Plan: Acute upper respiratory infectio n, unspecified Discussion: continue with tessalon perles as needed. increase fluids. notify if worsening symptoms including shortness of breath or fever. call or rtc later this week if no improvement. instructed patient to perform deep breathing exercises at home. ICD-9 : 465.9 ICD-10 : J06.9 09/19/2017 Appointment: Maxine Glasgow [address] [place] [address] ACUTE ILLNESS 09/19/2017 Patient Education: Patient Medication Summary Completed 09/19/2017 Appointment: Cherri Holguin WPtel: [address] [place] [address] [place] CANCELED 08/16/2017 Visit Diagnosis Plan: Muscle [...] : L98.8 08/04/2017 Appointment: Cherri Holguin WPtel: [address] [place], [place] [phone] [place] FOLLOW UP 08/04/2017 Patient Education: Patient [...] : S31.601S 07/12/2017 Appointment: Cherri Holguin WPtel: [address] [place] [address] Follow Up 07/12/2017 Patient Education: Patient Medication [...] : B35.6 05/30/2017 Appointment: Cherri Holguin WPtel: [address] [place] [address] FOLLOW UP 05/30/2017 Patient Education: Patient Medication Summary Completed 05/30/2017 Visit Diagnosis Plan: Cellulitis of abdominal wall Dis cussion: Finish keflex Referral to wound care ICD-9 : 682.2 ICD-10 : L03.311 05/02/2017 Appointment: Cherri Holguin WPtel: [address] [place] [address] [place] FOLLOW UP 05/02/2017 Patient Education: Patient Medication Summary Completed 05/02/2017 Referral: Remigio Valdes WPtel: [address] [place], [place] [phone] [place] Referral Initiated 04/05/2017 Visit Diagnosis Plan: Muscle weakness (generalized) Di scussion: Stable Follow Up: 2 months ICD-9 : 728.87 ICD-10 : M62.81 02/28/2017 Visit Diagnosis Plan: Cellulitis of chest wall Discuss ion: Keflex x1 week Continue daily dressing changes ICD-9 : 682.2 ICD-10 : L03.313 02/28/2017 Appointment: Cherri [facility]guintel[facility] 02/24 confirmed~sl FOLLOW UP 02/28/2017 Patient Education: Patient Medication Summary Completed 02/28/2017 Visit Diagnosis Plan: Cellulitis of abdominal wall Dis cussion: Healing and improving so will finish all of clindamycin and monitor wounds for any worsening or recurrence ICD-9 : 682.2 ICD-10 : L03.311 12/06/2016 Appointment: Cherri Holguintel: [address] [place], [place] [id number] WORK IN 12/06/2016 Patient Education: Patient Medication Summary Completed 12/06/2016 Visit Diagnosis Plan: Cutaneous abscess of abdominal w all Discussion: Continue clindamycin and dressing changes To ER this weekend if worsens Fwup with me in 4 days for recheck ICD-9 : 682.2 ICD-10 : L02.211 12/02/2016 Appointment: Cherri Holguintel[facility] [address] [facility] FOLLOW UP 12/02/2016 Patient Education: Patient [...] L02.211 12/01/2016 Appointment: Cherri Holguin WPtel: [phone] [facility] [place] WORK IN 12/01/2016 Patient Education: Patient Medication Summary Completed 12/01/2016 Visit Diagnosis Plan: Cutaneous abscess of abdominal w all Discussion: Copious amounts of pus expressed until bloody discharge Start clindamycin Recheck tomorrow Erythema outline marked Follow Up: 1 days ICD-9 : 682.2 ICD-10 : L02.211 11/30/2016 Appointment: Cherri Holguin WPtel: [address] [place], [place] [phone] 11/29 confirmed`sl FOLLOW UP 11/30/2016 Patient Education: Patient Medication Summary Completed 11/30/2016 Appointment: Cherri Holguin WPtel: [address] [place], [place] [phone] 11/10 scalp looks ok will discuss at [...] : K59.01 10/26/2016 Appointment: Cherri Holguin WPtel: [facility] ACUTE ILLNESS 10/26/2016 Patient Education: Patient Medication Summary Completed 10/26/2016 Patient Education: Patient Medication Summary Completed 10/21/2016 Care Plan: CT HEAD/BRAIN W/O DYE LOINC : 31763-2 Pending 10/21/2016 Visit Diagnosis Plan: Other seborrheic dermatitis Disc ussion: Topical ketoconazole shampoo alternating with selsun blue Follow Up: 2 months ICD-9 : 706.3 ICD-10 : L21.8 09/13/2016 Appointment: Cherri Holguin WPtel: [address] [place] [address] 09/09 confirm`sl FOLLOW UP 09/13/2016 Patient Education: Patient Medication Summary Completed 09/13/2016 Appointment: Cherri Holguin WPtel: [address] [place] [address] [place] CANCELED 07/13/2016 Visit Plan: Low-dose CT scan-45 PPD of C hest Check hemoccult Discussed updated CT of head to recheck meningioma Zostavax vaccine Will obtain last colonoscopy results Update lab 07/12/2016 Appointment: Cherri Holguin WPtel: [address] [place] [address] 07/08 confirmed~sl Annual Well Visit 07/12/2016 Patient Education: Patient Medication Summary Completed 07/12/2016 Visit Plan: Gets teeth extracted next mo nth then getting fitted for dentures so some of poor appetite is due to inability to eat certain things Continue current meds Defers flu shot 05/11/2016 Appointment: Cherri Holguin WPtel: [address] [place] [address] 05/10 confirmed~sl FOLLOW UP 05/11/2016 Patient Education: Patient Medication Summary Completed 05/11/2016 Visit Plan: Discussed nutrition and poss ible shakes as supplement until gets teeth completely pulled and fitted for full dentures Continue current meds Did have right scalp lesion removed 12/23/2015 Appointment: Cherri Holguin WPtel: [address] [place] [address] 12/21 confirmed-sp FOLLOW UP 12/23/2015 Patient Education: Patient Medication Summary Completed 12/23/2015 Referral: Tabitha Messer WPtel: [facility] [address] [address] [place] Spoke with Kayli at [facility] and gave her appt information Initiated 10/07/2015 Visit Plan: Start PT for ROM of neck Dis cussed milkshake in place of meal if does not eat at least 20% of meal--patient states she wants to lose weight and does not like the food served there See dermatology for removal of scalp lesion 09/23/2015 Appointment: Cherri Holguin WPtel: [address] [place], [place] [address] 09/22/15 appt confirmed with Ambre at [facility] cn FOLLOW UP 09/23/2015 Patient Education: Patient Medication Summary Completed 09/23/2015 Visit Plan: Stop miralax and senokot-s S tart dulcolax daily Patient asking for PT and OT again but admits they don't really help/she doesn't gain much from them 04/15/2015 Appointment: Cherri Holguin WPtel: [address] [place] [address] 04/11 confirmed with [facility] FOLLOW UP 04/15/2015 Patient Education: Patient Medication Summary Completed 04/15/2015 Visit Plan: Check CBC, CMP, TSH, free T4 , Vit D Continue current meds 01/14/2015 Appointment: Cherri Holguin WPtel: [address] [place] [address] ACUTE ILLNESS 01/14/2015 Patient Education: Patient Medication Summary Completed 01/14/2015 Visit Plan: Change to Senokot-S 2 po BID Add miralax Has been released by burn center for now 10/29/2014 Appointment: Cherri Holguin WPtel: [address] [place], [place] [phone] 10/28 with Madiha FOLLOW UP 10/29/2014 Patient Education: Patient Medication Summary Completed 10/29/2014 Visit Plan: Patient is wheelchair bound now Continue current meds Patient following with [facility] end of 08/20/2014 Appointment: Cherri Holguin WPtel: [address] [place], [place] [phone] [facility]LP rescheduled due to cold weather 08/19 message with Madiha at [facility] FOLLOW U P 08/20/2014 Patient Education: Patient [...] in [place] 06/04/2014 Appointment: Cherri Holguin WPtel: [address] [place], [place] [phone] FOLLOW UP 06/04/2014 Patient Education: Patient Medication Summary Completed 06/04/2014 Visit Plan: Patient sees burn center nex t week Explained importance of taking nutren routinely as needs nutrition Increase prilosec to 20mg po BID Smoking Cessation 05/06/2014 Appointment: Cherri Holguin WPtel: [address] [place], [place] [phone] 05/03 vm on patient phone 05/03 [facility] with Maria L [facility] Follow Up 05/06/2014 Patient Education: Patient Medication Summary Completed 05/06/2014 Visit Plan: Finish abx Brian wrap to left LE and elevate 08/07/2013 Appointment: Cherri Holguin WPtel: [address] [place], [place] [address] Urgent/Quick Care Follow Up 07/10 Patient Education: Patient Medication Summary Completed 08/07/2013 Appointment: Cherri Holguin WPtel: [address] [place], [place] [id number] 07/18 appointment confirmed with patient 07/19 NO SHOW FOLLOW UP 07/19/2013 Visit Plan: Continue current meds Contin ue PT 05/23/2013 Appointment: Cherri Holguin WPtel: [address] [place] [address] 05/22 vm...appt confirmed FOLLOW UP 2012 Patient Education: Patient Medication Summary Completed 05/23/2013 Visit Plan: Long discussion about need f or 24hr care Pt wants to go home 04/25/2013 Appointment: Cherri Holguintel: [address] [place], [place] [phone] Appt confirmed with Augusto at [facility] Follow Up 04/25/2013 Patient Education: Patient Medication Summary Completed 04/25/2013 Appointment: Cherri Holguin WPtel: [address] [place], [place] [phone] 04/[address] [facility] FOLLOW UP 04/23/2013 Visit Plan: Continue current meds 01/22/2013 Appointment: Cherri Holguin WPtel: [address] [place] [phone] 01/22 vm left FOLLOW UP 01/22/2013 Patient Education: Patient Medication Summary Completed 01/22/2013 Appointment: Cher[facility] Holguin [facility]Ptel[facility] [phone] [facility] 11/20 left message...patient called in a t 10:00am and said she was unable to get to her car. She rescheduled for 11/27 11am 11/24 left message 11/29 called to confirm, patient cancell ed due to no ride from [facility]. patient will call [facility] and see when they can bring her and then call us to schedule FOLLOW UP 11/30/2012 Visit Plan: Going to go home at the end of week with caregiver Continue current meds 10/18/2012 Appointment: Cherri Holguin [facility]Ptel[facility] [phone] [facility] 10/17 appt confirmed with Reyna FOLLOW UP 10/18/2012 Patient Education: Patient Medication Summary Completed 10/18/2012 Visit Plan: Continue and finish PT Sultana devorahe current meds Fwup October 19 or --pts 100 days is up October 21 09/25/2012 Appointment: Cherri Holguin WPtel: [address] [place] [phone] [place] worked in since [facility] just droppe d her off. She was on shedule at one point but showed it was cancelled WORK IN Appointment: Cherri Holguin WPtel: [address] [place], [place] [phone] 07/17 Cancelled 09/25 Appt - Patient has appointments on 07/08 & 07/27 FOLLOW UP 09/25/2012 Patient Education: Patient Medication Summary Completed 09/25/2012 Visit Plan: Continue current meds Pt wan ts to go home when her 100 days are up 08/24/2012 Appointment: Cherri Holguin WPtel: [address] [place], [place] [phone] FOLLOW UP 08/24/2012 Patient Education: Patient Medication Summary Completed 08/24/2012 Visit Plan: DC tramadol Repeat UA and ch edu UDS Start PT for neck Discussed neurology eval, but pt has been to several in past and even [facility] 07/27/2012 Appointment: Cherri Holguin WPtel: [address] [place], [place] [id number] FOLLOW UP 07/27/2012 Patient Education: Patient Medication Summary Completed 07/27/2012 Appointment: Cherri Holguin WPtel: [address] [place], [place] [id number] 07/17 - left message..07/17 left message with Antonella at [facility] pt has appt tomorrow and on I think the 07/18 appt was scheduled prior to hospitalization. 07/18 no showed. just entered fpc so no show is forgiven FOLLOW UP 07/18/2012 Appointment: Tasneem Esquivel WPtel: [address] [place], [place] [phone] ACUTE ILLNESS 07/05/2012 Patient Education: Patient Medication Summary Completed 07/05/2012 Appointment: Cherri Holguin WPtel: [phone] FOLLOW UP 05/29/2012 Patient Education: Patient Medication Summary Completed 05/29/2012 Appointment: Cherri Holguin WPtel: [address] [place] [address] FOLLOW UP 02/02/2012 Patient Education: Patient Medication Summary Completed 02/02/2012 Visit Plan: Continue current meds Check CBC, CMP, TSH, Free T4, B12 11/03/2011 Appointment: Cherri Holguin WPtel: [address] [place] [address] FOLLOW UP 11/03/2011 Patient Education: Patient Medication Summary Completed 11/03/2011 Visit Plan: Adderall refilled Continue c urrent meds 08/25/2011 Appointment: Cherri Holguin WPtel: [address] [place] [address] FOLLOW UP 08/25/2011 Patient Education: Patient Medication Summary Completed 08/25/2011 Appointment: Cherri Holguin WPtel: [address] [place] [address] Appointment was confirmed. FOLLOW UP 08/16 Visit [...] [facility] Appointment: Tasneem Esquivel WPtel: [address] [place] [address] ACUTE ILLNESS 05/27/2011 Patient Education: Patient Medication Summary Completed 05/27/2011 Visit Plan: Continue increased dose of A dderall 04/15/2011 Appointment: Cherri Holguin WPtel: [address] [place] [address] FOLLOW UP 04/15/2011 Patient Education: Patient Medication Summary Completed 04/15/2011 Appointment: Cherri Holguin WPtel: [address] [place], [place] [id number] FOLLOW UP 03/22/2011 Patient Education: Patient Medication Summary Completed 03/22/2011 Appointment: Cherri Holguin WPtel: [address] [place], [place] [phone] FOLLOW UP 02/25/2011 Visit Plan: Trial of Wellbutrin XL 150mg q AM 02/22/2011 Appointment: Cherri Holguin WPtel: [address] [place], [place] [phone] FOLLOW UP 02/22/2011 Patient Education: Patient Medication Summary Completed 02/22/2011 Visit Plan: Continue PT Add Cymbalta 30m g daily 01/26/2011 Appointment: Cherri Holguin WPtel: [address] [place], [place] [address] FOLLOW UP 01/26/2011 Patient Education: Patient Medication Summary Completed 01/26/2011 Visit Plan: Cont current meds and PT Exa m for Power chair completed Adderall rx refilled 06/15/2010 Appointment: Cherri Holguin WPtel: [address] [place], [place] [phone] ESTABLISHED PATIENT 06/15/2010 Patient Education: Patient Medication Summary Completed 06/15/2010 Visit Plan: To rehab today for PT/OT--I will follow on rehab unit 05/04/2010 Appointment: Cherri Holguin WPtel: [address] [place], [place] [phone] FOLLOW UP 05/04/2010 Patient Education: Patient Medication Summary Completed 05/04/2010 Visit Plan: Cont PT Cont Forteo Long dis cussion about living home--will discuss with PT when finishes this session 03/03/2010 Appointment: Cherri Holguin WPtel: [address] [place], [place] [phone] FOLLOW UP 03/03/2010 Patient Education: Patient Medication Summary Completed 03/03/2010 Visit Plan: EGD by Dr. Dang Pt agrees to restart Forteo 10/20/2009 Appointment: Cherri Holguin WPtel: [phone] [id number] FOLLOW UP 10/20/2009 Patient Education: Patient Medication Summary Completed 10/20/2009 Referral: Antonio Gandhi WPtel: [phone] [id number] [place] Referral Initiated Instructions Comment . Low-dose [...] meds Patient following with [facility] end of October . Patient is [...] been to several in past and even [facility] . Continue current meds Check CBC, CMP, TSH, Free T4, B12 . Adderall refilled Continue current meds . 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 Will use eye bj p.(Cipro as she claims allergy (nausea). Pt. is accompanied by "grounds keepers" from [facility]. Written instructions given for pt. to be [...]
--- OUTSIDE RECORDS SUMMARY | 2020-03-05 20:54 | XMS REPORT | Continuity of Care Document ---
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 PERSONAL HISTORY OF MALIGNANT NEOPLASM O 06/11/2019 CHERRI HOLGUIN DO S Ot M81.0 AGE-RELATED OSTEOPOROSIS W/O CURRENT PAT 06/12/2019 [facility] DO, CHERRI S Ot M81.0 AGE-RELATED OSTEOPOROSIS W/O CURRENT PAT 06/29/2019 [facility], CHERRI S Ot M81.0 AGE-RELATED OSTEOPOROSIS W/O CURRENT PAT 07/02/2019 [facility], CHERRI S Ot M81.0 AGE-RELATED OSTEOPOROSIS W/O CURRENT PAT 07/03/2019 [facility] DO, CHERRI S Ot M81.0 AGE-RELATED OSTEOPOROSIS W/O CURRENT PAT [facility]/03[facility] Z13.820 ENCOUNTER FOR SCREENING FOR OSTEOPOROSIS 07/03/2019 [facility] S Ot Z78.0 ASYMPTOMATIC MENOPAUSAL STATE 07/05/2019 [facility] DO, CHERRI S Ot M81.0 AGE-RELATED OSTEOPOROSIS W/O CURRENT PAT 08/13/2019 [facility] S Ot Z12.31 ENCNTR SCREEN MAMMOGRAM FOR MALIGNANT NE 08/17/2019 [facility] S Ot Z12.31 ENCNTR SCREEN MAMMOGRAM FOR MALIGNANT NE 08/24/2019 [facility] CH[facility]RI S Ot Z12.31 ENCNTR SCREEN MAMMOGRAM FOR MALIGNANT NE 08/24/2019 [facility] DO, CHERRI S Ot Z12.31 ENCNTR SCREEN MAMMOGRAM FOR MALIGNANT NE 08/29/2019 [facility] DO, CHERRI S Ot Z12.31 ENCNTR SCREEN MAMMOGRAM FOR MALIGNANT NE 09/14/2019 [facility] DO, CHERRI S Ot Z12.31 ENCNTR SCREEN MAMMOGRAM FOR MALIGNANT NE 10/05/2019 W G73.7 Myop athy in diseases classified elsewhere Ezio, Cherri S. 10/05/2019 W M62.81 Mus arnoldo weakness (generalized) Orender, Cherri S. 12/03/2019 W K59.00 Con stipation Orender, Cherri S. 12/03/2019 W L89.159 Sa cral decubitus ulcer Orender, Cherri S. 12/03/2019 W K59.00 Con stipation Orender, Cherri S. 12/03/2019 W L89.159 Sa cral decubitus ulcer Orendnannette, Cherri S. 12/11/2019 W L03.114 Le ft arm cellulitis Vickie Holguinline S. 12/11/2019 W S41.112A S kin tear of left upper extremity Cherri Holguin S. 12/11/2019 W L03.114 Le ft arm cellulitis Cherri Holguin S. 12/11/2019 W S41.112A S kin tear of left upper extremity Vickie Holguinline S. 02/20/2020 W G81.92 Hem iplegia, unspecified affecting left dominant side MianndVickie govealine S. 02/20/2020 W K21.9 Tash ro-esophageal reflux disease without esophagitis MianndVickie govealine S. 02/20/2020 W M62.81 Mus arnoldo weakness (generalized) Vickie Holguinline S. 02/20/2020 W G81.92 Hem iplegia, unspecified affecting left dominant side Vickie Holguinline S. 02/20/2020 W K21.9 Tash ro-esophageal reflux disease without esophagitis MianndVickie govealine S. 02/20/2020 W M62.81 Mus arnoldo weakness (generalized) Cherri Holguin S. Procedures There is no data. Results Test Result Range Methicillin resistant Staphylococcus aur eus (MRSA) screening culture - 06/02/17 12:15 Methicillin resistant Staphylococcus aureus (MRSA) scr eening culture NEG NRG Bacteria identification in isolate by an aerobe culture - 06/22/17 09:18 Bacteria identification in isolate by anaerobe culture NOANA NRG Gram stain microscopy - 06/22/17 09:18 GRAM STAIN RESULT FEW GRAM POSITIVE COCCI RESEMBLI NG STAPH NRG Bacteria identification in wound by cult ure - 06/22/17 09:18 Bacteria identification in wound by culture [id number] NR FREE TEXT EXTERNAL SENSITIVITY REPORTED AT 0903, 1 08-24-16 NRG QUANTITY OF GROWTH Moderate Growth NRG MRSA AGAR Screening test for MRSA is N EGATIVE (Final to follow) NR Bacterial susceptibility panel - 7 09:18 Oxacillin susceptibility test by minimum inhibitory co ncentration 0.5 NRG Gentamicin susceptibility test by minimum inhibitory c oncentration <= NRG Clindamycin susceptibility test by minimum inhibitory concentration >= NRG Erythromycin susceptibility test by minimum inhibitory concentration >= NRG Trimethoprim/sulfamethoxazole susceptibi lity test by minimum inhibitoryconcentration S NRG Vancomycin susceptibility test by minimum inhibitory c oncentration 1 NRG Levofloxacin susceptibility test by minimum inhibitory concentration >= NRG Rifampin susceptibility test by minimum inhibitory con centration <= NRG Tetracycline susceptibility test by minimum inhibitory concentration <= NRG Ciprofloxacin susceptibility test by minimum inhibitor y concentration R NRG Gram stain microscopy - 06/25/17 00:30 GRAM STAIN RESULT FEW GRAM POSITIVE COCCI NRG Bacteria identification in wound by cult ure - 06/25/17 00:30 Bacteria identification in wound by culture [id number] NRG FREE TEXT EXTERNAL SENSITIVITY REPORTED AT 1229, 1 08-26-16 NRG QUANTITY OF GROWTH Moderate Growth NRG MRSA AGAR Screening test for MRSA is N EGATIVE (Final to follow) [facility] Bacterial susceptibility panel - 7 00:30 Oxacillin susceptibility test by minimum inhibitory co ncentration <= NRG Gentamicin susceptibility test by minimum inhibitory c oncentration <= NRG Clindamycin susceptibility test by minimum inhibitory concentration >= NRG Erythromycin susceptibility test by minimum inhibitory concentration >= NRG Trimethoprim/sulfamethoxazole susceptibi lity test by minimum inhibitoryconcentration S NRG Vancomycin susceptibility test by minimum inhibitory c oncentration 1 NRG Levofloxacin susceptibility test by minimum inhibitory concentration >= NRG Rifampin susceptibility test by minimum inhibitory con centration <= NRG Tetracycline susceptibility test by minimum inhibitory concentration <= NRG Ciprofloxacin susceptibility test by minimum inhibitor y concentration R NRG Complete blood count (CBC) with automate d white blood cell (WBC) differential - 06/28/17 14:50 Blood leukocytes automated count (number/volume) 12.0 10*3/uL 4.3-11.0 Blood erythrocytes automated count (number/volume) 5.04 10*6/uL 4.35-5.85 Venous blood hemoglobin measurement (mass/volume) 13.6 g/dL 11.5-16.0 Blood hematocrit (volume fraction) 44 % 35-52 Automated erythrocyte mean corpuscular volume 87 [ foz_us] 80-99 Automated erythrocyte mean corpuscular h emoglobin (mass per erythrocyte) 27 pg 25-34 Automated erythrocyte mean corpuscular h emoglobin concentration measurement (mass/volume) 31 g/dL 32-36 Automated erythrocyte distribution width ratio 14. 9 % 10.0- 14.5 Automated blood platelet count (count/volume) 507 10*3/uL [...] 10*3 1.0-4.0 Blood monocytes automated count (number/volume) 0. 9 10*3 0.0-1.0 Automated eosinophil count 0.5 10*3/uL 0 .0-0.3 Automated blood basophil count (count/volume) 0.1 10*3/uL 0.0-0.1 Comprehensive metabolic panel - 06/28/17 14:50 Serum or plasma sodium measurement (moles/volume) 149 mmol/L 135-145 Serum or plasma potassium measurement (moles/volume) 3.6 mmol/L 3.6-5.0 Serum or plasma chloride measurement (moles/volume) 109 mmol/L 98-107 Carbon dioxide 28 mmol/L 21-32 Serum or plasma anion gap determination (moles/volume) 12 mmol/L 5-14 Serum or plasma urea nitrogen measurement (mass/volume ) 23 mg/dL 7-18 Serum or plasma creatinine measurement (mass/volume) 0.85 mg/dL 0.60-1.30 Serum or plasma urea nitrogen/creatinine mass ratio 27 NRG Serum or plasma creatinine measurement w ith calculation of estimated glomerular filtration rate > NRG Serum or plasma glucose measurement (mass/volume) 113 mg/dL 70-105 Serum or plasma calcium measurement (mass/volume) 9.8 mg/dL 8.5-10.1 Serum or plasma total bilirubin measurement (mass/volu me) 0.2 mg/dL 0.1-1.0 Serum or plasma alkaline phosphatase nakia surement (enzymatic activity/volume) 123 U/L 40-136 Serum or plasma aspartate aminotransfera se measurement (enzymatic activity/volume) 27 U/L 5-34 Serum or plasma alanine aminotransferase measurement (enzymatic activity/volume) 20 U/L 0-55 Serum or plasma protein measurement (mass/volume) 8.6 g/dL 6.4-8.2 Serum or plasma albumin measurement (mass/volume) 3.8 g/dL 3.2-4.5 Methicillin resistant Staphylococcus aur eus (MRSA) screening culture - 06/28/17 17:00 Methicillin resistant Staphylococcus aureus (MRSA) scr eening culture NEG NRG Bacteria identification in isolate by an aerobe culture - 06/28/17 17:30 Bacteria identification in isolate by anaerobe culture NOANA NRG Gram stain microscopy - 06/28/17 17:30 GRAM STAIN RESULT RODS NRG Bacteria identification in wound by cult ure - 06/28/17 17:30 Bacteria identification in wound by culture [id number] NRG FREE TEXT EXTERNAL SENSITIVITY REPORTED 06/30/17 7 :50 NRG QUANTITY OF GROWTH Moderate Growth NRG Bacterial susceptibility panel - 7 17:30 Oxacillin susceptibility test by minimum inhibitory co ncentration 0.5 NRG Gentamicin susceptibility test by minimum inhibitory c oncentration <= NRG Clindamycin susceptibility test by minimum inhibitory concentration >= NRG Erythromycin susceptibility test by minimum inhibitory concentration >= NRG Trimethoprim/sulfamethoxazole susceptibi lity test by minimum inhibitoryconcentration S NRG Vancomycin susceptibility test by minimum inhibitory c oncentration 1 NRG Levofloxacin susceptibility test by minimum inhibitory concentration >= NRG Rifampin susceptibility test by minimum inhibitory con centration <= NRG Tetracycline susceptibility test by minimum inhibitory concentration <= NRG Ciprofloxacin susceptibility test by minimum inhibitor y concentration R NRG Encounters ACCT No. Visit Date/Time Discharge Status Pt. Type Provider Facility Loc./Unit Complaint [id number] 02/06/2015 14:39:00 Document Registration [id number] 03/05/2020 19:11:00 20:34:00 DIS Emergency FELIPE BURRELL APRN [facility] ER HEAD INJ [id number] 12/28/2019 13:00:00 23:59:59 CLS Preadmit CHERRI HOLGUIN DO [facility] M81.0 OSTEOPORO SIS [id number] 08/23/2019 14:39:00 23:59:59 CLS Outpatient CHERRI HOLGUIN DO [facility] RAD SCREENING [id number] 06/29/2019 08:12:00 09:15:00 DIS Outpatient CHERRI HOLGUIN DO S [facility] M81.0 OSTEOPORO SIS [id number] 06/12/2019 14:11:00 23:59:59 CLS Outpatient CHERRI HOLGUIN DO [facility] RAD OSTEOPOROSIS [id number] 10/02/2018 07:14:00 23:59:59 CLS Outpatient VELVET AGUILAR MD [facility] ENDO SCREENING [id number] 09/26/2018 14:14:00 16:00:00 DIS Outpatient VELVET AGUILAR MD [facility] PREOP COLONOSCOPY [id number] 08/15/2018 09:58:00 23:59:59 CLS Outpatient CJ BETANCOURT COOK PRESSURE [facility] RAD SCREENING [id number] 07/27/2017 08:27:00 017 23:59:59 CLS Outpatient JIM SURESH MD [facility] WOUNDCARE [id number] 07/13/2017 08:14:00 017 23:59:59 CLS Outpatient TUNG STYLES COOK PRESSURE [facility] RAD POSSIBLE FISTUL A [id number] 07/06/2017 09:07:00 017 23:59:59 CLS Outpatient JIM SURESH MD [facility] WOUNDCARE [id number] 06/28/2017 16:08:00 017 11:45:00 DIS Outpatient CARLOS WHITE MD [facility] INCISION DRAINING OF ABD ABSCESS [id number] 06/25/2017 00:30:00 017 23:59:59 CLS Outpatient CHERRI HOLGUIN DO [facility] MSL WOUND CULTURE [id number] 06/22/2017 08:58:00 23:59:59 CLS Outpatient JIM SURESH MD [facility] WOUNDCARE [id number] 06/15/2017 09:04:00 23:59:59 CLS Outpatient JIM SURESH MD [facility] WOUNDCARE [id number] 06/02/2017 12:00:00 18:20:00 DIS Outpatient CARLOS WHITE MD [facility] SDC NONHEALING WOUNDS [id number] 06/01/2017 08:55:00 23:59:59 CLS Outpatient JIM SURESH MD [facility] WOUNDCARE [id number] 05/30/2017 05:30:00 11:55:00 DIS Outpatient CARLOS WHITE MD [facility] PREOP NON HEALING WOUNDS [id number] 05/25/2017 09:03:00 23:59:59 CLS Outpatient JIM SURESH MD [facility] WOUNDCARE [id number] 05/11/2017 08:58:00 23:59:59 CLS Outpatient JIM SURESH MD [facility] WOUNDCARE [id number] 05/04/2017 09:54:00 23:59:59 CLS Outpatient JIM SURESH MD [facility] WOUNDCARE [id number] 10/26/2016 13:13:00 017 23:59:59 CLS Outpatient CHERRI HOLGUIN DO [facility] RAD T85.09 [id number] 06/07/2014 10:12:00 014 23:59:59 CLS Outpatient CHERRI HOLGUIN DO [facility] RAD JOHNSON OF THROAT , OTHER DYSPHAGIA, FEEDING TUBE [id number] 02/21/2014 13:42:00 17:14:00 DIS Emergency GAMAL BALDERAS MD [facility] ER JOHNSON TO CHEST [id number] 06/20/2013 08:40:00 013 13:51:00 DIS Outpatient CHERRI HOLGUIN DO [facility] REHAB LEFT HEMIPARESIS,WEAKNESS,CONTRACTURES [id number] 04/06/2013 15:20:00 013 11:45:00 DIS Inpatient CHERRI HOLGUIN DO [facility] 4TH VOLUME DEPLETIO N,STAGE 1 DECUBITUS COCCYX [id number] 04/23/2015 09:31:00 Document Registration [id number] 04/23/2015 09:31:00 Document Registration [id number] 07/10/2012 12:26:00 Document Registration [id number] 09/24/2011 11:38:00 Document Registration [id number] 01/05/2011 12:50:00 Document Registration [id number] 05/25/2010 14:41:00 Document Registration [id number] 05/04/2010 16:31:00 Document Registration [id number] 10/30/2009 10:18:00 Document Registration 10/12/10 06/11/2019 13:04:36 06/11/2019 23:59: 59 CLS Outpatient Cherri Holguin 106 10/01/2019 13:49:00 Document Registration
== END 2020-03-05 20:34 | disposition home or self-care (01) ==
LOC: EDUNIT# 19:09 → ER 19:11
DX: S01.81XA Laceration without foreign body of other part of head, initial encounter (principal); K21.9 Gastro-esophageal reflux disease without esophagitis; K59.09 Other constipation; R40.2352 Coma scale, best motor response, localizes pain, at arrival to emergency department; R40.2142 Coma scale, eyes open, spontaneous, at arrival to emergency department; R40.2212 Coma scale, best verbal response, none, at arrival to emergency department; F17.210 Nicotine dependence, cigarettes, uncomplicated; Z79.82 Long term (current) use of aspirin; Z88.1 Allergy status to other antibiotic agents; Z88.5 Allergy status to narcotic agent; Z85.828 Personal history of other malignant neoplasm of skin; Z85.841 Personal history of malignant neoplasm of brain; Z85.820 Personal history of malignant melanoma of skin; Z23 Encounter for immunization; V00.811A Fall from moving wheelchair (powered), initial encounter; Y92.129 Unspecified place in nursing home as the place of occurrence of the external cause
CPT/HCPCS: 70450; 72125; 90715

== ENCOUNTER 2020-04-01 09:40 | Outpatient (CLI) | payer MEDICARE, MEDICAID ==
[~2020-04-01] VITALS: Ht 157.5 cm; Wt 50.0 kg
[2020-04-01] MEDS ORDERED: DENOSUMAB 60 MG/1 ML (PROLIA) SQ SCH (10:00)
[2020-04-01 10:11] VITALS: BP 105/55
== END 2020-04-01 10:11 | disposition home or self-care (01) ==
LOC: SDC 09:40
PROVIDERS: ATTEND Family Medicine
DX: M81.0 Age-related osteoporosis without current pathological fracture (principal)
CPT/HCPCS: 96372

== ENCOUNTER 2020-12-07 17:35 | Emergency (ER) | payer MEDICARE, MEDICAID ==
[~2020-12-07] VITALS: Ht 157 cm; Wt 68.0 kg
[~2020-12-07 17:35] MED LIST changes: -AMIT10TA6 PO; +AMT10T PO; -RABE20TA27 PO; +RABE20TA30 PO
--- NOTE | 2020-12-07 17:39 | ED Fall/Injury ---
General Chief Complaint: Trauma-Non Activation Stated Complaint: FALL Source: patient Exam Limitations: no limitations History of Present Illness Date Seen by Provider: December 07, 2020 Time Seen by Provider: 17:38 Initial Comments To ER with reports of an unwitnessed fall at [facility]. She has Parkinson's and is nearly aphasic. She complains of pain to the right hip and she has a goose egg to the right side of the forehead. [facility] of her multiple sclerosis and advanced Parkinson's disease. She is nonambulatory, she is a 2 person transfer and wheelchair-bound. Occurred: just prior to arrival Severity: moderate Injuries/Pain Location: head, lower extremity Context: unknown Loss of Consciousness: no loss of consciousness Associated Symptoms (Fall): Denies Symptoms Allergies and Home Medications Allergies Coded Allergies: erythromycin base (Verified Allergy, Unknown, 06/28/17) Uncoded Allergies: CHROME SUTURES (Allergy, Unknown, 01/07/09) Home Medications Acetaminophen 650 Mg Tablet.er, 650 MG PO Q4H PRN for PAIN-MILD, (Reported) Amitriptyline HCl 10 Mg Tablet, 10 MG PO HS, (Reported) Aspirin 81 Mg Tablet.dr, 81 MG PO HS, (Reported) Bisacodyl 5 Mg Tablet.dr, 5 MG PO Q12H PRN for CONSTIPATION-4TH LINE, (Reported) Cholecalciferol (Vitamin D3) 5,000 Unit Capsule, 5,000 UNIT PO HS, (Reported) Docusate Sodium 100 Mg Capsule, 100 MG PO Q8H PRN for CONSTIPATION-1ST LINE, (Reported) Duloxetine HCl 30 Mg Capsule.dr, 30 MG PO DAILY, (Reported) Glycerin 5.4 Gm/5.4 Ml Tonia.pf.logan, 5.4 GM RC TuSa, (Reported) Hydrocodone Bit/Acetaminophen 1 Each Tablet, 1 TAB PO Q4H, (Reported) Hyoscyamine Sulfate 0.125 Mg Tablet, 0.125 MG PO Q4H PRN for INCREASE ORAL SECREATIONS, (Reported) Magnesium Hydroxide 400 Mg/5 Ml Oral.susp, 30 ML PO DAILY PRN for CONSTIPATION- 7TH LINE, (Reported) Multivitamin with Minerals 1 Each Tablet, 1 TAB PO HS, (Reported) Potassium Chloride 10 Meq Capsule.er, 10 MEQ PO HS, (Reported) Rabeprazole Sodium 20 Mg Tablet.dr, 20 MG PO DAILY, (Reported) Sennosides 8.6 Mg Tablet, 17.2 MG PO BID, (Reported) TAKE 2 (8.6MG) TABS Patient Home Medication List Home Medication List Reviewed: Yes Review of Systems Review of Systems Constitutional: see HPI Eyes: No Symptoms Reported Ears, Nose, Mouth, Throat: no symptoms reported Respiratory: no symptoms reported Cardiovascular: no symptoms reported Genitourinary: no symptoms reported Musculoskeletal: see HPI Skin: no symptoms reported Psychiatric/Neurological: No Symptoms Reported Past Ylstivz-Pbfghf-Qxxqfe Hx Patient Social History Type Used: Cigarettes Recent Hopitalizations: No Immunizations Up To Date Tetanus Booster (TDap): Unknown Date of Influenza Vaccine: Apr 27, 2018 Seasonal Allergies Seasonal Allergies: Yes Past Medical History Surgeries: Yes (shunt x2, SKIN ) Gallbladder, Tonsillectomy Respiratory: Yes COPD Cardiac: No Neurological: Yes (HX BRAIN TUMOR, MEMORY LOSS) Parkinson's Disease Reproductive Disorders: No Female Reproductive Disorders: Denies Sexually Transmitted Disease: No HIV/AIDS: No Genitourinary: No Gastrointestinal: Yes (HX OF ANOREXIA AT AGE 16) Gastroesophageal Reflux, Chronic Constipation Musculoskeletal: Yes (MS) Osteoporosis, Arthritis Endocrine: No HEENT: No Loss of Vision: Denies Hearing Impairment: Denies Cancer: Yes Brain, Skin, Melanoma What Type of Treatment Did You: Surgical Intervention Psychosocial: Yes Sleep Difficulties Integumentary: No Blood Disorders: No Family Medical History No Pertinent Family Hx Physical Exam Vital Signs Vital Signs - First Documented Capillary Refill : Height, Weight, BMI Height: 5'2.00" Weight: 132lbs. 0.0oz. 59.333470zu; 24.1 BMI Method:Stated General Appearance: WD/WN, no apparent distress HEENT: PERRL/EOMI, normal ENT inspection, other (There is a large fluctuant hematoma to the right side of the forehead without open wound) Neck: non-tender, full range of motion Respiratory: no respiratory distress, no accessory muscle use Gastrointestinal: normal bowel sounds, non tender, soft, other (Soft nontender) Extremities: no calf tenderness (She has some superficial skin tears to the dorsal aspect of each forearm. No obvious deformity or significant pain to either forearm.), normal capillary refill, other (She keeps the right hip in a flexed position. She complains of pain to the right hip. For the most part she is aphasic but when asked if she hurts anywhere she says "my hip" in a very delayed fashion.) Neurologic/Psychiatric: alert, normal mood/affect, oriented x 3 Skin: normal color, warm/dry Haywood Coma Score Best Eye Response: (4) Open Spontaneously Best Verbal Response: (4) Confused Conversation Best Motor Response: (6) Obeys Commands Petr Total: 14 Progress/Results/Core Measures Results/Orders Lab Results Laboratory Tests Test 12/07/20 18:32 12/07/20 18:55 Range/Units White Blood Count 13.8 H 4.3-11.0 10^3/uL Red Blood Count 5.13 H 3.80-5.11 10^6/uL Hemoglobin 14.5 11.5-16.0 g/dL Hematocrit 47 35-52 % Mean Corpuscular Volume 91 80-99 fL Mean Corpuscular Hemoglobin 28 25-34 pg Mean Corpuscular Hemoglobin Concent 31 L 32-36 g/dL Red Cell Distribution Width 14.0 10.0-14.5 % Platelet Count 345 130-400 10^3/uL Mean Platelet Volume 9.9 9.0-12.2 fL Immature Granulocyte % (Auto) 1 % Neutrophils (%) (Auto) 79 H 42-75 % Lymphocytes (%) (Auto) 13 12-44 % Monocytes (%) (Auto) 5 0-12 % Eosinophils (%) (Auto) 2 0-10 % Basophils (%) (Auto) 0 0-10 % Neutrophils # (Auto) 10.9 H 1.8-7.8 10^3/uL Lymphocytes # (Auto) 1.9 1.0-4.0 10^3/uL Monocytes # (Auto) 0.7 0.0-1.0 10^3/uL Eosinophils # (Auto) 0.2 0.0-0.3 10^3/uL Basophils # (Auto) 0.1 0.0-0.1 10^3/uL Immature Granulocyte # (Auto) 0.2 H 0.0-0.1 10^3/uL Sodium Level 146 H 135-145 MMOL/L Potassium Level 3.9 3.6-5.0 MMOL/L Chloride Level 109 H 98-107 MMOL/L Carbon Dioxide Level 25 21-32 MMOL/L Anion Gap 12 5-14 MMOL/L Blood Urea Nitrogen 18 7-18 MG/DL Creatinine 0.92 0.60-1.30 MG/DL Estimat Glomerular Filtration Rate > 60 BUN/Creatinine Ratio 20 Glucose Level 102 70-105 MG/DL Calcium Level 9.7 8.5-10.1 MG/DL Corrected Calcium 9.5 8.5-10.1 MG/DL Total Bilirubin 0.2 0.1-1.0 MG/DL Alkaline Phosphatase 113 40-136 U/L Total Protein 7.8 6.4-8.2 GM/DL Albumin 4.2 3.2-4.5 GM/DL My Orders Orders - FELIPE BURRELL APRN Ct Head/Cervical Spine Wo (12/07/20 17:36) Pelvis With Right Hip 2-3views (12/07/20 17:36) Dipht,Pertuss(Acell),Tet Adult (Boostrix (12/07/20 17:45) Cbc With Automated Diff (12/07/20 18:19) Comprehensive Metabolic Panel (12/07/20 18:19) Ua Culture If Indicated (12/07/20 18:19) Rg Cath (12/07/20 18:19) Ekg Tracing (12/07/20 18:19) Fentanyl Inj (Sublimaze Injection) (12/07/20 18:30) Medications Given in ED Current Medications Medications Dose Ordered Sig/Sarah Route Start Time Stop Time Status Last Admin Dose Admin Diphtheria/ Tetanus/Acell Pertussis 0.5 ml ONCE ONCE IM 12/07/20 17:45 12/07/20 17:46 DC 12/07/20 18:37 0.5 ML Fentanyl Citrate 25 mcg ONCE ONCE IVP 12/07/20 18:30 12/07/20 18:31 DC 12/07/20 18:36 25 MCG Vital Signs/I&O 12/07/20 12/07/20 17:41 17:41 Temp 36.1 36.1 Pulse 96 96 Resp 18 18 B/P (MAP) 142/96 (111) 142/96 (111) Pulse Ox 96 96 Diagnostic Imaging Diagonstic Imaging: Xray Comments NAME: MARLYN BURROWS REC#: [id number] PT STATUS: REG ER : 1955 PHYSICIAN: FELIPE BURRELL APRN ADMIT DATE: 12/07/20/ER Draft Date of Exam:12/07/20 CT HEAD/CERVICAL SPINE WO INDICATION: Fall with head and neck pain. TECHNIQUE: Multiple contiguous axial images were obtained through the brain and cervical spine without the use of intravenous contrast. Sagittal and coronal reformations through the cervical spine were then performed. Auto Exposure Controls were utilized during the CT exam to meet ALARA standards for radiation dose reduction. COMPARISON: 03/05/2020. CT brain findings: There are diffuse atrophic changes. There is no acute intracranial hemorrhage. There are chronic low-density changes in the deep white matter. Bilateral shunt catheters are stable. Ventricular size is unchanged compared to the prior study with asymmetric prominence of the right lateral ventricle. Calcific density in the periventricular white matter is unchanged. There is no calvarial fracture. There is right frontal scalp swelling and scalp hematoma. There is a presumed small meningioma along the right side of the falx measuring 9 mm, unchanged from the prior study. CT cervical spine findings: There is no evidence of cervical spine fracture. There is no subluxation or malalignment. The facets are in good alignment. IMPRESSION: CT brain shows atrophic changes and chronic changes in the deep white matter with stable calcification in the right periventricular white matter. There are bilateral shunt catheters in place but no change in ventricular size compared to the prior study. There is no calvarial fracture. There is a presumed small meningioma along the right side of the falx, measuring about 9 mm. A right frontal scalp hematoma is noted. Dictated on workstation # [id number] Dict: 12/07/20 1812 Trans: 12/07/20 1824 [facility] [id number] Interpreted by: JESUS HARPER MD Electronically signed by: NAME: MARLYN BURROWS REC#: [id number] PT STATUS: REG ER : 1955 PHYSICIAN: FELIPE BURRELL APRN ADMIT DATE: 12/07/20/ER Draft Date of Exam:12/07/20 PELVIS WITH RIGHT HIP 2-3VIEWS INDICATION: Injury to right hip. EXAMINATION: AP pelvis and AP and lateral views of the right hip were obtained. FINDINGS: There is osteopenia. There is an acute right femoral neck fracture with slight impaction. There are postop changes in the left femoral neck and proximal shaft with no acute finding on the left side. IMPRESSION: Osteopenia. Acute right femoral neck fracture with mild impaction. Postop changes in left hip. Dictated on workstation # [id number] Dict: 12/07/201820 Trans: 12/07/201825 [facility] [id number] Interpreted by: JESUS HARPER MD Electronically signed by: Departure Communication (Admissions) 1846-patient's Sister Caroline is a nurse here. We do not have orthopedic coverage. Sister would prefer Claud[facility] Emanuel if possible as she is familiar with [address] physicians.. I called and they are on diversion. Spoke with [facility], accepted patient to ER. Impression Primary Impression: Fracture of right hip Qualified Codes: S72.001A - Fracture of unspecified part of neck of right femur, initial encounter for closed fracture Disposition: XFER SHT-TRM HOSP Condition: Stable Transfer Transfer Reason: Exceeds level of care Time Spoke to Accepting Phy: 18:46 Departure-Patient Inst. Referrals: BRIGETTE GIMENEZ DO (PCP/Family) Primary Care Physician FELIPE BURRELL CIGAR TOBACCO REHANDLER December 07, 2020 17:39
[2020-12-07] MEDS ORDERED: TETANUS,DIPTH,PERTUSS P/F (BOOSTRIX) 0.5 ML VIAL IM ONE (17:45)
--- NOTE | 2020-12-07 18:25 | Diagnostic Imaging Report ---
INDICATION: Fall with head and neck pain. TECHNIQUE: Multiple contiguous axial images were obtained through the brain and cervical spine without the use of intravenous contrast. Sagittal and coronal reformations through the cervical spine were then performed. Auto Exposure Controls were utilized during the CT exam to meet ALARA standards for radiation dose reduction. COMPARISON: 03/05/2020. CT brain findings: There are diffuse atrophic changes. There is no acute intracranial hemorrhage. There are chronic low-density changes in the deep white matter. Bilateral shunt catheters are stable. Ventricular size is unchanged compared to the prior study with asymmetric prominence of the right lateral ventricle. Calcific density in the periventricular white matter is unchanged. There is no calvarial fracture. There is right frontal scalp swelling and scalp hematoma. There is a presumed small meningioma along the right side of the falx measuring 9 mm, unchanged from the prior study. CT cervical spine findings: There is no evidence of cervical spine fracture. There is no subluxation or malalignment. The facets are in good alignment. IMPRESSION: CT brain shows atrophic changes and chronic changes in the deep white matter with stable calcification in the right periventricular white matter. There are bilateral shunt catheters in place but no change in ventricular size compared to the prior study. There is no calvarial fracture. There is a presumed small meningioma along the right side of the falx, measuring about 9 mm. A right frontal scalp hematoma is noted. Dictated by: Dictated on workstation # [id number]
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
[2020-12-07] MEDS ORDERED: fentaNYL INJ 100 MCG/2 ML AMP IVP ONE ×2 (18:30→19:00)
[2020-12-07 18:36] LABS: BASOPHILS # (AUTO) 0.1 10^3/uL (0.0-0.1); BASOPHILS % (AUTO) 0 % (0-10); EOSINOPHILS # (AUTO) 0.2 10^3/uL (0.0-0.3); EOSINOPHILS % (AUTO) 2 % (0-10); HEMATOCRIT 47 % (35-52); HEMOGLOBIN 14.5 g/dL (11.5-16.0); LYMPHOCYTES # (AUTO) 1.9 10^3/uL (1.0-4.0); LYMPHOCYTES % (AUTO) 13 % (12-44); MEAN CORPUSCULAR HEMOGLOBIN 28 pg (25-34); MEAN CORPUSCULAR HGB CONC 31 g/dL (32-36); MEAN CORPUSCULAR VOLUME 91 fL (80-99); MEAN PLATELET VOLUME 9.9 fL (9.0-12.2); MONOCYTES # (AUTO) 0.7 10^3/uL (0.0-1.0); MONOCYTES % (AUTO) 5 % (0-12); NEUTROPHILS # (AUTO) 10.9 10^3/uL (1.8-7.8); NEUTROPHILS % (AUTO) 79 % (42-75); PLATELET COUNT 345 10^3/uL (130-400); WHITE BLOOD COUNT 13.8 10^3/uL (4.3-11.0)
[2020-12-07 18:48] LABS: ALBUMIN 4.2 GM/DL (3.2-4.5); CHLORIDE 109 MMOL/L (98-107)
[2020-12-07 18:49] LABS: POTASSIUM 3.9 MMOL/L (3.6-5.0); SODIUM 146 MMOL/L (135-145)
[2020-12-07 18:50] LABS: CALCIUM 9.7 MG/DL (8.5-10.1)
[2020-12-07 18:51] LABS: GLUCOSE 102 MG/DL (70-105); TOTAL PROTEIN 7.8 GM/DL (6.4-8.2)
[2020-12-07 18:52] LABS: CARBON DIOXIDE 25 MMOL/L (21-32)
[2020-12-07 18:53] LABS: BILIRUBIN,TOTAL 0.2 MG/DL (0.1-1.0)
[2020-12-07 18:54] LABS: ALKALINE PHOSPHATASE 113 U/L (40-136); CREATININE SERUM 0.92 MG/DL (0.60-1.30); GFR ESTIMATED > 60
[2020-12-07 18:55] LABS: BUN/CREATININE RATIO 20
[2020-12-07 18:56] LABS: BILIRUBIN,URINE NEGATIVE (NEGATIVE); CLARITY,URINE CLEAR; COLOR,URINE YELLOW; GLUCOSE, URINE (UA) NEGATIVE (NEGATIVE); KETONES,URINE NEGATIVE (NEGATIVE); LEUKOCYTE ESTERASE ,URINE NEGATIVE (NEGATIVE); NITRITE,URINE NEGATIVE (NEGATIVE); PH,URINE 5.5 (5-9); PROTEIN,URINE NEGATIVE (NEGATIVE)
[2020-12-07 18:57] LABS: ALANINE AMINOTRANSFERASE 32 U/L (0-55)
[2020-12-07 19:02] LABS: BACTERIA,URINE NEGATIVE /HPF; SQUAMOUS EPITHELIAL CELL,UR RARE /HPF
[2020-12-07 19:10] LABS: PROTHROMBIN TIME PATIENT 13.2 SEC (12.2-14.7)
[2020-12-07 19:38] VITALS: BP 139/71
== END 2020-12-07 19:40 | disposition short-term general hospital (02) ==
LOC: EDUNIT# 17:35 → ER 17:36
DX: S72.001A Fracture of unspecified part of neck of right femur, initial encounter for closed fracture (principal); J44.9 Chronic obstructive pulmonary disease, unspecified; K21.9 Gastro-esophageal reflux disease without esophagitis; G20 Parkinson's disease; Z88.1 Allergy status to other antibiotic agents; Z23 Encounter for immunization; Z79.82 Long term (current) use of aspirin; Z79.899 Other long term (current) drug therapy; W19.XXXA Unspecified fall, initial encounter
CPT/HCPCS: 36415; 51702; 70450; 72125; 80053; 81000; 85025; 85610; 85730; 90715; 93005

== ENCOUNTER → 2021-08-11 | Outpatient (CLI) | payer MEDICARE, MEDICAID ==
[~2021-08-11] MED LIST changes: +DOXY-311 PO; -DOXY100C42 PO; +LANS15CA18 PO; -LANS15CA21 PO
--- NOTE | 2021-08-11 14:55 | Diagnostic Imaging Report ---
INDICATION: Postmenopausal COMPARISON: 06/12/2019 FINDINGS: The bone marrow density of the spine was measured. Reportedly there are postsurgical changes involving both hip joints. The total T score for the spine is -3.5. On the prior exam the T score is -4.0. Although there has been a slight increase in the bone mineral density in the spine since the prior exam the T score values continues to fall within the range of osteoporosis. AP Spine L1-L4: [BMD (g/cm2): 0.781] [T-Score: -3.5] [Z-Score: -2.0] [BMD Previous: 0.720] [BMD % Change: 8.5] LT Hip Neck: [BMD (g/cm2): NA] [T-Score: NA] [Z-Score: NA] LT Hip Total: [BMD (g/cm2):NA] [T-Score:NA] [Z-Score: NA] [BMD Previous: NA] [BMD % Change: NA] RT Hip Neck: [BMD (g/cm2):NA] [T-Score:NA] [Z-Score:NA] RT Hip Total: [BMD (g/cm2):NA] [T-score:NA] [Z-Score:NA] [BMD Previous:NA] [BMD % Change:NA] *Indicates significant change from prior examination based on 95% confidence level. World Health Organization criteria for BMD interpretation classify patients as Normal (T-score at or above -1.0), Osteopenic (T-score between -1.0 and -2.5) or Osteoporotic (T-score at or below -2.5). LIMITATIONS AND MODIFICATION: None. FRACTURE RISK (FRAX SCORE): The ten year probability of (%): Major Osteoporotic Fracture: [NA] Hip Fracture: [NA] IMPRESSION: 1. There has been a slight increase in the bone mineral density of the spine. The T score value however still continues to indicate osteoporosis. 2. The bone mineral density of the hips and femoral necks could not be obtained due to prior hip surgery. 3. See below National Osteoporosis Foundation guidelines on when to potentially initiate pharmacologic therapy. Based on the National Osteoporosis Foundation Guidelines, pharmacologic treatment should be initiated in any of the following, unless clinical conditions suggest otherwise: * Any patient with prior fragility fracture of the hip or vertebrae. A spine fracture indicates 5X risk for subsequent spine fracture and 2X risk for subsequent hip fracture. * Osteoporosis (T-score <-2.5). * Postmenopausal women and men age 50 and older with low bone mass/osteopenia (T-score between -1.0 and -2.5) by DXA and 10-year major osteoporotic fracture greater than 20% or a 10-year probability of hip fracture greater than 3%. These fracture risks are supplied above in the FRAX score, if applicable. * Clinician judgement and/or patient preferences may indicate treatment for people with 10-year fracture probabilities above or below these levels. Dictated by: Dictated on workstation # [id number]
== END ==
LOC: RAD 13:00
PROVIDERS: ATTEND Family Medicine
DX: M81.0 Age-related osteoporosis without current pathological fracture (principal); Z78.0 Asymptomatic menopausal state
CPT/HCPCS: 77080

== ENCOUNTER 2022-10-20 13:23 | Emergency (ER) | payer MEDICARE, MEDICAID ==
[~2022-10-20] VITALS: Ht 160 cm; Wt 65.0 kg
[~2022-10-20 13:23] MED LIST changes: +ACET-2717 PO; -ACET650T41 PO; +BISA5TAB20 PO; -BISA5TAB8 PO; -DOXY-311 PO; +DOXY-444 PO; -POTA10CA43 PO; +POTA10CA44 PO
[2022-10-20 13:39] LABS: BASOPHILS # (AUTO) 0.1 10^3/uL (0.0-0.1); BASOPHILS % (AUTO) 0 % (0-10); EOSINOPHILS % (AUTO) 0 % (0-10); HEMATOCRIT 50 % (35-52); HEMOGLOBIN 16.6 g/dL (11.5-16.0); LYMPHOCYTES % (AUTO) 4 % (12-44); MEAN CORPUSCULAR HEMOGLOBIN 29 pg (25-34); MEAN CORPUSCULAR HGB CONC 33 g/dL (32-36); MEAN CORPUSCULAR VOLUME 88 fL (80-99); MONOCYTES # (AUTO) 0.9 10^3/uL (0.0-1.0); MONOCYTES % (AUTO) 3 % (0-12); NEUTROPHILS # (AUTO) 25.2 10^3/uL (1.8-7.8); NEUTROPHILS % (AUTO) 92 % (42-75); PLATELET COUNT 346 10^3/uL (130-400); WHITE BLOOD COUNT 27.3 10^3/uL (4.3-11.0)
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
[2022-10-20 13:50] LABS: ALBUMIN 4.1 GM/DL (3.2-4.5); POTASSIUM 3.9 MMOL/L (3.6-5.0)
[2022-10-20 13:52] LABS: CALCIUM 9.8 MG/DL (8.5-10.1)
[2022-10-20 13:55] LABS: BILIRUBIN,TOTAL 0.7 MG/DL (0.1-1.0)
[2022-10-20 13:57] LABS: CREATININE SERUM 0.94 MG/DL (0.60-1.30)
[2022-10-20 13:59] LABS: BILIRUBIN,URINE NEGATIVE (NEGATIVE); CLARITY,URINE CLEAR; COLOR,URINE YELLOW; GLUCOSE, URINE (UA) NEGATIVE (NEGATIVE); KETONES,URINE 1+ (NEGATIVE); LEUKOCYTE ESTERASE ,URINE NEGATIVE (NEGATIVE); NITRITE,URINE NEGATIVE (NEGATIVE); PROTEIN,URINE TRACE (NEGATIVE)
--- NOTE | 2022-10-20 14:02 | Diagnostic Imaging Report ---
CLINICAL INDICATION: Patient is unresponsive. EXAM: Portable chest x-ray upright view. COMPARISON: Chest x-ray dated 02/21/2014. FINDINGS: Lungs/pleura: Lungs are clear. There is no pneumothorax. There is no pleural effusion. Mediastinum: Unremarkable. Pulmonary vasculature: Unremarkable. Heart: There is upper limits of normal heart size for portable projection.. Bones/extrathoracic soft tissue: There is left curvature of the thoracic spine. Surgical clips are seen overlying the right upper quadrant which could be related to cholecystectomy changes. IMPRESSION: There is no radiographic evidence of acute cardiopulmonary process. Dictated by: Dictated on workstation # [id number]
[2022-10-20 14:07] LABS: BAND NEUTROPHILS 4 %; LYMPHOCYTES % (MANUAL) 4 %; MONOCYTES % (MANUAL) 2 %; NEUTROPHILS % (MANUAL) 88 %; REACTIVE LYMPHOCYTES 2 %
[2022-10-20 14:08] LABS: FIBRIN DEGRADATION PRODUCTS 1.26 UG/ML (0.00-0.49); PROTHROMBIN TIME PATIENT 13.2 SEC (12.2-14.7)
--- NOTE | 2022-10-20 14:12 | Diagnostic Imaging Report ---
INDICATION: Unresponsive, stroke alert. TECHNIQUE: Multiple contiguous axial images were obtained through the brain without the use of intravenous contrast. Auto Exposure Controls were utilized during the CT exam to meet ALARA standards for radiation dose reduction. Comparison made to 12/07/2020. There is a large parenchymal hemorrhage arising from the superior portion of the reyes and midbrain. This measures about 4.2 x 4.8 cm in the axial plane. There is rupture into the 4th ventricle with blood filling the 4th ventricle. There is intraventricular hemorrhage in the lateral ventricles and 3rd ventricle. There is dilatation of the temporal horns of both lateral ventricles. The hemorrhage also extends into the left thalamus. There are underlying chronic ischemic changes in the deep white matter. Patient's had previous bilateral nerve stimulators which are unchanged compared to 12/07/2020. There is a small incidental right parafalcine meningioma, measuring about 9 mm, unchanged from the prior study. 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 There is also rupture of the ventricular system with blood in the lateral, 3rd, and 4th ventricles with dilatation of the ventricular system. Underlying chronic ischemic changes in the deep white matter are again noted. Bilateral nerve similar devices are again noted. Small incidental right parafalcine meningioma is unchanged. Faxed to [place] [facility] at 2:11 p.m. by bee. Dictated by: Dictated on workstation # [id number]
[2022-10-20 14:23] LABS: AMORPHOUS SEDIMENT,UR RARE AMOR URATES /LPF; BACTERIA,URINE TRACE /HPF; HYALINE CASTS, URINE RARE /LPF; SQUAMOUS EPITHELIAL CELL,UR RARE /HPF
[2022-10-20 14:46] VITALS: BP 132/54
== END 2022-10-20 14:50 | disposition home or self-care (01) ==
LOC: EDUNIT# 13:23 → ER 13:25
DX: I61.5 Nontraumatic intracerebral hemorrhage, intraventricular (principal)
CPT/HCPCS: 36415; 51702; 70450; 71045; 80053; 81000; 82947; 84484; 85007; 85027; 85379; 85610; 85730; 93005